=== PATIENT | female | born 1950 | race Caucasian/White ===

== ENCOUNTER 2021-08-04 17:07 | Inpatient (IN) ==
[2021-08-04] MEDS ORDERED: SODIUM CHLORIDE 0.9% 1000ML 500 ML IV ONE (17:13)
[2021-08-04] MEDS ORDERED: CEFEPIME 2,000 MG/20 ML VIAL IV STA (17:15)
--- NOTE | 2021-08-04 17:44 | XRay Report ---
XR chest 1V portable CLINICAL HISTORY: Sepsis. COMPARISON STUDY: No previous studies for comparison. FINDINGS: Dual lumen right internal jugular venous catheter is in place. No pneumothorax is identifie d although sensitivity is diminished on this supine exam. Cardiomegaly is accentuated on this study. Linear left basilar opacity favors atelectasis. Minimal linear right perihilar opacities are present. No evidence for pulmonary edema. No lobar consolidation. IMPRESSION: 1. Low lung volumes with linear bilateral opacities which favor atelectasis on this supine exam. 2. Mild enlargement of the cardiac silhouette. No evidence for pulmonary edema. 3. No pneumothorax identified. ACT 112: Negative or not required by law. Electronically signed by: Abram Pinon M.D. 08/04/2021 5:41 PM
--- NOTE | 2021-08-04 17:59 | CT Scan Report ---
CT OF THE HEAD WITHOUT CONTRAST CLINICAL HISTORY: Altered mental status. COMPARISON STUDY: No previous studies for comparison. TECHNIQUE: Helical axial images of the head were obtained without IV contrast. Automated exposure con trol was utilized for the study. A dose lowering technique was utilized adhering to the principles o f ALARA. FINDINGS: No acute intracranial hemorrhage, midline shift or mass effect is present. Prominence of th e extra-axial spaces is likely due to atrophy. The ventricular system is unremarkable. Basal cisterns are patent. There are no extra-axial collections. There is a small focus of encephalomalacia within the anterior right occipital lobe. This favors an old infarct. There are no findings to suggest acute dural sinus thrombosis or acute territorial infarct. White matter hypodensity suggests small vessel disease. Bilateral mastoid air cells are partially opacified. Sphenoid sinus because thickening is pr esent. No acute calvarial fracture. IMPRESSION: 1. No acute intracranial findings. 2. Moderate atrophy. 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 ACT 112: Negative or not required by law. Electronically signed by: Abram Pinon M.D. 08/04/2021 5:57 PM
--- NOTE | 2021-08-04 18:04 | Emergency Department Note ---
Impression & Plan Sepsis, AMS (altered mental status), Leukocytosis, Hypoxia ED Provider Note NAME: SHANEL HARDY AGE: 71 SEX: F : 1950 ARRIVES VIA: Ambulance INFORMANT: Patient ED PROVIDER(S): Nigel Begum DO CHIEF COMPLAINT: AMS HPI: Patient is a 71-year-old female who presents ER for the above AMS. Patient is a resident at [facility] on dialysis who presents to the ER for fever for the past 2 days associated with worsening confusion. History is limited secondary to mentation. Patient is rolling around on the bed moaning. Per senior living patient was doing well up until about 2 days ago and started having fevers. She was complaining of some back pain today otherwise has become significantly more confused ROS: History is limited secondary to mentation PAST MEDICAL HISTORY:See Below PAST SURGICAL HISTORY:See Below FAMILY HISTORY:See Below SOCIAL HISTORY:See Below HOME MEDICATIONS:See Below ALLERGIES:See Below VITALS:See Below PHYSICAL EXAMINATION: GENERAL: Lying in bed rolling around moaning EYE EXAM: normal conjunctiva. PERRL and EOM's grossly intact. OROPHARYNX: no exudate, no erythema, lips, buccal mucosa, and tongue normal and mucous membranes are moist NECK: supple, no nuchal rigidity, no adenopathy, non-tender CHEST: Central venous catheter located in right chest wall LUNGS: Bilaterally. Normal chest wall mechanics HEART: Tachy, S1 normal and S2 normal ABDOMEN: abdomen soft, non-tender, normo-active bowel sounds, no masses, no rebound or guarding. UPPER EXTREMITIES: upper extremities are grossly normal. LOWER EXTREMITIES: No pitting edema. NEURO EXAM: Moaning not following commands MEDICAL DECISION MAKING: Patient is a 71-year-old female who presents ER with above-stated complaint. IV was established blood was obtained. Labs show leukocytosis 25,000. No significant anemia. Blood work had to be redrawn for separate times. I-STAT showed potassium 7.4 although this was hemolyzed. Repeat blood work showed potassium 3.8 with a creatinine of 3.2 consistent with dialysis. Glucose was slightly up at 320. Lactate was normal. Troponin was elevated 0.23. Pro-Tez elevated at 8. Garcia was placed although unsure whether she makes urine or not regularly a fair amount of purulent material was removed. Covid was negative as well as influenza. Patient was given vancomycin and cefepime. Placed a central line in the right groin. Patient was placed on Levophed and this was titrated up due to the hypotension with systolic pressures in the 60s. Her baseline at senior living has been in the 90s. She was given a liter and half fluids prior to starting Levophed. Did also speak with his sister who notes that the patient is a DNR/DNI. Discussed starting vasopressors and she was unsure and noted that she would drive up but is over an hour away. As her her pressure deteriorated placed a central line for the pressors waiting for her sister. Stevie Lua PA-C was present at bedside and will discuss with sister additional goals of care. Triage Nursing notes reviewed. Limited review of prior medical records performed Vital Signs: reviewed and remarkable for no significant abnormalities Differential diagnosis: Differential diagnoses includes but is not limited to gastritis, peptic ulcer disease, GERD, gallbladder disease, pancreatitis, small bowel obstruction, acute coronary syndrome, pericarditis, ischemic bowel, irritable bowel disease, irritable bowel syndrome, appendicitis, diverticulitis, malignancy, hernia, urinary tract infection, torsion, /ectopic (if female), perforation, trauma, infectious. ER treatment provided: See below Diagnostics interpreted by me: ECG: Sinus tachycardia rate of 139 Left axis No PVCs QTC 447 Cardiac Monitoring: An order was placed for continuous cardiac monitoring. The monitor shows a rate of 120 with Sinus rhythm. Laboratory studies: As stated above and show below. Imaging studies: CT head was negative CT chest abdomen pelvis showed questionable inflammation around the gallbladder and questionable discitis Ultrasound of the gallbladder was limited but unremarkable X-rays of the right heel shows probable osteo- Consultation(s): Discussed with Lalit Roberson for further evaluation Procedures: PROCEDURE NOTE - Central Line Insertion - Ultrasound Guided PRIOR TO PROCEDURE: Consent: Discussion was not held with the patient concerning central line. The risks and benefits were not explained with possible risks to include bleeding, pain, pneumothorax, hemothorax, pulmonary contusion, pulmonary laceration, and infection. The patient was evaluated prior to the procedure. The patient was identified and the procedure verified as central line insertion. A Time Out was held and the following information confirmed. Verify Correct Patient: Yes Verify Correct Site: Yes Availability of Necessary Equipment: Yes PROCEDURE NOTE: Procedure: Central Line Inserting Clinician: Nigel Begum DO. Guide-wire was removed, examined and is intact Complication/Corrective Action: Entered vessel on the first attempt but wire kinked and this was withdrawn and was attempted one additional time Estimated Blood Loss: 5 mls US guided line placement: Yes CENTRAL LINE BUNDLE: Skin Prep: Chlorhexidine/alcohol Barriers Used: Mask: yes Sterile gown: yes Large sterile drape: yes Cap: yes Sterile gloves: yes Insertion Status: new site Indications - include all that apply: hypotension Placement Conditions: Emergent Site: Femoral Side: L Number of lumen(s): 3 Length of catheter inserted into patient: 20 centimeters Anesthesia: local Number of Needle Passes: 2 Radiological confirmation: Yes I performed the procedure. Critical Care: I have personally spent 80 minutes of critical care time in the direct management of this patient. This includes bedside care, interpretation of diagnostic studies, and testing, discussion with consultants, patient, and family members, and other required patient management activities. This 80 minutes is in excess of all separately billable procedures. Past Med/Surg History Medical History (Updated 08/04/21 @ 21:43 by Nigel Begum DO) Anemia in chronic renal disease Chronic kidney disease requiring chronic dialysis Chronic respiratory failure with hypoxia Coronary artery disease Depression Diabetic peripheral neuropathy History of CVA (cerebrovascular accident) History of gastrointestinal bleeding Hypertension Hypothyroidism Obesity Obstructive sleep apnea Social History Smoking Status: Unknown if ever smoked Feels Safe at Home: Yes Allergies Allergies Allergy/AdvReac Type Severity Reaction Status Date / Time cyclobenzaprine Allergy Unknown ON MED LIST Verified 08/04/21 17:39 [From Flexeril] Home Meds Home Medications Medication Instructions Recorded Confirmed acetaminophen 325 mg tablet 650 mg PO Q4H PRN 08/04/21 08/04/21 (Tylenol) atorvastatin 40 mg tablet 80 mg PO QDD 08/04/21 08/04/21 bisacodyl 10 mg rectal suppository 10 mg IL DAILY PRN 08/04/21 08/04/21 darbepoetin jono in polysorbat 60 60 mcg SUBCUT WK 08/04/21 08/04/21 mcg/0.3 mL (polysorb) subcutaneous pen injector docusate sodium 100 mg capsule 100 mg PO BID 08/04/21 08/04/21 duloxetine 30 mg capsule,delayed 30 mg PO DAILY 08/04/21 08/04/21 release furosemide 80 mg tablet (Lasix) 80 mg PO BID 08/04/21 08/04/21 gabapentin 100 mg capsule 200 mg PO HS 08/04/21 08/04/21 levothyroxine 88 mcg tablet 88 mcg PO DAILYBB 08/04/21 08/04/21 magnesium hydroxide 400 mg/5 mL 30 ml PO DAILY PRN 08/04/21 08/04/21 oral suspension (Milk of Magnesia) midodrine 10 mg tablet 20 mg PO 3XWK 08/04/21 08/04/21 nystatin 100,000 unit/gram topical 1 applic TOPICAL BID 08/04/21 08/04/21 powder pantoprazole 40 mg tablet,delayed 40 mg PO BID 08/04/21 08/04/21 release piperacillin-tazobactam 2.25 gram 2.25 g IV Q8H 08/04/21 08/04/21 intravenous solution polyethylene glycol 3350 17 17 g PO QDL PRN 08/04/21 08/04/21 gram/dose oral powder (Miralax) sennosides 8.6 mg-docusate sodium 1 tab-cap PO QDL PRN 08/04/21 08/04/21 50 mg tablet (Senokot-S) tamsulosin 0.4 mg capsule (Flomax) 0.4 mg PO HS 08/04/21 08/04/21 tramadol 50 mg tablet 50 mg PO Q12H PRN 08/04/21 08/04/21 vitamin B complex and vitamin C 1 cap PO DAILY 08/04/21 08/04/21 no.20-folic acid 1 mg capsule Results & Data (ED) Vital Signs Vital Signs - 24 hr 08/04/21 17:13 08/04/21 17:15 08/04/21 17:22 Temperature 38.6 C H Temperature Source Axillary Pulse Rate 137 H 128 H 136 H Pulse Rate [Right] Pulse Rate from SpO2 Sensor 136 H Pulse Rhythm Irregular Pulse Rhythm [Right] Respiratory Rate 23 20 20 Respiratory Effort / Characteristics Non-Labored Spontaneous Respiratory Depth Respiratory Pattern Regular Blood Pressure 103/64 Blood Pressure [Right Arm] Blood Pressure Mean 77 Blood Pressure Mean [Right Arm] Blood Pressure Position Lying Blood Pressure Position [Right Arm] Pulse Oximetry 94 94 Oxygen Delivery Method Nasal Cannula Nasal Cannula Oxygen Flow Rate 2 2 Sepsis Recent Fever Within 48 Hours Yes Sepsis New/Unexplained Change in Mental Status Yes Sepsis Action Taken by Nursing Previously Notified 08/04/21 17:30 08/04/21 17:34 08/04/21 17:38 Temperature Temperature Source Pulse Rate 121 H Pulse Rate [Right] Pulse Rate from SpO2 Sensor 136 H Pulse Rhythm Pulse Rhythm [Right] Respiratory Rate 17 Respiratory Effort / Characteristics Non-Labored Respiratory Depth Respiratory Pattern Blood Pressure Blood Pressure [Right Arm] Blood Pressure Mean Blood Pressure Mean [Right Arm] Blood Pressure Position Blood Pressure Position [Right Arm] Pulse Oximetry 93 94 84 L Oxygen Delivery Method Nasal Cannula Nasal Cannula Oxygen Flow Rate 2 2 Sepsis Recent Fever Within 48 Hours Sepsis New/Unexplained Change in Mental Status Sepsis Action Taken by Nursing 08/04/21 17:53 08/04/21 18:00 08/04/21 18:28 Temperature Temperature Source Pulse Rate 128 H 135 H Pulse Rate [Right] 126 H Pulse Rate from SpO2 Sensor 128 H Pulse Rhythm Pulse Rhythm [Right] Irregular Respiratory Rate 22 18 20 Respiratory Effort / Characteristics Respiratory Depth Respiratory Pattern Blood Pressure 75/45 L 90/49 L Blood Pressure [Right Arm] 95/40 L Blood Pressure Mean 55 62 Blood Pressure Mean [Right Arm] 58 Blood Pressure Position Blood Pressure Position [Right Arm] Pulse Oximetry 92 95 Oxygen Delivery Method Nasal Cannula Oxygen Flow Rate 2 Sepsis Recent Fever Within 48 Hours Sepsis New/Unexplained Change in Mental Status Sepsis Action Taken by Nursing 08/04/21 19:00 Temperature 39 C H Temperature Source Rectal Pulse Rate Pulse Rate [Right] 119 H Pulse Rate from SpO2 Sensor Pulse Rhythm Pulse Rhythm [Right] Regular Respiratory Rate 24 Respiratory Effort / Characteristics Moaning Respiratory Depth Normal Respiratory Pattern Blood Pressure Blood Pressure [Right Arm] Blood Pressure Mean Blood Pressure Mean [Right Arm] Blood Pressure Position Blood Pressure Position [Right Arm] Lying Pulse Oximetry 95 Oxygen Delivery Method Nasal Cannula Oxygen Flow Rate 2 Sepsis Recent Fever Within 48 Hours Sepsis New/Unexplained Change in Mental Status Sepsis Action Taken by Nursing Laboratory Data Result diagrams: 08/04/21 17:20 08/04/21 19:21 Lab Results 08/04/21 08/04/21 08/04/21 Range/Units 17:20 17:20 17:20 WBC 25.90 H D (4.8-10.8) K/uL RBC 4.26 (4.2-5.4) M/uL Hgb 12.0 (12.0-16.0) g/dL POC Hgb (12.0-16.0) g/dl Hct 38.5 (37-47) % POC Hct (37-47) % MCV 90.4 (80-100) fL MCH 28.2 (25-34) pg MCHC 31.2 L (32-36) g/dL RDW Std Deviation 58.9 H (36.4-46.3) fL RDW Coeff of Juno 17.8 H (11.5-14.5) % Plt Count 244 (130-400) K/uL MPV 11.2 H (7.4-10.4) fL Immature Gran % (Auto) 0.4 % Neut % (Auto) 84.8 % Lymph % (Auto) 7.7 % Falls % (Auto) 6.9 % Eos % (Auto) 0.0 % Baso % (Auto) 0.2 % Neut # (Auto) 21.97 H (1.4-6.5) K/uL Lymph # (Auto) 2.00 (1.2-3.4) K/uL Falls # (Auto) 1.78 H (0.11-0.59) K/uL Eos # (Auto) 0.00 (0-0.5) K/uL Baso # (Auto) 0.05 (0-0.2) K/uL Immature Gran # (Auto) 0.10 H (0.00-0.02) K/uL RBC Morphology Unremarkable PT Cancelled INR Cancelled APTT Cancelled PTT Ratio Cancelled POC Sodium (135-144) mmol/L Sodium Cancelled POC Potassium (3.3-5.0) mmol/L Potassium Cancelled POC Chloride (101-112) mmol/L Chloride Cancelled Carbon Dioxide Cancelled POC Total CO2 (24-31) mmol/L Anion Gap Cancelled POC Anion Gap (16-25) mmol/L POC BUN (7-18) mg/dl BUN Cancelled Creatinine Cancelled POC Creatinine (0.6-1.3) mg/dl Est Cr Clr Drug Dosing Cancelled Est GFR ( Amer) Cancelled Est GFR (Non-Af Amer) Cancelled BUN/Creatinine Ratio Cancelled Glucose Cancelled POC Glucose (other) (70-99) mg/dl Lactate (0.4-2.0) mmol/L Calcium Cancelled POC Ioniz Calcium Amy (1.12-1.32) mmol/l Magnesium Cancelled Total Bilirubin Cancelled AST Cancelled ALT Cancelled Alkaline Phosphatase Cancelled Troponin I Cancelled Total Protein Cancelled Albumin Cancelled Globulin Cancelled Albumin/Globulin Ratio Cancelled Procalcitonin Urine Color Urine Appearance (Clear) Urine pH (4.5-7.5) Ur Specific [place] (1.000-1.030) Urine Protein (Negative) Urine Glucose (UA) (Negative) Urine Ketones (Negative) Urine Blood (Negative) Urine Nitrite (Negative) Urine Bilirubin (Negative) Urine Urobilinogen (Negative) Ur Leukocyte Esterase (Negative) Urine WBC (Auto) (0-5) /hpf Urine RBC (Auto) (0-4) /hpf U Hyaline Cast (Auto) (0-5) /lpf U Epithel Cells (Auto) (0-5) /lpf Urine Bacteria (Auto) (Negative) Urine Yeast SARS-CoV-2 (PCR) (Negative) Influenza Type A (PCR) (Neg) Influenza Type B (PCR) (Neg) RSV (RT-PCR) (Neg) 08/04/21 08/04/21 08/04/21 Range/Units 17:20 17:20 17:30 WBC (4.8-10.8) K/uL RBC (4.2-5.4) M/uL Hgb (12.0-16.0) g/dL POC Hgb (12.0-16.0) g/dl Hct (37-47) % POC Hct (37-47) % MCV (80-100) fL MCH (25-34) pg MCHC (32-36) g/dL RDW Std Deviation (36.4-46.3) fL RDW Coeff of Juno (11.5-14.5) % Plt Count (130-400) K/uL MPV (7.4-10.4) fL Immature Gran % (Auto) % Neut % (Auto) % Lymph % (Auto) % Falls % (Auto) % Eos % (Auto) % Baso % (Auto) % Neut # (Auto) (1.4-6.5) K/uL Lymph # (Auto) (1.2-3.4) K/uL Falls # (Auto) (0.11-0.59) K/uL Eos # (Auto) (0-0.5) K/uL Baso # (Auto) (0-0.2) K/uL Immature Gran # (Auto) (0.00-0.02) K/uL RBC Morphology PT INR APTT PTT Ratio POC Sodium (135-144) mmol/L Sodium POC Potassium (3.3-5.0) mmol/L Potassium POC Chloride (101-112) mmol/L Chloride Carbon Dioxide POC Total CO2 (24-31) mmol/L Anion Gap POC Anion Gap (16-25) mmol/L POC BUN (7-18) mg/dl BUN Creatinine POC Creatinine (0.6-1.3) mg/dl Est Cr Clr Drug Dosing Est GFR ( Amer) Est GFR (Non-Af Amer) BUN/Creatinine Ratio Glucose POC Glucose (other) (70-99) mg/dl Lactate 1.9 (0.4-2.0) mmol/L Calcium POC Ioniz Calcium Amy (1.12-1.32) mmol/l Magnesium Total Bilirubin AST ALT Alkaline Phosphatase Troponin I Total Protein Albumin Globulin Albumin/Globulin Ratio Procalcitonin Cancelled Urine Color Urine Appearance (Clear) Urine pH (4.5-7.5) Ur Specific [place] (1.000-1.030) Urine Protein (Negative) Urine Glucose (UA) (Negative) Urine Ketones (Negative) Urine Blood (Negative) Urine Nitrite (Negative) Urine Bilirubin (Negative) Urine Urobilinogen (Negative) Ur Leukocyte Esterase (Negative) Urine WBC (Auto) (0-5) /hpf Urine RBC (Auto) (0-4) /hpf U Hyaline Cast (Auto) (0-5) /lpf U Epithel Cells (Auto) (0-5) /lpf Urine Bacteria (Auto) (Negative) Urine Yeast SARS-CoV-2 (PCR) NEGATIVE (Negative) Influenza Type A (PCR) Negative (Neg) Influenza Type B (PCR) Negative (Neg) RSV (RT-PCR) Negative (Neg) 08/04/21 08/04/21 08/04/21 Range/Units 18:31 18:31 18:31 WBC (4.8-10.8) K/uL RBC (4.2-5.4) M/uL Hgb (12.0-16.0) g/dL POC Hgb (12.0-16.0) g/dl Hct (37-47) % POC Hct (37-47) % MCV (80-100) fL MCH (25-34) pg MCHC (32-36) g/dL RDW Std Deviation (36.4-46.3) fL RDW Coeff of Juno (11.5-14.5) % Plt Count (130-400) K/uL MPV (7.4-10.4) fL Immature Gran % (Auto) % Neut % (Auto) % Lymph % (Auto) % Falls % (Auto) % Eos % (Auto) % Baso % (Auto) % Neut # (Auto) (1.4-6.5) K/uL Lymph # (Auto) (1.2-3.4) K/uL Falls # (Auto) (0.11-0.59) K/uL Eos # (Auto) (0-0.5) K/uL Baso # (Auto) (0-0.2) K/uL Immature Gran # (Auto) (0.00-0.02) K/uL RBC Morphology PT Cancelled INR Cancelled APTT Cancelled PTT Ratio Cancelled POC Sodium (135-144) mmol/L Sodium Cancelled POC Potassium (3.3-5.0) mmol/L Potassium Cancelled POC Chloride (101-112) mmol/L Chloride Cancelled Carbon Dioxide Cancelled POC Total CO2 (24-31) mmol/L Anion Gap Cancelled POC Anion Gap (16-25) mmol/L POC BUN (7-18) mg/dl BUN Cancelled Creatinine Cancelled POC Creatinine (0.6-1.3) mg/dl Est Cr Clr Drug Dosing Cancelled Est GFR ( Amer) Cancelled Est GFR (Non-Af Amer) Cancelled BUN/Creatinine Ratio Cancelled Glucose Cancelled POC Glucose (other) (70-99) mg/dl Lactate (0.4-2.0) mmol/L Calcium Cancelled POC Ioniz Calcium Amy (1.12-1.32) mmol/l Magnesium Cancelled Total Bilirubin Cancelled AST Cancelled ALT Cancelled Alkaline Phosphatase Cancelled Troponin I Cancelled Total Protein Cancelled Albumin Cancelled Globulin Cancelled Albumin/Globulin Ratio Cancelled Procalcitonin Cancelled Urine Color Urine Appearance (Clear) Urine pH (4.5-7.5) Ur Specific [place] (1.000-1.030) Urine Protein (Negative) Urine Glucose (UA) (Negative) Urine Ketones (Negative) Urine Blood (Negative) Urine Nitrite (Negative) Urine Bilirubin (Negative) Urine Urobilinogen (Negative) Ur Leukocyte Esterase (Negative) Urine WBC (Auto) (0-5) /hpf Urine RBC (Auto) (0-4) /hpf U Hyaline Cast (Auto) (0-5) /lpf U Epithel Cells (Auto) (0-5) /lpf Urine Bacteria (Auto) (Negative) Urine Yeast SARS-CoV-2 (PCR) (Negative) Influenza Type A (PCR) (Neg) Influenza Type B (PCR) (Neg) RSV (RT-PCR) (Neg) 08/04/21 08/04/21 08/04/21 Range/Units 18:40 19:10 19:21 WBC (4.8-10.8) K/uL RBC (4.2-5.4) M/uL Hgb (12.0-16.0) g/dL POC Hgb 11.6 L (12.0-16.0) g/dl Hct (37-47) % POC Hct 34 L (37-47) % MCV (80-100) fL MCH (25-34) pg MCHC (32-36) g/dL RDW Std Deviation (36.4-46.3) fL RDW Coeff of Juno (11.5-14.5) % Plt Count (130-400) K/uL MPV (7.4-10.4) fL Immature Gran % (Auto) % Neut % (Auto) % Lymph % (Auto) % Falls % (Auto) % Eos % (Auto) % Baso % (Auto) % Neut # (Auto) (1.4-6.5) K/uL Lymph # (Auto) (1.2-3.4) K/uL Falls # (Auto) (0.11-0.59) K/uL Eos # (Auto) (0-0.5) K/uL Baso # (Auto) (0-0.2) K/uL Immature Gran # (Auto) (0.00-0.02) K/uL RBC Morphology PT INR APTT PTT Ratio POC Sodium 131 L (135-144) mmol/L Sodium 135 L POC Potassium 7.4 H* (3.3-5.0) mmol/L Potassium 3.8 POC Chloride 103 (101-112) mmol/L Chloride 100 Carbon Dioxide 21 POC Total CO2 23 L (24-31) mmol/L Anion Gap 14 H POC Anion Gap 13.0 L (16-25) mmol/L POC BUN 29 H (7-18) mg/dl BUN 21 Creatinine 3.22 H D POC Creatinine 3.1 H (0.6-1.3) mg/dl Est Cr Clr Drug Dosing 17.9 Est GFR ( Amer) 16.1 Est GFR (Non-Af Amer) 13.9 BUN/Creatinine Ratio 6.5 L Glucose 320 H* POC Glucose (other) 332 H (70-99) mg/dl Lactate (0.4-2.0) mmol/L Calcium 7.7 L POC Ioniz Calcium Amy 0.95 L (1.12-1.32) mmol/l Magnesium 1.5 L Total Bilirubin 0.6 AST 61 H ALT 22 Alkaline Phosphatase 74 Troponin I 0.23 H* Total Protein 5.6 L Albumin 2.4 L Globulin 3.2 Albumin/Globulin Ratio 0.8 L Procalcitonin Urine Color Dark Yellow Urine Appearance Turbid A (Clear) Urine pH 5.0 (4.5-7.5) Ur Specific [place] 1.016 (1.000-1.030) Urine Protein 3+ H (Negative) Urine Glucose (UA) Trace H (Negative) Urine Ketones Trace H (Negative) Urine Blood 2+ H (Negative) Urine Nitrite Negative (Negative) Urine Bilirubin Negative (Negative) Urine Urobilinogen Negative (Negative) Ur Leukocyte Esterase 3+ H (Negative) Urine WBC (Auto) >30 H (0-5) /hpf Urine RBC (Auto) 5-10 H (0-4) /hpf U Hyaline Cast (Auto) 1-5 (0-5) /lpf U Epithel Cells (Auto) >30 H (0-5) /lpf Urine Bacteria (Auto) 4+ H (Negative) Urine Yeast Not Reportable SARS-CoV-2 (PCR) (Negative) Influenza Type A (PCR) (Neg) Influenza Type B (PCR) (Neg) RSV (RT-PCR) (Neg) 08/04/21 Range/Units 19:21 WBC (4.8-10.8) K/uL RBC (4.2-5.4) M/uL Hgb (12.0-16.0) g/dL POC Hgb (12.0-16.0) g/dl Hct (37-47) % POC Hct (37-47) % MCV (80-100) fL MCH (25-34) pg MCHC (32-36) g/dL RDW Std Deviation (36.4-46.3) fL RDW Coeff of Juno (11.5-14.5) % Plt Count (130-400) K/uL MPV (7.4-10.4) fL Immature Gran % (Auto) % Neut % (Auto) % Lymph % (Auto) % Falls % (Auto) % Eos % (Auto) % Baso % (Auto) % Neut # (Auto) (1.4-6.5) K/uL Lymph # (Auto) (1.2-3.4) K/uL Falls # (Auto) (0.11-0.59) K/uL Eos # (Auto) (0-0.5) K/uL Baso # (Auto) (0-0.2) K/uL Immature Gran # (Auto) (0.00-0.02) K/uL RBC Morphology PT 14.2 H INR 1.4 H APTT 31.0 PTT Ratio 1.1 POC Sodium (135-144) mmol/L Sodium POC Potassium (3.3-5.0) mmol/L Potassium POC Chloride (101-112) mmol/L Chloride Carbon Dioxide POC Total CO2 (24-31) mmol/L Anion Gap POC Anion Gap (16-25) mmol/L POC BUN (7-18) mg/dl BUN Creatinine POC Creatinine (0.6-1.3) mg/dl Est Cr Clr Drug Dosing Est GFR ( Amer) Est GFR (Non-Af Amer) BUN/Creatinine Ratio Glucose POC Glucose (other) (70-99) mg/dl Lactate (0.4-2.0) mmol/L Calcium POC Ioniz Calcium Amy (1.12-1.32) mmol/l Magnesium Total Bilirubin AST ALT Alkaline Phosphatase Troponin I Total Protein Albumin Globulin Albumin/Globulin Ratio Procalcitonin Urine Color Urine Appearance (Clear) Urine pH (4.5-7.5) Ur Specific [place] (1.000-1.030) Urine Protein (Negative) Urine Glucose (UA) (Negative) Urine Ketones (Negative) Urine Blood (Negative) Urine Nitrite (Negative) Urine Bilirubin (Negative) Urine Urobilinogen (Negative) Ur Leukocyte Esterase (Negative) Urine WBC (Auto) (0-5) /hpf Urine RBC (Auto) (0-4) /hpf U Hyaline Cast (Auto) (0-5) /lpf U Epithel Cells (Auto) (0-5) /lpf Urine Bacteria (Auto) (Negative) Urine Yeast SARS-CoV-2 (PCR) (Negative) Influenza Type A (PCR) (Neg) Influenza Type B (PCR) (Neg) RSV (RT-PCR) (Neg) Administered Medications Norepinephrine Bitartrate (Levophed/D5w) 8 mg in 508 mls @ 16.193 mls/hr IV .Q24H HUEY; Protocol Stop: 09/03/21 18:29 Last Titration: 08/04/21 21:00 Dose: 0.09 mcg/kg/min, 29.1 mls/hr Documented by: [id number] Titration: 08/04/21 20:40 Dose: 0.07 mcg/kg/min, 22.7 mls/hr Documented by: [id number] Admin: 08/04/21 19:12 Dose: 0.05 mcg/kg/min, 16.2 mls/hr Documented by: [id number] Cosigned by: [id number] Discontinued Medications Acetaminophen (Acetaminophen 500 Mg Tab) 1,000 mg PO NOW STA Stop: 08/04/21 18:13 Last Admin: 08/04/21 21:13 Dose: Not Given Documented by: [id number] Acetaminophen (Acetaminophen 1000 Mg/100 Ml Iv) 1,000 mg IV NOW STA Stop: 08/04/21 18:47 Last Admin: 08/04/21 18:54 Dose: 1,000 mg Documented by: [id number] Sodium Chloride (Nss 1000ml) 500 mls @ 999 mls/hr IV .Q31M ONE Stop: 08/04/21 17:43 Last Infusion: 08/04/21 18:02 Dose: 0 mls/hr Documented by: [id number] Admin: 08/04/21 17:28 Dose: 999 mls/hr Documented by: [id number] Cefepime HCl (Maxipime) 2,000 mg in 20 mls @ 5 mls/min IV NOW STA; Protocol Stop: 08/04/21 17:18 Last Admin: 08/04/21 17:28 Dose: 5 mls/min Documented by: [id number] Vancomycin HCl 1,750 mg/ (Sodium Chloride) 535 mls @ 200 mls/hr IV NOW ONE Stop: 08/04/21 21:02 Last Admin: 08/04/21 19:17 Dose: 200 mls/hr Documented by: [id number] Calcium Gluconate () 1,000 mg in 60 mls @ 240 mls/hr IV NOW STA Stop: 08/04/21 18:56 Last Admin: 08/04/21 21:10 Dose: Not Given Documented by: [id number] Miscellaneous (Stat Iv Infusion Titration Per Protocol) 1 ea N/A NOW STA Stop: 08/04/21 18:22 Last Admin: 08/04/21 21:12 Dose: 1 ea Documented by: [id number] Patiromer (Patiromer Calcium Sorbitex 8.4 Gm Pack) 8.4 gm PO ONE STA Stop: 08/04/21 19:05 Last Admin: 08/04/21 21:13 Dose: Not Given Documented by: [id number] Sodium Bicarbonate (Sodium Bicarb 8.4% Inj 50 Meq/50 Ml Syr) 100 meq IV NOW STA Stop: 08/04/21 18:43 Last Admin: 08/04/21 21:11 Dose: Not Given Documented by: [id number] Imaging Data Radiologist's Impression: Chest X-Ray 08/04/21 17:13 XR chest 1V portable CLINICAL HISTORY: Sepsis. COMPARISON STUDY: No previous studies for comparison. FINDINGS: Dual lumen right internal jugular venous catheter is in place. No pneumothorax is identified although sensitivity is diminished on this supine exam. Cardiomegaly is accentuated on this study. Linear left basilar opacity favors atelectasis. Minimal linear right perihilar opacities are present. No evidence for pulmonary edema. No lobar consolidation. IMPRESSION: 1. Low lung volumes with linear bilateral opacities which favor atelectasis on this supine exam. 2. Mild enlargement of the cardiac silhouette. No evidence for pulmonary edema. 3. No pneumothorax identified. ACT 112: Negative or not required by law. Electronically signed by: Abram Pinon M.D. 08/04/2021 5:41 PM Abdomen/Pelvis CT 08/04/21 17:15 CT OF THE ABDOMEN AND PELVIS WITHOUT CONTRAST CLINICAL HISTORY: Altered mental status. Possible sepsis. COMPARISON STUDY: No previous studies for comparison. TECHNIQUE: Axial images of the abdomen and pelvis were obtained without IV contrast. Images were reviewed in the axial, sagittal, and coronal planes. Automated exposure control was utilized for the study. A dose lowering technique was utilized adhering to the principles of ALARA. FINDINGS: Please note that the chest CT will be reported separately. No pneumatosis, free air or portal venous gas is present. Evaluation of the abdomen and pelvis is suboptimal as unenhanced exam. Unenhanced images of the liver, spleen, adrenal glands and pancreas are unremarkable. There is pancreatic g landular atrophy. There is no biliary or pancreatic ductal dilatation. There may be mild pericholecystic infiltration. This could be related to motion artifact. Gallbladder is mildly distended. There is no hydronephrosis. Marked left and moderate right renal atrophy is present. There is no evidence for a bowel obstruction. The appendix is normal. Moderate amount stool within the rectum is present. No ascites is present. There is no lymphadenopathy. No acute fracture or suspicious lesion is identified within the visualized skeletal structures. There are old bilateral inferior pubic rami fractures. Moderate atherosclerotic plaque is noted within the abdominal aorta and branch vessels. IMPRESSION: 1. Mild pericholecystic infiltration. Although this could be due to motion artifact, a right upper quadrant ultrasound is recommended to exclude the possibility of acute cholecystitis. 2. No bowel obstruction. No bowel wall thickening on unenhanced exam. Moderate amount of stool within the rectum. 3. Marked left and moderate right renal atrophy. No hydronephrosis. ACT 112: Negative or not required by law. Electronically signed by: Abram Pinon M.D. 08/04/2021 6:[address] 08/04/21 17:15 CT OF THE CHEST WITHOUT IV CONTRAST CLINICAL HISTORY: Altered mental status. Possible sepsis. COMPARISON STUDY: Chest radiograph performed earlier today. CT DOSE: 2533.88 mGy.cm TECHNIQUE: Axial images of the chest were obtained without IV contrast. Images were reviewed in the axial, sagittal, and coronal planes. IV contrast was not administered for this examination. Automated exposure control was utilized for the study. A dose lowering technique was utilized adhering to the principles of ALARA. FINDINGS: Right internal jugular dual lumen catheter is in place. Moderate cardiomegaly is noted. There is extensive coronary artery calcification. No pericardial effusion is noted. There is mild dilatation of the ascending aorta, measuring 4.1 cm. There is also dilatation of the central pulmonary arteries. Main pulmonary artery measures 3.7 cm in caliber. There is no pneumothorax or pleural effusion. Linear bilateral opacities reflect atelectasis. There are also mild ground glass opacities within the lungs. There is no consolidation to suggest pneumonia. Abdomen and pelvis will be reported separately. There is no thoracic lymphadenopathy. Note is made of disc space narrowing at T10-T11 with irregularity of the inferior endplate of T10 and superior endplate of T11. No paravertebral infiltration is identified IMPRESSION: 1. No consolidation to suggest pneumonia. Linear bilateral opacities consistent with atelectasis. Mild diffuse ground glass opacities are nonspecific although not highly suggestive of an infectious process. 2. Disc space narrowing at T10-T11 with adjacent endplate irregularity. This is likely degenerative. An infectious process such as discitis/osteomyelitis is considered less likely. However, if clinical suspicion for an infectious pr ocess, MRI of the thoracic spine with and without contrast is recommended . 3. Moderate cardiomegaly. Extensive coronary artery calcification. ACT 112: Negative or not required by law. Electronically signed by: Abram Pinon M.D. 08/04/2021 6:[address] 08/04/21 17:15 CT OF THE HEAD WITHOUT CONTRAST CLINICAL HISTORY: Altered mental status. COMPARISON STUDY: No previous studies for comparison. TECHNIQUE: Helical axial images of the head were obtained without IV contrast. Automated exposure control was utilized for the study. A dose lowering technique was utilized adhering to the principles of ALARA. FINDINGS: No acute intracranial hemorrhage, midline shift or mass effect is present. Prominence of the extra-axial spaces is likely due to atrophy. The ventricular system is unremarkable. Basal cisterns are patent. There are no extra-axial collections. There is a small focus of encephalomalacia within the anterior right occipital lobe. This favors an old infarct. There are no findings to suggest acute dural sinus thrombosis or acute territorial infarct. White matter hypodensity suggests small vessel disease. Bilateral mastoid air cells are partially opacified. Sphenoid sinus because thickening is present. No acute calvarial fracture. IMPRESSION: 1. No acute intracranial findings. 2. Moderate atrophy. 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 ACT 112: Negative or not required by law. Electronically signed by: Abram Pinon M.D. 08/04/2021 5:57 PM Calcaneus X-Ray 08/04/21 18:23 XR calcaneus RT min 2V CLINICAL HISTORY: ? osteo COMPARISON: None FINDINGS: Best shown on axial projection, there is probable bony erosion of the posterior aspect of the right calcaneus. There is an overlying suspected wound with soft tissue swelling. Osteopenia is noted. There is plantar calcaneal spurring. Extensive degenerative changes of the right tibiotalar and subtalar joints are present. There is extensive vascular calcification. IMPRESSION: 1. Probable erosion of the posterior aspect of the calcaneus with overlying wound. This is suggestive of osteomyelitis. 2. Extensive degenerative changes of the right ankle. Osteopenia. ACT 112: Negative or not required by law. Electronically signed by: Abram Pinon M.D. 08/04/2021 6:58 PM Gallbladder Ultrasound 08/04/21 18:23 US gallbladder CLINICAL HISTORY: Possible sepsis. COMPARISON STUDY: CT of the abdomen and pelvis performed earlier today. FINDINGS: No hepatic lesions are identified although sensitivity is diminished on this exam given suboptimal penetration. There is no biliary ductal dilatation. Common bile duct measures 4 mm in caliber. Pancreatic body is normal. Head and tail are partially obscured. Sonographic Cerda sign could not be assessed for in this patient. No gallstones were identified. No definite gallbladder wall thickening. Internal echoes within the gallbladder probably artifactual. There is no right hydronephrosis. IMPRESSION: 1. No gallstones or biliary ductal dilatation. 2. Technically difficult exam but no convincing evidence for acute cholecystiti s. ACT 112: Negative or not required by law. Electronically signed by: Abram Pinon M.D. 08/04/2021 7:17 PM Discharge Plan Visit Data Chief Complaint: Confusion Stated Complaint: AMS, FEVER, POSSIBLE SEPSIS ED Provider: Nigel Begum Discharge Problem: Sepsis, AMS (altered mental status), Leukocytosis, Hypoxia Patient Disposition: Admitted As Inpatient Discharge Instructions Interventions: ED Discharge Assessment Last Done: 08/04/21 20:19
--- NOTE | 2021-08-04 18:11 | CT Scan Report ---
CT OF THE CHEST WITHOUT IV CONTRAST CLINICAL HISTORY: Altered mental status. Possible sepsis. COMPARISON STUDY: Chest radiograph performed earlier today. CT DOSE: 2533.88 mGy.cm TECHNIQUE: Axial images of the chest were obtained without IV contrast. Images were reviewed in the axial, sagittal, and coronal planes. IV contrast was not administered for this examination. Automat ed exposure control was utilized for the study. A dose lowering technique was utilized adhering to t principles of ALARA. FINDINGS: Right internal jugular dual lumen catheter is in place. Moderate cardiomegaly is noted. Th ere is extensive coronary artery calcification. No pericardial effusion is noted. There is mild dilat ation of the ascending aorta, measuring 4.1 cm. There is also dilatation of the central pulmonary art eries. Main pulmonary artery measures 3.7 cm in caliber. There is no pneumothorax or pleural effusion . Linear bilateral opacities reflect atelectasis. There are also mild ground glass opacities within t he lungs. There is no consolidation to suggest pneumonia. Abdomen and pelvis will be reported separat rene. There is no thoracic lymphadenopathy. Note is made of disc space narrowing at T10-T11 with irreg ularity of the inferior endplate of T10 and superior endplate of T11. No paravertebral infiltration i s identified IMPRESSION: 1. No consolidation to suggest pneumonia. Linear bilateral opacities consistent with atelectasis. Mil d diffuse ground glass opacities are nonspecific although not highly suggestive of an infectious proc ess. 2. Disc space narrowing at T10-T11 with adjacent endplate irregularity. This is likely degenerative. An infectious process such as discitis/osteomyelitis is considered less likely. However, if clinical suspicion for an infectious process, MRI of the thoracic spine with and without contrast is recommend ed . 3. Moderate cardiomegaly. Extensive coronary artery calcification. ACT 112: Negative or not required by law. Electronically signed by: Abram Pinon M.D. 08/04/2021 6:08 PM
[2021-08-04] MEDS ORDERED: ACETAMINOPHEN 500 MG TAB PO STA (18:12)
[2021-08-04 18:15] LABS: Hematocrit (blood only) 38.5 % (37-47); Mean Corpuscular Hemoglobin 28.2 pg (25-34); Mean Corpuscular Hgb Conc 31.2 g/dL (32-36); Mean Corpuscular Volume 90.4 fL (80-100); Mean Platelet Volume 11.2 fL (7.4-10.4); Platelet Count 244 K/uL (130-400); RDW Coefficient of Variation 17.8 % (11.5-14.5); RDW Standard Deviation 58.9 fL (36.4-46.3); Red Blood Count 4.26 M/uL (4.2-5.4)
[2021-08-04] MEDS ORDERED: STAT IV Infusion **Titration per Protocol STA (18:21)
[2021-08-04] MEDS ORDERED: VANCOMYCIN HCL 1,750 MG in SODIUM CHLORIDE 0.9% 500 ML IV ONE (18:22)
[2021-08-04] MEDS ORDERED: VANCOMYCIN CONSULT ACTIVE PRN (18:22)
--- NOTE | 2021-08-04 18:22 | CT Scan Report ---
CT OF THE ABDOMEN AND PELVIS WITHOUT CONTRAST CLINICAL HISTORY: Altered mental status. Possible sepsis. COMPARISON STUDY: No previous studies for comparison. TECHNIQUE: Axial images of the abdomen and pelvis were obtained without IV contrast. Images were revi ewed in the axial, sagittal, and coronal planes. Automated exposure control was utilized for the suman dy. A dose lowering technique was utilized adhering to the principles of ALARA. FINDINGS: Please note that the chest CT will be reported separately. No pneumatosis, free air or port al venous gas is present. Evaluation of the abdomen and pelvis is suboptimal as unenhanced exam. Unen hanced images of the liver, spleen, adrenal glands and pancreas are unremarkable. There is pancreatic glandular atrophy. There is no biliary or pancreatic ductal dilatation. There may be mild pericholec ystic infiltration. This could be related to motion artifact. Gallbladder is mildly distended. There is no hydronephrosis. Marked left and moderate right renal atrophy is present. There is no evidence f or a bowel obstruction. The appendix is normal. Moderate amount stool within the rectum is present. N o ascites is present. There is no lymphadenopathy. No acute fracture or suspicious lesion is identifi ed within the visualized skeletal structures. There are old bilateral inferior pubic rami fractures. Moderate atherosclerotic plaque is noted within the abdominal aorta and branch vessels. IMPRESSION: 1. Mild pericholecystic infiltration. Although this could be due to motion artifact, a right upper qu adrant ultrasound is recommended to exclude the possibility of acute cholecystitis. 2. No bowel obstruction. No bowel wall thickening on unenhanced exam. Moderate amount of stool within the rectum. 3. Marked left and moderate right renal atrophy. No hydronephrosis. ACT 112: Negative or not required by law. Electronically signed by: Abram Pinon M.D. 08/04/2021 6:20 PM
[2021-08-04 18:38] LABS: Influenza A virus by PCR Negative (Neg); Influenza B virus by PCR Negative (Neg); RSV by PCR Negative (Neg); SARS CoV2 RNA(COVID-19) InHosp NEGATIVE (Negative)
[2021-08-04] MEDS ORDERED: SODIUM BICARB 8.4% INJ 50 MEQ/50 ML SYR IV STA (18:42)
[2021-08-04] MEDS ORDERED: CALCIUM GLUCONATE 1,000 MG/60 ML BAG IV STA (18:42)
[2021-08-04 18:44] LABS: Basophils # (auto) 0.05 K/uL (0-0.2); Basophils % (auto) 0.2 %; Immature Granulocytes % (auto) 0.4 %; Lymphocytes % (auto) 7.7 %; Monocytes # (auto) 1.78 K/uL (0.11-0.59); Monocytes % (auto) 6.9 %; Neutrophils # (auto) 21.97 K/uL (1.4-6.5); Neutrophils % (auto) 84.8 %; RBC Morphology Unremarkable
[2021-08-04] MEDS ORDERED: ACETAMINOPHEN 1000 MG/100 ML IV IV STA (18:46)
[2021-08-04] MEDS ORDERED: ACETAMINOPHEN 1000 MG/100 ML IV IV ONE (18:47)
[2021-08-04 18:54] LABS: iSTAT Creatinine 3.1 mg/dl (0.6-1.3); iSTAT Hemoglobin 11.6 g/dl (12.0-16.0); iSTAT Ionized Calcium 0.95 mmol/l (1.12-1.32); iSTAT Potassium 7.4 mmol/L (3.3-5.0)
--- NOTE | 2021-08-04 19:00 | XRay Report ---
XR calcaneus RT min 2V CLINICAL HISTORY: ? osteo COMPARISON: None FINDINGS: Best shown on axial projection, there is probable bony erosion of the posterior aspect of the right calcaneus. There is an overlying suspected wound with soft tissue swelling. Osteopenia is n oted. There is plantar calcaneal spurring. Extensive degenerative changes of the right tibiotalar and subtalar joints are present. There is extensive vascular calcification. IMPRESSION: 1. Probable erosion of the posterior aspect of the calcaneus with overlying wound. This is suggestive of osteomyelitis. 2. Extensive degenerative changes of the right ankle. Osteopenia. ACT 112: Negative or not required by law. Electronically signed by: Abram Pinon M.D. 08/04/2021 6:58 PM
--- NOTE | 2021-08-04 19:01 | History & Physical Report ---
Date of Service August 04, 2021 Assessment & Plan (1) Sepsis: Plan: Suspected source urine vs. osteomyelitis/discitis in back (pt complaining of spine pain, will need MRI thoracic spine w/wo contrast once more stable) vs. osteomyelitis in heel Continue vancomycin and cefepime 1L NSS bolus given in ER. Cautious fluid boluses due to ESRD on dialysis Started on Levophed in the ER - will defer ongoing management of this to ICU team Follow up blood and urine cultures (2) Septic shock: Plan: Lactate 1.9 (3) Depression: Plan: Duloxetine dose reduced by [facility] due to ESRD on dialysis, previously on 120mg, will hold during acute stage of illness. (4) Coronary artery disease: Plan: No clear history of this but mentioned in [facility] notes. She is not on any antiplatelets, BB. Will hold atorvastatin during acute stage of her sepsis. (5) Hypertension: Plan: Currently hypotensive. Will hold furosemide and midodrine in favor of Levophed as above. (6) Diabetic peripheral neuropathy: Plan: Hold gabapentin in acute stage of illness. Restart once improving from sepsis. (7) Chronic kidney disease requiring chronic dialysis: Plan: Consult nephrology. No urgent need to dialyze. Initial POC potassium is from hemolyzed sample. (8) Obesity: (9) Obstructive sleep apnea: Plan: Reportedly untreated as outpatient. Monitor for need for CPAP with hypoxia overnight. (10) Hypothyroidism: Plan: TSH with AM labs Holding oral meds during acute phase of illness. Consider restarting levothyroxine tomorrow if improving. (11) Anemia in chronic renal disease: Plan: Currently not anemic. EPO management by nephrology. Monitor CBC in AM - recent history of GI bleed, continue pantoprazole 40mg PO BID (12) Chronic respiratory failure with hypoxia: Plan: 2LPM O2 at baseline. At baseline on admission. Plan: VTE Prophylaxis - deferred to ICU, monitor Hgb closely if heparin used due to recent GI bleed Diet - NPO Disposition - admit to ICU Admission and Anticipated Discharge Date Admission Date: August 04, 2021 History of Present Illness Chief Complaint: Altered mental state Primary Care Provider: [facility] Saida Manriquez is a 71 year old female who presents to the ER from [facility] due to altered mental status, hypotension and tachycardia. Over the last few days she has been running a low grade fever around 99 degrees Fahrenheit with associated mild hypotension (notably she takes midodrine on dialysis days since July 13) with systolic BP 90s (usually 100-110) and increase in her HR 100- 110s. Yesterday she was complaining of pain throughout her whole spine. Labs were drawn this morning and one dose of Zosyn was given at 14:21 due to suspicion of infection. Unfortunately this afternoon she continued to deteriorate with HR 136 and worsening altered mental state (usual alert and orientated x3) therefore she was sent to the ER for further management. No nausea, vomiting, abdominal pain, diarrhea, upper respiratory illness (on 2LPM O2 at baseline). Last bowel movements on July 02. She produces a small amount of urine at baseline and this hasn't changed. She is not know to our system and patient only groans to questions therefore history is limited to [facility] notes and from DAVID Manriquez at [facility] who I spoke to over the phone. She was transferred to [facility] after prolonged hospitalization at [facility] from Jun 12 to July 10 due to shortness of breath and black stool. 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 She developed CHARLES on CKD stage IV and was started on dialysis on this hospitalization. Reportedly she produces a small amount of urine. She was discharged to [facility] for rehabilitation however reportedly has been a 2 person slide board transfer there and has not been walking. At baseline prior to this she could walk about 30 feet before becoming short of breath. In the ER initial POC labs suspected to be hemolyzed and not reliable however calcium gluconate 1g given for cardiac protection in addition to IV 100 meq sodium bicarbonate while awaiting labs to return. WBC 25.9, neut 21.97. Imaging suggested pericholecystic infiltration however no RUQ pain to suggest cholecystitis. CT chest concerning for disc space narrowing T10-11 possibly concerning for discitis/osteomyelitis, UA concerning for infection Allergies Allergy/AdvReac Type Severity Reaction Status Date / Time cyclobenzaprine Allergy Unknown ON MED LIST Verified 08/04/21 17:39 [From Flexeril] Home Medications Medication Instructions Recorded Confirmed Type acetaminophen 325 mg tablet 650 mg PO Q4H PRN 08/04/21 08/04/21 History (Tylenol) atorvastatin 40 mg tablet 80 mg PO QDD 08/04/21 08/04/21 History bisacodyl 10 mg rectal suppository 10 mg [place] DAILY PRN 08/04/21 08/04/21 History darbepoetin jono in polysorbat 60 60 mcg SUBCUT WK 08/04/21 08/04/21 History mcg/0.3 mL (polysorb) subcutaneous pen injector docusate sodium 100 mg capsule 100 mg PO BID 08/04/21 08/04/21 History duloxetine 30 mg capsule,delayed 30 mg PO DAILY 08/04/21 08/04/21 History release furosemide 80 mg tablet (Lasix) 80 mg PO BID 08/04/21 08/04/21 History gabapentin 100 mg capsule 200 mg PO HS 08/04/21 08/04/21 History levothyroxine 88 mcg tablet 88 mcg PO DAILYBB 08/04/21 08/04/21 History magnesium hydroxide 400 mg/5 mL 30 ml PO DAILY PRN 08/04/21 08/04/21 History oral suspension (Milk of Magnesia) midodrine 10 mg tablet 20 mg PO 3XWK 08/04/21 08/04/21 History nystatin 100,000 unit/gram topical 1 applic TOPICAL BID 08/04/21 08/04/21 History powder pantoprazole 40 mg tablet,delayed 40 mg PO BID 08/04/21 08/04/21 History release piperacillin-tazobactam 2.25 gram 2.25 g IV Q8H 08/04/21 08/04/21 History intravenous solution polyethylene glycol 3350 17 17 g PO QDL PRN 08/04/21 08/04/21 History gram/dose oral powder (Miralax) sennosides 8.6 mg-docusate sodium 1 tab-cap PO QDL PRN 08/04/21 08/04/21 History 50 mg tablet (Senokot-S) tamsulosin 0.4 mg capsule (Flomax) 0.4 mg PO HS 08/04/21 08/04/21 History tramadol 50 mg tablet 50 mg PO Q12H PRN 08/04/21 08/04/21 History vitamin B complex and vitamin C 1 cap PO DAILY 08/04/21 08/04/21 History no.20-folic acid 1 mg capsule Past Med/Surg History Medical History (Updated 08/04/21 @ 21:43 by Nigel M Begum, DO) Anemia in chronic renal disease Chronic kidney disease requiring chronic dialysis Chronic respiratory failure with hypoxia Coronary artery disease Depression Diabetic peripheral neuropathy History of CVA (cerebrovascular accident) History of gastrointestinal bleeding Hypertension Hypothyroidism Obesity Obstructive sleep apnea Social History Smoking Status: Never smoker Second Hand Exposure: No; Do You Dip or Chew Tobacco: No; Tobacco Cessation Education Requested by Patient: No Hx Alcohol Use: No Hx Substance Use: No Preferred Language: Mongolian Communication Ability: Impaired 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 Beliefs That Will Affect Care: None Current Living Situation: Family Current Living Situation Comment: pt was at a rehab facility previous lives with nephews that dont help her Other Information That Helps Us Care for You: No Feels Safe at Home: Yes Safety Concerns: Feels Safe At This Time Assistive Devices: None Review of Systems Review of Systems: Unobtainable due to cognitive status Physical Exam Constitutional: WD/WN, vitals as above Eyes: PERRL, conjunctivae normal, anicteric sclerae ENMT: Mouth: + dry oral mucous membranes Respiratory: normal respiratory effort, lungs clear to auscultation Cardiovascular: Rate/Rhythm: regular rhythm and + tachycardic Heart Sounds: no murmur Extremities: + pedal edema (trace equal bilateral); + abnormal capillary refill (4 seconds in peripheries) and no calf tenderness Gastrointestinal (Abdomen): Inspection/Auscultation: normal bowel sounds P ercussion/Palpation: abdomen soft; abdomen nontender, no guarding and abdomen not rigid Skin: + ulcer (unstageable on right heel without surrounding cellulitis) Neurologic: awake and + confused; + does not move all extremities (upper arms only) Psychiatric: Orientation: alert; + not oriented x 3 Genitourinary: no CVA tenderness Results & Data Results & Data ([facility]) Vital Signs (Past 12 Hours) Vital Signs Temp Pulse Pulse Resp BP BP Pulse Ox 08/04/21 18:28 126 H 20 95/40 L 95 08/04/21 18:00 135 H 18 90/49 L 92 08/04/21 17:53 128 H 22 75/45 L 08/04/21 17:38 84 L 08/04/21 17:34 94 08/04/21 17:30 121 H 17 93 08/04/21 17:22 38.6 C H 136 H 20 103/64 94 08/04/21 17:15 128 H 20 94 08/04/21 17:13 137 H 23 Laboratory Results Abnormal lab results 08/04/21 08/04/21 08/04/21 Range/Units 17:20 18:40 19:10 WBC 25.90 H D (4.8-10.8) K/uL POC Hgb 11.6 L (12.0-16.0) g/dl POC Hct 34 L (37-47) % MCHC 31.2 L (32-36) g/dL RDW Std Deviation 58.9 H (36.4-46.3) fL RDW Coeff of Juno 17.8 H (11.5-14.5) % MPV 11.2 H (7.4-10.4) fL Neut # (Auto) 21.97 H (1.4-6.5) K/uL [place] # (Auto) 1.78 H (0.11-0.59) K/uL Immature Gran # (Auto) 0.10 H (0.00-0.02) K/uL PT (9.0-12.0) Seconds INR (0.9-1.1) POC Sodium 131 L (135-144) mmol/L Sodium (136-145) mmol/L POC Potassium 7.4 H* (3.3-5.0) mmol/L POC Total CO2 23 L (24-31) mmol/L Anion Gap (3-11) POC Anion Gap 13.0 L (16-25) mmol/L POC BUN 29 H (7-18) mg/dl Creatinine (0.6-1.2) mg/dl POC Creatinine 3.1 H (0.6-1.3) mg/dl BUN/Creatinine Ratio (10-20) Glucose (70-99(Fasting)) mg/dl POC Glucose (other) 332 H (70-99) mg/dl Calcium (8.5-10.1) mg/dl POC Ioniz Calcium Amy 0.95 L (1.12-1.32) mmol/l Magnesium (1.7-2.4) mg/dl AST (13-39) U/L Troponin I (0-0.04) ng/ml Total Protein (6.0-8.3) gm/dl Albumin (3.4-5.0) gm/dl Albumin/Globulin Ratio (0.9-2) Procalcitonin (0-0.5) ng/ml Urine Appearance Turbid A (Clear) Urine Protein 3+ H (Negative) Urine Glucose (UA) Trace H (Negative) Urine Ketones Trace H (Negative) Urine Blood 2+ H (Negative) Ur Leukocyte Esterase 3+ H (Negative) Urine WBC (Auto) >30 H (0-5) /hpf Urine RBC (Auto) 5-10 H (0-4) /hpf U Epithel Cells (Auto) >30 H (0-5) /lpf Urine Bacteria (Auto) 4+ H (Negative) 08/04/21 08/04/21 08/04/21 Range/Units 19:21 19:21 19:28 WBC (4.8-10.8) K/uL POC Hgb (12.0-16.0) g/dl POC Hct (37-47) % MCHC (32-36) g/dL RDW Std Deviation (36.4-46.3) fL RDW Coeff of Juno (11.5-14.5) % MPV (7.4-10.4) fL Neut # (Auto) (1.4-6.5) K/uL [place] # (Auto) (0.11-0.59) K/uL Immature Gran # (Auto) (0.00-0.02) K/uL PT 14.2 H (9.0-12.0) Seconds INR 1.4 H (0.9-1.1) POC Sodium (135-144) mmol/L Sodium 135 L (136-145) mmol/L POC Potassium (3.3-5.0) mmol/L POC Total CO2 (24-31) mmol/L Anion Gap 14 H (3-11) POC Anion Gap (16-25) mmol/L POC BUN (7-18) mg/dl Creatinine 3.22 H D (0.6-1.2) mg/dl POC Creatinine (0.6-1.3) mg/dl BUN/Creatinine Ratio 6.5 L (10-20) Glucose 320 H* (70-99(Fasting)) mg/dl POC Glucose (other) (70-99) mg/dl Calcium 7.7 L (8.5-10.1) mg/dl POC Ioniz Calcium Amy (1.12-1.32) mmol/l Magnesium 1.5 L (1.7-2.4) mg/dl AST 61 H (13-39) U/L Troponin I 0.23 H* (0-0.04) ng/ml Total Protein 5.6 L (6.0-8.3) gm/dl Albumin 2.4 L (3.4-5.0) gm/dl Albumin/Globulin Ratio 0.8 L (0.9-2) Procalcitonin 8.63 H (0-0.5) ng/ml Urine Appearance (Clear) Urine Protein (Negative) Urine Glucose (UA) (Negative) Urine Ketones (Negative) Urine Blood (Negative) Ur Leukocyte Esterase (Negative) Urine WBC (Auto) (0-5) /hpf Urine RBC (Auto) (0-4) /hpf U Epithel Cells (Auto) (0-5) /lpf Urine Bacteria (Auto) (Negative) Diagnostic Findings XR chest 1V portable CLINICAL HISTORY: Sepsis. COMPARISON STUDY: No previous studies for comparison. FINDINGS: Dual lumen right internal jugular venous catheter is in place. No pneumothorax is identified although sensitivity is diminished on this supine exam. Cardiomegaly is accentuated on this study. Linear left basilar opacity favors atelectasis. Minimal linear right perihilar opacities are present. No evidence for pulmonary edema. No lobar consolidation. IMPRESSION: 1. Low lung volumes with linear bilateral opacities which favor atelectasis on this supine exam. 2. Mild enlargement of the cardiac silhouette. No evidence for pulmonary edema. 3. No pneumothorax identified. CT OF THE HEAD WITHOUT CONTRAST CLINICAL HISTORY: Altered mental status. COMPARISON STUDY: No previous studies for comparison. TECHNIQUE: Helical axial images of the head were obtained without IV contrast. Automated exposure control was utilized for the study. A dose lowering technique was utilized adhering to the principles of ALARA. FINDINGS: No acute intracranial hemorrhage, midline shift or mass effect is present. Prominence of the extra-axial spaces is likely due to atrophy. The ventricular system is unremarkable. Basal cisterns are patent. There are no extra-axial collections. There is a small focus of encephalomalacia within the anterior right occipital lobe. This favors an old infarct. There are no findings to suggest acute dural sinus thrombosis or acute territorial infarct. White matter hypodensity suggests small vessel disease. Bilateral mastoid air cells are partially opacified. Sphenoid sinus because thickening is present. No acute calvarial fracture. IMPRESSION: 1. No acute intracranial findings. 2. Moderate atrophy. 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 CT OF THE CHEST WITHOUT IV CONTRAST CLINICAL HISTORY: Altered mental status. Possible sepsis. COMPARISON STUDY: Chest radiograph performed earlier today. CT DOSE: 2533.88 mGy.cm TECHNIQUE: Axial images of the chest were obtained without IV contrast. Images were reviewed in the axial, sagittal, and coronal planes. IV contrast was not administered for this examination. Automated exposure control was utilized for the study. A dose lowering technique was utilized adhering to the principles of ALARA. FINDINGS: Right internal jugular dual lumen catheter is in place. Moderate cardiomegaly is noted. There is extensive coronary artery calcification. No pericardial effusion is noted. There is mild dilatation of the ascending aorta, measuring 4.1 cm. There is also dilatation of the central pulmonary arteries. Main pulmonary artery measures 3.7 cm in caliber. There is no pneumothorax or pleural effusion. Linear bilateral opacities reflect atelectasis. There are also mild ground glass opacities within the lungs. There is no consolidation to suggest pneumonia. Abdomen and pelvis will be reported separately. There is no thoracic lymphadenopathy. Note is made of disc space narrowing at T10-T11 with irregularity of the inferior endplate of T10 and superior endplate of T11. No paravertebral infiltration is identified IMPRESSION: 1. No consolidation to suggest pneumonia. Linear bilateral opacities consistent with atelectasis. Mild diffuse ground glass opacities are nonspecific although not highly suggestive of an infectious process. 2. Disc space narrowing at T10-T11 with adjacent endplate irregularity. This is likely degenerative. An infectious process such as discitis/osteomyelitis is considered less likely. However, if clinical suspicion for an infectious process, MRI of the thoracic spine with and without contrast is recommended . 3. Moderate cardiomegaly. Extensive coronary artery calcification. CT OF THE ABDOMEN AND PELVIS WITHOUT CONTRAST CLINICAL HISTORY: Altered mental status. Possible sepsis. COMPARISON STUDY: No previous studies for comparison. TECHNIQUE: Axial images of the abdomen and pelvis were obtained without IV contrast. Images were reviewed in the axial, sagittal, and coronal planes. Automated exposure control was utilized for the study. A dose lowering technique was utilized adhering to the principles of ALARA. FINDINGS: Please note that the chest CT will be reported separately. No pneumatosis, free air or portal venous gas is present. Evaluation of the abdomen and pelvis is suboptimal as unenhanced exam. Unenhanced images of the liver, spleen, adrenal glands and pancreas are unremarkable. There is pancreatic glandular atrophy. There is no biliary or pancreatic ductal dilatation. There may be mild pericholecystic infiltration. This could be related to motion artifact. Gallbladder is mildly distended. There is no hydronephrosis. Marked left and moderate right renal atrophy is present. There is no evidence for a bowel obstruction. The appendix is normal. Moderate amount stool within the rectum is present. No ascites is present. There is no lymphadenopathy. No acute fracture or suspicious lesion is identified within the visualized skeletal structures. There are old bilateral inferior pubic rami fractures. Moderate atherosclerotic plaque is noted within the abdominal aorta and branch vessels. IMPRESSION: 1. Mild pericholecystic infiltration. Although this could be due to motion artifact, a right upper quadrant ultrasound is recommended to exclude the possibility of acute cholecystitis. 2. No bowel obstruction. No bowel wall thickening on unenhanced exam. Moderate amount of stool within the rectum. 3. Marked left and moderate right renal atrophy. No hydronephrosis. Medications Administered ER Medications Given: NSS 500 bolus x2 Cefepime 2g IV Sodium bicarbonate 100 meq IV Calcium gluconate 1000mg IV Acetaminophen 1000mg IV ECG Indication: altered mental status Rate (beats per minute): 139 Rhythm: sinus tachycardia Findings: + PVC Comparison ECG Date: no prior available Code Status & VTE Plan Code Status DNR/DNI VTE Prophylaxis Plan VTE Prophylaxis will be ordered: No PG Care Time/CCT Total # of Minutes Spent Total Time Spent with Patient: Total time spent is greater than 50% in coordination of care (as documented) at patient's floor/unit and/or counseling patient: Coding Level of Care Code 38204 Initial Inpt Care Lvl 3 Diagnoses Sepsis A41.9 Depression F32.A Coronary artery disease I25.10 Hypertension I10 Septic shock A41.9; R65.21 Diabetic peripheral neuropathy E11.42 Chronic kidney disease requiring chronic dialysis N18.6; Z99.2 Obesity E66.9 Obstructive sleep apnea G47.33 Hypothyroidism E03.9 Anemia in chronic renal disease N18.9; D63.1 Chronic respiratory failure with hypoxia J96.11
[2021-08-04] MEDS ORDERED: PATIROMER CALCIUM SORBITEX 8.4 GM PACK PO STA (19:04)
[2021-08-04] MEDS: NOREPINEPHRINE/D5W 8 MG/508 ML BAG IV SCH (19:12)
[2021-08-04] MEDS ORDERED: INSULIN HUMAN REGULAR PER UNIT 10 UNITS in SYRINGE 9.9 ML IV ONE (19:15)
--- NOTE | 2021-08-04 19:18 | Ultrasound Report ---
US gallbladder CLINICAL HISTORY: Possible sepsis. COMPARISON STUDY: CT of the abdomen and pelvis performed earlier today. FINDINGS: No hepatic lesions are identified although sensitivity is diminished on this exam given sub optimal penetration. There is no biliary ductal dilatation. Common bile duct measures 4 mm in caliber . Pancreatic body is normal. Head and tail are partially obscured. Sonographic Cerda sign could not be assessed for in this patient. No gallstones were identified. No definite gallbladder wall thickeni ng. Internal echoes within the gallbladder probably artifactual. There is no right hydronephrosis. IMPRESSION: 1. No gallstones or biliary ductal dilatation. 2. Technically difficult exam but no convincing evidence for acute cholecystitis. ACT 112: Negative or not required by law. Electronically signed by: Abram Pinon M.D. 08/04/2021 7:17 PM
[2021-08-04 19:36] LABS: Appearance Urine Turbid (Clear); Bacteria Urine Automated 4+ (Negative); Bilirubin Urine Negative (Negative); Blood Urine 2+ (Negative); Color Urine Dark Yellow; Epithelial Cell Urine Auto >30 /lpf (0-5); Glucose Urine UA Trace (Negative); Ketones Urine Trace (Negative); Leukocyte Esterase Urine 3+ (Negative); Nitrite Urine Negative (Negative); Protein Urine 3+ (Negative); Specific Gravity Urine 1.016 (1.000-1.030); Urobilinogen Urine Negative (Negative); WBC Urine Automated >30 /hpf (0-5)
[2021-08-04 19:39] LABS: INR 1.4 (0.9-1.1); Partial Thromboplastin Ratio 1.1; Prothrombin Time 14.2 Seconds (9.0-12.0)
[2021-08-04 19:54] LABS: Albumin Globulin Ratio 0.8 (0.9-2); Albumin Level 2.4 gm/dl (3.4-5.0); BUN Creatinine Ratio 6.5 (10-20); Bilirubin,Total 0.6 mg/dl (0.2-1.0); Calcium 7.7 mg/dl (8.5-10.1); Creatinine Clr Calc Pharmacy 17.9 ml/min; Est GFR (African American) 16.1 ml/min; Est GFR (Non-African American) 13.9 ml/min; Globulin 3.2 gm/dl (2.5-4.0); Magnesium 1.5 mg/dl (1.7-2.4); Potassium 3.8 mmol/L (3.5-5.1); Total Protein 5.6 gm/dl (6.0-8.3); Troponin I 0.23 ng/ml (0-0.04)
--- NOTE | 2021-08-04 20:21 | Critical Care Consultation ---
Date of Consultation August 04, 2021 Assessment & Plan (1) Admitted to intensive care unit: Reason Critically Ill: 71-year-old female with severe sepsis and septic shock secondary to multiple possible underlying sources including osteomyelitis of the RIGHT calcaneus, urinary tract infection, and possible discitis/osteomyelitis of the thoracic spine. Patient hemodynamically unstable and requiring pressors status post crystalloid resuscitation in the complicated end-stage renal disease patient on hemodialysis. NEURO - * CAM ICU: Initially positive * Altered mental status: * Likely secondary to acuity of disease state in the setting of severe sepsis. * CT head demonstrated no acute findings. * Patient has improved cognitively with breaking of her fever and improvement blood pressure. CARDIAC/VASCULAR - * Hypotension: * Secondary to sepsis syndrome. * Received 1 L crystalloid in the emergency department. Agree with judicious crystalloid administration in the hemodialysis dependent patient. * Requiring Levophed at this time. * Will attempt to wean down pressors as tolerated. * Will add IV fluids for now. * EKG: Sinus tachycardia at [address] or T wave changes noted. QTc 447 ms. * Monitor on telemetry. RESPIRATORY - * Chronic hypoxic respiratory failure, COPD, AUDI: * Saturating well on 2 L nasal cannula at this time. * Address other respiratory pathologies as they arise. Doing well from a pulmonary perspective at this point. GI/NUTRITION - * Would cautiously advance diet and the patient currently requiring vasopressors. * Prophylaxis: Famotidine RENAL/LYTES - * End-stage renal disease on hemodialysis (Thursday//Thursday): * Order placed for nephrology. * Appreciate their ongoing guidance. * Patient not required emergent hemodialysis at this time. * Electrolytes appropriate. * IVF: Normosol at 80 mL's per hour - * UTI: * Patient apparently makes minimal amounts of urine. * Observe urine was significantly purulent with confirming urinalysis. * Please see ID. * Garcia in place - Strict I&Os. ENDO - * IDDM: * BSGs per unit protocol. ISS --> gtt per unit policy. * Hypothyroidism: * Continue current outpatient PO Rx HEME - * Anemia of chronic disease (ESRD) * Monitor closely for s/s bleeding as she has recently been admitted w/ bleeding AVM of the bowels?? ID - * Severe sepsis w/ septic shock: * Multifactorial, however concerning purulent urine output. May likely be acute sepsis source. * Concerning findings of osteomyelitis of the RIGHT calcaneus. Likely more chronic, however. * ??Discitis/Osteomyelitis of the thoracic spine. Patient c/o back pain on presentation. Febrile. Unable to complete great exam given her cognitive status. Will hold on MRI at this time until we see how patient responds to current therapies. I am uncertain if the patient would make the best surgical spine candidate either way. * Bacteremia: * Gram POSITIVE cocci in clusters x2 on blood cultures obtained in the outpatient setting today. * While this may suggest osteomyelitis as the primary source of current septicemia, we should certainly keep CLABSI on the differential as well as the patient is with RIGHT IJ permacath. * Serology pending for MRSA differentiation. * Currently covered appropriately w/ Zosyn and Vancomycin. * Antibiotics dosing by pharmacy appreciated. LINES/IV ACCESS - * PIVs x2 * RIGHT IJ Permacath * LEFT Femoral CVL * Garcia DVT PROPHYLAXIS - * Hold on chemoprophylaxis with recent GIB * SCDs CODE STATUS - * Patient w/ POLST form stating DNR/DNI status. * Had lengthy discussion with patient's sister, Romina Boswell ([phone]) regarding code status/patient wishes. She does confirm the patient to be DNR/DNI. She is uncertain of patient's wishes for pressor use, but is comfortable continuing with them at this time. She is understanding and recognizes her sister's ongoing medical difficulties and possible lethality of current infectious state. She is agreeable to continuing with current care with frequent reassessment for progression/regression with ongoing goals of care to reflect patient's responsiveness to current treatment. I have personally spent 65 minutes of critical care time in the direct management of this patient. This is a life/limb threatening event. This includes time spent evaluating patient, direct bedside care, chart review, placing orders, interpretation of diagnostic studies, discussion with consultants, patient, and family members, as well as other required patient management activities. This time is exclusive of all separately billable procedures, and teaching time and separate from and in addition to any other critical care service time. Thank you for allowing us to participate in the care of this patient. Please refer to my attending physician's documentation for any further recommendations. (2) Severe sepsis: (3) AMS (altered mental status): (4) Hypoxia: (5) Chronic kidney disease requiring chronic dialysis: (6) Septic shock: (7) Acute osteomyelitis of right calcaneus: (8) Discitis of thoracic region: (9) UTI (urinary tract infection): History of Present Illness History of Present Illness Patient is a 71-year-old female with a significant past medical history of diabetes, end-stage renal disease requiring hemodialysis on Tuesdays, , and Saturdays, coronary artery disease, hypertension, peripheral neuropathy, obstructive sleep apnea, hypothyroidism, anemia of chronic disease, COPD, and c hronic respiratory failure with hypoxia. Patient was noted to have a fever for approximately 2 days. Patient is currently recovering at [facility] after an extended hospitalization stay at [facility] with multiple complications from COVID-19 pneumonia including end-stage renal disease with need for hemodialysis. Patient was also noted to have AVM bleeding as well. Per records, it appears as though the patient is typically awake and oriented at baseline. Unfortunately, the patient has had altered mental status for the last several hours. She had outpatient labs drawn today which suggested increasing leukocytosis. Given the patient's worsening altered mental status and development of hypotension, the patient was directed to the ER for ongoing management. In the emergency department, the patient was noted to be febrile and tachycardic. She had associated hypotension and received a liter of crystalloid. Unfortunately, the patient required initiation of vasopressors in the form of Levophed. Patient with poor peripheral access. She had a central line placed in the LEFT groin. Imaging studies in the emergency department suggest osteomyelitis of the RIGHT calcaneus. Additionally, patient noted to have incidental finding of possible discitis/osteomyelitis of the thoracic spine. Garcia catheter output is purulent. Patient received cefepime and vancomycin in the emergency department. Patient additionally received Zosyn as well. Upon my evaluation in the emergency department, the patient is intermittently awake, but confused. She is unable to participate in history of present illness. Upon arrival in the ICU, however, the patient is now awake and alert. She is confused at times, but pleasantly conversant and offers some degree of history, particularly her complaints. She does complain of some pain in her buttocks as well as LEFT groin area. Otherwise, she offers no complaints at this time. Sisters at bedside and provides some additional history as above. Allergies Allergy/AdvReac Type Severity Reaction Status Date / Time cyclobenzaprine Allergy Unknown ON MED LIST Verified 08/04/21 17:39 [From Flexeril] Home Medications Medication Instructions Recorded Confirmed Type acetaminophen 325 mg tablet 650 mg PO Q4H PRN 08/04/21 08/04/21 History (Tylenol) atorvastatin 40 mg tablet 80 mg PO QDD 08/04/21 08/04/21 History bisacodyl 10 mg rectal suppository 10 mg IA DAILY PRN 08/04/21 08/04/21 History darbepoetin jono in polysorbat 60 60 mcg SUBCUT WK 08/04/21 08/04/21 History mcg/0.3 mL (polysorb) subcutaneous pen injector docusate sodium 100 mg capsule 100 mg PO BID 08/04/21 08/04/21 History duloxetine 30 mg capsule,delayed 30 mg PO DAILY 08/04/21 08/04/21 History release furosemide 80 mg tablet (Lasix) 80 mg PO BID 08/04/21 08/04/21 History gabapentin 100 mg capsule 200 mg PO HS 08/04/21 08/04/21 History levothyroxine 88 mcg tablet 88 mcg PO DAILYBB 08/04/21 08/04/21 History magnesium hydroxide 400 mg/5 mL 30 ml PO DAILY PRN 08/04/21 08/04/21 History oral suspension (Milk of Magnesia) midodrine 10 mg tablet 20 mg PO 3XWK 08/04/21 08/04/21 History nystatin 100,000 unit/gram topical 1 applic TOPICAL BID 08/04/21 08/04/21 History powder pantoprazole 40 mg tablet,delayed 40 mg PO BID 08/04/21 08/04/21 History release piperacillin-tazobactam 2.25 gram 2.25 g IV Q8H 08/04/21 08/04/21 History intravenous solution polyethylene glycol 3350 17 17 g PO QDL PRN 08/04/21 08/04/21 History gram/dose oral powder (Miralax) sennosides 8.6 mg-docusate sodium 1 tab-cap PO QDL PRN 08/04/21 08/04/21 History 50 mg tablet (Senokot-S) tamsulosin 0.4 mg capsule (Flomax) 0.4 mg PO HS 08/04/21 08/04/21 History tramadol 50 mg tablet 50 mg PO Q12H PRN 08/04/21 08/04/21 History vitamin B complex and vitamin C 1 cap PO DAILY 08/04/21 08/04/21 History no.20-folic acid 1 mg capsule Patient History Medical History Anemia in chronic renal disease Chronic kidney disease requiring chronic dialysis Chronic respiratory failure with hypoxia Coronary artery disease Depression Diabetic peripheral neuropathy History of CVA (cerebrovascular accident) History of gastrointestinal bleeding Hypertension Hypothyroidism Obesity Obstructive sleep apnea Social History Smoking Status: Never smoker Second Hand Exposure: No; Do You Dip or Chew Tobacco: No; Tobacco Cessation Education Requested by Patient: No Hx Alcohol Use: No Hx Substance Use: No Preferred Language: Ecuadorean Communication Ability: Impaired Slimer Required: No Beliefs That Will Affect Care: None Current Living Situation: Family Current Living Situation Comment: pt was at a rehab facility previous lives with nephews that dont help her Other Information That Helps Us Care for You: No Feels Safe at Home: Yes Safety Concerns: Feels Safe At This Time Assistive Devices: None Review of Systems Review of Systems: Unobtainable due to cognitive status Physical Exam Physical Exam: VITAL SIGNS - Vital signs and nursing notes were reviewed. GENERAL - 71-year-old female appearing her stated age who is in moderate distress. Confused. SKIN - Wounds noted to the RIGHT foot. HEAD - NC/AT. EYES - PERRL with EOMI bilaterally. Sclera anicteric. EARS - No deformities of external structures noted on gross examination bilaterally. NOSE - Midline and without cyanosis. No epistaxis or purulent drainage noted. MOUTH/OROPHARYNX - Without perioral cyanosis. Buccal mucosa pink and dry. NECK - Neck with FROM. Supple to palpation. No lymphadenopathy noted. No nuchal rigidity. LUNGS - Chest wall symmetric without accessory muscle use, intercostals retractions, or central cyanosis. Normal vesicular breath sounds CTA B/L. No wheezes, rales, or rhonchi appreciated. CARDIAC - RRR with S1/S2. No murmur, rubs, or gallops appreciated. ABDOMEN - Abdominal contour obese without pulsations or visible masses. BS normoactive all four quadrants. No tenderness, palpable masses, hepatosplenomegaly, or ascites noted. EXTREMITIES - No clubbing or peripheral cyanosis. No pretibial edema present. Poor peripheral pulses. NEUROLOGIC - No focal neurological deficits noted on exam. Limited secondary to AMS. Results & Data Results & Data ([facility]) Vital Signs (Past 12 Hours) Vital Signs Temp Pulse Pulse Resp BP BP Pulse Ox 08/04/21 20:18 117 H 22 106/57 L 95 08/04/21 20:00 116 H 31 H 88/50 L 97 08/04/21 19:56 118 H 21 94/57 L 96 08/04/21 19:43 119 H 24 87/48 L 96 08/04/21 19:30 119 H 26 H 85/57 L 97 08/04/21 19:29 120 H 24 79/51 L 97 08/04/21 19:00 39 C H 119 H 24 95 08/04/21 18:28 126 H 20 95/40 L 95 08/04/21 18:00 135 H 18 90/49 L 92 08/04/21 17:53 128 H 22 75/45 L 08/04/21 17:38 84 L 08/04/21 17:34 94 08/04/21 17:30 121 H 17 93 08/04/21 17:22 38.6 C H 136 H 20 103/64 94 08/04/21 17:15 128 H 20 94 08/04/21 17:13 137 H 23 Coding Level of Care Code Critical Care 1st 30-74 mins Diagnoses Admitted to intensive care unit Z78.9 Severe sepsis A41.9; R65.20 AMS (altered mental status) R41.82 Altered mental status type: unspecified Hypoxia R09.02 Chronic kidney disease requiring chronic dialysis N18.6; Z99.2 Septic shock A41.9; R65.21 Acute osteomyelitis of right calcaneus M86.171 Discitis of thoracic region M46.44 UTI (urinary tract infection) N39.0 Time Spent (min) 65 (1) AMS (altered mental status) Altered mental status type: unspecified Qualified Code(s): R41.82 - Altered mental status, unspecified
[2021-08-04] MEDS ORDERED: ICU PROTOCOL FOR HYPERGLYCEMIA PRN (21:09)
[2021-08-04] MEDS ORDERED: POLYETHYLENE (MIRALAX) 17 GM PACK PO PRN (21:15)
[2021-08-04] MEDS ORDERED: bisacodyL 10 MG SUPP PR PRN (21:15)
[2021-08-04] MEDS ORDERED: MAGNESIUM HYDROXIDE SUSP 30 ML UDC PO PRN (21:15)
[2021-08-04] MEDS ORDERED: DOCUSATE SODIUM/SENNA 50/8.6MG TAB PO PRN (21:15)
[2021-08-04] MEDS ORDERED: PHARMACY GLYCEMIC MGMT CONSULT PRN (21:26)
[2021-08-04] MEDS: NORMOSOL-R 1,000 ML IV SCH (21:47)
[2021-08-04] MEDS: FAMOTIDINE 20 MG in SYRINGE 3 ML IV SCH (21:59)
[2021-08-04] MEDS ORDERED: INSULIN HUMAN REGULAR PER UNIT 8 UNITS in SYRINGE 7.92 ML IV ONE (22:00)
[2021-08-05] MEDS: INSULIN ASPART PER UNIT SC SCH ×6 (00:16→20:00)
[2021-08-05] MEDS ORDERED: PIPERACILL/TAZOBAC CONSULT ACTIVE PRN (01:13)
[2021-08-05] MEDS ORDERED: PIPERACILLIN/TAZOBACTAM 2.25 GM in DEXTROSE 5% 100 ML IV SCH (01:15)
[2021-08-05] MEDS: PIPERACILLIN/TAZOBACTAM 3.375 GM in DEXTROSE 5% 100 ML IV SCH ×2 (02:13→13:34)
[2021-08-05] MEDS: LEVOTHYROXINE SODIUM 88 MCG TABLET PO SCH (04:37)
[2021-08-05 05:22] LABS: Basophils # (auto) 0.03 K/uL (0-0.2); Basophils % (auto) 0.1 %; Hematocrit (blood only) 34.1 % (37-47); Hemoglobin 10.8 g/dL (12.0-16.0); Immature Granulocytes # (auto) 0.05 K/uL (0.00-0.02); Immature Granulocytes % (auto) 0.2 %; Lymphocytes # (auto) 2.05 K/uL (1.2-3.4); Lymphocytes % (auto) 10.1 %; Mean Corpuscular Hemoglobin 28.5 pg (25-34); Mean Corpuscular Hgb Conc 31.7 g/dL (32-36); Mean Platelet Volume 10.3 fL (7.4-10.4); Monocytes % (auto) 5.9 %; Neutrophils # (auto) 16.89 K/uL (1.4-6.5); Neutrophils % (auto) 83.7 %; Platelet Count 221 K/uL (130-400); RDW Coefficient of Variation 18.1 % (11.5-14.5); RDW Standard Deviation 59.6 fL (36.4-46.3); Red Blood Count 3.79 M/uL (4.2-5.4); White Blood Count 20.22 K/uL (4.8-10.8)
[2021-08-05 05:44] LABS: Albumin Globulin Ratio 0.7 (0.9-2); Albumin Level 2.3 gm/dl (3.4-5.0); BUN Creatinine Ratio 7.9 (10-20); Bilirubin,Total 0.6 mg/dl (0.2-1.0); Calcium 7.8 mg/dl (8.5-10.1); Creatinine Clr Calc Pharmacy 18.1 ml/min; Est GFR (African American) 16.3 ml/min; Est GFR (Non-African American) 14.1 ml/min; Globulin 3.3 gm/dl (2.5-4.0); Magnesium 1.6 mg/dl (1.7-2.4); Phosphorus 3.7 mg/dl (2.5-4.9); Potassium 3.4 mmol/L (3.5-5.1); Total Protein 5.6 gm/dl (6.0-8.3)
[2021-08-05 05:45] LABS: Troponin I 0.31 ng/ml (0-0.04)
[2021-08-05 06:44] LABS: Estimated Average Glucose 114 mg/dl; Hemoglobin A1C 5.6 % (4.5-5.6)
[2021-08-05] MEDS: DULoxetine HCL 30 MG CAP PO SCH (08:41)
[2021-08-05] MEDS: DOCUSATE SODIUM 100 MG CAP PO SCH ×2 (08:41→19:58)
[2021-08-05] MEDS: FAMOTIDINE 20 MG in SYRINGE 3 ML IV SCH (08:42)
[2021-08-05] MEDS: PANTOprazole 40 MG TAB PO SCH (08:42)
[2021-08-05] MEDS ORDERED: FUROSEMIDE 80 MG TAB PO SCH (09:00)
--- NOTE | 2021-08-05 09:20 | Critical Care Progress Note ---
Date of Service August 05, 2021 Assessment & Plan (1) Admitted to intensive care unit: Plan: Reason Critically Ill: 71-year-old female with severe sepsis and septic shock secondary to multiple possible underlying sources including osteomyelitis of the RIGHT calcaneus, urinary tract infection, and possible discitis/osteomyelitis of the thoracic spine. Patient hemodynamically unstable and requiring pressors status post crystalloid resuscitation in the complicated end-stage renal disease patient on hemodialysis. NEURO - * CAM ICU: Initially positive * Altered mental status: Improved * CT head demonstrated no acute findings. * Patient has improved cognitively with breaking of her fever and improvement blood pressure. CARDIAC/VASCULAR - * Hypotension: * Secondary to sepsis syndrome. * Received 1 L crystalloid in the emergency department. Agree with judicious crystalloid administration in the hemodialysis dependent patient. * Requiring Levophed at this time. * Will attempt to wean down pressors as tolerated. * Will add IV fluids for now. * EKG: Sinus tachycardia at [address] or T wave changes noted. QTc 447 ms. * Monitor on telemetry. RESPIRATORY - * Chronic hypoxic respiratory failure, COPD, AUDI: Improved GI/NUTRITION - * Would cautiously advance diet and the patient currently requiring vasopressors. * Prophylaxis: Famotidine RENAL/LYTES - * End-stage renal disease on hemodialysis (Thursday//Thursday): * Order placed for nephrology. * Appreciate their ongoing guidance. * Patient not required emergent hemodialysis at this time. * Electrolytes appropriate. * IVF: Normosol at 80 mL's per hour, will D/C when taking PO * Give 2 grams magnesium - * UTI: * Patient apparently makes minimal amounts of urine. * Observe urine was significantly purulent with confirming urinalysis. * Please see ID. * Garcia in place - Strict I&Os. ENDO - * IDDM: * BSGs per unit protocol. ISS --> gtt per unit policy. * Hypothyroidism: * Continue current outpatient PO Rx HEME - * Anemia of chronic disease (ESRD) * Monitor closely for s/s bleeding as she has recently been admitted w/ bleeding AVM of the bowels?? ID - * Severe sepsis w/ septic shock: * Multifactorial, however concerning purulent urine output. May likely be acute sepsis source. * Concerning findings of osteomyelitis of the RIGHT calcaneus. Likely more chronic, however. * ??Discitis/Osteomyelitis of the thoracic spine. Patient c/o back pain on presentation. Febrile. Unable to complete great exam given her cognitive status. Will hold on MRI at this time until we see how patient responds to current therapies. I am uncertain if the patient would make the best surgical spine candidate either way. * Bacteremia: * Gram POSITIVE cocci in clusters x2 on blood cultures obtained in the outpatient setting today. * While this may suggest osteomyelitis as the primary source of current sept icemia, we should certainly keep CLABSI on the differential as well as the patient is with RIGHT IJ permacath. * Serology pending for MRSA differentiation. * Currently covered appropriately w/ Zosyn and Vancomycin until urine speciates * Antibiotics dosing by pharmacy appreciated. * Will reculture from perm cath LINES/IV ACCESS - * PIVs x2 * RIGHT IJ Permacath * LEFT Femoral CVL * Garcia DVT PROPHYLAXIS - * Hold on chemoprophylaxis with recent GIB * SCDs CODE STATUS - * Patient w/ POLST form stating DNR/DNI status. * Patient's sister, Romina Boswell ([phone]) * DNR/DNI: agreeable to continuing with current care with frequent reassessment for progression/regression with ongoing goals of care to reflect patient's responsiveness to current treatment. Discussed on multidisciplinary rounds I have personally spent 45 minutes of critical care time in the direct management of this patient. This is a life/limb threatening event. This includes time spent evaluating patient, direct bedside care, chart review, placing orders, interpretation of diagnostic studies, discussion with consultants, patient, and family members, as well as other required patient management activities. This time is exclusive of all separately billable procedures, and teaching time and separate from and in addition to any other critical care service time. (2) Severe sepsis: (3) AMS (altered mental status): (4) Hypoxia: (5) Chronic kidney disease requiring chronic dialysis: (6) Septic shock: (7) Acute osteomyelitis of right calcaneus: (8) Discitis of thoracic region: (9) UTI (urinary tract infection): Admission and Anticipated Discharge Date Admission Date: August 04, 2021 Subjective Feels improved. Requesting ice water. No chest pain. Review of Systems Review of Systems: as Per HPI Physical Exam Physical Exam: General: Alert. nontoxic. Skin: Warm, dry, Head: Atraumatic Ears, nose, mouth and throat: airway patent Cardiovascular: Normal peripheral perfusion Respiratory: no respiratory distress Gastrointestinal: Non distended Musculoskeletal: No deformity Results & Data Results & Data ([facility]) Vital Signs (Past 12 Hours) Vital Signs Temp Pulse Pulse Resp BP BP Pulse Ox 08/05/21 07:30 36.2 C L 83 20 110/63 99 08/05/21 06:15 90 20 76/48 L 99 08/05/21 06:00 36.7 C 88 19 83/50 L 100 08/05/21 05:45 90 18 84/51 L 100 08/05/21 05:30 90 17 90/54 L 100 08/05/21 05:15 36.7 C 91 H 19 96/55 L 100 08/05/21 05:01 36.7 C 90 20 81/62 L 100 08/05/21 05:00 89 15 100 08/05/21 04:46 95 H 16 90/53 L 100 08/05/21 04:45 95 H 18 100 08/05/21 04:30 102 H 17 119/68 100 08/05/21 04:26 101 H 21 122/73 100 08/05/21 04:15 88 19 95/60 L 97 08/05/21 04:00 87 21 92/53 L 96 08/05/21 03:45 36.7 C 88 21 97/56 L 96 08/05/21 03:30 92 H 20 94/57 L 95 08/05/21 03:15 92 H 21 91/54 L 96 08/05/21 03:00 36.6 C 91 H 22 103/59 L 96 08/05/21 02:45 93 H 21 103/56 L 96 08/05/21 02:30 92 H 21 94/58 L 96 08/05/21 02:15 100 H 19 103/68 97 08/05/21 02:00 36.7 C 97 H 25 H 108/61 96 08/05/21 01:45 97 H 23 109/62 96 08/05/21 01:30 95 H 26 H 105/62 95 08/05/21 01:15 36.7 C 97 H 22 99/65 L 96 08/05/21 01:00 36.7 C 98 H 22 94/54 L 96 08/05/21 00:45 36.7 C 98 H 23 106/62 97 04/04/22 00:30 36.3 C L 98 H 21 102/60 97 08/05/21 00:15 97 H 21 105/65 98 08/05/21 00:00 36.3 C L 98 H 22 116/69 99 08/04/21 23:50 98 H 08/04/21 23:45 94 H 23 115/66 98 08/04/21 23:30 35.7 C L 93 H 22 110/64 99 08/04/21 23:15 35.7 C L 96 H 21 121/71 99 08/04/21 23:00 35.6 C L 98 H 18 110/68 98 08/04/21 22:45 35.7 C L 115 H 22 123/68 98 08/04/21 22:30 35.7 C L 101 H 14 122/70 98 08/04/21 22:15 35.9 C L 102 H 23 112/64 98 08/04/21 22:00 36.0 C L 100 H 16 93/57 L 99 08/04/21 21:45 36.1 C L 102 H 21 98/60 L 97 08/04/21 21:36 115 H 20 106/57 L 96 08/04/21 21:30 36.3 C L 108 H 17 88/50 L 97 Critical Care Results & Data Vital Signs (Past 12 Hours) Vital Signs Temp Pulse Pulse Resp BP BP Pulse Ox 08/05/21 07:30 36.2 C L 83 20 110/63 99 08/05/21 06:15 90 20 76/48 L 99 08/05/21 06:00 36.7 C 88 19 83/50 L 100 08/05/21 05:45 90 18 84/51 L 100 08/05/21 05:30 90 17 90/54 L 100 08/05/21 05:15 36.7 C 91 H 19 96/55 L 100 08/05/21 05:01 36.7 C 90 20 81/62 L 100 08/05/21 05:00 89 15 100 08/05/21 04:46 95 H 16 90/53 L 100 08/05/21 04:45 95 H 18 100 08/05/21 04:30 102 H 17 119/68 100 08/05/21 04:26 101 H 21 122/73 100 08/05/21 04:15 88 19 95/60 L 97 08/05/21 04:00 87 21 92/53 L 96 08/05/21 03:45 36.7 C 88 21 97/56 L 96 08/05/21 03:30 92 H 20 94/57 L 95 08/05/21 03:15 92 H 21 91/54 L 96 08/05/21 03:00 36.6 C 91 H 22 103/59 L 96 08/05/21 02:45 93 H 21 103/56 L 96 08/05/21 02:30 92 H 21 94/58 L 96 08/05/21 02:15 100 H 19 103/68 97 08/05/21 02:00 36.7 C 97 H 25 H 108/61 96 08/05/21 01:45 97 H 23 109/62 96 08/05/21 01:30 95 H 26 H 105/62 95 08/05/21 01:15 36.7 C 97 H 22 99/65 L 96 08/05/21 01:00 36.7 C 98 H 22 94/54 L 96 08/05/21 00:45 36.7 C 98 H 23 106/62 97 08/05/21 00:30 36.3 C L 98 H 21 102/60 97 08/05/21 00:15 97 H 21 105/65 98 08/05/21 00:00 36.3 C L 98 H 22 116/69 99 08/04/21 23:50 98 H 08/04/21 23:45 94 H 23 115/66 98 08/04/21 23:30 35.7 C L 93 H 22 110/64 99 08/04/21 23:15 35.7 C L 96 H 21 121/71 99 08/04/21 23:00 35.6 C L 98 H 18 110/68 98 08/04/21 22:45 35.7 C L 115 H 22 123/68 98 08/04/21 22:30 35.7 C L 101 H 14 122/70 98 08/04/21 22:15 35.9 C L 102 H 23 112/64 98 08/04/21 22:00 36.0 C L 100 H 16 93/57 L 99 08/04/21 21:45 36.1 C L 102 H 21 98/60 L 97 08/04/21 21:36 115 H 20 106/57 L 96 08/04/21 21:30 36.3 C L 108 H 17 88/50 L 97 Lab & Micro Results (Past 24 Hours) RBC 3.79 M/uL (4.2-5.4) L 08/05/21 WBC 20.22 K/uL (4.8-10.8) H 08/05/21 Hgb 10.8 g/dL (12.0-16.0) L 08/05/21 Hct 34.1 % (37-47) L 08/05/21 MCV 90.0 fL (80-100) 08/05/21 MCH 28.5 pg (25-34) 08/05/21 MCHC 31.7 g/dL (32-36) L 08/05/21 RDW Standard Deviation 59.6 fL (36.4-46.3) H 08/05/21 RDW Coefficient of Variation 18.1 % (11.5-14.5) H 08/05/21 Plt Count 221 K/uL (130-400) 08/05/21 MPV 10.3 fL (7.4-10.4) 08/05/21 Neutrophils (%) (Auto) 83.7 % 08/05/21 Lymphocytes (%) (Auto) 10.1 % 08/05/21 Monocytes # (Auto) 1.20 K/uL (0.11-0.59) H 08/05/21 Eosinophils # (Auto) 0.00 K/uL (0-0.5) 08/05/21 Immature Granulocyte % (Auto) 0.2 % 08/05/21 Neutrophils # (Auto) 16.89 K/uL (1.4-6.5) H 08/05/21 Lymphocytes # (Auto) 2.05 K/uL (1.2-3.4) 08/05/21 Monocytes # (Auto) 1.20 K/uL (0.11-0.59) H 08/05/21 Eosinophils # (Auto) 0.00 K/uL (0-0.5) 08/05/21 Basophils # (Auto) 0.03 K/uL (0-0.2) 08/05/21 Immature Granulocyte # (Auto) 0.05 K/uL (0.00-0.02) H 08/05/21 Red Blood Cell Morphology Unremarkable 08/04/21 Na 138 mmol/L (136-145) 08/05/21 K 3.4 mmol/L (3.5-5.1) L 08/05/21 Cl 102 mmol/L (98-107) 08/05/21 CO2 24 mmol/L (21-32) 08/05/21 Anion Gap 12 (3-11) H 08/05/21 BUN 25 mg/dl (6-23) H 08/05/21 Creatinine 3.18 mg/dl (0.6-1.2) H 08/05/21 Estimated GFR ( Amer) 16.3 ml/min 08/05/21 Estimated GFR (Non-Af Amer) 14.1 ml/min 08/05/21 BUN/Creatinine Ratio 7.9 (10-20) L 08/05/21 Glu 225 mg/dl (70-99(Fasting)) H 08/05/21 Ca 7.8 mg/dl (8.5-10.1) L 08/05/21 Phosphorus Level 3.7 mg/dl (2.5-4.9) 08/05/21 Total Bilirubin 0.6 mg/dl (0.2-1.0) 08/05/21 AST 50 U/L (13-39) H 08/05/21 ALT 19 U/L (7-52) 08/05/21 Alkaline Phosphatase 68 U/L (34-104) 08/05/21 TP 5.6 gm/dl (6.0-8.3) L 08/05/21 Albumin 2.3 gm/dl (3.4-5.0) L 08/05/21 Globulin 3.3 gm/dl (2.5-4.0) 08/05/21 Albumin/Globulin Ratio 0.7 (0.9-2) L 08/05/21 Mg 1.6 mg/dl (1.7-2.4) L 08/05/21 04:58 08/05/21 Calcium Level 7.8 mg/dl (8.5-10.1) L 08/05/21 04:58 08/05/21 Prothromb Time International Ratio 1.4 (0.9-1.1) H 08/04/21 19:21 08/04/21 Microbiology 08/04/21 17:18 Aerobic Blood Culture - Preliminary Blood Gram positive cocci clusters 08/04/21 17:20 Aerobic Blood Culture - Preliminary Blood Gram positive cocci clusters Diagnostic Findings (Past 24 Hours) Chest X-Ray 08/04/21 17:13 XR chest 1V portable CLINICAL HISTORY: Sepsis. COMPARISON STUDY: No previous studies for comparison. FINDINGS: Dual lumen right internal jugular venous catheter is in place. No pneumothorax is identified although sensitivity is diminished on this supine exam. Cardiomegaly is accentuated on this study. Linear left basilar opacity favors atelectasis. Minimal linear right perihilar opacities are present. No evidence for pulmonary edema. No lobar consolidation. IMPRESSION: 1. Low lung volumes with linear bilateral opacities which favor atelectasis on this supine exam. 2. Mild enlargement of the cardiac silhouette. No evidence for pulmonary edema. 3. No pneumothorax identified. ACT 112: Negative or not required by law. Electronically signed by: Abram Pinon M.D. 08/04/2021 5:41 PM Abdomen/Pelvis CT 08/04/21 17:15 CT OF THE ABDOMEN AND PELVIS WITHOUT CONTRAST CLINICAL HISTORY: Altered mental status. Possible sepsis. COMPARISON STUDY: No previous studies for comparison. TECHNIQUE: Axial images of the abdomen and pelvis were obtained without IV contrast. Images were reviewed in the axial, sagittal, and coronal planes. Automated exposure control was utilized for the study. A dose lowering technique was utilized adhering to the principles of ALARA. FINDINGS: Please note that the chest CT will be reported separately. No pneumatosis, free air or portal venous gas is present. Evaluation of the abdomen and pelvis is suboptimal as unenhanced exam. Unenhanced images of the liver, spleen, adrenal glands and pancreas are unremarkable. There is pancreatic glandular atrophy. There is no biliary or pancreatic ductal dilatation. There may be mild pericholecystic infiltration. This could be related to motion artifact. Gallbladder is mildly distended. There is no hydronephrosis. Marked left and moderate right renal atrophy is present. There is no evidence for a bowel obstruction. The appendix is normal. Moderate amount stool within the rectum is present. No ascites is present. There is no lymphadenopathy. No acute fracture or suspicious lesion is identified within the visualized skeletal structures. There are old bilateral inferior pubic rami fractures. Moderate atherosclerotic plaque is noted within the abdominal aorta and branch vessels. IMPRESSION: 1. Mild pericholecystic infiltration. Although this could be due to motion artifact, a right upper quadrant ultrasound is recommended to exclude the possibility of acute cholecystitis. 2. No bowel obstruction. No bowel wall thickening on unenhanced exam. Moderate amount of stool within the rectum. 3. Marked left and moderate right renal atrophy. No hydronephrosis. ACT 112: Negative or not required by law. Electronically signed by: Abram Pinon M.D. 08/04/2021 6:[address] 08/04/21 17:15 CT OF THE CHEST WITHOUT IV CONTRAST CLINICAL HISTORY: Altered mental status. Possible sepsis. COMPARISON STUDY: Chest radiograph performed earlier today. CT DOSE: 2533.88 mGy.cm TECHNIQUE: Axial images of the chest were obtained without IV contrast. Images were reviewed in the axial, sagittal, and coronal planes. IV contrast was not administered for this examination. Automated exposure control was utilized for the study. A dose lowering technique was utilized adhering to the principles of ALARA. FINDINGS: Right internal jugular dual lumen catheter is in place. Moderate cardiomegaly is noted. There is extensive coronary artery calcification. No pericardial effusion is noted. There is mild dilatation of the ascending aorta, measuring 4.1 cm. There is also dilatation of the central pulmonary arteries. M ain pulmonary artery measures 3.7 cm in caliber. There is no pneumothorax or pleural effusion. Linear bilateral opacities reflect atelectasis. There are also mild ground glass opacities within the lungs. There is no consolidation to suggest pneumonia. Abdomen and pelvis will be reported separately. There is no thoracic lymphadenopathy. Note is made of disc space narrowing at T10-T11 with irregularity of the inferior endplate of T10 and superior endplate of T11. No paravertebral infiltration is identified IMPRESSION: 1. No consolidation to suggest pneumonia. Linear bilateral opacities consistent with atelectasis. Mild diffuse ground glass opacities are nonspecific although not highly suggestive of an infectious process. 2. Disc space narrowing at T10-T11 with adjacent endplate irregularity. This is likely degenerative. An infectious process such as discitis/osteomyelitis is considered less likely. However, if clinical suspicion for an infectious process, MRI of the thoracic spine with and without contrast is recommended . 3. Moderate cardiomegaly. Extensive coronary artery calcification. ACT 112: Negative or not required by law. Electronically signed by: Abram Pinon M.D. 08/04/2021 6:[address] 08/04/21 17:15 CT OF THE HEAD WITHOUT CONTRAST CLINICAL HISTORY: Altered mental status. COMPARISON STUDY: No previous studies for comparison. TECHNIQUE: Helical axial images of the head were obtained without IV contrast. Automated exposure control was utilized for the study. A dose lowering technique was utilized adhering to the principles of ALARA. FINDINGS: No acute intracranial hemorrhage, midline shift or mass effect is present. Prominence of the extra-axial spaces is likely due to atrophy. The ventricular system is unremarkable. Basal cisterns are patent. There are no extra-axial collections. There is a small focus of encephalomalacia within the anterior right occipital lobe. This favors an old infarct. There are no findings to suggest acute dural sinus thrombosis or acute territorial infarct. White matter hypodensity suggests small vessel disease. Bilateral mastoid air cells are partially opacified. Sphenoid sinus because thickening is present. No acute calvarial fracture. IMPRESSION: 1. No acute intracranial findings. 2. Moderate atrophy. 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 ACT 112: Negative or not required by law. Electronically signed by: Abram Pinon M.D. 08/04/2021 5:57 PM Calcaneus X-Ray 08/04/21 18:23 XR calcaneus RT min 2V CLINICAL HISTORY: ? osteo COMPARISON: None FINDINGS: Best shown on axial projection, there is probable bony erosion of the posterior aspect of the right calcaneus. There is an overlying suspected wound with soft tissue swelling. Osteopenia is noted. There is plantar calcaneal spurring. Extensive degenerative changes of the right tibiotalar and subtalar joints are present. There is extensive vascular calcification. IMPRESSION: 1. Probable erosion of the posterior aspect of the calcaneus with overlying wound. This is suggestive of osteomyelitis. 2. Extensive degenerative changes of the right ankle. Osteopenia. ACT 112: Negative or not required by law. Electronically signed by: Abram Pinon M.D. 08/04/2021 6:58 PM Gallbladder Ultrasound 08/04/21 18:23 US gallbladder CLINICAL HISTORY: Possible sepsis. COMPARISON STUDY: CT of the abdomen and pelvis performed earlier today. FINDINGS: No hepatic lesions are identified although sensitivity is diminished on this exam given suboptimal penetration. There is no biliary ductal dilatation. Common bile duct measures 4 mm in caliber. Pancreatic body is normal. Head and tail are partially obscured. Sonographic Cerda sign could not be assessed for in this patient. No gallstones were identified. No definite g allbladder wall thickening. Internal echoes within the gallbladder probably artifactual. There is no right hydronephrosis. IMPRESSION: 1. No gallstones or biliary ductal dilatation. 2. Technically difficult exam but no convincing evidence for acute cholecystitis. ACT 112: Negative or not required by law. Electronically signed by: Abram Pinon M.D. 08/04/2021 7:17 PM I & O Totals 24 Hours 08/04/21 08/05/21 08/06/21 06:59 06:59 06:59 Intake Total 1585.093 / 1585.093 Output Total 300 / 300 Balance 1285.093 / 1285.093 Cumulative 08/04/21 16:59 thru 08/05/21 06:52 Intake Total 1585.093 Output Total 300 Balance 1285.093 RT Ventilator Mngmt (Last Documented) Ventilator Ordered Settings Respiratory Rate 20 08/05/21 07:30 Ventilator - PT Measurements Respiratory Rate 20 Coding Level of Care Code Critical Care 1st 30-74 mins Diagnoses Admitted to intensive care unit Z78.9 Severe sepsis A41.9; R65.20 AMS (altered mental status) R41.82 Altered mental status type: unspecified Hypoxia R09.02 Chronic kidney disease requiring chronic dialysis N18.6; Z99.2 Septic shock A41.9; R65.21 Acute osteomyelitis of right calcaneus M86.171 Discitis of thoracic region M46.44 UTI (urinary tract infection) N39.0 (1) AMS (altered mental status) Altered mental status type: unspecified Qualified Code(s): R41.82 - Altered mental status, unspecified
[2021-08-05] MEDS: NORMOSOL-R 1,000 ML IV SCH ×2 (10:08→17:52)
[2021-08-05] MEDS: MAGNESIUM SULFATE / D5W 1 GM/100 ML BAG IV SCH ×2 (10:52→12:28)
[2021-08-05] MEDS ORDERED: POTASSIUM CHLORIDE / WTR 20 MEQ/100 ML PLCT IV ONE (11:00)
[2021-08-05 12:20] LABS: iSTAT Creatinine 3.1 mg/dl (0.6-1.3); iSTAT Hemoglobin 11.6 g/dl (12.0-16.0); iSTAT Ionized Calcium 0.95 mmol/l (1.12-1.32); iSTAT Potassium 7.4 mmol/L (3.3-5.0)
--- NOTE | 2021-08-05 12:43 | Consultation Report ---
NEPHROLOGY CONSULTATION NOTE DATE OF SERVICE: 08/05/2021 REASON FOR CONSULTATION: Dialysis patient admitted with sepsis related with bacteremia. HISTORY OF PRESENT ILLNESS: The patient is a 71-year-old female who was sent over to the hospital [facility] due to altered mental status, hypotension and tachycardia. Over the last few days, she has been running some fever as well as low blood pressure. She is a relative ly new start of dialysis with acute renal failure in the setting of multiple acute illnesses on backg round CKD. Her last dialysis was on Thursday at the rehab hospital through a dialysis catheter. She had a prolonged hospitalization prior to rehab stay at [facility] for about a month due to multiple issues including congestive heart failure, renal failure, GI bleeding. At th is point, the patient does not make a lot of urine. Since being admitted, she is being covered with b road-spectrum antibiotics. Cultures have been done and blood culture is already growing gram-positiv e cocci in clusters. She also had a gallbladder ultrasound as well as abdomen and pelvis CT chest sc an. She is requiring low-dose Levophed at this time and also getting IV fluid at 80 mL per hour as s he is still n.p.o. However, her vital signs seems to be improving somewhat and she is no longer hypo tensive or tachycardic. She is requiring about 2 liters of oxygen. She has a Garcia catheter. ALLERGIES: FLEXERIL. MEDICATIONS: Home medication list was reviewed in detail and as per the reconciliation list. Of spe cial interest, she does take Lasix 80 twice daily as well as midodrine for blood pressure support. PAST MEDICAL AND SURGICAL HISTORY: Includes chronic kidney disease secondary to diabetes as well as underlying vascular diseases. 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 SOCIAL HISTORY: Never smoked. She is currently living with her family, but at this very moment, she is at the rehab hospital. REVIEW OF SYSTEMS: It is hard to obtain as she is still quite sleepy and groggy, but she denies gloriai ng any acute major complaints at this time. Denies having any major shortness of breath or pain. Sh romie was complaining of some degree of hard stool causing pain during bowel movement. Otherwise, 12 sys tems reviewed and negative. PHYSICAL EXAMINATION: GENERAL: Elderly white female who is quite sick at this time and is on pressors and she is in ICU. VITAL SIGNS: Blood pressure is 110/63, temperature 36.2, oxygen saturation 99% on 2 liters nasal can nula. HEENT: Mucous membrane is moist. NECK: Supple. No jugular venous distention. CHEST: Bilaterally clear to auscultation. Limited quality of the exam secondary to lack of inspirato ry effort. CARDIOVASCULAR: S1 and S2 tachycardic, regular. No murmur heard. ABDOMEN: Soft, nontender. EXTREMITIES: Show no edema. ACCESS: She does have a dialysis catheter on the right side of the chest. LABORATORY TEST: Blood culture is positive for gram-positive cocci in clusters. WBC count 20,000, h emoglobin 10.8, platelet count 221. Potassium 3.4, BUN 25, creatinine 3.18. Procalcitonin 18.23. A ll the imagings were reviewed in detail. CT chest and chest x-ray did not show any overt pulmonary e vane or congestive heart failure. There is some possibility of diskitis, some diffuse ground-glass o pacity bilaterally in the lung. Abdomen and pelvis CT scan showed mild pericholecystic infiltration. Gallbladder ultrasound already done and there was not any major abnormal finding. Calcaneus x-ray is suggestive of osteomyelitis. ASSESSMENT AND PLAN: A 71-year-old female who presented to the hospital from the rehabilitation [facility] where she was getting rehabilitation following a prolonged hospitalization. I have been consult ed for dialysis management. She is a new start of dialysis within the last month with acute renal fa ilure in the setting of extensive medical problems and progression of her underlying CKD IV. End-stage renal disease: She does not have any evidence of overt fluid overload or congestive heart failure. Her electrolytes are reasonable and she does not need emergent dialysis today. However, I am quite concerned that her blood culture is growing gram-positive cocci in clusters as well as findi ngs suggestive of osteomyelitis in her calcaneus as well as possible diskitis. This goes very strong ly in favor of some kind of Staphylococcus infection. If she does indeed have Staphylococcus aureus, we do need to remove the dialysis catheter and give her line holiday for a couple of days. The dusty ent is still requiring pressors and she does not have any really abnormal electrolytes, so given the situation, I would like to do her dialysis tomorrow. If her blood culture does indeed grow Staphyloco ccus aureus, we will have to remove the dialysis catheter after the dialysis tomorrow and then give h er a prolonged line holiday. We will also need to repeat blood cultures on a daily basis for the nex t few days. Consider infectious disease consult given complicated infection situation here to help obinna kahn the choice and the duration of the antibiotics. Job ID: [id number]
--- NOTE | 2021-08-05 12:50 | Pharmacy Report ---
Pharmacy Glycemic Short Note 2 - Date of Service August 05, 2021 - Glycemic Short BSG Results (Last 24 hours): 08/04/21 08/04/21 08/04/21 17:20 18:31 18:40 Glucose Cancelled Cancelled POC Glucose POC Glucose (other) 332 H 08/04/21 08/04/21 08/04/21 18:40 19:21 21:40 Glucose 320 H* POC Glucose POC Glucose (other) 332 H 346 H 08/04/21 08/05/21 08/05/21 23:09 00:12 04:30 Glucose POC Glucose 222 H POC Glucose (other) 297 H 288 H 08/05/21 08/05/21 08/05/21 04:58 08:29 11:57 Glucose 225 H POC Glucose POC Glucose (other) 178 H 128 H OUTPATIENT ANTIDIABETIC REGIMEN: * N/A * A1c = 5.6% 08/05/21 (however interpret with caution due to shorter RBC lifespan in ESRD) ASSESSMENT: * Patient admitted with septic shock, MSSA bacteremia, possible CLABSI vs UTI vs discitis, calcaneal osteomyelitis * No prior dx of DM. Pt likely experiencing stress induced hyperglycemia. Broad-spectrum abx ordered and patient is requiring escalating doses of norepi. * HD is planned for tomorrow * Plan to utilize SQ rapid acting insulin alone at this time. No basal insulin will be provided due to increased risks of hypoglycemia in the setting of stress induced hyperglycemia. Novolog doses will be provided Q 4 hrs and will provide some element of "basal" insulin. PLAN FOR INPATIENT GLYCEMIC CONTROL: * Check BSGs using iSTAT while on pressors * Basal insulin * None at this time * Bolus insulin * NovoLog per scale Q 4 hrs:
--- NOTE | 2021-08-05 13:55 | Pharmacy Report ---
Pharmacy Vanc AUC Short Note - Date of Service August 05, 2021 - Assessment & Plan Assessment * 71 year old F receiving VANCOMYCIN + ZOSYN for treatment of septic shock possibly due to calcaneal osteomyelitis +/- CLABSI +/- UTI +/- discitis. * Pertinent microbiologic data includes: MSSA in BLCXs per [facility] testing on outpt BLCXs; BLCX's x 4 positive from 08/04, 2 of which are growing "staph species", urine cx pending, repeat BLCXs ordered today and one cx ordered thru permacath. Calcaneus x-ray read as possible osteo. Imaging of thoracic spine not yet obtained. No echo has yet be obtained. * Day # 2 of antimicrobial therapy * HD is planned tomorrow. Possible plans to remove permacath following tomorrow's HD session Plan Vancomycin * AUC/TSERING is the preferred PK/PD target for vancomycin however pt is not a candidate for this method of dosing due to ESRD / HD * Rather will dose vancomycin based upon random levels drawn in the AM prior to HD treatments * Random level 18.5 this AM following 1750mg loading dose last evening. Will give small supplemental dose of 250mg x 1 today and recheck random level with AM labs tomorrow. Of note, pt does produce some urine. * Consider deescalation to nafcillin or cefazolin in near future based upon further culture data Zosyn * Given multiple potential sources of infxn, reasonable to continue for now. Urine cx is still pending, no cultures collected from heel ulcer * BMI < 35, eCrCl < 20 in setting of HD, continue 3.375gm EI Q 12 hrs Pharmacy will continue to follow and will adjust dose/frequency as necessary. Thank you.
[2021-08-05] MEDS ORDERED: VANCOMYCIN HCL 250 MG in DEXTROSE 5% 100 ML IV ONE (14:15)
[2021-08-05] MEDS ORDERED: HYDROmorphone INJ 0.5 MG/0.5 ML SYR IV STA (16:03)
[2021-08-05] MEDS: ATORVASTATIN 40 MG TAB PO SCH (16:32)
[2021-08-05] MEDS ORDERED: OPTIRAY 320 100ml IV ONE (16:34)
--- NOTE | 2021-08-05 16:36 | Hospitalist Progress Note ---
Date of Service August 05, 2021 Assessment & Plan (1) Septic shock: Plan: 2nd to GPC clusters. Source - HD catheter vs SBE vs diskitis/osteomyelitis of foot and/or thoracic spine vs UTI vs combination of factors. Await identification of GPC. Repeat blood cx's pending. Continue zosyn. Continue vancomycin. Will need echo to r/o valvular lesions. Continue levophed to maintain MAP >65. Defer to ICU attending. Would check a random cortisol level. (2) Bacteremia: Plan: 2nd GPC in clusters. Await identification. see #1 above. (3) Discitis of thoracic region: Plan: Suspected based on CT chest findings. May need MRI t-spine. Too ill to pursue at this time. Treat any pain as needed. (4) Acute osteomyelitis of right calcaneus: Plan: Suspected based on plain films. Wound care saw in consult, recs appreciated. Ultimately will need debridement. Continue IV zosyn/vanco. (5) Acute metabolic encephalopathy: Plan: 2nd to sepsis/septic shock. Supportive care. (6) UTI (urinary tract infection): Plan: ua suspicious for such. urine cx pending. Continue IV antibiotic therapy. (7) Depression: Plan: Recently on 120mg of cymbalta. Dose reduced while patient was at [facility]. Continue 30mg daily. (8) Coronary artery disease: Plan: History uncertain. Mild troponin elevation c/w myocardial demand ischemia rather than ACS. (9) Hypertension: Plan: All anti-hypertensives on hold due to #1. (10) Diabetic peripheral neuropathy: Plan: Hold gabapentin in light of acute metabolic encephalopathy. Cont cymbalta. (11) Chronic kidney disease requiring chronic dialysis: Plan: Date of HD initiation uncertain. Sometime in the last few months by report while hospitalized in [place]. [facility] consulted for HD needs. See discussion in #1 above re: HD catheter. (12) Obesity: Plan: BMI 30 (13) Obstructive sleep apnea: Plan: History of. Not on CPAP by report. (14) Hypothyroidism: Plan: TSH wnl. Continue levothyroxine 88mcg daily. (15) Anemia in chronic renal disease: Plan: Hb 10.8 this am and stable. CBC am. (16) Chronic respiratory failure with hypoxia: Plan: 2L NC 02 at baseline. (17) Hypomagnesemia: Plan: Replace IV. repeat level am tomorrow. (18) Abdominal pain: Plan: CT a/p with ?pericholecystic fluid. RUQ u/s without findings to suggest acute cholecystitis. Lower abd pain may be due to constipation (moderate stool in rectum on CT). Dulcolax suppox x 1. (19) Coagulopathy: Plan: INR 1.4. No evidence of DIC. Liver disease? vitamin K deficiency? other? repeat INR am. consider vit K supplementation. (20) DVT prophylaxis: Plan: holding chemical means due to #21. (21) History of GI bleed: Plan: details uncertain. remains on H2 noel. (22) Candidiasis of mouth and esophagus: Plan: nystatin 5cc qid swish/spit. (23) Hyperglycemia: Plan: Hba1c 5.6%, but may be spurious due to anemia. Significant hyperglycemia. Cont ICU glycemic protocol. Plan: called both contacts listed in chart - no answer at each number. left message for Romina Boswell, primary contact. secondary contact - no identifying information thus did not leave message for that person. Admission and Anticipated Discharge Date Admission Date: August 04, 2021 Subjective events of overnight noted remains on levophed for hypotension she was sleepy but did awake enough to answer questions pt was moaning at times throughout the visit she c/o lower abdominal pain she did confirm she is from the [place] area and that she has 1 son denied cp, back pain, dyspnea Review of Systems Review of Systems: gen - weakness cv - no orthopnea, no cp pulm - no dyspnea GI - no emesis Physical Exam Physical Exam: gen - chronically ill-appearing, sickly, sleepy, mild confusion mouth - candidal plaques buccal mucosa neck - no JVD heart - RRR, s1 s2 lungs - decreased BS bases, otherwise CTA b/l abd - obese, soft, tender suprapubic region and LLQ to palpation, no peritoneal signs skin - pallor, no generalized rash ext - pulses 1+ b/l at best; I did not examine her wounds on her feet; no edema vascular - right IJ tunneled HD catheter clean; left femoral CVC Results & Data Results & Data ([facility]) Vital Signs (Past 12 Hours) Vital Signs Temp Pulse Pulse Resp BP BP Pulse Ox 08/05/21 12:39 77/44 L 08/05/21 12:00 37.0 C 92 H 17 75/46 L 95 08/05/21 10:10 94/54 L 08/05/21 10:00 37.0 C 93 H 22 91/49 L 95 08/05/21 09:34 81/44 L 08/05/21 09:00 36.8 C 100 H 21 88/53 L 94 08/05/21 08:00 36.4 C L 92 H 18 111/66 99 08/05/21 07:30 36.2 C L 83 20 110/63 99 08/05/21 07:00 36.2 C L 81 17 110/63 100 08/05/21 06:15 90 20 76/48 L 99 08/05/21 06:00 36.7 C 88 19 83/50 L 100 08/05/21 05:45 90 18 84/51 L 100 08/05/21 05:30 90 17 90/54 L 100 08/05/21 05:15 36.7 C 91 H 19 96/55 L 100 08/05/21 05:01 36.7 C 90 20 81/62 L 100 08/05/21 05:00 89 15 100 08/05/21 04:46 95 H 16 90/53 L 100 08/05/21 04:45 95 H 18 100 Laboratory Results Laboratory Results - last 24 hr 08/04/21 08/04/21 08/04/21 17:20 17:20 17:20 WBC 25.90 H D RBC 4.26 Hgb 12.0 POC Hgb Hct 38.5 POC Hct MCV 90.4 MCH 28.2 MCHC 31.2 L RDW Std Deviation 58.9 H RDW Coeff of Juno 17.8 H Plt Count 244 MPV 11.2 H Immature Gran % (Auto) 0.4 Neut % (Auto) 84.8 Lymph % (Auto) 7.7 Cuming % (Auto) 6.9 Eos % (Auto) 0.0 Baso % (Auto) 0.2 Neut # (Auto) 21.97 H Lymph # (Auto) 2.00 Cuming # (Auto) 1.78 H Eos # (Auto) 0.00 Baso # (Auto) 0.05 Immature Gran # (Auto) 0.10 H RBC Morphology Unremarkable PT Cancelled INR Cancelled APTT Cancelled PTT Ratio Cancelled POC Sodium Sodium Cancelled POC Potassium Potassium Cancelled POC Chloride Chloride Cancelled Carbon Dioxide Cancelled POC Total CO2 Anion Gap Cancelled POC Anion Gap POC BUN BUN Cancelled Creatinine Cancelled POC Creatinine Est Cr Clr Drug Dosing Cancelled Est GFR ( Amer) Cancelled Est GFR (Non-Af Amer) Cancelled BUN/Creatinine Ratio Cancelled Glucose Cancelled POC Glucose POC Glucose (other) Estimat Average Glucose Hemoglobin A1c Lactate Calcium Cancelled POC Ioniz Calcium Amy Phosphorus Magnesium Cancelled Total Bilirubin Cancelled AST Cancelled ALT Cancelled Alkaline Phosphatase Cancelled Troponin I Cancelled Total Protein Cancelled Albumin Cancelled Globulin Cancelled Albumin/Globulin Ratio Cancelled Procalcitonin TSH Urine Color Urine Appearance Urine pH Ur Specific [place] Urine Protein Urine Glucose (UA) Urine Ketones Urine Blood Urine Nitrite Urine Bilirubin Urine Urobilinogen Ur Leukocyte Esterase Urine WBC (Auto) Urine RBC (Auto) U Hyaline Cast (Auto) U Epithel Cells (Auto) Urine Bacteria (Auto) Urine Yeast Nasal Screen MRSA (PCR) Random Vancomycin SARS-CoV-2 (PCR) Influenza Type A (PCR) Influenza Type B (PCR) RSV (RT-PCR) 08/04/21 08/04/21 08/04/21 17:20 17:20 17:30 WBC RBC Hgb POC Hgb Hct POC Hct MCV MCH MCHC RDW Std Deviation RDW Coeff of Juno Plt Count MPV Immature Gran % (Auto) Neut % (Auto) Lymph % (Auto) Cuming % (Auto) Eos % (Auto) Baso % (Auto) Neut # (Auto) Lymph # (Auto) Cuming # (Auto) Eos # (Auto) Baso # (Auto) Immature Gran # (Auto) RBC Morphology PT INR APTT PTT Ratio POC Sodium Sodium POC Potassium Potassium POC Chloride Chloride Carbon Dioxide POC Total CO2 Anion Gap POC Anion Gap POC BUN BUN Creatinine POC Creatinine Est Cr Clr Drug Dosing Est GFR ( Amer) Est GFR (Non-Af Amer) BUN/Creatinine Ratio Glucose POC Glucose POC Glucose (other) Estimat Average Glucose Hemoglobin A1c Lactate 1.9 Calcium POC Ioniz Calcium Amy Phosphorus Magnesium Total Bilirubin AST ALT Alkaline Phosphatase Troponin I Total Protein Albumin Globulin Albumin/Globulin Ratio Procalcitonin Cancelled TSH Urine Color Urine Appearance Urine pH Ur Specific [place] Urine Protein Urine Glucose (UA) Urine Ketones Urine Blood Urine Nitrite Urine Bilirubin Urine Urobilinogen Ur Leukocyte Esterase Urine WBC (Auto) Urine RBC (Auto) U Hyaline Cast (Auto) U Epithel Cells (Auto) Urine Bacteria (Auto) Urine Yeast Nasal Screen MRSA (PCR) Random Vancomycin SARS-CoV-2 (PCR) NEGATIVE Influenza Type A (PCR) Negative Influenza Type B (PCR) Negative RSV (RT-PCR) Negative 08/04/21 08/04/21 08/04/21 18:31 18:31 18:31 WBC RBC Hgb POC Hgb Hct POC Hct MCV MCH MCHC RDW Std Deviation RDW Coeff of Juno Plt Count MPV Immature Gran % (Auto) Neut % (Auto) Lymph % (Auto) Cuming % (Auto) Eos % (Auto) Baso % (Auto) Neut # (Auto) Lymph # (Auto) Cuming # (Auto) Eos # (Auto) Baso # (Auto) Immature Gran # (Auto) RBC Morphology PT Cancelled INR Cancelled APTT Cancelled PTT Ratio Cancelled POC Sodium Sodium Cancelled POC Potassium Potassium Cancelled POC Chloride Chloride Cancelled Carbon Dioxide Cancelled POC Total CO2 Anion Gap Cancelled POC Anion Gap POC BUN BUN Cancelled Creatinine Cancelled POC Creatinine Est Cr Clr Drug Dosing Cancelled Est GFR ( Amer) Cancelled Est GFR (Non-Af Amer) Cancelled BUN/Creatinine Ratio Cancelled Glucose Cancelled POC Glucose POC Glucose (other) Estimat Average Glucose Hemoglobin A1c Lactate Calcium Cancelled POC Ioniz Calcium Amy Phosphorus Magnesium Cancelled Total Bilirubin Cancelled AST Cancelled ALT Cancelled Alkaline Phosphatase Cancelled Troponin I Cancelled Total Protein Cancelled Albumin Cancelled Globulin Cancelled Albumin/Globulin Ratio Cancelled Procalcitonin Cancelled TSH Urine Color Urine Appearance Urine pH Ur Specific [place] Urine Protein Urine Glucose (UA) Urine Ketones Urine Blood Urine Nitrite Urine Bilirubin Urine Urobilinogen Ur Leukocyte Esterase Urine WBC (Auto) Urine RBC (Auto) U Hyaline Cast (Auto) U Epithel Cells (Auto) Urine Bacteria (Auto) Urine Yeast Nasal Screen MRSA (PCR) Random Vancomycin SARS-CoV-2 (PCR) Influenza Type A (PCR) Influenza Type B (PCR) RSV (RT-PCR) 08/04/21 08/04/21 08/04/21 18:40 18:40 19:10 WBC RBC Hgb POC Hgb 11.6 L 11.6 L Hct POC Hct 34 L 34 L MCV MCH MCHC RDW Std Deviation RDW Coeff of Juno Plt Count MPV Immature Gran % (Auto) Neut % (Auto) Lymph % (Auto) Cuming % (Auto) Eos % (Auto) Baso % (Auto) Neut # (Auto) Lymph # (Auto) Cuming # (Auto) Eos # (Auto) Baso # (Auto) Immature Gran # (Auto) RBC Morphology PT INR APTT PTT Ratio POC Sodium 131 L 131 L Sodium POC Potassium 7.4 H* 7.4 H* Potassium POC Chloride 103 103 Chloride Carbon Dioxide POC Total CO2 23 L 23 L Anion Gap POC Anion Gap 13.0 L 13.0 L POC BUN 29 H 29 H BUN Creatinine POC Creatinine 3.1 H 3.1 H Est Cr Clr Drug Dosing Est GFR ( Amer) Est GFR (Non-Af Amer) BUN/Creatinine Ratio Glucose POC Glucose POC Glucose (other) 332 H 332 H Estimat Average Glucose Hemoglobin A1c Lactate Calcium POC Ioniz Calcium Amy 0.95 L 0.95 L Phosphorus Magnesium Total Bilirubin AST ALT Alkaline Phosphatase Troponin I Total Protein Albumin Globulin Albumin/Globulin Ratio Procalcitonin TSH Urine Color Dark Yellow Urine Appearance Turbid A Urine pH 5.0 Ur Specific [place] 1.016 Urine Protein 3+ H Urine Glucose (UA) Trace H Urine Ketones Trace H Urine Blood 2+ H Urine Nitrite Negative Urine Bilirubin Negative Urine Urobilinogen Negative Ur Leukocyte Esterase 3+ H Urine WBC (Auto) >30 H Urine RBC (Auto) 5-10 H U Hyaline Cast (Auto) 1-5 U Epithel Cells (Auto) >30 H Urine Bacteria (Auto) 4+ H Urine Yeast Not Reportable Nasal Screen MRSA (PCR) Random Vancomycin SARS-CoV-2 (PCR) Influenza Type A (PCR) Influenza Type B (PCR) RSV (RT-PCR) 08/04/21 08/04/21 08/04/21 19:21 19:21 19:28 WBC RBC Hgb POC Hgb Hct POC Hct MCV MCH MCHC RDW Std Deviation RDW Coeff of Juno Plt Count MPV Immature Gran % (Auto) Neut % (Auto) Lymph % (Auto) Cuming % (Auto) Eos % (Auto) Baso % (Auto) Neut # (Auto) Lymph # (Auto) Cuming # (Auto) Eos # (Auto) Baso # (Auto) Immature Gran # (Auto) RBC Morphology PT 14.2 H INR 1.4 H APTT 31.0 PTT Ratio 1.1 POC Sodium Sodium 135 L POC Potassium Potassium 3.8 POC Chloride Chloride 100 Carbon Dioxide 21 POC Total CO2 Anion Gap 14 H POC Anion Gap POC BUN BUN 21 Creatinine 3.22 H D POC Creatinine Est Cr Clr Drug Dosing 17.9 Est GFR ( Amer) 16.1 Est GFR (Non-Af Amer) 13.9 BUN/Creatinine Ratio 6.5 L Glucose 320 H* POC Glucose POC Glucose (other) Estimat Average Glucose Hemoglobin A1c Lactate Calcium 7.7 L POC Ioniz Calcium Amy Phosphorus Magnesium 1.5 L Total Bilirubin 0.6 AST 61 H ALT 22 Alkaline Phosphatase 74 Troponin I 0.23 H* Total Protein 5.6 L Albumin 2.4 L Globulin 3.2 Albumin/Globulin Ratio 0.8 L Procalcitonin 8.63 H TSH Urine Color Urine Appearance Urine pH Ur Specific [place] Urine Protein Urine Glucose (UA) Urine Ketones Urine Blood Urine Nitrite Urine Bilirubin Urine Urobilinogen Ur Leukocyte Esterase Urine WBC (Auto) Urine RBC (Auto) U Hyaline Cast (Auto) U Epithel Cells (Auto) Urine Bacteria (Auto) Urine Yeast Nasal Screen MRSA (PCR) Random Vancomycin SARS-CoV-2 (PCR) Influenza Type A (PCR) Influenza Type B (PCR) RSV (RT-PCR) 08/04/21 08/04/21 08/04/21 21:00 21:40 23:09 WBC RBC Hgb POC Hgb Hct POC Hct MCV MCH MCHC RDW Std Deviation RDW Coeff of Juno Plt Count MPV Immature Gran % (Auto) Neut % (Auto) Lymph % (Auto) Cuming % (Auto) Eos % (Auto) Baso % (Auto) Neut # (Auto) Lymph # (Auto) Cuming # (Auto) Eos # (Auto) Baso # (Auto) Immature Gran # (Auto) RBC Morphology PT INR APTT PTT Ratio POC Sodium Sodium POC Potassium Potassium POC Chloride Chloride Carbon Dioxide POC Total CO2 Anion Gap POC Anion Gap POC BUN BUN Creatinine POC Creatinine Est Cr Clr Drug Dosing Est GFR ( Amer) Est GFR (Non-Af Amer) BUN/Creatinine Ratio Glucose POC Glucose POC Glucose (other) 346 H 297 H Estimat Average Glucose Hemoglobin A1c Lactate Calcium POC Ioniz Calcium Amy Phosphorus Magnesium Total Bilirubin AST ALT Alkaline Phosphatase Troponin I Total Protein Albumin Globulin Albumin/Globulin Ratio Procalcitonin TSH Urine Color Urine Appearance Urine pH Ur Specific [place] Urine Protein Urine Glucose (UA) Urine Ketones Urine Blood Urine Nitrite Urine Bilirubin Urine Urobilinogen Ur Leukocyte Esterase Urine WBC (Auto) Urine RBC (Auto) U Hyaline Cast (Auto) U Epithel Cells (Auto) Urine Bacteria (Auto) Urine Yeast Nasal Screen MRSA (PCR) Negative Random Vancomycin SARS-CoV-2 (PCR) Influenza Type A (PCR) Influenza Type B (PCR) RSV (RT-PCR) 08/05/21 08/05/21 08/05/21 00:12 04:30 04:58 WBC 20.22 H RBC 3.79 L Hgb 10.8 L POC Hgb Hct 34.1 L POC Hct MCV 90.0 MCH 28.5 MCHC 31.7 L RDW Std Deviation 59.6 H RDW Coeff of Juno 18.1 H Plt Count 221 MPV 10.3 Immature Gran % (Auto) 0.2 Neut % (Auto) 83.7 Lymph % (Auto) 10.1 Cuming % (Auto) 5.9 Eos % (Auto) 0.0 Baso % (Auto) 0.1 Neut # (Auto) 16.89 H Lymph # (Auto) 2.05 Cuming # (Auto) 1.20 H Eos # (Auto) 0.00 Baso # (Auto) 0.03 Immature Gran # (Auto) 0.05 H RBC Morphology PT INR APTT PTT Ratio POC Sodium Sodium POC Potassium Potassium POC Chloride Chloride Carbon Dioxide POC Total CO2 Anion Gap POC Anion Gap POC BUN BUN Creatinine POC Creatinine Est Cr Clr Drug Dosing Est GFR ( Amer) Est GFR (Non-Af Amer) BUN/Creatinine Ratio Glucose POC Glucose 222 H POC Glucose (other) 288 H Estimat Average Glucose Hemoglobin A1c Lactate Calcium POC Ioniz Calcium Amy Phosphorus Magnesium Total Bilirubin AST ALT Alkaline Phosphatase Troponin I Total Protein Albumin Globulin Albumin/Globulin Ratio Procalcitonin TSH Urine Color Urine Appearance Urine pH Ur Specific [place] Urine Protein Urine Glucose (UA) Urine Ketones Urine Blood Urine Nitrite Urine Bilirubin Urine Urobilinogen Ur Leukocyte Esterase Urine WBC (Auto) Urine RBC (Auto) U Hyaline Cast (Auto) U Epithel Cells (Auto) Urine Bacteria (Auto) Urine Yeast Nasal Screen MRSA (PCR) Random Vancomycin SARS-CoV-2 (PCR) Influenza Type A (PCR) Influenza Type B (PCR) RSV (RT-PCR) 08/05/21 08/05/21 08/05/21 04:58 04:58 04:58 WBC RBC Hgb POC Hgb Hct POC Hct MCV MCH MCHC RDW Std Deviation RDW Coeff of Juno Plt Count MPV Immature Gran % (Auto) Neut % (Auto) Lymph % (Auto) Cuming % (Auto) Eos % (Auto) Baso % (Auto) Neut # (Auto) Lymph # (Auto) Cuming # (Auto) Eos # (Auto) Baso # (Auto) Immature Gran # (Auto) RBC Morphology PT INR APTT PTT Ratio POC Sodium Sodium 138 POC Potassium Potassium 3.4 L POC Chloride Chloride 102 Carbon Dioxide 24 POC Total CO2 Anion Gap 12 H POC Anion Gap POC BUN BUN 25 H Creatinine 3.18 H POC Creatinine Est Cr Clr Drug Dosing 18.1 Est GFR ( Amer) 16.3 Est GFR (Non-Af Amer) 14.1 BUN/Creatinine Ratio 7.9 L Glucose 225 H POC Glucose POC Glucose (other) Estimat Average Glucose 114 Hemoglobin A1c 5.6 Lactate Calcium 7.8 L POC Ioniz Calcium Amy Phosphorus 3.7 Magnesium 1.6 L Total Bilirubin 0.6 AST 50 H ALT 19 Alkaline Phosphatase 68 Troponin I 0.31 H* Total Protein 5.6 L Albumin 2.3 L Globulin 3.3 Albumin/Globulin Ratio 0.7 L Procalcitonin TSH 0.996 Urine Color Urine Appearance Urine pH Ur Specific [place] Urine Protein Urine Glucose (UA) Urine Ketones Urine Blood Urine Nitrite Urine Bilirubin Urine Urobilinogen Ur Leukocyte Esterase Urine WBC (Auto) Urine RBC (Auto) U Hyaline Cast (Auto) U Epithel Cells (Auto) Urine Bacteria (Auto) Urine Yeast Nasal Screen MRSA (PCR) Random Vancomycin SARS-CoV-2 (PCR) Influenza Type A (PCR) Influenza Type B (PCR) RSV (RT-PCR) 08/05/21 08/05/21 08/05/21 04:58 04:58 08:29 WBC RBC Hgb POC Hgb Hct POC Hct MCV MCH MCHC RDW Std Deviation RDW Coeff of Juno Plt Count MPV Immature Gran % (Auto) Neut % (Auto) Lymph % (Auto) Cuming % (Auto) Eos % (Auto) Baso % (Auto) Neut # (Auto) Lymph # (Auto) Cuming # (Auto) Eos # (Auto) Baso # (Auto) Immature Gran # (Auto) RBC Morphology PT INR APTT PTT Ratio POC Sodium Sodium POC Potassium Potassium POC Chloride Chloride Carbon Dioxide POC Total CO2 Anion Gap POC Anion Gap POC BUN BUN Creatinine POC Creatinine Est Cr Clr Drug Dosing Est GFR ( Amer) Est GFR (Non-Af Amer) BUN/Creatinine Ratio Glucose POC Glucose POC Glucose (other) 178 H Estimat Average Glucose Hemoglobin A1c Lactate Calcium POC Ioniz Calcium Amy Phosphorus Magnesium Total Bilirubin AST ALT Alkaline Phosphatase Troponin I Total Protein Albumin Globulin Albumin/Globulin Ratio Procalcitonin 18.23 H TSH Urine Color Urine Appearance Urine pH Ur Specific [place] Urine Protein Urine Glucose (UA) Urine Ketones Urine Blood Urine Nitrite Urine Bilirubin Urine Urobilinogen Ur Leukocyte Esterase Urine WBC (Auto) Urine RBC (Auto) U Hyaline Cast (Auto) U Epithel Cells (Auto) Urine Bacteria (Auto) Urine Yeast Nasal Screen MRSA (PCR) Random Vancomycin 18.5 SARS-CoV-2 (PCR) Influenza Type A (PCR) Influenza Type B (PCR) RSV (RT-PCR) 08/05/21 08/05/21 08/05/21 10:21 11:57 16:06 WBC RBC Hgb POC Hgb Hct POC Hct MCV MCH MCHC RDW Std Deviation RDW Coeff of Juno Plt Count MPV Immature Gran % (Auto) Neut % (Auto) Lymph % (Auto) Cuming % (Auto) Eos % (Auto) Baso % (Auto) Neut # (Auto) Lymph # (Auto) Cuming # (Auto) Eos # (Auto) Baso # (Auto) Immature Gran # (Auto) RBC Morphology PT INR APTT PTT Ratio POC Sodium Sodium POC Potassium Potassium POC Chloride Chloride Carbon Dioxide POC Total CO2 Anion Gap POC Anion Gap POC BUN BUN Creatinine POC Creatinine Est Cr Clr Drug Dosing Est GFR ( Amer) Est GFR (Non-Af Amer) BUN/Creatinine Ratio Glucose POC Glucose POC Glucose (other) 128 H 181 H Estimat Average Glucose Hemoglobin A1c Lactate 2.1 H* Calcium POC Ioniz Calcium Amy Phosphorus Magnesium Total Bilirubin AST ALT Alkaline Phosphatase Troponin I Total Protein Albumin Globulin Albumin/Globulin Ratio Procalcitonin TSH Urine Color Urine Appearance Urine pH Ur Specific [place] Urine Protein Urine Glucose (UA) Urine Ketones Urine Blood Urine Nitrite Urine Bilirubin Urine Urobilinogen Ur Leukocyte Esterase Urine WBC (Auto) Urine RBC (Auto) U Hyaline Cast (Auto) U Epithel Cells (Auto) Urine Bacteria (Auto) Urine Yeast Nasal Screen MRSA (PCR) Random Vancomycin SARS-CoV-2 (PCR) Influenza Type A (PCR) Influenza Type B (PCR) RSV (RT-PCR) 08/05/21 16:46 WBC RBC Hgb POC Hgb Hct POC Hct MCV MCH MCHC RDW Std Deviation RDW Coeff of Juno Plt Count MPV Immature Gran % (Auto) Neut % (Auto) Lymph % (Auto) Cuming % (Auto) Eos % (Auto) Baso % (Auto) Neut # (Auto) Lymph # (Auto) Cuming # (Auto) Eos # (Auto) Baso # (Auto) Immature Gran # (Auto) RBC Morphology PT INR APTT PTT Ratio POC Sodium Sodium POC Potassium Potassium POC Chloride Chloride Carbon Dioxide POC Total CO2 Anion Gap POC Anion Gap POC BUN BUN Creatinine POC Creatinine Est Cr Clr Drug Dosing Est GFR ( Amer) Est GFR (Non-Af Amer) BUN/Creatinine Ratio Glucose POC Glucose POC Glucose (other) Estimat Average Glucose Hemoglobin A1c Lactate Pending Calcium POC Ioniz Calcium Amy Phosphorus Magnesium Total Bilirubin AST ALT Alkaline Phosphatase Troponin I Total Protein Albumin Globulin Albumin/Globulin Ratio Procalcitonin TSH Urine Color Urine Appearance Urine pH Ur Specific [place] Urine Protein Urine Glucose (UA) Urine Ketones Urine Blood Urine Nitrite Urine Bilirubin Urine Urobilinogen Ur Leukocyte Esterase Urine WBC (Auto) Urine RBC (Auto) U Hyaline Cast (Auto) U Epithel Cells (Auto) Urine Bacteria (Auto) Urine Yeast Nasal Screen MRSA (PCR) Random Vancomycin SARS-CoV-2 (PCR) Influenza Type A (PCR) Influenza Type B (PCR) RSV (RT-PCR) Diagnostic Findings Microbiology 08/04/21 19:10 Urine,Straight Cath Urine Culture - Preliminary Pin-point growth present, reincubating. 08/04/21 17:18 Blood Aerobic Blood Culture - Preliminary Gram positive cocci clusters 08/04/21 17:20 Blood Aerobic Blood Culture - Preliminary Gram positive cocci clusters PG Care Time/CCT Total # of Minutes Spent Total Time Spent with Patient: Total time spent is greater than 50% in coordination of care (as documented) at patient's floor/unit and/or counseling patient: Coding Level of Care Code 42361 Subseq Hosp Care Lvl 2 Diagnoses Septic shock A41.9; R65.21 Depression F32.A Coronary artery disease I25.10 Hypertension I10 Diabetic peripheral neuropathy E11.42 Chronic kidney disease requiring chronic dialysis N18.6; Z99.2 Obesity E66.9 Obstructive sleep apnea G47.33 Hypothyroidism E03.9 Anemia in chronic renal disease N18.9; D63.1 Chronic respiratory failure with hypoxia J96.11 Bacteremia R78.81 UTI (urinary tract infection) N39.0 Discitis of thoracic region M46.44 Acute osteomyelitis of right calcaneus M86.171 Acute metabolic encephalopathy G93.41 Hypomagnesemia E83.42 Abdominal pain R10.9 Coagulopathy D68.9 DVT prophylaxis Z29.9 History of GI bleed Z87.19 Candidiasis of mouth and esophagus B37.81; B37.0 Hyperglycemia R73.9
--- NOTE | 2021-08-05 16:52 | CT Scan Report ---
CT SCAN OF THE ABDOMEN AND PELVIS WITH IV CONTRAST CLINICAL HISTORY: Generalized abdominal pain. COMPARISON STUDY: Abdominal CT dated 08/04/2021. TECHNIQUE: Following the IV administration of 94 cc of Optiray 320, CT scan of the abdomen and pelvi s is performed from the lung bases to the proximal femora. Images are reviewed in the axial, sagittal , and coronal planes. IV contrast was administered without complication. A dose lowering technique wa s utilized adhering to the principles of ALARA. The examination is degraded by streak artifact from t he arms which could not be elevated above the abdomen. CT DOSE: 1554.41 mGy.cm FINDINGS: Lung bases: The tip of a central venous infusion port terminates at the cavoatrial junction. The hear t is enlarged and without pericardial effusion. The coronary arteries are densely calcified. The lung bases are clear noting dependent atelectasis. Liver: The contrast-enhanced liver is cirrhotic in morphology and heterogeneous in attenuation. There is nodularity of the hepatic surface contour. Hepatic attenuation is decreased suggesting steatosis. There is no intrahepatic biliary ductal dilatation. The hepatic veins and portal veins are patent. Gallbladder: The gallbladder is distended but otherwise normal in appearance. Spleen: Normal in size and attenuation. Pancreas: Atrophic and grossly unremarkable. Adrenal glands: Unremarkable. Kidneys: The contrast enhanced kidneys are atrophic and without hydronephrosis. The kidneys enhance s ymmetrically. There are extensive bilateral renovascular calcifications. Abdominal vasculature: The abdominal aorta is normal in course and caliber noting moderate to advance d atherosclerotic calcification. A stent is noted in the right superficial femoral artery. This may b e occluded. There is also likely occlusion of the left superficial femoral artery. A left femoral gerry tral venous catheter is in place. Bowel: There is rectosigmoid fecal retention and mild constipation. No bowel obstruction is identifie d. There are scattered colonic diverticula without CT evidence of acute diverticulitis. The appendix is well-visualized and normal. A rectal temperature probe is in place. Peritoneum: There is no intraperitoneal free air or abdominal ascites. There is marked generalized at rophy of the regional musculature. Lymphadenopathy: None. Pelvic viscera: The bladder is decompressed around a Garcia catheter and not well evaluated. The uteru s and adnexa are normal as visualized. Skeletal structures: The skeletal structures are osteopenic. There is moderate to advanced lumbosacra l spondylosis. No lytic or blastic lesions are seen. There are chronic/healed bilateral pubic ring fr actures. There is induration of the presacral soft tissues seen on axial image #396. IMPRESSION: 1. No acute infectious or inflammatory findings are identified in the abdomen or pelvis. 2. The liver is cirrhotic in morphology with evidence of steatosis. 3. The gallbladder is distended but otherwise normal in appearance. 4. There is induration of the presacral soft tissues. Correlate clinically for evidence of developing decubitus ulcer. 5. No bowel obstruction. 6. Additional findings as above. ACT 112: Negative or not required by law. Electronically signed by: Anand Pruett M.D. 08/05/2021 4:49 PM
[2021-08-05] MEDS: NYSTATIN SUSP 500,000 U/5 ML UDC PO SCH ×2 (17:47→19:58)
[2021-08-05] MEDS: NOREPINEPHRINE/D5W 8 MG/508 ML BAG IV SCH (17:47)
[2021-08-05] MEDS: ACETAMINOPHEN 325 MG TAB PO PRN (19:56)
[2021-08-06] MEDS: INSULIN ASPART PER UNIT SC SCH ×6 (00:25→21:07)
[2021-08-06] MEDS: NOREPINEPHRINE/D5W 8 MG/508 ML BAG IV SCH ×2 (02:08→13:06)
[2021-08-06] MEDS: PIPERACILLIN/TAZOBACTAM 3.375 GM in DEXTROSE 5% 100 ML IV SCH ×2 (02:08→13:10)
[2021-08-06] MEDS: NORMOSOL-R 1,000 ML IV SCH (05:59)
[2021-08-06] MEDS: LEVOTHYROXINE SODIUM 88 MCG TABLET PO SCH (06:00)
[2021-08-06 06:06] LABS: Basophils # (auto) 0.08 K/uL (0-0.2); Basophils % (auto) 0.5 %; Eosinophils # (auto) 0.26 K/uL (0-0.5); Eosinophils % (auto) 1.7 %; Hematocrit (blood only) 34.2 % (37-47); Hemoglobin 10.6 g/dL (12.0-16.0); Immature Granulocytes # (auto) 0.04 K/uL (0.00-0.02); Immature Granulocytes % (auto) 0.3 %; Lymphocytes # (auto) 3.14 K/uL (1.2-3.4); Lymphocytes % (auto) 20.1 %; Mean Corpuscular Hemoglobin 27.5 pg (25-34); Mean Corpuscular Volume 88.6 fL (80-100); Mean Platelet Volume 10.5 fL (7.4-10.4); Monocytes # (auto) 1.76 K/uL (0.11-0.59); Monocytes % (auto) 11.3 %; Neutrophils # (auto) 10.35 K/uL (1.4-6.5); Neutrophils % (auto) 66.1 %; Platelet Count 257 K/uL (130-400); RDW Coefficient of Variation 18.3 % (11.5-14.5); RDW Standard Deviation 59.3 fL (36.4-46.3); Red Blood Count 3.86 M/uL (4.2-5.4); White Blood Count 15.63 K/uL (4.8-10.8)
[2021-08-06 06:17] LABS: INR 1.3 (0.9-1.1); Prothrombin Time 13.2 Seconds (9.0-12.0)
[2021-08-06 06:34] LABS: BUN Creatinine Ratio 8.5 (10-20); Calcium 7.9 mg/dl (8.5-10.1); Creatinine Clr Calc Pharmacy 16.9 ml/min; Est GFR (African American) 15.1 ml/min; Magnesium 2.1 mg/dl (1.7-2.4); Phosphorus 3.5 mg/dl (2.5-4.9); Potassium 3.5 mmol/L (3.5-5.1)
--- NOTE | 2021-08-06 06:41 | Electrocardiogram Report ---
Test Reason : Blood Pressure : / mmHG Vent. Rate : 139 BPM Atrial Rate : 139 BPM P-R Int : 168 ms QRS Dur : 086 ms QT Int : 294 ms P-R-T Axes : 000 -44 075 degrees QTc Int : 447 ms Poor data quality, interpretation may be adversely affected Sinus tachycardia Left axis deviation Anterolateral infarct , age undetermined Abnormal ECG No previous ECGs available Confirmed by Joaquin Shaw ([id number]) on 08/06/2021 6:40:50 AM Referred By: [facility] Confirmed By:Joaquin Shaw
[2021-08-06] MEDS ORDERED: SODIUM CHLORIDE 0.9% 1000ML 1,000 ML IV PRN (08:23)
[2021-08-06] MEDS ORDERED: HEPARIN SOD (PORCINE) 1000 UNIT/ML IV ONE (08:23)
[2021-08-06] MEDS: NYSTATIN SUSP 500,000 U/5 ML UDC PO SCH ×4 (08:32→22:56)
[2021-08-06] MEDS: DULoxetine HCL 30 MG CAP PO SCH (08:32)
[2021-08-06] MEDS: DOCUSATE SODIUM 100 MG CAP PO SCH ×2 (08:32→22:56)
[2021-08-06] MEDS ORDERED: MIDODRINE HCL 10 MG TAB PO SCH (09:00)
[2021-08-06] MEDS ORDERED: FAMOTIDINE 20 MG in SYRINGE 3 ML IV SCH (09:00)
--- NOTE | 2021-08-06 09:32 | Critical Care Progress Note ---
Date of Service August 06, 2021 Assessment & Plan (1) Admitted to intensive care unit: Plan: Reason Critically Ill: 71-year-old female with severe sepsis and septic shock secondary to multiple possible underlying sources including osteomyelitis of the RIGHT calcaneus, urinary tract infection, and possible discitis/osteomyelitis of the thoracic spine. Patient hemodynamically unstable and requiring pressors status post crystalloid resuscitation in the complicated end-stage renal disease patient on hemodialysis. NEURO - * Altered mental status: Improved * CT head demonstrated no acute findings. CARDIAC/VASCULAR - * Hypotension: improving * Secondary to sepsis syndrome. * Received 1 L crystalloid in the emergency department. Agree with judicious crystalloid administration in the hemodialysis dependent patient. * decreasing Levophed at this time * 25 grams albumin * 100 mg hydrocortisone x 1, cortisol 18 * Monitor on telemetry. RESPIRATORY - * Chronic hypoxic respiratory failure, COPD, AUDI: Improved GI/NUTRITION - * Would cautiously advance diet and the patient currently requiring vasopressors. * Prophylaxis: Famotidine RENAL/LYTES - * End-stage renal disease on hemodialysis (Thursday//Thursday): * Order placed for nephrology. * Appreciate their ongoing guidance. * Patient not required emergent hemodialysis at this time. * Electrolytes appropriate. - * UTI: * Patient apparently makes minimal amounts of urine. * Urine re-incubating * Garcia in place - Strict I&Os. ENDO - * IDDM: * BSGs per unit protocol. ISS --> gtt per unit policy. * Hypothyroidism: * Continue current outpatient PO Rx HEME - * Anemia of chronic disease (ESRD) * Monitor closely for s/s bleeding as she has recently been admitted w/ bleeding AVM of the bowels ID - * Severe sepsis w/ septic shock: * Multifactorial, however concerning purulent urine output. May likely be acute sepsis source. * Concerning findings of osteomyelitis of the RIGHT calcaneus. Likely more chronic, however. * ??Discitis/Osteomyelitis of the thoracic spine. Patient c/o back pain on presentation. Febrile. Unable to complete great exam given her cognitive status. Will hold on MRI at this time until we see how patient responds to current therapies. I am uncertain if the patient would make the best surgical spine candidate either way. * Bacteremia: * Gram POSITIVE cocci in clusters x2 on blood cultures obtained in the outpatient setting today. * While this may suggest osteomyelitis as the primary source of current septicemia, we should certainly keep CLABSI on the differential as well as the patient is with RIGHT IJ permacath. * Serology pending for MRSA differentiation. * Currently covered appropriately w/ Zosyn and Vancomycin until urine speciates- additional 24 hours * Antibiotics dosing by pharmacy appreciated. Will have orthopedics consult and evaluate for possible management vs amputation. LINES/IV ACCESS - * PIVs x2 * RIGHT IJ Permacath * LEFT Femoral CVL - hopefully able to discontinue in next 24 hours * Garcia DVT PROPHYLAXIS - * Hold on chemoprophylaxis with recent GIB * SCDs CODE STATUS - * Patient w/ POLST form stating DNR/DNI status. * Patient's sister, Romina Boswell ([phone]) * DNR/DNI: agreeable to continuing with current care with frequent reassessment for progression/regression with ongoing goals of care to reflect patient's responsiveness to current treatment. Discussed on multidisciplinary rounds I have personally spent 84 minutes of critical care time in the direct management of this patient. This is a life/limb threatening event. This includes time spent evaluating patient, direct bedside care, chart review, placing orders, interpretation of diagnostic studies, discussion with consultants, patient, and family members, as well as other required patient management activities. This time is exclusive of all separately billable procedures, and teaching time and separate from and in addition to any other critical care service time. Update: 46 patient complains of chest pain during ECHO. Not reproducible with palpation, but difficult to describe by patient, unable to give a number value but "Not too bad" EKG reviewed, trop previously elevated 0.23-0.31 in the setting of sepsis, hypotension requiring vasoactives and ESRD on dialysis with known MRSA bacteremia. Will consult cardiology for further advice and contact sister regarding goals of care. Advised orthopedics and nephrology recommending line holiday. Medically complex and patient previously opting for limited interventions. No obvious STEMI. I was able to contact patient's sister, , we discussed goals of care and she felt very torn about how aggressive to proceed. We discussed need for possible line holiday, need for invasive cardiac evaluation, need for additional venous/dialysis access. She will attempt to come to bedside, while concurrently continuing with aggressive care including plan to remove line. (2) Severe sepsis: (3) AMS (altered mental status): (4) Hypoxia: (5) Chronic kidney disease requiring chronic dialysis: (6) Septic shock: (7) Acute osteomyelitis of right calcaneus: (8) Discitis of thoracic region: (9) UTI (urinary tract infection): Admission and Anticipated Discharge Date Admission Date: August 04, 2021 Subjective sleeping during my evaluation Physical Exam Physical Exam: General: sleeping. Skin: Warm, dry, Head: Atraumatic Ears, nose, mouth and throat: airway patent Cardiovascular: Normal peripheral perfusion Respiratory: no respiratory distress Gastrointestinal: Non distended Musculoskeletal: No deformity Results & Data Results & Data ([facility]) Vital Signs (Past 12 Hours) Vital Signs Temp Pulse Resp BP Pulse Ox 08/06/21 08:00 84 08/06/21 05:30 36.6 C 101 H 20 131/78 92 08/06/21 05:10 36.6 C 93 H 20 85/61 L 94 08/06/21 05:00 36.6 C 89 18 95/59 L 94 08/06/21 04:39 36.7 C 91 H 18 113/68 93 08/06/21 04:30 120/73 08/06/21 04:00 36.8 C 93 H 20 128/70 92 08/06/21 03:45 36.9 C 99 H 17 115/68 94 08/06/21 03:30 36.9 C 94 H 19 111/84 94 08/06/21 03:00 37.0 C 95 H 24 117/74 94 08/06/21 02:30 37.0 C 103 H 17 128/62 93 08/06/21 02:00 37.1 C 95 H 15 112/76 93 08/06/21 01:30 37.2 C 98 H 21 112/68 91 08/06/21 01:00 37.3 C 96 H 21 96/57 L 92 08/06/21 00:30 37.4 C 98 H 20 103/63 91 08/06/21 00:15 37.4 C 105 H 15 106/66 91 08/06/21 00:00 37.4 C 101 H 21 104/63 91 08/05/21 23:30 37.4 C 99 H 16 102/63 91 08/05/21 23:07 37.4 C 102 H 18 97/58 L 90 08/05/21 23:06 37.4 C 102 H 17 79/48 L 90 08/05/21 23:04 93/57 L 08/05/21 23:00 37.4 C 100 H 13 94/57 L 90 08/05/21 22:50 37.4 C 101 H 12 90 08/05/21 22:40 37.4 C 99 H 18 90 08/05/21 22:39 37.4 C 99 H 12 100/62 90 08/05/21 22:30 37.4 C 98 H 19 100/57 L 91 08/05/21 22:20 37.4 C 98 H 17 90 08/05/21 22:10 37.4 C 98 H 17 91 08/05/21 22:08 37.3 C 98 H 13 104/56 L 90 08/05/21 22:01 37.3 C 96 H 17 92/59 L 93 08/05/21 22:00 37.3 C 94 H 18 93 08/05/21 21:50 37.3 C 92 H 18 92 08/05/21 21:40 37.3 C 93 H 13 92 08/05/21 21:30 37.3 C 92 H 19 99/55 L 90 Critical Care Results & Data Vital Signs (Past 12 Hours) Vital Signs Temp Pulse Resp BP Pulse Ox 08/06/21 08:00 84 08/06/21 05:30 36.6 C 101 H 20 131/78 92 08/06/21 05:10 36.6 C 93 H 20 85/61 L 94 08/06/21 05:00 36.6 C 89 18 95/59 L 94 08/06/21 04:39 36.7 C 91 H 18 113/68 93 08/06/21 04:30 120/73 08/06/21 04:00 36.8 C 93 H 20 128/70 92 08/06/21 03:45 36.9 C 99 H 17 115/68 94 08/06/21 03:30 36.9 C 94 H 19 111/84 94 08/06/21 03:00 37.0 C 95 H 24 117/74 94 08/06/21 02:30 37.0 C 103 H 17 128/62 93 08/06/21 02:00 37.1 C 95 H 15 112/76 93 08/06/21 01:30 37.2 C 98 H 21 112/68 91 08/06/21 01:00 37.3 C 96 H 21 96/57 L 92 08/06/21 00:30 37.4 C 98 H 20 103/63 91 08/06/21 00:15 37.4 C 105 H 15 106/66 91 08/06/21 00:00 37.4 C 101 H 21 104/63 91 08/05/21 23:30 37.4 C 99 H 16 102/63 91 08/05/21 23:07 37.4 C 102 H 18 97/58 L 90 08/05/21 23:06 37.4 C 102 H 17 79/48 L 90 08/05/21 23:04 93/57 L 08/05/21 23:00 37.4 C 100 H 13 94/57 L 90 08/05/21 22:50 37.4 C 101 H 12 90 08/05/21 22:40 37.4 C 99 H 18 90 08/05/21 22:39 37.4 C 99 H 12 100/62 90 08/05/21 22:30 37.4 C 98 H 19 100/57 L 91 08/05/21 22:20 37.4 C 98 H 17 90 08/05/21 22:10 37.4 C 98 H 17 91 08/05/21 22:08 37.3 C 98 H 13 104/56 L 90 08/05/21 22:01 37.3 C 96 H 17 92/59 L 93 08/05/21 22:00 37.3 C 94 H 18 93 08/05/21 21:50 37.3 C 92 H 18 92 08/05/21 21:40 37.3 C 93 H 13 92 08/05/21 21:30 37.3 C 92 H 19 99/55 L 90 Lab & Micro Results (Past 24 Hours) RBC 3.86 M/uL (4.2-5.4) L 08/06/21 WBC 15.63 K/uL (4.8-10.8) H 08/06/21 Hgb 10.6 g/dL (12.0-16.0) L 08/06/21 Hct 34.2 % (37-47) L 08/06/21 MCV 88.6 fL (80-100) 08/06/21 MCH 27.5 pg (25-34) 08/06/21 MCHC 31.0 g/dL (32-36) L 08/06/21 RDW Standard Deviation 59.3 fL (36.4-46.3) H 08/06/21 RDW Coefficient of Variation 18.3 % (11.5-14.5) H 08/06/21 Plt Count 257 K/uL (130-400) 08/06/21 MPV 10.5 fL (7.4-10.4) H 08/06/21 Neutrophils (%) (Auto) 66.1 % 08/06/21 Lymphocytes (%) (Auto) 20.1 % 08/06/21 Monocytes # (Auto) 1.76 K/uL (0.11-0.59) H 08/06/21 Eosinophils # (Auto) 0.26 K/uL (0-0.5) 08/06/21 Immature Granulocyte % (Auto) 0.3 % 08/06/21 Neutrophils # (Auto) 10.35 K/uL (1.4-6.5) H 08/06/21 Lymphocytes # (Auto) 3.14 K/uL (1.2-3.4) 08/06/21 Monocytes # (Auto) 1.76 K/uL (0.11-0.59) H 08/06/21 Eosinophils # (Auto) 0.26 K/uL (0-0.5) 08/06/21 Basophils # (Auto) 0.08 K/uL (0-0.2) 08/06/21 Immature Granulocyte # (Auto) 0.04 K/uL (0.00-0.02) H 08/06/21 Na 133 mmol/L (136-145) L 08/06/21 K 3.5 mmol/L (3.5-5.1) 08/06/21 Cl 98 mmol/L (98-107) 08/06/21 CO2 21 mmol/L (21-32) 08/06/21 Anion Gap 14 (3-11) H 08/06/21 BUN 29 mg/dl (6-23) H 08/06/21 Creatinine 3.40 mg/dl (0.6-1.2) H 08/06/21 Estimated GFR ( Amer) 15.1 ml/min 08/06/21 Estimated GFR (Non-Af Amer) 13.0 ml/min 08/06/21 BUN/Creatinine Ratio 8.5 (10-20) L 08/06/21 Glu 136 mg/dl (70-99(Fasting)) H 08/06/21 Ca 7.9 mg/dl (8.5-10.1) L 08/06/21 Phosphorus Level 3.5 mg/dl (2.5-4.9) 08/06/21 Mg 2.1 mg/dl (1.7-2.4) 08/06/21 05:07 08/06/21 Calcium Level 7.9 mg/dl (8.5-10.1) L 08/06/21 05:07 08/06/21 Prothromb Time International Ratio 1.3 (0.9-1.1) H 08/06/21 05:07 08/06/21 Microbiology 08/04/21 17:20 Aerobic Blood Culture - Preliminary Blood Staphylococcus aureus Anaerobic Blood Culture - Preliminary No growth in Anaerobic bottle after 24 hours. 08/04/21 17:18 Aerobic Blood Culture - Preliminary Blood Staphylococcus aureus Anaerobic Blood Culture - Preliminary No growth in Anaerobic bottle after 24 hours. 08/04/21 19:10 Urine Culture - Preliminary Urine,Straight Cath Pin-point growth present, reincubating. Diagnostic Findings (Past 24 Hours) Abdomen/Pelvis CT 08/05/21 16:03 CT SCAN OF THE ABDOMEN AND PELVIS WITH IV CONTRAST CLINICAL HISTORY: Generalized abdominal pain. COMPARISON STUDY: Abdominal CT dated 08/04/2021. TECHNIQUE: Following the IV administration of 94 cc of Optiray 320, CT scan of the abdomen and pelvis is performed from the lung bases to the proximal femora. Images are reviewed in the axial, sagittal, and coronal planes. IV contrast was administered without complication. A dose lowering technique was utilized adhering to the principles of ALARA. The examination is degraded by streak artifact from the arms which could not be elevated above the abdomen. CT DOSE: 1554.41 mGy.cm FINDINGS: Lung bases: The tip of a central venous infusion port terminates at the cavoatrial junction. The heart is enlarged and without pericardial effusion. The coronary arteries are densely calcified. The lung bases are clear noting dependent atelectasis. Liver: The contrast-enhanced liver is cirrhotic in morphology and heterogeneous in attenuation. There is nodularity of the hepatic surface contour. Hepatic attenuation is decreased suggesting steatosis. There is no intrahepatic biliary ductal dilatation. The hepatic veins and portal veins are patent. Gallbladder: The gallbladder is distended but otherwise normal in appearance. Spleen: Normal in size and attenuation. Pancreas: Atrophic and grossly unremarkable. Adrenal glands: Unremarkable. Kidneys: The contrast enhanced kidneys are atrophic and without hydronephrosis. The kidneys enhance symmetrically. There are extensive bilateral renovascular calcifications. Abdominal vasculature: The abdominal aorta is normal in course and caliber noting moderate to advanced atherosclerotic calcification. A stent is noted in the right superficial femoral artery. This may be occluded. There is also likely occlusion of the left superficial femoral artery. A left femoral central venous catheter is in place. Bowel: There is rectosigmoid fecal retention and mild constipation. No bowel obstruction is identified. There are scattered colonic diverticula without CT evidence of acute diverticulitis. The appendix is well-visualized and normal. A rectal temperature probe is in place. Peritoneum: There is no intraperitoneal free air or abdominal ascites. There is marked generalized atrophy of the regional musculature. Lymphadenopathy: None. Pelvic viscera: The bladder is decompressed around a Garcia catheter and not well evaluated. The uterus and adnexa are normal as visualized. Skeletal structures: The skeletal structures are osteopenic. There is moderate to advanced lumbosacral spondylosis. No lytic or blastic lesions are seen. There are chronic/healed bilateral pubic ring fractures. There is induration of the presacral soft tissues seen on axial image #396. IMPRESSION: 1. No acute infectious or inflammatory findings are identified in the abdomen or pelvis. 2. The liver is cirrhotic in morphology with evidence of steatosis. 3. The gallbladder is distended but otherwise normal in appearance. 4. There is induration of the presacral soft tissues. Correlate clinically for evidence of developing decubitus ulcer. 5. No bowel obstruction. 6. Additional findings as above. ACT 112: Negative or not required by law. Electronically signed by: Anand Pruett M.D. 08/05/2021 4:49 PM I & O Totals 24 Hours 08/05/21 08/06/21 08/07/21 06:59 06:59 06:59 Intake Total 1585.093 / 5187.737 9241.309 / 3615.309 Output Total 300 / 300 578 / 578 Balance 1285.093 / 3978.419 5657.309 / 3037.309 Cumulative 08/04/21 16:59 thru 08/06/21 06:54 Intake Total 5200.402 Output Total 878 Balance 4322.402 RT Ventilator Mngmt (Last Documented) Ventilator Ordered Settings Respiratory Rate 20 08/06/21 05:30 Ventilator - PT Measurements Respiratory Rate 20 Coding Level of Care Code Critical Care ea addt'l 30 min Diagnoses Admitted to intensive care unit Z78.9 Severe sepsis A41.9; R65.20 AMS (altered mental status) R41.82 Altered mental status type: unspecified Hypoxia R09.02 Chronic kidney disease requiring chronic dialysis N18.6; Z99.2 Septic shock A41.9; R65.21 Acute osteomyelitis of right calcaneus M86.171 Discitis of thoracic region M46.44 UTI (urinary tract infection) N39.0 (1) AMS (altered mental status) Altered mental status type: unspecified Qualified Code(s): R41.82 - Altered mental status, unspecified
--- NOTE | 2021-08-06 09:53 | Hospitalist Progress Note ---
Date of Service August 06, 2021 Assessment & Plan (1) Septic shock: Plan: With MSSA Septicemia BCxs with MSSA from 08/04, repeat BCxs 08/05 NGTD Ur cx with Gamma hemolytic Strep species Source - HD catheter vs SBE vs diskitis spine/osteomyelitis of foot vs UTI Remains on levophed and uses midodrine on HD days. Random cortisol level 18 ECHO no valvular vegetation Follow repeat blood cxs Continue zosyn and vancomycin Continue levophed to maintain MAP >65. Giving one dose IV hydrocortisone 100mg today as per ICU -consult Ortho re OM of heel to see about debridement -consult Vascular to remove tunneled HD perm cath (2) Bacteremia: Plan: as above (3) Discitis of thoracic region: Plan: Suspected based on CT chest findings. May need MRI t-spine. Too ill to pursue at this time. Treat any pain as needed. continue with IV abx as above (4) Acute osteomyelitis of right calcaneus: Plan: Suspected based on plain films. WIth open draining foul smelling wound on right heel Wound care saw in consult, recs appreciated. Ultimately will need debridement. Continue IV zosyn/vanco. COnsult Ortho offload pressure WOund cx growing STaph (5) Acute metabolic encephalopathy: Plan: 2nd to sepsis/septic shock. Supportive care. ongoing (6) UTI (urinary tract infection): Plan: ua suspicious for such. urine cx with gamma strep as above Continue IV antibiotic therapy. (7) Depression: Plan: Recently on 120mg of cymbalta. Dose reduced while patient was at [facility]. Continue 30mg daily. (8) Coronary artery disease: Plan: History uncertain. With WMAs on ECHO here today Mild troponin elevation c/w myocardial demand ischemia rather than ACS. Cardiology consult appreciated continue statin, not on ASA, beta noel-had recent GI bleed and should not be on antiplatelets right now (9) Hypertension: Plan: lasix on hold BPs low as above with shock (10) Diabetic peripheral neuropathy: Plan: Hold gabapentin in light of acute metabolic encephalopathy. Cont cymbalta. (11) Chronic kidney disease requiring chronic dialysis: Plan: Date of HD initiation uncertain. Sometime in the last few months by report while hospitalized in [place]. [facility] consulted for HD needs. See discussion in #1 above re: HD catheter. s/p HD on 4/5 (12) Obesity: Plan: BMI 30 (13) Obstructive sleep apnea: Plan: History of. Not on CPAP by report. (14) Hypothyroidism: Plan: TSH wnl. Continue levothyroxine 88mcg daily. (15) Anemia in chronic renal disease: Plan: Hb 10.6 this am and stable. CBC am. (16) Chronic respiratory failure with hypoxia: Plan: 2L NC 02 at baseline. (17) Hypomagnesemia: Plan: replaced and normalized (18) Abdominal pain: Plan: CT a/p with ?pericholecystic fluid. RUQ u/s without findings to suggest acute cholecystitis. Lower abd pain may be due to constipation (moderate stool in rectum on CT). Dulcolax suppox x 1 was given. (19) Coagulopathy: Plan: INR 1.4. No evidence of DIC. Liver disease? vitamin K deficiency? other? repeat INR now 1.3 consider vit K supplementation. (20) History of GI bleed: Plan: recent AVM bleeding/UGI bleed as per reports from hospitalization in [place] continue PPI bid (21) Candidiasis of mouth and esophagus: Plan: nystatin 5cc qid swish/spit. (22) Hyperglycemia: Plan: Hba1c 5.6%, but may be spurious due to anemia. Significant hyperglycemia. Cont ICU glycemic protocol. (23) Ischemic cardiomyopathy: Plan: noted to have EF 30-35% on ECHO with WMAs, mod-severe , elevated RVSP not volume overloaded holding home lasix BPs cannot tolerate beta noel or hydralazine/isosorbide and renal function can't handle ACEi/ARB (24) Aortic stenosis: Plan: mod-severe on ECHO here (25) DVT prophylaxis: Plan: holding chemical means due to h/o recent GIB Plan: Dispo-continued stay in ICU. Discussed care w/ Six Pack Loader Operator-he discussed care with sister today Admission and Anticipated Discharge Date Admission Date: August 04, 2021 Subjective Pt drowsy but does wake up and answer some questions today. Currently receiving dialysis and remains on Levophed. She reports not feeling well but business relationship manager't describe why. DOes say she has pain in her butt. Tele with sinus tachycardia Review of Systems Review of Systems: All systems reviewed & are unremarkable except as noted in HPI & below Physical Exam Constitutional: WD/WN, vitals as above Eyes: + anicteric sclerae ENMT: external ear and nose normal, oropharynx normal Neck: trachea midline, no thyromegaly Respiratory: normal respiratory effort, lungs clear to auscultation Cardiovascular: Rate/Rhythm: regular rhythm and + tachycardic Heart Sounds: + murmur (3/6 STAN at RUSB) Chest (Breasts): Chest: + vascular access device or port (right tunneled IJ catheter in place) Gastrointestinal (Abdomen): normal bowel sounds, soft, nontender, no hepatosplenomegaly Musculoskeletal: Extremities: extremities normal to inspection; no cyanosis and no clubbing Skin: + wound (rt heel open wound,purulent foul smelling drainage) Neurologic: moves all extremities and awake; no focal motor deficits Psychiatric: Orientation: alert, oriented to person and cooperative Lymphatic: no lymphedema Results & Data Results & Data ([facility]) Vital Signs (Past 12 Hours) Vital Signs Temp Pulse Resp BP Pulse Ox 08/06/21 08:00 84 08/06/21 05:30 36.6 C 101 H 20 131/78 92 08/06/21 05:10 36.6 C 93 H 20 85/61 L 94 08/06/21 05:00 36.6 C 89 18 95/59 L 94 08/06/21 04:39 36.7 C 91 H 18 113/68 93 08/06/21 04:30 120/73 08/06/21 04:00 36.8 C 93 H 20 128/70 92 08/06/21 03:45 36.9 C 99 H 17 115/68 94 08/06/21 03:30 36.9 C 94 H 19 111/84 94 08/06/21 03:00 37.0 C 95 H 24 117/74 94 08/06/21 02:30 37.0 C 103 H 17 128/62 93 08/06/21 02:00 37.1 C 95 H 15 112/76 93 08/06/21 01:30 37.2 C 98 H 21 112/68 91 08/06/21 01:00 37.3 C 96 H 21 96/57 L 92 08/06/21 00:30 37.4 C 98 H 20 103/63 91 08/06/21 00:15 37.4 C 105 H 15 106/66 91 08/06/21 00:00 37.4 C 101 H 21 104/63 91 08/05/21 23:30 37.4 C 99 H 16 102/63 91 08/05/21 23:07 37.4 C 102 H 18 97/58 L 90 08/05/21 23:06 37.4 C 102 H 17 79/48 L 90 08/05/21 23:04 93/57 L 08/05/21 23:00 37.4 C 100 H 13 94/57 L 90 08/05/21 22:50 37.4 C 101 H 12 90 08/05/21 22:40 37.4 C 99 H 18 90 08/05/21 22:39 37.4 C 99 H 12 100/62 90 08/05/21 22:30 37.4 C 98 H 19 100/57 L 91 08/05/21 22:20 37.4 C 98 H 17 90 08/05/21 22:10 37.4 C 98 H 17 91 08/05/21 22:08 37.3 C 98 H 13 104/56 L 90 08/05/21 22:01 37.3 C 96 H 17 92/59 L 93 08/05/21 22:00 37.3 C 94 H 18 93 Laboratory Results 08/06/21 08/06/21 08/06/21 Range/Units 16:23 11:53 08:07 WBC (4.8-10.8) K/uL RBC (4.2-5.4) M/uL Hgb (12.0-16.0) g/dL Hct (37-47) % MCV (80-100) fL MCH (25-34) pg MCHC (32-36) g/dL RDW Std Deviation (36.4-46.3) fL RDW Coeff of Juno (11.5-14.5) % Plt Count (130-400) K/uL MPV (7.4-10.4) fL Immature Gran % (Auto) % Neut % (Auto) % Lymph % (Auto) % Archer % (Auto) % Eos % (Auto) % Baso % (Auto) % Neut # (Auto) (1.4-6.5) K/uL Lymph # (Auto) (1.2-3.4) K/uL Archer # (Auto) (0.11-0.59) K/uL Eos # (Auto) (0-0.5) K/uL Baso # (Auto) (0-0.2) K/uL Immature Gran # (Auto) (0.00-0.02) K/uL PT (9.0-12.0) Seconds INR (0.9-1.1) Sodium (136-145) mmol/L Potassium (3.5-5.1) mmol/L Chloride (98-107) mmol/L Carbon Dioxide (21-32) mmol/L Anion Gap (3-11) BUN (6-23) mg/dl Creatinine (0.6-1.2) mg/dl Est Cr Clr Drug Dosing ml/min Est GFR ( Amer) ml/min Est GFR (Non-Af Amer) ml/min BUN/Creatinine Ratio (10-20) Glucose (70-99(Fasting)) mg/dl POC Glucose (other) 220 H 100 H 120 H (70-99) mg/dl Calcium (8.5-10.1) mg/dl Phosphorus (2.5-4.9) mg/dl Magnesium (1.7-2.4) mg/dl Procalcitonin (0-0.5) ng/ml Random Cortisol mcg/dl Random Vancomycin (10-20) mcg/ml 08/06/21 08/06/21 08/06/21 Range/Units 05:07 05:07 05:07 WBC (4.8-10.8) K/uL RBC (4.2-5.4) M/uL Hgb (12.0-16.0) g/dL Hct (37-47) % MCV (80-100) fL MCH (25-34) pg MCHC (32-36) g/dL RDW Std Deviation (36.4-46.3) fL RDW Coeff of Juno (11.5-14.5) % Plt Count (130-400) K/uL MPV (7.4-10.4) fL Immature Gran % (Auto) % Neut % (Auto) % Lymph % (Auto) % Archer % (Auto) % Eos % (Auto) % Baso % (Auto) % Neut # (Auto) (1.4-6.5) K/uL Lymph # (Auto) (1.2-3.4) K/uL Archer # (Auto) (0.11-0.59) K/uL Eos # (Auto) (0-0.5) K/uL Baso # (Auto) (0-0.2) K/uL Immature Gran # (Auto) (0.00-0.02) K/uL PT 13.2 H (9.0-12.0) Seconds INR 1.3 H (0.9-1.1) Sodium 133 L (136-145) mmol/L Potassium 3.5 (3.5-5.1) mmol/L Chloride 98 (98-107) mmol/L Carbon Dioxide 21 (21-32) mmol/L Anion Gap 14 H (3-11) BUN 29 H (6-23) mg/dl Creatinine 3.40 H (0.6-1.2) mg/dl Est Cr Clr Drug Dosing 16.9 ml/min Est GFR ( Amer) 15.1 ml/min Est GFR (Non-Af Amer) 13.0 ml/min BUN/Creatinine Ratio 8.5 L (10-20) Glucose 136 H (70-99(Fasting)) mg/dl POC Glucose (other) (70-99) mg/dl Calcium 7.9 L (8.5-10.1) mg/dl Phosphorus 3.5 (2.5-4.9) mg/dl Magnesium 2.1 (1.7-2.4) mg/dl Procalcitonin 20.90 H (0-0.5) ng/ml Random Cortisol mcg/dl Random Vancomycin (10-20) mcg/ml 08/06/21 08/06/21 08/06/21 Range/Units 05:07 05:07 03:58 WBC 15.63 H (4.8-10.8) K/uL RBC 3.86 L (4.2-5.4) M/uL Hgb 10.6 L (12.0-16.0) g/dL Hct 34.2 L (37-47) % MCV 88.6 (80-100) fL MCH 27.5 (25-34) pg MCHC 31.0 L (32-36) g/dL RDW Std Deviation 59.3 H (36.4-46.3) fL RDW Coeff of Juno 18.3 H (11.5-14.5) % Plt Count 257 (130-400) K/uL MPV 10.5 H (7.4-10.4) fL Immature Gran % (Auto) 0.3 % Neut % (Auto) 66.1 % Lymph % (Auto) 20.1 % Archer % (Auto) 11.3 % Eos % (Auto) 1.7 % Baso % (Auto) 0.5 % Neut # (Auto) 10.35 H (1.4-6.5) K/uL Lymph # (Auto) 3.14 (1.2-3.4) K/uL Archer # (Auto) 1.76 H (0.11-0.59) K/uL Eos # (Auto) 0.26 (0-0.5) K/uL Baso # (Auto) 0.08 (0-0.2) K/uL Immature Gran # (Auto) 0.04 H (0.00-0.02) K/uL PT (9.0-12.0) Seconds INR (0.9-1.1) Sodium (136-145) mmol/L Potassium (3.5-5.1) mmol/L Chloride (98-107) mmol/L Carbon Dioxide (21-32) mmol/L Anion Gap (3-11) BUN (6-23) mg/dl Creatinine (0.6-1.2) mg/dl Est Cr Clr Drug Dosing ml/min Est GFR ( Amer) ml/min Est GFR (Non-Af Amer) ml/min BUN/Creatinine Ratio (10-20) Glucose (70-99(Fasting)) mg/dl POC Glucose (other) 176 H (70-99) mg/dl Calcium (8.5-10.1) mg/dl Phosphorus (2.5-4.9) mg/dl Magnesium (1.7-2.4) mg/dl Procalcitonin (0-0.5) ng/ml Random Cortisol mcg/dl Random Vancomycin 17.6 (10-20) mcg/ml 08/06/21 08/05/21 08/05/21 Range/Units 00:20 19:49 10:21 WBC (4.8-10.8) K/uL RBC (4.2-5.4) M/uL Hgb (12.0-16.0) g/dL Hct (37-47) % MCV (80-100) fL MCH (25-34) pg MCHC (32-36) g/dL RDW Std Deviation (36.4-46.3) fL RDW Coeff of Juno (11.5-14.5) % Plt Count (130-400) K/uL MPV (7.4-10.4) fL Immature Gran % (Auto) % Neut % (Auto) % Lymph % (Auto) % Archer % (Auto) % Eos % (Auto) % Baso % (Auto) % Neut # (Auto) (1.4-6.5) K/uL Lymph # (Auto) (1.2-3.4) K/uL Archer # (Auto) (0.11-0.59) K/uL Eos # (Auto) (0-0.5) K/uL Baso # (Auto) (0-0.2) K/uL Immature Gran # (Auto) (0.00-0.02) K/uL PT (9.0-12.0) Seconds INR (0.9-1.1) Sodium (136-145) mmol/L Potassium (3.5-5.1) mmol/L Chloride (98-107) mmol/L Carbon Dioxide (21-32) mmol/L Anion Gap (3-11) BUN (6-23) mg/dl Creatinine (0.6-1.2) mg/dl Est Cr Clr Drug Dosing ml/min Est GFR ( Amer) ml/min Est GFR (Non-Af Amer) ml/min BUN/Creatinine Ratio (10-20) Glucose (70-99(Fasting)) mg/dl POC Glucose (other) 151 H 154 H (70-99) mg/dl Calcium (8.5-10.1) mg/dl Phosphorus (2.5-4.9) mg/dl Magnesium (1.7-2.4) mg/dl Procalcitonin (0-0.5) ng/ml Random Cortisol 18.84 mcg/dl Random Vancomycin (10-20) mcg/ml PG Care Time/CCT Total # of Minutes Spent Total Time Spent with Patient: Total time spent is greater than 50% in coordination of care (as documented) at patient's floor/unit and/or counseling patient: Coding Level of Care Code 63545 Subseq Hosp Care Lvl 3 Diagnoses Septic shock A41.9; R65.21 Bacteremia R78.81 Discitis of thoracic region M46.44 Acute osteomyelitis of right calcaneus M86.171 Acute metabolic encephalopathy G93.41 UTI (urinary tract infection) N39.0 Depression F32.A Coronary artery disease I25.10 Hypertension I10 Diabetic peripheral neuropathy E11.42 Chronic kidney disease requiring chronic dialysis N18.6; Z99.2 Obesity E66.9 Obstructive sleep apnea G47.33 Hypothyroidism E03.9 Anemia in chronic renal disease N18.9; D63.1 Chronic respiratory failure with hypoxia J96.11 Hypomagnesemia E83.42 Abdominal pain R10.9 Coagulopathy D68.9 DVT prophylaxis Z29.9 History of GI bleed Z87.19 Candidiasis of mouth and esophagus B37.81; B37.0 Hyperglycemia R73.9 Ischemic cardiomyopathy I25.5 Aortic stenosis I35.0
--- NOTE | 2021-08-06 09:59 | Dialysis Progress Note ---
Date of Service August 06, 2021 Assessment & Plan Admission and Anticipated Discharge Date Admission Date: August 04, 2021 Subjective S--feels weak and c/o some pain. hard to understand. PHYSICAL EXAMINATION: GENERAL: Elderly white female who is quite sick at this time and is on pressors and she is in ICU. HEENT: Mucous membrane is moist. NECK: Supple. No jugular venous distention. CHEST: Bilaterally clear to auscultation. Limited quality of the exam secondary to lack of inspiratory effort. CARDIOVASCULAR: S1 and S2 tachycardic, regular. No murmur heard. ABDOMEN: Soft, nontender. EXTREMITIES: Show no edema. ACCESS: She does have a dialysis catheter on the right side of the chest. LABORATORY TEST: Blood culture is positive for S Aureus. CT chest and chest x- ray did not show any overt pulmonary edema or congestive heart failure. There is some possibility of diskitis, some diffuse ground-glass opacity bilaterally in the lung. Abdomen and pelvis CT scan showed mild pericholecystic infiltr ation. Gallbladder ultrasound already done and there was not any major abnormal finding. Calcaneus x-ray is suggestive of osteomyelitis. ASSESSMENT AND PLAN: A 71-year-old female who presented to the hospital from the rehabilitation [facility] where she was getting rehabilitation following a prolonged hospitalization. I have been consulted for dialysis management. She is a new start of dialysis within the last month with acute renal failure in the setting of extensive medical problems and progression of her underlying CKD IV. End-stage renal disease: She does not have any evidence of overt fluid overload or congestive heart failure. Continue Dialysis for 3.5 hrs and take 1.5 kilo off3 k bath . Bacteremia--S Aureus. Will need to remove HD cath and do line holiday for next few days. Also findings suggestive of osteomyelitis in her calcaneus as well as possible diskitis. We will also need to repeat blood cultures on a daily basis for the next few days. Consider infectious disease consult given complicated infection situation here to help guide the choice and the duration of the antibiotics. Results & Data ([facility]) Vital Signs (Past 12 Hours) Vital Signs Temp Pulse Resp BP Pulse Ox 08/06/21 09:00 105 H 15 97/61 L 93 08/06/21 08:00 36.7 C 97 H 18 112/67 91 08/06/21 07:00 36.7 C 85 17 117/70 93 08/06/21 05:30 36.6 C 101 H 20 131/78 92 08/06/21 05:10 36.6 C 93 H 20 85/61 L 94 08/06/21 05:00 36.6 C 89 18 95/59 L 94 08/06/21 04:39 36.7 C 91 H 18 113/68 93 08/06/21 04:30 120/73 08/06/21 04:00 36.8 C 93 H 20 128/70 92 08/06/21 03:45 36.9 C 99 H 17 115/68 94 08/06/21 03:30 36.9 C 94 H 19 111/84 94 08/06/21 03:00 37.0 C 95 H 24 117/74 94 08/06/21 02:30 37.0 C 103 H 17 128/62 93 08/06/21 02:00 37.1 C 95 H 15 112/76 93 08/06/21 01:30 37.2 C 98 H 21 112/68 91 08/06/21 01:00 37.3 C 96 H 21 96/57 L 92 08/06/21 00:30 37.4 C 98 H 20 103/63 91 08/06/21 00:15 37.4 C 105 H 15 106/66 91 08/06/21 00:00 37.4 C 101 H 21 104/63 91 08/05/21 23:30 37.4 C 99 H 16 102/63 91 08/05/21 23:07 37.4 C 102 H 18 97/58 L 90 08/05/21 23:06 37.4 C 102 H 17 79/48 L 90 08/05/21 23:04 93/57 L 08/05/21 23:00 37.4 C 100 H 13 94/57 L 90 08/05/21 22:50 37.4 C 101 H 12 90 08/05/21 22:40 37.4 C 99 H 18 90 08/05/21 22:39 37.4 C 99 H 12 100/62 90 08/05/21 22:30 37.4 C 98 H 19 100/57 L 91 08/05/21 22:20 37.4 C 98 H 17 90 08/05/21 22:10 37.4 C 98 H 17 91 08/05/21 22:08 37.3 C 98 H 13 104/56 L 90 08/05/21 22:01 37.3 C 96 H 17 92/59 L 93 08/05/21 22:00 37.3 C 94 H 18 93
[2021-08-06] MEDS ORDERED: HYDROCORTISONE SOD 100 MG in SYRINGE 0 ML IV ONE (10:00)
[2021-08-06] MEDS ORDERED: ALBUMIN 25% 100 mL 25 GM/100 ML VIAL IV ONE (10:00)
--- NOTE | 2021-08-06 11:17 | Pharmacy Report ---
Pharmacy Glycemic Short Note 2 - Date of Service August 06, 2021 - Glycemic Short BSG Results (Last 24 hours): 08/04/21 08/05/21 08/05/21 18:40 11:57 16:06 Glucose POC Glucose (other) 332 H 128 H 181 H 08/05/21 08/06/21 08/06/21 19:49 00:20 03:58 Glucose POC Glucose (other) 154 H 151 H 176 H 08/06/21 08/06/21 05:07 08:07 Glucose 136 H POC Glucose (other) 120 H OUTPATIENT ANTIDIABETIC REGIMEN: * N/A * A1c = 5.6% 08/05/21 (however interpret with caution due to shorter RBC lifespan in ESRD) ASSESSMENT: 08/06 * BSGs well controlled over last 24 hours with current Novolog orders * New events: norepi requirements have increased over last 24 hrs, upto 0.2mcg/kg/min overnight but now down to 0.14mcg/kg/min, HD planned this AM, hydrocortisone IV x 1 given this AM. * Patient remains NPO * Reasonable to continue with current Novolog orders given this have controlled BSGs adequately thus far. Although hydrocortisone may increase insulin resistance, HD will likely do the opposite and the steroid dose was x 1 only. 08/05 * Patient admitted with septic shock, MSSA bacteremia, possible CLABSI vs UTI vs discitis, calcaneal osteomyelitis * No prior dx of DM. Pt likely experiencing stress induced hyperglycemia. Broad-spectrum abx ordered and patient is requiring escalating doses of norepi. * HD is planned for tomorrow * Plan to utilize SQ rapid acting insulin alone at this time. No basal insulin will be provided due to increased risks of hypoglycemia in the setting of stre ss induced hyperglycemia. Novolog doses will be provided Q 4 hrs and will provide some element of "basal" insulin. PLAN FOR INPATIENT GLYCEMIC CONTROL: * Check BSGs using iSTAT while on pressors * Basal insulin * None at this time * Bolus insulin * NovoLog per scale Q 4 hrs:
[2021-08-06] MEDS: HEPARIN SOD (PORCINE) 1000 UNIT/ML IV SCH ×2 (11:23→12:36)
--- NOTE | 2021-08-06 14:00 | XCELERA ---
[id number]
--- NOTE | 2021-08-06 14:08 | Electrocardiogram Report ---
Test Reason : Blood Pressure : / mmHG Vent. Rate : 103 BPM Atrial Rate : 103 BPM P-R Int : 178 ms QRS Dur : 088 ms QT Int : 370 ms P-R-T Axes : 088 -46 106 degrees QTc Int : 484 ms Sinus tachycardia Left axis deviation Old Anteroseptal infarct (cited on or before 04-AUG-2021) Old Inferior infarct Abnormal ECG When compared with ECG of 04-AUG-2021 17:22, T wave inversion now evident in Anterior leads Confirmed by Alfredo So ([id number] on 08/06/2021 2:08:31 PM Referred By: [facility] Confirmed By:Alfredo So
--- NOTE | 2021-08-06 14:56 | Pharmacy Report ---
Pharmacy Vanc AUC Short Note - Date of Service August 06, 2021 - Assessment & Plan Assessment * 71 year old F receiving VANCOMYCIN + ZOSYN for treatment of septic shock possibly due to calcaneal osteomyelitis +/- CLABSI +/- UTI +/- discitis. * Pertinent microbiologic data includes: MSSA in BLCXs per [facility] testing on outpt BLCXs; BLCX's x 4 positive from 08/04 all of which are growing MSSA, urine cx showing gamma hemolytic strep, repeat BLCXs ordered 08/05 and one cx ordered thru permacath. Calcaneus x-ray read as possible osteo. Imaging of thoracic spine not yet obtained. TTE report pending. * Day # 3 of antimicrobial therapy * 3.5 hour HD completed this AM. Possible plans to remove permacath following today's HD session per Nephrology consult. Plan Vancomycin * AUC/TSERING is the preferred PK/PD target for vancomycin however pt is not a candidate for this method of dosing due to ESRD / HD * Rather will dose vancomycin based upon random levels drawn in the AM prior to HD treatments * Random level 17.6 this AM. Will give supplemental dose of 500mg x 1 today and recheck random level with AM labs tomorrow. Of note, pt does produce some urine. * Consider deescalation to nafcillin or cefazolin in near future based upon culture data and beta-lactam superiority in the treatment of MSSA bacteremia Zosyn * Given multiple potential sources of infxn, reasonable to continue for now. Urine cx is still preliminary, no cultures collected from heel ulcer * BMI < 35, eCrCl < 20 in setting of HD, continue 3.375gm EI Q 12 hrs Pharmacy will continue to follow and will adjust dose/frequency as necessary. Thank you.
[2021-08-06] MEDS ORDERED: VANCOMYCIN HCL 500 MG in DEXTROSE 5% 100 ML IV ONE (15:00)
[2021-08-06] MEDS: ATORVASTATIN 40 MG TAB PO SCH (16:34)
--- NOTE | 2021-08-06 16:53 | Cardiology Consultation ---
Date of Consultation August 06, 2021 Assessment & Plan (1) Hypotension: (2) Ischemic cardiomyopathy: (3) Septic shock: (4) History of GI bleed: 71-year-old woman with multiple comorbidities recently hospitalized for a month, now admitted with apparent septic shock. Cardiac history not readily available but patient appears to have old inferior and anteroseptal infarcts with some degree of demand ischemia this admission. She was not having any chest pain at the time of my evaluation, despite marked tachycardia and borderline blood pressure. She did not have any overt ischemic ECG changes. Given her history of recent GI bleed and lack of evidence for major ongoing myocardial ischemia, conservative management with optimization of hemodynamics seems most appropriate. She would be unlikely to benefit from any revascularization and the risks of any such procedure and subsequent antip latelet therapy seem prohibitive. Certainly, in addition of an ischemic cardiomyopathy with moderately reduced systolic function to her renal failure, sepsis, debilitation due to prolonged hospitalization, and other medical problems confers a poor prognosis. She seems to have adequate perfusion on vasopressor therapy, would attempt to target low normal or mildly hypotensive blood pressure as goal to minimize tachycardia and reduce afterload. Defer to row boss hoeing in this regard, as he will be more capable of ongoing bedside management of inotropic/vasopressor therapy. No specific cardiac recommendations at this time. Will sign off, please contact if change in her clinical status with cardiac implications. History of Present Illness Reason for Consultation: Chest pain, abnormal echo Requesting Physician: Chico Santoro DO Attending Physician: Jaylene Shi MD History of Present Illness 71-year-old woman admitted from [facility] 08/04/2021 with apparent septic shock, remains on vasopressor therapy, noted to have reduced systolic function and wall motion abnormalities on echo and questionable chest pain. She was hospitalized for a month and in [facility], only very limited records are available. During that hospitalization she developed renal failure and was initiated on dialysis. 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 While at [facility], she developed hypotension and tachycardia, ER evaluation showed WBC 25.9 with imaging showing possible cholecystitis and/or discitis/osteomyelitis and urinalysis showing potential infection as well. She she is currently normotensive on norepinephrine infusion but is tachycardic (128 bpm). She is somnolent but awakens easily and noted no pain. She stated that she had belly pain earlier but denied chest pain. She is a poor historian, but seemed to comprehend my questions well and certainly was denying any current chest pain. She has a Garcia catheter and is apparently producing some urine. Mentation seems intact. Limbs are mildly cool with mildly delayed capillary refill but are not cold. As noted, at the time of my evaluation earlier today, she had no somatic complaints. Allergies Allergy/AdvReac Type Severity Reaction Status Date / Time cyclobenzaprine Allergy Unknown ON MED LIST Verified 08/04/21 17:39 [From Flexeril] Home Medications Medication Instructions Recorded Confirmed Type acetaminophen 325 mg tablet 650 mg PO Q4H PRN 08/04/21 08/04/21 History (Tylenol) atorvastatin 40 mg tablet 80 mg PO QDD 08/04/21 08/04/21 History bisacodyl 10 mg rectal suppository 10 mg AK DAILY PRN 08/04/21 08/04/21 History darbepoetin jono in polysorbat 60 60 mcg SUBCUT WK 08/04/21 08/04/21 History mcg/0.3 mL (polysorb) subcutaneous pen injector docusate sodium 100 mg capsule 100 mg PO BID 08/04/21 08/04/21 History duloxetine 30 mg capsule,delayed 30 mg PO DAILY 08/04/21 08/04/21 History release furosemide 80 mg tablet (Lasix) 80 mg PO BID 08/04/21 08/04/21 History gabapentin 100 mg capsule 200 mg PO HS 08/04/21 08/04/21 History levothyroxine 88 mcg tablet 88 mcg PO DAILYBB 08/04/21 08/04/21 History magnesium hydroxide 400 mg/5 mL 30 ml PO DAILY PRN 08/04/21 08/04/21 History oral suspension (Milk of Magnesia) midodrine 10 mg tablet 20 mg PO 3XWK 08/04/21 08/04/21 History nystatin 100,000 unit/gram topical 1 applic TOPICAL BID 08/04/21 08/04/21 History powder pantoprazole 40 mg tablet,delayed 40 mg PO BID 08/04/21 08/04/21 History release piperacillin-tazobactam 2.25 gram 2.25 g IV Q8H 08/04/21 08/04/21 History intravenous solution polyethylene glycol 3350 17 17 g PO QDL PRN 08/04/21 08/04/21 History gram/dose oral powder (Miralax) sennosides 8.6 mg-docusate sodium 1 tab-cap PO QDL PRN 08/04/21 08/04/21 History 50 mg tablet (Senokot-S) tamsulosin 0.4 mg capsule (Flomax) 0.4 mg PO HS 08/04/21 08/04/21 History tramadol 50 mg tablet 50 mg PO Q12H PRN 08/04/21 08/04/21 History vitamin B complex and vitamin C 1 cap PO DAILY 08/04/21 08/04/21 History no.20-folic acid 1 mg capsule Patient History Medical History Anemia in chronic renal disease Chronic kidney disease requiring chronic dialysis Chronic respiratory failure with hypoxia Coronary artery disease Depression Diabetic peripheral neuropathy History of CVA (cerebrovascular accident) History of gastrointestinal bleeding Hypertension Hypothyroidism Obesity Obstructive sleep apnea Social History Smoking Status: Never smoker Second Hand Exposure: No; Hx Alcohol Use: No Hx Substance Use: No Preferred Language: Bruneian Communication Ability: Effective Senior Military Analyst Required: No Beliefs That Will Affect Care: None Current Living Situation: Family Current Living Situation Comment: pt was at a rehab facility previous lives with nephews that dont help her Feels Safe at Home: Yes Assistive Devices: Walker Physical Exam Physical Exam: Elderly white female who appears somewhat chronically ill but not acutely distressed. BP normotensive currently. Pulse tachycardic at 128 bpm. Skin: No generalized lesions, scattered ecchymoses at IV sites. HEENT: unremarkable. Neck: Jugular venous pulse is mildly elevated at 30 degrees, no carotid bruits. Lungs: Breath sounds generally clear. Cardiac: regular but tachycardic rhythm, no obvious murmur on difficult exam. Diminished aortic and increased pulmonic closure sounds. Abdomen: Nondistended. Extremities: no edema, limbs mildly cool, capillary refill 3 to 4 seconds. Neurologic: Somnolent but readily arousable, answer simple questions, grossly nonfocal. Results & Data ([facility]) Laboratory Results Troponin 0.23 increasing to 0.31. INR 1.3. Hemoglobin 10.6 with white count of 15.63. Sodium 133, otherwise normal electrolytes, BUN 29, creatinine 3.4. Diagnostic Findings Echocardiogram today showed EF 30 to 35% with moderate global hypokinesis and septal akinesis/inferobasal akinesis, only the lateral base moves normally. Moderate to severe aortic stenosis with mild tricuspid regurgitation and moderate pulmonary hypertension. Serial ECG shows sinus tachycardia with old anteroseptal and inferior infarcts, no acute ST deviation, minor anterior T wave inversion new overnight. Chest x-ray on admission showed no pulmonary edema. PG Care Time/CCT Total # of Minutes Spent Total Time Spent with Patient: Total time spent is greater than 50% in coordination of care (as documented) at patient's floor/unit and/or counseling patient: Coding Level of Care Code 11960 Inpt Consult Level 4 Diagnoses Hypotension I95.9 Ischemic cardiomyopathy I25.5 Septic shock A41.9; R65.21 History of GI bleed Z87.19
[2021-08-06] MEDS: oxyCODONE HCL IR 5 MG TAB (IMMEDIATE RELEASE) PO PRN (17:57)
[2021-08-06] MEDS: HEPARIN SOD 5,000 UNIT/0.5 ML VIAL SQ SCH (21:09)
[2021-08-06] MEDS: PANTOprazole 40 MG TAB PO SCH (22:56)
[2021-08-07] MEDS: INSULIN ASPART PER UNIT SC SCH ×6 (01:18→21:13)
[2021-08-07] MEDS: PIPERACILLIN/TAZOBACTAM 3.375 GM in DEXTROSE 5% 100 ML IV SCH ×2 (01:21→13:17)
[2021-08-07 05:08] LABS: Basophils # (auto) 0.01 K/uL (0-0.2); Basophils % (auto) 0.1 %; Eosinophils # (auto) 0.02 K/uL (0-0.5); Eosinophils % (auto) 0.2 %; Hematocrit (blood only) 29.6 % (37-47); Hemoglobin 9.6 g/dL (12.0-16.0); Immature Granulocytes # (auto) 0.02 K/uL (0.00-0.02); Immature Granulocytes % (auto) 0.2 %; Lymphocytes % (auto) 20.7 %; Mean Corpuscular Hemoglobin 27.9 pg (25-34); Mean Corpuscular Hgb Conc 32.4 g/dL (32-36); Mean Platelet Volume 10.4 fL (7.4-10.4); Monocytes # (auto) 1.01 K/uL (0.11-0.59); Monocytes % (auto) 10.5 %; Neutrophils # (auto) 6.58 K/uL (1.4-6.5); Neutrophils % (auto) 68.3 %; Platelet Count 236 K/uL (130-400); RDW Standard Deviation 57.3 fL (36.4-46.3); Red Blood Count 3.44 M/uL (4.2-5.4); White Blood Count 9.64 K/uL (4.8-10.8)
[2021-08-07 05:38] LABS: Anion Gap 9 (3-11); BUN Creatinine Ratio 7.2 (10-20); Blood Urea Nitrogen 15 mg/dl (6-23); Calcium 7.9 mg/dl (8.5-10.1); Carbon Dioxide 28 mmol/L (21-32); Chloride 99 mmol/L (98-107); Creatinine Clr Calc Pharmacy 27.6 ml/min; Est GFR (African American) 27.3 ml/min; Est GFR (Non-African American) 23.5 ml/min; Glucose 127 mg/dl (70-99(Fasting)); Potassium 3.5 mmol/L (3.5-5.1); Sodium 136 mmol/L (136-145)
[2021-08-07 05:48] LABS: Alanine Aminotransferase 14 U/L (7-52); Albumin Globulin Ratio 0.8 (0.9-2); Albumin Level 2.3 gm/dl (3.4-5.0); Alkaline Phosphatase 69 U/L (34-104); Aspartate Aminotransferase 37 U/L (13-39); Bilirubin,Total 0.6 mg/dl (0.2-1.0); Globulin 2.9 gm/dl (2.5-4.0); Iron 43 mcg/dl (35-150); Magnesium 1.9 mg/dl (1.7-2.4); Total Protein 5.2 gm/dl (6.0-8.3); Unsaturated Iron Binding Cap < 55 mcg/dl (155-355)
[2021-08-07 06:00] LABS: Folate (Folic Acid) 21.12 ng/ml (>5.38)
[2021-08-07] MEDS: LEVOTHYROXINE SODIUM 88 MCG TABLET PO SCH (06:27)
--- NOTE | 2021-08-07 08:07 | Consultation ---
Date of Consultation August 07, 2021 Assessment & Plan (1) Bacteremia: Pt with multiple positive blood cultures and multiple possible sources of infection. Permcath removal was recommended, with plans to replace at later date. Pt is agreeable, however, is not able to understand or sign consent. Will attempt to discuss with her sister, Romnia. Patient was seen, examined, and chart reviewed. Agree with exam and treatment plan of the Vascular PA. History of Present Illness Reason for Consultation: bacteremia Attending Physician: Jaylene Shi MD History of Present Illness 71 yo f with multiple medical problems, including ischemic cardiomyopathy, hypothyroidism, AUDI, ESRD on HD, anemia, CAD, depression, DMII, admitted with sepsis, seen in consultation today for removal of permcath for HD. Pt currently confused and unable to give accurate hx. States she is currently havingL knee pain and a mild BRUMFIELD. Denies BRUMFIELD, fever, chest pain, SOb, abd pain, N/V, other complaints. Pt has had multiple positive blood cx and has had R IJ permcath for about a month. Allergies Allergy/AdvReac Type Severity Reaction Status Date / Time cyclobenzaprine Allergy Unknown ON MED LIST Verified 08/04/21 17:39 [From Flexeril] Home Medications Medication Instructions Recorded Confirmed Type acetaminophen 325 mg tablet 650 mg PO Q4H PRN 08/04/21 08/04/21 History (Tylenol) atorvastatin 40 mg tablet 80 mg PO QDD 08/04/21 08/04/21 History bisacodyl 10 mg rectal suppository 10 mg [place] DAILY PRN 08/04/21 08/04/21 History darbepoetin jono in polysorbat 60 60 mcg SUBCUT WK 08/04/21 08/04/21 History mcg/0.3 mL (polysorb) subcutaneous pen injector docusate sodium 100 mg capsule 100 mg PO BID 08/04/21 08/04/21 History duloxetine 30 mg capsule,delayed 30 mg PO DAILY 08/04/21 08/04/21 History release furosemide 80 mg tablet (Lasix) 80 mg PO BID 08/04/21 08/04/21 History gabapentin 100 mg capsule 200 mg PO HS 08/04/21 08/04/21 History levothyroxine 88 mcg tablet 88 mcg PO DAILYBB 08/04/21 08/04/21 History magnesium hydroxide 400 mg/5 mL 30 ml PO DAILY PRN 08/04/21 08/04/21 History oral suspension (Milk of Magnesia) midodrine 10 mg tablet 20 mg PO 3XWK 08/04/21 08/04/21 History nystatin 100,000 unit/gram topical 1 applic TOPICAL BID 08/04/21 08/04/21 History powder pantoprazole 40 mg tablet,delayed 40 mg PO BID 08/04/21 08/04/21 History release piperacillin-tazobactam 2.25 gram 2.25 g IV Q8H 08/04/21 08/04/21 History intravenous solution polyethylene glycol 3350 17 17 g PO QDL PRN 08/04/21 08/04/21 History gram/dose oral powder (Miralax) sennosides 8.6 mg-docusate sodium 1 tab-cap PO QDL PRN 08/04/21 08/04/21 History 50 mg tablet (Senokot-S) tamsulosin 0.4 mg capsule (Flomax) 0.4 mg PO HS 08/04/21 08/04/21 History tramadol 50 mg tablet 50 mg PO Q12H PRN 08/04/21 08/04/21 History vitamin B complex and vitamin C 1 cap PO DAILY 08/04/21 08/04/21 History no.20-folic acid 1 mg capsule Patient History Medical History Anemia in chronic renal disease Aortic stenosis Chronic kidney disease requiring chronic dialysis Chronic respiratory failure with hypoxia Coronary artery disease Depression Diabetic peripheral neuropathy History of CVA (cerebrovascular accident) History of gastrointestinal bleeding Hypertension Hypothyroidism Ischemic cardiomyopathy Obesity Obstructive sleep apnea Social History Smoking Status: Never smoker Second Hand Exposure: No; Hx Alcohol Use: No Hx Substance Use: No Preferred Language: Uzbek Communication Ability: Effective Recovery Operator Required: No Beliefs That Will Affect Care: None Current Living Situation: Family Current Living Situation Comment: pt was at a rehab facility previous lives with nephews that dont help her Feels Safe at Home: Yes Assistive Devices: Walker Review of Systems Review of Systems: All systems reviewed & are unremarkable except as noted in HPI & below Physical Exam Constitutional: WD/WN, vitals as above + thin, + disheveled, cooperative and comfortable; not in distress Neck: trachea midline Respiratory: normal respiratory effort, lungs clear to auscultation Auscultation: + diminished lung sounds Cardiovascular: Rate/Rhythm: regular rate and regular rhythm Vessels: posterior tibial pulses present, dorsalis pedis pulses present and radial pulses present; + abnormal peripheral pulses Extremities: normal capillary refill and + vascular access device (R IJ permcath, nontender); no edema Gastrointestinal (Abdomen): Inspection/Auscultation: abdomen normal to inspection and normal bowel sounds Percussion/Palpation: abdomen soft; abdomen nontender Musculoskeletal: no cyanosis or clubbing, extremities motor strength 5/5 Skin: no rashes, warm and dry (L knee abrasion) + ulcer Neurologic: moves all extremities, awake and + confused; no focal motor de ficits Psychiatric: Orientation: alert and oriented to person; + not oriented to place and + not oriented to time Eye Contact: + poor eye contact Results & Data ([facility]) Vital Signs (Past 12 Hours) Vital Signs Temp Pulse Resp BP Pulse Ox 08/07/21 07:39 105 H 08/07/21 07:28 36.7 C 101 H 17 97 08/07/21 07:22 98 H 23 109/65 96 08/07/21 07:00 98 H 12 106/71 99 08/07/21 06:30 97 H 15 103/63 100 08/07/21 06:04 98 H 19 114/74 96 08/07/21 06:00 102 H 19 93 08/07/21 05:30 99 H 21 109/72 96 08/07/21 05:06 104 H 23 109/54 L 93 08/07/21 05:00 100 H 18 97 08/07/21 04:34 99 H 19 89/60 L 97 08/07/21 04:32 99 H 15 70/45 L 95 08/07/21 04:30 100 H 17 72/53 L 94 08/07/21 04:03 99 H 14 92/56 L 94 08/07/21 04:01 100 H 14 85/51 L 92 08/07/21 04:00 98 H 13 94 08/07/21 03:33 36.8 C 105 H 15 104/63 94 08/07/21 03:00 99 H 16 93/52 L 91 08/07/21 02:30 99 H 13 89/53 L 92 08/07/21 02:00 99 H 17 82/59 L 92 08/07/21 01:30 98 H 14 101/59 L 92 08/07/21 01:13 99 H 13 101/59 L 93 08/07/21 01:12 95 H 15 97/57 L 08/07/21 01:00 101 H 17 110/67 92 08/07/21 00:30 99 H 13 111/65 93 08/07/21 00:00 101 H 15 105/64 91 08/06/21 23:30 102 H 14 91/58 L 92 08/06/21 23:00 106 H 16 86/56 L 92 08/06/21 22:30 107 H 16 106/62 08/06/21 22:00 105 H 15 101/64 94 08/06/21 21:30 105 H 17 105/60 95 08/06/21 21:00 105 H 16 97/68 L 94 08/06/21 20:43 113 H 20 107/72 08/06/21 20:30 110 H 15 84/59 L 08/06/21 20:00 109 H 17 120/71
[2021-08-07] MEDS: ACETAMINOPHEN 325 MG TAB PO PRN (08:10)
[2021-08-07] MEDS ORDERED: LIDOCAINE 1% LOCAL 20 ML VIAL ONE (09:38)
--- NOTE | 2021-08-07 09:40 | Critical Care Progress Note ---
Date of Service August 07, 2021 Assessment & Plan (1) Admitted to intensive care unit: Plan: NEURO - * Altered mental status: Improved: continues to wax and wane * CT head demonstrated no acute findings. CARDIAC/VASCULAR - * Hypotension: resolved * improved after 100 mg hydrocortisone x 1 08/07, cortisol 18 * Monitor on telemetry. Cardiomyopathy - RESPIRATORY - * Chronic hypoxic respiratory failure, COPD, AUDI: Resolved GI/NUTRITION - * Advance diet as tolerated * home protonix RENAL/LYTES - * End-stage renal disease on hemodialysis (Thursday//Thursday): * nephrology following. * Appreciate their ongoing guidance. * Electrolytes appropriate. - * UTI: * Gamma hemolytic strep. * Garcia discontinued ENDO - * IDDM: * BSGs per unit protocol. ISS --> gtt per unit policy. * Hypothyroidism: * Continue current outpatient PO Rx HEME - * Anemia of chronic disease (ESRD) ID - * Severe sepsis w/ septic shock: resolved * Multifactorial: heal wound likely polymicrobial, * Perma-cath removal by vascular surgery today * Orthopedic evaluation anticipated * zosyn should treat UTI: * Bacteremia: * MSSA * Antibiotics dosing by pharmacy appreciated. * Continue zosyn and vancomycin until wounds further classified LINES/IV ACCESS - * PIVs x2 * RIGHT IJ Permacath d/c today * LEFT Femoral CVL - discontinue today DVT PROPHYLAXIS - * heparin 5000 BID, on hold this am for procedure then continue * SCDs CODE STATUS - * Patient w/ POLST form stating DNR/DNI status. * Patient's sister, Romina Boswell ([phone]) * DNR/DNI: would re-address goals of care frequently Discussed on multidisciplinary rounds (2) Severe sepsis: (3) AMS (altered mental status): (4) Hypoxia: (5) Chronic kidney disease requiring chronic dialysis: (6) Septic shock: (7) Acute osteomyelitis of right calcaneus: (8) Discitis of thoracic region: (9) UTI (urinary tract infection): Admission and Anticipated Discharge Date Admission Date: August 04, 2021 Subjective Complaining of pain, unable to adequately describe or localize. Off pressors as of 0300 Physical Exam Physical Exam: General: uncomfortable. Skin: Warm, dry, Head: Atraumatic Ears, nose, mouth and throat: airway patent Cardiovascular: Normal peripheral perfusion Respiratory: no respiratory distress Gastrointestinal: Non distended Musculoskeletal: No deformity Results & Data Results & Data ([facility]) Vital Signs (Past 12 Hours) Vital Signs Temp Pulse Resp BP Pulse Ox 08/07/21 07:39 105 H 08/07/21 07:28 36.7 C 101 H 17 97 08/07/21 07:22 98 H 23 109/65 96 08/07/21 07:00 98 H 12 106/71 99 08/07/21 06:30 97 H 15 103/63 100 08/07/21 06:04 98 H 19 114/74 96 08/07/21 06:00 102 H 19 93 08/07/21 05:30 99 H 21 109/72 96 08/07/21 05:06 104 H 23 109/54 L 93 08/07/21 05:00 100 H 18 97 08/07/21 04:34 99 H 19 89/60 L 97 08/07/21 04:32 99 H 15 70/45 L 95 08/07/21 04:30 100 H 17 72/53 L 94 08/07/21 04:03 99 H 14 92/56 L 94 08/07/21 04:01 100 H 14 85/51 L 92 08/07/21 04:00 98 H 13 94 08/07/21 03:33 36.8 C 105 H 15 104/63 94 08/07/21 03:00 99 H 16 93/52 L 91 08/07/21 02:30 99 H 13 89/53 L 92 08/07/21 02:00 99 H 17 82/59 L 92 08/07/21 01:30 98 H 14 101/59 L 92 08/07/21 01:13 99 H 13 101/59 L 93 08/07/21 01:12 95 H 15 97/57 L 08/07/21 01:00 101 H 17 110/67 92 08/07/21 00:30 99 H 13 111/65 93 08/07/21 00:00 101 H 15 105/64 91 08/06/21 23:30 102 H 14 91/58 L 92 08/06/21 23:00 106 H 16 86/56 L 92 08/06/21 22:30 107 H 16 106/62 08/06/21 22:00 105 H 15 101/64 94 08/06/21 21:30 105 H 17 105/60 95 Critical Care Results & Data Vital Signs (Past 12 Hours) Vital Signs Temp Pulse Resp BP Pulse Ox 08/07/21 07:39 105 H 08/07/21 07:28 36.7 C 101 H 17 97 08/07/21 07:22 98 H 23 109/65 96 08/07/21 07:00 98 H 12 106/71 99 08/07/21 06:30 97 H 15 103/63 100 08/07/21 06:04 98 H 19 114/74 96 08/07/21 06:00 102 H 19 93 08/07/21 05:30 99 H 21 109/72 96 08/07/21 05:06 104 H 23 109/54 L 93 08/07/21 05:00 100 H 18 97 08/07/21 04:34 99 H 19 89/60 L 97 08/07/21 04:32 99 H 15 70/45 L 95 08/07/21 04:30 100 H 17 72/53 L 94 08/07/21 04:03 99 H 14 92/56 L 94 08/07/21 04:01 100 H 14 85/51 L 92 08/07/21 04:00 98 H 13 94 08/07/21 03:33 36.8 C 105 H 15 104/63 94 08/07/21 03:00 99 H 16 93/52 L 91 08/07/21 02:30 99 H 13 89/53 L 92 08/07/21 02:00 99 H 17 82/59 L 92 08/07/21 01:30 98 H 14 101/59 L 92 08/07/21 01:13 99 H 13 101/59 L 93 08/07/21 01:12 95 H 15 97/57 L 08/07/21 01:00 101 H 17 110/67 92 08/07/21 00:30 99 H 13 111/65 93 08/07/21 00:00 101 H 15 105/64 91 08/06/21 23:30 102 H 14 91/58 L 92 08/06/21 23:00 106 H 16 86/56 L 92 08/06/21 22:30 107 H 16 106/62 08/06/21 22:00 105 H 15 101/64 94 08/06/21 21:30 105 H 17 105/60 95 Lab & Micro Results (Past 24 Hours) RBC 3.44 M/uL (4.2-5.4) L 08/07/21 WBC 9.64 K/uL (4.8-10.8) 08/07/21 Hgb 9.6 g/dL (12.0-16.0) L 08/07/21 Hct 29.6 % (37-47) L 08/07/21 MCV 86.0 fL (80-100) 08/07/21 MCH 27.9 pg (25-34) 08/07/21 MCHC 32.4 g/dL (32-36) 08/07/21 RDW Standard Deviation 57.3 fL (36.4-46.3) H 08/07/21 RDW Coefficient of Variation 18.0 % (11.5-14.5) H 08/07/21 Plt Count 236 K/uL (130-400) 08/07/21 MPV 10.4 fL (7.4-10.4) 08/07/21 Neutrophils (%) (Auto) 68.3 % 08/07/21 Lymphocytes (%) (Auto) 20.7 % 08/07/21 Monocytes # (Auto) 1.01 K/uL (0.11-0.59) H 08/07/21 Eosinophils # (Auto) 0.02 K/uL (0-0.5) 08/07/21 Immature Granulocyte % (Auto) 0.2 % 08/07/21 Neutrophils # (Auto) 6.58 K/uL (1.4-6.5) H 08/07/21 Lymphocytes # (Auto) 2.00 K/uL (1.2-3.4) 08/07/21 Monocytes # (Auto) 1.01 K/uL (0.11-0.59) H 08/07/21 Eosinophils # (Auto) 0.02 K/uL (0-0.5) 08/07/21 Basophils # (Auto) 0.01 K/uL (0-0.2) 08/07/21 Immature Granulocyte # (Auto) 0.02 K/uL (0.00-0.02) 08/07/21 Na 136 mmol/L (136-145) 08/07/21 K 3.5 mmol/L (3.5-5.1) 08/07/21 Cl 99 mmol/L (98-107) 08/07/21 CO2 28 mmol/L (21-32) 08/07/21 Anion Gap 9 (3-11) 08/07/21 BUN 15 mg/dl (6-23) 08/07/21 Creatinine 2.08 mg/dl (0.6-1.2) H 08/07/21 Estimated GFR ( Amer) 27.3 ml/min 08/07/21 Estimated GFR (Non-Af Amer) 23.5 ml/min 08/07/21 BUN/Creatinine Ratio 7.2 (10-20) L 08/07/21 Glu 127 mg/dl (70-99(Fasting)) H 08/07/21 Ca 7.9 mg/dl (8.5-10.1) L 08/07/21 Total Bilirubin 0.6 mg/dl (0.2-1.0) 08/07/21 AST 37 U/L (13-39) 08/07/21 ALT 14 U/L (7-52) 08/07/21 Alkaline Phosphatase 69 U/L (34-104) 08/07/21 TP 5.2 gm/dl (6.0-8.3) L 08/07/21 Albumin 2.3 gm/dl (3.4-5.0) L 08/07/21 Globulin 2.9 gm/dl (2.5-4.0) 08/07/21 Albumin/Globulin Ratio 0.8 (0.9-2) L 08/07/21 Mg 1.9 mg/dl (1.7-2.4) 08/07/21 04:34 08/07/21 Calcium Level 7.9 mg/dl (8.5-10.1) L 08/07/21 04:34 08/07/21 Microbiology 08/04/21 17:18 Aerobic Blood Culture - Preliminary Blood Staphylococcus aureus Anaerobic Blood Culture - Preliminary No growth in Anaerobic bottle after 48 hours. 08/04/21 17:20 Aerobic Blood Culture - Preliminary Blood Staphylococcus aureus Anaerobic Blood Culture - Preliminary No growth in Anaerobic bottle after 48 hours. 08/05/21 13:18 Aerobic Blood Culture - Preliminary Blood No growth in Aerobic bottle after 24 hours. Anaerobic Blood Culture - Preliminary No growth in Anaerobic bottle after 24 hours. 08/04/21 19:10 Urine Culture - Preliminary Urine,Straight Cath Gamma hemolytic strep.species 08/05/21 10:26 Aerobic Blood Culture - Preliminary Blood No growth in Aerobic bottle after 24 hours. Anaerobic Blood Culture - Preliminary No growth in Anaerobic bottle after 24 hours. 08/05/21 10:21 Aerobic Blood Culture - Preliminary Blood No growth in Aerobic bottle after 24 hours. Anaerobic Blood Culture - Preliminary No growth in Anaerobic bottle after 24 hours. I & O Totals 24 Hours 08/06/21 08/07/21 08/08/21 06:59 06:59 06:59 Intake Total 3615.309 / 3615.309 1343.414 / 1343.414 Output Total 578 / 578 1100 / 1100 Balance 3037.309 / 3037.309 243.414 / 243.414 Cumulative 08/04/21 16:59 thru 08/07/21 06:30 Intake Total 6543.816 Output Total 1977 Balance 4565.816 RT Ventilator Mngmt (Last Documented) Ventilator Ordered Settings Respiratory Rate 17 08/07/21 07:28 Ventilator - PT Measurements Respiratory Rate 17 Coding Level of Care Code 62114 Subseq Hosp Care Lvl 3 Diagnoses Admitted to intensive care unit Z78.9 Severe sepsis A41.9; R65.20 AMS (altered mental status) R41.82 Altered mental status type: unspecified Hypoxia R09.02 Chronic kidney disease requiring chronic dialysis N18.6; Z99.2 Septic shock A41.9; R65.21 Acute osteomyelitis of right calcaneus M86.171 Discitis of thoracic region M46.44 UTI (urinary tract infection) N39.0 (1) AMS (altered mental status) Altered mental status type: unspecified Qualified Code(s): R41.82 - Altered mental status, unspecified
--- NOTE | 2021-08-07 09:45 | History & Physical Bridge Note ---
Date of Service August 07, 2021 History & Physical Bridge Note Patient for removal of permcath. I have discussed the risks options and benefits of the procedure with the patient's sister. The patient's sister understands the risks options and benefits and agrees to the procedure. I have examined the patient, reviewed the History & Physical and in the interval since the performance of the History & Physical I have noted the following changes of clinical significance: no changes noted
--- NOTE | 2021-08-07 10:13 | Operative Report ---
Post Operative Report Pre & Post Diagnosis Operation Date: 08/07/21 09:10 Pre-Op Diagnosis: sepsis Post-Op Diagnosis: sepsis I identified the patient and participated in the time-out.: Yes Procedure Operation Date: 08/07/21 09:10 Actual Procedures p Perm Catheter Removal(Right) - Inocencio Pablo MD Surgeon Inocencio Pablo MD [employer] none Estimated Blood Loss 0 Findings Consistent with Post-Op Diagnosis Specimens tip for culture Anesthesia Type Local Complications none Disposition Accompanied Patient To Recovery: No Disposition: Recovery Room Indications This is a 71-year-old female with sepsis. She has multiple blood cultures which were positive and she has multiple areas of possible infection. What happens to be her PermCath. Is recommended to remove the PermCath. Risks options and benefits were discussed with the patient's sister who agreed to go ahead with the procedure. Description of Procedure The patient was taken to the angio suite and placed in the supine position. The patient was identified and a timeout performed. The right side of the neck, chest wall and catheter were prepped and draped in a sterile manner. Local anesthesia was then accomplished. Using sharp and blunt dissection, the cuff of the permcath was freed up from the surrounding fibrous tissue. The permcath and cuff were completely removed. Pressure was then applied and adequate hemostasis was obtained. A sterile dressing was then applied. The patient left the operation room in satisfactory condition and tolerated the procedure well. All needle and sponge counts were correct at the end of the procedure. I attest to the content of the Intraoperative Record and any orders documented therein. Any exceptions are noted below.
[2021-08-07] MEDS: HEPARIN SOD 5,000 UNIT/0.5 ML VIAL SQ SCH ×2 (10:23→20:21)
--- NOTE | 2021-08-07 10:27 | Nephrology Progress Note ---
Date of Service August 07, 2021 Assessment & Plan Admission and Anticipated Discharge Date Admission Date: August 04, 2021 Subjective Subjective S--feels weak and c/o some pain. hard to understand. CVC is out. PHYSICAL EXAMINATION: GENERAL: Elderly white female who is quite sick at this time and is on pressors and she is in ICU. HEENT: Mucous membrane is moist. NECK: Supple. No jugular venous distention. CHEST: Bilaterally clear to auscultation. Limited quality of the exam secondary to lack of inspiratory effort. CARDIOVASCULAR: S1 and S2 tachycardic, regular. No murmur heard. ABDOMEN: Soft, nontender. EXTREMITIES: Show no edema. LABORATORY TEST: Blood culture is positive for S Aureus. CT chest and chest x- ray did not show any overt pulmonary edema or congestive heart failure. There is some possibility of diskitis, some diffuse ground-glass opacity bilaterally in the lung. Abdomen and pelvis CT scan showed mild pericholecystic infiltration. Gallbladder ultrasound already done and there was not any major abnormal finding. Calcaneus x-ray is suggestive of osteomyelitis. ASSESSMENT AND PLAN: A 71-year-old female who presented to the hospital from the rehabilitation hospital where she was getting rehabilitation following a prolonged hospitalization. I have been consulted for dialysis management. She is a new start of dialysis within the last month with acute renal failure in the setting of extensive medical problems and progression of her underlying CKD IV. End-stage renal disease: She does not have any evidence of overt fluid overload or congestive heart failure. next HD ousmane be after new CVC placed or if emergent will do by temp Line Bacteremia--S Aureus. HD cath out today. Will do line holiday for next few days. Also findings suggestive of osteomyelitis in her calcaneus as well as possible diskitis. We will also need to repeat blood cultures on a daily basis for the next few days. Consider infectious disease consult given complicated infection situation here to help guide the choice and the duration of the antibiotics. BC from 08/05 is neggative. Consider ruling out endocarditis also. Results & Data ([facility]) Vital Signs (Past 12 Hours) Vital Signs Temp Pulse Pulse Resp BP BP Pulse Ox 08/07/21 10:10 97 H 18 110/69 100 08/07/21 10:05 98 H 18 118/74 100 08/07/21 10:00 97 H 18 112/66 100 08/07/21 09:40 36.7 C 102 H 20 106/66 97 08/07/21 09:30 106/66 08/07/21 09:04 101/63 08/07/21 08:30 108/67 08/07/21 08:00 102/73 08/07/21 07:43 109/64 08/07/21 07:42 105 H 26 H 91/59 L 96 08/07/21 07:39 105 H 08/07/21 07:28 36.7 C 101 H 17 97 08/07/21 07:22 98 H 23 109/65 96 08/07/21 07:00 98 H 12 106/71 99 08/07/21 06:30 97 H 15 103/63 100 08/07/21 06:04 98 H 19 114/74 96 08/07/21 06:00 102 H 19 93 08/07/21 05:30 99 H 21 109/72 96 08/07/21 05:06 104 H 23 109/54 L 93 08/07/21 05:00 100 H 18 97 08/07/21 04:34 99 H 19 89/60 L 97 08/07/21 04:32 99 H 15 70/45 L 95 08/07/21 04:30 100 H 17 72/53 L 94 08/07/21 04:03 99 H 14 92/56 L 94 08/07/21 04:01 100 H 14 85/51 L 92 08/07/21 04:00 98 H 13 94 08/07/21 03:33 36.8 C 105 H 15 104/63 94 08/07/21 03:00 99 H 16 93/52 L 91 08/07/21 02:30 99 H 13 89/53 L 92 08/07/21 02:00 99 H 17 82/59 L 92 08/07/21 01:30 98 H 14 101/59 L 92 08/07/21 01:13 99 H 13 101/59 L 93 08/07/21 01:12 95 H 15 97/57 L 08/07/21 01:00 101 H 17 110/67 92 08/07/21 00:30 99 H 13 111/65 93 08/07/21 00:00 101 H 15 105/64 91 08/06/21 23:30 102 H 14 91/58 L 92 08/06/21 23:00 106 H 16 86/56 L 92 08/06/21 22:30 107 H 16 106/62
[2021-08-07] MEDS: oxyCODONE HCL IR 5 MG TAB (IMMEDIATE RELEASE) PO PRN ×2 (10:30→19:41)
[2021-08-07] MEDS: DOCUSATE SODIUM 100 MG CAP PO SCH ×2 (10:41→20:20)
[2021-08-07] MEDS: DULoxetine HCL 30 MG CAP PO SCH (10:41)
[2021-08-07] MEDS: PANTOprazole 40 MG TAB PO SCH ×2 (10:41→20:21)
[2021-08-07] MEDS: NYSTATIN SUSP 500,000 U/5 ML UDC PO SCH ×4 (10:42→20:21)
[2021-08-07] MEDS ORDERED: fentaNYL citrate 100 MCG/2 ML VIAL IV STA (11:42)
[2021-08-07] MEDS ORDERED: VANCOMYCIN HCL 250 MG in DEXTROSE 5% 100 ML IV ONE (12:00)
[2021-08-07] MEDS: MIDODRINE HCL 10 MG TAB PO SCH ×2 (14:38→20:21)
--- NOTE | 2021-08-07 14:42 | Orthopedic Consultation ---
Date of Consultation August 07, 2021 Assessment & Plan (1) Acute osteomyelitis of right calcaneus: Skin necrosis from pressure wound right heel. Possible osteomyelitis per recent calcaneus film. Patient seen by Dr. Nur today. Plan for MRI of the right foot. Consider waffle boots to relieve pressure off of the heels. We will also plan on ordering a bilateral duplex scan as well. History of Present Illness Reason for Consultation: Necrosis right heel. Question osteomyelitis calcaneus. Attending Physician: Jaylene Shi MD History of Present Illness 71 yo f with multiple medical problems, including ischemic cardiomyopathy, hypothyroidism, AUDI, ESRD on HD, anemia, CAD, depression, DM 2 , admitted with sepsis several days ago. Patient was noted as having skin breakdown greater on the right heel than the left. X-ray of the right foot was performed and noted questionable osteomyelitis of the calcaneus. Patient was stabilized over the last several days and we have been asked to see her for her possible osteomyelitis of her right heel. Patient is currently awake and in bed. She is pleasant but mildly confused at times. She does answer some questions appropriately. She states that she is been dealing with her right heel necrosis for approximately a year. She offers no other history at this time. She states that the heel does not cause her much in the way of pain. Allergies Allergy/AdvReac Type Severity Reaction Status Date / Time cyclobenzaprine Allergy Unknown ON MED LIST Verified 08/04/21 17:39 [From Flexeril] Home Medications Medication Instructions Recorded Confirmed Type acetaminophen 325 mg tablet 650 mg PO Q4H PRN 08/04/21 08/04/21 History (Tylenol) atorvastatin 40 mg tablet 80 mg PO QDD 08/04/21 08/04/21 History bisacodyl 10 mg rectal suppository 10 mg ME DAILY PRN 08/04/21 08/04/21 History darbepoetin jono in polysorbat 60 60 mcg SUBCUT WK 08/04/21 08/04/21 History mcg/0.3 mL (polysorb) subcutaneous pen injector docusate sodium 100 mg capsule 100 mg PO BID 08/04/21 08/04/21 History duloxetine 30 mg capsule,delayed 30 mg PO DAILY 08/04/21 08/04/21 History release furosemide 80 mg tablet (Lasix) 80 mg PO BID 08/04/21 08/04/21 History gabapentin 100 mg capsule 200 mg PO HS 08/04/21 08/04/21 History levothyroxine 88 mcg tablet 88 mcg PO DAILYBB 08/04/21 08/04/21 History magnesium hydroxide 400 mg/5 mL 30 ml PO DAILY PRN 08/04/21 08/04/21 History oral suspension (Milk of Magnesia) midodrine 10 mg tablet 20 mg PO 3XWK 08/04/21 08/04/21 History nystatin 100,000 unit/gram topical 1 applic TOPICAL BID 08/04/21 08/04/21 History powder pantoprazole 40 mg tablet,delayed 40 mg PO BID 08/04/21 08/04/21 History release piperacillin-tazobactam 2.25 gram 2.25 g IV Q8H 08/04/21 08/04/21 History intravenous solution polyethylene glycol 3350 17 17 g PO QDL PRN 08/04/21 08/04/21 History gram/dose oral powder (Miralax) sennosides 8.6 mg-docusate sodium 1 tab-cap PO QDL PRN 08/04/21 08/04/21 History 50 mg tablet (Senokot-S) tamsulosin 0.4 mg capsule (Flomax) 0.4 mg PO HS 08/04/21 08/04/21 History tramadol 50 mg tablet 50 mg PO Q12H PRN 08/04/21 08/04/21 History vitamin B complex and vitamin C 1 cap PO DAILY 08/04/21 08/04/21 History no.20-folic acid 1 mg capsule Patient History Medical History Anemia in chronic renal disease Aortic stenosis Chronic kidney disease requiring chronic dialysis Chronic respiratory failure with hypoxia Coronary artery disease Depression Diabetic peripheral neuropathy History of CVA (cerebrovascular accident) History of gastrointestinal bleeding Hypertension Hypothyroidism Ischemic cardiomyopathy Obesity Obstructive sleep apnea Social History Smoking Status: Never smoker Second Hand Exposure: No; Hx Alcohol Use: No Hx Substance Use: No Preferred Language: Armenian Communication Ability: Effective Noise Tester Required: No Beliefs That Will Affect Care: None Current Living Situation: Family Current Living Situation Comment: pt was at a rehab facility previous lives with nephews that dont help her Feels Safe at Home: Yes Assistive Devices: Walker Physical Exam Physical Exam: Patient is a 71-year-old white female. Pleasant but mildly confused at times. No acute distress. Patient has some noted Optifoam dressings on both heels. Removing the Optifoam on the left heel shows some early stages of breakdown of the skin showing a small darkened area over the posterior lateral portion of the heel. There are no open wounds. Removing the multiple Optifoam's on the right heel reveals moderate skin breakdown with an area of necrosis that is approximately 2 cm in width by 1 cm in length. This is at the most posterior portion of the heel. More on the plantar surface that she has some open skin breakdown noted with a yellow eschar around the edges with some mild odor. Mild erythema noted. Optifoam dressings placed back on with the noted Aquacel Ag. I cannot appreciate a palpable dorsalis pedis pulse. She denies numbness into her feet and states her sensation is intact. Results & Data ([facility]) Vital Signs (Past 12 Hours) Vital Signs Temp Pulse Pulse Resp BP BP Pulse Ox 08/07/21 12:30 92/54 L 08/07/21 12:15 92/58 L 08/07/21 12:00 86/56 L 08/07/21 11:30 89/63 L 08/07/21 11:14 93/62 L 08/07/21 11:00 94/49 L 08/07/21 10:32 105/52 L 08/07/21 10:16 99/64 L 08/07/21 10:10 97 H 18 110/69 100 08/07/21 10:05 98 H 18 118/74 100 08/07/21 10:00 101 H 18 112/66 100 08/07/21 09:40 36.7 C 102 H 20 106/66 97 08/07/21 09:30 106/66 08/07/21 09:04 101/63 08/07/21 08:30 108/67 08/07/21 08:00 102/73 08/07/21 07:43 109/64 08/07/21 07:42 105 H 26 H 91/59 L 96 08/07/21 07:39 105 H 08/07/21 07:28 36.7 C 101 H 17 97 08/07/21 07:22 98 H 23 109/65 96 08/07/21 07:00 98 H 12 106/71 99 08/07/21 06:30 97 H 15 103/63 100 08/07/21 06:04 98 H 19 114/74 96 08/07/21 06:00 102 H 19 93 08/07/21 05:30 99 H 21 109/72 96 08/07/21 05:06 104 H 23 109/54 L 93 08/07/21 05:00 100 H 18 97 08/07/21 04:34 99 H 19 89/60 L 97 08/07/21 04:32 99 H 15 70/45 L 95 08/07/21 04:30 100 H 17 72/53 L 94 08/07/21 04:03 99 H 14 92/56 L 94 08/07/21 04:01 100 H 14 85/51 L 92 08/07/21 04:00 98 H 13 94 08/07/21 03:33 36.8 C 105 H 15 104/63 94 08/07/21 03:00 99 H 16 93/52 L 91 Diagnostic Findings Patient:SHANEL HARDY Admit Date:08/04/21 MR#:[id number] Address1:[address] [place] [address] Acct ID:[id number] Address2: Date:1950 [facility] Zip:[place] [address] Age:71 Location:ED Sex:F Room/Bed: Att Phy: Diagnosis:AMS, FEVER, POSSIBLE SEPSIS Jillian Phy:[facility] Date:08/04/21 Fam Phy: Interpreting Phy:Abram Pinon MDAdmit Phy: Ordering Phy:Nigel Begum DO cc: ~ XR calcaneus RT min 2V CLINICAL HISTORY: ? osteo COMPARISON: None FINDINGS: Best shown on axial projection, there is probable bony erosion of the posterior aspect of the right calcaneus. There is an overlying suspected wound with soft tissue swelling. Osteopenia is noted. There is plantar calcaneal spurring. Extensive degenerative changes of the right tibiotalar and subtalar joints are present. There is extensive vascular calcification. IMPRESSION: 1. Probable erosion of the posterior aspect of the calcaneus with overlying wound. This is suggestive of osteomyelitis. 2. Extensive degenerative changes of the right ankle. Osteopenia.
[2021-08-07] MEDS: ATORVASTATIN 40 MG TAB PO SCH (17:00)
--- NOTE | 2021-08-07 17:39 | Hospitalist Progress Note ---
Date of Service August 07, 2021 Assessment & Plan (1) Septic shock: Plan: With MSSA Septicemia BCxs with MSSA from 08/04, repeat BCxs 08/05 now also with 1/2 growing gram-positive cocci in clusters Ur cx with Enterococcus faecalis sensitive to ampicillin, daptomycin, penici llin, vancomycin Wound culture from right foot growing MSSA Source - HD catheter vs SBE vs diskitis spine/osteomyelitis of foot vs UTI Now off levophed but blood pressures are soft Continue midodrine 10 mg p.o. 3 times daily daily rather than just on dialysis days Random cortisol level 18 but did receive 1 dose of IV hydrocortisone on 08/06 ECHO no valvular vegetation Hemodialysis catheter removed on 08/07 and catheter tip sent for culture -Plan to repeat blood cultures again on the morning of 08/08 -Continue zosyn and vancomycin for broad-spectrum coverage due to diabetic foot wound as well as MSSA bacteremia -consult Ortho re OM of heel to see about debridement-plan for MRI of the foot and possible debridement on Thursday (2) Bacteremia: Plan: as above (3) Discitis of thoracic region: Plan: Suspected based on CT chest findings. May need MRI t-spine but does not really complain of pain at the site-does not seem unlikely source continue with IV abx as above (4) Acute osteomyelitis of right calcaneus: Plan: Suspected based on plain films. WIth open draining foul smelling wound on right heel Wound care saw in consult, recs appreciated. Ultimately will need debridement as above with orthopedics Continue IV zosyn/vanco. MRI foot pending offload pressure WOund cx growing MSSA (5) Acute metabolic encephalopathy: Plan: 2nd to sepsis/septic shock. Supportive care. ongoing (6) UTI (urinary tract infection): Plan: ua suspicious for such. urine cx with Enterococcus faecalis as above Continue IV antibiotic therapy. (7) Depression: Plan: Recently on 120mg of cymbalta. Dose reduced while patient was at [facility]. Continue 30mg daily. (8) Coronary artery disease: Plan: History uncertain. With WMAs on ECHO here Mild troponin elevation c/w myocardial demand ischemia rather than ACS. Cardiology consult appreciated continue statin, not on ASA, beta noel-had recent GI bleed and should not be on antiplatelets right now (9) Hypertension: Plan: lasix on hold BPs low as above with shock (10) Diabetic peripheral neuropathy: Plan: Hold gabapentin in light of acute metabolic encephalopathy. Cont cymbalta. (11) Chronic kidney disease requiring chronic dialysis: Plan: Date of HD initiation uncertain but she reports it was approximately 3 weeks ago while hospitalized in [place]. [facility] consulted for HD needs. Hemodialysis catheter removed on 08/07 due to bacteremia s/p HD on 08/06 On a line holiday for couple of days as per nephrology, will need a new temporary line versus new PermCath prior to next dialysis session Follow BMP (12) Obesity: Plan: BMI 30 (13) Obstructive sleep apnea: Plan: History of. Not on CPAP by report. (14) Hypothyroidism: Plan: TSH wnl. Continue levothyroxine 88mcg daily. (15) Anemia in chronic renal disease: Plan: Hb 9.6 this am and stable. CBC am. Iron studies show normal serum iron, transferrin sat not performed B12 and folate normal (16) Chronic respiratory failure with hypoxia: Plan: 2L NC 02 at baseline. (17) Hypomagnesemia: Plan: replaced and normalized (18) Abdominal pain: Plan: CT a/p with ?pericholecystic fluid. RUQ u/s without findings to suggest acute cholecystitis. Lower abd pain may be due to constipation (moderate stool in rectum on CT). Dulcolax suppox x 1 was given. No further abdominal pain (19) Coagulopathy: Plan: INR 1.4. No evidence of DIC. Liver disease? vitamin K deficiency? other? repeat INR now 1.3 consider vit K supplementation. (20) History of GI bleed: Plan: recent AVM bleeding/UGI bleed as per reports from hospitalization in [place] continue PPI bid (21) Candidiasis of mouth and esophagus: Plan: nystatin 5cc qid swish/spit. (22) Hyperglycemia: Plan: Hba1c 5.6%, but may be spurious due to anemia. Significant hyperglycemia now improved Cont ICU glycemic protocol. (23) Ischemic cardiomyopathy: Plan: noted to have EF 30-35% on ECHO with WMAs, mod-severe , elevated RVSP not volume overloaded holding home lasix BPs cannot tolerate beta noel or hydralazine/isosorbide and renal function can't handle ACEi/ARB (24) Aortic stenosis: Plan: mod-severe on ECHO here (25) DVT prophylaxis: Plan: Heparin SQ Plan: Dispo-continued stay in ICU Admission and Anticipated Discharge Date Admission Date: August 04, 2021 Subjective Patient feeling better today is much more alert and awake and talkative. She was weaned off Levophed early this morning but blood pressures remain soft with maps just around or under 65. She is eating when I saw her. Denies nausea, denies chest pain or shortness of breath. She had her hemodialysis catheter removed in the operating room this morning. She also had her left femoral central venous catheter removed. I discussed her case with orthopedics PA and big data software engineer. Review of Systems Review of Systems: All systems reviewed & are unremarkable except as noted in HPI & below Physical Exam Constitutional: WD/WN, vitals as above Eyes: + anicteric sclerae Neck: trachea midline, no thyromegaly Respiratory: normal respiratory effort, lungs clear to auscultation Cardiovascular: Rate/Rhythm: regular rate and regular rhythm Heart Sounds: + murmur (3/6 STAN at RUSB) Chest (Breasts): Chest: + abnormal inspection of chest (Incisional wound right anterior chest clean dry intact) Gastrointestinal (Abdomen): normal bowel sounds, soft, nontender, no hepatosplenomegaly Musculoskeletal: Extremities: extremities normal to inspection; no cyanosis and no clubbing Skin: + wound (rt heel open wound,purulent foul smelling drainage) Neurologic: moves all extremities and awake; no focal motor deficits Psychiatric: Orientation: alert, oriented to person and cooperative Lymphatic: no lymphedema Results & Data Results & Data ([facility]) Vital Signs (Past 12 Hours) Vital Signs Temp Pulse Pulse Resp BP BP Pulse Ox 08/07/21 16:00 107 H 08/07/21 15:41 97/64 L 08/07/21 15:15 83/55 L 08/07/21 14:28 81/53 L 08/07/21 13:30 72/47 L 08/07/21 13:00 73/63 L 08/07/21 12:47 86/59 L 08/07/21 12:45 77/57 L 08/07/21 12:30 92/54 L 08/07/21 12:15 92/58 L 08/07/21 12:00 86/56 L 08/07/21 11:30 89/63 L 08/07/21 11:14 93/62 L 08/07/21 11:00 94/49 L 08/07/21 10:32 105/52 L 08/07/21 10:16 99/64 L 08/07/21 10:10 97 H 18 110/69 100 08/07/21 10:05 98 H 18 118/74 100 08/07/21 10:00 101 H 18 112/66 100 08/07/21 09:40 36.7 C 102 H 20 106/66 97 08/07/21 09:30 106/66 08/07/21 09:04 101/63 08/07/21 08:30 108/67 08/07/21 08:00 102/73 08/07/21 07:43 109/64 08/07/21 07:42 105 H 26 H 91/59 L 96 08/07/21 07:39 105 H 08/07/21 07:28 36.7 C 101 H 17 97 08/07/21 07:22 98 H 23 109/65 96 08/07/21 07:00 98 H 12 106/71 99 08/07/21 06:30 97 H 15 103/63 100 08/07/21 06:04 98 H 19 114/74 96 08/07/21 06:00 102 H 19 93 Laboratory Results 08/07/21 08/07/21 08/07/21 Range/Units 16:40 11:53 08:06 WBC (4.8-10.8) K/uL RBC (4.2-5.4) M/uL Hgb (12.0-16.0) g/dL Hct (37-47) % MCV (80-100) fL MCH (25-34) pg MCHC (32-36) g/dL RDW Std Deviation (36.4-46.3) fL RDW Coeff of Juno (11.5-14.5) % Plt Count (130-400) K/uL MPV (7.4-10.4) fL Immature Gran % (Auto) % Neut % (Auto) % Lymph % (Auto) % [place] % (Auto) % Eos % (Auto) % Baso % (Auto) % Neut # (Auto) (1.4-6.5) K/uL Lymph # (Auto) (1.2-3.4) K/uL [place] # (Auto) (0.11-0.59) K/uL Eos # (Auto) (0-0.5) K/uL Baso # (Auto) (0-0.2) K/uL Immature Gran # (Auto) (0.00-0.02) K/uL Sodium (136-145) mmol/L Potassium (3.5-5.1) mmol/L Chloride (98-107) mmol/L Carbon Dioxide (21-32) mmol/L Anion Gap (3-11) BUN (6-23) mg/dl Creatinine (0.6-1.2) mg/dl Est Cr Clr Drug Dosing ml/min Est GFR ( Amer) ml/min Est GFR (Non-Af Amer) ml/min BUN/Creatinine Ratio (10-20) Glucose (70-99(Fasting)) mg/dl POC Glucose 165 H 105 H 117 H (70-99) mg/dl POC Glucose (other) (70-99) mg/dl Calcium (8.5-10.1) mg/dl Magnesium (1.7-2.4) mg/dl Iron (35-150) mcg/dl TIBC Unsaturated IBC (155-355) mcg/dl Transferrin % Sat Ferritin (8-388) ng/ml Total Bilirubin (0.2-1.0) mg/dl AST (13-39) U/L ALT (7-52) U/L Alkaline Phosphatase (34-104) U/L Total Protein (6.0-8.3) gm/dl Albumin (3.4-5.0) gm/dl Globulin (2.5-4.0) gm/dl Albumin/Globulin Ratio (0.9-2) Vitamin B12 (180-914) pg/ml Folate (>5.38) ng/ml Random Vancomycin (10-20) mcg/ml 08/07/21 08/07/21 08/07/21 Range/Units 04:34 04:34 04:34 WBC 9.64 (4.8-10.8) K/uL RBC 3.44 L (4.2-5.4) M/uL Hgb 9.6 L (12.0-16.0) g/dL Hct 29.6 L (37-47) % MCV 86.0 (80-100) fL MCH 27.9 (25-34) pg MCHC 32.4 (32-36) g/dL RDW Std Deviation 57.3 H (36.4-46.3) fL RDW Coeff of Juno 18.0 H (11.5-14.5) % Plt Count 236 (130-400) K/uL MPV 10.4 (7.4-10.4) fL Immature Gran % (Auto) 0.2 % Neut % (Auto) 68.3 % Lymph % (Auto) 20.7 % [place] % (Auto) 10.5 % Eos % (Auto) 0.2 % Baso % (Auto) 0.1 % Neut # (Auto) 6.58 H (1.4-6.5) K/uL Lymph # (Auto) 2.00 (1.2-3.4) K/uL [place] # (Auto) 1.01 H (0.11-0.59) K/uL Eos # (Auto) 0.02 (0-0.5) K/uL Baso # (Auto) 0.01 (0-0.2) K/uL Immature Gran # (Auto) 0.02 (0.00-0.02) K/uL Sodium 136 (136-145) mmol/L Potassium 3.5 (3.5-5.1) mmol/L Chloride 99 (98-107) mmol/L Carbon Dioxide 28 (21-32) mmol/L Anion Gap 9 (3-11) BUN 15 (6-23) mg/dl Creatinine 2.08 H D (0.6-1.2) mg/dl Est Cr Clr Drug Dosing 27.6 ml/min Est GFR ( Amer) 27.3 ml/min Est GFR (Non-Af Amer) 23.5 ml/min BUN/Creatinine Ratio 7.2 L (10-20) Glucose 127 H (70-99(Fasting)) mg/dl POC Glucose (70-99) mg/dl POC Glucose (other) (70-99) mg/dl Calcium 7.9 L (8.5-10.1) mg/dl Magnesium 1.9 (1.7-2.4) mg/dl Iron 43 (35-150) mcg/dl TIBC TNP Unsaturated IBC < 55 L (155-355) mcg/dl Transferrin % Sat TNP Ferritin 1696.0 H (8-388) ng/ml Total Bilirubin 0.6 (0.2-1.0) mg/dl AST 37 (13-39) U/L ALT 14 (7-52) U/L Alkaline Phosphatase 69 (34-104) U/L Total Protein 5.2 L (6.0-8.3) gm/dl Albumin 2.3 L (3.4-5.0) gm/dl Globulin 2.9 (2.5-4.0) gm/dl Albumin/Globulin Ratio 0.8 L (0.9-2) Vitamin B12 463 (180-914) pg/ml Folate 21.12 (>5.38) ng/ml Random Vancomycin (10-20) mcg/ml 08/07/21 08/07/21 08/07/21 Range/Units 04:34 03:51 01:09 WBC (4.8-10.8) K/uL RBC (4.2-5.4) M/uL Hgb (12.0-16.0) g/dL Hct (37-47) % MCV (80-100) fL MCH (25-34) pg MCHC (32-36) g/dL RDW Std Deviation (36.4-46.3) fL RDW Coeff of Juno (11.5-14.5) % Plt Count (130-400) K/uL MPV (7.4-10.4) fL Immature Gran % (Auto) % Neut % (Auto) % Lymph % (Auto) % [place] % (Auto) % Eos % (Auto) % Baso % (Auto) % Neut # (Auto) (1.4-6.5) K/uL Lymph # (Auto) (1.2-3.4) K/uL [place] # (Auto) (0.11-0.59) K/uL Eos # (Auto) (0-0.5) K/uL Baso # (Auto) (0-0.2) K/uL Immature Gran # (Auto) (0.00-0.02) K/uL Sodium (136-145) mmol/L Potassium (3.5-5.1) mmol/L Chloride (98-107) mmol/L Carbon Dioxide (21-32) mmol/L Anion Gap (3-11) BUN (6-23) mg/dl Creatinine (0.6-1.2) mg/dl Est Cr Clr Drug Dosing ml/min Est GFR ( Amer) ml/min Est GFR (Non-Af Amer) ml/min BUN/Creatinine Ratio (10-20) Glucose (70-99(Fasting)) mg/dl POC Glucose 107 H (70-99) mg/dl POC Glucose (other) 129 H (70-99) mg/dl Calcium (8.5-10.1) mg/dl Magnesium (1.7-2.4) mg/dl Iron (35-150) mcg/dl TIBC Unsaturated IBC (155-355) mcg/dl Transferrin % Sat Ferritin (8-388) ng/ml Total Bilirubin (0.2-1.0) mg/dl AST (13-39) U/L ALT (7-52) U/L Alkaline Phosphatase (34-104) U/L Total Protein (6.0-8.3) gm/dl Albumin (3.4-5.0) gm/dl Globulin (2.5-4.0) gm/dl Albumin/Globulin Ratio (0.9-2) Vitamin B12 (180-914) pg/ml Folate (>5.38) ng/ml Random Vancomycin 17.6 (10-20) mcg/ml 08/06/21 Range/Units 20:28 WBC (4.8-10.8) K/uL RBC (4.2-5.4) M/uL Hgb (12.0-16.0) g/dL Hct (37-47) % MCV (80-100) fL MCH (25-34) pg MCHC (32-36) g/dL RDW Std Deviation (36.4-46.3) fL RDW Coeff of Juno (11.5-14.5) % Plt Count (130-400) K/uL MPV (7.4-10.4) fL Immature Gran % (Auto) % Neut % (Auto) % Lymph % (Auto) % [place] % (Auto) % Eos % (Auto) % Baso % (Auto) % Neut # (Auto) (1.4-6.5) K/uL Lymph # (Auto) (1.2-3.4) K/uL [place] # (Auto) (0.11-0.59) K/uL Eos # (Auto) (0-0.5) K/uL Baso # (Auto) (0-0.2) K/uL Immature Gran # (Auto) (0.00-0.02) K/uL Sodium (136-145) mmol/L Potassium (3.5-5.1) mmol/L Chloride (98-107) mmol/L Carbon Dioxide (21-32) mmol/L Anion Gap (3-11) BUN (6-23) mg/dl Creatinine (0.6-1.2) mg/dl Est Cr Clr Drug Dosing ml/min Est GFR ( Amer) ml/min Est GFR (Non-Af Amer) ml/min BUN/Creatinine Ratio (10-20) Glucose (70-99(Fasting)) mg/dl POC Glucose (70-99) mg/dl POC Glucose (other) 181 H (70-99) mg/dl Calcium (8.5-10.1) mg/dl Magnesium (1.7-2.4) mg/dl Iron (35-150) mcg/dl TIBC Unsaturated IBC (155-355) mcg/dl Transferrin % Sat Ferritin (8-388) ng/ml Total Bilirubin (0.2-1.0) mg/dl AST (13-39) U/L ALT (7-52) U/L Alkaline Phosphatase (34-104) U/L Total Protein (6.0-8.3) gm/dl Albumin (3.4-5.0) gm/dl Globulin (2.5-4.0) gm/dl Albumin/Globulin Ratio (0.9-2) Vitamin B12 (180-914) pg/ml Folate (>5.38) ng/ml Random Vancomycin (10-20) mcg/ml PG Care Time/CCT Total # of Minutes Spent Total Time Spent with Patient: Total time spent is greater than 50% in coordination of care (as documented) at patient's floor/unit and/or counseling patient: Coding Level of Care Code 08177 Subseq Hosp Care Lvl 3 Diagnoses Septic shock A41.9; R65.21 Bacteremia R78.81 Discitis of thoracic region M46.44 Acute osteomyelitis of right calcaneus M86.171 Acute metabolic encephalopathy G93.41 UTI (urinary tract infection) N39.0 Depression F32.A Coronary artery disease I25.10 Hypertension I10 Diabetic peripheral neuropathy E11.42 Chronic kidney disease requiring chronic dialysis N18.6; Z99.2 Obesity E66.9 Obstructive sleep apnea G47.33 Hypothyroidism E03.9 Anemia in chronic renal disease N18.9; D63.1 Chronic respiratory failure with hypoxia J96.11 Hypomagnesemia E83.42 Abdominal pain R10.9 Coagulopathy D68.9 History of GI bleed Z87.19 Candidiasis of mouth and esophagus B37.81; B37.0 Hyperglycemia R73.9 Ischemic cardiomyopathy I25.5 Aortic stenosis I35.0 DVT prophylaxis Z29.9
[2021-08-07] MEDS ORDERED: POTASSIUM CHLORIDE CRTAB 20 MEQ TABCR PO STA (19:16)
--- NOTE | 2021-08-07 19:49 | Ultrasound Report ---
ULTRASOUND BILATERAL LOWER EXTREMITY ARTERIAL CLINICAL HISTORY: Lower extremity wounds. COMPARISON STUDY: No priors. TECHNIQUE: Portable real-time grayscale and color Doppler sonography of the arteries of the right and left lower extremities performed from the inguinal crease to the foot. Ankle-brachial indices could not be assessed on this portable examination. FINDINGS: Right lower extremity: Advanced atherosclerotic plaque and irregularity is seen throughout the arteri es of the right lower extremity. There are triphasic waveforms in the common femoral artery with [place] measuring up to 82 cm/s. The profunda femoris artery is patent with velocities measuring up to 32 cm/s. A stent is present throughout the right superficial femoral artery and appears occluded. Th ere is reversal of flow within the popliteal artery. There are blunted arterial waveforms in the popl iteal artery with velocities measuring up to 34 cm/s. There is single vessel runoff to the foot. The anterior tibial artery is patent with blunted arterial waveforms and velocities measuring up to 38 cm /s. The dorsalis pedis artery is patent with velocities measuring up to 27 cm/s. The peroneal artery is occluded. There is monophasic flow in the proximal posterior tibial artery. The mid to distal port ions of the vessel appears occluded. Left lower extremity: Advanced atherosclerotic plaque and irregularity seen throughout the arteries o f the left lower extremity. The common femoral artery is occluded, as is the proximal to mid portions of the superficial femoral artery. The profundus femoris artery is patent with velocities measuring up to 48 cm/s. There is reconstitution of flow in the mid to distal superficial femoral artery. There are blunted arterial waveforms in the distal superficial femoral artery with velocities measuring up to 17 cm/s. The popliteal artery is patent with velocities measuring up to 27 cm/s. There is two-ves yue runoff to the left foot. There are blunted arterial waveforms in the anterior tibial artery with velocities measuring up to 29 cm/s. The dorsalis pedis is patent with velocities measuring up to 13 c m/s. The peroneal artery is patent with monophasic flow and velocities measuring up to 17 cm/s. The p osterior tibial artery appears occluded. IMPRESSION: Advanced peripheral vascular disease with multifocal bilateral vascular occlusions as det shabbir above. Dictated: 08/07/2021 4:08 PM Transcribed: 08/07/2021 4:19 PM Sonia [id number] JANINE_Yariel Electronically signed by: Anand Pruett M.D. 08/07/2021 7:47 PM
[2021-08-07 20:09] LABS: BUN Creatinine Ratio 8.3 (10-20); Calcium 8.3 mg/dl (8.5-10.1); Creatinine Clr Calc Pharmacy 20.7 ml/min; Est GFR (African American) 19.2 ml/min; Est GFR (Non-African American) 16.6 ml/min
[2021-08-07] MEDS: MAGNESIUM SULFATE / D5W 1 GM/100 ML BAG IV SCH ×2 (20:19→21:09)
[2021-08-07] MEDS: GABAPENTIN 100 MG CAP PO SCH (20:20)
[2021-08-08] MEDS: INSULIN ASPART PER UNIT SC SCH ×2 (01:41→05:03)
[2021-08-08] MEDS ORDERED: PIPERACILLIN/TAZOBACTAM 4.5 GM in DEXTROSE 5% 100 ML IV SCH (02:00)
[2021-08-08] MEDS: oxyCODONE HCL IR 5 MG TAB (IMMEDIATE RELEASE) PO PRN ×2 (02:20→11:47)
[2021-08-08 05:33] LABS: Basophils # (auto) 0.02 K/uL (0-0.2); Basophils % (auto) 0.2 %; Eosinophils # (auto) 0.22 K/uL (0-0.5); Eosinophils % (auto) 2.7 %; Hematocrit (blood only) 32.4 % (37-47); Hemoglobin 10.4 g/dL (12.0-16.0); Immature Granulocytes # (auto) 0.03 K/uL (0.00-0.02); Immature Granulocytes % (auto) 0.4 %; Lymphocytes % (auto) 29.6 %; Mean Corpuscular Hemoglobin 27.7 pg (25-34); Mean Corpuscular Hgb Conc 32.1 g/dL (32-36); Mean Corpuscular Volume 86.4 fL (80-100); Mean Platelet Volume 10.1 fL (7.4-10.4); Monocytes # (auto) 0.87 K/uL (0.11-0.59); Monocytes % (auto) 10.7 %; Neutrophils # (auto) 4.57 K/uL (1.4-6.5); Neutrophils % (auto) 56.4 %; Platelet Count 236 K/uL (130-400); RDW Standard Deviation 57.1 fL (36.4-46.3); Red Blood Count 3.75 M/uL (4.2-5.4); White Blood Count 8.11 K/uL (4.8-10.8)
[2021-08-08 06:00] LABS: BUN Creatinine Ratio 8.1 (10-20); Calcium 8.1 mg/dl (8.5-10.1); Creatinine Clr Calc Pharmacy 19.5 ml/min; Est GFR (African American) 17.9 ml/min; Est GFR (Non-African American) 15.4 ml/min; Phosphorus 3.5 mg/dl (2.5-4.9)
[2021-08-08] MEDS: LEVOTHYROXINE SODIUM 88 MCG TABLET PO SCH (06:13)
[2021-08-08] MEDS: NYSTATIN SUSP 500,000 U/5 ML UDC PO SCH ×4 (08:29→20:29)
[2021-08-08] MEDS: INSULIN ASPART 100 UNITS/ML 3 ML PEN SC SCH ×4 (08:29→20:37)
[2021-08-08] MEDS: DULoxetine HCL 30 MG CAP PO SCH (08:41)
[2021-08-08] MEDS: DOCUSATE SODIUM 100 MG CAP PO SCH ×2 (08:41→20:28)
[2021-08-08] MEDS: MIDODRINE HCL 10 MG TAB PO SCH ×3 (08:41→16:28)
[2021-08-08] MEDS: HEPARIN SOD 5,000 UNIT/0.5 ML VIAL SQ SCH ×2 (08:41→20:29)
[2021-08-08] MEDS: PANTOprazole 40 MG TAB PO SCH ×2 (08:41→20:30)
[2021-08-08] MEDS ORDERED: POTASSIUM CHLORIDE CRTAB 20 MEQ TABCR PO ONE (09:45)
--- NOTE | 2021-08-08 09:46 | Critical Care Progress Note ---
Date of Service August 08, 2021 Assessment & Plan (1) Admitted to intensive care unit: Plan: NEURO - * Altered mental status: Improved: continues to wax and wane * CT head demonstrated no acute findings. CARDIAC/VASCULAR - * Hypotension: resolved * improved after 100 mg hydrocortisone x 1 08/07 * Monitor on telemetry. Cardiomyopathy - - Reviewed Cardiology consult and recs RESPIRATORY - * Chronic hypoxic respiratory failure, COPD, AUDI: Resolved GI/NUTRITION - * Advance diet as tolerated * home protonix RENAL/LYTES - * End-stage renal disease on hemodialysis (Thursday//Thursday): * nephrology following. line holiday, hope to avoid dialysis as long as possible * Hypokalemia * Kdur 20 meq x 1 * incontinence, making small amounts of urine - * UTI: * Gamma hemolytic strep. * Garcia discontinued ENDO - * IDDM: * BSGs per unit protocol. ISS --> gtt per unit policy. * Hypothyroidism: * Continue current outpatient PO Rx HEME - * Anemia of chronic disease (ESRD) ID - * Severe sepsis w/ septic shock: resolved * Multifactorial: heal wound likely polymicrobial, * Perma-cath removal by vascular surgery today * Orthopedic evaluation anticipated * zosyn should treat UTI: * Bacteremia: * MSSA * Antibiotics dosing by pharmacy appreciated. * de-escalate to cefazolin and ampicillin * Ankle MRI completed LINES/IV ACCESS - * PIVs x2 * RIGHT IJ Permacath d/c'ed 08/07 * LEFT Femoral CVL - d/c'ed 08/07 DVT PROPHYLAXIS - * heparin 5000 BID, on hold this am for procedure then continue * SCDs CODE STATUS - * Patient w/ POLST form stating DNR/DNI status. * Patient's sister, Romina Boswell ([phone]) * DNR/DNI: would re-address goals of care frequently Discussed on multidisciplinary rounds Stable to downgrade from ICU. (2) Severe sepsis: (3) AMS (altered mental status): (4) Hypoxia: (5) Chronic kidney disease requiring chronic dialysis: (6) Septic shock: (7) Acute osteomyelitis of right calcaneus: (8) Discitis of thoracic region: (9) UTI (urinary tract infection): Admission and Anticipated Discharge Date Admission Date: August 04, 2021 Subjective Refusing meds and breakfast tray this morning. Reports would eat breakfast after she wakes up. Physical Exam Physical Exam: General: oriented to self Skin: Warm, dry, Head: Atraumatic Ears, nose, mouth and throat: airway patent Cardiovascular: Normal peripheral perfusion Respiratory: no respiratory distress Gastrointestinal: Non distended Musculoskeletal: No deformity Results & Data Results & Data ([facility]) Vital Signs (Past 12 Hours) Vital Signs Temp Pulse Resp BP Pulse Ox 08/08/21 08:00 87 10 L 114/74 98 08/08/21 07:00 36.8 C 90 13 129/76 97 08/07/21 23:36 94 H 08/07/21 23:00 93 H 11 L 126/70 08/07/21 22:01 99 H 18 110/58 L 93 Critical Care Results & Data Vital Signs (Past 12 Hours) Vital Signs Temp Pulse Resp BP Pulse Ox 08/08/21 08:00 87 10 L 114/74 98 08/08/21 07:00 36.8 C 90 13 129/76 97 08/07/21 23:36 94 H 08/07/21 23:00 93 H 11 L 126/70 Lab & Micro Results (Past 24 Hours) RBC 3.75 M/uL (4.2-5.4) L 08/08/21 WBC 8.11 K/uL (4.8-10.8) 08/08/21 Hgb 10.4 g/dL (12.0-16.0) L 08/08/21 Hct 32.4 % (37-47) L 08/08/21 MCV 86.4 fL (80-100) 08/08/21 MCH 27.7 pg (25-34) 08/08/21 MCHC 32.1 g/dL (32-36) 08/08/21 RDW Standard Deviation 57.1 fL (36.4-46.3) H 08/08/21 RDW Coefficient of Variation 18.0 % (11.5-14.5) H 08/08/21 Plt Count 236 K/uL (130-400) 08/08/21 MPV 10.1 fL (7.4-10.4) 08/08/21 Neutrophils (%) (Auto) 56.4 % 08/08/21 Lymphocytes (%) (Auto) 29.6 % 08/08/21 Monocytes # (Auto) 0.87 K/uL (0.11-0.59) H 08/08/21 Eosinophils # (Auto) 0.22 K/uL (0-0.5) 08/08/21 Immature Granulocyte % (Auto) 0.4 % 08/08/21 Neutrophils # (Auto) 4.57 K/uL (1.4-6.5) 08/08/21 Lymphocytes # (Auto) 2.40 K/uL (1.2-3.4) 08/08/21 Monocytes # (Auto) 0.87 K/uL (0.11-0.59) H 08/08/21 Eosinophils # (Auto) 0.22 K/uL (0-0.5) 08/08/21 Basophils # (Auto) 0.02 K/uL (0-0.2) 08/08/21 Immature Granulocyte # (Auto) 0.03 K/uL (0.00-0.02) H 08/08/21 Na 138 mmol/L (136-145) 08/08/21 K 3.0 mmol/L (3.5-5.1) L 08/08/21 Cl 101 mmol/L (98-107) 08/08/21 CO2 25 mmol/L (21-32) 08/08/21 Anion Gap 12 (3-11) H 08/08/21 BUN 24 mg/dl (6-23) H 08/08/21 Creatinine 2.95 mg/dl (0.6-1.2) H 08/08/21 Estimated GFR ( Amer) 17.9 ml/min 08/08/21 Estimated GFR (Non-Af Amer) 15.4 ml/min 08/08/21 BUN/Creatinine Ratio 8.1 (10-20) L 08/08/21 Glu 85 mg/dl (70-99(Fasting)) 08/08/21 Ca 8.1 mg/dl (8.5-10.1) L 08/08/21 Phosphorus Level 3.5 mg/dl (2.5-4.9) 08/08/21 Mg 2.0 mg/dl (1.7-2.4) 08/08/21 05:13 08/08/21 Calcium Level 8.1 mg/dl (8.5-10.1) L 08/08/21 05:13 08/08/21 Microbiology 08/05/21 10:21 Aerobic Blood Culture - Preliminary Blood Staphylococcus species Anaerobic Blood Culture - Preliminary No growth in Anaerobic bottle after 48 hours. 08/05/21 13:18 Aerobic Blood Culture - Preliminary Blood Gram positive cocci clusters Anaerobic Blood Culture - Preliminary No growth in Anaerobic bottle after 48 hours. 08/05/21 10:26 Aerobic Blood Culture - Preliminary Blood Gram positive cocci clusters Anaerobic Blood Culture - Preliminary No growth in Anaerobic bottle after 48 hours. 08/04/21 19:10 Urine Culture - Final Urine,Straight Cath Enterococcus faecalis Diagnostic Findings (Past 24 Hours) Duplex Scan Lower Extremity Artery 08/07/21 15:01 ULTRASOUND BILATERAL LOWER EXTREMITY ARTERIAL CLINICAL HISTORY: Lower extremity wounds. COMPARISON STUDY: No priors. TECHNIQUE: Portable real-time grayscale and color Doppler sonography of the arteries of the right and left lower extremities performed from the inguinal crease to the foot. Ankle-brachial indices could not be assessed on this portable examination. FINDINGS: Right lower extremity: Advanced atherosclerotic plaque and irregularity is seen throughout the arteries of the right lower extremity. There are triphasic waveforms in the common femoral artery with velocities measuring up to 82 cm/s. The profunda femoris artery is patent with velocities measuring up to 32 cm/s. A stent is present throughout the right superficial femoral artery and appears occluded. There is reversal of flow within the popliteal artery. There are blunted arterial waveforms in the popliteal artery with velocities measuring up to 34 cm/s. There is single vessel runoff to the foot. The anterior tibial artery is patent with blunted arterial waveforms and velocities measuring up to 38 cm/s. The dorsalis pedis artery is patent with velocities measuring up to 27 cm/s. The peroneal artery is occluded. There is monophasic flow in the proximal posterior tibial artery. The mid to distal portions of the vessel appears occluded. Left lower extremity: Advanced atherosclerotic plaque and irregularity seen throughout the arteries of the left lower extremity. The common femoral artery is occluded, as is the proximal to mid portions of the superficial femoral artery. The profundus femoris artery is patent with velocities measuring up to 48 cm/s. There is reconstitution of flow in the mid to distal superficial femoral artery. There are blunted arterial waveforms in the distal superficial femoral artery with velocities measuring up to 17 cm/s. The popliteal artery is patent with velocities measuring up to 27 cm/s. There is two-vessel runoff to the left foot. There are blunted arterial waveforms in the anterior tibial artery with velocities measuring up to 29 cm/s. The dorsalis pedis is patent with velocities measuring up to 13 cm/s. The peroneal artery is patent with monophasic flow and velocities measuring up to 17 cm/s. The posterior tibial artery appears occluded. IMPRESSION: Advanced peripheral vascular disease with multifocal bilateral vascular occlusions as detailed above. Dictated: 08/07/2021 4:08 PM Transcribed: 08/07/2021 4:19 PM Sonia [id number] JANINE_Yariel Electronically signed by: Anand Pruett M.D. 08/07/2021 7:47 PM I & O Totals 24 Hours 08/07/21 08/08/21 08/09/21 06:59 06:59 06:59 Intake Total 1343.414 / 1343.414 590 / 590 0 / 0 Output Total 1100 / 1100 2 / 2 Balance 243.414 / 243.414 588 / 588 0 / 0 Cumulative 08/04/21 16:59 thru 08/08/21 09:48 Intake Total 7133.816 Output Total 1980 Balance 5153.816 RT Ventilator Mngmt (Last Documented) Ventilator Ordered Settings Respiratory Rate 10 08/08/21 08:00 Ventilator - PT Measurements Respiratory Rate 10 Coding Level of Care Code 24920 Subseq Hosp Care Lvl 3 Diagnoses Admitted to intensive care unit Z78.9 Severe sepsis A41.9; R65.20 AMS (altered mental status) R41.82 Altered mental status type: unspecified Hypoxia R09.02 Chronic kidney disease requiring chronic dialysis N18.6; Z99.2 Septic shock A41.9; R65.21 Acute osteomyelitis of right calcaneus M86.171 Discitis of thoracic region M46.44 UTI (urinary tract infection) N39.0 (1) AMS (altered mental status) Altered mental status type: unspecified Qualified Code(s): R41.82 - Altered mental status, unspecified
[2021-08-08] MEDS: NOREPINEPHRINE/D5W 8 MG/508 ML BAG IV SCH ×3 (09:49→09:51)
--- NOTE | 2021-08-08 09:59 | Hospitalist Progress Note ---
Date of Service August 08, 2021 Assessment & Plan (1) Septic shock: Plan: With MSSA Septicemia BCxs with MSSA from 08/04, repeat BCxs 08/05 now also with Staphylococcus species- sensitivities pending Blood cultures from 08/08-pending Ur cx with Enterococcus faecalis sensitive to ampicillin, daptomycin, penicillin, vancomycin Wound culture from right foot growing MSSA Catheter tip from hemodialysis catheter culture-no growth to date Source - HD catheter vs SBE vs diskitis spine/osteomyelitis of foot vs UTI Now off levophed but blood pressures are soft at times Continue midodrine 10 mg p.o. 3 times daily daily rather than just on dialysis days Random cortisol level 18 but did receive 1 dose of IV hydrocortisone on 08/06 ECHO no valvular vegetation Hemodialysis catheter removed on 08/07 and catheter tip sent for culture MRI right ankle with osteomyelitis of the calcaneus, Charcot foot, and high- grade tears of the posterior medial tendons -Continue to follow blood cultures -Continue zosyn and vancomycin for broad-spectrum coverage due to diabetic foot wound as well as MSSA bacteremia -consult Ortho re OM of heel to see about debridement-plan for tentative debridement tomorrow-make n.p.o. after midnight -Vascular surgery consulted as below for severe PAD-plans on intervention after bacteremia clears (2) Bacteremia: Plan: as above (3) Acute osteomyelitis of right calcaneus: Plan: Suspected based on plain films. Confirmed with MRI WIth open draining foul smelling wound on right heel Treatment plan as above (4) PAD (peripheral artery disease): Plan: With severe PAD based on clinical exam and bilateral lower extremity arterial Dopplers showing advanced peripheral vascular disease with multifocal bilateral vascular occlusions Vascular surgery consulted-plan for intervention after bacteremia clears (5) Discitis of thoracic region: Plan: Suspected based on CT chest findings. May need MRI t-spine but does not complain of pain at the site-does not seem likely source continue with IV abx as above (6) Acute metabolic encephalopathy: Plan: 2nd to sepsis/septic shock, renal failure Ongoing Supportive care, redirection, and treatment of infection (7) UTI (urinary tract infection): Plan: ua suspicious for such. urine cx with Enterococcus faecalis as above Continue IV antibiotic therapy. (8) Chronic kidney disease requiring chronic dialysis: Plan: Date of HD initiation uncertain but she reports it was approximately 3 weeks ago while hospitalized in [place]. [facility] Nephrology consulted for HD needs. Hemodialysis catheter removed on 08/07 due to bacteremia s/p HD on 08/06 On a line holiday for couple of days as per nephrology, will need a new temporary line versus new PermCath prior to next dialysis session Follow BMP (9) Depression: Plan: Recently on 120mg of cymbalta. Dose reduced while patient was at [facility]. Continue 30mg daily. (10) Coronary artery disease: Plan: History uncertain. With WMAs on ECHO here Mild troponin elevation c/w myocardial demand ischemia rather than ACS. Cardiology consult appreciated continue statin, not on ASA, beta noel-had recent GI bleed and should not be on antiplatelets right now (11) Hypertension: Plan: lasix on hold BPs low as above with shock (12) Diabetic peripheral neuropathy: Plan: Hold gabapentin in light of acute metabolic encephalopathy. Cont cymbalta. (13) Ischemic cardiomyopathy: Plan: noted to have EF 30-35% on ECHO with WMAs, mod-severe , elevated RVSP not volume overloaded holding home lasix BPs cannot tolerate beta noel or hydralazine/isosorbide and renal function can't handle ACEi/ARB (14) Hypothyroidism: Plan: TSH wnl. Continue levothyroxine 88mcg daily. (15) Anemia in chronic renal disease: Plan: Hb 10.4 this am and stable. CBC am. Iron studies show normal serum iron, transferrin sat not performed B12 and folate normal (16) Chronic respiratory failure with hypoxia: Plan: 2L NC 02 at baseline. (17) Hypomagnesemia: Plan: replaced and normalized (18) Aortic stenosis: Plan: mod-severe on ECHO here (19) Abdominal pain: Plan: CT a/p with ?pericholecystic fluid. RUQ u/s without findings to suggest acute cholecystitis. Lower abd pain may be due to constipation (moderate stool in rectum on CT). Dulcolax suppox x 1 was given. No further abdominal pain (20) Hyperglycemia: Plan: Hba1c 5.6%, but may be spurious due to anemia. Significant hyperglycemia now improved Pharmacy is managing insulin (21) History of GI bleed: Plan: recent AVM bleeding/UGI bleed as per reports from hospitalization in [place] continue PPI bid (22) Candidiasis of mouth and esophagus: Plan: nystatin 5cc qid swish/spit. (23) Coagulopathy: Plan: INR 1.4. No evidence of DIC. Liver disease? vitamin K deficiency? other? repeat INR now 1.3 consider vit K supplementation. (24) Obstructive sleep apnea: Plan: History of. Not on CPAP by report. (25) Obesity: Plan: BMI 30 (26) DVT prophylaxis: Plan: Heparin SQ Plan: Dispo-continued stay but downgrade to PCU I had a long discussion with her sister, Romina, on the phone. We discussed goals of care. She understands how sick her sister is and wants us to try to help her, but is not sure that her sister would want an amputation if it came to that. She also does not want to see her sister suffer and we also discussed the possibility of hospice in the future if she continues to decline. Admission and Anticipated Discharge Date Admission Date: August 04, 2021 Subjective Patient was confused overnight and was pulling out IVs. Had soft mitts placed. When I saw her this morning, she was sleeping but did wake up. She was somewhat confused and did not know which hospital she was in. She denied pain in the feet, no chest pain or shortness of breath, no abdominal pains. We discussed her condition with the bacteremia, the severe PAD in her legs, and the wound on her heel. She did understand and said she would be okay with doing a surgical procedure. She was able to somewhat repeat the situation back to me. Later in the day, nursing reported that she was having pain all over and was yelling out with pain. She was given pain medicine Telemetry with sinus rhythm with 13 beat run of V. tach. Review of Systems Review of Systems: All systems reviewed & are unremarkable except as noted in HPI & below Physical Exam Constitutional: WD/WN, vitals as above + ill appearing Eyes: + anicteric sclerae ENMT: external ear and nose normal, oropharynx normal Neck: trachea midline, no thyromegaly Respiratory: normal respiratory effort, lungs clear to auscultation Cardiovascular: Rate/Rhythm: regular rate and regular rhythm Heart Sounds: + murmur (3/6 STAN at RUSB) Chest (Breasts): Chest: + abnormal inspection of chest (Incisional wound right anterior chest clean dry intact) Gastrointestinal (Abdomen): normal bowel sounds, soft, nontender, no hepatosplenomegaly Musculoskeletal: Extremities: extremities normal to inspection; no cyanosis and no clubbing Skin: + wound (rt heel open wound,purulent foul smelling drainage) Neurologic: moves all extremities and awake; no focal motor deficits Psychiatric: Orientation: alert, oriented to person and cooperative Lymphatic: no lymphedema Results & Data Results & Data ([facility]) Vital Signs (Past 12 Hours) Vital Signs Temp Pulse Resp BP Pulse Ox 08/08/21 08:00 87 10 L 114/74 98 08/08/21 07:00 36.8 C 90 13 129/76 97 08/07/21 23:36 94 H 08/07/21 23:00 93 H 11 L 126/70 08/07/21 22:01 99 H 18 110/58 L 93 Laboratory Results 08/08/21 08/08/21 08/08/21 Range/Units 16:36 11:46 08:15 WBC (4.8-10.8) K/uL RBC (4.2-5.4) M/uL Hgb (12.0-16.0) g/dL Hct (37-47) % MCV (80-100) fL MCH (25-34) pg MCHC (32-36) g/dL RDW Std Deviation (36.4-46.3) fL RDW Coeff of Juno (11.5-14.5) % Plt Count (130-400) K/uL MPV (7.4-10.4) fL Immature Gran % (Auto) % Neut % (Auto) % Lymph % (Auto) % Alfalfa % (Auto) % Eos % (Auto) % Baso % (Auto) % Neut # (Auto) (1.4-6.5) K/uL Lymph # (Auto) (1.2-3.4) K/uL Alfalfa # (Auto) (0.11-0.59) K/uL Eos # (Auto) (0-0.5) K/uL Baso # (Auto) (0-0.2) K/uL Immature Gran # (Auto) (0.00-0.02) K/uL Sodium (136-145) mmol/L Potassium (3.5-5.1) mmol/L Chloride (98-107) mmol/L Carbon Dioxide (21-32) mmol/L Anion Gap (3-11) BUN (6-23) mg/dl Creatinine (0.6-1.2) mg/dl Est Cr Clr Drug Dosing ml/min Est GFR ( Amer) ml/min Est GFR (Non-Af Amer) ml/min BUN/Creatinine Ratio (10-20) Glucose (70-99(Fasting)) mg/dl POC Glucose 134 H 106 H 82 (70-99) mg/dl Calcium (8.5-10.1) mg/dl Phosphorus (2.5-4.9) mg/dl Magnesium (1.7-2.4) mg/dl Procalcitonin (0-0.5) ng/ml Random Vancomycin (10-20) mcg/ml 08/08/21 08/08/21 08/08/21 Range/Units 05:13 05:13 05:13 WBC 8.11 (4.8-10.8) K/uL RBC 3.75 L (4.2-5.4) M/uL Hgb 10.4 L (12.0-16.0) g/dL Hct 32.4 L (37-47) % MCV 86.4 (80-100) fL MCH 27.7 (25-34) pg MCHC 32.1 (32-36) g/dL RDW Std Deviation 57.1 H (36.4-46.3) fL RDW Coeff of Juno 18.0 H (11.5-14.5) % Plt Count 236 (130-400) K/uL MPV 10.1 (7.4-10.4) fL Immature Gran % (Auto) 0.4 % Neut % (Auto) 56.4 % Lymph % (Auto) 29.6 % Alfalfa % (Auto) 10.7 % Eos % (Auto) 2.7 % Baso % (Auto) 0.2 % Neut # (Auto) 4.57 (1.4-6.5) K/uL Lymph # (Auto) 2.40 (1.2-3.4) K/uL Alfalfa # (Auto) 0.87 H (0.11-0.59) K/uL Eos # (Auto) 0.22 (0-0.5) K/uL Baso # (Auto) 0.02 (0-0.2) K/uL Immature Gran # (Auto) 0.03 H (0.00-0.02) K/uL Sodium 138 (136-145) mmol/L Potassium 3.0 L (3.5-5.1) mmol/L Chloride 101 (98-107) mmol/L Carbon Dioxide 25 (21-32) mmol/L Anion Gap 12 H (3-11) BUN 24 H (6-23) mg/dl Creatinine 2.95 H (0.6-1.2) mg/dl Est Cr Clr Drug Dosing 19.5 ml/min Est GFR ( Amer) 17.9 ml/min Est GFR (Non-Af Amer) 15.4 ml/min BUN/Creatinine Ratio 8.1 L (10-20) Glucose 85 (70-99(Fasting)) mg/dl POC Glucose (70-99) mg/dl Calcium 8.1 L (8.5-10.1) mg/dl Phosphorus 3.5 (2.5-4.9) mg/dl Magnesium 2.0 (1.7-2.4) mg/dl Procalcitonin 11.33 H (0-0.5) ng/ml Random Vancomycin (10-20) mcg/ml 08/08/21 08/08/21 08/08/21 Range/Units 05:13 05:01 01:29 WBC (4.8-10.8) K/uL RBC (4.2-5.4) M/uL Hgb (12.0-16.0) g/dL Hct (37-47) % MCV (80-100) fL MCH (25-34) pg MCHC (32-36) g/dL RDW Std Deviation (36.4-46.3) fL RDW Coeff of Juno (11.5-14.5) % Plt Count (130-400) K/uL MPV (7.4-10.4) fL Immature Gran % (Auto) % Neut % (Auto) % Lymph % (Auto) % Alfalfa % (Auto) % Eos % (Auto) % Baso % (Auto) % Neut # (Auto) (1.4-6.5) K/uL Lymph # (Auto) (1.2-3.4) K/uL Alfalfa # (Auto) (0.11-0.59) K/uL Eos # (Auto) (0-0.5) K/uL Baso # (Auto) (0-0.2) K/uL Immature Gran # (Auto) (0.00-0.02) K/uL Sodium (136-145) mmol/L Potassium (3.5-5.1) mmol/L Chloride (98-107) mmol/L Carbon Dioxide (21-32) mmol/L Anion Gap (3-11) BUN (6-23) mg/dl Creatinine (0.6-1.2) mg/dl Est Cr Clr Drug Dosing ml/min Est GFR ( Amer) ml/min Est GFR (Non-Af Amer) ml/min BUN/Creatinine Ratio (10-20) Glucose (70-99(Fasting)) mg/dl POC Glucose 91 104 H (70-99) mg/dl Calcium (8.5-10.1) mg/dl Phosphorus (2.5-4.9) mg/dl Magnesium (1.7-2.4) mg/dl Procalcitonin (0-0.5) ng/ml Random Vancomycin 18.3 (10-20) mcg/ml 08/07/21 08/07/21 Range/Units 21:05 19:33 WBC (4.8-10.8) K/uL RBC (4.2-5.4) M/uL Hgb (12.0-16.0) g/dL Hct (37-47) % MCV (80-100) fL MCH (25-34) pg MCHC (32-36) g/dL RDW Std Deviation (36.4-46.3) fL RDW Coeff of Juno (11.5-14.5) % Plt Count (130-400) K/uL MPV (7.4-10.4) fL Immature Gran % (Auto) % Neut % (Auto) % Lymph % (Auto) % Alfalfa % (Auto) % Eos % (Auto) % Baso % (Auto) % Neut # (Auto) (1.4-6.5) K/uL Lymph # (Auto) (1.2-3.4) K/uL Alfalfa # (Auto) (0.11-0.59) K/uL Eos # (Auto) (0-0.5) K/uL Baso # (Auto) (0-0.2) K/uL Immature Gran # (Auto) (0.00-0.02) K/uL Sodium 138 (136-145) mmol/L Potassium 3.0 L (3.5-5.1) mmol/L Chloride 99 (98-107) mmol/L Carbon Dioxide 26 (21-32) mmol/L Anion Gap 13 H (3-11) BUN 23 (6-23) mg/dl Creatinine 2.78 H D (0.6-1.2) mg/dl Est Cr Clr Drug Dosing 20.7 ml/min Est GFR ( Amer) 19.2 ml/min Est GFR (Non-Af Amer) 16.6 ml/min BUN/Creatinine Ratio 8.3 L (10-20) Glucose 137 H (70-99(Fasting)) mg/dl POC Glucose 130 H (70-99) mg/dl Calcium 8.3 L (8.5-10.1) mg/dl Phosphorus (2.5-4.9) mg/dl Magnesium 2.0 (1.7-2.4) mg/dl Procalcitonin (0-0.5) ng/ml Random Vancomycin (10-20) mcg/ml Diagnostic Findings Duplex Scan Lower Extremity Artery 08/07/21 15:01 ULTRASOUND BILATERAL LOWER EXTREMITY ARTERIAL CLINICAL HISTORY: Lower extremity wounds. COMPARISON STUDY: No priors. TECHNIQUE: Portable real-time grayscale and color Doppler sonography of the arteries of the right and left lower extremities performed from the inguinal crease to the foot. Ankle-brachial indices could not be assessed on this portable examination. FINDINGS: Right lower extremity: Advanced atherosclerotic plaque and irregularity is seen throughout the arteries of the right lower extremity. There are triphasic waveforms in the common femoral artery with velocities measuring up to 82 cm/s. The profunda femoris artery is patent with velocities measuring up to 32 cm/s. A stent is present throughout the right superficial femoral artery and appears occluded. There is reversal of flow within the popliteal artery. There are blunted arterial waveforms in the popliteal artery with velocities measuring up to 34 cm/s. There is single vessel runoff to the foot. The anterior tibial artery is patent with blunted arterial waveforms and velocities measuring up to 38 cm/s. The dorsalis pedis artery is patent with velocities measuring up to 27 cm/s. The peroneal artery is occluded. There is monophasic flow in the proximal posterior tibial artery. The mid to distal portions of the vessel appears occluded. Left lower extremity: Advanced atherosclerotic plaque and irregularity seen throughout the arteries of the left lower extremity. The common femoral artery is occluded, as is the proximal to mid portions of the superficial femoral artery. The profundus femoris artery is patent with velocities measuring up to 48 cm/s. There is reconstitution of flow in the mid to distal superficial femoral artery. There are blunted arterial waveforms in the distal superficial femoral artery with velocities measuring up to 17 cm/s. The popliteal artery is patent with velocities measuring up to 27 cm/s. There is two-vessel runoff to the left foot. There are blunted arterial waveforms in the anterior tibial artery with velocities measuring up to 29 cm/s. The dorsalis pedis is patent with velocities measuring up to 13 cm/s. The peroneal artery is patent with monophasic flow and velocities measuring up to 17 cm/s. The posterior tibial artery appears occluded. IMPRESSION: Advanced peripheral vascular disease with multifocal bilateral vascular occlusions as detailed above. Dictated: 08/07/2021 4:08 PM Transcribed: 08/07/2021 4:19 PM Sonia [id number] JANINE_Yariel Electronically signed by: Anand Pruett M.D. 08/07/2021 7:47 PM Ankle MRI 08/08/21 02:25 MR ankle RT wo con CLINICAL HISTORY: osteo, questionable right heel infection. TECHNIQUE: Multisequence, multiplanar MR images of the right ankle were obtained without contrast.. COMPARISON: None available at the time of this dictation. FINDINGS: Exam is limited by patient motion. Soft tissue ulcer is seen in the heel and there is adjacent edema in the posterior calcaneus. Extensive degenerative changes are seen in the joints and there is gross deformity of the ankle joint. There is a high-grade partial tear of the tibialis posterior and there is likely tear of the remaining posterior medial tendons as well. IMPRESSION: 1. Calcaneal osteomyelitis. 2. Charcot joint. 3. High-grade tears of the posterior medial tendons. ACT 112: Negative or not required by law. Electronically signed by: Jose Larsen M.D. 08/08/2021 1:02 PM PG Care Time/CCT Total # of Minutes Spent Total Time Spent with Patient: Total time spent is greater than 50% in coordination of care (as documented) at patient's floor/unit and/or counseling patient: Coding Level of Care Code 65122 Subseq Hosp Care Lvl 3 Diagnoses Septic shock A41.9; R65.21 Bacteremia R78.81 Discitis of thoracic region M46.44 Acute osteomyelitis of right calcaneus M86.171 Acute metabolic encephalopathy G93.41 UTI (urinary tract infection) N39.0 Depression F32.A Coronary artery disease I25.10 Hypertension I10 Diabetic peripheral neuropathy E11.42 Chronic kidney disease requiring chronic dialysis N18.6; Z99.2 Obesity E66.9 Obstructive sleep apnea G47.33 Hypothyroidism E03.9 Anemia in chronic renal disease N18.9; D63.1 Chronic respiratory failure with hypoxia J96.11 Hypomagnesemia E83.42 Abdominal pain R10.9 Coagulopathy D68.9 History of GI bleed Z87.19 Candidiasis of mouth and esophagus B37.81; B37.0 Hyperglycemia R73.9 Ischemic cardiomyopathy I25.5 Aortic stenosis I35.0 DVT prophylaxis Z29.9 PAD (peripheral artery disease) I73.9
--- NOTE | 2021-08-08 10:33 | Pharmacy Report ---
Pharmacy Glycemic Sign Off Nt - Date of Service August 08, 2021 - Assessment & Plan ASSESSMENT: * BSG's have ranged 91-165 mg/dL over the last 24 hours * Novolog 5 units total has been administered * Steroids have not continued * OK to sign off per Dr. Santoro PLAN FOR INPATIENT GLYCEMIC CONTROL: No changes needed to current regimen. * Continue NovoLog per scale ACHS/Q6hrs while NPO * Goal range = 120 160 mg/dl * CF = 30 mg/dl/unit * CR = 1 unit for ever 10 g CHO consumed * Pharmacy is signing off of glycemic consult and will no longer be making adjustments to inpatient regimen. Please feel free to re-consult if needed. Thank you.
--- NOTE | 2021-08-08 13:04 | Magnetic Resonance Report ---
MR ankle RT wo con CLINICAL HISTORY: osteo, questionable right heel infection. TECHNIQUE: Multisequence, multiplanar MR images of the right ankle were obtained without contrast.. COMPARISON: None available at the time of this dictation. FINDINGS: Exam is limited by patient motion. Soft tissue ulcer is seen in the heel and there is adjacent edema in the posterior calcaneus. Extensi ve degenerative changes are seen in the joints and there is gross deformity of the ankle joint. There is a high-grade partial tear of the tibialis posterior and there is likely tear of the remaining pos terior medial tendons as well. IMPRESSION: 1. Calcaneal osteomyelitis. 2. Charcot joint. 3. High-grade tears of the posterior medial tendons. ACT 112: Negative or not required by law. Electronically signed by: Jose Larsen M.D. 08/08/2021 1:02 PM
[2021-08-08] MEDS ORDERED: fentaNYL citrate 100 MCG/2 ML VIAL IV ONE (13:58)
--- NOTE | 2021-08-08 14:11 | Nephrology Progress Note ---
Date of Service August 08, 2021 Assessment & Plan Admission and Anticipated Discharge Date Admission Date: August 04, 2021 Subjective Subjective S--feels weak and c/o some pain. hard to understand. CVC is out. K is low. Not eating much PHYSICAL EXAMINATION: GENERAL: Elderly white female who is quite sick at this time and is on pressors and she is in ICU. HEENT: Mucous membrane is moist. NECK: Supple. No jugular venous distention. CHEST: Bilaterally clear to auscultation. Limited quality of the exam secondary to lack of inspiratory effort. CARDIOVASCULAR: S1 and S2 tachycardic, regular. No murmur heard. ABDOMEN: Soft, nontender. EXTREMITIES: Show no edema. LABORATORY TEST: Blood culture is positive for S Aureus. CT chest and chest x- ray did not show any overt pulmonary edema or congestive heart failure. There is some possibility of diskitis, some diffuse ground-glass opacity bilaterally in the lung. Abdomen and pelvis CT scan showed mild pericholecystic infiltration. Gallbladder ultrasound already done and there was not any major abnormal finding. Calcaneus x-ray is suggestive of osteomyelitis. ASSESSMENT AND PLAN: A 71-year-old female who presented to the hospital from the rehabilitation [facility] where she was getting rehabilitation following a prolonged hospitalization. I have been consulted for dialysis management. She is a new start of dialysis within the last month with acute renal failure in the setting of extensive medical problems and progression of her underlying CKD IV. End-stage renal disease: She does not have any evidence of overt fluid overload or congestive heart failure.Also K is only 3 creat is about 3 so no need of Dialysis today. She may be able to go many many days without dialysis as she is a new HD start and still has decent residual renal function. next HD will be after new CVC placed or if emergent will do by temp Line. Give kcl 20 meq. Bacteremia- MSSA. HD cath out. Will do line holiday for next few days. Also findings suggestive of osteomyelitis in her calcaneus as well as possible diskitis. We will also need to repeat blood cultures on a daily basis for the next few days. Consider infectious disease consult given complicated infection situation here to help guide the choice and the duration of the antibiotics. BC from 08/05 is negative. Consider ruling out endocarditis also. Results & Data ([facility]) Vital Signs (Past 12 Hours) Vital Signs Temp Pulse Resp BP Pulse Ox 04/07/22 08:00 87 10 L 114/74 98 08/08/21 07:00 36.8 C 90 13 129/76 97
[2021-08-08] MEDS: AMPICILLIN 2,000 MG in SODIUM CHLOR 0.9% AD-VAN 100 ML IV SCH (16:28)
[2021-08-08] MEDS: ATORVASTATIN 40 MG TAB PO SCH (16:28)
[2021-08-08] MEDS: ceFAZolin 1000MG 1,000 MG/7.5 ML SYR IV SCH (16:28)
[2021-08-08] MEDS: GABAPENTIN 100 MG CAP PO SCH (20:30)
[2021-08-09] MEDS: LEVOTHYROXINE SODIUM 88 MCG TABLET PO SCH (05:31)
[2021-08-09 07:22] LABS: Basophils # (auto) 0.05 K/uL (0-0.2); Basophils % (auto) 0.5 %; Eosinophils # (auto) 0.27 K/uL (0-0.5); Hematocrit (blood only) 31.6 % (37-47); Hemoglobin 10.1 g/dL (12.0-16.0); Immature Granulocytes # (auto) 0.05 K/uL (0.00-0.02); Immature Granulocytes % (auto) 0.5 %; Lymphocytes # (auto) 2.97 K/uL (1.2-3.4); Lymphocytes % (auto) 32.6 %; Mean Corpuscular Hemoglobin 27.8 pg (25-34); Mean Corpuscular Volume 87.1 fL (80-100); Mean Platelet Volume 9.9 fL (7.4-10.4); Monocytes # (auto) 1.07 K/uL (0.11-0.59); Monocytes % (auto) 11.8 %; Neutrophils # (auto) 4.69 K/uL (1.4-6.5); Neutrophils % (auto) 51.6 %; Platelet Count 240 K/uL (130-400); RDW Coefficient of Variation 18.1 % (11.5-14.5); RDW Standard Deviation 57.6 fL (36.4-46.3); Red Blood Count 3.63 M/uL (4.2-5.4)
[2021-08-09 07:40] LABS: Albumin Globulin Ratio 0.8 (0.9-2); Albumin Level 2.3 gm/dl (3.4-5.0); BUN Creatinine Ratio 8.6 (10-20); Bilirubin,Total 0.5 mg/dl (0.2-1.0); Calcium 7.7 mg/dl (8.5-10.1); Creatinine Clr Calc Pharmacy 15.9 ml/min; Est GFR (African American) 14.1 ml/min; Est GFR (Non-African American) 12.2 ml/min; Globulin 2.8 gm/dl (2.5-4.0); Potassium 3.4 mmol/L (3.5-5.1); Total Protein 5.1 gm/dl (6.0-8.3)
--- NOTE | 2021-08-09 10:54 | History & Physical Bridge Note ---
Date of Service August 09, 2021 History & Physical Bridge Note I have examined the patient, reviewed the History & Physical and in the interval since the performance of the History & Physical I have noted the following changes of clinical significance: We will required extensive debridement of the diabetic neuropathic ulcer and partial right calcanectomy.
[2021-08-09] MEDS ORDERED: BUPIVACAINE 0.5 % 5 MG/1 ML MPF 30ML VIAL ONE (11:08)
[2021-08-09] MEDS ORDERED: ceFAZolin 330 MG/ML 1 GM VIAL ONE (11:09)
--- NOTE | 2021-08-09 11:24 | Anesthesiology Consultation ---
Date of Service August 09, 2021 Assessment & Plan (1) Encounter for pre-operative examination: History Surgery Operation Date: 08/07/21 09:10 Proposed Procedures p Perm Catheter Removal - Inocencio Pablo MD Operation Date: 08/09/21 09:20 Proposed Procedures p Right Incision and Drainage Calcaneous Osteomyelitis and Diabetic Ulcer - Nolberto Naqvi DO Height/Weight Height: 5 ft 6 in Weight: 83.3 kg Allergies Allergy/AdvReac Type Severity Reaction Status Date / Time cyclobenzaprine Allergy Unknown ON MED LIST Verified 08/04/21 17:39 [From Flexeril] Medications Home Medications Medication Instructions Recorded Confirmed Last Taken acetaminophen 325 mg tablet 650 mg PO Q4H PRN 08/04/21 08/04/21 Unknown (Tylenol) atorvastatin 40 mg tablet 80 mg PO QDD 08/04/21 08/04/21 Unknown bisacodyl 10 mg rectal suppository 10 mg AK DAILY PRN 08/04/21 08/04/21 Unknown darbepoetin jono in polysorbat 60 60 mcg SUBCUT WK 08/04/21 08/04/21 Unknown mcg/0.3 mL (polysorb) subcutaneous pen injector docusate sodium 100 mg capsule 100 mg PO BID 08/04/21 08/04/21 Unknown duloxetine 30 mg capsule,delayed 30 mg PO DAILY 08/04/21 08/04/21 Unknown release furosemide 80 mg tablet (Lasix) 80 mg PO BID 08/04/21 08/04/21 Unknown gabapentin 100 mg capsule 200 mg PO HS 08/04/21 08/04/21 Unknown levothyroxine 88 mcg tablet 88 mcg PO DAILYBB 08/04/21 08/04/21 Unknown magnesium hydroxide 400 mg/5 mL 30 ml PO DAILY PRN 08/04/21 08/04/21 Unknown oral suspension (Milk of Magnesia) midodrine 10 mg tablet 20 mg PO 3XWK 08/04/21 08/04/21 Unknown nystatin 100,000 unit/gram topical 1 applic TOPICAL BID 08/04/21 08/04/21 Unknown powder pantoprazole 40 mg tablet,delayed 40 mg PO BID 08/04/21 08/04/21 Unknown release piperacillin-tazobactam 2.25 gram 2.25 g IV Q8H 08/04/21 08/04/21 Unknown intravenous solution polyethylene glycol 3350 17 17 g PO QDL PRN 08/04/21 08/04/21 Unknown gram/dose oral powder (Miralax) sennosides 8.6 mg-docusate sodium 1 tab-cap PO QDL PRN 08/04/21 08/04/21 Unknown 50 mg tablet (Senokot-S) tamsulosin 0.4 mg capsule (Flomax) 0.4 mg PO HS 08/04/21 08/04/21 Unknown tramadol 50 mg tablet 50 mg PO Q12H PRN 08/04/21 08/04/21 Unknown vitamin B complex and vitamin C 1 cap PO DAILY 08/04/21 08/04/21 Unknown no.20-folic acid 1 mg capsule Active Medications Generic Name Dose Route Start Last Admin Trade Name Freq PRN Reason Stop Dose Admin Acetaminophen 650 mg 08/04/21 21:15 08/07/21 08:10 Acetaminophen 325 Mg Tab PO 09/03/21 21:14 650 mg Q4H PRN Administration mild pain (1,2,3) Atorvastatin Calcium 80 mg 08/05/21 16:30 08/08/21 16:28 Atorvastatin 40 Mg Tab PO 09/04/21 16:29 Not Given QDD HUEY Docusate Sodium 100 mg 08/05/21 09:00 08/08/21 20:28 Docusate Sodium 100 Mg Cap PO 09/04/21 08:59 100 mg BID HUEY Administration Duloxetine HCl 30 mg 08/05/21 09:00 08/08/21 08:41 Duloxetine Hcl 30 Mg Cap PO 09/04/21 08:59 Not Given DAILY HUEY Furosemide 80 mg 08/05/21 09:00 08/05/21 08:42 Furosemide 80 Mg Tab PO 09/04/21 08:59 80 mg BID17 HUEY Administration Gabapentin 200 mg 08/07/21 21:00 08/08/21 20:30 Gabapentin 100 Mg Cap PO 09/06/21 20:59 200 mg HS HUEY Administration Heparin Sodium (Porcine) 5,000 units 08/06/21 21:00 08/08/21 20:29 Heparin Sod 5,000 Unit/0.5 Ml Vial SQ 09/05/21 20:59 5,000 units Q12 HUEY Administration Cefazolin Sodium 1,000 mg in 7.5 mls @ 2.5 mls/min 08/08/21 16:00 08/08/21 16:28 Ancef 1000mg IV 09/19/21 15:59 2.5 mls/min DAILY@1600 [facility] Administration Protocol Ampicillin Sodium 2,000 mg/ 100 mls @ 200 mls/hr 08/08/21 16:00 08/08/21 17:31 Sodium Chloride IV 08/15/21 15:59 Infused DAILY@1600 [facility] Infusion Protocol Insulin Aspart 0 units 08/08/21 08:00 08/09/21 11:37 Insulin Aspart 100 Units/Ml 3 Ml Pen SC 09/07/21 07:59 Not Given ACHS HUEY Levothyroxine Sodium 88 mcg 08/05/21 06:30 08/09/21 05:31 Levothyroxine Sodium 88 Mcg Tablet PO 09/04/21 06:29 88 mcg DAILYBB HUEY Administration Midodrine 10 mg 08/07/21 14:00 08/08/21 16:28 Midodrine Hcl 10 Mg Tab PO 09/06/21 13:59 Not Given TIDM HUEY Nystatin 5 ml 08/05/21 17:00 08/08/21 20:29 Nystatin Susp 500,000 U/5 Ml Udc PO 08/15/21 16:59 5 ml QID HUEY Administration Oxycodone HCl 5 mg 08/06/21 17:46 08/08/21 11:47 Oxycodone Hcl Ir 5 Mg Tab (Immediate Release) PO 08/20/21 17:45 5 mg Q6H PRN Administration Moderate Pain (4,5,6) on NRS Oxycodone HCl 10 mg 08/06/21 17:46 08/08/21 02:20 Oxycodone Hcl Ir 5 Mg Tab (Immediate Release) PO 08/20/21 17:45 10 mg Q6H PRN Administration Severe Pain (7,8,9,10) on NRS Pantoprazole Sodium 40 mg 08/05/21 09:00 08/08/21 20:30 Pantoprazole 40 Mg Tab PO 09/04/21 08:59 40 mg BID HUYE Administration NPO Date Last Intake of Fluids: 08/06/21 Time Last Intake of Fluids: 18:00 Date Last Intake of Solids: 08/06/21 Time Last Intake of Solids: 18:00 Past Medical History Medical History Anemia in chronic renal disease Aortic stenosis Chronic kidney disease requiring chronic dialysis Chronic respiratory failure with hypoxia Coronary artery disease Depression Diabetic peripheral neuropathy History of CVA (cerebrovascular accident) History of gastrointestinal bleeding Hypertension Hypothyroidism Ischemic cardiomyopathy Obesity Obstructive sleep apnea PAD (peripheral artery disease) Social History Smoking Status: Never smoker Do You Dip or Chew Tobacco: No Hx Alcohol Use: No Hx Substance Use: No substance use type: does not use Physical Exam Vital Signs Last Vital Signs Temp 36.8 C 08/09/21 11:00 Pulse 96 H 08/09/21 11:00 Resp 16 08/09/21 11:00 BP 120/66 08/09/21 11:00 Pulse Ox 96 08/09/21 11:00 Testing Laboratory Results 08/09/21 06:45 08/09/21 06:45 PT 13.2 Seconds (9.0-12.0) H 08/06/21 05:07 INR 1.3 (0.9-1.1) H 08/06/21 05:07 APTT 31.0 Seconds (21.0-31.0) 08/04/21 19:21 Hemoglobin A1c 5.6 % (4.5-5.6) 08/05/21 04:58 Urine Color Dark Yellow 08/04/21 19:10 Urine Appearance Turbid (Clear) A 08/04/21 19:10 Urine pH 5.0 (4.5-7.5) 08/04/21 19:10 Ur Specific [place] 1.016 (1.000-1.030) 08/04/21 19:10 Urine Protein 3+ (Negative) H 08/04/21 19:10 Urine Glucose (UA) Trace (Negative) H 08/04/21 19:10 Urine Ketones Trace (Negative) H 08/04/21 19:10 Urine Nitrite Negative (Negative) 08/04/21 19:10 Ur Leukocyte Esterase 3+ (Negative) H 08/04/21 19:10 Urine WBC (Auto) >30 /hpf (0-5) H 08/04/21 19:10 Urine RBC (Auto) 5-10 /hpf (0-4) H 08/04/21 19:10 U Hyaline Cast (Auto) 1-5 /lpf (0-5) 08/04/21 19:10 U Epithel Cells (Auto) >30 /lpf (0-5) H 08/04/21 19:10 Urine Bacteria (Auto) 4+ (Negative) H 08/04/21 19:10 08/07/21 Unknown Catheter Tip Culture - Final Catheter Tip, Perm Cathether No growth 08/05/21 10:26 Aerobic Blood Culture - Preliminary Blood Staphylococcus aureus Anaerobic Blood Culture - Preliminary No growth in Anaerobic bottle after 48 hours. 08/08/21 05:13 Aerobic Blood Culture - Preliminary Blood No growth in Aerobic bottle after 24 hours. Anaerobic Blood Culture - Preliminary No growth in Anaerobic bottle after 24 hours. 08/08/21 05:00 Aerobic Blood Culture - Preliminary Blood No growth in Aerobic bottle after 24 hours. Anaerobic Blood Culture - Preliminary No growth in Anaerobic bottle after 24 hours. 08/05/21 13:18 Aerobic Blood Culture - Preliminary Blood Staphylococcus aureus Anaerobic Blood Culture - Preliminary No growth in Anaerobic bottle after 48 hours. 08/04/21 17:20 Aerobic Blood Culture - Preliminary Blood Staphylococcus aureus Anaerobic Blood Culture - Preliminary Gram positive cocci clusters 08/05/21 10:21 Aerobic Blood Culture - Preliminary Blood Staphylococcus species Anaerobic Blood Culture - Preliminary No growth in Anaerobic bottle after 48 hours. 08/04/21 19:10 Urine Culture - Final Urine,Straight Cath Enterococcus faecalis 08/04/21 17:18 Aerobic Blood Culture - Preliminary Blood Staphylococcus aureus Anaerobic Blood Culture - Preliminary No growth in Anaerobic bottle after 48 hours. 08/09/21 08/09/21 11:06 07:33 POC Glucose 109 H 113 H Electrocardiogram Date: 08/06/21 Sinus tachycardia Left axis deviation Old Anteroseptal infarct (cited on or before 04-AUG-2021) Old Inferior infarct Abnormal ECG When compared with ECG of 04-AUG-2021 17:22, T wave inversion now evident in Anterior leads Confirmed by Alfredo So ([id number]) on 08/06/2021 2:08:31 PM Chest X-Ray Date: 08/04/21 IMPRESSION: 1. Low lung volumes with linear bilateral opacities which favor atelectasis on this supine exam. 2. Mild enlargement of the cardiac silhouette. No evidence for pulmonary edema. 3. No pneumothorax identified. Echocardiogram Date: 08/06/21 EF: 30-35% LV Function: dysfunctional RWMA: + hypokinetic Valvular Disease: + (moderate to severe)
[2021-08-09] MEDS: INSULIN ASPART 100 UNITS/ML 3 ML PEN SC SCH ×3 (11:37→17:17)
[2021-08-09] MEDS ORDERED: ATROPINE SULFATE 0.1 MG/ML 10ML SYR IV PRN (11:44)
[2021-08-09] MEDS ORDERED: ePHEDrine sulfate 50 MG/ML AMP IV PRN (11:44)
[2021-08-09] MEDS ORDERED: ONDANSETRON INJ 2 MG/ML 2 ML VIAL IV PRN ×2 (11:44→15:56)
[2021-08-09] MEDS ORDERED: PROPOFOL IV EMULSION 10 MG/ML 20 ML VIAL IV ONE ×4 (11:51→11:53)
[2021-08-09] MEDS ORDERED: LIDOCAINE 2% 2 ML VIAL/AMP(20MG/ML) INFIL ONE (11:51)
[2021-08-09] MEDS ORDERED: ROPIVACAINE 0.5% 5 MG/ML 30 ML VIAL ONE (13:05)
[2021-08-09] MEDS ORDERED: Nursing to Pharmacy Communication SCH (13:15)
--- NOTE | 2021-08-09 13:19 | Nephrology Progress Note ---
Date of Service August 09, 2021 Assessment & Plan Admission and Anticipated Discharge Date Admission Date: August 04, 2021 Subjective Subjective S--feels weak and c/o some pain. does not talk much. making urine ?/ amount. CVC is out. K is low. Not eating much PHYSICAL EXAMINATION: GENERAL: Elderly white female who is quite sick at this time HEENT: Mucous membrane is moist. NECK: Supple. No jugular venous distention. CHEST: Bilaterally clear to auscultation. Limited quality of the exam secondary to lack of inspiratory effort. CARDIOVASCULAR: S1 and S2 tachycardic, regular. No murmur heard. ABDOMEN: Soft, nontender. EXTREMITIES: Show no edema. LABORATORY TEST: Blood culture is positive for S Aureus. CT chest and chest x- ray did not show any overt pulmonary edema or congestive heart failure. There is some possibility of diskitis, some diffuse ground-glass opacity bilaterally in the lung. Abdomen and pelvis CT scan showed mild pericholecystic infiltration. Gallbladder ultrasound already done and there was not any major abnormal finding. Calcaneus x-ray is suggestive of osteomyelitis. ASSESSMENT AND PLAN: A 71-year-old female who presented to the hospital from the [facility] she was getting rehabilitation following a prolonged hospitalization. I have been consulted for dialysis management. She is a new start of dialysis within the last month with acute renal failure in the setting of extensive medical problems and progression of her underlying CKD IV. End-stage renal disease: She does not have any evidence of overt fluid overload or congestive heart failure.Also K is only 3.4 creat is still 3.5 so no need of Dialysis today. She may be able to go few more days without dialysis as she is a new HD start and still has decent residual renal function.Next HD will be after new CVC placed or if emergent will do by temp Line. Decision about dialysis on daily basis. Still with ongoing issues--Wound debridement and so on so not the best time for tunnelled CVC. Bacteremia- MSSA. HD cath out. Will do line holiday for next few days. Also findings suggestive of osteomyelitis in her calcaneus as well as possible d iskitis. We will also need to repeat blood cultures on a daily basis for the next few days. Consider infectious disease consult given complicated infection situation here to help guide the choice and the duration of the antibiotics. BC from 4/4 is negative. Consider ruling out endocarditis also. In OR today for surgical debridement Results & Data ([facility]) Vital Signs (Past 12 Hours) Vital Signs Temp Pulse Pulse Resp BP Pulse Ox 08/09/21 11:00 36.8 C 96 H 16 120/66 96 08/09/21 08:00 36.5 C 91 H 90 16 111/71 95 08/09/21 04:29 36.6 C 70 16 132/79 98
[2021-08-09] MEDS: PANTOprazole 40 MG TAB PO SCH ×2 (13:27→20:13)
[2021-08-09] MEDS: MIDODRINE HCL 10 MG TAB PO SCH ×3 (13:27→17:13)
[2021-08-09] MEDS: NYSTATIN SUSP 500,000 U/5 ML UDC PO SCH ×4 (13:28→20:12)
[2021-08-09] MEDS: DOCUSATE SODIUM 100 MG CAP PO SCH ×2 (13:28→20:12)
[2021-08-09] MEDS ORDERED: VASOPRESSIN 20 UNIT/ML VIAL ONE (13:32)
--- NOTE | 2021-08-09 14:53 | Anesthesiology Progress Note ---
Date of Service August 09, 2021 Anesthesia Post Procedure Vital Signs Vital Signs: Temp Pulse Pulse Pulse Resp BP BP 08/09/21 11:00 36.8 C 96 H 16 120/66 08/09/21 08:00 36.5 C 91 H 90 16 111/71 08/09/21 04:29 36.6 C 70 16 132/79 08/09/21 00:00 101 H 08/08/21 23:49 101/64 08/08/21 23:36 36.3 C L 104 H 16 08/08/21 19:11 36.4 C L 98 H 18 08/08/21 16:45 36.8 C 68 18 124/71 08/08/21 16:00 93 H 13 08/08/21 15:00 92 H 13 109/67 BP Pulse Ox 08/09/21 11:00 96 08/09/21 08:00 95 08/09/21 04:29 98 08/09/21 00:00 08/08/21 23:49 08/08/21 23:36 85/54 L 90 08/08/21 19:11 113/73 97 08/08/21 16:45 96 08/08/21 16:00 08/08/21 15:00 Pain Intensity Left Knee: Pain Intensity: 4 Transfer of Care Handoff Completed per policy Notes Mental Status: alert / awake / arousable and participated in evaluation Patient Amnestic to Procedure: Yes Nausea / Vomiting: adequately controlled Pain: adequately controlled Airway Patency, RR, SpO2: stable & adequate BP & HR: stable & adequate Hydration State: stable & adequate Anesthetic Complications: no major complications apparent and Pt Satisfied with anesthetic care
--- NOTE | 2021-08-09 15:10 | XRay Report ---
RIGHT ANKLE 3 VIEWS CLINICAL HISTORY: Postoperative examination. FINDINGS: 3 views of the right ankle are correlated with calcaneal radiographs dated 08/04/2021. The sk eletal structures are osteopenic. No acute fracture is identified. There is postoperative change from resection of the posterior calcaneus. Soft tissue edema and subcutaneous gas overlying the calcaneus are expected postoperative changes. There is chronic posttraumatic deformity of the distal tibia and fibula. Postoperative change is noted in the distal tibial shaft. Benign appearing periostitis is se en in the distal tibial and fibular shafts. Advanced degenerative changes noted in the ankle and hind foot. There is advanced atherosclerotic calcification of the regional arteries. Numerous soft tissue phleboliths are observed. IMPRESSION: 1. There is postoperative change from resection of the dorsal calcaneus. 2. No acute fracture is seen. 3. Osteopenia with advanced chronic/degenerative changes as above. Electronically signed by: Anand Pruett M.D. 08/09/2021 3:08 PM
[2021-08-09] MEDS: NEPHROCAPS PO SCH (15:22)
[2021-08-09] MEDS ORDERED: bisacodyL 10 MG SUPP PR PRN (15:56)
[2021-08-09] MEDS ORDERED: MAGNESIUM HYDROXIDE SUSP 30 ML UDC PO PRN (15:56)
[2021-08-09] MEDS ORDERED: NALOXONE HCL 0.4 MG/1 ML VIAL/CARP IV PRN (15:56)
[2021-08-09] MEDS ORDERED: METOCLOPRAMIDE HCL INJ 5 MG/ML 2 ML VIAL IV PRN (15:56)
[2021-08-09] MEDS ORDERED: diphenhydrAMINE Capsule 25 MG CAP PO PRN (15:56)
[2021-08-09] MEDS: DULoxetine HCL 30 MG CAP PO SCH (15:58)
--- NOTE | 2021-08-09 16:39 | Hospitalist Progress Note ---
Date of Service August 09, 2021 Assessment & Plan (1) Septic shock: Plan: With MSSA Septicemia BCxs with MSSA from 08/04, repeat BCxs 08/05 now also with MSSA Blood cultures from 08/08-no growth to date Ur cx with Enterococcus faecalis sensitive to ampicillin, daptomycin, pen icillin, vancomycin Surface wound culture from right foot growing MSSA Catheter tip from hemodialysis catheter culture-no growth-final Wound culture intraoperatively from 08/09-pending Source -combination of osteomyelitis with diabetic foot wound, UTI, bacteremia Initially on levophed but weaned off and transitioned to midodrine 10 mg p.o. 3 times daily and transitioned out of ICU Continue midodrine 10 mg p.o. 3 times daily on all days rather than just on dialysis days as prior to admission Random cortisol level 18 but did receive 1 dose of IV hydrocortisone on 08/06 Transthoracic ECHO no valvular vegetation Hemodialysis catheter removed on 08/07 and catheter tip sent for culture-no growth MRI right ankle with osteomyelitis of the calcaneus, Charcot foot, and high- grade tears of the posterior medial tendons Now status post right foot ulcer debridement and calcanectomy with Dr. Naqvi on 08/09 -Continue to follow repeat blood cultures -Initially on zosyn and vancomycin for broad-spectrum coverage due to diabetic foot wound as well as MSSA bacteremia-now transitioned to IV Ancef for MSSA, and IV ampicillin for Enterococcus UTI -Appreciate orthopedic management -Vascular surgery consulted as below for severe PAD-plans on intervention after bacteremia clears-likely next week -Consider infectious disease consultation on Thursday to guide length of treatment but suspect she will need IV Ancef for about 4 weeks. The IV ampicillin can be discontinued after 7 days including the time she received Zosyn and Vanco -Follow CBC, CMP, CRP (2) Bacteremia: Plan: as above (3) Acute osteomyelitis of right calcaneus: Plan: Suspected based on plain films. Confirmed with MRI WIth open draining foul smelling wound on right heel Treatment plan as above (4) PAD (peripheral artery disease): Plan: With severe PAD based on clinical exam and bilateral lower extremity arterial Dopplers showing advanced peripheral vascular disease with multifocal bilateral vascular occlusions Vascular surgery consulted-plan for intervention after bacteremia clears likely next week (5) Discitis of thoracic region: Plan: Suspected based on CT chest findings. May need MRI t-spine but does not complain of pain at the site-does not seem likely source continue with IV abx as above (6) Acute metabolic encephalopathy: Plan: 2nd to sepsis/septic shock, renal failure Ongoing but seems improved today Supportive care, redirection, and treatment of infection (7) UTI (urinary tract infection): Plan: UA abnormal urine cx with Enterococcus faecalis as above Continue IV antibiotic therapy. (8) Chronic kidney disease requiring chronic dialysis: Plan: Date of HD initiation uncertain but she reports it was approximately 3 weeks prior to admission while hospitalized in [place]. [facility] Nephrology consulted for HD needs. Hemodialysis catheter removed on 08/07 due to bacteremia s/p HD on 08/06 On a line holiday for couple of days as per nephrology, will need a new temporary line versus new PermCath prior to next dialysis session Electrolytes are okay in fact potassium is slightly low, she is not volume overloaded, not acidotic. She does not need urgent dialysis at this time and can likely wait until cultures are clear to place new dialysis catheter next week Follow BMP (9) Depression: Plan: Recently on 120mg of cymbalta. Dose reduced while patient was at [facility]. Continue 30mg daily. (10) Coronary artery disease: Plan: History uncertain. With WMAs on ECHO here Mild troponin elevation c/w myocardial demand ischemia rather than ACS. Cardiology consult appreciated continue statin, not on ASA, beta noel-had recent GI bleed and should not be on antiplatelets right now (11) Hypertension: Plan: lasix on hold from home BPs low as above with shock (12) Diabetic peripheral neuropathy: Plan: Hold gabapentin in light of acute metabolic encephalopathy. Cont cymbalta. (13) Ischemic cardiomyopathy: Plan: noted to have EF 30-35% on ECHO with WMAs, mod-severe , elevated RVSP not volume overloaded holding home lasix BPs cannot tolerate beta noel or hydralazine/isosorbide and renal function can't handle ACEi/ARB (14) Hypothyroidism: Plan: TSH wnl. Continue levothyroxine 88mcg daily. (15) Anemia in chronic renal disease: Plan: Hb 10.1 this am and stable. CBC am. Iron studies show normal serum iron, transferrin sat not performed B12 and folate normal (16) Chronic respiratory failure with hypoxia: Plan: 2L NC 02 at baseline. (17) Hypomagnesemia: Plan: replaced and normalized (18) Aortic stenosis: Plan: mod-severe on ECHO here Will need to be followed as an outpatient (19) Abdominal pain: Plan: CT a/p with ?pericholecystic fluid. RUQ u/s without findings to suggest acute cholecystitis. Lower abd pain may be due to constipation (moderate stool in rectum on CT). Dulcolax suppox x 1 was given. No further abdominal pain (20) Hyperglycemia: Plan: Hba1c 5.6%, but may be spurious due to anemia. Significant hyperglycemia now improved Pharmacy is managing insulin (21) History of GI bleed: Plan: recent AVM bleeding/UGI bleed as per reports from hospitalization in [place] continue PPI bid Avoiding antiplatelets for now (22) Candidiasis of mouth and esophagus: Plan: nystatin 5cc qid swish/spit. (23) Coagulopathy: Plan: INR 1.4. No evidence of DIC. Liver disease? vitamin K deficiency? other? repeat INR now 1.3 consider vit K supplementation. (24) Obstructive sleep apnea: Plan: History of. Not on CPAP by report. (25) Obesity: Plan: BMI 30 (26) DVT prophylaxis: Plan: Heparin SQ Plan: Dispo-continued stay in PCU I had a long discussion with her sister, Romina, on the phone on 08/08. We discussed goals of care. She understands how sick her sister is and wants us to try to help her, but is not sure that her sister would want an amputation if it came to that. She also does not want to see her sister suffer and we also discussed the possibility of hospice in the future if she continues to decline. Admission and Anticipated Discharge Date Admission Date: August 04, 2021 Subjective Patient seen right after return from PACU from debridement of right foot ulcer and calcanectomy. She reports having some pain in the foot. Denies pain elsewhere. No nausea, no shortness of breath. Telemetry with normal sinus rhythm with rates in the 90s to 100s. Review of Systems Review of Systems: All systems reviewed & are unremarkable except as noted in HPI & below Physical Exam Constitutional: WD/WN, vitals as above Eyes: + anicteric sclerae Neck: trachea midline, no thyromegaly Respiratory: normal respiratory effort, lungs clear to auscultation Cardiovascular: Rate/Rhythm: regular rate and regular rhythm Heart Sounds: + murmur (3/6 STAN at RUSB) Chest (Breasts): Chest: + abnormal inspection of chest (Incisional wound right anterior chest clean dry intact) Gastrointestinal (Abdomen): normal bowel sounds, soft, nontender, no hepatosplenomegaly Musculoskeletal: Extremities: + extremities abnormal to inspection (Right leg and foot in splint with Luis wrap), no cyanosis and no clubbing Neurologic: moves all extremities and awake; no focal motor deficits Psychiatric: Orientation: alert, oriented to person and cooperative Lymphatic: no lymphedema Results & Data Results & Data ([facility]) Vital Signs (Past 12 Hours) Vital Signs Temp Pulse Pulse Resp BP Pulse Ox 08/09/21 16:16 36.6 C 79 18 96/62 L 92 08/09/21 16:00 36.4 C L 92 H 95 H 18 98/66 L 91 08/09/21 15:56 36.4 C L 95 H 18 98/66 L 91 08/09/21 15:10 36.6 C 93 H 13 98/59 L 93 08/09/21 15:00 95 H 20 97/63 L 90 08/09/21 14:50 97 H 14 116/67 96 08/09/21 14:40 90 17 114/71 96 08/09/21 14:30 36.5 C 88 16 119/74 98 08/09/21 11:00 36.8 C 96 H 16 120/66 96 08/09/21 08:00 36.5 C 91 H 90 16 111/71 95 Laboratory Results 08/09/21 08/09/21 08/09/21 Range/Units 16:38 15:45 14:30 WBC (4.8-10.8) K/uL RBC (4.2-5.4) M/uL Hgb (12.0-16.0) g/dL Hct (37-47) % MCV (80-100) fL MCH (25-34) pg MCHC (32-36) g/dL RDW Std Deviation (36.4-46.3) fL RDW Coeff of Juno (11.5-14.5) % Plt Count (130-400) K/uL MPV (7.4-10.4) fL Immature Gran % (Auto) % Neut % (Auto) % Lymph % (Auto) % Pike % (Auto) % Eos % (Auto) % Baso % (Auto) % Neut # (Auto) (1.4-6.5) K/uL Lymph # (Auto) (1.2-3.4) K/uL Pike # (Auto) (0.11-0.59) K/uL Eos # (Auto) (0-0.5) K/uL Baso # (Auto) (0-0.2) K/uL Immature Gran # (Auto) (0.00-0.02) K/uL Sodium (136-145) mmol/L Potassium (3.5-5.1) mmol/L Chloride (98-107) mmol/L Carbon Dioxide (21-32) mmol/L Anion Gap (3-11) BUN (6-23) mg/dl Creatinine (0.6-1.2) mg/dl Est Cr Clr Drug Dosing ml/min Est GFR ( Amer) ml/min Est GFR (Non-Af Amer) ml/min BUN/Creatinine Ratio (10-20) Glucose (70-99(Fasting)) mg/dl POC Glucose 128 H 128 H (70-99) mg/dl Calcium (8.5-10.1) mg/dl Magnesium (1.7-2.4) mg/dl Total Bilirubin (0.2-1.0) mg/dl AST (13-39) U/L ALT (7-52) U/L Alkaline Phosphatase (34-104) U/L Total Protein (6.0-8.3) gm/dl Albumin (3.4-5.0) gm/dl Globulin (2.5-4.0) gm/dl Albumin/Globulin Ratio (0.9-2) Hepatitis Be Antibody Pending Hepatitis Be Antigen Pending 08/09/21 08/09/21 08/09/21 Range/Units 11:06 07:33 06:45 WBC (4.8-10.8) K/uL RBC (4.2-5.4) M/uL Hgb (12.0-16.0) g/dL Hct (37-47) % MCV (80-100) fL MCH (25-34) pg MCHC (32-36) g/dL RDW Std Deviation (36.4-46.3) fL RDW Coeff of Juno (11.5-14.5) % Plt Count (130-400) K/uL MPV (7.4-10.4) fL Immature Gran % (Auto) % Neut % (Auto) % Lymph % (Auto) % Pike % (Auto) % Eos % (Auto) % Baso % (Auto) % Neut # (Auto) (1.4-6.5) K/uL Lymph # (Auto) (1.2-3.4) K/uL Pike # (Auto) (0.11-0.59) K/uL Eos # (Auto) (0-0.5) K/uL Baso # (Auto) (0-0.2) K/uL Immature Gran # (Auto) (0.00-0.02) K/uL Sodium 138 (136-145) mmol/L Potassium 3.4 L (3.5-5.1) mmol/L Chloride 103 (98-107) mmol/L Carbon Dioxide 25 (21-32) mmol/L Anion Gap 10 (3-11) BUN 31 H (6-23) mg/dl Creatinine 3.59 H D (0.6-1.2) mg/dl Est Cr Clr Drug Dosing 15.9 ml/min Est GFR ( Amer) 14.1 ml/min Est GFR (Non-Af Amer) 12.2 ml/min BUN/Creatinine Ratio 8.6 L (10-20) Glucose 107 H (70-99(Fasting)) mg/dl POC Glucose 109 H 113 H (70-99) mg/dl Calcium 7.7 L (8.5-10.1) mg/dl Magnesium 2.0 (1.7-2.4) mg/dl Total Bilirubin 0.5 (0.2-1.0) mg/dl AST 30 (13-39) U/L ALT 11 (7-52) U/L Alkaline Phosphatase 67 (34-104) U/L Total Protein 5.1 L (6.0-8.3) gm/dl Albumin 2.3 L (3.4-5.0) gm/dl Globulin 2.8 (2.5-4.0) gm/dl Albumin/Globulin Ratio 0.8 L (0.9-2) Hepatitis Be Antibody Hepatitis Be Antigen 08/09/21 08/08/21 Range/Units 06:45 20:36 WBC 9.10 (4.8-10.8) K/uL RBC 3.63 L (4.2-5.4) M/uL Hgb 10.1 L (12.0-16.0) g/dL Hct 31.6 L (37-47) % MCV 87.1 (80-100) fL MCH 27.8 (25-34) pg MCHC 32.0 (32-36) g/dL RDW Std Deviation 57.6 H (36.4-46.3) fL RDW Coeff of Juno 18.1 H (11.5-14.5) % Plt Count 240 (130-400) K/uL MPV 9.9 (7.4-10.4) fL Immature Gran % (Auto) 0.5 % Neut % (Auto) 51.6 % Lymph % (Auto) 32.6 % Pike % (Auto) 11.8 % Eos % (Auto) 3.0 % Baso % (Auto) 0.5 % Neut # (Auto) 4.69 (1.4-6.5) K/uL Lymph # (Auto) 2.97 (1.2-3.4) K/uL Pike # (Auto) 1.07 H (0.11-0.59) K/uL Eos # (Auto) 0.27 (0-0.5) K/uL Baso # (Auto) 0.05 (0-0.2) K/uL Immature Gran # (Auto) 0.05 H (0.00-0.02) K/uL Sodium (136-145) mmol/L Potassium (3.5-5.1) mmol/L Chloride (98-107) mmol/L Carbon Dioxide (21-32) mmol/L Anion Gap (3-11) BUN (6-23) mg/dl Creatinine (0.6-1.2) mg/dl Est Cr Clr Drug Dosing ml/min Est GFR ( Amer) ml/min Est GFR (Non-Af Amer) ml/min BUN/Creatinine Ratio (10-20) Glucose (70-99(Fasting)) mg/dl POC Glucose 132 H (70-99) mg/dl Calcium (8.5-10.1) mg/dl Magnesium (1.7-2.4) mg/dl Total Bilirubin (0.2-1.0) mg/dl AST (13-39) U/L ALT (7-52) U/L Alkaline Phosphatase (34-104) U/L Total Protein (6.0-8.3) gm/dl Albumin (3.4-5.0) gm/dl Globulin (2.5-4.0) gm/dl Albumin/Globulin Ratio (0.9-2) Hepatitis Be Antibody Hepatitis Be Antigen PG Care Time/CCT Total # of Minutes Spent Total Time Spent with Patient: Total time spent is greater than 50% in coordination of care (as documented) at patient's floor/unit and/or counseling patient: Coding Level of Care Code 65671 Subseq Hosp Care Lvl 3 Diagnoses Septic shock A41.9; R65.21 Bacteremia R78.81 Acute osteomyelitis of right calcaneus M86.171 PAD (peripheral artery disease) I73.9 Discitis of thoracic region M46.44 Acute metabolic encephalopathy G93.41 UTI (urinary tract infection) N39.0 Chronic kidney disease requiring chronic dialysis N18.6; Z99.2 Depression F32.A Coronary artery disease I25.10 Hypertension I10 Diabetic peripheral neuropathy E11.42 Ischemic cardiomyopathy I25.5 Hypothyroidism E03.9 Anemia in chronic renal disease N18.9; D63.1 Chronic respiratory failure with hypoxia J96.11 Hypomagnesemia E83.42 Aortic stenosis I35.0 Abdominal pain R10.9 Hyperglycemia R73.9 History of GI bleed Z87.19 Candidiasis of mouth and esophagus B37.81; B37.0 Coagulopathy D68.9 Obstructive sleep apnea G47.33 Obesity E66.9 DVT prophylaxis Z29.9
[2021-08-09] MEDS: ATORVASTATIN 40 MG TAB PO SCH (17:03)
[2021-08-09] MEDS: AMPICILLIN 2,000 MG in SODIUM CHLOR 0.9% AD-VAN 100 ML IV SCH (17:04)
[2021-08-09] MEDS: ceFAZolin 1000MG 1,000 MG/7.5 ML SYR IV SCH (17:08)
[2021-08-09] MEDS: INSULIN ASPART PER UNIT SC SCH ×2 (18:15→20:32)
[2021-08-09] MEDS: GABAPENTIN 100 MG CAP PO SCH (20:12)
[2021-08-09] MEDS: SENNA 8.6 MG TAB PO SCH (20:13)
[2021-08-09] MEDS: oxyCODONE HCL IR 5 MG TAB (IMMEDIATE RELEASE) PO PRN (20:55)
[2021-08-09] MEDS ORDERED: DOCUSATE SODIUM 100 MG CAP PO SCH (21:00)
[2021-08-10 06:06] LABS: Basophils # (auto) 0.06 K/uL (0-0.2); Basophils % (auto) 0.6 %; Eosinophils # (auto) 0.45 K/uL (0-0.5); Eosinophils % (auto) 4.3 %; Hematocrit (blood only) 31.1 % (37-47); Hemoglobin 9.9 g/dL (12.0-16.0); Immature Granulocytes # (auto) 0.07 K/uL (0.00-0.02); Immature Granulocytes % (auto) 0.7 %; Lymphocytes # (auto) 3.12 K/uL (1.2-3.4); Lymphocytes % (auto) 30.1 %; Mean Corpuscular Hemoglobin 27.9 pg (25-34); Mean Corpuscular Hgb Conc 31.8 g/dL (32-36); Mean Corpuscular Volume 87.6 fL (80-100); Mean Platelet Volume 10.2 fL (7.4-10.4); Monocytes # (auto) 1.38 K/uL (0.11-0.59); Monocytes % (auto) 13.3 %; Neutrophils # (auto) 5.28 K/uL (1.4-6.5); Platelet Count 281 K/uL (130-400); RDW Coefficient of Variation 17.8 % (11.5-14.5); RDW Standard Deviation 56.4 fL (36.4-46.3); Red Blood Count 3.55 M/uL (4.2-5.4); White Blood Count 10.36 K/uL (4.8-10.8)
[2021-08-10] MEDS: LEVOTHYROXINE SODIUM 88 MCG TABLET PO SCH (06:17)
[2021-08-10 06:33] LABS: Albumin Globulin Ratio 0.8 (0.9-2); Albumin Level 2.3 gm/dl (3.4-5.0); BUN Creatinine Ratio 8.5 (10-20); Bilirubin,Total 0.5 mg/dl (0.2-1.0); C Reactive Protein 5.52 mg/dl (0-0.5); Calcium 7.5 mg/dl (8.5-10.1); Creatinine Clr Calc Pharmacy 14.7 ml/min; Est GFR (African American) 12.8 ml/min; Est GFR (Non-African American) 11.1 ml/min; Globulin 2.9 gm/dl (2.5-4.0); Total Protein 5.2 gm/dl (6.0-8.3)
[2021-08-10] MEDS: DOCUSATE SODIUM 100 MG CAP PO SCH ×2 (08:08→20:53)
[2021-08-10] MEDS: MIDODRINE HCL 10 MG TAB PO SCH ×3 (08:09→16:28)
[2021-08-10] MEDS: NEPHROCAPS PO SCH (08:09)
[2021-08-10] MEDS: NYSTATIN SUSP 500,000 U/5 ML UDC PO SCH ×5 (08:10→21:09)
[2021-08-10] MEDS: PANTOprazole 40 MG TAB PO SCH ×2 (08:10→20:54)
[2021-08-10] MEDS: INSULIN ASPART PER UNIT SC SCH ×4 (08:17→20:52)
[2021-08-10] MEDS ORDERED: POTASSIUM CHLORIDE CRTAB 20 MEQ TABCR PO STA ×2 (08:32→12:41)
[2021-08-10] MEDS ORDERED: MULTIVITAMIN TAB PO SCH (09:00)
[2021-08-10] MEDS: DULoxetine HCL 30 MG CAP PO SCH (09:11)
--- NOTE | 2021-08-10 12:09 | Orthopedic Progress Note ---
Date of Service August 10, 2021 Assessment & Plan (1) Acute osteomyelitis of right calcaneus: Plan: POD 1 s/p Partial Calcanectomy with Irrigation and Debridement of Heel Ulcer, Skin, Fascia, Subcutaenous Tissue and Tendon PT/OT. NWB on RLE. Pain management as written. DVT prophylaxis as per Medicine Service. Ok to restart Heparin. Dressing change tomorrow. Admission and Anticipated Discharge Date Admission Date: August 04, 2021 Subjective POD 1 Pt sitting up in bed eating lunch. No complaints. Pain controlled. Physical Exam Physical Exam: Dressings intact. Toes pink/warm. Toes mobile. Results & Data ([facility]) Vital Signs (Past 12 Hours) Vital Signs Temp Pulse Pulse Resp BP Pulse Ox 08/10/21 11:49 36.4 C L 93 H 17 94/61 L 95 08/10/21 08:00 97 H 08/10/21 07:30 36.4 C L 92 H 19 100/63 94 08/10/21 03:00 36.6 C 101 H 18 85/50 L 96
--- NOTE | 2021-08-10 12:37 | Nephrology Progress Note ---
Date of Service August 10, 2021 Assessment & Plan Admission and Anticipated Discharge Date Admission Date: August 04, 2021 Subjective Subjective S--feels weak and c/o some pain. does not talk much. making urine ?/ amount. CVC is out. K is low. Not eating much. BP somewhat soft PHYSICAL EXAMINATION: GENERAL: Elderly white female who is quite sick at this time HEENT: Mucous membrane is moist. NECK: Supple. No jugular venous distention. CHEST: Bilaterally clear to auscultation. Limited quality of the exam secondary to lack of inspiratory effort. CARDIOVASCULAR: S1 and S2 tachycardic, regular. No murmur heard. ABDOMEN: Soft, nontender. EXTREMITIES: Show no edema. LABORATORY TEST: Blood culture is positive for S Aureus. CT chest and chest x- ray did not show any overt pulmonary edema or congestive heart failure. There is some possibility of diskitis, some diffuse ground-glass opacity bilaterally in the lung. Abdomen and pelvis CT scan showed mild pericholecystic infiltration. Gallbladder ultrasound already done and there was not any major abnormal finding. Calcaneus x-ray is suggestive of osteomyelitis. ASSESSMENT AND PLAN: A 71-year-old female who presented to the hospital from the rehabilitation [facility] where she was getting rehabilitation following a prolonged hospitalization. I have been consulted for dialysis management. She is a new start of dialysis within the last month with acute renal failure in the setting of extensive medical problems and progression of her underlying CKD IV. End-stage renal disease:She does not have any evidence of overt fluid overload or congestive heart failure.Also K is only 3.4 creat is still 3.5 so no need of Dialysis today. She may be able to go few more days without dialysis as she is a new HD start and still has decent residual renal function.Next HD will be after new CVC placed or if emergent will do by temp Line. Decision about dialysis on daily basis. NO dialysis today. Still with ongoing issues--Wound debridement and so on so not the best time for tunnelled CVC. NS 1000 ml today given her PO intake is low and BP is low. K is low so give 40 meq today. Bacteremia- MSSA. HD cath out. Will do line holiday for next few days. Also findings suggestive of osteomyelitis in her calcaneus as well as possible diskitis. We will also need to repeat blood cultures on a daily basis for the next few days. Consider infectious disease consult given complicated infection situation here to help guide the choice and the duration of the antibiotics. BC from 08/05 is negative. Consider ruling out endocarditis also. In OR today for surgical debridement Results & Data ([facility]) Vital Signs (Past 12 Hours) Vital Signs Temp Pulse Pulse Resp BP Pulse Ox 08/10/21 11:49 36.4 C L 93 H 17 94/61 L 95 08/10/21 08:00 97 H 08/10/21 07:30 36.4 C L 92 H 19 100/63 94 08/10/21 03:00 36.6 C 101 H 18 85/50 L 96
[2021-08-10] MEDS: SODIUM CHLORIDE 0.9% 1000ML 1,000 ML IV SCH (13:20)
[2021-08-10] MEDS: ceFAZolin 1000MG 1,000 MG/7.5 ML SYR IV SCH (15:16)
[2021-08-10] MEDS: AMPICILLIN 2,000 MG in SODIUM CHLOR 0.9% AD-VAN 100 ML IV SCH (15:16)
[2021-08-10] MEDS: ATORVASTATIN 40 MG TAB PO SCH (16:26)
--- NOTE | 2021-08-10 18:00 | Hospitalist Progress Note ---
Date of Service August 10, 2021 Assessment & Plan (1) Septic shock: Plan: With MSSA Septicemia BCxs with MSSA from 08/04, repeat BCxs 08/05 now also with MSSA Blood cultures from 08/08-remain no growth to date Ur cx with Enterococcus faecalis sensitive to ampicillin, daptomycin, penicillin, vancomycin Surface wound culture from right foot growing MSSA Catheter tip from hemodialysis catheter culture-no growth-final Wound culture intraoperatively from 08/09-pinpoint growth-pending Sepsis source -combination of osteomyelitis with diabetic foot wound, UTI, bacteremia Initially on levophed but weaned off and transitioned to midodrine 10 mg p.o. 3 times daily and transitioned out of ICU Continue midodrine 10 mg p.o. 3 times daily on all days rather than just on dialysis days as prior to admission Random cortisol level 18 but did receive 1 dose of IV hydrocortisone on 08/06 Transthoracic ECHO no valvular vegetation Hemodialysis catheter removed on 08/07 and catheter tip sent for culture-no growth MRI right ankle with osteomyelitis of the calcaneus, Charcot foot, and high- grade tears of the posterior medial tendons Now status post right foot ulcer debridement and calcanectomy with Dr. Naqvi on 08/09 -Continue to follow repeat blood cultures -Initially on zosyn and vancomycin for broad-spectrum coverage due to diabetic foot wound as well as MSSA bacteremia-now transitioned to IV Ancef for MSSA, and IV ampicillin for Enterococcus UTI -Appreciate orthopedic management -Vascular surgery consulted as below for severe PAD-plans on intervention after bacteremia clears-likely next week -Consider infectious disease consultation on Thursday to guide length of treatment but suspect she will need IV Ancef for about 4 weeks. The IV ampicillin can be discontinued after 7 days including the time she received Zosyn and Vanco -Follow CBC, CMP, CRP (2) Bacteremia: Plan: as above (3) Acute osteomyelitis of right calcaneus: Plan: Suspected based on plain films. Confirmed with MRI WIth open draining foul smelling wound on right heel Status post calcanectomy on 08/09 Postoperative care as per orthopedic surgery Plan for ID consult on Thursday (4) PAD (peripheral artery disease): Plan: With severe PAD based on clinical exam and bilateral lower extremity arterial Dopplers showing advanced peripheral vascular disease with multifocal bilateral vascular occlusions Vascular surgery consulted-plan for intervention after bacteremia clears likely next week (5) Discitis of thoracic region: Plan: Suspected based on CT chest findings. May need MRI t-spine but does not complain of pain at the site-does not seem likely source continue with IV abx as above (6) Acute metabolic encephalopathy: Plan: 2nd to sepsis/septic shock, renal failure Ongoing but seems improved today Supportive care, redirection, and treatment of infection (7) UTI (urinary tract infection): Plan: UA abnormal urine cx with Enterococcus faecalis as above Continue IV ampicillin-last day of 7-day course of treatment will be 08/12 (8) Chronic kidney disease requiring chronic dialysis: Plan: Date of HD initiation uncertain but she reports it was approximately 3 weeks prior to admission while hospitalized in [place]. [facility] Nephrology consulted for HD needs. Hemodialysis catheter removed on 08/07 due to bacteremia s/p HD on 08/06 On a line [place] for couple of days as per nephrology, will need a new temporary line versus new PermCath prior to next dialysis session Electrolytes are okay in fact potassium is low, she is not volume overloaded, not acidotic. She does not need urgent dialysis at this time and can likely wait until cultures are clear to place new dialysis catheter next week Follow [facility] Nephrology thinks she should have 1 L of normal saline and 08/10-ordered Replace potassium today orally as per nephrology (9) Depression: Plan: Recently on 120mg of cymbalta. Dose reduced while patient was at [facility]. Continue 30mg daily. (10) Coronary artery disease: Plan: History uncertain. With WMAs on ECHO here Mild troponin elevation c/w myocardial demand ischemia rather than ACS. Cardiology consult appreciated continue statin, not on ASA, beta noel-had recent GI bleed and should not be on antiplatelets right now (11) Diabetic peripheral neuropathy: Plan: Continue gabapentin Cont cymbalta. (12) Ischemic cardiomyopathy: Plan: noted to have EF 30-35% on ECHO with WMAs, mod-severe , elevated RVSP not volume overloaded holding home lasix BPs cannot tolerate beta noel or hydralazine/isosorbide and renal function can't handle ACEi/ARB (13) Hypothyroidism: Plan: TSH wnl. Continue levothyroxine 88mcg daily. (14) Anemia in chronic renal disease: Plan: Hb 9.9 this am and stable. Follow CBC am. Iron studies show normal serum iron, transferrin sat not performed B12 and folate normal (15) Chronic respiratory failure with hypoxia: Plan: 2L NC 02 at baseline. (16) Hypomagnesemia: Plan: replaced and normalized (17) Aortic stenosis: Plan: mod-severe on ECHO here Will need to be followed as an outpatient (18) Abdominal pain: Plan: CT a/p with ?pericholecystic fluid. RUQ u/s without findings to suggest acute cholecystitis. Lower abd pain may be due to constipation (moderate stool in rectum on CT). Dulcolax suppox x 1 was given. No further abdominal pain (19) Hyperglycemia: Plan: Hba1c 5.6%, but may be spurious due to anemia. Significant hyperglycemia now improved Pharmacy is managing insulin (20) History of GI bleed: Plan: recent AVM bleeding/UGI bleed as per reports from hospitalization in [place] continue PPI bid Avoiding antiplatelets for now (21) Candidiasis of mouth and esophagus: Plan: nystatin 5cc qid swish/spit. (22) Coagulopathy: Plan: INR 1.4. No evidence of DIC. Liver disease? vitamin K deficiency? other? repeat INR now 1.3 Will give p.o. vitamin K today (23) Obstructive sleep apnea: Plan: History of. Not on CPAP by report. (24) Obesity: Plan: BMI 30 (25) DVT prophylaxis: Plan: Heparin SQ-okay to restart now 24 hours after surgery Plan: Dispo-continued stay in PCU I had a long discussion with her sister, Romina, on the phone on 08/08. We discussed goals of care. She understands how sick her sister is and wants us to try to help her, but is not sure that her sister would want an amputation if it came to that. She also does not want to see her sister suffer and we also discussed the possibility of hospice in the future if she continues to decline. We will contact sister again on 08/10 for update Admission and Anticipated Discharge Date Admission Date: August 04, 2021 Subjective Patient reports some pain in the feet, but seems much more alert and awake today. Is eating and drinking, denies shortness of breath or chest pain. No abdominal pain. Telemetry with normal sinus rhythm with rates in the 90s to 100s, bursts of atrial tachycardia Review of Systems Review of Systems: All systems reviewed & are unremarkable except as noted in HPI & below Physical Exam Constitutional: WD/WN, vitals as above Eyes: + anicteric sclerae Neck: trachea midline, no thyromegaly Respiratory: normal respiratory effort, lungs clear to auscultation Cardiovascular: Rate/Rhythm: regular rate and regular rhythm Heart Sounds: + murmur (3/6 STAN at RUSB) Chest (Breasts): Chest: + abnormal inspection of chest (Incisional wound right anterior chest clean dry intact) Gastrointestinal (Abdomen): normal bowel sounds, soft, nontender, no hepatosplenomegaly Musculoskeletal: Extremities: + extremities abnormal to inspection (Right leg and foot in splint with Luis wrap), no cyanosis and no clubbing Neurologic: moves all extremities and awake; no focal motor deficits Psychiatric: Orientation: alert, oriented to person and cooperative Lymphatic: no lymphedema Results & Data Results & Data ([facility]) Vital Signs (Past 12 Hours) Vital Signs Temp Pulse Pulse Resp BP Pulse Ox 08/10/21 15:13 36.8 C 93 H 18 99/65 L 95 08/10/21 14:56 101 H 08/10/21 11:49 36.4 C L 93 H 17 94/61 L 95 08/10/21 08:00 97 H 08/10/21 07:30 36.4 C L 92 H 19 100/63 94 Laboratory Results 08/10/21 08/10/21 08/10/21 Range/Units 16:37 11:23 07:30 WBC (4.8-10.8) K/uL RBC (4.2-5.4) M/uL Hgb (12.0-16.0) g/dL Hct (37-47) % MCV (80-100) fL MCH (25-34) pg MCHC (32-36) g/dL RDW Std Deviation (36.4-46.3) fL RDW Coeff of Juno (11.5-14.5) % Plt Count (130-400) K/uL MPV (7.4-10.4) fL Immature Gran % (Auto) % Neut % (Auto) % Lymph % (Auto) % [place] % (Auto) % Eos % (Auto) % Baso % (Auto) % Neut # (Auto) (1.4-6.5) K/uL Lymph # (Auto) (1.2-3.4) K/uL [place] # (Auto) (0.11-0.59) K/uL Eos # (Auto) (0-0.5) K/uL Baso # (Auto) (0-0.2) K/uL Immature Gran # (Auto) (0.00-0.02) K/uL Sodium (136-145) mmol/L Potassium (3.5-5.1) mmol/L Chloride (98-107) mmol/L Carbon Dioxide (21-32) mmol/L Anion Gap (3-11) BUN (6-23) mg/dl Creatinine (0.6-1.2) mg/dl Est Cr Clr Drug Dosing ml/min Est GFR ( Amer) ml/min Est GFR (Non-Af Amer) ml/min BUN/Creatinine Ratio (10-20) Glucose (70-99(Fasting)) mg/dl POC Glucose 138 H 136 H 103 H (70-99) mg/dl Calcium (8.5-10.1) mg/dl Magnesium (1.7-2.4) mg/dl Total Bilirubin (0.2-1.0) mg/dl AST (13-39) U/L ALT (7-52) U/L Alkaline Phosphatase (34-104) U/L C-Reactive Protein (0-0.5) mg/dl Total Protein (6.0-8.3) gm/dl Albumin (3.4-5.0) gm/dl Globulin (2.5-4.0) gm/dl Albumin/Globulin Ratio (0.9-2) 08/10/21 08/10/21 08/09/21 Range/Units 05:35 05:35 20:13 WBC 10.36 (4.8-10.8) K/uL RBC 3.55 L (4.2-5.4) M/uL Hgb 9.9 L (12.0-16.0) g/dL Hct 31.1 L (37-47) % MCV 87.6 (80-100) fL MCH 27.9 (25-34) pg MCHC 31.8 L (32-36) g/dL RDW Std Deviation 56.4 H (36.4-46.3) fL RDW Coeff of Juno 17.8 H (11.5-14.5) % Plt Count 281 (130-400) K/uL MPV 10.2 (7.4-10.4) fL Immature Gran % (Auto) 0.7 % Neut % (Auto) 51.0 % Lymph % (Auto) 30.1 % [place] % (Auto) 13.3 % Eos % (Auto) 4.3 % Baso % (Auto) 0.6 % Neut # (Auto) 5.28 (1.4-6.5) K/uL Lymph # (Auto) 3.12 (1.2-3.4) K/uL [place] # (Auto) 1.38 H (0.11-0.59) K/uL Eos # (Auto) 0.45 (0-0.5) K/uL Baso # (Auto) 0.06 (0-0.2) K/uL Immature Gran # (Auto) 0.07 H (0.00-0.02) K/uL Sodium 139 (136-145) mmol/L Potassium 3.0 L (3.5-5.1) mmol/L Chloride 103 (98-107) mmol/L Carbon Dioxide 23 (21-32) mmol/L Anion Gap 13 H (3-11) BUN 33 H (6-23) mg/dl Creatinine 3.88 H (0.6-1.2) mg/dl Est Cr Clr Drug Dosing 14.7 ml/min Est GFR ( Amer) 12.8 ml/min Est GFR (Non-Af Amer) 11.1 ml/min BUN/Creatinine Ratio 8.5 L (10-20) Glucose 84 (70-99(Fasting)) mg/dl POC Glucose 204 H (70-99) mg/dl Calcium 7.5 L (8.5-10.1) mg/dl Magnesium 2.0 (1.7-2.4) mg/dl Total Bilirubin 0.5 (0.2-1.0) mg/dl AST 28 (13-39) U/L ALT 8 (7-52) U/L Alkaline Phosphatase 76 (34-104) U/L C-Reactive Protein 5.52 H (0-0.5) mg/dl Total Protein 5.2 L (6.0-8.3) gm/dl Albumin 2.3 L (3.4-5.0) gm/dl Globulin 2.9 (2.5-4.0) gm/dl Albumin/Globulin Ratio 0.8 L (0.9-2) PG Care Time/CCT Total # of Minutes Spent Total Time Spent with Patient: Total time spent is greater than 50% in coordination of care (as documented) at patient's floor/unit and/or counseling patient: Coding Level of Care Code 39731 Subseq Hosp Care Lvl 3 Diagnoses Septic shock A41.9; R65.21 Bacteremia R78.81 Acute osteomyelitis of right calcaneus M86.171 PAD (peripheral artery disease) I73.9 Discitis of thoracic region M46.44 Acute metabolic encephalopathy G93.41 UTI (urinary tract infection) N39.0 Chronic kidney disease requiring chronic dialysis N18.6; Z99.2 Depression F32.A Coronary artery disease I25.10 Diabetic peripheral neuropathy E11.42 Ischemic cardiomyopathy I25.5 Hypothyroidism E03.9 Anemia in chronic renal disease N18.9; D63.1 Chronic respiratory failure with hypoxia J96.11 Hypomagnesemia E83.42 Aortic stenosis I35.0 Abdominal pain R10.9 Hyperglycemia R73.9 History of GI bleed Z87.19 Candidiasis of mouth and esophagus B37.81; B37.0 Coagulopathy D68.9 Obstructive sleep apnea G47.33 Obesity E66.9 DVT prophylaxis Z29.9
[2021-08-10] MEDS ORDERED: PHYTONADIONE 5 MG TAB PO STA (18:01)
[2021-08-10] MEDS: HEPARIN SOD 5,000 UNIT/0.5 ML VIAL SQ SCH (20:52)
[2021-08-10] MEDS: GABAPENTIN 100 MG CAP PO SCH (20:52)
[2021-08-10] MEDS: SENNA 8.6 MG TAB PO SCH (20:54)
[2021-08-11] MEDS: SODIUM CHLORIDE 0.9% 1000ML 1,000 ML IV SCH ×3 (01:26→22:30)
[2021-08-11] MEDS: LEVOTHYROXINE SODIUM 88 MCG TABLET PO SCH (05:33)
[2021-08-11 06:36] LABS: Basophils # (auto) 0.08 K/uL (0-0.2); Basophils % (auto) 0.7 %; Eosinophils # (auto) 0.59 K/uL (0-0.5); Hematocrit (blood only) 30.5 % (37-47); Hemoglobin 9.5 g/dL (12.0-16.0); Immature Granulocytes # (auto) 0.12 K/uL (0.00-0.02); Lymphocytes # (auto) 3.57 K/uL (1.2-3.4); Lymphocytes % (auto) 30.3 %; Mean Corpuscular Hemoglobin 27.4 pg (25-34); Mean Corpuscular Hgb Conc 31.1 g/dL (32-36); Mean Corpuscular Volume 87.9 fL (80-100); Mean Platelet Volume 10.2 fL (7.4-10.4); Monocytes # (auto) 1.33 K/uL (0.11-0.59); Monocytes % (auto) 11.3 %; Neutrophils % (auto) 51.7 %; Platelet Count 341 K/uL (130-400); RDW Coefficient of Variation 18.2 % (11.5-14.5); RDW Standard Deviation 57.8 fL (36.4-46.3); Red Blood Count 3.47 M/uL (4.2-5.4); White Blood Count 11.79 K/uL (4.8-10.8)
[2021-08-11 06:47] LABS: INR 1.3 (0.9-1.1); Prothrombin Time 13.7 Seconds (9.0-12.0)
[2021-08-11 07:00] LABS: BUN Creatinine Ratio 8.1 (10-20); C Reactive Protein 10.2 mg/dl (0-0.5); Calcium 7.4 mg/dl (8.5-10.1); Creatinine Clr Calc Pharmacy 12.9 ml/min; Est GFR (African American) 10.9 ml/min; Est GFR (Non-African American) 9.4 ml/min; Magnesium 1.9 mg/dl (1.7-2.4); Potassium 3.7 mmol/L (3.5-5.1)
[2021-08-11] MEDS: INSULIN ASPART PER UNIT SC SCH ×4 (08:41→20:45)
[2021-08-11] MEDS: MIDODRINE HCL 10 MG TAB PO SCH ×3 (09:49→17:50)
[2021-08-11] MEDS: DULoxetine HCL 30 MG CAP PO SCH (09:49)
[2021-08-11] MEDS: HEPARIN SOD 5,000 UNIT/0.5 ML VIAL SQ SCH ×2 (09:49→20:46)
[2021-08-11] MEDS: PANTOprazole 40 MG TAB PO SCH ×2 (09:49→20:50)
[2021-08-11] MEDS: NYSTATIN SUSP 500,000 U/5 ML UDC PO SCH ×4 (09:50→20:50)
[2021-08-11] MEDS: NEPHROCAPS PO SCH (09:50)
[2021-08-11] MEDS: DOCUSATE SODIUM 100 MG CAP PO SCH ×2 (09:51→20:51)
--- NOTE | 2021-08-11 10:34 | Orthopedic Progress Note ---
Date of Service August 11, 2021 Assessment & Plan (1) Acute osteomyelitis of right calcaneus: Plan: POD 2 s/p Partial Calcanectomy with Irrigation and Debridement of Heel Ulcer, Skin, Fascia, Subcutaenous Tissue and Tendon PT/OT. NWB on RLE. Pain management as written. DVT prophylaxis as per Medicine Service. Ok to restart Heparin. Daily dressing changes. Admission and Anticipated Discharge Date Admission Date: August 04, 2021 Subjective POD 2 Pt in bed awake, alert. No complaints. States she has less pain in the heel than before. Physical Exam Physical Exam: Dressings removed. Wound well approximated. Mild bloody drainage. No purulence. Minimal erythema. Redressed. Results & Data ([facility]) Vital Signs (Past 12 Hours) Vital Signs Temp Pulse Pulse Resp BP Pulse Ox 08/11/21 08:57 36.6 C 100 H 18 101/67 95 08/11/21 03:50 37 C 84 14 108/67 95 08/10/21 23:10 36.9 C 96 H 18 91/59 L 94 08/10/21 22:41 84 Laboratory Results 08/11/21 08/11/21 08/11/21 Range/Units 07:37 05:25 05:25 WBC (4.8-10.8) K/uL RBC (4.2-5.4) M/uL Hgb (12.0-16.0) g/dL Hct (37-47) % MCV (80-100) fL MCH (25-34) pg MCHC (32-36) g/dL RDW Std Deviation (36.4-46.3) fL RDW Coeff of Juno (11.5-14.5) % Plt Count (130-400) K/uL MPV (7.4-10.4) fL Immature Gran % (Auto) % Neut % (Auto) % Lymph % (Auto) % [place] % (Auto) % Eos % (Auto) % Baso % (Auto) % Neut # (Auto) (1.4-6.5) K/uL Lymph # (Auto) (1.2-3.4) K/uL [place] # (Auto) (0.11-0.59) K/uL Eos # (Auto) (0-0.5) K/uL Baso # (Auto) (0-0.2) K/uL Immature Gran # (Auto) (0.00-0.02) K/uL PT 13.7 H (9.0-12.0) Seconds INR 1.3 H (0.9-1.1) Sodium 141 (136-145) mmol/L Potassium 3.7 D (3.5-5.1) mmol/L Chloride 107 (98-107) mmol/L Carbon Dioxide 21 (21-32) mmol/L Anion Gap 13 H (3-11) BUN 36 H (6-23) mg/dl Creatinine 4.45 H D (0.6-1.2) mg/dl Est Cr Clr Drug Dosing 12.9 ml/min Est GFR ( Amer) 10.9 ml/min Est GFR (Non-Af Amer) 9.4 ml/min BUN/Creatinine Ratio 8.1 L (10-20) Glucose 123 H (70-99(Fasting)) mg/dl POC Glucose 130 H (70-99) mg/dl Calcium 7.4 L (8.5-10.1) mg/dl Magnesium 1.9 (1.7-2.4) mg/dl C-Reactive Protein 10.20 H (0-0.5) mg/dl 08/11/21 08/10/21 08/10/21 Range/Units 05:25 20:02 16:37 WBC 11.79 H (4.8-10.8) K/uL RBC 3.47 L (4.2-5.4) M/uL Hgb 9.5 L (12.0-16.0) g/dL Hct 30.5 L (37-47) % MCV 87.9 (80-100) fL MCH 27.4 (25-34) pg MCHC 31.1 L (32-36) g/dL RDW Std Deviation 57.8 H (36.4-46.3) fL RDW Coeff of Juno 18.2 H (11.5-14.5) % Plt Count 341 (130-400) K/uL MPV 10.2 (7.4-10.4) fL Immature Gran % (Auto) 1.0 % Neut % (Auto) 51.7 % Lymph % (Auto) 30.3 % [place] % (Auto) 11.3 % Eos % (Auto) 5.0 % Baso % (Auto) 0.7 % Neut # (Auto) 6.10 (1.4-6.5) K/uL Lymph # (Auto) 3.57 H (1.2-3.4) K/uL [place] # (Auto) 1.33 H (0.11-0.59) K/uL Eos # (Auto) 0.59 H (0-0.5) K/uL Baso # (Auto) 0.08 (0-0.2) K/uL Immature Gran # (Auto) 0.12 H (0.00-0.02) K/uL PT (9.0-12.0) Seconds INR (0.9-1.1) Sodium (136-145) mmol/L Potassium (3.5-5.1) mmol/L Chloride (98-107) mmol/L Carbon Dioxide (21-32) mmol/L Anion Gap (3-11) BUN (6-23) mg/dl Creatinine (0.6-1.2) mg/dl Est Cr Clr Drug Dosing ml/min Est GFR ( Amer) ml/min Est GFR (Non-Af Amer) ml/min BUN/Creatinine Ratio (10-20) Glucose (70-99(Fasting)) mg/dl POC Glucose 167 H 138 H (70-99) mg/dl Calcium (8.5-10.1) mg/dl Magnesium (1.7-2.4) mg/dl C-Reactive Protein (0-0.5) mg/dl 08/10/21 Range/Units 11:23 WBC (4.8-10.8) K/uL RBC (4.2-5.4) M/uL Hgb (12.0-16.0) g/dL Hct (37-47) % MCV (80-100) fL MCH (25-34) pg MCHC (32-36) g/dL RDW Std Deviation (36.4-46.3) fL RDW Coeff of Juno (11.5-14.5) % Plt Count (130-400) K/uL MPV (7.4-10.4) fL Immature Gran % (Auto) % Neut % (Auto) % Lymph % (Auto) % [place] % (Auto) % Eos % (Auto) % Baso % (Auto) % Neut # (Auto) (1.4-6.5) K/uL Lymph # (Auto) (1.2-3.4) K/uL [place] # (Auto) (0.11-0.59) K/uL Eos # (Auto) (0-0.5) K/uL Baso # (Auto) (0-0.2) K/uL Immature Gran # (Auto) (0.00-0.02) K/uL PT (9.0-12.0) Seconds INR (0.9-1.1) Sodium (136-145) mmol/L Potassium (3.5-5.1) mmol/L Chloride (98-107) mmol/L Carbon Dioxide (21-32) mmol/L Anion Gap (3-11) BUN (6-23) mg/dl Creatinine (0.6-1.2) mg/dl Est Cr Clr Drug Dosing ml/min Est GFR ( Amer) ml/min Est GFR (Non-Af Amer) ml/min BUN/Creatinine Ratio (10-20) Glucose (70-99(Fasting)) mg/dl POC Glucose 136 H (70-99) mg/dl Calcium (8.5-10.1) mg/dl Magnesium (1.7-2.4) mg/dl C-Reactive Protein (0-0.5) mg/dl
--- NOTE | 2021-08-11 10:44 | Nephrology Progress Note ---
Date of Service August 11, 2021 Assessment & Plan Admission and Anticipated Discharge Date Admission Date: August 04, 2021 Subjective Subjective S--feels weak and c/o some pain. Making urine ?/ amount. CVC is out. K is low. Not eating much. BP somewhat soft PHYSICAL EXAMINATION: GENERAL: Elderly white female who is quite sick at this time HEENT: Mucous membrane is moist. NECK: Supple. No jugular venous distention. CHEST: Bilaterally clear to auscultation. Limited quality of the exam secondary to lack of inspiratory effort. CARDIOVASCULAR: S1 and S2 tachycardic, regular. No murmur heard. ABDOMEN: Soft, nontender. EXTREMITIES: Show no edema. LABORATORY TEST: Blood culture is positive for S Aureus. CT chest and chest x- ray did not show any overt pulmonary edema or congestive heart failure. There is some possibility of diskitis, some diffuse ground-glass opacity bilaterally in the lung. Abdomen and pelvis CT scan showed mild pericholecystic infiltration. Gallbladder ultrasound already done and there was not any major abnormal finding. Calcaneus x-ray is suggestive of osteomyelitis. ASSESSMENT AND PLAN: A 71-year-old female who presented to the hospital from the [facility] where she was getting rehabilitation following a prolonged hospitalization. I have been consulted for dialysis management. She is a new start of dialysis within the last month with acute renal failure in the setting of extensive medical problems and progression of her underlying CKD IV. End-stage renal disease:She does not have any evidence of overt fluid overload or congestive heart failure.Also K is only 3.4 creat is still 3.5 so no need of Dialysis today. She may be able to go few more days without dialysis as she is a new HD start and still has decent residual renal function.Next HD will be after new CVC placed or if emergent will do by temp Line. Decision about dialysis on daily basis. NO dialysis today. Still with ongoing issues--Wound debridement and so on so not the best time for tunnelled CVC. Lower iv fluid rate to 50 /hr given poor po intake and low K. Lasix on hold. K is normal today Bacteremia/Osteo- MSSA. HD cath out. Will place vasc Surg consult for new tunnelled CVC -to be placed Thursday or thursday. NPO after midnight Results & Data ([facility]) Vital Signs (Past 12 Hours) Vital Signs Temp Pulse Resp BP Pulse Ox 08/11/21 08:57 36.6 C 100 H 18 101/67 95 08/11/21 03:50 37 C 84 14 108/67 95 08/10/21 23:10 36.9 C 96 H 18 91/59 L 94
--- NOTE | 2021-08-11 15:06 | Hospitalist Progress Note ---
Date of Service August 11, 2021 Assessment & Plan (1) Septic shock: Plan: Now resolved was initially managed in ICU with pressors. Now BP is holding up (2) Bacteremia: Plan: With MSSA Septicemia BCxs with MSSA from 08/04, repeat BCxs 08/05 now also with MSSA Blood cultures from 08/08-remain no growth to date Ur cx with Enterococcus faecalis sensitive to ampicillin, daptomycin, penicillin, vancomycin Surface wound culture from right foot growing MSSA Catheter tip from hemodialysis catheter culture-no growth-final Wound culture intraoperatively from 08/09-pinpoint growth-pending Sepsis source -combination of osteomyelitis with diabetic foot wound, UTI, bacteremia Transthoracic ECHO no valvular vegetation Hemodialysis catheter removed on 08/07 and catheter tip sent for culture-no growth -Continue to follow repeat blood cultures -Initially on zosyn and vancomycin for broad-spectrum coverage due to diabetic foot wound as well as MSSA bacteremia-now transitioned to IV Ancef for MSSA, and IV ampicillin for Enterococcus UTI -Appreciate orthopedic management -Vascular surgery consulted as below for severe PAD-plans on intervention after bacteremia clears-likely next week -Consider infectious disease consultation on Thursday to guide length of treatment but suspect she will need IV Ancef for about 4 weeks. The IV ampicillin can be discontinued after 7 days including the time she received Zosyn and Vanco -Follow CBC, CMP, CRP (3) Acute osteomyelitis of right calcaneus: Plan: MRI right ankle with osteomyelitis of the calcaneus, Charcot foot, and high- grade tears of the posterior medial tendons Now status post right foot ulcer debridement and calcanectomy with Dr. Naqvi on 08/09 Postoperative care as per orthopedic surgery Plan for ID consult on Thursday (4) PAD (peripheral artery disease): Plan: With severe PAD based on clinical exam and bilateral lower extremity arterial Dopplers showing advanced peripheral vascular disease with multifocal bilateral vascular occlusions Vascular surgery consulted-plan for intervention after bacteremia clears likely thursday/thursday (5) Discitis of thoracic region: Plan: Suspected based on CT chest findings. May need MRI t-spine but does not complain of pain at the site-does not seem likely source continue with IV abx as above (6) Acute metabolic encephalopathy: Plan: now resolved (7) UTI (urinary tract infection): Plan: UA abnormal urine cx with Enterococcus faecalis as above Continue IV ampicillin-last day of 7-day course of treatment will be 08/12 (8) Chronic kidney disease requiring chronic dialysis: Plan: Date of HD initiation uncertain but she reports it was approximately 3 weeks prior to admission while hospitalized in [place]. [facility] consulted for HD needs. Hemodialysis catheter removed on 08/07 due to bacteremia s/p HD on 08/06 On a line holiday for couple of days as per nephrology, will need a new temporary line versus new PermCath prior to next dialysis session (9) Depression: Plan: Recently on 120mg of cymbalta. Dose reduced while patient was at [facility]. Continue 30mg daily. (10) Coronary artery disease: Plan: History uncertain. With WMAs on ECHO here Mild troponin elevation c/w myocardial demand ischemia rather than ACS. Cardiology consult appreciated continue statin, not on ASA, beta noel-had recent GI bleed and should not be on antiplatelets right now (11) Diabetic peripheral neuropathy: Plan: Continue gabapentin Cont cymbalta. (12) Ischemic cardiomyopathy: Plan: noted to have EF 30-35% on ECHO with WMAs, mod-severe , elevated RVSP not volume overloaded holding home lasix BPs cannot tolerate beta noel or hydralazine/isosorbide and renal function can't handle ACEi/ARB (13) Hypothyroidism: Plan: TSH wnl. Continue levothyroxine 88mcg daily. (14) Anemia in chronic renal disease: Plan: monitor Iron studies show normal serum iron, transferrin sat not performed B12 and folate normal (15) Chronic respiratory failure with hypoxia: Plan: 2L NC 02 at baseline. (16) Hypomagnesemia: Plan: replaced and normalized (17) Aortic stenosis: Plan: mod-severe on ECHO here Will need to be followed as an outpatient (18) Abdominal pain: Plan: CT a/p with ?pericholecystic fluid. RUQ u/s without findings to suggest acute cholecystitis. Lower abd pain may be due to constipation (moderate stool in rectum on CT). Dulcolax suppox x 1 was given. No further abdominal pain (19) Hyperglycemia: Plan: Hba1c 5.6%, but may be spurious due to anemia. Significant hyperglycemia now improved Pharmacy is managing insulin (20) History of GI bleed: Plan: recent AVM bleeding/UGI bleed as per reports from hospitalization in [place] continue PPI bid Avoiding antiplatelets for now (21) Candidiasis of mouth and esophagus: Plan: nystatin 5cc qid swish/spit. (22) Coagulopathy: Plan: No evidence of DIC. Liver disease? vitamin K deficiency? other? (23) Obstructive sleep apnea: Plan: History of. Not on CPAP by report. (24) Obesity: Plan: BMI 30 (25) DVT prophylaxis: Plan: Heparin SQ-okay to restart now 24 hours after surgery Plan: discharge to rehab after ID recommendation regarding antibiotics Admission and Anticipated Discharge Date Admission Date: August 04, 2021 Subjective Patient seen and examined today, still feels very weak and tired but otherwise much improved compared to admission Review of Systems Review of Systems: All systems reviewed are negative, apart from the ones contained in the history. Physical Exam Physical Exam: The patient is awake, alert and oriented 3, well developed and well nourished, normocephalic and atraumatic, lying in bed and in no acute distress. HEENT--PERRL, EOMI, mucous membranes and oropharynx mildly dry Neck--supple. No JVD. No bruits. Thyroid normal, trachea midline, no adenopathy. Heart--normal S1 and S2. No murmurs, rubs or gallops. Lungs--clear bilaterally, no respiratory distress, no accessory muscle use. Abdomen--normal bowel sounds and soft. Extremities--right foot in bandage Dermatologic--normal skin turgor, normal color, no abnormal lymph nodes, no rash. Neurologic--cranial nerves II through XII grossly intact. Rheumatologic--normal range of motion. Psychiatric--normal affect. Results & Data Results & Data ([facility]) Vital Signs (Past 12 Hours) Vital Signs Temp Pulse Pulse Resp BP Pulse Ox 08/11/21 11:22 97.5 F L 84 18 118/75 95 08/11/21 08:57 97.9 F 100 H 18 101/67 95 08/11/21 08:00 86 08/11/21 03:50 98.6 F 84 14 108/67 95 PG Care Time/CCT Total # of Minutes Spent Total Time Spent with Patient: Total time spent is greater than 50% in coordination of care (as documented) at patient's floor/unit and/or counseling patient: Coding Level of Care Code 12078 Subseq Hosp Care Lvl 2 Diagnoses Septic shock A41.9; R65.21 Bacteremia R78.81 Acute osteomyelitis of right calcaneus M86.171 PAD (peripheral artery disease) I73.9 Discitis of thoracic region M46.44 Acute metabolic encephalopathy G93.41 UTI (urinary tract infection) N39.0 Chronic kidney disease requiring chronic dialysis N18.6; Z99.2 Depression F32.A Coronary artery disease I25.10 Diabetic peripheral neuropathy E11.42 Ischemic cardiomyopathy I25.5 Hypothyroidism E03.9 Anemia in chronic renal disease N18.9; D63.1 Chronic respiratory failure with hypoxia J96.11 Hypomagnesemia E83.42 Aortic stenosis I35.0 Abdominal pain R10.9 Hyperglycemia R73.9 History of GI bleed Z87.19 Candidiasis of mouth and esophagus B37.81; B37.0 Coagulopathy D68.9 Obstructive sleep apnea G47.33 Obesity E66.9 DVT prophylaxis Z29.9 Time Spent (min) 35
[2021-08-11] MEDS: ceFAZolin 1000MG 1,000 MG/7.5 ML SYR IV SCH (17:48)
[2021-08-11] MEDS: AMPICILLIN 2,000 MG in SODIUM CHLOR 0.9% AD-VAN 100 ML IV SCH (17:49)
[2021-08-11] MEDS: ATORVASTATIN 40 MG TAB PO SCH (17:49)
--- NOTE | 2021-08-11 18:08 | Operative Report (OR) ---
DATE OF PROCEDURE: 08/09/2021 PREOPERATIVE DIAGNOSES: 1. Right calcaneal osteomyelitis. 2. Diabetic neuropathic ulcer measuring 4 x 4 x 0.3 cm and septic Achilles tendon. POSTOPERATIVE DIAGNOSES: 1. Right calcaneal osteomyelitis. 2. Diabetic neuropathic ulcer measuring 4 x 4 x 0.3 cm and septic Achilles tendon. PROCEDURE: 1. Right partial calcanectomy. 2. Irrigation and debridement of diabetic neuropathic ulcer including skin, subcutaneous tissue, fas teri, periosteum measuring 4 x 4 x 0.3 cm and partial Achilles tendon resection. SURGEON: Nolberto Naqvi DO. CEMENT FITTINGS MAKER: Arben Tony PA-C who was present for patient positioning, sterile prep and drape, m anagement of retractors and instruments. He was present through the critical portions of the case inc luding wound closure, application of sterile dressing and transport of the patient to recovery. ANESTHESIA: MAC regional. SPECIMENS: Calcaneal bone for pathologic specimen and aerobic, anaerobic, Gram stain specimen for cu lture analysis. DRAINS: Loose closure. COMPLICATIONS: None. BLOOD LOSS: 15 mL. PERTINENT HISTORY: This is a 71-year-old female who had developed severe ulceration of the right renuka caneus with MRI confirmed osteomyelitis of the calcaneus. She attempted and failed conservative brook gement, so was scheduled for surgical intervention as indicated. All potential risks, benefits, complications, alternatives, rehab potential for incomplete relief of symptoms, need for further surgery, DVT, PE, , persistent pain, swelling, scarring, weakness, ne urovascular injury, wound complications, need for possible further debridement and amputation was dis cussed with the patient and family. They decided to proceed with the procedure as indicated. DESCRIPTION OF PROCEDURE: The patient was taken to the operative suite and placed supine on the oper ating table. After review of consent and identification of proper operative site, the patient was se dated and then rolled in a left lateral decubitus position with the affected side up over a vacuum pa ck and all bony prominences were properly padded and protected. Right lower extremity was then steri bryson prepped and draped in usual fashion, elevated and exsanguinated with an Esmarch bandage, partial ly avoiding the area of concern and an Esmarch, tourniquet applied over sterile surgical towel below the ankle. Next, after surgical timeout was performed, a debridement of 4 x 4 x 0.3 cm heel ulceration was perfo rmed with a 15-blade scalpel and scissor dissection including skin, subcutaneous tissue, fascia and p eriosteum. Next, the infected necrotic areas of the Achilles tendon was then sharply excised with a 15 blade scalpel. This revealed the area of osteomyelitis within the calcaneus, was noted to be nota katherine soft as tested by probe insertion to a depth of at least 1 cm. Next, after sharp dissection to expose the posterior tuberosity of the calcaneus, Hohmann retractors were placed around the Achilles and the calcaneus exposed and then a sagittal saw was then used to pe rform a partial calcanectomy excising approximately 70% of the calcaneal tuberosity. Rongeur was the n used to smooth and contour the remainder of the calcaneal bone with margin approximately 1 cm beyon d the area of known osteomyelitis. A rasp was then used to smooth the calcaneal tuberosity remainder . This area was then copiously irrigated with approximately 3 L saline with Ancef additive with puls atile lavage. Once this was completed, top gloves and top sheet were changed and a full-thickness closure was perfo rmed using #1 Vicryl deep, 2-0 Vicryl in the dermis and nylon sutures to form a loose, well coapted, low tension closure of the posterior heel tissue. Next, a sterile compressive dressing and posterior splint was applied overwrapped with an Luis wrap. The tourniquet was released. The patient was awak ened and taken to recovery in stable condition. Job ID: [id number]
[2021-08-11] MEDS: GABAPENTIN 100 MG CAP PO SCH (20:50)
[2021-08-11] MEDS: SENNA 8.6 MG TAB PO SCH (20:51)
[2021-08-12] MEDS: LEVOTHYROXINE SODIUM 88 MCG TABLET PO SCH (06:51)
[2021-08-12 08:56] LABS: Basophils # (auto) 0.08 K/uL (0-0.2); Basophils % (auto) 0.7 %; Eosinophils # (auto) 0.47 K/uL (0-0.5); Eosinophils % (auto) 4.1 %; Hematocrit (blood only) 35.4 % (37-47); Hemoglobin 10.7 g/dL (12.0-16.0); Immature Granulocytes # (auto) 0.17 K/uL (0.00-0.02); Immature Granulocytes % (auto) 1.5 %; Lymphocytes # (auto) 3.09 K/uL (1.2-3.4); Lymphocytes % (auto) 26.7 %; Mean Corpuscular Hemoglobin 27.1 pg (25-34); Mean Corpuscular Hgb Conc 30.2 g/dL (32-36); Mean Corpuscular Volume 89.6 fL (80-100); Mean Platelet Volume 10.2 fL (7.4-10.4); Monocytes # (auto) 1.44 K/uL (0.11-0.59); Monocytes % (auto) 12.5 %; Neutrophils # (auto) 6.31 K/uL (1.4-6.5); Neutrophils % (auto) 54.5 %; Platelet Count 380 K/uL (130-400); RDW Coefficient of Variation 18.3 % (11.5-14.5); RDW Standard Deviation 60.2 fL (36.4-46.3); Red Blood Count 3.95 M/uL (4.2-5.4); White Blood Count 11.56 K/uL (4.8-10.8)
[2021-08-12] MEDS: HEPARIN SOD 5,000 UNIT/0.5 ML VIAL SQ SCH ×2 (09:05→20:35)
[2021-08-12 09:18] LABS: INR 1.3 (0.9-1.1); Prothrombin Time 13.4 Seconds (9.0-12.0)
[2021-08-12 09:29] LABS: BUN Creatinine Ratio 7.9 (10-20); Calcium 7.8 mg/dl (8.5-10.1); Creatinine Clr Calc Pharmacy 12.8 ml/min; Est GFR (African American) 10.6 ml/min; Est GFR (Non-African American) 9.2 ml/min; Magnesium 1.8 mg/dl (1.7-2.4); Phosphorus 6.2 mg/dl (2.5-4.9); Potassium 3.8 mmol/L (3.5-5.1)
[2021-08-12] MEDS ORDERED: HEPARIN SOD (PORCINE) 5,000 UNITS/ML VIAL ONE (09:49)
[2021-08-12] MEDS ORDERED: MIDAZOLAM HCL 1 MG/ML 2ML VIAL ONE (09:49)
[2021-08-12] MEDS ORDERED: fentaNYL citrate 100 MCG/2 ML VIAL ONE (09:49)
[2021-08-12] MEDS ORDERED: LIDOCAINE 1% LOCAL 20 ML VIAL ONE (09:49)
--- NOTE | 2021-08-12 10:01 | Pre Anesthesia Assessment ---
Date of Service August 12, 2021 Pre Sedation Assessment Vital Signs Temp Pulse Pulse Resp BP BP Pulse Ox 08/12/21 07:19 36.7 C 90 18 108/69 94 08/12/21 04:24 36.8 C 87 16 122/76 94 08/11/21 23:52 36.7 C 87 18 129/73 94 08/11/21 22:17 76 08/11/21 19:27 36.9 C 91 H 18 114/70 95 08/11/21 16:00 87 08/11/21 15:03 83 08/11/21 11:22 36.4 C L 84 18 118/75 95 Cardiovascular RRR, no murmur, no edema Respiratory normal respiratory effort, lungs clear to auscultation Pre-Sedation Airway Assessment Smoking Status: Never smoker Hx Sleep Apnea: No Short, Thick Neck: Yes Thyromental Distance: > or= 3.5 Finger Breadths Oral Cavity: + WNL Mallampati Class: III ASA: ASA3 NPO Status Date of Last Intake of Fluids: 08/11/21 Time of Last Intake of Fluids: 20:00 Last Oral Intake of Fluids Comment: atleast since midnight Date of Last Intake of Solid Food: 08/11/21 Time of Last Intake of Solid Foods: 20:00 Last Intake of Solids Comment: atleast since midnight Procedure Planning Contraindications for Sedation: none Current Medications Reviewed: Yes Notes The planned sedation has been discussed with the patient. Informed Consent was obtained. I have identified the patient, determined the appropriateness of sedation and have assessed the patient immediately prior to the procedure. All medicine(s) and interventions are by my order.
--- NOTE | 2021-08-12 10:01 | History & Physical Bridge Note ---
Date of Service August 12, 2021 History & Physical Bridge Note Patient for insertion of permcath today. I have discussed the risks options and benefits of the procedure with the patient. The patient understands the risks options and benefits and agrees to the procedure. I have examined the patient, reviewed the History & Physical and in the interval since the performance of the History & Physical I have noted the following changes of clinical significance: no changes noted
[2021-08-12] MEDS: INSULIN ASPART PER UNIT SC SCH ×4 (10:07→20:35)
--- NOTE | 2021-08-12 10:44 | Post Anesthesia Assessment ---
Date of Service August 12, 2021 Post Sedation Assessment Vital Signs Temp Pulse Pulse Pulse Resp BP BP 08/12/21 10:40 99 H 16 109/59 L 08/12/21 10:35 101 H 16 113/59 L 08/12/21 10:30 100 H 16 118/62 08/12/21 10:25 98 H 16 132/73 08/12/21 10:00 36.5 C 100 H 20 117/73 08/12/21 07:19 36.7 C 90 18 108/69 08/12/21 04:24 36.8 C 87 16 122/76 08/11/21 23:52 36.7 C 87 18 129/73 08/11/21 22:17 76 08/11/21 19:27 36.9 C 91 H 18 114/70 08/11/21 16:00 87 08/11/21 15:03 83 08/11/21 11:22 36.4 C L 84 18 118/75 Pulse Ox 08/12/21 10:40 98 08/12/21 10:35 98 08/12/21 10:30 100 08/12/21 10:25 100 08/12/21 10:00 94 08/12/21 07:19 94 08/12/21 04:24 94 08/11/21 23:52 94 08/11/21 22:17 08/11/21 19:27 95 08/11/21 16:00 08/11/21 15:03 08/11/21 11:22 95 Recovery Score Activity: Moves 4 extremities Respiration: Deep Breath/Cough Circulation: +/-20% PreAnes Value Consciousness: Fully Awake Oxygen Saturation: > 92% On Room Air Post Anesthesia Score: 10 Discharge Sedation Level of Care: Fast Track Phase II Post Sedation Plan On clinical assessment, the patient appears to have tolerated the sedation without complications. Patient is recovering as anticipated. Patient will continue to be monitored by nursing and may be discharged when sedation discharge criteria are met per below protocol. Upon Completions of procedure up to 15 minutes continue every 5 minute vital signs and the P.A.R. score; then discharge to a Phase I or Fast Track to Phase II per the following guidelines: * Discharge Patient to appropriate Phase II area if PAR is 8 or greater or return to pre- procedure baseline. The post - procedure orders will be as directed. * If PAR score is less than 8 or not return to pre-procedure baseline then patient will follow Phase I monitoring till PAR is reached for Phase II. The Phase I may be done in procedure room or may call to secure a Phase I area. * If naloxone or flumazenil are used for reversal, hold in Phase I for continued monitoring from when last reversal dose was given for a minimum of 60 minutes or longer pending the nurse and/or physician discretion of patient condition before discharge to Phase II. Please call the Sedation Physician to re-evaluate and complete post-note for discharge to Phase II area. Do NOT discharge from procedure sedation or Phase 1 until post- sedation evaluation note is complete by procedure /sedation MD Sedation Discharge Instructions to be given to the patient at discharge to home.
--- NOTE | 2021-08-12 10:44 | Operative Report ---
Post Operative Report Pre & Post Diagnosis Operation Date: 08/07/21 09:10 Pre-Op Diagnosis: sepsis Post-Op Diagnosis: sepsis Operation Date: 08/09/21 09:20 Pre-Op Diagnosis: Osteomyelitis Right Calcaneous Post-Op Diagnosis: Osteomyelitis Right Calcaneous Operation Date: 08/12/21 11:10 Pre-Op Diagnosis: End State Renal Disease Post-Op Diagnosis: End State Renal Disease Operation Date: 08/13/21 13:20 <No data on this case meets the specified criteria> I identified the patient and participated in the time-out.: Yes Procedure Operation Date: 08/07/21 09:10 Actual Procedures p Perm Catheter Removal(Right) - Inocencio Pablo MD Operation Date: 08/09/21 09:20 Actual Procedures p Right Foot: Partial Calcanectomy with Irrigation and Debridement of Heel Ulcer, Skin, Fascia, Subcutaenous Tissue and Tendon(Right) - Nolberto Naqvi DO Operation Date: 08/12/21 11:10 Actual Procedures p Perm Catheter Insertion, Moderate Sedation [id number](Right) - Inocencio Pablo MD Operation Date: 08/13/21 13:20 <No data on this case meets the specified criteria> Surgeon Inocencio Pablo MD Hand Launderer none Estimated Blood Loss 5 Findings Consistent with Post-Op Diagnosis Specimens none Anesthesia Type RN Sedation Complications none Disposition Accompanied Patient To Recovery: No Disposition: Recovery Room Indications Is a 71-year-old female who had a permacath in place. It was removed due to septicemia. Her blood cultures negative. We are here to replace her PermCath. I have discussed the risks options and benefits of the procedure with the patient's sister The patient's sister understands the risks options and benefits and agrees to the procedure. Description of Procedure Patient was taken to the angio suite and placed in the supine position. The rightside of the neck and chest wall were prepped and draped in a sterile manner. The patient was identified and a timeout performed. Local anesthesia was then administered to the appropriate areas of the neck and chest wall. Ultrasound was then used to locate the right internal jugular vein. The vein compressed easily, had no filing defects, and was patent. The vein was then punctured under direct ultrasound imaging. A guidewire was then passed centrally under fluoroscopic imaging. A stab wound was then made in the anterior chest wall and a 19 cm permcath was passed from the stab wound on the chest wall to the puncture site on the neck. The puncture site was then dilated till the 14Fr peel away sheath was inserted. The permcath was then inserted through the sheath to a central position in the distal superior vena cava. The peel away sheath was then removed. The catheter was then sutured in place using nylon sutures. The puncture was then closed using a 4-0 Vicryl subcuticular suture. Dermabond was used for a dressing on the puncture site. Both ports aspirated and flushed easily and were then packed with heparin. A sterile dressing was applied to the catheter. The patient left the operation room in satisfactory condition and tolerated the procedure well. All needle and sponge counts were correct at the end of the procedure. I attest to the content of the Intraoperative Record and any orders documented therein. Any exceptions are noted below.
[2021-08-12] MEDS: DULoxetine HCL 30 MG CAP PO SCH (11:25)
[2021-08-12] MEDS: MIDODRINE HCL 10 MG TAB PO SCH ×3 (11:25→19:47)
[2021-08-12] MEDS ORDERED: SODIUM CHLORIDE 0.9% 1000ML 1,000 ML IV PRN (11:25)
[2021-08-12] MEDS: NEPHROCAPS PO SCH (11:26)
[2021-08-12] MEDS: DOCUSATE SODIUM 100 MG CAP PO SCH ×2 (11:26→20:38)
[2021-08-12] MEDS: PANTOprazole 40 MG TAB PO SCH ×2 (11:26→20:37)
[2021-08-12] MEDS: NYSTATIN SUSP 500,000 U/5 ML UDC PO SCH ×4 (11:26→20:37)
--- NOTE | 2021-08-12 12:39 | Orthopedic Progress Note ---
Date of Service August 12, 2021 Assessment & Plan (1) Acute osteomyelitis of right calcaneus: Plan: POD 3 s/p 1. Right partial calcanectomy. 2. Irrigation and debridement of diabetic neuropathic ulcer including skin, subcutaneous tissue, fascia, periosteum measuring 4 x 4 x 0.3 cm and partial Achilles tendon resection. PT/OT. NWB on RLE. Pain management as written. DVT prophylaxis as per Medicine Service. Ok to restart Heparin. Daily dressing changes. Dressing change today with mild bloody drainage on the gauze. No purulence noted. Continue IV antibioticsawaiting final culture sensitivities. A significant portion of the calcaneus was removed, however, there is a possibility that there may still be a trace of compromised remaining necrotic infected tissue. She will require 6 weeks of IV antibiotics. Orthopedics will sign off at this time. She will follow up with Dr. Naqvi's clinic approximately 7 to 10 days after discharge. If she has a prolonged admission while awaiting her vascular surgery and postop recovery, we can reassess the wound in approximately 10 days. Admission and Anticipated Discharge Date Admission Date: August 04, 2021 Subjective No complaints of the right foot today. States she has been nonweightbearing on the right lower extremity and the nurses have helped her remain n onweightbearing. States she is planning on vascular surgery for the right lower extremity within the next week. Physical Exam Constitutional: WD/WN, vitals as above no acute distress Musculoskeletal: Ankle: + deformity (Right hindfoot: Post partial calcanectomy) and + surgical incision (Posterior right heel with well approximated skin edges); no skin erythema and no ecchymosis Psychiatric: A+Ox3, euthymic affect Speech: normal rate/rhythm/volume of speech Results & Data ([facility]) Vital Signs (Past 12 Hours) Vital Signs Temp Pulse Pulse Pulse Resp BP BP 08/12/21 12:00 36.8 C 88 18 102/70 08/12/21 10:48 99 H 16 109/59 L 08/12/21 10:40 99 H 16 109/59 L 08/12/21 10:35 101 H 16 113/59 L 08/12/21 10:30 100 H 16 118/62 08/12/21 10:25 98 H 16 132/73 08/12/21 10:00 36.5 C 100 H 20 117/73 08/12/21 07:19 36.7 C 90 18 108/69 08/12/21 04:24 36.8 C 87 16 122/76 Pulse Ox 08/12/21 12:00 97 08/12/21 10:48 98 08/12/21 10:40 98 08/12/21 10:35 98 08/12/21 10:30 100 08/12/21 10:25 100 08/12/21 10:00 94 08/12/21 07:19 94 08/12/21 04:24 94 Laboratory Results Gram Stain Final 08/09/21-1426 Gram Stain Result Few WBCs Seen No Organisms Seen Aero/Gina Cult Preliminary 08/12/21-1212 Organism 1 Corynebacterium species Quantity Rare Sens No Sensitivities to Follow No Anaerobes Isolated No Anaerobes Isolated Organism 2 Staphylococcus species Quantity Rare Sens Sensitivities to Follow
--- NOTE | 2021-08-12 13:21 | Nephrology Progress Note ---
Date of Service August 12, 2021 Assessment & Plan (1) ESRD (end stage renal disease) on dialysis: Plan: -replace line today-vascular help appreciated -3.5hr HD today goal up to 1 L UF as hemodynamics tolerate; 3K bath -no heparin on tx d/t TDC today -defer to pharmacy to dose abtx accordingly w/ timing of dialysis -will d/c IVF as she is taking po now -20K of epo w/ HD today Admission and Anticipated Discharge Date Admission Date: August 04, 2021 Subjective no c/o of worsening sob or edema; pain acceptable. Review of Systems Review of Systems: All systems reviewed & are unremarkable except as noted in Subjective Physical Exam Constitutional: well developed and well nourished Eyes: EOM intact bilaterally ENMT: Ears: no external ear abnormality Nose: no external nose abnormality Mouth: + dry oral mucous membranes Neck: no nuchal rigidity Respiratory: normal respiratory effort Auscultation: + diminished lung sounds Cardiovascular: Rate/Rhythm: regular rate and regular rhythm Extremities: no edema Gastrointestinal (Abdomen): Inspection/Auscultation: normal bowel sounds Percussion/Palpation: abdomen soft; abdomen nontender Musculoskeletal: Extremities: strength 5/5 throughout Skin: no rashes, warm and dry Neurologic: davis, fluent speech, no tremor Psychiatric: Orientation: oriented to person and oriented to place Results & Data ([facility]) Vital Signs (Past 12 Hours) Vital Signs Temp Pulse Pulse Pulse Resp BP BP 08/12/21 12:00 36.8 C 88 18 102/70 08/12/21 10:48 99 H 16 109/59 L 08/12/21 10:40 99 H 16 109/59 L 08/12/21 10:35 101 H 16 113/59 L 08/12/21 10:30 100 H 16 118/62 08/12/21 10:25 98 H 16 132/73 08/12/21 10:00 36.5 C 100 H 20 117/73 08/12/21 07:19 36.7 C 90 18 108/69 08/12/21 04:24 36.8 C 87 16 122/76 Pulse Ox 08/12/21 12:00 97 08/12/21 10:48 98 08/12/21 10:40 98 08/12/21 10:35 98 08/12/21 10:30 100 08/12/21 10:25 100 04/11/22 10:00 94 08/12/21 07:19 94 08/12/21 04:24 94 Laboratory Results 08/12/21 08:45 08/12/21 08:45
--- NOTE | 2021-08-12 14:07 | Hospitalist Progress Note ---
Date of Service August 12, 2021 Assessment & Plan (1) Septic shock: Plan: Now resolved was initially managed in ICU with pressors. Now BP is holding up (2) Bacteremia: Plan: With MSSA Septicemia BCxs with MSSA from 08/04, repeat BCxs 08/05 now also with MSSA Blood cultures from 08/08-remain no growth to date Ur cx with Enterococcus faecalis sensitive to ampicillin, daptomycin, penicillin, vancomycin Surface wound culture from right foot growing MSSA Catheter tip from hemodialysis catheter culture-no growth-final Wound culture intraoperatively from 08/09-pinpoint growth-pending Sepsis source -combination of osteomyelitis with diabetic foot wound, UTI, bacteremia Transthoracic ECHO no valvular vegetation Hemodialysis catheter removed on 08/07 and catheter tip sent for culture-no growth -Continue to follow repeat blood cultures -Initially on zosyn and vancomycin for broad-spectrum coverage due to diabetic foot wound as well as MSSA bacteremia-now transitioned to IV Ancef for MSSA, and IV ampicillin for Enterococcus UTI -ID on consult, await recommendations regarding type and duration of disccharge antibiotics (3) Acute osteomyelitis of right calcaneus: Plan: MRI right ankle with osteomyelitis of the calcaneus, Charcot foot, and high- grade tears of the posterior medial tendons Now status post right foot ulcer debridement and calcanectomy with Dr. Naqvi on 08/09 Postoperative care as per orthopedic surgery ID on consult (4) PAD (peripheral artery disease): Plan: With severe PAD based on clinical exam and bilateral lower extremity arterial Dopplers showing advanced peripheral vascular disease with multifocal bilateral vascular occlusions Vascular surgery consulted-plan for intervention after bacteremia clears likely thursday/thursday (5) Discitis of thoracic region: Plan: Suspected based on CT chest findings. May need MRI t-spine but does not complain of pain at the site-does not seem likely source continue with IV abx as above (6) Acute metabolic encephalopathy: Plan: now resolved (7) UTI (urinary tract infection): Plan: completed a course of antibiotics (8) Chronic kidney disease requiring chronic dialysis: Plan: permacath has been inserted Now on HD appreciate Nephrology recs (9) Depression: Plan: Recently on 120mg of cymbalta. Dose reduced while patient was at [facility]. Continue 30mg daily. (10) Coronary artery disease: Plan: History uncertain. With WMAs on ECHO here Mild troponin elevation c/w myocardial demand ischemia rather than ACS. Cardiology consult appreciated continue statin, not on ASA, beta noel-had recent GI bleed and should not be on antiplatelets right now (11) Diabetic peripheral neuropathy: Plan: Continue gabapentin Cont cymbalta. (12) Ischemic cardiomyopathy: Plan: noted to have EF 30-35% on ECHO with WMAs, mod-severe , elevated RVSP not volume overloaded holding home lasix BPs cannot tolerate beta noel or hydralazine/isosorbide and renal function can't handle ACEi/ARB (13) Hypothyroidism: Plan: TSH wnl. Continue levothyroxine 88mcg daily. (14) Anemia in chronic renal disease: Plan: monitor Iron studies show normal serum iron, transferrin sat not performed B12 and folate normal (15) Chronic respiratory failure with hypoxia: Plan: 2L NC 02 at baseline. (16) Hypomagnesemia: Plan: replaced and normalized (17) Aortic stenosis: Plan: mod-severe on ECHO here Will need to be followed as an outpatient (18) Abdominal pain: Plan: now resolved (19) Hyperglycemia: Plan: Hba1c 5.6%, but may be spurious due to anemia. Significant hyperglycemia now improved Pharmacy is managing insulin (20) History of GI bleed: Plan: recent AVM bleeding/UGI bleed as per reports from hospitalization in [place] continue PPI bid Avoiding antiplatelets for now (21) Candidiasis of mouth and esophagus: Plan: nystatin 5cc qid swish/spit. (22) Coagulopathy: Plan: No evidence of DIC. Liver disease? vitamin K deficiency? other? (23) Obstructive sleep apnea: Plan: History of. Not on CPAP by report. (24) Obesity: Plan: BMI 30 (25) DVT prophylaxis: Plan: Heparin SQ-okay to restart now 24 hours after surgery Plan: discharge to rehab after ID recommendation regarding antibiotics Admission and Anticipated Discharge Date Admission Date: August 04, 2021 Subjective patient seen and examined today, denies any new complaints Review of Systems Review of Systems: All systems reviewed are negative, apart from the ones contained in the history. Physical Exam Physical Exam: The patient is awake, alert and oriented 3, well developed and well nourished, normocephalic and atraumatic, lying in bed and in no acute distress. HEENT--PERRL, EOMI, mucous membranes and oropharynx mildly dry Neck--supple. No JVD. No bruits. Thyroid normal, trachea midline, no adenopathy. Heart--normal S1 and S2. No murmurs, rubs or gallops. Lungs--clear bilaterally, no respiratory distress, no accessory muscle use. Abdomen--normal bowel sounds and soft. Extremities--right foot in bandage Dermatologic--normal skin turgor, normal color, no abnormal lymph nodes, no rash. Neurologic--cranial nerves II through XII grossly intact. Rheumatologic--normal range of motion. Psychiatric--normal affect. Results & Data Results & Data ([facility]) Vital Signs (Past 12 Hours) Vital Signs Temp Pulse Pulse Pulse Resp BP BP 08/12/21 12:00 98.2 F 88 18 102/70 08/12/21 10:48 99 H 16 109/59 L 08/12/21 10:40 99 H 16 109/59 L 08/12/21 10:35 101 H 16 113/59 L 08/12/21 10:30 100 H 16 118/62 08/12/21 10:25 98 H 16 132/73 08/12/21 10:00 97.7 F 100 H 20 117/73 08/12/21 07:19 98.1 F 90 18 108/69 08/12/21 04:24 98.2 F 87 16 122/76 Pulse Ox 08/12/21 12:00 97 08/12/21 10:48 98 08/12/21 10:40 98 08/12/21 10:35 98 08/12/21 10:30 100 08/12/21 10:25 100 08/12/21 10:00 94 08/12/21 07:19 94 08/12/21 04:24 94 Laboratory Results Laboratory Results - last 24 hr 08/11/21 08/11/21 08/12/21 16:32 20:19 07:22 WBC RBC Hgb Hct MCV MCH MCHC RDW Std Deviation RDW Coeff of Juno Plt Count MPV Immature Gran % (Auto) Neut % (Auto) Lymph % (Auto) [place] % (Auto) Eos % (Auto) Baso % (Auto) Neut # (Auto) Lymph # (Auto) [place] # (Auto) Eos # (Auto) Baso # (Auto) Immature Gran # (Auto) PT INR Sodium Potassium Chloride Carbon Dioxide Anion Gap BUN Creatinine Est Cr Clr Drug Dosing Est GFR ( Amer) Est GFR (Non-Af Amer) BUN/Creatinine Ratio Glucose POC Glucose 84 240 H 168 H Calcium Phosphorus Magnesium 08/12/21 08/12/21 08/12/21 08:45 08:45 08:45 WBC 11.56 H RBC 3.95 L Hgb 10.7 L Hct 35.4 L MCV 89.6 MCH 27.1 MCHC 30.2 L RDW Std Deviation 60.2 H RDW Coeff of Juno 18.3 H Plt Count 380 MPV 10.2 Immature Gran % (Auto) 1.5 Neut % (Auto) 54.5 Lymph % (Auto) 26.7 [place] % (Auto) 12.5 Eos % (Auto) 4.1 Baso % (Auto) 0.7 Neut # (Auto) 6.31 Lymph # (Auto) 3.09 [place] # (Auto) 1.44 H Eos # (Auto) 0.47 Baso # (Auto) 0.08 Immature Gran # (Auto) 0.17 H PT 13.4 H INR 1.3 H Sodium 141 Potassium 3.8 Chloride 109 H Carbon Dioxide 21 Anion Gap 11 BUN 36 H Creatinine 4.53 H* Est Cr Clr Drug Dosing 12.8 Est GFR ( Amer) 10.6 Est GFR (Non-Af Amer) 9.2 BUN/Creatinine Ratio 7.9 L Glucose 186 H POC Glucose Calcium 7.8 L Phosphorus 6.2 H Magnesium 1.8 08/12/21 08/12/21 09:57 11:24 WBC RBC Hgb Hct MCV MCH MCHC RDW Std Deviation RDW Coeff of [place]o Plt Count MPV Immature Gran % (Auto) Neut % (Auto) Lymph % (Auto) [place] % (Auto) Eos % (Auto) Baso % (Auto) Neut # (Auto) Lymph # (Auto) [place] # (Auto) Eos # (Auto) Baso # (Auto) Immature Gran # (Auto) PT INR Sodium Potassium Chloride Carbon Dioxide Anion Gap BUN Creatinine Est Cr Clr Drug Dosing Est GFR ( Amer) Est GFR (Non-Af Amer) BUN/Creatinine Ratio Glucose POC Glucose 170 H 179 H Calcium Phosphorus Magnesium PG Care Time/CCT Total # of Minutes Spent Total Time Spent with Patient: Total time spent is greater than 50% in coordination of care (as documented) at patient's floor/unit and/or counseling patient: Coding Level of Care Code 39669 Subseq Hosp Care Lvl 2 Diagnoses Septic shock A41.9; R65.21 Bacteremia R78.81 Acute osteomyelitis of right calcaneus M86.171 PAD (peripheral artery disease) I73.9 Discitis of thoracic region M46.44 Acute metabolic encephalopathy G93.41 UTI (urinary tract infection) N39.0 Chronic kidney disease requiring chronic dialysis N18.6; Z99.2 Depression F32.A Coronary artery disease I25.10 Diabetic peripheral neuropathy E11.42 Ischemic cardiomyopathy I25.5 Hypothyroidism E03.9 Anemia in chronic renal disease N18.9; D63.1 Chronic respiratory failure with hypoxia J96.11 Hypomagnesemia E83.42 Aortic stenosis I35.0 Abdominal pain R10.9 Hyperglycemia R73.9 History of GI bleed Z87.19 Candidiasis of mouth and esophagus B37.81; B37.0 Coagulopathy D68.9 Obstructive sleep apnea G47.33 Obesity E66.9 DVT prophylaxis Z29.9 Time Spent (min) 35
[2021-08-12] MEDS: AMPICILLIN 2,000 MG in SODIUM CHLOR 0.9% AD-VAN 100 ML IV SCH (19:48)
[2021-08-12] MEDS: ceFAZolin 1000MG 1,000 MG/7.5 ML SYR IV SCH (19:49)
[2021-08-12] MEDS: ATORVASTATIN 40 MG TAB PO SCH (19:50)
[2021-08-12] MEDS: GABAPENTIN 100 MG CAP PO SCH (20:37)
[2021-08-12] MEDS: SENNA 8.6 MG TAB PO SCH (20:38)
[2021-08-13] MEDS: LEVOTHYROXINE SODIUM 88 MCG TABLET PO SCH (06:34)
[2021-08-13] MEDS: DOCUSATE SODIUM 100 MG CAP PO SCH ×2 (07:50→20:46)
[2021-08-13] MEDS: NYSTATIN SUSP 500,000 U/5 ML UDC PO SCH ×4 (07:51→20:47)
[2021-08-13] MEDS: MIDODRINE HCL 10 MG TAB PO SCH ×3 (07:51→17:06)
[2021-08-13] MEDS: HEPARIN SOD 5,000 UNIT/0.5 ML VIAL SQ SCH ×2 (07:52→20:47)
[2021-08-13] MEDS: DULoxetine HCL 30 MG CAP PO SCH (07:52)
[2021-08-13] MEDS: PANTOprazole 40 MG TAB PO SCH ×2 (07:52→20:47)
[2021-08-13] MEDS: NEPHROCAPS PO SCH (07:53)
[2021-08-13] MEDS: INSULIN ASPART PER UNIT SC SCH ×4 (07:59→20:47)
--- NOTE | 2021-08-13 11:51 | Hospitalist Progress Note ---
Date of Service August 13, 2021 Assessment & Plan (1) Septic shock: Plan: Now resolved was initially managed in ICU with pressors. Now BP is holding up (2) Bacteremia: Plan: With MSSA Septicemia BCxs with MSSA from 08/04, repeat BCxs 08/05 now also with MSSA Blood cultures from 08/08-remain no growth to date Ur cx with Enterococcus faecalis sensitive to ampicillin, daptomycin, penicillin, vancomycin Surface wound culture from right foot growing MSSA Catheter tip from hemodialysis catheter culture-no growth-final Wound culture intraoperatively from 08/09-pinpoint growth-pending Sepsis source -combination of osteomyelitis with diabetic foot wound, UTI, bacteremia Transthoracic ECHO no valvular vegetation Hemodialysis catheter removed on 08/07 and catheter tip sent for culture-no growth -Continue to follow repeat blood cultures -Initially on zosyn and vancomycin for broad-spectrum coverage due to diabetic foot wound as well as MSSA bacteremia-now transitioned to IV Ancef for MSSA, and IV ampicillin for Enterococcus UTI -ID on consult, recommend IV cefazolin 2g 3 times weekly with HD (3) Acute osteomyelitis of right calcaneus: Plan: MRI right ankle with osteomyelitis of the calcaneus, Charcot foot, and high- grade tears of the posterior medial tendons Now status post right foot ulcer debridement and calcanectomy with Dr. Naqvi on 08/09 Postoperative care as per orthopedic surgery ID on consult (4) PAD (peripheral artery disease): Plan: With severe PAD based on clinical exam and bilateral lower extremity arterial Dopplers showing advanced peripheral vascular disease with multifocal bilateral vascular occlusions Vascular surgery consulted-plan for intervention after bacteremia clears likely thursday/thursday (5) Discitis of thoracic region: Plan: Suspected based on CT chest findings. May need MRI t-spine but does not complain of pain at the site-does not seem likely source continue with IV abx as above (6) Acute metabolic encephalopathy: Plan: now resolved (7) UTI (urinary tract infection): Plan: completed a course of antibiotics (8) Chronic kidney disease requiring chronic dialysis: Plan: permacath has been inserted Now on HD appreciate Nephrology recs (9) Depression: Plan: Recently on 120mg of cymbalta. Dose reduced while patient was at [facility]. Continue 30mg daily. (10) Coronary artery disease: Plan: History uncertain. With WMAs on ECHO here Mild troponin elevation c/w myocardial demand ischemia rather than ACS. Cardiology consult appreciated continue statin, not on ASA, beta noel-had recent GI bleed and should not be on antiplatelets right now (11) Diabetic peripheral neuropathy: Plan: Continue gabapentin Cont cymbalta. (12) Ischemic cardiomyopathy: Plan: noted to have EF 30-35% on ECHO with WMAs, mod-severe , elevated RVSP not volume overloaded holding home lasix BPs cannot tolerate beta noel or hydralazine/isosorbide and renal function can't handle ACEi/ARB (13) Hypothyroidism: Plan: TSH wnl. Continue levothyroxine 88mcg daily. (14) Anemia in chronic renal disease: Plan: monitor Iron studies show normal serum iron, transferrin sat not performed B12 and folate normal (15) Chronic respiratory failure with hypoxia: Plan: 2L NC 02 at baseline. (16) Hypomagnesemia: Plan: replaced and normalized (17) Aortic stenosis: Plan: mod-severe on ECHO here Will need to be followed as an outpatient (18) Abdominal pain: Plan: now resolved (19) Hyperglycemia: Plan: Hba1c 5.6%, but may be spurious due to anemia. Significant hyperglycemia now improved Pharmacy is managing insulin (20) History of GI bleed: Plan: recent AVM bleeding/UGI bleed as per reports from hospitalization in [place] continue PPI bid Avoiding antiplatelets for now (21) Candidiasis of mouth and esophagus: Plan: nystatin 5cc qid swish/spit. (22) Coagulopathy: Plan: No evidence of DIC. Liver disease? vitamin K deficiency? other? (23) Obstructive sleep apnea: Plan: History of. Not on CPAP by report. (24) Obesity: Plan: BMI 30 (25) DVT prophylaxis: Plan: Heparin SQ-okay to restart now 24 hours after surgery Plan: [facility] Admission and Anticipated Discharge Date Admission Date: August 04, 2021 Subjective patient seen and examined today, denies any new complaints Review of Systems Review of Systems: All systems reviewed are negative, apart from the ones contained in the history. Physical Exam Physical Exam: The patient is awake, alert and oriented 3, well developed and well nourished, normocephalic and atraumatic, lying in bed and in no acute distress. HEENT--PERRL, EOMI, mucous membranes and oropharynx mildly dry Neck--supple. No JVD. No bruits. Thyroid normal, trachea midline, no adenopathy. Heart--normal S1 and S2. No murmurs, rubs or gallops. Lungs--clear bilaterally, no respiratory distress, no accessory muscle use. Abdomen--normal bowel sounds and soft. Extremities--right foot in bandage Dermatologic--normal skin turgor, normal color, no abnormal lymph nodes, no rash. Neurologic--cranial nerves II through XII grossly intact. Rheumatologic--normal range of motion. Psychiatric--normal affect. Results & Data Results & Data ([facility]) Vital Signs (Past 12 Hours) Vital Signs Temp Pulse Pulse Resp BP BP Pulse Ox 08/13/21 08:00 98.2 F 96 H 22 115/61 08/13/21 07:00 97 H 08/13/21 03:56 98.4 F 90 18 100/62 92 08/12/21 23:50 98.4 F 94 H 16 113/71 91 PG Care Time/CCT Total # of Minutes Spent Total Time Spent with Patient: Total time spent is greater than 50% in coordination of care (as documented) at patient's floor/unit and/or counseling patient: Coding Level of Care Code 25542 Subseq Hosp Care Lvl 2 Diagnoses Septic shock A41.9; R65.21 Bacteremia R78.81 Acute osteomyelitis of right calcaneus M86.171 PAD (peripheral artery disease) I73.9 Discitis of thoracic region M46.44 Acute metabolic encephalopathy G93.41 UTI (urinary tract infection) N39.0 Chronic kidney disease requiring chronic dialysis N18.6; Z99.2 Depression F32.A Coronary artery disease I25.10 Diabetic peripheral neuropathy E11.42 Ischemic cardiomyopathy I25.5 Hypothyroidism E03.9 Anemia in chronic renal disease N18.9; D63.1 Chronic respiratory failure with hypoxia J96.11 Hypomagnesemia E83.42 Aortic stenosis I35.0 Abdominal pain R10.9 Hyperglycemia R73.9 History of GI bleed Z87.19 Candidiasis of mouth and esophagus B37.81; B37.0 Coagulopathy D68.9 Obstructive sleep apnea G47.33 Obesity E66.9 DVT prophylaxis Z29.9 Time Spent (min) 35
--- NOTE | 2021-08-13 13:40 | Nephrology Progress Note ---
Date of Service August 13, 2021 Assessment & Plan (1) ESRD (end stage renal disease) on dialysis: Plan: -got new TDC 08/12; tolerated 1L uf same day -cont MWF HD; can tolerate change in scheduled day if needed -after d/c she will need 2 gm cefazolin post HD > this abtx will NOT be supplied by HD; needs to be supplied by outside facility/pharmacy since cxs c/w wound b acteremia source -f/u labs on abtx would need to be managed in [facility] diseases or specialty pharmacy -first negative cx is 08/08; needs per ID 6 wks abtx after heel I&D (08/09) and neg blood cx -max dose AVA w/ HD Admission and Anticipated Discharge Date Admission Date: August 04, 2021 Subjective no interval events; for possible d/c to [facility] soon; ID saw pt Review of Systems Review of Systems: All systems reviewed & are unremarkable except as noted in Subjective Physical Exam Constitutional: well developed and well nourished Eyes: EOM intact bilaterally ENMT: Ears: no external ear abnormality Nose: no external nose abnormality Mouth: + dry oral mucous membranes Neck: no nuchal rigidity Respiratory: normal respiratory effort Auscultation: + diminished lung sounds Cardiovascular: Rate/Rhythm: regular rate and regular rhythm Extremities: no edema Gastrointestinal (Abdomen): Inspection/Auscultation: normal bowel sounds Percussion/Palpation: abdomen soft; abdomen nontender Musculoskeletal: Extremities: strength 5/5 throughout Skin: no rashes, warm and dry Neurologic: davis, fluent speech, no tremor Psychiatric: Orientation: oriented to person and oriented to place Results & Data ([facility]) Vital Signs (Past 12 Hours) Vital Signs Temp Pulse Pulse Resp BP BP Pulse Ox 08/13/21 12:44 37.0 C 89 20 128/78 98 08/13/21 08:00 36.8 C 96 H 22 115/61 08/13/21 07:00 97 H 08/13/21 03:56 36.9 C 90 18 100/62 92 Laboratory Results 08/12/21 08:45 08/12/21 08:45
[2021-08-13] MEDS: AMPICILLIN 2,000 MG in SODIUM CHLOR 0.9% AD-VAN 100 ML IV SCH (17:05)
[2021-08-13] MEDS: ATORVASTATIN 40 MG TAB PO SCH (17:06)
[2021-08-13] MEDS: ceFAZolin 1000MG 1,000 MG/7.5 ML SYR IV SCH (17:06)
[2021-08-13] MEDS: SENNA 8.6 MG TAB PO SCH (20:46)
[2021-08-13] MEDS: GABAPENTIN 100 MG CAP PO SCH (20:47)
[2021-08-14] MEDS: LEVOTHYROXINE SODIUM 88 MCG TABLET PO SCH (05:29)
[2021-08-14 05:52] LABS: Hematocrit (blood only) 30.8 % (37-47); Hemoglobin 9.6 g/dL (12.0-16.0); Mean Corpuscular Hemoglobin 27.8 pg (25-34); Mean Corpuscular Hgb Conc 31.2 g/dL (32-36); Mean Corpuscular Volume 89.3 fL (80-100); Mean Platelet Volume 9.6 fL (7.4-10.4); Platelet Count 331 K/uL (130-400); RDW Coefficient of Variation 18.9 % (11.5-14.5); RDW Standard Deviation 60.9 fL (36.4-46.3); Red Blood Count 3.45 M/uL (4.2-5.4); White Blood Count 8.91 K/uL (4.8-10.8)
[2021-08-14 06:15] LABS: BUN Creatinine Ratio 5.9 (10-20); Calcium 7.4 mg/dl (8.5-10.1); Est GFR (African American) 15.1 ml/min; Potassium 3.4 mmol/L (3.5-5.1)
[2021-08-14] MEDS ORDERED: SODIUM CHLORIDE 0.9% 1000ML 1,000 ML IV PRN (08:21)
[2021-08-14] MEDS ORDERED: HEPARIN SOD (PORCINE) 1000 UNIT/ML IV ONE (08:21)
[2021-08-14] MEDS: INSULIN ASPART PER UNIT SC SCH ×2 (08:22→13:19)
[2021-08-14] MEDS: HEPARIN SOD 5,000 UNIT/0.5 ML VIAL SQ SCH (08:23)
[2021-08-14] MEDS: DOCUSATE SODIUM 100 MG CAP PO SCH (08:23)
[2021-08-14] MEDS: NEPHROCAPS PO SCH (08:23)
[2021-08-14] MEDS: DULoxetine HCL 30 MG CAP PO SCH (08:23)
[2021-08-14] MEDS: NYSTATIN SUSP 500,000 U/5 ML UDC PO SCH ×2 (08:23→13:19)
[2021-08-14] MEDS: PANTOprazole 40 MG TAB PO SCH (08:23)
[2021-08-14] MEDS: MIDODRINE HCL 10 MG TAB PO SCH ×2 (08:23→13:20)
[2021-08-14] MEDS ORDERED: HEPARIN SOD (PORCINE) 1000 UNIT/ML IV SCH (08:30)
[2021-08-14] MEDS ORDERED: EPOETIN ALFA 4,000 UNIT/ML VIAL IV ONE (09:30)
[2021-08-14 09:48] LABS: Iron 62 mcg/dl (35-150); Unsaturated Iron Binding Cap < 55 mcg/dl (155-355)
--- NOTE | 2021-08-14 11:20 | Discharge Summary ---
Date of Service August 14, 2021 Admission HPI Per Admitting Provider Saida Manriquez is a 71 year old female who presents to the ER from due to altered mental status, hypotension and tachycardia. Over the last few days she has been running a low grade fever around 99 degrees Fahrenheit with associated mild hypotension (notably she takes midodrine on dialysis days since July 13) with systolic BP 90s (usually 100-110) and increase in her HR 100- 110s. Yesterday she was complaining of pain throughout her whole spine. Labs were drawn this morning and one dose of Zosyn was given at 14:21 due to suspicion of infection. Unfortunately this afternoon she continued to deteri orate with HR 136 and worsening altered mental state (usual alert and orientated x3) therefore she was sent to the ER for further management. No nausea, vomiting, abdominal pain, diarrhea, upper respiratory illness (on 2LPM O2 at baseline). Last bowel movements on July 02. She produces a small amount of urine at baseline and this hasn't changed. She is not know to our system and patient only groans to questions therefore history is limited to [facility] notes and from RN America Manriquez at [facility] who I spoke to over the phone. She was transferred to [facility] after prolonged hospitalization at [facility] from Jun 12 to July 10 due to shortness of breath and black stool. 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 She developed CHARLES on CKD stage IV and was started on dialysis on this hospitalization. Reportedly she produces a small amount of urine. She was discharged to [facility] for rehabilitation however reportedly has been a 2 person slide board transfer there and has not been walking. At baseline prior to this she could walk about 30 feet before becoming short of breath. In the ER initial POC labs suspected to be hemolyzed and not reliable however calcium gluconate 1g given for cardiac protection in addition to IV 100 meq sodium bicarbonate while awaiting labs to return. WBC 25.9, neut 21.97. Imaging suggested pericholecystic infiltration however no RUQ pain to suggest cholecystitis. CT chest concerning for disc space narrowing T10-11 possibly concerning for discitis/osteomyelitis, UA concerning for infection Principal Diagnosis septic shock-resolved Discharge Exam The patient is awake, alert and oriented 3, well developed and well nourished, normocephalic and atraumatic, lying in bed and in no acute distress. HEENT--PERRL, EOMI, mucous membranes and oropharynx mildly dry Neck--supple. No JVD. No bruits. Thyroid normal, trachea midline, no adenopathy. Heart--normal S1 and S2. No murmurs, rubs or gallops. Lungs--clear bilaterally, no respiratory distress, no accessory muscle use. Abdomen--normal bowel sounds and soft. Extremities--right foot in bandage Dermatologic--normal skin turgor, normal color, no abnormal lymph nodes, no rash. Neurologic--cranial nerves II through XII grossly intact. Rheumatologic--normal range of motion. Psychiatric--normal affect. Discharge Data Allergies Allergy/AdvReac Type Severity Reaction Status Date / Time cyclobenzaprine Allergy Unknown ON MED LIST Verified 08/12/21 09:39 [From Flexeril] Consultations 08/04/21 18:47 ED Decision to Admit Stat 08/04/21 21:[address] Officer Routine 08/05/21 09:15 Consult Nephrology Routine 08/06/21 11:50 Consult Cardiology Stat 08/06/21 12:46 Consult Vascular Surgery Routine 08/06/21 18:00 Consult Orthopedic Surgery Routine 08/10/21 17:55 Consult Infectious Diseases Routine 08/12/21 07:17 Consult Infectious Diseases Routine Procedures Performed Operation Date: 08/07/21 09:10 Actual Procedures p Perm Catheter Removal(Right) - Inocencio Pablo MD Operation Date: 08/09/21 09:20 Actual Procedures p Right Foot: Partial Calcanectomy with Irrigation and Debridement of Heel Ulcer, Skin, Fascia, Subcutaenous Tissue and Tendon(Right) - Nolberto Naqvi DO Operation Date: 08/12/21 11:10 Actual Procedures p Perm Catheter Insertion, Moderate Sedation [id number](Right) - Inocencio Pablo MD Operation Date: 08/13/21 13:20 <No data on this case meets the specified criteria> Ordered Studies 08/04/21 17:15 CT abd pelvis wo con Stat CT chest diagnostic wo con Stat CT head/brain wo con Stat 08/04/21 18:23 US gallbladder Stat 08/05/21 16:03 CT abd pelvis IV con only Stat 08/07/21 15:01 US arterial duplex LE BI Routine 08/08/21 02:25 MR ankle RT wo con Routine 08/09/21 12:54 US - OR guided needle placemen Routine 08/12/21 09:48 EV cvc insrt tunnel wo prt/campus interviews intern Routine Hospital Course (1) Septic shock: Now resolved was initially managed in ICU with pressors. Now BP is holding up (2) Bacteremia: With MSSA Septicemia BCxs with MSSA from 08/04, repeat BCxs 08/05 now also with MSSA Blood cultures from 08/08-remain no growth to date Ur cx with Enterococcus faecalis sensitive to ampicillin, daptomycin, penicillin, vancomycin Surface wound culture from right foot growing MSSA Catheter tip from hemodialysis catheter culture-no growth-final Wound culture intraoperatively from 08/09-pinpoint growth-pending Sepsis source -combination of osteomyelitis with diabetic foot wound, UTI, bacteremia Transthoracic ECHO no valvular vegetation Hemodialysis catheter removed on 08/07 and catheter tip sent for culture-no growth -Continue to follow repeat blood cultures -Initially on zosyn and vancomycin for broad-spectrum coverage due to diabetic foot wound as well as MSSA bacteremia-now transitioned to IV Ancef for MSSA, and IV ampicillin for Enterococcus UTI -ID on consult, recommend IV cefazolin 2g 3 times weekly with HD (3) Acute osteomyelitis of right calcaneus: MRI right ankle with osteomyelitis of the calcaneus, Charcot foot, and high-grade tears of the posterior medial tendons Now status post right foot ulcer debridement and calcanectomy with Dr. Naqvi on 08/09 Postoperative care as per orthopedic surgery ID on consult (4) PAD (peripheral artery disease): With severe PAD based on clinical exam and bilateral lower extremity arterial Dopplers showing advanced peripheral vascular disease with multifocal bilateral vascular occlusions Vascular surgery consulted-plan for intervention after bacteremia clears likely thursday/thursday (5) Discitis of thoracic region: Suspected based on CT chest findings. May need MRI t-spine but does not complain of pain at the site-does not seem likely source continue with IV abx as above (6) Acute metabolic encephalopathy: now resolved (7) UTI (urinary tract infection): completed a course of antibiotics (8) Chronic kidney disease requiring chronic dialysis: permacath has been inserted Now on HD appreciate Nephrology recs (9) Depression: Recently on 120mg of cymbalta. Dose reduced while patient was at [facility]. Continue 30mg daily. (10) Coronary artery disease: History uncertain. With WMAs on ECHO here Mild troponin elevation c/w myocardial demand ischemia rather than ACS. Cardiology consult appreciated continue statin, not on ASA, beta noel-had recent GI bleed and should not be on antiplatelets right now (11) Diabetic peripheral neuropathy: Continue gabapentin Cont cymbalta. (12) Ischemic cardiomyopathy: noted to have EF 30-35% on ECHO with WMAs, mod-severe , elevated RVSP not volume overloaded holding home lasix BPs cannot tolerate beta noel or hydralazine/isosorbide and renal function can't handle ACEi/ARB (13) Hypothyroidism: TSH wnl. Continue levothyroxine 88mcg daily. (14) Anemia in chronic renal disease: monitor Iron studies show normal serum iron, transferrin sat not performed B12 and folate normal (15) Chronic respiratory failure with hypoxia: 2L NC 02 at baseline. (16) Hypomagnesemia: replaced and normalized (17) Aortic stenosis: mod-severe on ECHO here Will need to be followed as an outpatient (18) Abdominal pain: now resolved (19) Hyperglycemia: Hba1c 5.6%, but may be spurious due to anemia. Significant hyperglycemia now improved Pharmacy is managing insulin (20) History of GI bleed: recent AVM bleeding/UGI bleed as per reports from hospitalization in [place] continue PPI bid Avoiding antiplatelets for now (21) Candidiasis of mouth and esophagus: nystatin 5cc qid swish/spit. (22) Coagulopathy: No evidence of DIC. Liver disease? vitamin K deficiency? other? (23) Obstructive sleep apnea: History of. Not on CPAP by report. (24) Obesity: BMI 30 (25) DVT prophylaxis: Heparin SQ-okay to restart now 24 hours after surgery discharge to center care today after dialysis Total Time Total Time Spent Total Time Spent (In Minutes): 35 Discharge Plan Discharge Items Patient Disposition: Transfer Intermediate Fac Reason For Visit: SEPTIC SHOCK Discharge Diagnosis: septic shock- resolved Condition on Discharge: Good Activity: Resume your previous activity Non-emergency contact: Primary Care Provider and [employer] Call non-emergency contact if: you have any medication questions Follow-up/Referrals: [facility] [Primary Care Provider] - Diet: Regular Addtl Attending Provider Instructions: please make 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 Pending Studies at Discharge: No Stand-Alone Forms: My [facility] Skilled Items Patient informed of condition?: Yes DNR: Yes Discharge Level of Care: Skilled Communicable Disease: No Discharge Prognosis: Stable Lines: None Urinary Catheter: No Medications and DC Order Prescriptions: Continued atorvastatin 40 mg Tablet 80 mg PO QDD RF: 0 acetaminophen [Tylenol] 325 mg Tablet 650 mg PO Q4H PRN (Reason: Pain) RF: 0 sennosides-docusate sodium [Senokot-S] 8.6-50 mg Tablet 1 tab-cap PO QDL PRN (Reason: Constipation) RF: 0 levothyroxine 88 mcg Tablet 88 mcg PO DAILYBB RF: 0 magnesium hydroxide [Milk of Magnesia] 400 mg/5 mL Suspension 30 ml PO DAILY PRN (Reason: Constipation) RF: 0 tamsulosin [Flomax] 0.4 mg Capsule 0.4 mg PO HS RF: 0 furosemide [Lasix] 80 mg Tablet 80 mg PO BID RF: 0 bisacodyl 10 mg Suppository 10 mg VT DAILY PRN (Reason: Constipation) RF: 0 pantoprazole 40 mg Tablet,Delayed Release (Dr/Ec) 40 mg PO BID RF: 0 docusate sodium 100 mg Capsule 100 mg PO BID RF: 0 gabapentin 100 mg Capsule 200 mg PO HS RF: 0 nystatin 100,000 unit/gram Powder 1 applic TOPICAL BID RF: 0 B complex with C 20-folic acid 1 mg Capsule 1 cap PO DAILY RF: 0 polyethylene glycol 3350 [Miralax] 17 gram/dose Powder 17 g PO QDL PRN (Reason: Constipation) RF: 0 midodrine 10 mg Tablet 20 mg PO 3XWK RF: 0 duloxetine 30 mg Capsule,Delayed Release(Dr/Ec) 30 mg PO DAILY RF: 0 darbepoetin jono in polysorbat 60 mcg/0.3 mL Pen Injector 60 mcg SUBCUT WK RF: 0 Discontinued tramadol 50 mg Tablet 50 mg PO Q12H PRN (Reason: Pain) RF: 0 piperacillin-tazobactam [Zosyn] 2.25 gram Recon Soln 2.25 g IV Q8H RF: 0 Discharge Orders: Discharge Order (Routine); Ordered 08/14/21 Ordered By: Rambo Mead Admission Data Admit Date/Time: 08/04/21 19:26 Attending Provider: Rambo Mead Admit Provider: Lalit Roberson [facility] Other Providers: [place] ; Tod Washington ; Julia Smart ; Wilfrid Alvarado I. ; Ronen Wilkinson II ; Fariba Orozco ; Wes Arce ; Phong Feng ; Lalit Roberson ; Jono Paul ; Gerson Paulson ; Alfredo So ; Inocencio Pablo ; Nolberto Naqvi Other Interventions: Discharge Summary Assessment (RN) Last Done: 08/14/21 11:04 Coding Level of Care Code D/C DAY MANAGEMENT >30 MINS Diagnoses Septic shock A41.9; R65.21 Bacteremia R78.81 Acute osteomyelitis of right calcaneus M86.171 PAD (peripheral artery disease) I73.9 Discitis of thoracic region M46.44 Acute metabolic encephalopathy G93.41 UTI (urinary tract infection) N39.0 Chronic kidney disease requiring chronic dialysis N18.6; Z99.2 Depression F32.A Coronary artery disease I25.10 Diabetic peripheral neuropathy E11.42 Ischemic cardiomyopathy I25.5 Hypothyroidism E03.9 Anemia in chronic renal disease N18.9; D63.1 Chronic respiratory failure with hypoxia J96.11 Hypomagnesemia E83.42 Aortic stenosis I35.0 Abdominal pain R10.9 Hyperglycemia R73.9 History of GI bleed Z87.19 Candidiasis of mouth and esophagus B37.81; B37.0 Coagulopathy D68.9 Obstructive sleep apnea G47.33 Obesity E66.9 DVT prophylaxis Z29.9 Time Spent (min) 35
[2021-08-15 03:42] LABS: HBSAG NON-REACTIVE (NON-REACTIVE)
[2021-08-15 08:31] LABS: Hepatitis BE Antibody Nonreactive; Hepatitis BE Antigen Nonreactive
== END 2021-08-14 13:46 | DRG 853 ==
LOC: ED 17:07 → 1E 19:26 → SUATTDRO 19:26 → 1E 20:19 → 2S 08-08 15:55
DX: K55.21 Angiodysplasia of colon with hemorrhage; I24.8 Other forms of acute ischemic heart disease; J96.11 Chronic respiratory failure with hypoxia; B37.81 Candidal esophagitis; E11.69 Type 2 diabetes mellitus with other specified complication; B95.2 Enterococcus as the cause of diseases classified elsewhere; Z99.2 Dependence on renal dialysis; D63.1 Anemia in chronic kidney disease; Z79.890 Hormone replacement therapy; I47.1 Supraventricular tachycardia; E03.9 Hypothyroidism, unspecified; B37.0 Candidal stomatitis; Z68.30 Body mass index [BMI] 30.0-30.9, adult; E11.42 Type 2 diabetes mellitus with diabetic polyneuropathy; A41.01 Sepsis due to Methicillin susceptible Staphylococcus aureus; E66.9 Obesity, unspecified; L97.505 Non-pressure chronic ulcer of other part of unspecified foot with muscle involvement without evidence of necrosis; G93.41 Metabolic encephalopathy; E11.65 Type 2 diabetes mellitus with hyperglycemia; I35.0 Nonrheumatic aortic (valve) stenosis; I25.10 Atherosclerotic heart disease of native coronary artery without angina pectoris; I25.5 Ischemic cardiomyopathy; R65.21 Severe sepsis with septic shock; M46.44 Discitis, unspecified, thoracic region; E11.52 Type 2 diabetes mellitus with diabetic peripheral angiopathy with gangrene; M65.171 Other infective (teno)synovitis, right ankle and foot; A52.16 Charcot's arthropathy (tabetic); M86.171 Other acute osteomyelitis, right ankle and foot; I12.0 Hypertensive chronic kidney disease with stage 5 chronic kidney disease or end stage renal disease; M46.24 Osteomyelitis of vertebra, thoracic region; F32.A Depression, unspecified; G47.33 Obstructive sleep apnea (adult) (pediatric); Z88.8 Allergy status to other drugs, medicaments and biological substances; N18.6 End stage renal disease; E11.22 Type 2 diabetes mellitus with diabetic chronic kidney disease; N39.0 Urinary tract infection, site not specified; E11.621 Type 2 diabetes mellitus with foot ulcer

== ENCOUNTER 2021-11-06 12:10 | Inpatient (IN) ==
[2021-11-06] MEDS ORDERED: SODIUM CHLORIDE 0.9% 500 ML IV ONE (12:36)
--- NOTE | 2021-11-06 12:39 | Emergency Department Note ---
Impression & Plan Cellulitis, Hypomagnesemia, Diabetic foot ulcer ED Provider Note NAME: SHANEL HARDY AGE: 71 SEX: F : 1950 ARRIVES VIA: Walk-In INFORMANT: Patient ED PROVIDER(S): Nigel Begum DO CHIEF COMPLAINT: HPI: Patient is a 71-year-old female with a past medical history of peripheral artery disease, aortic stenosis, end-stage renal disease on dialysis received full course today, ischemic cardiomyopathy, bacteremia, diabetic neuropathy and CAD that presents the ER for worsening leg wounds. She was recently admitted with MSSA sepsis secondary to the right calcaneus back in August. Right foot has been worsening over the past week and has been evaluated nearly daily by Dr. Osborn at [facility]. Patient had fevers up until about 2 days ago and they have been slightly improving. She is going out MRSA and Proteus currently with the current wounds. He denies any headache or change in vision. No chest pain or shortness of breath. No nausea vomiting or diarrhea. [facility] notes that she was tachycardic and slightly hypertensive and consequently was referred over today. She has been on Doxy and Levaquin. ROS: See above HPI for pertinent positives & negatives. A total of 10 systems reviewed and were otherwise negative. PAST MEDICAL HISTORY:See Below PAST SURGICAL HISTORY:See Below FAMILY HISTORY:See Below SOCIAL HISTORY:See Below HOME MEDICATIONS:See Below ALLERGIES:See Below VITALS:See Below PHYSICAL EXAMINATION: GENERAL: Sitting up in bed, alert, likely ill-appearing, disheveled EYE EXAM: normal conjunctiva. OROPHARYNX: no exudate, no erythema, lips, buccal mucosa, and tongue normal and mucous membranes are moist NECK: supple, no nuchal rigidity, no adenopathy, non-tender LUNGS: Clear to auscultation. Normal chest wall mechanics HEART: no murmurs, S1 normal and S2 normal ABDOMEN: abdomen soft, non-tender, normo-active bowel sounds, no masses, no rebound or guarding. UPPER EXTREMITIES: upper extremities are grossly normal. LOWER EXTREMITIES: Ulcer over the left heel appears to be slightly necrotic. Blood with slight necrosis over the right lateral and right medial foot with surrounding erythema tracking up to the mid sánchez NEURO EXAM: Normal sensorium, cranial nerves II-XII grossly intact, normal speech, no gross weakness of arms, no gross weakness of legs. MEDICAL DECISION MAKING: Patient is a 71-year-old female who presents the ER for the boasting complaint referred in by Dr. Osborn for admission for failure of outpatient treatment. IV was established blood work was obtained. Labs show no significant leukocytosis. Mild anemia. BMP with mild hyponatremia 134. Creatinine pretty consistent with previous at 2.1. LFTs lactate were normal. COVID was negative. Do favor that there is likely a component of osteo but will defer to the hospitalist for MRI of the feet. Patient was given IV vancomycin and Rocephin due to previous cultures which had Proteus and MRSA. Patient was updated bedside. Discussed with Dr. Garza for further evaluation. Triage Nursing notes reviewed. Limited review of prior medical records performed Vital Signs: reviewed and remarkable for tachy and htn Differential diagnosis: Differential diagnosis includes etiologies such as sepsis, UTI, pneumonia, metabolic, electrolyte abnormalities, cardiac sources, intracerebral event, toxicologic, neurological, as well as others were entertained. ER treatment provided: See below Diagnostics interpreted by me: ECG: Sinus tachycardia rate of 102 Left axis Non-ST segment elevation in V2 Septal Q waves in V4 through V6 ST wave changes or change from lateral leads Cardiac Monitoring: An order was placed for continuous cardiac monitoring. The monitor shows a rate of 104 with sinus rhythm. Laboratory studies: As stated above and show below. Imaging studies: See below Consultation(s): Discussed with hospitalist for further evaluation Dr. Quiroz Procedures: none Critical Care: None Past Med/Surg History Medical History (Updated 11/06/21 @ 18:39 by Nigel Begum DO) Anemia in chronic renal disease Aortic stenosis Chronic respiratory failure with hypoxia Coronary artery disease Depression Diabetic peripheral neuropathy ESRD (end stage renal disease) on dialysis History of CVA (cerebrovascular accident) History of gastrointestinal bleeding Hypertension Hypothyroidism Ischemic cardiomyopathy Obesity Obstructive sleep apnea PAD (peripheral artery disease) Social History Smoking Status: Never smoker Second Hand Exposure: No; Hx Alcohol Use: No Hx Substance Use: No Preferred Language: Uzbek Communication Ability: Effective Nib Assembler Required: No Beliefs That Will Affect Care: None Current Living Situation: Family Current Living Situation Comment: pt was at a rehab facility previous lives with nephews that dont help her Feels Safe at Home: Yes Allergies Allergies Allergy/AdvReac Type Severity Reaction Status Date / Time cyclobenzaprine Allergy Unknown ON MED LIST Verified 11/06/21 17:08 [facility] Home Meds Home Medications Medication Instructions Recorded Confirmed Aquacel Ac Dressing 1 applic TOPICAL DAILY 11/06/21 11/06/21 Saccharomyces boulardii 250 mg 0 mg PO BID 11/06/21 11/06/21 capsule (Florastor) acetaminophen 325 mg tablet 650 mg PO Q6 PRN 11/06/21 11/06/21 (Tylenol) atorvastatin 80 mg tablet 80 mg PO QPM 11/06/21 11/06/21 bisacodyl 10 mg rectal suppository 10 mg [place] DIRECTED PRN 11/06/21 11/06/21 (Dulcolax (bisacodyl)) docusate sodium 100 mg capsule 100 mg PO BID 11/06/21 11/06/21 doxycycline hyclate 100 mg tablet 100 mg PO BID 11/06/21 11/06/21 duloxetine 30 mg capsule,delayed 30 mg PO DAILY 11/06/21 11/06/21 release gabapentin 100 mg capsule 200 mg PO QPM 11/06/21 11/06/21 insulin glargine 100 unit/mL 30 unit SUBCUT HS 11/06/21 11/06/21 subcutaneous solution (Lantus U-100 Insulin) insulin lispro 100 unit/mL See Rx Instructions .ROUTE .COMPLEX 11/06/21 11/06/21 subcutaneous solution (Humalog U-100 Insulin) levofloxacin 500 mg tablet 500 mg PO .Q2DAYS @HS 11/06/21 11/06/21 levothyroxine 88 mcg tablet 88 mcg PO DAILY 11/06/21 11/06/21 menthol 0.44 %-zinc oxide 20.6 % 1 applic TOPICAL QS 11/06/21 11/06/21 topical ointment (Calmoseptine) midodrine 10 mg tablet 10 mg PO MOWEFR 11/06/21 11/06/21 pantoprazole 40 mg tablet,delayed 40 mg PO BID 11/06/21 11/06/21 release protein supplement 1 ea PO DAILY 11/06/21 11/06/21 sevelamer carbonate 800 mg tablet 800 mg PO .Q24HRS PRN 11/06/21 11/06/21 sevelamer carbonate 800 mg tablet 800 mg PO TIDM 11/06/21 11/06/21 vitamin B complex and vitamin C 1 cap PO DAILY 11/06/21 11/06/21 no.20-folic acid 1 mg capsule Results & Data (ED) Vital Signs Vital Signs - 24 hr 11/06/21 12:24 11/06/21 12:36 11/06/21 13:00 Temperature 36.8 C Temperature Source Temporal Artery Scan Pulse Rate 112 H 108 H Pulse Rate from SpO2 Sensor 109 H Respiratory Rate 22 19 Respiratory Effort / Characteristics Non-Labored Respiratory Depth Normal Respiratory Pattern Regular Blood Pressure 141/85 H Blood Pressure Mean 103 Blood Pressure Position Sitting Pulse Oximetry 92 96 97 Oxygen Delivery Method Room Air Room Air Sepsis Recent Fever Within 48 Hours No Sepsis New/Unexplained Change in Mental Status N/A Sepsis Action Taken by Nursing No Action Required 11/06/21 13:30 11/06/21 14:00 11/06/21 14:30 Temperature Temperature Source Pulse Rate 105 H 104 H 103 H Pulse Rate from SpO2 Sensor 105 H 104 H 103 H Respiratory Rate 27 H 24 22 Respiratory Effort / Characteristics Respiratory Depth Respiratory Pattern Blood Pressure 105/60 124/71 Blood Pressure Mean 75 88 Blood Pressure Position Pulse Oximetry 96 96 96 Oxygen Delivery Method Sepsis Recent Fever Within 48 Hours Sepsis New/Unexplained Change in Mental Status Sepsis Action Taken by Nursing 11/06/21 15:00 11/06/21 15:30 11/06/21 16:00 Temperature Temperature Source Pulse Rate 102 H 103 H 103 H Pulse Rate from SpO2 Sensor 102 H 100 H Respiratory Rate 20 22 24 Respiratory Effort / Characteristics Respiratory Depth Respiratory Pattern Blood Pressure 83/70 L 118/83 Blood Pressure Mean 121 74 94 Blood Pressure Position Pulse Oximetry 98 88 L Oxygen Delivery Method Sepsis Recent Fever Within 48 Hours Sepsis New/Unexplained Change in Mental Status Sepsis Action Taken by Nursing 11/06/21 16:30 11/06/21 17:00 11/06/21 17:30 Temperature Temperature Source Pulse Rate 104 H 104 H 104 H Pulse Rate from SpO2 Sensor 104 H 104 H 104 H Respiratory Rate 15 26 H 19 Respiratory Effort / Characteristics Respiratory Depth Respiratory Pattern Blood Pressure 126/68 99/61 L Blood Pressure Mean 87 73 Blood Pressure Position Pulse Oximetry 95 94 95 Oxygen Delivery Method Sepsis Recent Fever Within 48 Hours Sepsis New/Unexplained Change in Mental Status Sepsis Action Taken by Nursing 11/06/21 18:00 Temperature Temperature Source Pulse Rate Pulse Rate from SpO2 Sensor 104 H Respiratory Rate 27 H Respiratory Effort / Characteristics Respiratory Depth Respiratory Pattern Blood Pressure 114/62 Blood Pressure Mean 79 Blood Pressure Position Pulse Oximetry 93 Oxygen Delivery Method Sepsis Recent Fever Within 48 Hours Sepsis New/Unexplained Change in Mental Status Sepsis Action Taken by Nursing Laboratory Data Result diagrams: 11/06/21 12:42 11/06/21 12:42 Lab Results 11/06/21 11/06/21 11/06/21 Range/Units 12:42 12:42 12:42 WBC 10.80 (4.8-10.8) K/ul RBC 3.91 L (3.93-5.22) M/uL Hgb 11.5 L (12.0-16.0) g/dl Hct 35.9 (34.1-44.9) % MCV 91.8 (80.0-100.0) fL MCH 29.4 (25.0-34.0) pg MCHC 32.0 (32.0-36.0) g/dL RDW Std Deviation 53.2 H (36.4-46.3) fL RDW Coeff of Juno 15.9 H (11.5-14.5) % Plt Count 284 (130-400) K/uL MPV 9.3 L (9.4-12.3) fL Immature Gran % (Auto) 0.6 % Neut % (Auto) 64.9 % Lymph % (Auto) 22.5 % Terry % (Auto) 9.6 % Eos % (Auto) 1.9 % Baso % (Auto) 0.5 % Neut # (Auto) 7.02 H (1.4-6.5) K/uL Lymph # (Auto) 2.43 (1.2-3.4) K/uL Terry # (Auto) 1.04 H (0.24-0.82) K/uL Eos # (Auto) 0.20 (0-0.50) K/uL Baso # (Auto) 0.05 (0-0.2) K/uL Immature Gran # (Auto) 0.06 H (0.00-0.02) K/uL ESR (0-30) mm/hr PT 12.7 H (9.0-12.0) Seconds INR 1.2 H (0.9-1.1) APTT 30.2 (21.0-31.0) Seconds PTT Ratio 1.1 Sodium 134 L (136-145) mmol/L Potassium 3.8 (3.5-5.1) mmol/L Chloride 94 L (98-107) mmol/L Carbon Dioxide 32 (21-32) mmol/L Anion Gap 8 (3-11) BUN 15 (6-23) mg/dl Creatinine 2.19 H (0.6-1.2) mg/dl Est Cr Clr Drug Dosing 24.3 ml/min Est GFR ( Amer) 25.6 ml/min Est GFR (Non-Af Amer) 22.1 ml/min BUN/Creatinine Ratio 6.8 L (10-20) Glucose 145 H (70-99(Fasting)) mg/dl Lactate (0.4-2.0) mmol/L Calcium 8.8 (8.5-10.1) mg/dl Magnesium 1.5 L (1.7-2.4) mg/dl Total Bilirubin 0.6 (0.2-1.0) mg/dl AST 29 (13-39) U/L ALT 12 (7-52) U/L Alkaline Phosphatase 113 H (34-104) U/L Total Protein 7.9 (6.0-8.3) gm/dl Albumin 3.1 L (3.4-5.0) gm/dl Globulin 4.8 H (2.5-4.0) gm/dl Albumin/Globulin Ratio 0.6 L (0.9-2) SARS-CoV-2, RNA, NAAT (NEGATIVE) 11/06/21 11/06/21 11/06/21 Range/Units 12:42 12:42 12:58 WBC (4.8-10.8) K/ul RBC (3.93-5.22) M/uL Hgb (12.0-16.0) g/dl Hct (34.1-44.9) % MCV (80.0-100.0) fL MCH (25.0-34.0) pg MCHC (32.0-36.0) g/dL RDW Std Deviation (36.4-46.3) fL RDW Coeff of Juno (11.5-14.5) % Plt Count (130-400) K/uL MPV (9.4-12.3) fL Immature Gran % (Auto) % Neut % (Auto) % Lymph % (Auto) % Terry % (Auto) % Eos % (Auto) % Baso % (Auto) % Neut # (Auto) (1.4-6.5) K/uL Lymph # (Auto) (1.2-3.4) K/uL Terry # (Auto) (0.24-0.82) K/uL Eos # (Auto) (0-0.50) K/uL Baso # (Auto) (0-0.2) K/uL Immature Gran # (Auto) (0.00-0.02) K/uL ESR 106 H (0-30) mm/hr PT (9.0-12.0) Seconds INR (0.9-1.1) APTT (21.0-31.0) Seconds PTT Ratio Sodium (136-145) mmol/L Potassium (3.5-5.1) mmol/L Chloride (98-107) mmol/L Carbon Dioxide (21-32) mmol/L Anion Gap (3-11) BUN (6-23) mg/dl Creatinine (0.6-1.2) mg/dl Est Cr Clr Drug Dosing ml/min Est GFR ( Amer) ml/min Est GFR (Non-Af Amer) ml/min BUN/Creatinine Ratio (10-20) Glucose (70-99(Fasting)) mg/dl Lactate 1.7 (0.4-2.0) mmol/L Calcium (8.5-10.1) mg/dl Magnesium (1.7-2.4) mg/dl Total Bilirubin (0.2-1.0) mg/dl AST (13-39) U/L ALT (7-52) U/L Alkaline Phosphatase (34-104) U/L Total Protein (6.0-8.3) gm/dl Albumin (3.4-5.0) gm/dl Globulin (2.5-4.0) gm/dl Albumin/Globulin Ratio (0.9-2) SARS-CoV-2, RNA, NAAT NEGATIVE (NEGATIVE) Administered Medications Discontinued Medications Sodium Chloride (Nss) 500 mls @ 999 mls/hr IV .Q31M ONE Stop: 11/06/21 13:06 Last Infusion: 11/06/21 14:44 Dose: 0 mls/hr Documented by: [id number] Admin: 11/06/21 13:46 Dose: 999 mls/hr Documented by: [id number] Vancomycin HCl 1,500 mg/ (Sodium Chloride) 530 mls @ 200 mls/hr IV NOW STA Stop: 11/06/21 15:28 Last Admin: 11/06/21 13:54 Dose: 200 mls/hr Documented by: [id number] Ceftriaxone Sodium (Rocephin) 2,000 mg in 70 mls @ 140 mls/hr IV NOW STA Stop: 11/06/21 13:37 Last Infusion: 11/06/21 14:43 Dose: 0 mls/hr Documented by: [id number] Admin: 11/06/21 13:52 Dose: 140 mls/hr Documented by: [id number] Imaging Data Radiologist's Impression: Chest X-Ray 11/06/21 12:36 XR chest 1V portable HISTORY: 71 years-old Female SEPSIS acute sepsis COMPARISON: Chest CT 08/04/2021 TECHNIQUE: AP view of the chest FINDINGS: The cardiac silhouette is enlarged. Right IJ dual-lumen hemodialysis catheter distal tip projects over the inferior SVC/superior cavoatrial junction. No pneumothorax or large pleural effusion. Interstitial coarsening with linear mid lung predominant opacities are redemonstrated. Degenerative changes of the shoulders and spine. IMPRESSION: 1. Cardiomegaly without acute process. 2. Interstitial coarsening with linear mid lung predominant opacities redemonstrated suggestive of atelectasis versus scarring. ACT 112: Negative or not required by law. The above report was generated using voice recognition software. It may contain grammatical, syntax or spelling errors. Electronically signed by: Dinesh Stacy M.D. 11/06/2021 12:56 PM Ankle X-Ray 11/06/21 17:31 XR ankle RT 2V CLINICAL HISTORY: sepsis, ? osteomyelitis COMPARISON: MRI of the right ankle August 08, 2021. Right ankle radiographs August 09, 2021. FINDINGS: Osteopenia is again noted as well as extensive vascular calcification. Old post traumatic findings within the distal right tibia and fibula are noted. Tibiotalar joint space narrowing with irregularity of the talar dome is chronic and represents osteoarthritis. Postoperative findings within the calcaneus are again noted with bone loss. There may be mild interval bone loss since prior exam of August 09, 2021. IMPRESSION: 1. Postoperative findings consistent with resection of the posterior calcaneus. Possible mild interval bone loss since prior exam although evaluation difficult given severe osteopenia. This may reflect osteomyelitis. 2. Otherwise, no significant change in appearance of the right ankle, as described above. ACT 112: Negative or not required by law. Electronically signed by: Abram Pinon M.D. 11/06/2021 6:22 PM Discharge Plan Visit Data Chief Complaint: Abnormal Labs/Diagnostic Testing Stated Complaint: ABNORMAL LABS, MERSA IN FOOT ED Provider: Nigel Begum Discharge Problem: Cellulitis, Hypomagnesemia, Diabetic foot ulcer Patient Disposition: Admitted As Inpatient Forms Stand Alone Forms: [facility] Prescriptions Prescriptions: No Action Aquacel Ac Dressing 1 applic topical DAILY RF: 0 atorvastatin 80 mg tablet 80 mg PO QPM RF: 0 acetaminophen [Tylenol] 325 mg Tablet 650 mg PO Q6 PRN (Reason: Fever Or Pain) RF: 0 insulin glargine [Lantus U-100 Insulin] 100 unit/mL solution 30 unit SUBCUT HS RF: 0 levothyroxine 88 mcg tablet 88 mcg PO DAILY RF: 0 bisacodyl [Dulcolax (bisacodyl)] 10 mg Suppository 10 mg [place] DIRECTED PRN (Reason: Constipation) RF: 0 pantoprazole 40 mg tablet,delayed release (DR/EC) 40 mg PO BID RF: 0 docusate sodium 100 mg Capsule 100 mg PO BID RF: 0 gabapentin 100 mg capsule 200 mg PO QPM RF: 0 insulin lispro [Humalog U-100 Insulin] 100 unit/mL solution See Rx Instructions .ROUTE .COMPLEX RF: 0 Nephrocaps 1 mg Capsule 1 cap PO DAILY RF: 0 levofloxacin 500 mg tablet 500 mg PO .Q2DAYS @HS RF: 0 doxycycline hyclate 100 mg tablet 100 mg PO BID RF: 0 midodrine 10 mg tablet 10 mg PO MOWEFR RF: 0 Saccharomyces boulardii [Florastor] 250 mg Capsule 0 mg PO BID RF: 0 duloxetine 30 mg capsule,delayed release(DR/EC) 30 mg PO DAILY RF: 0 Liquacel Liquid 1 ea PO DAILY RF: 0 sevelamer carbonate 800 mg tablet 800 mg PO .Q24HRS PRN (Reason: SNACK) RF: 0 sevelamer carbonate 800 mg tablet 800 mg PO TIDM RF: 0 menthol-zinc oxide [Calmoseptine] 0.44-20.6 % Ointment 1 applic TOPICAL QS RF: 0 Referrals Referrals: [facility] [Primary Care Provider] - Discharge Problem: Cellulitis Qualifiers: Site of cellulitis: unspecified site Qualified Code(s): L03.90 - Cellulitis, unspecified Diabetic foot ulcer Qualifiers: Diabetic foot ulcer location: unspecified part of foot Diabetes mellitus type: other specified (including TU) Laterality: unspecified laterality Non-pressure ulcer stage: unspecified non-pressure ulcer stage Qualified Code(s): E13.621 - Other specified diabetes mellitus with foot ulcer
[2021-11-06] MEDS ORDERED: VANCOMYCIN HCL 1,500 MG in SODIUM CHLORIDE 0.9% 500 ML IV STA (12:50)
--- NOTE | 2021-11-06 12:57 | XRay Report ---
XR chest 1V portable HISTORY: 71 years-old Female SEPSIS acute sepsis COMPARISON: Chest CT 08/04/2021 TECHNIQUE: AP view of the chest FINDINGS: The cardiac silhouette is enlarged. Right IJ dual-lumen hemodialysis catheter distal tip projects ove r the inferior SVC/superior cavoatrial junction. No pneumothorax or large pleural effusion. Interstit ial coarsening with linear mid lung predominant opacities are redemonstrated. Degenerative changes of the shoulders and spine. IMPRESSION: 1. Cardiomegaly without acute process. 2. Interstitial coarsening with linear mid lung predominant opacities redemonstrated suggestive of at electasis versus scarring. ACT 112: Negative or not required by law. The above report was generated using voice recognition software. It may contain grammatical, syntax o r spelling errors. Electronically signed by: Dinesh Stacy M.D. 11/06/2021 12:56 PM
[2021-11-06 13:05] LABS: Basophils # (auto) 0.05 K/uL (0-0.2); Basophils % (auto) 0.5 %; Eosinophils % (auto) 1.9 %; Hematocrit (blood only) 35.9 % (34.1-44.9); Hemoglobin 11.5 g/dl (12.0-16.0); Immature Granulocytes # (auto) 0.06 K/uL (0.00-0.02); Immature Granulocytes % (auto) 0.6 %; Lymphocytes # (auto) 2.43 K/uL (1.2-3.4); Lymphocytes % (auto) 22.5 %; Mean Corpuscular Hemoglobin 29.4 pg (25.0-34.0); Mean Corpuscular Volume 91.8 fL (80.0-100.0); Mean Platelet Volume 9.3 fL (9.4-12.3); Monocytes # (auto) 1.04 K/uL (0.24-0.82); Monocytes % (auto) 9.6 %; Neutrophils # (auto) 7.02 K/uL (1.4-6.5); Neutrophils % (auto) 64.9 %; Platelet Count 284 K/uL (130-400); RDW Coefficient of Variation 15.9 % (11.5-14.5); RDW Standard Deviation 53.2 fL (36.4-46.3); Red Blood Count 3.91 M/uL (3.93-5.22)
[2021-11-06] MEDS ORDERED: cefTRIAXone SODIUM 2,000 MG/70 ML BAG IV STA (13:08)
[2021-11-06 13:18] LABS: INR 1.2 (0.9-1.1); Partial Thromboplastin Ratio 1.1; Partial Thromboplastin Time 30.2 Seconds (21.0-31.0); Prothrombin Time 12.7 Seconds (9.0-12.0)
[2021-11-06 13:24] LABS: Albumin Globulin Ratio 0.6 (0.9-2); Albumin Level 3.1 gm/dl (3.4-5.0); BUN Creatinine Ratio 6.8 (10-20); Bilirubin,Total 0.6 mg/dl (0.2-1.0); Calcium 8.8 mg/dl (8.5-10.1); Creatinine Clr Calc Pharmacy 24.3 ml/min; Est GFR (African American) 25.6 ml/min; Est GFR (Non-African American) 22.1 ml/min; Globulin 4.8 gm/dl (2.5-4.0); Magnesium 1.5 mg/dl (1.7-2.4); Potassium 3.8 mmol/L (3.5-5.1); Total Protein 7.9 gm/dl (6.0-8.3)
--- NOTE | 2021-11-06 16:12 | History & Physical Report ---
Date of Service November 06, 2021 Assessment & Plan (1) Sepsis: Plan: - Source most likely diabetic foot wound/osteomyelitis in one or both feet/ankle. HD catheter access today for dialysis, does not appear infected. Wound cultures obtained on 10/31 at [facility], currently growing MRSA and Proteus. Had been started on Bactrim on 11/01, doxycycline on 11/02, and Levaquin 11/04. UA from 11/05 with >30 WBCs, 3+ leuk esterase, 1+ bacteria, however culture with no growth to date. Previously grew out Enterococcus faecalis in urine in August. - WBC 10.8, lactate 1.7. PCT, CRP, ESR pending. Patient is confused. - Start on vancomycin and Rocephin in ED, will switch Rocephin for Zosyn and continue vancomycin for broad-spectrum coverage. - Blood culture sent, urine culture from yesterday at [facility] pending. UA collected here, with reflex for culture. - Received 500 cc NS bolus in ED, will be cautious with further IVF as patient is ESRD patient on dialysis. - Did initially require Levophed upon last admission in August, so far maintaining MAP >65. - Will consult vascular surgery and orthopedics to evaluate and discuss need for further intervention. - In the meantime, x-rays orders of bilateral feet/ankles to look for osteomyelitis with consideration for MRI if x-rays do not provide definitive diagnosis. (2) Metabolic encephalopathy: Plan: - 2/2 to sepsis. Having difficultly recalling today's events, mixing up details. A+O x3 at baseline. - Supportive care i.e. treat sepsis/underlying infections and monitor for resolution. (3) PAD (peripheral artery disease): Plan: - Severe PAD based on clinical exam and bilateral lower extremity arterial Dopplers showing advanced peripheral vascular disease with multifocal bilateral vascular occlusions. - Dr. Pablo consulted as above. - Per previous notes, patient strongly opposed to amputation if it can be avoided. (4) Aortic stenosis: Plan: - Moderate to severe on echo in August. - Maintain adequate volume status. - Should follow up with cardiology outpt for this. (5) Ischemic cardiomyopathy: Plan: - Echo in August with EF 30-35%, septal akinesis, inferobasal akinesis, moderate global hypokinesis of left ventricle. - Elevated RVSP 40-50 mmHg. (6) ESRD (end stage renal disease) on dialysis: Plan: - Dialysis at [facility] , completed full treatment today without complications. - Consult [facility] nephrology. (7) Diabetic peripheral neuropathy: Plan: - Continue Lantus 30 u HS with SSI. - Diabetic diet. - Continue gabapentin for neuropathy. - A1c 9.4% in October. (8) Anemia in chronic renal disease: Plan: - Hgb 11.5, stable, without evidence of acute bleed. - Follow on AM CBC. - Iron studies in August showed normal serum iron, B12, and folate. (9) Coronary artery disease: Plan: - Chronic, stable. No acute needs. - Unclear history, did have wall motion abnormalities on echo in August 2021. - Continue statin, no longer on beta-noel due to hypotension, cannot tolerate SONDRA/ARB due to kidney function. (10) Depression: Plan: - Continue Cymbalta 30 mg daily. (11) Hypothyroidism: Plan: - Continue levothyroxine 88 mcg daily. - Check TSH with AM labs. (12) Chronic respiratory failure with hypoxia: Plan: - Reportedly uses 2L NC at baseline, however has been on RA in ED with SpO2 > 95% (13) UTI (urinary tract infection): Plan: - Asymptomatic, however previously grew out enterococcus faecalis. - UA fro 11/05 indicative of possible infection, culture without growth. Will repeat UA with reflex culture here. - Regardless, patient will be on broad spectrum abx in the meantime for sepsis/? osteo which will cover for UTI. (14) Hypomagnesemia: Plan: - 1.5, s/p dialysis this afternoon. - Recheck with AM labs. Plan: - Admit to PCU. - Heparin for VTE ppx. - DNR/DNI. History of Present Illness Chief Complaint: Worsening chronic bilateral foot wounds Primary Care Provider: [facility] Saida Manriquez is a 71-year-old female presenting from [facility] with past medical history significant for ESRD on dialysis with anemia of CKD, CAD, ischemic cardiomyopathy, aortic stenosis, severe PAD, hypertension, diabetes with neuropathy, AUDI, hypothyroidism who presents with worsening bilateral feet wounds and failing outpatient antibiotic therapy for this. Patient had a 10-day hospitalization in August of this year due to MSSA septic shock 2/2 right calcaneus osteomyelitis and UTI. She was initially treated in the ICU, requiring pressors and multiple antibiotics to treat her sepsis, ended up requiring removal of her permacath and underwent right calcanectomy. Blood cultures at that time grew MSSA, urine cultures with Enterococcus faecalis. She was discharged to [facility] on 08/14 with IV cefazolin 2g 3 times weekly with dialysis (unclear when IV cefazolin was discontinued) and has been under the care of Dr. Osborn. He has been monitoring her wounds. She tells me they had initially been improving with antibiotic therapy, and review of vascular note from 10/08 confirms that they seem to have been improving. However, patient and Dr. Osborn noticed over the past week that they began to look worse, specifically they dried up and had some purulent drainage on the right medial aspect as well as the left heel. She had a fever at one point and says she was a little confused for a day at [facility], but otherwise has been feeling well enough. When it became clear they had begun to appear worse, Dr. Osborn had collected cultures from the which are currently growing out MRSA and Proteus. She has been on Bactrim, doxycycline and Levaquin for the past few days. Despite this, they continue to worsen and patient has been tachycardic and hypertensive, as well as occasionally febrile. In ED, she has been tachycardic with highest reported HR 112, tachypneic at times, however SPO2 >95% on room air, normotensive and afebrile. Labs here today with WBC at upper end of normal limits 10.80, similar to labs done on 11/01. Creatinine 2.19, appears normal for patient dialysis. Na 34, Mg 1.5. UA from 11/05 with leukocyte esterase, WBCs, RBCs, and bacteria growth, however with 1020 epithelial cells. CXR showed cardiomegaly without acute process. Allergies Allergy/AdvReac Type Severity Reaction Status Date / Time cyclobenzaprine Allergy Unknown ON MED LIST Verified 11/06/21 17:08 [From [facility]] Home Medications Medication Instructions Recorded Confirmed Type Aquacel Ac Dressing 1 applic TOPICAL DAILY 11/06/21 11/06/21 History Saccharomyces boulardii 250 mg 0 mg PO BID 11/06/21 11/06/21 History capsule (Florastor) acetaminophen 325 mg tablet 650 mg PO Q6 PRN 11/06/21 11/06/21 History (Tylenol) atorvastatin 80 mg tablet 80 mg PO QPM 11/06/21 11/06/21 History bisacodyl 10 mg rectal suppository 10 mg VT DIRECTED PRN 11/06/21 11/06/21 History (Dulcolax (bisacodyl)) docusate sodium 100 mg capsule 100 mg PO BID 11/06/21 11/06/21 History doxycycline hyclate 100 mg tablet 100 mg PO BID 11/06/21 11/06/21 History duloxetine 30 mg capsule,delayed 30 mg PO DAILY 11/06/21 11/06/21 History release gabapentin 100 mg capsule 200 mg PO QPM 11/06/21 11/06/21 History insulin glargine 100 unit/mL 30 unit SUBCUT HS 11/06/21 11/06/21 History subcutaneous solution (Lantus U-100 Insulin) insulin lispro 100 unit/mL See Rx Instructions .ROUTE .COMPLEX 11/06/21 11/06/21 History subcutaneous solution (Humalog U-100 Insulin) levofloxacin 500 mg tablet 500 mg PO .Q2DAYS @HS 11/06/21 11/06/21 History levothyroxine 88 mcg tablet 88 mcg PO DAILY 11/06/21 11/06/21 History menthol 0.44 %-zinc oxide 20.6 % 1 applic TOPICAL QS 11/06/21 11/06/21 History topical ointment (Calmoseptine) midodrine 10 mg tablet 10 mg PO MOWEFR 11/06/21 11/06/21 History pantoprazole 40 mg tablet,delayed 40 mg PO BID 11/06/21 11/06/21 History release protein supplement 1 ea PO DAILY 11/06/21 11/06/21 History sevelamer carbonate 800 mg tablet 800 mg PO .Q24HRS PRN 11/06/21 11/06/21 History sevelamer carbonate 800 mg tablet 800 mg PO TIDM 11/06/21 11/06/21 History vitamin B complex and vitamin C 1 cap PO DAILY 11/06/21 11/06/21 History no.20-folic acid 1 mg capsule Past Med/Surg History Medical History (Updated 11/07/21 @ 08:11 by Lalit Quiroz) Anemia in chronic renal disease Aortic stenosis Chronic respiratory failure with hypoxia Coronary artery disease Depression Diabetic peripheral neuropathy Encounter for removal of vascular catheter 08/2021 - Dr Inocencio Pablo (HD catheter) ESRD (end stage renal disease) on dialysis History of CVA (cerebrovascular accident) History of gastrointestinal bleeding Hypertension Hypothyroidism Ischemic cardiomyopathy Obesity Obstructive sleep apnea PAD (peripheral artery disease) Surgical History (Updated 11/07/21 @ 08:11 by Lalit Quiroz) H/O foot surgery 08/2021 - right calcaneal resection 2nd to osteomyelitis - Dr Dick Naqvi Family History (Updated 11/07/21 @ 08:11 by Lalit Quiroz) Other No pertinent family history Social History Smoking Status: Never smoker Second Hand Exposure: No; Hx Alcohol Use: No Hx Substance Use: No Preferred Language: Romansh Communication Ability: Effective [employer] Executive [employer] Required: No Beliefs That Will Affect Care: None Current Living Situation: Long-Term Current Living Situation Comment: [facility] Feels Safe at Home: Yes Safety Concerns: Feels Safe At This Time Assistive Devices: Wheelchair Review of Systems Review of Systems: Constitutional: Isolated fever several days ago; otherwise noweakness, fatigue, myalgias, anorexia, night sweats Eyes: No diplopia, no worsening or blurred vision ENT: normal hearing, no trouble swallowing Respiratory: No cough, sputum, dyspnea at rest or on exertion Cardiovascular: No chest pain, tightness or palpitations Abdomen: No pain, nausea, vomiting, diarrhea or constipation : Denies dysuria, hematuria, increased urgency/frequency, urinary retention Musculoskeletal: No joint pain, calf pain, swelling Neurologic: No weakness, numbness/tingling, or balance problems Psychiatric: No anxiety or depression Skin: Skin discoloration and drainage from wounds on right and left wounds; no pruritus Physical Exam Physical Exam: General: awake, alert, no apparent distress Head: Normocephalic, atraumatic ENT: PERRL, EOMI, no pharyngeal exudate, mucous membranes moist Chest: Clear to auscultation, on room air, no adventitious breath sounds Cardiac: Regular rate and rhythm, no murmur, no JVD, normal peripheral pulses, good capillary refill Abdominal: NABS x 4 quadrants, soft, nontender to palpation, no rebound, guarding or tenderness Extremities: Normal inspection, no peripheral edema or erythema, calfs nontender to palpation Psych: Normal mood and affect Neuro: AAO x 3, strength intact bilaterally and rated 5/5, no motor deficits, speech is clear, no peripheral sensory deficits Skin: Ulcer over the left heel appears to be slightly necrotic. Blood with sl ight necrosis over the right lateral and right medial foot with surrounding erythema tracking up to the mid sánchez Results & Data Results & Data ([facility]) Vital Signs (Past 12 Hours) Vital Signs Temp Pulse Resp BP Pulse Ox 11/06/21 14:30 103 H 22 124/71 96 11/06/21 14:00 104 H 24 105/60 96 11/06/21 13:30 105 H 27 H 96 11/06/21 13:00 108 H 19 97 11/06/21 12:36 96 11/06/21 12:24 36.8 C 112 H 22 141/85 H 92 Laboratory Results Abnormal lab results 11/06/21 11/06/21 11/06/21 Range/Units 12:42 12:42 12:42 RBC 3.91 L (3.93-5.22) M/uL Hgb 11.5 L (12.0-16.0) g/dl RDW Std Deviation 53.2 H (36.4-46.3) fL RDW Coeff of Juno 15.9 H (11.5-14.5) % MPV 9.3 L (9.4-12.3) fL Neut # (Auto) 7.02 H (1.4-6.5) K/uL [place] # (Auto) 1.04 H (0.24-0.82) K/uL Immature Gran # (Auto) 0.06 H (0.00-0.02) K/uL ESR (0-30) mm/hr PT 12.7 H (9.0-12.0) Seconds INR 1.2 H (0.9-1.1) Sodium 134 L (136-145) mmol/L Chloride 94 L (98-107) mmol/L Creatinine 2.19 H (0.6-1.2) mg/dl BUN/Creatinine Ratio 6.8 L (10-20) Glucose 145 H (70-99(Fasting)) mg/dl Magnesium 1.5 L (1.7-2.4) mg/dl Alkaline Phosphatase 113 H (34-104) U/L C-Reactive Protein (0-0.5) mg/dl Albumin 3.1 L (3.4-5.0) gm/dl Globulin 4.8 H (2.5-4.0) gm/dl Albumin/Globulin Ratio 0.6 L (0.9-2) 11/06/21 11/06/21 Range/Units 12:58 12:58 RBC (3.93-5.22) M/uL Hgb (12.0-16.0) g/dl RDW Std Deviation (36.4-46.3) fL RDW Coeff of Juno (11.5-14.5) % MPV (9.4-12.3) fL Neut # (Auto) (1.4-6.5) K/uL [place] # (Auto) (0.24-0.82) K/uL Immature Gran # (Auto) (0.00-0.02) K/uL ESR 106 H (0-30) mm/hr PT (9.0-12.0) Seconds INR (0.9-1.1) Sodium (136-145) mmol/L Chloride (98-107) mmol/L Creatinine (0.6-1.2) mg/dl BUN/Creatinine Ratio (10-20) Glucose (70-99(Fasting)) mg/dl Magnesium (1.7-2.4) mg/dl Alkaline Phosphatase (34-104) U/L C-Reactive Protein 5.70 H (0-0.5) mg/dl Albumin (3.4-5.0) gm/dl Globulin (2.5-4.0) gm/dl Albumin/Globulin Ratio (0.9-2) Diagnostic Findings Chest X-Ray 11/06/21 12:36 XR chest 1V portable HISTORY: 71 years-old Female SEPSIS acute sepsis COMPARISON: Chest CT 08/04/2021 TECHNIQUE: AP view of the chest FINDINGS: The cardiac silhouette is enlarged. Right IJ dual-lumen hemodialysis catheter distal tip projects over the inferior SVC/superior cavoatrial junction. No pneumothorax or large pleural effusion. Interstitial coarsening with linear mid lung predominant opacities are redemonstrated. Degenerative changes of the shoulders and spine. IMPRESSION: 1. Cardiomegaly without acute process. 2. Interstitial coarsening with linear mid lung predominant opacities redemonstrated suggestive of atelectasis versus scarring. ACT 112: Negative or not required by law. The above report was generated using voice recognition software. It may contain grammatical, syntax or spelling errors. Electronically signed by: Dinesh Stacy M.D. 11/06/2021 12:56 PM Ankle X-Ray 11/06/21 17:31 XR ankle LT 2V CLINICAL HISTORY: sepsis, ? osteomyelitis COMPARISON: None FINDINGS: Alignment of the left ankle is anatomic. There is no acute fracture. Osteopenia is noted. This extensive vascular calcification. Plantar calcaneal spurring is noted. There is possible subtle erosion of the posterior aspect of the left calcaneus. Suspected overlying wound is present. IMPRESSION: 1. Possible subtle erosion of the posterior aspect of the left calcaneus. Although not definitive, this raises the possibility of osteomyelitis. 2. No acute fracture within the left ankle. 3. Extensive vascular calcification. Osteopenia. ACT 112: Negative or not required by law. Electronically signed by: Abram Pinon M.D. 11/06/2021 6:51 PM Ankle X-Ray 11/06/21 17:31 XR ankle RT 2V CLINICAL HISTORY: sepsis, ? osteomyelitis COMPARISON: MRI of the right ankle August 08, 2021. Right ankle radiographs August 09, 2021. FINDINGS: Osteopenia is again noted as well as extensive vascular calcification. Old post traumatic findings within the distal right tibia and fibula are noted. Tibiotalar joint space narrowing with irregularity of the talar dome is chronic and represents osteoarthritis. Postoperative findings within the calcaneus are again noted with bone loss. There may be mild interval bone loss since prior exam of August 09, 2021. IMPRESSION: 1. Postoperative findings consistent with resection of the posterior calcaneus. Possible mild interval bone loss since prior exam although evaluation difficult given severe osteopenia. This may reflect osteomyelitis. 2. Otherwise, no significant change in appearance of the right ankle, as described above. ACT 112: Negative or not required by law. Electronically signed by: Abram Pinon M.D. 11/06/2021 6:22 PM Foot X-Ray 11/06/21 17:31 XR foot RT min 3V routine CLINICAL HISTORY: sepsis,open wounds, ? osteomyelitis COMPARISON: MRI of the right ankle August 08, 2021. Right ankle radiograph August 09, 2021. FINDINGS: Postoperative findings involving the resection of the posterior calcaneus are noted. This is difficult to assess by radiography, however there is possible interval bone loss with cortical irregularity. Evaluation is difficult given severe osteopenia within the right foot. Possible wound of the lateral right midfoot is noted. No adjacent osteomyelitis is noted. There is extensive vascular calcification. Posttraumatic deformity of the distal right tibia and fibula is noted with severe tibiotalar joint osteoarthritis. No acute fractures identified on this exam. IMPRESSION: 1. Postoperative findings consistent with resection of the posterior calcaneus. Although evaluation difficult by radiography, particularly given severe osteopenia, possible interval bone loss with cortical regularity may reflect osteomyelitis of the right calcaneus. 2. Severe osteopenia. Extensive vascular calcification. No acute fracture. ACT 112: Negative or not required by law. Electronically signed by: Abram Pinon M.D. 11/06/2021 6:38 PM Foot X-Ray 11/06/21 17:31 XR foot LT min 3V routine CLINICAL HISTORY: sepsis, open wounds, ? osteomyelitis COMPARISON: None FINDINGS: Extensive vascular calcification is noted. There is no acute fracture within the left foot. There is an old, healed fracture of the left fifth proximal phalanx. Suspected wound overlying the posterior calcaneus is noted. There is subtle cortical irregularity of the posterior left calcaneus. There is equivocal erosion of the distal tuft of the distal phalanx of the left first toe. IMPRESSION: 1. Possible erosion of the posterior aspect of the left calcaneus and distal tuft of the distal phalanx of the left first toe. Osteomyelitis cannot be excluded. 2. No acute fracture 3. Extensive vascular calcification. Osteopenia. ACT 112: Negative or not required by law. Electronically signed by: Abram Pinon M.D. 11/06/2021 6:54 PM Code Status & VTE Plan Code Status DNR/DNI. Supervising Physician Co-Signing Physician Notes Attending Attestation and Admission Note: Pt seen/examined, chart reviewed, care plan d/w LIZET Conti. I agree w/ the rausch components of her documentation. 71yo female - medically complex with ESRD on HD M/W/F (did have full HD treatment at [facility] this am), DM with neuropathy, chronic systolic CHF, , severe b/l LE PAD, CAD - with hospital stay in 08/2021 for right calcaneal osteomyelitis with septicemia and shock. s/p right calcaneal resection by Dr Naqvi at that time. Dx with severe PAD of b/l LEs during that stay but nonoperative management pursued and has been followed in vascular clinic since August. Pt states wounds on both feet had been improving, but in the last week - particularly the right foot - she has developed worsening redness, drainage, etc. During my assessment she was mildly confused and couldn't remember if she had had dialysis today. PMH/PSH/allergies/meds/sochx/famhx - reviewed VSS, afebrile, sats wnl in RA gen - looks chronically ill, confused, NAD neck - no JVD heart - 2/6 systolic murmur LSB, RRR, s1 s2 lungs - minimal rales bases b/l, no increased work of breathing abd - soft NT ND vascular - popliteal pulses 1+ b/l; DP and post tib pulses b/l feet very faint b/l; cap refill 2-3 sec b/l skin - extensive ulceration overlying the heel of right foot; necrotic skin/black eschar with drainage and adjacent cellulitis of right heel; right 5th metatarsal ulcer with black eschar; toes with abrasions and signs of poor blood flow with tiny ulcerations/skin compromise; left foot - large black eschar/ulceration on heel; additional areas of devitalized skin on left foot musculo - b/l foot deformities (Charcot foot) much worse on right labs reviewed outpatient wound culture results reviewed A/P: 1. known h/o prior right calcaneus osteomyelitis requiring calcaneal resection - 08/2021 2. SEVERE PAD of b/l LEs 3. worsening multiple ulcerations with necrosis of b/l feet, RIGHT > LEFT, with worst ulceration over RIGHT heel 4. wound infection with recent culture showing MRSA & proteus 5. ESRD on HD M/W/F I am concerned that there is likely deeper infection (ie osteomyelitis) of both heels given the severity of the outward appearance of these wounds. I am also concerned that the right foot may not be salvageable in light of extensiveness of her wounds, the severe PAD, etc. Plan - * x-rays of b/l feet and b/l ankles * likely to need advanced imaging in the form of MRIs * ortho consult with Dr Naqvi * zosyn/vanco IV for wound infection * spoke with Dr Pablo from vascular - he is not personally available this week for consultation, but his PA Pippa Gipson may be able to see Ms Manriquez this week; at this point she may need intervention of her severe b/l LE PAD * wound care consultation * [facility] nephrology consultation for HD needs Lalit Quiroz MD PG Care Time/CCT Total # of Minutes Spent Total Time Spent with Patient: Total time spent is greater than 50% in coordination of care (as documented) at patient's floor/unit and/or counseling patient: Coding Level of Care Code 31370 Initial Inpt Care Lvl 3 Diagnoses ESRD (end stage renal disease) on dialysis N18.6; Z99.2 PAD (peripheral artery disease) I73.9 Aortic stenosis I35.0 Ischemic cardiomyopathy I25.5 Diabetic peripheral neuropathy E11.42 Coronary artery disease I25.10 Depression F32.A Sepsis A41.9 Sepsis acute organ dysfunction status: unspecified Sepsis type: sepsis due to unspecified organism Hypothyroidism E03.9 Anemia in chronic renal disease N18.9; D63.1 Chronic respiratory failure with hypoxia J96.11 UTI (urinary tract infection) N39.0 Hypomagnesemia E83.42 Metabolic encephalopathy G93.41 (1) Sepsis Sepsis acute organ dysfunction status: unspecified Sepsis type: sepsis due to unspecified organism Qualified Code(s): A41.9 - Sepsis, unspecified organism
[2021-11-06] MEDS ORDERED: PIPERACILLIN/TAZOBACTAM 4.5 GM/120 ML BAG IV ONE ×2 (17:45→20:15)
--- NOTE | 2021-11-06 18:24 | XRay Report ---
XR ankle RT 2V CLINICAL HISTORY: sepsis, ? osteomyelitis COMPARISON: MRI of the right ankle August 08, 2021. Right ankle radiographs August 09, 2021. FINDINGS: Osteopenia is again noted as well as extensive vascular calcification. Old post traumatic findings within the distal right tibia and fibula are noted. Tibiotalar joint space narrowing with ir regularity of the talar dome is chronic and represents osteoarthritis. Postoperative findings within the calcaneus are again noted with bone loss. There may be mild interval bone loss since prior exam o f August 09, 2021. IMPRESSION: 1. Postoperative findings consistent with resection of the posterior calcaneus. Possible mild interva l bone loss since prior exam although evaluation difficult given severe osteopenia. This may reflect osteomyelitis. 2. Otherwise, no significant change in appearance of the right ankle, as described above. ACT 112: Negative or not required by law. Electronically signed by: Abram Pinon M.D. 11/06/2021 6:22 PM
--- NOTE | 2021-11-06 18:40 | XRay Report ---
XR foot RT min 3V routine CLINICAL HISTORY: sepsis,open wounds, ? osteomyelitis COMPARISON: MRI of the right ankle August 08, 2021. Right ankle radiograph August 09, 2021. FINDINGS: Postoperative findings involving the resection of the posterior calcaneus are noted. This is difficult to assess by radiography, however there is possible interval bone loss with cortical irr egularity. Evaluation is difficult given severe osteopenia within the right foot. Possible wound of t he lateral right midfoot is noted. No adjacent osteomyelitis is noted. There is extensive vascular ca lcification. Posttraumatic deformity of the distal right tibia and fibula is noted with severe tibiot alar joint osteoarthritis. No acute fractures identified on this exam. IMPRESSION: 1. Postoperative findings consistent with resection of the posterior calcaneus. Although evaluation d ifficult by radiography, particularly given severe osteopenia, possible interval bone loss with corti renuka regularity may reflect osteomyelitis of the right calcaneus. 2. Severe osteopenia. Extensive vascular calcification. No acute fracture. ACT 112: Negative or not required by law. Electronically signed by: Abram Pinon M.D. 11/06/2021 6:38 PM
--- NOTE | 2021-11-06 18:53 | XRay Report ---
XR ankle LT 2V CLINICAL HISTORY: sepsis, ? osteomyelitis COMPARISON: None FINDINGS: Alignment of the left ankle is anatomic. There is no acute fracture. Osteopenia is noted. This extensive vascular calcification. Plantar calcaneal spurring is noted. There is possible subtle erosion of the posterior aspect of the left calcaneus. Suspected overlying wound is present. IMPRESSION: 1. Possible subtle erosion of the posterior aspect of the left calcaneus. Although not definitive, th is raises the possibility of osteomyelitis. 2. No acute fracture within the left ankle. 3. Extensive vascular calcification. Osteopenia. ACT 112: Negative or not required by law. Electronically signed by: Abram Pinon M.D. 11/06/2021 6:51 PM
--- NOTE | 2021-11-06 18:55 | XRay Report ---
XR foot LT min 3V routine CLINICAL HISTORY: sepsis, open wounds, ? osteomyelitis COMPARISON: None FINDINGS: Extensive vascular calcification is noted. There is no acute fracture within the left foot . There is an old, healed fracture of the left fifth proximal phalanx. Suspected wound overlying the posterior calcaneus is noted. There is subtle cortical irregularity of the posterior left calcaneus. There is equivocal erosion of the distal tuft of the distal phalanx of the left first toe. IMPRESSION: 1. Possible erosion of the posterior aspect of the left calcaneus and distal tuft of the distal phala nx of the left first toe. Osteomyelitis cannot be excluded. 2. No acute fracture 3. Extensive vascular calcification. Osteopenia. ACT 112: Negative or not required by law. Electronically signed by: Abram Pinon M.D. 11/06/2021 6:54 PM
[2021-11-06] MEDS ORDERED: ONDANSETRON INJ 2 MG/ML 2 ML VIAL IV PRN (19:36)
[2021-11-06] MEDS ORDERED: DEXTROSE 50% 50 ML SYRINGE IV PRN (19:36)
[2021-11-06] MEDS ORDERED: GLUCAGON FOR INJ 1 MG VIAL SQ PRN (19:36)
[2021-11-06] MEDS ORDERED: ACETAMINOPHEN 325 MG TAB PO PRN (19:36)
[2021-11-06] MEDS ORDERED: bisacodyL 10 MG SUPP PR PRN (19:36)
[2021-11-06] MEDS ORDERED: GLUCOSE 10 TAB/TUBE PO PRN (19:36)
[2021-11-06] MEDS ORDERED: GLUCOSE 40% GEL 15 GM TUBE PO PRN (19:36)
[2021-11-06] MEDS ORDERED: VANCOMYCIN CONSULT ACTIVE PRN (19:36)
[2021-11-06] MEDS ORDERED: POLYETHYLENE (MIRALAX) 17 GM PACK PO PRN (19:36)
[2021-11-06] MEDS ORDERED: SEVELAMER HCL 800 MG TABLET PO PRN (19:36)
[2021-11-06] MEDS ORDERED: VANCOMYCIN HCL 1,250 MG in SODIUM CHLORIDE 0.9% 500 ML IV SCH (19:36)
--- NOTE | 2021-11-06 20:23 | Pharmacy Report ---
Pharmacy PK ABX Note - Date of Service November 06, 2021 - Assessment and Plan Assessment 71 year old F with infected B/L foot wounds, possible osteomyelitis/sepsis. On chronic HD q M/W/F at [facility]. Recent antibiotic use includes: Bactrim, doxy, levoflox. Received full treatment of HD earlier today. Plan Vancomycin * Modified Loading dose: 1500mg ~20mg/kg) IV x 1 in ED * Random Vanc level with AM labs 11/07 to guide subsequent dosing Also adjusted per renal dose protocol: Zosyn 4.5g IV x1, then 4.5g IV q12 hrs for HD.
[2021-11-06] MEDS ORDERED: LANTUS PER UNIT CHARGE SQ SCH (21:00)
[2021-11-06] MEDS: ATORVASTATIN 40 MG TAB PO SCH (21:06)
[2021-11-06] MEDS: GABAPENTIN 100 MG CAP PO SCH (21:06)
[2021-11-06] MEDS: DOCUSATE SODIUM 100 MG CAP PO SCH (21:07)
[2021-11-06] MEDS: INSULIN ASPART PER UNIT SC SCH (21:07)
[2021-11-06] MEDS: SACCHAROMYCES BOULARDII 250 MG CAP PO SCH (21:08)
[2021-11-06] MEDS: PANTOprazole 40 MG TAB PO SCH (21:08)
[2021-11-07] MEDS: MENTHOL-ZINC OXIDE 360 APPLN/120 GM TUBE EXT SCH ×4 (00:48→23:56)
[2021-11-07] MEDS: PIPERACILLIN/TAZOBACTAM 4.5 GM in DEXTROSE 5% 100 ML IV SCH ×2 (03:55→15:30)
[2021-11-07] MEDS ORDERED: HYDROmorphone INJ 0.5 MG/0.5 ML SYR IV PRN ×2 (04:09→04:22)
[2021-11-07] MEDS: traMADol HCL 50 MG TABLET PO PRN (04:34)
[2021-11-07] MEDS: LEVOTHYROXINE SODIUM 88 MCG TABLET PO SCH (06:37)
[2021-11-07] MEDS: CARBOHYDRATES FOR HYPOGLYCEMIA PO PRN ×2 (07:05→07:26)
[2021-11-07 07:06] LABS: Basophils # (auto) 0.06 K/uL (0-0.2); Basophils % (auto) 0.6 %; Eosinophils # (auto) 0.26 K/uL (0-0.50); Eosinophils % (auto) 2.7 %; Hematocrit (blood only) 30.3 % (34.1-44.9); Hemoglobin 9.9 g/dl (12.0-16.0); Immature Granulocytes # (auto) 0.05 K/uL (0.00-0.02); Immature Granulocytes % (auto) 0.5 %; Lymphocytes # (auto) 2.76 K/uL (1.2-3.4); Lymphocytes % (auto) 29.2 %; Mean Corpuscular Hemoglobin 29.6 pg (25.0-34.0); Mean Corpuscular Hgb Conc 32.7 g/dL (32.0-36.0); Mean Corpuscular Volume 90.4 fL (80.0-100.0); Mean Platelet Volume 9.6 fL (9.4-12.3); Monocytes # (auto) 1.01 K/uL (0.24-0.82); Monocytes % (auto) 10.7 %; Neutrophils # (auto) 5.32 K/uL (1.4-6.5); Neutrophils % (auto) 56.3 %; Platelet Count 258 K/uL (130-400); RDW Coefficient of Variation 15.9 % (11.5-14.5); RDW Standard Deviation 52.3 fL (36.4-46.3); Red Blood Count 3.35 M/uL (3.93-5.22); White Blood Count 9.46 K/ul (4.8-10.8)
[2021-11-07 07:14] LABS: INR 1.2 (0.9-1.1); Prothrombin Time 12.6 Seconds (9.0-12.0)
[2021-11-07 07:18] LABS: BUN Creatinine Ratio 7.6 (10-20); Calcium 8.5 mg/dl (8.5-10.1); Creatinine Clr Calc Pharmacy 18.9 ml/min; Est GFR (African American) 18.3 ml/min; Est GFR (Non-African American) 15.8 ml/min; Magnesium 1.6 mg/dl (1.7-2.4); Potassium 3.6 mmol/L (3.5-5.1)
[2021-11-07 07:29] LABS: Thyroid Stimulating Hormone 4.592 uIu/ml (0.300-4.500)
[2021-11-07] MEDS ORDERED: SODIUM CHLORIDE 0.9% 1000ML 1,000 ML IV PRN (07:39)
[2021-11-07 08:05] LABS: T4 Free Thyroxine 1.26 ng/dl (0.61-1.60)
--- NOTE | 2021-11-07 08:24 | Magnetic Resonance Report ---
MR foot RT w/o con HISTORY: Open wounds on right foot. sepsis, ? Osteomyelitis TECHNIQUE: Multiplanar multisequence MRI of the right forefoot was performed without contrast accordi ng to standard departmental protocol. COMPARISON STUDY: Right foot radiograph 11/06/2021. FINDINGS: Mild motion artifact results in suboptimal evaluation of the right forefoot. Mild skin thic kening and subcutaneous trace edema within the forefoot. Patchy edema like marrow signal within the l ateral base of the fifth metatarsal. There is associated decreased T1 signal. Difficult evaluation of the overlying cortex due to the motion artifact. However, no definite evidence for bony destruction at this time. No loculated fluid collections to suggest an abscess. Partially visualized signal abnor mality at the calcaneus which is not well evaluated on this study. Possible skin ulceration within th e lateral aspect of the midfoot superficial to the base of the fifth metatarsal. IMPRESSION: 1. Abnormal signal intensity within the lateral base of the fifth metatarsal with overlying skin ulce ration. This is concerning for an early osteomyelitis. 2. No loculated fluid collections to suggest an abscess. 3. Abnormal signal intensity within the calcaneus which is only partially visualized on this study. T his could be related to the recent postoperative change. ACT 112: Negative or not required by law. Electronically signed by: Dallin Baxter M.D. 11/07/2021 8:23 AM
--- NOTE | 2021-11-07 08:49 | Magnetic Resonance Report ---
MR foot LT w/o con HISTORY: 71 years-old Female sepsis, ? osteomyelitis patient presents with soft tissue wound of the left foot with clinical concern for osteomyelitis. COMPARISON: Left foot radiographs of same day TECHNIQUE: Multiplanar multisequence MRI of the left foot was obtained without the use of IV contrast . FINDINGS: Study is very motion degraded which limits the diagnostic value of the study. There is diffuse atroph y of the intrinsic musculature of the foot. There is mild to moderate multifocal osteoarthritis. Midf oot alignment is anatomic. No acute fracture, dislocation, osseous erosion or significant marrow lobo a. Mild nonspecific edema throughout the musculature is likely secondary to chronic denervation. No d rainable fluid collection or significant subcutaneous edema. The tendons and ligaments are suboptimally evaluated. No gross tendon or ligamentous injury identifie d. IMPRESSION: 1. Motion degraded exam. 2. No acute fracture, marrow edema or MRI evidence of acute osteomyelitis. ACT 112: Negative or not required by law. The above report was generated using voice recognition software. It may contain grammatical, syntax o r spelling errors. Electronically signed by: Dinesh Stacy M.D. 11/07/2021 8:46 AM
[2021-11-07] MEDS: INSULIN ASPART PER UNIT SC SCH ×4 (09:00→20:45)
[2021-11-07] MEDS ORDERED: [UNRECOGNIZED DRUG - OTHER] TOP SCH (09:00)
[2021-11-07] MEDS: SEVELAMER HCL 800 MG TABLET PO SCH ×3 (09:11→17:28)
[2021-11-07] MEDS: PANTOprazole 40 MG TAB PO SCH ×2 (09:11→20:42)
[2021-11-07] MEDS: DOCUSATE SODIUM 100 MG CAP PO SCH ×2 (09:11→20:43)
[2021-11-07] MEDS: NEPHROCAPS PO SCH (09:12)
[2021-11-07] MEDS: DULoxetine HCL 30 MG CAP PO SCH (09:12)
[2021-11-07] MEDS: PROSOURCE NO CARB 30 ML/PKT PO SCH (09:12)
[2021-11-07] MEDS: SACCHAROMYCES BOULARDII 250 MG CAP PO SCH ×2 (09:13→20:42)
--- NOTE | 2021-11-07 11:49 | Nephrology Consultation ---
Date of Consultation November 07, 2021 Assessment & Plan (1) ESRD (end stage renal disease) on dialysis: ESRD on dialysis Thursday and Thursday -Last dialyzed on Thursday for treatment -Electrolytes safe, no signs of fluid overload. -We will dialyze again tomorrow for 3 hours due to 2.5 L UF -Please continue her on outpatient medications. (2) Diabetic foot ulcer: - Chronic foot ulcers, -Renally dose antibiotics, timing it with the dialysis treatment. History of Present Illness Reason for Consultation: ESRD on HD Thursday, admitted with worsening leg ulcers Attending Physician: Christian Gaona MD History of Present Illness 71yo female - medically complex with ESRD on HD M/W/F (last dialyzed on Thursday full 3-hour treatment with no complication, [facility]), DM with neuropathy, chronic systolic CHF, , severe b/l LE PAD, CAD - Pt admitted with worsening bilateral foot ,redness, drainage , more from the right side Alert cooperative on exam, no shortness of breath, ulcers on the right foot, with erythema and discharge. Does not appear to be in pain. Allergies Allergy/AdvReac Type Severity Reaction Status Date / Time cyclobenzaprine Allergy Unknown ON MED LIST Verified 11/06/21 17:08 [From Flexeri] Home Medications Medication Instructions Recorded Confirmed Type Aquacel Ac Dressing 1 applic TOPICAL DAILY 11/06/21 11/06/21 History Saccharomyces boulardii 250 mg 0 mg PO BID 11/06/21 11/06/21 History capsule (Florastor) acetaminophen 325 mg tablet 650 mg PO Q6 PRN 11/06/21 11/06/21 History (Tylenol) atorvastatin 80 mg tablet 80 mg PO QPM 11/06/21 11/06/21 History bisacodyl 10 mg rectal suppository 10 mg TN DIRECTED PRN 11/06/21 11/06/21 History (Dulcolax (bisacodyl)) docusate sodium 100 mg capsule 100 mg PO BID 11/06/21 11/06/21 History doxycycline hyclate 100 mg tablet 100 mg PO BID 11/06/21 11/06/21 History duloxetine 30 mg capsule,delayed 30 mg PO DAILY 11/06/21 11/06/21 History release gabapentin 100 mg capsule 200 mg PO QPM 11/06/21 11/06/21 History insulin glargine 100 unit/mL 30 unit SUBCUT HS 11/06/21 11/06/21 History subcutaneous solution (Lantus U-100 Insulin) insulin lispro 100 unit/mL See Rx Instructions .ROUTE .COMPLEX 11/06/21 11/06/21 History subcutaneous solution (Humalog U-100 Insulin) levofloxacin 500 mg tablet 500 mg PO .Q2DAYS @HS 11/06/21 11/06/21 History levothyroxine 88 mcg tablet 88 mcg PO DAILY 11/06/21 11/06/21 History menthol 0.44 %-zinc oxide 20.6 % 1 applic TOPICAL QS 11/06/21 11/06/21 History topical ointment (Calmoseptine) midodrine 10 mg tablet 10 mg PO MOWEFR 11/06/21 11/06/21 History pantoprazole 40 mg tablet,delayed 40 mg PO BID 11/06/21 11/06/21 History release protein supplement 1 ea PO DAILY 11/06/21 11/06/21 History sevelamer carbonate 800 mg tablet 800 mg PO .Q24HRS PRN 11/06/21 11/06/21 History sevelamer carbonate 800 mg tablet 800 mg PO TIDM 11/06/21 11/06/21 History vitamin B complex and vitamin C 1 cap PO DAILY 11/06/21 11/06/21 History no.20-folic acid 1 mg capsule Patient History Medical History (Updated 11/07/21 @ 08:11 by Lalit Quiroz) Anemia in chronic renal disease Aortic stenosis Chronic respiratory failure with hypoxia Coronary artery disease Depression Diabetic peripheral neuropathy Encounter for removal of vascular catheter 08/2021 - Dr Inocencio Pablo (HD catheter) ESRD (end stage renal disease) on dialysis History of CVA (cerebrovascular accident) History of gastrointestinal bleeding Hypertension Hypothyroidism Ischemic cardiomyopathy Obesity Obstructive sleep apnea PAD (peripheral artery disease) Surgical History (Updated 11/07/21 @ 08:11 by Lalit Quiroz) H/O foot surgery 08/2021 - right calcaneal resection 2nd to osteomyelitis - Dr Dick Naqvi Family History (Updated 11/07/21 @ 08:11 by Lalit Quiroz) Other No pertinent family history Social History Smoking Status: Never smoker Second Hand Exposure: No; Hx Alcohol Use: No Hx Substance Use: No Preferred Language: Palestinian Communication Ability: Effective 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: No Beliefs That Will Affect Care: None Current Living Situation: [facility] Current Living Situation Comment: [facility] Feels Safe at Home: Yes Safety Concerns: Feels Safe At This Time Assistive Devices: Wheelchair Review of Systems Review of Systems: Constitutional-alert cooperative, no complaints of pain No shortness of breath Trace pedal edema Physical Exam Physical Exam: General: awake, alert, no apparent distress Head: Normocephalic, atraumatic ENT: PERRL, EOMI, mucous membranes moist Chest: Clear to auscultation, on room air, no adventitious breath sounds Cardiac: Regular rate and rhythm, no murmur, no JVD Abdominal: soft, nontender to palpation, no rebound, guarding or tenderness Extremities: Ulcer over the left heel appears to be necrotic with necrosis over the right lateral and right medial foot with surrounding erythema and discharge Neuro: AAO x 3 Results & Data ([facility]) Vital Signs (Past 12 Hours) Vital Signs Temp Pulse Resp BP Pulse Ox 11/07/21 06:47 36.9 C 104 H 18 123/76 92 11/07/21 03:01 36.8 C 96 H 18 114/71 92 11/07/21 00:54 36.7 C 97 H 18 115/74 94 Laboratory Results 11/07/21 06:33 11/07/21 06:33 (1) Diabetic foot ulcer Diabetes mellitus type: other specified (including TU) Diabetic foot ulcer location: unspecified part of foot Laterality: unspecified laterality Non- pressure ulcer stage: unspecified non-pressure ulcer stage Qualified Code(s): E13.621 - Other specified diabetes mellitus with foot ulcer; L97.509 - Non- pressure chronic ulcer of other part of unspecified foot with unspecified severity
[2021-11-07] MEDS ORDERED: VANCOMYCIN HCL 500 MG in DEXTROSE 5% 100 ML IV ONE (12:00)
[2021-11-07] MEDS ORDERED: VANCOMYCIN HCL 500 MG in 0.9 % SODIUM CHLORIDE 100 ML IV ONE (12:00)
--- NOTE | 2021-11-07 12:44 | Hospitalist Progress Note ---
Date of Service November 07, 2021 Assessment & Plan (1) Sepsis: Plan: - Source most likely diabetic foot wound/osteomyelitis in one or both feet/ankle. HD catheter does not appear infected. Wound cultures obtained on 10/[address] [facility], currently growing MRSA and Proteus. Had been started on Bactrim on 11/01, doxycycline on 11/02, and Levaquin on 11/04. - MRI right foot on 11/06 with concern for early osteomyelitis in the lateral base of the 5th metatarsal. - MRI left foot on 11/06 without signs for osteomyelitis - Started on vancomycin and Rocephin in ED - Switched to vanc/Zosyn - Blood culture sent, urine culture from yesterday at [facility] pending. UA collected here, with reflex for culture. - Consulted vascular surgery and orthopedics to evaluate and discuss need for further intervention. - Patient is adamantly opposed to amputation. Will see what surgical options may be available. (2) PAD (peripheral artery disease): Plan: Severe PAD based on clinical exam and bilateral lower extremity arterial Dopplers showing advanced peripheral vascular disease with multifocal bilateral vascular occlusions. - Dr. Pablo consulted as above. - Per previous notes, patient strongly opposed to amputation. (3) Ischemic cardiomyopathy: Plan: Echo in August with EF 30-35%, septal akinesis, inferobasal akinesis, moderate global hypokinesis of left ventricle. Elevated RVSP 40-50 mmHg. - Presently appears euvolemic; likely management with HD. - Continue home statin; not on beta-noel or ACEi possibly due to low BP given her midodrine on HD days (4) ESRD (end stage renal disease) on dialysis: Plan: Dialysis at [facility] , completed full treatment today without complications. - Consulted [facility] nephrology (5) Metabolic encephalopathy: Plan: 2/2 to sepsis. Had difficultly recalling events, mixing up details. A+O x3 at baseline. - Appears to be at baseline by 11/07 (6) Aortic stenosis: Plan: Moderate to severe on echo in August. - Maintain adequate volume status. - Should follow up with cardiology outpt for this. (7) Diabetic peripheral neuropathy: Plan: A1c was 9.4% in October. - Continue Lantus 20 u HS with SSI. (Lowered from 30 units HS for hypoglycemia the morning of 11/07) - Diabetic diet. - Continue gabapentin for neuropathy. (8) Anemia in chronic renal disease: Plan: Iron studies in August showed normal serum iron, B12, and folate. Hgb 11.5, stable, without evidence of acute bleed. - Follow on AM CBC. (9) Coronary artery disease: Plan: Chronic, stable. Unclear history, did have wall motion abnormalities on echo in August 2021. - No acute needs. - Continue statin, no longer on beta-noel or ACEi/ARB due to hypotension. (10) Depression: Plan: - Continue Cymbalta 30 mg daily. (11) Hypothyroidism: Plan: TSH was 4.6 this admission. - Continue levothyroxine 88 mcg daily. (12) Chronic respiratory failure with hypoxia: Plan: Reportedly uses 2L NC at baseline, however has been on RA in ED with SpO2 > 95%. - Monitor (13) DVT prophylaxis: Plan: SCDs - Hold heparin until seen by ortho Admission and Anticipated Discharge Date Admission Date: November 06, 2021 Subjective Feels her legs are doing ok today. Drying out somewhat. Reports no fevers/chills, chest pain, shortness of breath, abdominal pain, nausea, or vomiting. Physical Exam Constitutional: WD/WN, vitals as above Eyes: EOM intact bilaterally; no conjunctival abnormality ENMT: external ear and nose normal, oropharynx normal Neck: trachea midline, no thyromegaly normal visual inspection Respiratory: normal respiratory effort, lungs clear to auscultation no respiratory distress Cardiovascular: RRR, no murmur, no edema Gastrointestinal (Abdomen): Inspection/Auscultation: abdomen normal to inspection; abdomen not distended Musculoskeletal: no cyanosis or clubbing, extremities motor strength 5/5 Skin: + ulcer (On both legs. No purulence noted.) Neurologic: moves all extremities and awake Psychiatric: Orientation: alert, oriented to person and cooperative Results & Data Results & Data ([facility]) Vital Signs (Past 12 Hours) Vital Signs Temp Pulse Resp BP Pulse Ox 11/07/21 06:47 36.9 C 104 H 18 123/76 92 11/07/21 03:01 36.8 C 96 H 18 114/71 92 11/07/21 00:54 36.7 C 97 H 18 115/74 94 PG Care Time/CCT Total # of Minutes Spent Total Time Spent with Patient: Total time spent is greater than 50% in coordination of care (as documented) at patient's floor/unit and/or counseling patient: Coding Level of Care Code 63766 Subseq Hosp Care Lvl 3 Diagnoses Sepsis A41.9 Sepsis acute organ dysfunction status: unspecified Sepsis type: sepsis due to unspecified organism Metabolic encephalopathy G93.41 PAD (peripheral artery disease) I73.9 Aortic stenosis I35.0 Ischemic cardiomyopathy I25.5 ESRD (end stage renal disease) on dialysis N18.6; Z99.2 Diabetic peripheral neuropathy E11.42 Anemia in chronic renal disease N18.9; D63.1 Coronary artery disease I25.10 Depression F32.A Hypothyroidism E03.9 Chronic respiratory failure with hypoxia J96.11 DVT prophylaxis Z29.9 (1) Sepsis Sepsis acute organ dysfunction status: unspecified Sepsis type: sepsis due to unspecified organism Qualified Code(s): A41.9 - Sepsis, unspecified organism
--- NOTE | 2021-11-07 13:42 | Pharmacy Report ---
Pharmacy PK ABX Note - Date of Service November 07, 2021 - Assessment and Plan Assessment 71 year old F receiving IV Vancomycin and Zosyn for possible osteomyelitis of bilateral foot wounds. * PMHx significant for ESRD on HD MWF, T2DM. From [facility]. Recent hospitalization in August 2021 for similar issue. Recent abx include: doxycycline, bactrim, and levofloxacin. * R foot MRI report states: "concerning for an early osteomyelitis". L foot MRI reports states: "No MRI evidence for acute osteomyelitis". * 10/31/21 foot culture (unsure which foot???) from [facility] grew MRSA (Vanc TSERING = 2) and Proteus mirabilis. Blood cultures pending. * Patient is afebrile and without leukocytosis. ESR/CRP are elevated. * No HD per nephrology for patient today. Next planned session will be tomorrow (11/08/21). Spoke with patient today who does report still producing a decent amount of urine per day. Plan Vancomycin * Received 1500 mg IV x 1 in the ED yesterday (~17 mg/kg). * Random level obtained 11/07/21 resulted as 18.6 mcg/mL. This is predicted to achieve target AUC/TSERING of 400-600 mg/L.hr. * Given patient does produce urine and has MRSA DFI/OM, will give a one-time IV dose of 500 mg Vancomycin today at noon. * Repeat random level ordered for: 11/08/21 prior to the next HD session. Zosyn * Continue Zosyn 4.5 g IV every 12 hours for HD
--- NOTE | 2021-11-07 13:53 | Orthopedic Consultation ---
Date of Consultation November 07, 2021 Assessment & Plan (1) Diabetic foot ulcer: With multiple ulcers over the right and left foot. Foot x-ray showing postoperative findings in the right calcaneus with possible interval bone loss with cortical irregularity could be secondary to surgery. Left foot x-ray showing possible erosion of the posterior aspect of the left calcaneus and distal tuft of the distal phalanx of the left first toe with osteomyelitis not being excluded. Left foot MRI showing no acute fracture, marrow edema, or MRI evidence of acute osteomyelitis. Right foot MRI showing abnormal signal within the lateral base of the fifth metatarsal with overlying skin ulceration concer em for early osteomyelitis. No abscess is noted on the right or left foot. Abnormal signal noted in the calcaneus of the right foot which could be related to postoperative change. Most recent duplex scan of the lower extremities on 08/07/2021 showing advanced peripheral vascular disease with multifocal bilateral vascular occlusions. I will discussed the case with Dr. Naqvi and have him review the x-rays and MRIs. It may require superficial debridement. Patient has been adamant about having any type of BKA surgery, if needed. We will consult wound care nursing team for now. Possible need for debridement this weekend per Dr. Naqvi. History of Present Illness Reason for Consultation: Bilateral foot wounds Attending Physician: Christian Gaona MD History of Present Illness Patient is a 71-year-old female presenting from [facility] with past medical history significant for ESRD on dialysis with anemia of CKD, CAD, ischemic cardiomyopathy, aortic stenosis, severe PAD, hypertension, diabetes with neuropathy, AUDI, hypothyroidism who presents with worsening bilateral feet wounds and failing outpatient antibiotic therapy for this. Patient's previous admission was in August and patient underwent a right partial calcanectomy with irrigation and debridement of diabetic neuropathic ulcer Dr. Naqvi. She was discharged to [facility] snf facility. Plans were for follow-up with Dr. Naqvi a week to 10 days post discharge. Patient was started on IV antibiotic therapy and was continued on this at [facility]. She was also undergoing wound care as well. At one point the wounds were getting better however with end of the last week prior to admission it was noted that her wounds on her feet were getting worse. Cultures were collected at [facility] and were growing out MRSA and Proteus. She had been on Bactrim, doxycycline, and Levaquin prior to admission. She had developed some confusion and as well as fever. They continued to try and care for her feet however she became tachycardic and hypertensive as well as occasionally febrile and she was brought to the emergency room. She was admitted under the sepsis protocol and we have been asked to see her for her foot wounds. Currently she is sitting up in bed awake and alert. She states she is feeling much better today than she did when she came in. Is not having any pain in her feet but she has a history of neuropathy. She feels that her wounds look a little bit better today. Allergies Allergy/AdvReac Type Severity Reaction Status Date / Time cyclobenzaprine Allergy Unknown ON MED LIST Verified 11/06/21 17:08 [From [facility]] Home Medications Medication Instructions Recorded Confirmed Type Aquacel Ac Dressing 1 applic TOPICAL DAILY 11/06/21 11/06/21 History Saccharomyces boulardii 250 mg 0 mg PO BID 11/06/21 11/06/21 History capsule (Florastor) acetaminophen 325 mg tablet 650 mg PO Q6 PRN 11/06/21 11/06/21 History (Tylenol) atorvastatin 80 mg tablet 80 mg PO QPM 11/06/21 11/06/21 History bisacodyl 10 mg rectal suppository 10 mg AR DIRECTED PRN 11/06/21 11/06/21 History (Dulcolax (bisacodyl)) docusate sodium 100 mg capsule 100 mg PO BID 11/06/21 11/06/21 History doxycycline hyclate 100 mg tablet 100 mg PO BID 11/06/21 11/06/21 History duloxetine 30 mg capsule,delayed 30 mg PO DAILY 11/06/21 11/06/21 History release gabapentin 100 mg capsule 200 mg PO QPM 11/06/21 11/06/21 History insulin glargine 100 unit/mL 30 unit SUBCUT HS 11/06/21 11/06/21 History subcutaneous solution (Lantus U-100 Insulin) insulin lispro 100 unit/mL See Rx Instructions .ROUTE .COMPLEX 11/06/21 11/06/21 History subcutaneous solution (Humalog U-100 Insulin) levofloxacin 500 mg tablet 500 mg PO .Q2DAYS @HS 11/06/21 11/06/21 History levothyroxine 88 mcg tablet 88 mcg PO DAILY 11/06/21 11/06/21 History menthol 0.44 %-zinc oxide 20.6 % 1 applic TOPICAL QS 11/06/21 11/06/21 History topical ointment (Calmoseptine) midodrine 10 mg tablet 10 mg PO MOWEFR 11/06/21 11/06/21 History pantoprazole 40 mg tablet,delayed 40 mg PO BID 11/06/21 11/06/21 History release protein supplement 1 ea PO DAILY 11/06/21 11/06/21 History sevelamer carbonate 800 mg tablet 800 mg PO .Q24HRS PRN 11/06/21 11/06/21 History sevelamer carbonate 800 mg tablet 800 mg PO TIDM 11/06/21 11/06/21 History vitamin B complex and vitamin C 1 cap PO DAILY 11/06/21 11/06/21 History no.20-folic acid 1 mg capsule Patient History Medical History Anemia in chronic renal disease Aortic stenosis Chronic respiratory failure with hypoxia Coronary artery disease Depression Diabetic peripheral neuropathy Encounter for removal of vascular catheter 08/2021 - Dr Inocencio Pablo (HD catheter) ESRD (end stage renal disease) on dialysis History of CVA (cerebrovascular accident) History of gastrointestinal bleeding Hypertension Hypothyroidism Ischemic cardiomyopathy Obesity Obstructive sleep apnea PAD (peripheral artery disease) Surgical History H/O foot surgery 08/2021 - right calcaneal resection 2nd to osteomyelitis - Dr Dick Naqvi Family History Other No pertinent family history Social History Smoking Status: Never smoker Second Hand Exposure: No; Hx Alcohol Use: No Hx Substance Use: No Preferred Language: Divehi Communication Ability: Effective Placement Coordinator Required: No Beliefs That Will Affect Care: None Current Living Situation: Care Home Current Living Situation Comment: Center Care Feels Safe at Home: Yes Safety Concerns: Feels Safe At This Time Assistive Devices: Wheelchair Physical Exam Physical Exam: On examination, the patient is a 71-year-old white female who appears her stated age. She is pleasant and cooperative. No acute distress. Oriented to person and place. On examination of her bilateral lower extremities, the right foot has moderate dependent rubor along with erythema over the dorsum of the foot there is mode rate swelling over the dorsum of the foot. He has a noted ulceration on the dorsal aspect of her great toe at the DIP area. Going proximally she has a larger ulcerative area over the dorsum of her foot at the first metacarpal region that has a small skin bridge and then goes into a larger ulceration close to the ankle. There is blackened eschar over the central portion with a few edges that have a darkened erythema this wound is in an hourglass type shape. She also has a small area over the lateral aspect of her great toe at the MTP joint. Laterally on the right foot she has a large ulcerative area with a blackened eschar in the central portion with some erythematous edges and 1 small area of tannish tissue. Most of the eschars on this foot are very soft. The lateral eschar wound appears to be peeling off from the superior aspect. There is no foul odor at this time. There is no gross purulence that appears to be draining at this time. Left foot has a large ulcerative area with eschar on the left heel with erythema surrounding. No gross purulence or drainage noted. Eschar is soft on palpation. No foul odor. The right foot has a plethora of dried skin over the dorsal surface. I cannot appreciate any dorsalis pedis pulse at this time. Results & Data ([facility]) Vital Signs (Past 12 Hours) Vital Signs Temp Pulse Pulse Pulse Resp BP Pulse Ox 11/07/21 12:00 36.8 C 102 H 18 144/85 H 96 11/07/21 06:47 36.9 C 104 H 18 123/76 92 11/07/21 06:19 103 H 11/07/21 03:01 36.8 C 96 H 18 114/71 92 Laboratory Results Laboratory Results WBC 9.46 K/ul (4.8-10.8) 11/07/21 06:33 RBC 3.35 M/uL (3.93-5.22) L 11/07/21 06:33 Hgb 9.9 g/dl (12.0-16.0) L 11/07/21 06:33 Hct 30.3 % (34.1-44.9) L 11/07/21 06:33 MCV 90.4 fL (80.0-100.0) 11/07/21 06:33 MCH 29.6 pg (25.0-34.0) 11/07/21 06:33 MCHC 32.7 g/dL (32.0-36.0) 11/07/21 06:33 RDW Std Deviation 52.3 fL (36.4-46.3) H 11/07/21 06:33 RDW Coeff of Juno 15.9 % (11.5-14.5) H 11/07/21 06:33 Plt Count 258 K/uL (130-400) 11/07/21 06:33 MPV 9.6 fL (9.4-12.3) 11/07/21 06:33 Immature Gran % (Auto) 0.5 % 11/07/21 06:33 Neut % (Auto) 56.3 % 11/07/21 06:33 Lymph % (Auto) 29.2 % 11/07/21 06:33 [place] % (Auto) 10.7 % 11/07/21 06:33 Eos % (Auto) 2.7 % 11/07/21 06:33 Baso % (Auto) 0.6 % 11/07/21 06:33 Neut # (Auto) 5.32 K/uL (1.4-6.5) 11/07/21 06:33 Lymph # (Auto) 2.76 K/uL (1.2-3.4) 11/07/21 06:33 [place] # (Auto) 1.01 K/uL (0.24-0.82) H 11/07/21 06:33 Eos # (Auto) 0.26 K/uL (0-0.50) 11/07/21 06:33 Baso # (Auto) 0.06 K/uL (0-0.2) 11/07/21 06:33 Immature Gran # (Auto) 0.05 K/uL (0.00-0.02) H 11/07/21 06:33 ESR 106 mm/hr (0-30) H 11/06/21 12:58 PT 12.6 Seconds (9.0-12.0) H 11/07/21 06:33 INR 1.2 (0.9-1.1) H 11/07/21 06:33 APTT 30.2 Seconds (21.0-31.0) 11/06/21 12:42 PTT Ratio 1.1 11/06/21 12:42 Sodium 135 mmol/L (136-145) L 11/07/21 06:33 Potassium 3.6 mmol/L (3.5-5.1) 11/07/21 06:33 Chloride 98 mmol/L (98-107) 11/07/21 06:33 Carbon Dioxide 30 mmol/L (21-32) 11/07/21 06:33 Anion Gap 7 (3-11) 11/07/21 06:33 BUN 22 mg/dl (6-23) 11/07/21 06:33 Creatinine 2.89 mg/dl (0.6-1.2) H D 11/07/21 06:33 Est Cr Clr Drug Dosing 18.9 ml/min 11/07/21 06:33 Est GFR ( Amer) 18.3 ml/min 11/07/21 06:33 Est GFR (Non-Af Amer) 15.8 ml/min 11/07/21 06:33 BUN/Creatinine Ratio 7.6 (10-20) L 11/07/21 06:33 Glucose 71 mg/dl (70-99(Fasting)) 11/07/21 06:33 POC Glucose 174 mg/dl (70-99) H 11/07/21 11:35 Lactate 1.7 mmol/L (0.4-2.0) 11/06/21 12:42 Calcium 8.5 mg/dl (8.5-10.1) 11/07/21 06:33 Magnesium 1.6 mg/dl (1.7-2.4) L 11/07/21 06:33 Total Bilirubin 0.6 mg/dl (0.2-1.0) 11/06/21 12:42 AST 29 U/L (13-39) 11/06/21 12:42 ALT 12 U/L (7-52) 11/06/21 12:42 Alkaline Phosphatase 113 U/L (34-104) H 11/06/21 12:42 C-Reactive Protein 5.70 mg/dl (0-0.5) H 11/06/21 12:58 Total Protein 7.9 gm/dl (6.0-8.3) 11/06/21 12:42 Albumin 3.1 gm/dl (3.4-5.0) L 11/06/21 12:42 Globulin 4.8 gm/dl (2.5-4.0) H 11/06/21 12:42 Albumin/Globulin Ratio 0.6 (0.9-2) L 11/06/21 12:42 Procalcitonin 0.25 ng/ml (0-0.5) 11/06/21 12:42 TSH 4.592 uIu/ml (0.300-4.500) H 11/07/21 06:33 Free T4 1.26 ng/dl (0.61-1.60) 11/07/21 06:33 Random Vancomycin 18.6 mcg/ml (10-20) 11/07/21 06:33 SARS-CoV-2, RNA, NAAT NEGATIVE (NEGATIVE) 11/06/21 12:42 Impressions Chest X-Ray 11/06/21 12:36 XR chest 1V portable HISTORY: 71 years-old Female SEPSIS acute sepsis COMPARISON: Chest CT 08/04/2021 TECHNIQUE: AP view of the chest FINDINGS: The cardiac silhouette is enlarged. Right IJ dual-lumen hemodialysis catheter distal tip projects over the inferior SVC/superior cavoatrial junction. No pneumothorax or large pleural effusion. Interstitial coarsening with linear mid lung predominant opacities are redemonstrated. Degenerative changes of the shoulders and spine. IMPRESSION: 1. Cardiomegaly without acute process. 2. Interstitial coarsening with linear mid lung predominant opacities redemonstr ated suggestive of atelectasis versus scarring. ACT 112: Negative or not required by law. The above report was generated using voice recognition software. It may contain grammatical, syntax or spelling errors. Electronically signed by: Dinesh Stacy M.D. 11/06/2021 12:56 PM Ankle X-Ray 11/06/21 17:31 XR ankle LT 2V CLINICAL HISTORY: sepsis, ? osteomyelitis COMPARISON: None FINDINGS: Alignment of the left ankle is anatomic. There is no acute fracture. Osteopenia is noted. This extensive vascular calcification. Plantar calcaneal spurring is noted. There is possible subtle erosion of the posterior aspect of the left calcaneus. Suspected overlying wound is present. IMPRESSION: 1. Possible subtle erosion of the posterior aspect of the left calcaneus. Although not definitive, this raises the possibility of osteomyelitis. 2. No acute fracture within the left ankle. 3. Extensive vascular calcification. Osteopenia. ACT 112: Negative or not required by law. Electronically signed by: Abram Pinon M.D. 11/06/2021 6:51 PM Foot X-Ray 11/06/21 17:31 XR foot LT min 3V routine CLINICAL HISTORY: sepsis, open wounds, ? osteomyelitis COMPARISON: None FINDINGS: Extensive vascular calcification is noted. There is no acute fracture within the left foot. There is an old, healed fracture of the left fifth proximal phalanx. Suspected wound overlying the posterior calcaneus is noted. There is subtle cortical irregularity of the posterior left calcaneus. There is equivocal erosion of the distal tuft of the distal phalanx of the left first toe. IMPRESSION: 1. Possible erosion of the posterior aspect of the left calcaneus and distal tuft of the distal phalanx of the left first toe. Osteomyelitis cannot be excluded. 2. No acute fracture 3. Extensive vascular calcification. Osteopenia. ACT 112: Negative or not required by law. Electronically signed by: Abram Pinon M.D. 11/06/2021 6:54 PM Foot MRI 11/06/21 19:05 MR foot LT w/o con HISTORY: 71 years-old Female sepsis, ? osteomyelitis patient presents with soft tissue wound of the left foot with clinical concern for osteomyelitis. COMPARISON: Left foot radiographs of same day TECHNIQUE: Multiplanar multisequence MRI of the left foot was obtained without the use of IV contrast. FINDINGS: Study is very motion degraded which limits the diagnostic value of the study. There is diffuse atrophy of the intrinsic musculature of the foot. There is mild to moderate multifocal osteoarthritis. Midfoot alignment is anatomic. No acute fracture, dislocation, osseous erosion or significant marrow edema. Mild nonspecific edema throughout the musculature is likely secondary to chronic denervation. No drainable fluid collection or significant subcutaneous edema. The tendons and ligaments are suboptimally evaluated. No gross tendon or ligamentous injury identified. IMPRESSION: 1. Motion degraded exam. 2. No acute fracture, marrow edema or MRI evidence of acute osteomyelitis. ACT 112: Negative or not required by law. The above report was generated using voice recognition software. It may contain grammatical, syntax or spelling errors. MR foot RT w/o con HISTORY: Open wounds on right foot. sepsis, ? Osteomyelitis TECHNIQUE: Multiplanar multisequence MRI of the right forefoot was performed without contrast according to standard departmental protocol. COMPARISON STUDY: Right foot radiograph 11/06/2021. FINDINGS: Mild motion artifact results in suboptimal evaluation of the right forefoot. Mild skin thickening and subcutaneous trace edema within the forefoot. Patchy edema like marrow signal within the lateral base of the fifth metatarsal. There is associated decreased T1 signal. Difficult evaluation of the overlying cortex due to the motion artifact. However, no definite evidence for bony destruction at this time. No loculated fluid collections to suggest an abscess. Partially visualized signal abnormality at the calcaneus which is not well evaluated on this study. Possible skin ulceration within the lateral aspect of the midfoot superficial to the base of the fifth metatarsal. IMPRESSION: 1. Abnormal signal intensity within the lateral base of the fifth metatarsal with overlying skin ulceration. This is concerning for an early osteomyelitis. 2. No loculated fluid collections to suggest an abscess. 3. Abnormal signal intensity within the calcaneus which is only partially visualized on this study. This could be related to the recent postoperative change. ACT 112: Negative or not required by law. (1) Diabetic foot ulcer Diabetes mellitus type: other specified (including TU) Diabetic foot ulcer location: unspecified part of foot Laterality: unspecified laterality Non- pressure ulcer stage: unspecified non-pressure ulcer stage Qualified Code(s): E13.621 - Other specified diabetes mellitus with foot ulcer; L97.509 - Non- pressure chronic ulcer of other part of unspecified foot with unspecified severity
--- NOTE | 2021-11-07 15:19 | Consultation ---
Date of Consultation November 07, 2021 Assessment & Plan (1) PAD (peripheral artery disease): Pt with PAD on US from 08/23, but minimal options for revascularization. Will discuss with Dr Pablo next week to determine best approach. Continue conservative measures in meaintime. She has necrotic ulcerations/wounds to BLE, some wet. Wound cultures growing proteus and MRSA. Will defer surgical intervention to orthopedics. History of Present Illness Reason for Consultation: PAD Attending Physician: Christian Gaona MD History of Present Illness 71 yo f with multiple medical problems, admitted with sepsis, seen in consultation today for PAD. Pt known to Dr Pablo for permcath insertion for HD about 3 months ago, as well as PAD noted on US during that admission. Pt underwent partial calcanectomy by Dr Naqvi during that admission d/t severe infection. Pt had been seen in Dr Pablo's office to reeval whether re vascularization was necessary after discharge. Her wounds were improving, and no vascular intervention recommended. Pt with minimal options for revasc. She does not ambulate. She usually uses a agapito lift for transfer. Pt admits increased swelling, erythema, black tissue to BL feet wounds. Does not wish to consider amputation at this time. Denies [place], chest pain, SOB, abd pain, N/V, other complaints. Allergies Allergy/AdvReac Type Severity Reaction Status Date / Time cyclobenzaprine Allergy Unknown ON MED LIST Verified 11/06/21 17:08 [From [facility]] Home Medications Medication Instructions Recorded Confirmed Type Aquacel Ac Dressing 1 applic TOPICAL DAILY 11/06/21 11/06/21 History Saccharomyces boulardii 250 mg 0 mg PO BID 11/06/21 11/06/21 History capsule (Florastor) acetaminophen 325 mg tablet 650 mg PO Q6 PRN 11/06/21 11/06/21 History (Tylenol) atorvastatin 80 mg tablet 80 mg PO QPM 11/06/21 11/06/21 History bisacodyl 10 mg rectal suppository [address] DIRECTED PRN 11/06/21 11/06/21 History (Dulcolax (bisacodyl)) docusate sodium 100 mg capsule 100 mg PO BID 11/06/21 11/06/21 History doxycycline hyclate 100 mg tablet 100 mg PO BID 11/06/21 11/06/21 History duloxetine 30 mg capsule,delayed 30 mg PO DAILY 11/06/21 11/06/21 History release gabapentin 100 mg capsule 200 mg PO QPM 11/06/21 11/06/21 History insulin glargine 100 unit/mL 30 unit SUBCUT HS 11/06/21 11/06/21 History subcutaneous solution (Lantus U-100 Insulin) insulin lispro 100 unit/mL See Rx Instructions .ROUTE .COMPLEX 11/06/21 11/06/21 History subcutaneous solution (Humalog U-100 Insulin) levofloxacin 500 mg tablet 500 mg PO .Q2DAYS @HS 11/06/21 11/06/21 History levothyroxine 88 mcg tablet 88 mcg PO DAILY 11/06/21 11/06/21 History menthol 0.44 %-zinc oxide 20.6 % 1 applic TOPICAL QS 11/06/21 11/06/21 History topical ointment (Calmoseptine) midodrine 10 mg tablet 10 mg PO MOWEFR 11/06/21 11/06/21 History pantoprazole 40 mg tablet,delayed 40 mg PO BID 11/06/21 11/06/21 History release protein supplement 1 ea PO DAILY 11/06/21 11/06/21 History sevelamer carbonate 800 mg tablet 800 mg PO .Q24HRS PRN 11/06/21 11/06/21 History sevelamer carbonate 800 mg tablet 800 mg PO TIDM 11/06/21 11/06/21 History vitamin B complex and vitamin C 1 cap PO DAILY 11/06/21 11/06/21 History no.20-folic acid 1 mg capsule Patient History Medical History Anemia in chronic renal disease Aortic stenosis Chronic respiratory failure with hypoxia Coronary artery disease Depression Diabetic peripheral neuropathy Encounter for removal of vascular catheter 08/2021 - Dr Inocencio Pablo (HD catheter) ESRD (end stage renal disease) on dialysis History of CVA (cerebrovascular accident) History of gastrointestinal bleeding Hypertension Hypothyroidism Ischemic cardiomyopathy Obesity Obstructive sleep apnea PAD (peripheral artery disease) Surgical History H/O foot surgery 08/2021 - right calcaneal resection 2nd to osteomyelitis - Dr Dick Naqvi Family History Other No pertinent family history Social History Smoking Status: Never smoker Second Hand Exposure: No; Hx Alcohol Use: No Hx Substance Use: No Preferred Language: Welsh Communication Ability: Effective Optical Glass Etcher Required: No Beliefs That Will Affect Care: None Current Living Situation: Assisted Current Living Situation Comment: Center Care Feels Safe at Home: Yes Safety Concerns: Feels Safe At This Time Assistive Devices: Wheelchair Review of Systems Review of Systems: All systems reviewed & are unremarkable except as noted in HPI & below Physical Exam Constitutional: WD/WN, vitals as above comfortable ENMT: Ears: no hearing impairment Neck: trachea midline Respiratory: normal respiratory effort, lungs clear to auscultation Auscultation: + diminished lung sounds Cardiovascular: Rate/Rhythm: + tachycardic Vessels: femoral pulses present; + abnormal peripheral pulses, + posterior tibial pulses abnormal (nonpalpable) and + dorsalis pedis pulses abnormal (nonpalpable) Extremities: normal capillary refill, + edema and + vascular access device (R IJ permcath nontender, no erythema or drainage.) Gastrointestinal (Abdomen): Inspection/Auscultation: abdomen normal to inspection and normal bowel sounds Percussion/Palpation: abdomen soft; abdomen nontender Skin: + eschar (wet R lat foot, lat foot. Dry L heel) Neurologic: moves all extremities and awake; no focal motor deficits and not confused Results & [facility] ([facility]) Vital Signs (Past 12 Hours) Vital Signs Temp Pulse Pulse Pulse Resp BP Pulse Ox 11/07/21 12:00 36.8 C 102 H 18 144/85 H 96 11/07/21 06:47 36.9 C 104 H 18 123/76 92 11/07/21 06:19 103 H
[2021-11-07] MEDS: ATORVASTATIN 40 MG TAB PO SCH (20:41)
[2021-11-07] MEDS: GABAPENTIN 100 MG CAP PO SCH (20:42)
[2021-11-07] MEDS: LANTUS PER UNIT CHARGE SQ SCH (20:51)
--- NOTE | 2021-11-07 22:33 | Electrocardiogram Report ---
Test Reason : Blood Pressure : / mmHG Vent. Rate : 102 BPM Atrial Rate : 102 BPM P-R Int : 174 ms QRS Dur : 088 ms QT Int : 390 ms P-R-T Axes : 024 -38 055 degrees QTc Int : 508 ms Sinus tachycardia Left axis deviation Minimal voltage criteria for LVH, may be normal variant Inferior infarct (cited on or before 06-AUG-2021) Anterior infarct (cited on or before 04-AUG-2021) Prolonged QT Abnormal ECG When compared with ECG of 06-AUG-2021 11:42, Questionable change in initial forces of Anteroseptal leads Anterior infarct is now Present Confirmed by Zi Carter ([id number]) on 11/07/2021 10:32:40 PM Referred By: [facility] Confirmed By:Zi Carter
[2021-11-08] MEDS: PIPERACILLIN/TAZOBACTAM 4.5 GM in DEXTROSE 5% 100 ML IV SCH ×2 (04:29→16:23)
[2021-11-08] MEDS: LEVOTHYROXINE SODIUM 88 MCG TABLET PO SCH (05:57)
[2021-11-08 07:27] LABS: Hematocrit (blood only) 30.7 % (34.1-44.9); Mean Corpuscular Hemoglobin 29.9 pg (25.0-34.0); Mean Corpuscular Hgb Conc 32.6 g/dL (32.0-36.0); Mean Corpuscular Volume 91.6 fL (80.0-100.0); Mean Platelet Volume 9.2 fL (9.4-12.3); Platelet Count 241 K/uL (130-400); RDW Coefficient of Variation 15.5 % (11.5-14.5); RDW Standard Deviation 51.4 fL (36.4-46.3); Red Blood Count 3.35 M/uL (3.93-5.22); White Blood Count 9.28 K/ul (4.8-10.8)
[2021-11-08] MEDS: MIDODRINE HCL 10 MG TAB PO SCH (07:40)
[2021-11-08] MEDS: PROSOURCE NO CARB 30 ML/PKT PO SCH (07:41)
[2021-11-08] MEDS: DOCUSATE SODIUM 100 MG CAP PO SCH ×2 (07:41→20:40)
[2021-11-08] MEDS: DULoxetine HCL 30 MG CAP PO SCH (07:41)
[2021-11-08] MEDS: SEVELAMER HCL 800 MG TABLET PO SCH ×3 (07:42→18:00)
[2021-11-08] MEDS: NEPHROCAPS PO SCH (07:42)
[2021-11-08] MEDS: SACCHAROMYCES BOULARDII 250 MG CAP PO SCH ×2 (07:43→20:40)
[2021-11-08] MEDS: PANTOprazole 40 MG TAB PO SCH ×2 (07:43→20:40)
[2021-11-08] MEDS: MENTHOL-ZINC OXIDE 360 APPLN/120 GM TUBE EXT SCH ×2 (07:44→15:43)
[2021-11-08 07:56] LABS: Calcium 8.5 mg/dl (8.5-10.1); Creatinine Clr Calc Pharmacy 13.7 ml/min; Est GFR (African American) 12.4 ml/min; Est GFR (Non-African American) 10.7 ml/min; Magnesium 1.5 mg/dl (1.7-2.4); Potassium 3.8 mmol/L (3.5-5.1)
--- NOTE | 2021-11-08 08:29 | Pharmacy Report ---
Pharmacy PK ABX Note - Date of Service November 08, 2021 - Assessment and Plan Assessment 71 year old F receiving IV Vancomycin and Zosyn for possible osteomyelitis of bilateral foot wounds. * PMHx significant for ESRD on HD MWF, T2DM. From [facility]. Recent hospitalization in August 2021 for similar issue. Recent abx include: doxycycline, bactrim, and levofloxacin. * R foot MRI report states: "concerning for an early osteomyelitis". L foot MRI reports states: "No MRI evidence for acute osteomyelitis". * 10/31/21 foot culture (unsure which foot???) from [facility] grew MRSA (Vanc TSERING = 2) and Proteus mirabilis. Blood cultures no growth x 24hrs. * Patient is afebrile and without leukocytosis. ESR/CRP are elevated (11/06/21). * No HD yesterday, planned session today (11/08/21). * Patient still producing a decent amount of urine per day. Plan Vancomycin * Received 500 mg IV x 1 yesterday at 1300 (despite no HD yesterday, since treating MRSA DFI/OM and producing urine). * Random level obtained 11/08/21 resulted as 20.3 mcg/mL. This is predicted to achieve target AUC/TSERING of 400-600 mg/L.hr. * Additional one-time IV dose of 500 mg Vancomycin today after HD. * Repeat random level ordered for: 11/09/21 AM Zosyn * Continue Zosyn 4.5 g IV every 12 hours for HD
[2021-11-08] MEDS: INSULIN ASPART PER UNIT SC SCH ×4 (08:46→20:41)
[2021-11-08] MEDS: MAGNESIUM SULFATE / D5W 1 GM/100 ML BAG IV SCH ×2 (09:38→11:03)
[2021-11-08 14:01] LABS: HBSAG NON-REACTIVE (NON-REACTIVE); Hepatitis B Surface Ab, Quant <5 mIU/mL (> OR = 10)
--- NOTE | 2021-11-08 14:26 | Hospitalist Progress Note ---
Date of Service November 08, 2021 Assessment & Plan (1) Sepsis: Plan: - Source most likely diabetic foot wound/osteomyelitis in one or both feet/ankle. HD catheter does not appear infected. Wound cultures obtained on 10/31 at [facility], currently growing MRSA and Proteus. Had been started on Bactrim on 11/01, doxycycline on 11/02, and Levaquin on 11/04. - MRI right foot on 11/06 with concern for early osteomyelitis in the lateral base of the 5th metatarsal. - MRI left foot on 11/06 without signs for osteomyelitis - Started on vancomycin and Rocephin in ED - Switched to vanc/Zosyn - Blood culture sent, urine culture from yesterday at [facility] pending. UA collected here, with reflex for culture. - Consulted vascular surgery and orthopedics to evaluate and discuss need for further intervention. - Vascular surgery says no immediate procedures warranted. - Patient is adamantly opposed to amputation. Will see what surgical options may be available. Discussed with orthopedics today; Dr. Naqvi will hopefully see her tomorrow as he is construction project coordinator. (2) PAD (peripheral artery disease): Plan: Severe PAD based on clinical exam and bilateral lower extremity arterial Dopplers showing advanced peripheral vascular disease with multifocal bilateral vascular occlusions. - Dr. Pablo consulted as above. - Pending - Per previous notes, patient strongly opposed to amputation. (3) Ischemic cardiomyopathy: Plan: Echo in August with EF 30-35%, septal akinesis, inferobasal akinesis, moderate global hypokinesis of left ventricle. Elevated RVSP 40-50 mmHg. - Presently appears euvolemic; likely management with HD. - Continue home statin; not on beta-noel or ACEi possibly due to low BP given her midodrine on HD days (4) ESRD (end stage renal disease) on dialysis: Plan: Dialysis at [facility] , completed full treatment today without complications. - Consulted [facility] nephrology - Plan for HD today. (5) Metabolic encephalopathy: Plan: 2/2 to sepsis. Had difficultly recalling events, mixing up details. A+O x3 at baseline. - At baseline by 11/07 (6) Aortic stenosis: Plan: Moderate to severe on echo in August. - Maintain adequate volume status. - Should follow up with cardiology outpt for this. (7) Diabetic peripheral neuropathy: Plan: A1c was 9.4% in October. - Continue Lantus 20 u HS with SSI. (Lowered from 30 units HS for hypoglycemia the morning of 11/07) - BSs in last 24 hours: 80 - 175. - Diabetic diet. - Continue gabapentin for neuropathy. (8) Anemia in chronic renal disease: Plan: Iron studies in August showed normal serum iron, B12, and folate. Hgb 11.5, stable, without evidence of acute bleed. - Follow on AM CBC. (9) Coronary artery disease: Plan: Chronic, stable. Unclear history, did have wall motion abnormalities on echo in August 2021. - No acute needs. - Continue statin, no longer on beta-noel or ACEi/ARB due to hypotension. (10) Depression: Plan: - Continue Cymbalta 30 mg daily. (11) Hypothyroidism: Plan: TSH was 4.6 this admission. - Continue levothyroxine 88 mcg daily. (12) Chronic respiratory failure with hypoxia: Plan: Reportedly uses 2L NC at baseline, however has been on RA in ED with SpO2 > 93%. - Monitor (13) DVT prophylaxis: Plan: SCDs - Hold heparin until seen by ortho Admission and Anticipated Discharge Date Admission Date: November 06, 2021 Subjective Feels her legs are doing ok today. Reports no fevers/chills, chest pain, shortness of breath, abdominal pain, nausea, or vomiting. Physical Exam Constitutional: WD/WN, vitals as above Eyes: EOM intact bilaterally; no conjunctival abnormality ENMT: external ear and nose normal, oropharynx normal Neck: trachea midline, no thyromegaly normal visual inspection Respiratory: normal respiratory effort, lungs clear to auscultation no respiratory distress Cardiovascular: RRR, no murmur, no edema Gastrointestinal (Abdomen): Inspection/Auscultation: abdomen normal to inspection; abdomen not distended Musculoskeletal: no cyanosis or clubbing, extremities motor strength 5/5 Skin: + ulcer (On both legs. No purulence noted.) Neurologic: moves all extremities and awake Psychiatric: Orientation: alert, oriented to person and cooperative Results & Data Results & Data ([facility]) Vital Signs (Past 12 Hours) Vital Signs Temp Pulse Pulse Pulse Pulse Resp BP 11/08/21 13:45 38 L 64/31 L 11/08/21 13:30 67 98/65 L 11/08/21 13:15 67 91/51 L 11/08/21 13:00 68 92/61 L 11/08/21 12:45 86 104/66 11/08/21 12:30 79 114/62 11/08/21 12:15 88 98/63 L 11/08/21 12:00 91 H 116/63 11/08/21 11:45 90 133/74 11/08/21 11:30 91 H 128/72 11/08/21 11:22 93 H 142/69 H 11/08/21 11:10 36.5 C 94 H 11/08/21 07:16 36.7 C 96 H 18 11/08/21 04:00 36.4 C L 93 H 16 BP Pulse Ox 11/08/21 13:45 11/08/21 13:30 11/08/21 13:15 11/08/21 13:00 11/08/21 12:45 11/08/21 12:30 11/08/21 12:15 11/08/21 12:00 11/08/21 11:45 11/08/21 11:30 11/08/21 11:22 11/08/21 11:10 11/08/21 07:16 119/78 93 11/08/21 04:00 96/59 L 96 PG Care Time/CCT Total # of Minutes Spent Total Time Spent with Patient: Total time spent is greater than 50% in coordination of care (as documented) at patient's floor/unit and/or counseling patient: Coding Level of Care Code 41272 Subseq Hosp Care Lvl 2 Diagnoses Sepsis A41.9 Sepsis acute organ dysfunction status: unspecified Sepsis type: sepsis due to unspecified organism PAD (peripheral artery disease) I73.9 Ischemic cardiomyopathy I25.5 ESRD (end stage renal disease) on dialysis N18.6; Z99.2 Metabolic encephalopathy G93.41 Aortic stenosis I35.0 Diabetic peripheral neuropathy E11.42 Anemia in chronic renal disease N18.9; D63.1 Coronary artery disease I25.10 Depression F32.A Hypothyroidism E03.9 Chronic respiratory failure with hypoxia J96.11 DVT prophylaxis Z29.9 (1) Sepsis Sepsis acute organ dysfunction status: unspecified Sepsis type: sepsis due to unspecified organism Qualified Code(s): A41.9 - Sepsis, unspecified organism
--- NOTE | 2021-11-08 14:31 | Nephrology Progress Note ---
Date of Service November 08, 2021 Assessment & Plan (1) ESRD (end stage renal disease) on dialysis: Plan: ESRD on dialysis Thursday and Thursday -Last dialyzed on Thursday. -Electrolytes safe. -Dialyze TODAY for 3 hours due to 2.0 L UF, keep SBP > 100 -Please continue her on outpatient medications. (2) Diabetic foot ulcer: Plan: - Chronic foot ulcers- Renally dose antibiotics, timing it with the dialysis treatment. - Refused surgery. Admission and Anticipated Discharge Date Admission Date: November 06, 2021 Subjective Feels her legs are doing fine. Reports no fevers/chills, chest pain, shortness of breath, abdominal pain, nausea, or vomiting. Review of Systems Review of Systems: Constitutional-Alert cooperative,Comfortable,Depressed No shortness of breath Physical Exam Physical Exam: General: awake, alert, no apparent distress Head: Normocephalic, atraumatic ENT: PERRL, EOMI, mucous membranes moist Chest: Clear to auscultation, on room air, no adventitious breath sounds Cardiac: Regular rate and rhythm, no murmur, no JVD Abdominal: soft, nontender to palpation, no rebound, guarding or tenderness Extremities: Ulcer over the left heel appears to be necrotic with necrosis over the right lateral and right medial foot with surrounding erythema and discharge( inbandage) Neuro: AAO x 3 Results & Data ([facility]) Vital Signs (Past 12 Hours) Vital Signs Temp Pulse Pulse Pulse Pulse Resp BP 11/08/21 13:45 38 L 64/31 L 11/08/21 13:30 67 98/65 L 11/08/21 13:15 67 91/51 L 11/08/21 13:00 68 92/61 L 11/08/21 12:45 86 104/66 11/08/21 12:30 79 114/62 11/08/21 12:15 88 98/63 L 11/08/21 12:00 91 H 116/63 11/08/21 11:45 90 133/74 11/08/21 11:30 91 H 128/72 11/08/21 11:22 93 H 142/69 H 11/08/21 11:10 36.5 C 94 H 11/08/21 07:16 36.7 C 96 H 18 11/08/21 04:00 36.4 C L 93 H 16 BP Pulse Ox 11/08/21 13:45 11/08/21 13:30 11/08/21 13:15 11/08/21 13:00 11/08/21 12:45 11/08/21 12:30 11/08/21 12:15 11/08/21 12:00 11/08/21 11:45 11/08/21 11:30 11/08/21 11:22 11/08/21 11:10 11/08/21 07:16 119/78 93 11/08/21 04:00 96/59 L 96 Laboratory Results 11/08/21 06:42 11/08/21 06:42 (1) Diabetic foot ulcer Diabetes mellitus type: other specified (including TU) Diabetic foot ulcer location: unspecified part of foot Laterality: unspecified laterality Non- pressure ulcer stage: unspecified non-pressure ulcer stage Qualified Code(s): E13.621 - Other specified diabetes mellitus with foot ulcer; L97.509 - Non- pressure chronic ulcer of other part of unspecified foot with unspecified severity
--- NOTE | 2021-11-08 15:55 | Communication Note ---
Date of Service: November 08, 2021 Checking patient later this afternoon. He had been struggling with pain control issues again and IV Toradol was used. We discussed continuing his stay here until we could get his pain controlled. Patient does go through good periods during the day with adequate pain control. Hemoglobin had dropped down to 8.3 this morning from 9.7. Repeat hemoglobin this afternoon was 7.9. Pulse has been in the high 90s and nursing stated that he was at 105 at 1 point but not documented. Blood pressures have been on the lower side today and seem to be fluctuating. Seeing the patient a few minutes ago, he was put on oxygen because he was starting to feel somewhat short winded. Patient has a history of COPD. We will plan on getting a chest x-ray. 1 unit of PRBCs has been ordered and we will place a consult for [facility]. We will continue to try to follow pain management recommendations for his pain control. Plan for repeat lab work in the morning.
[2021-11-08] MEDS ORDERED: VANCOMYCIN HCL 500 MG in 0.9 % SODIUM CHLORIDE 100 ML IV ONE (16:00)
[2021-11-08] MEDS: ATORVASTATIN 40 MG TAB PO SCH (20:40)
[2021-11-08] MEDS: GABAPENTIN 100 MG CAP PO SCH (20:40)
[2021-11-08] MEDS: LANTUS PER UNIT CHARGE SQ SCH (21:08)
[2021-11-09] MEDS: MENTHOL-ZINC OXIDE 360 APPLN/120 GM TUBE EXT SCH ×3 (00:09→17:31)
[2021-11-09] MEDS: LEVOTHYROXINE SODIUM 88 MCG TABLET PO SCH (05:56)
[2021-11-09 06:47] LABS: Hematocrit (blood only) 32.6 % (34.1-44.9); Hemoglobin 10.7 g/dl (12.0-16.0); Mean Corpuscular Hgb Conc 32.8 g/dL (32.0-36.0); Mean Corpuscular Volume 91.3 fL (80.0-100.0); Mean Platelet Volume 9.5 fL (9.4-12.3); Platelet Count 241 K/uL (130-400); RDW Coefficient of Variation 15.7 % (11.5-14.5); RDW Standard Deviation 52.2 fL (36.4-46.3); Red Blood Count 3.57 M/uL (3.93-5.22); White Blood Count 7.73 K/ul (4.8-10.8)
[2021-11-09 07:14] LABS: BUN Creatinine Ratio 8.5 (10-20); Calcium 8.5 mg/dl (8.5-10.1); Creatinine Clr Calc Pharmacy 17.6 ml/min; Est GFR (African American) 17.1 ml/min; Est GFR (Non-African American) 14.8 ml/min; Potassium 3.6 mmol/L (3.5-5.1)
[2021-11-09] MEDS: PANTOprazole 40 MG TAB PO SCH ×2 (07:29→20:07)
[2021-11-09] MEDS: SEVELAMER HCL 800 MG TABLET PO SCH ×3 (07:29→17:30)
[2021-11-09] MEDS: SACCHAROMYCES BOULARDII 250 MG CAP PO SCH ×2 (07:30→20:07)
[2021-11-09] MEDS: NEPHROCAPS PO SCH (07:30)
[2021-11-09] MEDS: DOCUSATE SODIUM 100 MG CAP PO SCH ×2 (07:30→20:08)
[2021-11-09] MEDS: PROSOURCE NO CARB 30 ML/PKT PO SCH (07:31)
[2021-11-09] MEDS: DULoxetine HCL 30 MG CAP PO SCH (07:31)
[2021-11-09] MEDS: INSULIN ASPART PER UNIT SC SCH ×4 (07:40→20:38)
--- NOTE | 2021-11-09 10:12 | Pharmacy Report ---
Pharmacy PK ABX Note - Date of Service November 09, 2021 - Assessment and Plan Assessment 71 year old F receiving IV Vancomycin and ceftriaxone for possible osteomyelitis of bilateral foot wounds. * PMHx significant for ESRD on HD MWF, T2DM. From [facility]. Recent hospitalization in August 2021 for similar issue. Recent abx include: doxycycline, bactrim, and levofloxacin. * R foot MRI report states: "concerning for an early osteomyelitis". L foot MRI reports states: "No MRI evidence for acute osteomyelitis". * 10/31/21 foot culture (unsure which foot???) from [facility] grew MRSA (Vanc TSERING = 2) and Proteus mirabilis. Blood cultures no growth x 24hrs. * Last HD was yesterday for 3 hours * Patient is still producing a good amount of urine for an HD patient Vancomycin * Random AM level in goal range * No HD anticipated * May still clear some vancomycin w/o HD as still produces urine, however as level is in the upper end of goal range, OK to refrain from additional vanco at this time, unless the patient is dialyzed today Plan * No additional vancomycin today, unless receives HD for >= 1 hour. If so - then vanco 500 mg IV x1 * Random level with AM labs
[2021-11-09] MEDS: cefTRIAXone SODIUM 2,000 MG in DEXTROSE 5% 50 ML IV SCH (11:08)
--- NOTE | 2021-11-09 11:11 | Orthopedic Progress Note ---
Date of Service November 09, 2021 Assessment & Plan (1) Diabetic foot ulcer: Plan: With multiple ulcers over the right and left foot. Foot x-ray showing postoperative findings in the right calcaneus with possible interval bone loss with cortical irregularity could be secondary to surgery. Left foot x-ray showing possible erosion of the posterior aspect of the left calcaneus and distal tuft of the distal phalanx of the left first toe with osteomyelitis not being excluded. Left foot MRI showing no acute fracture, marrow edema, or MRI evidence of acute osteomyelitis. Right foot MRI showing abnormal signal within the lateral base of the fifth metatarsal with overlying skin ulceration concerning for early osteomyelitis. No abscess is noted on the right or left foot. Abnormal signal noted in the calcaneus of the right foot which could be related to postoperative change. Most recent duplex scan of the lower extremities on 08/07/2021 showing advanced peripheral vascular disease with multifocal bilateral vascular occlusions. spoke with patient again today and adamant that she does not want a bka. She would like to continue with local debridements only. Will discuss with Dr. Naqvi, most likely plan for debridement tomorrow Admission and Anticipated Discharge Date Admission Date: November 06, 2021 Subjective Resting comfortably in bed. Long discussion of her feet and upcoming surgeries that will be needed as well as IV abx. No complaints today Physical Exam Physical Exam: extensive ulcerations to the feet. some erythema. Results & Data ([facility]) Vital Signs (Past 12 Hours) Vital Signs Temp Pulse Pulse Pulse Resp BP BP 11/09/21 07:50 36.7 C 93 H 16 134/72 11/09/21 07:17 91 H 11/09/21 02:36 36.5 C 82 20 101/65 Pulse Ox 11/09/21 07:50 95 11/09/21 07:17 11/09/21 02:36 95 (1) Diabetic foot ulcer Diabetes mellitus type: other specified (including TU) Diabetic foot ulcer location: unspecified part of foot Laterality: unspecified laterality Non- pressure ulcer stage: unspecified non-pressure ulcer stage Qualified Code(s): E13.621 - Other specified diabetes mellitus with foot ulcer; L97.509 - Non- pressure chronic ulcer of other part of unspecified foot with unspecified severity
--- NOTE | 2021-11-09 13:55 | Hospitalist Progress Note ---
Date of Service November 09, 2021 Assessment & Plan (1) Sepsis: Plan: - Source most likely diabetic foot wound/osteomyelitis in one or both feet/ankle. HD catheter does not appear infected. Wound cultures obtained on 10/31 at [facility], currently growing MRSA and Proteus. Had been started on Bactrim on 11/01, doxycycline on 11/02, and Levaquin on 11/04. - MRI right foot on 11/06 with concern for early osteomyelitis in the lateral base of the 5th metatarsal. - MRI left foot on 11/06 without signs for osteomyelitis - Started on vancomycin and Rocephin in ED - Switched to vanc/Zosyn - Switched to vanc/ceftriaxone to follow prior cultures on 11/09. - Blood culture sent, urine culture from yesterday at [facility] pending. UA collected here, with reflex for culture. - Consulted vascular surgery and orthopedics to evaluate and discuss need for further intervention. - Vascular surgery says no immediate procedures warranted. - Patient is adamantly opposed to amputation. Discussed with orthopedics today; Dr. Naqvi will likely do debridement on her foot tomorrow. - ID consulted and saw the patient - Note upload pending. (2) PAD (peripheral artery disease): Plan: Severe PAD based on clinical exam and bilateral lower extremity arterial Dopplers showing advanced peripheral vascular disease with multifocal bilateral vascular occlusions. - Dr. Pablo consulted as above. - Pending - Per previous notes, patient strongly opposed to amputation. (3) Ischemic cardiomyopathy: Plan: Echo in August with EF 30-35%, septal akinesis, inferobasal akinesis, moderate global hypokinesis of left ventricle. Elevated RVSP 40-50 mmHg. - Presently appears euvolemic; likely management with HD. - Continue home statin; not on beta-noel or ACEi possibly due to low BP given her midodrine on HD days (4) ESRD (end stage renal disease) on dialysis: Plan: Dialysis at [facility] , completed full treatment today without complications. - Consulted [facility] nephrology - HD on 11/08. (5) Metabolic encephalopathy: Plan: 2/2 to sepsis. Had difficultly recalling events, mixing up details. A+O x3 at baseline. - At baseline by 11/07 (6) Aortic stenosis: Plan: Moderate to severe on echo in August. - Maintain adequate volume status. - Should follow up with cardiology outpt for this. (7) Diabetic peripheral neuropathy: Plan: A1c was 9.4% in October. - Continue Lantus 20 u HS with SSI. (Lowered from 30 units HS for hypoglycemia the morning of 11/07) - BSs in last 24 hours: 80 - 175. - Diabetic diet. - Continue gabapentin for neuropathy. (8) Anemia in chronic renal disease: Plan: Iron studies in August showed normal serum iron, B12, and folate. Hgb 11.5, stable, without evidence of acute bleed. - Follow on AM CBC. (9) Coronary artery disease: Plan: Chronic, stable. Unclear history, did have wall motion abnormalities on echo in August 2021. - No acute needs. - Continue statin, no longer on beta-noel or ACEi/ARB due to hypotension. (10) Depression: Plan: - Continue Cymbalta 30 mg daily. (11) Hypothyroidism: Plan: TSH was 4.6 this admission. - Continue levothyroxine 88 mcg daily. (12) Chronic respiratory failure with hypoxia: Plan: Reportedly uses 2L NC at baseline, however has been on RA in ED with SpO2 > 93%. - Monitor (13) DVT prophylaxis: Plan: SCDs - Hold heparin for possible procedure tomorrow. Admission and Anticipated Discharge Date Admission Date: November 06, 2021 Subjective Doing well today. No major issues. Reports no fevers/chills, chest pain, shortness of breath, abdominal pain, nausea, or vomiting. Physical Exam Constitutional: WD/WN, vitals as above Eyes: EOM intact bilaterally; no conjunctival abnormality ENMT: external ear and nose normal, oropharynx normal Neck: trachea midline, no thyromegaly normal visual inspection Respiratory: normal respiratory effort, lungs clear to auscultation no respiratory distress Cardiovascular: RRR, no murmur, no edema Gastrointestinal (Abdomen): Inspection/Auscultation: abdomen normal to inspection; abdomen not distended Musculoskeletal: no cyanosis or clubbing, extremities motor strength 5/5 Skin: + ulcer (On both legs. No purulence noted.) Neurologic: moves all extremities and awake Psychiatric: Orientation: alert, oriented to person and cooperative Results & Data Results & Data ([facility]) Vital Signs (Past 12 Hours) Vital Signs Temp Pulse Pulse Pulse Resp BP BP 11/09/21 11:58 36.7 C 101 H 16 106/71 11/09/21 07:50 36.7 C 93 H 16 134/72 11/09/21 07:17 91 H 11/09/21 02:36 36.5 C 82 20 101/65 Pulse Ox 11/09/21 11:58 96 11/09/21 07:50 95 11/09/21 07:17 11/09/21 02:36 95 PG Care Time/CCT Total # of Minutes Spent Total Time Spent with Patient: Total time spent is greater than 50% in coordination of care (as documented) at patient's floor/unit and/or counseling patient: Coding Level of Care Code 71150 Subseq Hosp Care Lvl 2 Diagnoses Sepsis A41.9 Sepsis acute organ dysfunction status: unspecified Sepsis type: sepsis due to unspecified organism PAD (peripheral artery disease) I73.9 Ischemic cardiomyopathy I25.5 ESRD (end stage renal disease) on dialysis N18.6; Z99.2 Metabolic encephalopathy G93.41 Aortic stenosis I35.0 Diabetic peripheral neuropathy E11.42 Anemia in chronic renal disease N18.9; D63.1 Coronary artery disease I25.10 Depression F32.A Hypothyroidism E03.9 Chronic respiratory failure with hypoxia J96.11 DVT prophylaxis Z29.9 (1) Sepsis Sepsis acute organ dysfunction status: unspecified Sepsis type: sepsis due to unspecified organism Qualified Code(s): A41.9 - Sepsis, unspecified organism
[2021-11-09] MEDS ORDERED: VANCOMYCIN HCL 500 MG in DEXTROSE 5% 100 ML IV PRN (16:00)
[2021-11-09] MEDS: ATORVASTATIN 40 MG TAB PO SCH (20:07)
[2021-11-09] MEDS: GABAPENTIN 100 MG CAP PO SCH (20:07)
[2021-11-09] MEDS: LANTUS PER UNIT CHARGE SQ SCH (21:06)
[2021-11-09 21:39] LABS: Adenovirus F 40/41 PCR Not Detected (NotDetected); Astrovirus PCR Not Detected (NotDetected); Campylobacter PCR Not Detected (NotDetected); Clostridium diff Toxin A/B PCR Not Detected (NotDetected); Cryptosporidium PCR Not Detected (NotDetected); Cyclospora cayetanensis PCR Not Detected (NotDetected); Entamoeba histolytica PCR Not Detected (NotDetected); Enteroaggregative E.coli(EAEC) Not Detected (NotDetected); Enteropathogenic E.coli (EPEC) Not Detected (NotDetected); Enterotoxigenic E.coli (ETEC) Not Detected (NotDetected); Giardia lamblia PCR Not Detected (NotDetected); Norovirus GI/GII PCR Not Detected (NotDetected); Plesiomonas shigelloides PCR Not Detected (NotDetected); Rotavirus A PCR Not Detected (NotDetected); Salmonella PCR Not Detected (NotDetected); Sapovirus PCR Not Detected (NotDetected); Shiga-like Toxin E.coli (STEC) Not Detected (NotDetected); Shigella/Enteroinvasive E.coli Not Detected (NotDetected); Vibrio cholerae PCR Not Detected (NotDetected); Vibrio species PCR Not Detected (NotDetected); Yersinia enterocolitica PCR Not Detected (NotDetected)
[2021-11-10] MEDS: MENTHOL-ZINC OXIDE 360 APPLN/120 GM TUBE EXT SCH ×3 (01:36→16:29)
[2021-11-10] MEDS: LEVOTHYROXINE SODIUM 88 MCG TABLET PO SCH (05:37)
[2021-11-10 06:33] LABS: Hematocrit (blood only) 30.3 % (34.1-44.9); Hemoglobin 10.1 g/dl (12.0-16.0); Mean Corpuscular Hemoglobin 29.9 pg (25.0-34.0); Mean Corpuscular Hgb Conc 33.3 g/dL (32.0-36.0); Mean Corpuscular Volume 89.6 fL (80.0-100.0); Mean Platelet Volume 9.2 fL (9.4-12.3); Platelet Count 236 K/uL (130-400); RDW Coefficient of Variation 15.3 % (11.5-14.5); RDW Standard Deviation 49.8 fL (36.4-46.3); Red Blood Count 3.38 M/uL (3.93-5.22); White Blood Count 8.92 K/ul (4.8-10.8)
[2021-11-10 06:57] LABS: BUN Creatinine Ratio 11.2 (10-20); Calcium 8.6 mg/dl (8.5-10.1); Creatinine Clr Calc Pharmacy 14.3 ml/min; Est GFR (African American) 13.4 ml/min; Est GFR (Non-African American) 11.6 ml/min; Potassium 3.3 mmol/L (3.5-5.1)
--- NOTE | 2021-11-10 07:34 | Anesthesiology Consultation ---
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 History Surgery Operation Date: 11/10/21 12:00 Proposed Procedures p Incision and Drainage Extremity(Bilateral) - Nolberto Naqvi DO Height/Weight Height: 5 ft 3 in Weight: 83.5 kg Allergies Allergy/AdvReac Type Severity Reaction Status Date / Time cyclobenzaprine Allergy Unknown ON MED LIST Verified 11/06/21 17:08 [facility] Medications Home Medications Medication Instructions Recorded Confirmed Last Taken Aquacel Ac Dressing 1 applic TOPICAL DAILY 11/06/21 11/06/21 Unknown Saccharomyces boulardii 250 mg 0 mg PO BID 11/06/21 11/06/21 Unknown capsule (Florastor) acetaminophen 325 mg tablet 650 mg PO Q6 PRN 11/06/21 11/06/21 Unknown (Tylenol) atorvastatin 80 mg tablet 80 mg PO QPM 11/06/21 11/06/21 Unknown bisacodyl 10 mg rectal suppository 10 mg TN DIRECTED PRN 11/06/21 11/06/21 Unknown (Dulcolax (bisacodyl)) docusate sodium 100 mg capsule 100 mg PO BID 11/06/21 11/06/21 Unknown doxycycline hyclate 100 mg tablet 100 mg PO BID 11/06/21 11/06/21 Unknown duloxetine 30 mg capsule,delayed 30 mg PO DAILY 11/06/21 11/06/21 Unknown release gabapentin 100 mg capsule 200 mg PO QPM 11/06/21 11/06/21 Unknown insulin glargine 100 unit/mL 30 unit SUBCUT HS 11/06/21 11/06/21 Unknown subcutaneous solution (Lantus U-100 Insulin) insulin lispro 100 unit/mL See Rx Instructions .ROUTE .COMPLEX 11/06/21 11/06/21 Unknown subcutaneous solution (Humalog U-100 Insulin) levofloxacin 500 mg tablet 500 mg PO .Q2DAYS @HS 11/06/21 11/06/21 Unknown levothyroxine 88 mcg tablet 88 mcg PO DAILY 11/06/21 11/06/21 Unknown menthol 0.44 %-zinc oxide 20.6 % 1 applic TOPICAL QS 11/06/21 11/06/21 Unknown topical ointment (Calmoseptine) midodrine 10 mg tablet 10 mg PO MOWEFR 11/06/21 11/06/21 Unknown pantoprazole 40 mg tablet,delayed 40 mg PO BID 11/06/21 11/06/21 Unknown release protein supplement 1 ea PO DAILY 11/06/21 11/06/21 Unknown sevelamer carbonate 800 mg tablet 800 mg PO .Q24HRS PRN 11/06/21 11/06/21 Unknown sevelamer carbonate 800 mg tablet 800 mg PO TIDM 11/06/21 11/06/21 Unknown vitamin B complex and vitamin C 1 cap PO DAILY 11/06/21 11/06/21 Unknown no.20-folic acid 1 mg capsule Active Medications Generic Name Dose Route Start Last Admin Trade Name Freq PRN Reason Stop Dose Admin Atorvastatin Calcium 80 mg 11/06/21 21:00 11/09/21 20:07 Atorvastatin 40 Mg Tab PO 12/06/21 20:59 80 mg QPM HUEY Administration Calamine/Phenol 1 appln 11/07/21 00:00 11/10/21 01:36 Menthol-Zinc Oxide 360 Appln/120 Gm Tube EXT 12/07/21 00:00 1 appln QS HUEY Administration Docusate Sodium 100 mg 11/06/21 21:00 11/09/21 20:08 Docusate Sodium 100 Mg Cap PO 12/06/21 20:59 Not Given BID HUEY Duloxetine HCl 30 mg 11/07/21 09:00 11/09/21 07:31 Duloxetine Hcl 30 Mg Cap PO 12/07/21 08:59 30 mg DAILY HUEY Administration Gabapentin 200 mg 11/06/21 21:00 11/09/21 20:07 Gabapentin 100 Mg Cap PO 12/06/21 20:59 200 mg QPM HUEY Administration Ceftriaxone Sodium 2,000 mg/ 70 mls @ 140 mls/hr 11/09/21 10:00 11/09/21 1 1:49 Dextrose IV 12/19/21 09:59 Infused QAM HUEY Infusion Protocol Insulin Aspart 0 units 11/06/21 21:00 11/09/21 20:38 Insulin Aspart Per Unit SC 12/06/21 20:59 Not Given ACHS HUEY Insulin Glargine 20 units 11/07/21 21:00 11/09/21 21:06 Lantus Per Unit Charge SQ 12/07/21 20:59 20 units HS HUEY Administration Levothyroxine Sodium 88 mcg 11/07/21 06:30 11/10/21 05:37 Levothyroxine Sodium 88 Mcg Tablet PO 12/07/21 06:29 88 mcg DAILYBB HUEY Administration Midodrine 10 mg 11/08/21 08:00 11/08/21 07:40 Midodrine Hcl 10 Mg Tab PO 12/08/21 07:59 10 mg MoWeFr@0800 HUEY Administration Miscellaneous 15 - 30 gm 11/06/21 19:36 11/07/21 07:26 Carbohydrates For Hypoglycemia PO 12/06/21 19:35 15 gm UD PRN Administration Hypoglycemia Protocol Nutritional Formula 30 ml 11/07/21 09:00 11/09/21 07:31 Prosource No Carb 30 Ml/Pkt PO 12/07/21 08:59 30 ml DAILY HUEY Administration Pantoprazole Sodium 40 mg 11/06/21 21:00 11/09/21 20:07 Pantoprazole 40 Mg Tab PO 12/06/21 20:59 40 mg BID HUEY Administration Saccharomyces Boulardii 250 mg 11/06/21 21:00 11/09/21 20:07 Saccharomyces Boulardii 250 Mg Cap PO 12/06/21 20:59 250 mg BID HUEY Administration Sevelamer HCl 800 mg 11/07/21 08:00 11/09/21 17:30 Sevelamer Hcl 800 Mg Tablet PO 12/07/21 07:59 800 mg TIDM HUEY Administration Tramadol HCl 25 mg 11/07/21 04:19 11/07/21 04:34 Tramadol Hcl 50 Mg Tablet PO 12/07/21 04:18 25 mg BID PRN Administration moderate pain >4/10 Vitamin B Complex/Folic Acid 1 cap 11/07/21 09:00 11/09/21 07:30 Nephrocaps PO 12/07/21 08:59 1 cap DAILY HUEY Administration Past Medical History Medical History Anemia in chronic renal disease Aortic stenosis Chronic respiratory failure with hypoxia Coronary artery disease Depression Diabetic peripheral neuropathy Encounter for removal of vascular catheter 08/2021 - Dr Inocencio Pablo (HD catheter) ESRD (end stage renal disease) on dialysis History of CVA (cerebrovascular accident) History of gastrointestinal bleeding Hypertension Hypothyroidism Ischemic cardiomyopathy Obesity Obstructive sleep apnea PAD (peripheral artery disease) Past Family History Family History Other No pertinent family history Past Surgical History Surgical History H/O foot surgery 08/2021 - right calcaneal resection 2nd to osteomyelitis - Dr Dick Naqvi Social History Smoking Status: Never smoker Hx Alcohol Use: No Hx Substance Use: No substance use type: does not use Physical Exam Vital Signs Last Vital Signs Temp 97.7 F 11/10/21 03:05 Pulse 96 H 11/10/21 03:05 Resp 16 11/10/21 03:05 BP 136/73 11/10/21 03:05 Pulse Ox 97 11/10/21 03:05 Testing Laboratory Results 11/10/21 06:16 11/10/21 06:16 PT 12.6 Seconds (9.0-12.0) H 11/07/21 06:33 INR 1.2 (0.9-1.1) H 11/07/21 06:33 APTT 30.2 Seconds (21.0-31.0) 11/06/21 12:42 11/06/21 13:14 Aerobic Blood Culture - Preliminary Blood No growth in Aerobic bottle after 48 hours. Anaerobic Blood Culture - Final 11/06/21 12:42 Aerobic Blood Culture - Preliminary Blood No growth in Aerobic bottle after 48 hours. Anaerobic Blood Culture - Preliminary No growth in Anaerobic bottle after 48 hours. 11/10/21 11/09/21 11/09/21 06:00 23:38 20:29 POC Glucose 104 H 161 H 134 H Electrocardiogram Date: 11/06/21 Sinus tachycardia Left axis deviation Minimal voltage criteria for LVH, may be normal variant Inferior infarct (cited on or before 06-AUG-2021) Anterior infarct (cited on or before 04-AUG-2021) Prolonged QT Abnormal ECG When compared with ECG of 06-AUG-2021 11:42, Questionable change in initial forces of Anteroseptal leads Anterior infarct is now Present Confirmed by Zi Carter ([id number]) on 11/07/2021 10:32:40 PM Chest X-Ray Date: 11/06/21 IMPRESSION: 1. Cardiomegaly without acute process. 2. Interstitial coarsening with linear mid lung predominant opacities redemonstrated suggestive of atelectasis versus scarring. Echocardiogram Date: 08/06/21 LV systolic function is moderately reduced EF 30-35% There is moderate global hypokinesis of the LV There are regional wall motion abnormalities as specified There is septal akinesis Inferobasal akinesis. Only the lateral base moves normally. Mod to severe valvular There is mild TR RVSP is elevated at 40-50mmHg
[2021-11-10] MEDS: INSULIN ASPART PER UNIT SC SCH ×4 (08:03→20:08)
[2021-11-10] MEDS: SEVELAMER HCL 800 MG TABLET PO SCH ×3 (08:03→16:29)
[2021-11-10] MEDS: DOCUSATE SODIUM 100 MG CAP PO SCH ×2 (08:03→20:01)
[2021-11-10] MEDS: PROSOURCE NO CARB 30 ML/PKT PO SCH (08:04)
[2021-11-10] MEDS: SACCHAROMYCES BOULARDII 250 MG CAP PO SCH ×2 (08:07→20:01)
[2021-11-10] MEDS: PANTOprazole 40 MG TAB PO SCH ×2 (08:07→20:01)
[2021-11-10] MEDS: cefTRIAXone SODIUM 2,000 MG in DEXTROSE 5% 50 ML IV SCH (08:08)
[2021-11-10] MEDS: NEPHROCAPS PO SCH (08:08)
[2021-11-10] MEDS: DULoxetine HCL 30 MG CAP PO SCH (08:08)
--- NOTE | 2021-11-10 09:27 | Pharmacy Report ---
Pharmacy PK ABX Note - Date of Service November 10, 2021 - Assessment and Plan Assessment 71 year old F receiving IV Vancomycin and ceftriaxone for possible osteomyelitis of bilateral foot wounds. * PMHx significant for ESRD on HD MWF, T2DM. From [facility]. Recent hospitalization in August 2021 for similar issue. Recent abx include: doxycycline, bactrim, and levofloxacin. * R foot MRI report states: "concerning for an early osteomyelitis". L foot MRI reports states: "No MRI evidence for acute osteomyelitis". * 10/31/21 foot culture (unsure which foot???) from [facility] grew MRSA (Vanc TSERING = 2) and Proteus mirabilis. Blood cultures no growth x 24hrs. * Last HD was Thursday for 3 hours - MWF schedule anticipated * Patient is still producing a good amount of urine for an HD patient Vancomycin * Random AM level in goal range * No HD anticipated * Based on trend down from 19.5 to 16.9 mcg/mL over the last 24 hours without HD, anticipate that level tomorrow AM may be subtherapeutic even without HD today as patient does clear on their own. Will provide small dose today Plan * Vanco 500 mg IV x1 * Random level with AM labs
[2021-11-10] MEDS ORDERED: fentaNYL citrate 100 MCG/2 ML VIAL IV PRN (09:50)
[2021-11-10] MEDS ORDERED: ePHEDrine sulfate 50 MG/ML AMP IV PRN (09:50)
[2021-11-10] MEDS ORDERED: ONDANSETRON INJ 2 MG/ML 2 ML VIAL IV PRN (09:50)
[2021-11-10] MEDS ORDERED: ATROPINE SULFATE 0.1 MG/ML 10ML SYR IV PRN (09:50)
--- NOTE | 2021-11-10 10:35 | History & Physical Bridge Note ---
Date of Service November 10, 2021 History & Physical Bridge Note I have examined the patient, reviewed the History & Physical and in the interval since the performance of the History & Physical I have noted the following changes of clinical significance: no changes noted
[2021-11-10] MEDS ORDERED: ceFAZolin 330 MG/ML 1 GM VIAL ONE ×2 (11:00→11:42)
[2021-11-10] MEDS ORDERED: LIDOCAINE 2% 2 ML VIAL/AMP(20MG/ML) INFIL ONE (11:05)
[2021-11-10] MEDS ORDERED: PROPOFOL IV EMULSION 10 MG/ML 20 ML VIAL IV ONE ×2 (11:43→11:56)
[2021-11-10] MEDS ORDERED: fentaNYL citrate 100 MCG/2 ML VIAL ONE (11:55)
[2021-11-10] MEDS ORDERED: BUPIVACAINE 0.5 % 5 MG/1 ML MPF 30ML VIAL ONE (12:08)
[2021-11-10] MEDS ORDERED: ceFAZolin 330 MG/ML 1 GM VIAL IR STA (12:33)
--- NOTE | 2021-11-10 12:54 | Hospitalist Progress Note ---
Date of Service November 10, 2021 Assessment & Plan (1) Sepsis: Plan: - Source most likely diabetic foot wound/osteomyelitis in one or both feet/ankle. HD catheter does not appear infected. Wound cultures obtained on 10/31 at [facility], currently growing MRSA and Proteus. Had been started on Bactrim on 11/01, doxycycline on 11/02, and Levaquin on 11/04. - MRI right foot on 11/06 with concern for early osteomyelitis in the lateral base of the 5th metatarsal. - MRI left foot on 11/06 without signs for osteomyelitis - Started on vancomycin and Rocephin in ED - Switched to vanc/Zosyn - Switched to vanc/ceftriaxone to follow prior cultures on 11/09. - Blood culture sent, urine culture from yesterday at [facility] pending. UA collected here, with reflex for culture. - Consulted vascular surgery and orthopedics to evaluate and discuss need for further intervention. - Vascular surgery says no immediate procedures warranted. - Patient is adamantly opposed to amputation. Discussed with orthopedics today; Dr. Naqvi will debride today. - ID consulted and saw the patient - Note upload pending. (2) PAD (peripheral artery disease): Plan: Severe PAD based on clinical exam and bilateral lower extremity arterial Dopplers showing advanced peripheral vascular disease with multifocal bilateral vascular occlusions. - Dr. Pablo consulted as above. - Pending attending consultation. - Per previous notes, patient strongly opposed to amputation. (3) Ischemic cardiomyopathy: Plan: Echo in August with EF 30-35%, septal akinesis, inferobasal akinesis, moderate global hypokinesis of left ventricle. Elevated RVSP 40-50 mmHg. - Presently appears euvolemic; likely management with HD. - Continue home statin; not on beta-noel or ACEi possibly due to low BP given her midodrine on HD days (4) ESRD (end stage renal disease) on dialysis: Plan: Dialysis at [facility] , completed full treatment today without complications. - Consulted [facility] - HD on 11/08. (5) Metabolic encephalopathy: Plan: 2/2 to sepsis. Had difficultly recalling events, mixing up details. A+O x3 at baseline. - At baseline by 11/07 (6) Aortic stenosis: Plan: Moderate to severe on echo in August. - Maintain adequate volume status. - Should follow up with cardiology outpt for this. (7) Diabetic peripheral neuropathy: Plan: A1c was 9.4% in October. - Continue Lantus 20 u HS with SSI. (Lowered from 30 units HS for hypoglycemia t he morning of 11/07) - BSs in last 24 hours: 100 - 150. - Diabetic diet. - Continue gabapentin for neuropathy. (8) Anemia in chronic renal disease: Plan: Iron studies in August showed normal serum iron, B12, and folate. Hgb 11.5, stable, without evidence of acute bleed. - Follow on AM CBC. (9) Coronary artery disease: Plan: Chronic, stable. Unclear history, did have wall motion abnormalities on echo in August 2021. - No acute needs. - Continue statin, no longer on beta-noel or ACEi/ARB due to hypotension. (10) Depression: Plan: - Continue Cymbalta 30 mg daily. (11) Hypothyroidism: Plan: TSH was 4.6 this admission. - Continue levothyroxine 88 mcg daily. (12) Chronic respiratory failure with hypoxia: Plan: Reportedly uses 2L NC at baseline, however has been on RA in ED with SpO2 > 93%. - Monitor (13) DVT prophylaxis: Plan: SCDs - Hold heparin for procedure today. Will start tomorrow if approved by ortho. Admission and Anticipated Discharge Date Admission Date: November 06, 2021 Subjective No major issues today. She is pretty calm about surgery. No major pain in the legs. Reports no fevers/chills, chest pain, shortness of breath, abdominal pain, nausea, or vomiting. Physical Exam Constitutional: WD/WN, vitals as above Eyes: EOM intact bilaterally; no conjunctival abnormality ENMT: external ear and nose normal, oropharynx normal Neck: trachea midline, no thyromegaly normal visual inspection Respiratory: normal respiratory effort, lungs clear to auscultation no respiratory distress Cardiovascular: RRR, no murmur, no edema Gastrointestinal (Abdomen): Inspection/Auscultation: abdomen normal to inspection; abdomen not distended Musculoskeletal: no cyanosis or clubbing, extremities motor strength 5/5 Skin: + ulcer (On both legs. No purulence noted.) Neurologic: moves all extremities and awake Psychiatric: Orientation: alert, oriented to person and cooperative Results & Data Results & Data (MN) Vital Signs (Past 12 Hours) Vital Signs Temp Pulse Pulse Pulse Resp BP Pulse Ox 11/10/21 10:15 97 H 11/10/21 08:03 36.7 C 99 H 16 155/83 H 94 11/10/21 03:05 36.5 C 96 H 16 136/73 97 PG Care Time/CCT Total # of Minutes Spent Total Time Spent with Patient: Total time spent is greater than 50% in coordination of care (as documented) at patient's floor/unit and/or counseling patient: Coding Level of Care Code 90560 Subseq Hosp Care Lvl 2 Diagnoses Sepsis A41.9 Sepsis acute organ dysfunction status: unspecified Sepsis type: sepsis due to unspecified organism PAD (peripheral artery disease) I73.9 Ischemic cardiomyopathy I25.5 ESRD (end stage renal disease) on dialysis N18.6; Z99.2 Metabolic encephalopathy G93.41 Aortic stenosis I35.0 Diabetic peripheral neuropathy E11.42 Anemia in chronic renal disease N18.9; D63.1 Coronary artery disease I25.10 Depression F32.A Hypothyroidism E03.9 Chronic respiratory failure with hypoxia J96.11 DVT prophylaxis Z29.9 (1) Sepsis Sepsis acute organ dysfunction status: unspecified Sepsis type: sepsis due to unspecified organism Qualified Code(s): A41.9 - Sepsis, unspecified organism
--- NOTE | 2021-11-10 13:06 | Post Operative Brief Note ---
Immediate Post Op Note v1 Date of Surgery November 10, 2021 Pre & Post Diagnosis Operation Date: 11/10/21 12:00 Pre-Op Diagnosis: 1. Right foot osteomyelitis calcaneus 2. Osteomyelitis right fifth metatarsal base 3. Right posterior heel ulcer 1.0 x 1.0 x 1.2 cm 4. Right lateral heel ulcer 2.0 x 1.0 x 1.2 cm 5. Right fifth metatarsal base ulcer 6.0 x 4.0 x 0.9 cm 6. Left foot osteomyelitis calcaneus 7. Left foot osteomyelitis great toe 8. Left heel ulcer 8.0 x 4.0 x 0.3 cm Post-Op Diagnosis: 1. Right foot osteomyelitis calcaneus 2. Osteomyelitis right fifth metatarsal base 3. Right posterior heel ulcer 1.0 x 1.0 x 1.2 cm 4. Right lateral heel ulcer 2.0 x 1.0 x 1.2 cm 5. Right fifth metatarsal base ulcer 6.0 x 4.0 x 0.9 cm 6. Left foot osteomyelitis calcaneus 7. Left foot osteomyelitis great toe 8. Left heel ulcer 8.0 x 4.0 x 0.3 cm 9. Septic tenosynovitis left peroneus brevis tendon I identified the patient and participated in the time-out.: Yes Procedure Operation Date: 11/10/21 12:00 Actual Procedures p 1. Right foot exostectomy calcaneus, 2. Right foot exostectomy fifth metatarsal base, 3. Irrigation and debridement ulcer posterior right heel 1.0 x 1.0 x 1.2 cm, 4. Irrigation debridement right lateral heel ulcer 2.0 x 1.0 x 1.2 cm, 5. Irrigation debridement right fifth metatarsal base ulcer 6.0 x 4.0 x 0.9 cm, 6. Left foot partial calcanectomy, 7. Left foot amputation distal phalanx great toe, 8. Irrigation debridement left heel ulcer 8.0 x 4.0 x 0.3 cm , 9. Tenosynovectomy and partial resection right peroneus brevis,*All irrigation and debridement noted above are including skin/dermis/subcutaneous fat/fascia unless otherwise noted Ricky Naqvi DO Surgeon Nolberto Naqvi DO Health Assessment And Treatment Teacher Sofía Parks PA-C Estimated Blood Loss 10 Findings Consistent with Post-Op Diagnosis Specimens Right calcaneus aerobic, anaerobic, gram stain Right calcaneus bone for pathology specimen Right base fifth metatarsal bone for pathology specimen Left partial calcanectomy need for pathology specimen Left great toe distal phalanx amputation for pathology specimen Anesthesia Type MAC Regional Complications none Disposition Accompanied Patient To Recovery: Yes
--- NOTE | 2021-11-10 13:11 | Anesthesiology Progress Note ---
Date of Service November 10, 2021 Anesthesia Post Procedure Vital Signs Vital Signs: Temp Pulse Pulse Pulse Pulse Resp BP 11/10/21 10:15 97 H 11/10/21 08:03 98.1 F 99 H 16 11/10/21 03:05 97.7 F 96 H 16 11/09/21 23:02 98.2 F 93 H 16 11/09/21 22:10 101 H 11/09/21 19:05 98.1 F 100 H 16 11/09/21 16:22 99 H 11/09/21 15:54 98.1 F 101 H 16 129/76 BP Pulse Ox 11/10/21 10:15 11/10/21 08:03 155/83 H 94 11/10/21 03:05 136/73 97 11/09/21 23:02 141/77 H 95 11/09/21 22:10 11/09/21 19:05 108/69 97 11/09/21 16:22 11/09/21 15:54 94 Transfer of Care Handoff Completed per policy Notes Mental Status: alert / awake / arousable and participated in evaluation Patient Amnestic to Procedure: Yes Nausea / Vomiting: adequately controlled Pain: adequately controlled Airway Patency, RR, SpO2: stable & adequate BP & HR: stable & adequate Hydration State: stable & adequate Anesthetic Complications: no major complications apparent and Pt Satisfied with anesthetic care
[2021-11-10] MEDS ORDERED: METOCLOPRAMIDE HCL INJ 5 MG/ML 2 ML VIAL IV PRN (13:12)
[2021-11-10] MEDS ORDERED: bisacodyL 10 MG SUPP PR PRN (13:12)
[2021-11-10] MEDS ORDERED: NALOXONE HCL 0.4 MG/1 ML VIAL/CARP IV PRN (13:12)
[2021-11-10] MEDS: SODIUM CHLORIDE 0.9% 1000ML 1,000 ML IV SCH ×2 (14:40→20:57)
[2021-11-10] MEDS ORDERED: VANCOMYCIN HCL 500 MG in 0.9 % SODIUM CHLORIDE 100 ML IV ONE (16:00)
[2021-11-10] MEDS: traMADol HCL 50 MG TABLET PO PRN (16:27)
[2021-11-10] MEDS: ATORVASTATIN 40 MG TAB PO SCH (20:00)
[2021-11-10] MEDS: GABAPENTIN 100 MG CAP PO SCH (20:01)
[2021-11-10] MEDS: LANTUS PER UNIT CHARGE SQ SCH (20:14)
--- NOTE | 2021-11-10 21:30 | Operative Report (OR) ---
DATE OF PROCEDURE: 11/10/2021. PREOPERATIVE DIAGNOSES: 1. Right foot osteomyelitis of the calcaneus. 2. Osteomyelitis of the right fifth metatarsal base. 3. Right posterior heel ulcer, 1.0 x 1.0 x 1.2 cm. 4. Right lateral heel ulcer, 2.0 x 1.0 x 1.2 cm. 5. Right fifth metatarsal base ulcer, 6.0 x 4.0 x 0.9 cm. 6. Left foot osteomyelitis of the calcaneus. 7. Left foot osteomyelitis of the great toe. 8. Left heel ulcer, 8.0 x 4.0 x 0.3 cm. POSTOPERATIVE DIAGNOSES: 1. Right foot osteomyelitis of the calcaneus. 2. Osteomyelitis of the right fifth metatarsal base. 3. Right posterior heel ulcer, 1.0 x 1.0 x 1.2 cm. 4. Right lateral heel ulcer, 2.0 x 1.0 x 1.2 cm. 5. Right fifth metatarsal base ulcer, 6.0 x 4.0 x 0.9 cm. 6. Left foot osteomyelitis of the calcaneus. 7. Left foot osteomyelitis of the great toe. 8. Left heel ulcer, 8.0 x 4.0 x 0.3 cm. 9. Septic tenosynovitis of the left peroneus brevis tendon. PROCEDURE: 1. Right foot exostectomy of the calcaneus. 2. Right foot exostectomy, fifth metatarsal base. 3. Irrigation and debridement, ulcer, right posterior heel 1.0 x 1.0 x 1.2 cm. 4. Irrigation and debridement, right lateral heel ulcer, 2.0 x 1.0 x 1.2 cm. 5. Irrigation and debridement of right fifth metatarsal base ulcer 6.0 x 4.0 x 0.9 cm. 6. Left foot partial calcanectomy. 7. Left foot amputation, distal phalanx great toe. 8. Irrigation and debridement, left heel ulcer 8.0 x 4.0 x 0.3 cm. 9. Tenosynovectomy and partial resection, right peroneus brevis tendon. All irrigation and debridement noted above ulcers are including skin/dermis/subcutaneous tissue/fasci a unless otherwise noted. SURGEON: Nolberto Naqvi DO. INSTRUMENT TESTER: Sofía Parks PA-C who was present for patient positioning, sterile prep and drape, management of retractors and instruments. He was present through the critical portions of the case in cluding wound closure, application of sterile dressing and transport of the patient to recovery. ANESTHESIA: General, regional. SPECIMENS: 1. Right calcaneus aerobic, anaerobic, Gram stain. 2. Right calcaneus bone for pathology specimen. 3. Right base of the fifth metatarsal bone for pathology specimen. 4. Left partial calcanectomy for pathology specimen. 5. Left great toe distal phalanx amputation for pathology specimen. DRAINS: None. COMPLICATIONS: None. BLOOD LOSS: 10 mL. PERTINENT HISTORY: This is a 71-year-old female well known to the Orthopedic Service, who has had ch ronic progressive and worsening peripheral vascular disease with diabetic neuropathy, subsequent form ation of diabetic neuropathic ulcerations, bilateral feet with the sizes noted above. She had prior partial calcanectomy of the right calcaneus with previous debridement. She has had improving course; however, developed other ulcerations on the right foot, which progressively worsened along with ulce rations and osteomyelitis of the left foot, which progressively worsened, confirmed with MRI. The MR I for the left calcaneus provided evidence for periosteal reaction and early osteomyelitis of the aissatou l and upon clinical exam, noted to have features consistent with bridging calcaneal osteomyelitis mat ched to the patient's clinical course. The patient was then scheduled for surgery for bilateral feet with the above-noted procedures as indicated. All potential risks, benefits, complications, alternatives, rehab potential for incomplete relief of symptoms, need for further surgery, DVT, PE, , persistent pain, swelling, scarring, weakness, ne urovascular injury, wound complications, need for further amputation was discussed with the patient. The patient decided to proceed with the procedure as indicated. The patient had expressed complete refusal any consideration of below-knee amputation with multiple discussions over the last 2-3 months with multiple providers including Dr. Naqvi, the index surgeon in this procedure. The patient unde rstands that the best case scenario may be 6 months to healing of her lower extremity ulcerations; ho wever, the likelihood is that she will have further complications due to her severe PVD, diabetic yahir ropathy and generally poor health. DESCRIPTION OF PROCEDURE: The patient was taken to the operative suite and placed supine on the oper ating table. After review of consent and identification of proper site, the patient was sedated. Aurae grubbs was placed in the left lateral decubitus position. All bony prominences were properly padded and p rotected. She was placed over a beanbag. The beanbag was then suctioned to stabilize her position. All bony prominences were then re-addressed. Axillary roll was placed and then bilateral lower extr emities were then sterilely prepped and draped in usual fashion. Next, after surgical timeout was performed, an Esmarch bandage was used to partially exsanguinate the right lower extremity to the level of the ankle and the Esmarch bandage was applied over sterile douglas gical towel at the level of the ankle. Next, right posterior heel ulcer was addressed first measured to be 1.0 x 1.0 x 1.2 cm and a right lateral heel ulcer measuring 2.0 x 1.0 x 1.2 cm noted. Sharp de bridement commenced of both ulcers with 15-blade scalpel and curette and the posterior heel ulcer was curetted deep to bone and calcaneal specimen was obtained, aerobic, anaerobic, Gram stain. Next, a curette was then used to curettage the right calcaneus bone along with use of a pituitary filipe geur to resect softened bone within the right calcaneus. Next, the ulceration was then debrided incl uding skin, dermis, subcutaneous fat and fascia. Next, the right lateral heel ulcer debrided with a 15-blade scalpel and curette down to bleeding tissue. Measurements noted above. This included debri laura of skin/dermis, subcutaneous fat and fascia. Next, the right fifth metatarsal base ulceration was measured and noted to be 6.0 x 4.0 x 0.9 cm and was then sharply debrided using 15-blade scalpel and curettes of bleeding tissue. Debridement included skin/dermis/subcutaneous fat/fascia. The base of fifth metatarsal was also noted to be suppurative tenosynovitis of the peroneus brevis tendon. T enosynovectomy of the peroneus brevis was then performed with a rongeur and then partial fibers of th e peroneus brevis were then resected using a 15-blade scalpel as she had appearance of necrosis and d issolution. Next, periosteal flap and fascia was then elevated from the base of the fifth metatarsal with a 15-blade scalpel. Tissue was carefully retracted with Lan rakes and then a sagittal saw was then used to resect the markedly softened osteomyelitis and bone of the fifth metatarsal base with a sagittal saw. The bone was then removed and then sent for pathological specimen. Next, pulsatile lavage 3 L with Ancef additive was then used to lavage the calcaneus, the ulcerations of the heel and the ulceration of the lateral foot until clear. Next, the heel ulcerations were the n loosely closed using 2-0 nylon and the deep tissue flap over the fifth metatarsal resection was the n closed using buried interrupted 2-0 Vicryl and the tissue was closed using 2-0 nylon sutures loosel y to approximate tissues. Next, local anesthetic was injected around the ulceration sites to provide reduction and postoperative pain. Next, a sterile compressive dressing was applied consisting of Xe roform gauze, sterile 4 x 4's, sterile cast padding, and an Luis wrap. Next, attention was directed toward the left foot. The left foot was then partially exsanguinated fr om the ankle proximal using Esmarch bandage, and an Esmarch tourniquet applied over sterile surgical towel at the level of the left ankle. Next, the ulceration of the left heel was measured 8.0 x 4.0 x 0.3 cm, which was then sharply debride d with a 15-blade scalpel, removing eschar, slough and necrotic tissue. A curette was then used to c urettage local tissue. This included debridement of the skin/dermis/subcutaneous fat and fascia. Next, a 15 blade was then used to sharply split the posterior calcaneal fat pad down to the level of bone. A 15-blade was used to easily pass into the calcaneal bone consistent with suspicion that oste omyelitis is beginning at the posterior calcaneus. Grossly softened consistent with bone infection b ased on poor consistency and local necrosis of the subdermal fat and fascia adjacent to the periosteu m, which was grossly necrotic as well. Next, a 15-blade scalpel was used to elevate full thickness f laps down to the level of the Achilles tendon. Achilles tendon was then split and then partially res ected the terminal fibers. Full-thickness skin flaps were developed to reveal the calcaneal posterio r tuberosity Celaya retractors were applied to retract soft tissue flap and then a sagittal saw was then used to perform a partial calcanectomy of the left foot. This calcaneal bone fragment was then sent for specimen for pathological assessment. The site was then copiously irrigated with pulse lava ge 2 L with Ancef additive until clear. Next, the top gloves were changed and the contour of the calcaneal tuberosity was then reshaped with a rongeur and bone rasp. This was then followed by closure of the deep soft tissue with 2-0 Vicryl a nd the skin was closed gently with 2-0 nylon sutures to reapproximate in a low tension fashion. Next, a 15 blade scalpel was then used to create a fish-mouth incision over the distal phalanx of the left great toe. The 15 blade scalpel incision was then carried through the dorsal extensor into the joint capsule. Circumferential dissection was performed around the interphalangeal joint of the gre at toe and then the distal phalanx was then amputated leaving a full-sized plantar flap. Next, a fis hmouth flap was then revised with a 15-blade scalpel. The distal aspect of the proximal phalanx was then smoothed and contoured with a sagittal saw and a rongeur. Next, the site was irrigated with 1 L of saline with Ancef using a pulse lavage. The deep tissue flap was closed using 2-0 Vicryl. The s kin was closed using 2-0 nylon. Local anesthetic was injected around the left heel and at the base o f the great toe of left foot for postoperative pain control. Next, a sterile compressive dressing wa s applied to the left foot including Xeroform gauze, sterile 4 x 4's, sterile cast padding, ABD pad, and Luis wrap. Both left and right tourniquets were released. The patient was awakened, rolled supin e, taken to recovery in stable condition. Job ID: [id number]
[2021-11-10] MEDS ORDERED: SODIUM CHLORIDE 0.9% 1000ML 500 ML IV ONE (22:04)
[2021-11-10] MEDS: ACETAMINOPHEN 1000 MG/100 ML IV IV PRN (22:44)
[2021-11-11] MEDS ORDERED: SODIUM CHLORIDE 0.9% 1000ML 500 ML IV ONE ×2 (00:17→01:19)
[2021-11-11] MEDS: MENTHOL-ZINC OXIDE 360 APPLN/120 GM TUBE EXT SCH ×3 (00:31→16:54)
[2021-11-11] MEDS ORDERED: ALBUMIN 25% 100 mL 25 GM/100 ML VIAL IV ONE (01:19)
[2021-11-11] MEDS: LEVOTHYROXINE SODIUM 88 MCG TABLET PO SCH (05:39)
[2021-11-11] MEDS ORDERED: SODIUM CHLORIDE 0.9% 1000ML 1,000 ML IV PRN ×2 (07:00)
[2021-11-11 07:14] LABS: Hematocrit (blood only) 29.4 % (34.1-44.9); Hemoglobin 9.4 g/dl (12.0-16.0); Mean Corpuscular Hemoglobin 29.8 pg (25.0-34.0); Mean Corpuscular Volume 93.3 fL (80.0-100.0); Mean Platelet Volume 9.6 fL (9.4-12.3); Platelet Count 251 K/uL (130-400); RDW Coefficient of Variation 15.7 % (11.5-14.5); RDW Standard Deviation 53.1 fL (36.4-46.3); Red Blood Count 3.15 M/uL (3.93-5.22); White Blood Count 10.11 K/ul (4.8-10.8)
[2021-11-11 07:33] LABS: BUN Creatinine Ratio 11.5 (10-20); Calcium 8.3 mg/dl (8.5-10.1); Creatinine Clr Calc Pharmacy 12.7 ml/min; Est GFR (African American) 11.5 ml/min; Est GFR (Non-African American) 9.9 ml/min; Magnesium 1.8 mg/dl (1.7-2.4); Potassium 3.3 mmol/L (3.5-5.1)
[2021-11-11] MEDS: traMADol HCL 50 MG TABLET PO PRN (07:40)
[2021-11-11] MEDS: DULoxetine HCL 30 MG CAP PO SCH (07:41)
[2021-11-11] MEDS: NEPHROCAPS PO SCH (07:41)
[2021-11-11] MEDS: cefTRIAXone SODIUM 2,000 MG in DEXTROSE 5% 50 ML IV SCH (07:41)
[2021-11-11] MEDS: PROSOURCE NO CARB 30 ML/PKT PO SCH (07:42)
[2021-11-11] MEDS: SEVELAMER HCL 800 MG TABLET PO SCH ×3 (07:42→16:58)
[2021-11-11] MEDS: PANTOprazole 40 MG TAB PO SCH ×2 (07:42→21:49)
[2021-11-11] MEDS: DOCUSATE SODIUM 100 MG CAP PO SCH ×2 (07:43→21:48)
[2021-11-11] MEDS: MIDODRINE HCL 10 MG TAB PO SCH (07:43)
[2021-11-11] MEDS: SACCHAROMYCES BOULARDII 250 MG CAP PO SCH ×2 (07:44→21:49)
[2021-11-11] MEDS: INSULIN ASPART PER UNIT SC SCH ×4 (07:55→22:12)
--- NOTE | 2021-11-11 09:12 | Pharmacy Report ---
Pharmacy PK ABX Note - Date of Service November 11, 2021 - Assessment and Plan Assessment 71 year old F receiving IV Vancomycin and ceftriaxone for possible osteomyelitis of bilateral foot wounds. * PMHx significant for ESRD on HD MWF, T2DM. From [facility]. Recent hospitalization in August 2021 for similar issue. Recent abx include: doxycycline, bactrim, and levofloxacin. * R foot MRI report states: "concerning for an early osteomyelitis". L foot MRI reports states: "No MRI evidence for acute osteomyelitis". * 10/31/21 foot culture (unsure which foot???) from [facility] grew MRSA (Vanc TSERING = 2) and Proteus mirabilis. Blood cultures no growth x 24hrs. * s/p I&D of both feet, R foot exostectomy fifth metatarsal base, L foot amputation distal phalanx great toe, L foot partial calcanectomy on 11/10/21 Vancomycin * Random AM level in goal range * Patient is scheduled for HD today * Will re-dose vanco after HD Plan * Vanco 750 mg IV x1 * Random level ordered for 11/13, prior to next HD session
--- NOTE | 2021-11-11 10:38 | Communication Note ---
Date of Service: November 11, 2021 Pt discussed at length with Dr Pablo this AM, and BLE arterial US images reviewed from 08/23. Pt is not ambulatory. She is not a candidate for revascularization. Please call if needed.
--- NOTE | 2021-11-11 10:46 | Dialysis Progress Note ---
Date of Service November 11, 2021 Assessment & Plan Admission and Anticipated Discharge Date Admission Date: November 06, 2021 Subjective Assessment & Plan (1) ESRD (end stage renal disease) on dialysis: Plan: ESRD on dialysis Thursday and Thursday --Electrolytes ok infact low K -Dialyze TODAY as Rxed, keep SBP > 100 -Please continue her on outpatient medications. (2) Diabetic foot ulcer: Plan: - Chronic foot ulcers- Renally dose antibiotics, timing it with the dialysis treatment. - Refused surgery. Subjective Feels her legs are doing fine. So far doing fine with Dialysis. CVC worked fine. Reports no fevers/chills, chest pain, shortness of breath, abdominal pain, nausea, or vomiting. Review of Systems Review of Systems: Constitutional-Alert cooperative,Comfortable,Depressed No shortness of breath Physical Exam Physical Exam: General: awake, alert, no apparent distress Head: Normocephalic, atraumatic ENT: PERRL, EOMI, mucous membranes moist Chest: Clear to auscultation, on room air, no adventitious breath sounds Cardiac: Regular rate and rhythm, no murmur, no JVD Abdominal: soft, nontender to palpation, no rebound, guarding or tenderness Extremities: Both Foot heavily bandaged Neuro: AAO x 3 Results & Data ([facility]) Vital Signs (Past 12 Hours) Vital Signs Temp Pulse Pulse Pulse Resp BP BP 11/11/21 10:15 92 H 144/82 H 11/11/21 10:06 97 H 144/78 H 11/11/21 09:55 37.1 C 101 H 11/11/21 08:00 36.9 C 108 H 16 146/80 H 11/11/21 03:40 98 H 16 105/61 11/11/21 03:08 36.7 C 100 H 20 92/57 L 11/11/21 01:03 104 H 16 81/46 L 11/11/21 01:00 104 H 16 81/46 L 11/10/21 22:47 37.4 C 119 H 93/56 L Pulse Ox 11/11/21 10:15 11/11/21 10:06 11/11/21 09:55 11/11/21 08:00 11/11/21 03:40 97 11/11/21 03:08 99 11/11/21 01:03 97 11/11/21 01:00 97 11/10/21 22:47 96
--- NOTE | 2021-11-11 14:17 | Hospitalist Progress Note ---
Date of Service November 11, 2021 Assessment & Plan (1) Sepsis: Plan: - Source diabetic foot wound/osteomyelitis in one or both feet/ankle. HD catheter does not appear infected. W[facility], currently growing MRSA and Proteus. Had been started on Bactrim on 11/01, doxycycline on 11/02, and Levaquin on 11/04. - MRI right foot on 11/06 with concern for early osteomyelitis in the lateral base of the 5th metatarsal. - MRI left foot on 11/06 without signs for osteomyelitis - Started on vancomycin and Rocephin in ED - Switched to vanc/Zosyn - Switched back to vanc/ceftriaxone to follow prior cultures on 11/09. - Blood cultures - NGTD on 11/11. - Consulted vascular surgery and orthopedics - Appreciate recs. - Vascular surgery said not a candidate for revascularization. - Patient is adamantly opposed to amputation. Dr. Naqvi debrided on 11/10. Cultures pending. - ID consulted and saw the patient - Note reviewed. Recommend continuing IV antibiotics for now and await cultures. Can reach out after that. ID note clearly indicate feet are not salvagable and ongoing infection will be an issue. Despite this, patient still not willing to undergo amputation. (2) PAD (peripheral artery disease): Plan: Severe PAD based on clinical exam and bilateral lower extremity arterial Dopplers showing advanced peripheral vascular disease with multifocal bilateral vascular occlusions. - Dr. Pablo consulted as above. - No intervention. - Per previous notes, patient strongly opposed to amputation. (3) Ischemic cardiomyopathy: Plan: Echo in August with EF 30-35%, septal akinesis, inferobasal akinesis, moderate global hypokinesis of left ventricle. Elevated RVSP 40-50 mmHg. - Presently appears euvolemic; management with HD. - Continue home statin; not on beta-noel or ACEi possibly due to low BP given her midodrine on HD days (4) ESRD (end stage renal disease) on dialysis: Plan: Dialysis at [facility] , completed full treatment today without complications. - Consulted [facility] [address] nephrology - HD on 11/08. (5) Metabolic encephalopathy: Plan: 2/2 to sepsis. Had difficultly recalling events, mixing up details. A+O x3 at baseline. - At baseline by 11/07 (6) Aortic stenosis: Plan: Moderate to severe on echo in August. - Maintain adequate volume status. - Should follow up with cardiology outpt for this. (7) Diabetic peripheral neuropathy: Plan: A1c was 9.4% in October. - Continue Lantus 20 u HS with SSI. (Lowered from 30 units HS for hypoglycemia the morning of 11/07) - BSs in last 24 hours: 100 - 150. - Diabetic diet. - Continue gabapentin for neuropathy. (8) Anemia in chronic renal disease: Plan: Iron studies in August showed normal serum iron, B12, and folate. Hgb 11.5, stable, without evidence of acute bleed. - Follow on AM CBC. (9) Coronary artery disease: Plan: Chronic, stable. Unclear history, did have wall motion abnormalities on echo in August 2021. - No acute needs. - Continue statin, no longer on beta-noel or ACEi/ARB due to hypotension. (10) Depression: Plan: - Continue Cymbalta 30 mg daily. (11) Hypothyroidism: Plan: TSH was 4.6 this admission. - Continue levothyroxine 88 mcg daily. (12) Chronic respiratory failure with hypoxia: Plan: Reportedly uses 2L NC at baseline, however has been on RA in ED with SpO2 > 93%. - Monitor (13) DVT prophylaxis: Plan: Heparin 5,000 units SQ Q12h Admission and Anticipated Discharge Date Admission Date: November 06, 2021 Subjective Having some pain in the feet. Seen after dialysis, and she is quite tired, but otherwise has no complaints. Reports no fevers/chills, chest pain, shortness of breath, abdominal pain, nausea, or vomiting. Physical Exam Constitutional: WD/WN, vitals as above Eyes: EOM intact bilaterally; no conjunctival abnormality ENMT: external ear and nose normal, oropharynx normal Neck: trachea midline, no thyromegaly normal visual inspection Respiratory: normal respiratory effort, lungs clear to auscultation no respiratory distress Cardiovascular: RRR, no murmur, no edema Gastrointestinal (Abdomen): Inspection/Auscultation: abdomen normal to inspection; abdomen not distended Musculoskeletal: no cyanosis or clubbing, extremities motor strength 5/5 Skin: + ulcer (Bilateral feet now bandaged) Neurologic: moves all extremities and awake Psychiatric: Orientation: alert, oriented to person and cooperative Results & Data Results & Data ([facility]) Vital Signs (Past 12 Hours) Vital Signs Temp Pulse Pulse Resp BP BP Pulse Ox 11/11/21 13:34 36.9 C 104 H 18 98/60 L 96 11/11/21 13:18 36.4 C L 65 137/68 11/11/21 13:00 76 126/71 11/11/21 12:40 85 140/84 11/11/21 12:20 94 H 113/76 11/11/21 12:00 86 166/88 H 11/11/21 11:40 82 150/86 H 11/11/21 11:20 63 178/74 H 11/11/21 11:00 87 155/82 H 11/11/21 10:40 87 142/75 H 11/11/21 10:20 92 H 144/82 H 11/11/21 10:15 97 H 144/82 H 11/11/21 10:06 97 H 144/78 H 11/11/21 09:55 37.1 C 101 H 11/11/21 08:00 36.9 C 108 H 16 146/80 H 11/11/21 03:40 98 H 16 105/61 97 11/11/21 03:08 36.7 C 100 H 20 92/57 L 99 PG Care Time/CCT Total # of Minutes Spent Total Time Spent with Patient: Total time spent is greater than 50% in coordination of care (as documented) at patient's floor/unit and/or counseling patient: Coding Level of Care Code 61454 Subseq Hosp Care Lvl 3 Diagnoses Sepsis A41.9 Sepsis acute organ dysfunction status: unspecified Sepsis type: sepsis due to unspecified organism PAD (peripheral artery disease) I73.9 Ischemic cardiomyopathy I25.5 ESRD (end stage renal disease) on dialysis N18.6; Z99.2 Metabolic encephalopathy G93.41 Aortic stenosis I35.0 Diabetic peripheral neuropathy E11.42 Anemia in chronic renal disease N18.9; D63.1 Coronary artery disease I25.10 Depression F32.A Hypothyroidism E03.9 Chronic respiratory failure with hypoxia J96.11 DVT prophylaxis Z29.9 (1) Sepsis Sepsis acute organ dysfunction status: unspecified Sepsis type: sepsis due to unspecified organism Qualified Code(s): A41.9 - Sepsis, unspecified organism
[2021-11-11] MEDS ORDERED: VANCOMYCIN HCL 750 MG in SODIUM CHLORIDE 0.9% 250 ML IV SCH (16:00)
--- NOTE | 2021-11-11 17:42 | Orthopedic Progress Note ---
Date of Service November 11, 2021 Assessment & Plan (1) Diabetic foot ulcer: Plan: Postop day 1 status post I&D of right and left diabetic foot ulcers. Antibiotics as per med service. Follow cultures. Patient will need to be bed to chair at this point in time. DVT prophylaxis-Heparin SQ twice daily, SCDs. Pain management as written. Plan for dressing change tomorrow. Admission and Anticipated Discharge Date Admission Date: November 06, 2021 Subjective Postop day 1 Patient sitting up in her bed eating her dinner. States that she was having so me pain in her left foot compared to the right even though she has neuropathy. Pain medications are helping. She has no other complaints at this time. Physical Exam Physical Exam: Dressings are clean, dry, and intact bilaterally of the feet. Most of the toes are covered with gauze at this time. She is able to move the ankles with dorsiflexion and plantarflexion. Results & Data ([facility]) Vital Signs (Past 12 Hours) Vital Signs Temp Pulse Pulse Pulse Resp BP BP 11/11/21 15:47 36.9 C 103 H 18 105/57 L 11/11/21 15:10 103 H 11/11/21 13:34 36.9 C 104 H 18 98/60 L 11/11/21 13:18 36.4 C L 65 137/68 11/11/21 13:00 76 126/71 11/11/21 12:40 85 140/84 11/11/21 12:20 94 H 113/76 11/11/21 12:00 86 166/88 H 11/11/21 11:40 82 150/86 H 11/11/21 11:20 63 178/74 H 11/11/21 11:00 87 155/82 H 11/11/21 10:40 87 142/75 H 11/11/21 10:20 92 H 144/82 H 11/11/21 10:15 97 H 144/82 H 11/11/21 10:06 97 H 144/78 H 11/11/21 09:55 37.1 C 101 H 11/11/21 08:00 36.9 C 108 H 16 146/80 H Pulse Ox 11/11/21 15:47 93 11/11/21 15:10 11/11/21 13:34 96 11/11/21 13:18 11/11/21 13:00 11/11/21 12:40 11/11/21 12:20 11/11/21 12:00 11/11/21 11:40 11/11/21 11:20 11/11/21 11:00 11/11/21 10:40 11/11/21 10:20 11/11/21 10:15 11/11/21 10:06 11/11/21 09:55 11/11/21 08:00 (1) Diabetic foot ulcer Diabetes mellitus type: other specified (including TU) Diabetic foot ulcer location: unspecified part of foot Laterality: unspecified laterality Non- pressure ulcer stage: unspecified non-pressure ulcer stage Qualified Code(s): E13.621 - Other specified diabetes mellitus with foot ulcer; L97.509 - Non- pressure chronic ulcer of other part of unspecified foot with unspecified severity
[2021-11-11] MEDS: ATORVASTATIN 40 MG TAB PO SCH (21:47)
[2021-11-11] MEDS: GABAPENTIN 100 MG CAP PO SCH (21:48)
[2021-11-11] MEDS: HEPARIN SOD 5,000 UNIT/0.5 ML VIAL SQ SCH (21:54)
[2021-11-11] MEDS: LANTUS PER UNIT CHARGE SQ SCH (22:12)
[2021-11-11] MEDS: ACETAMINOPHEN 1000 MG/100 ML IV IV PRN (23:13)
[2021-11-12] MEDS: MENTHOL-ZINC OXIDE 360 APPLN/120 GM TUBE EXT SCH ×3 (04:36→17:01)
[2021-11-12] MEDS: LEVOTHYROXINE SODIUM 88 MCG TABLET PO SCH (05:41)
[2021-11-12 06:56] LABS: Hematocrit (blood only) 29.8 % (34.1-44.9); Hemoglobin 9.8 g/dl (12.0-16.0); Mean Corpuscular Hemoglobin 30.3 pg (25.0-34.0); Mean Corpuscular Hgb Conc 32.9 g/dL (32.0-36.0); Mean Corpuscular Volume 92.3 fL (80.0-100.0); Mean Platelet Volume 9.2 fL (9.4-12.3); Platelet Count 234 K/uL (130-400); RDW Coefficient of Variation 15.9 % (11.5-14.5); RDW Standard Deviation 52.5 fL (36.4-46.3); Red Blood Count 3.23 M/uL (3.93-5.22); White Blood Count 9.39 K/ul (4.8-10.8)
[2021-11-12 07:19] LABS: BUN Creatinine Ratio 10.5 (10-20); Calcium 8.5 mg/dl (8.5-10.1); Creatinine Clr Calc Pharmacy 18.3 ml/min; Est GFR (African American) 17.8 ml/min; Est GFR (Non-African American) 15.4 ml/min; Magnesium 1.7 mg/dl (1.7-2.4); Potassium 3.1 mmol/L (3.5-5.1)
[2021-11-12] MEDS: CARBOHYDRATES FOR HYPOGLYCEMIA PO PRN ×2 (07:49→08:14)
[2021-11-12] MEDS: PANTOprazole 40 MG TAB PO SCH ×2 (08:22→20:00)
[2021-11-12] MEDS: SEVELAMER HCL 800 MG TABLET PO SCH ×3 (08:22→17:07)
[2021-11-12] MEDS: SACCHAROMYCES BOULARDII 250 MG CAP PO SCH ×2 (08:22→20:00)
[2021-11-12] MEDS: NEPHROCAPS PO SCH (08:23)
[2021-11-12] MEDS: DOCUSATE SODIUM 100 MG CAP PO SCH ×2 (08:23→22:40)
[2021-11-12] MEDS: DULoxetine HCL 30 MG CAP PO SCH (08:23)
[2021-11-12] MEDS: HEPARIN SOD 5,000 UNIT/0.5 ML VIAL SQ SCH (08:23)
[2021-11-12] MEDS: INSULIN ASPART PER UNIT SC SCH ×4 (08:24→22:57)
[2021-11-12] MEDS: PROSOURCE NO CARB 30 ML/PKT PO SCH (08:24)
[2021-11-12] MEDS: cefTRIAXone SODIUM 2,000 MG in DEXTROSE 5% 50 ML IV SCH (12:04)
--- NOTE | 2021-11-12 13:38 | Orthopedic Progress Note ---
Date of Service November 12, 2021 Assessment & Plan (1) Diabetic foot ulcer: Plan: Postop day 2 status post 1. Right foot exostectomy of the calcaneus. 2. Right foot exostectomy, fifth metatarsal base. 3. Irrigation and debridement, ulcer, right posterior heel 1.0 x 1.0 x 1.2 cm. 4. Irrigation and debridement, right lateral heel ulcer, 2.0 x 1.0 x 1.2 cm. 5. Irrigation and debridement of right fifth metatarsal base ulcer 6.0 x 4.0 x 0.9 cm. 6. Left foot partial calcanectomy. 7. Left foot amputation, distal phalanx great toe. 8. Irrigation and debridement, left heel ulcer 8.0 x 4.0 x 0.3 cm. 9. Tenosynovectomy and partial resection, right peroneus brevis tendon. All irrigation and debridement noted above ulcers are including skin/dermis/subcutaneous tissue/fascia unless otherwise noted. Antibiotics as per med service. Follow cultures. Patient will need to be bed to chair at this point in time. DVT prophylaxis-Heparin SQ twice daily, SCDs. Pain management as written. Dressing changed today. Discharge planninguncertain at this time. Admission and Anticipated Discharge Date Admission Date: November 06, 2021 Subjective Postop day 2 Patient states she is doing well. There is no pain within the right foot. Her left foot has been given her some pain, particularly in the heel. Her oral pain medications decrease the pain to make it tolerable. Physical Exam Constitutional: WD/WN, vitals as above no acute distress Musculoskeletal: Right foot: The incision near the lateral aspect of the heel and the lateral aspect of the foot is well approximated. No drainage. There is no erythema. There is an eschar at the dorsal aspect of the foot that was stuck to the ABD pad and the eschar peeled off during dressing change. There is a mild amount of bloody drainage. No erythema. Stable, large callus at the dorsal aspect of the great toe. Left foot: Stable posterior heel ulcer with central sloughing. Mild erythema and maceration at the wound edges. No streaking. No obvious purulence. The incision at the great toe amputation site is well approximated and soft. No erythema. No drainage. Neurologic: + abnormal touch/pain/proprioception Psychiatric: A+Ox3, euthymic affect Speech: normal rate/rhythm/volume of speech Results & Data ([facility]) Vital Signs (Past 12 Hours) Vital Signs Temp Pulse Pulse Pulse Resp BP Pulse Ox 11/12/21 11:15 36.6 C 94 H 18 146/80 H 97 11/12/21 08:15 36.4 C L 92 H 18 139/68 93 11/12/21 07:30 89 11/12/21 02:35 36.4 C L 83 18 126/73 94 (1) Diabetic foot ulcer Diabetes mellitus type: other specified (including TU) Diabetic foot ulcer location: unspecified part of foot Laterality: unspecified laterality Non- pressure ulcer stage: unspecified non-pressure ulcer stage Qualified Code(s): E13.621 - Other specified diabetes mellitus with foot ulcer; L97.509 - Non- pressure chronic ulcer of other part of unspecified foot with unspecified s everity
--- NOTE | 2021-11-12 15:12 | Hospitalist Progress Note ---
Date of Service November 12, 2021 Assessment & Plan (1) Sepsis: Plan: - Source diabetic foot wound/osteomyelitis in one or both feet/ankle. HD catheter does not appear infected. Wound cultures obtained on 10/31 at [facility] growing MRSA and Proteus. Had been started on Bactrim on 11/01, doxycycline on 11/02, and Levaquin on 11/04. - MRI right foot on 11/06 with concern for early osteomyelitis in the lateral base of the 5th metatarsal. - MRI left foot on 11/06 without signs for osteomyelitis - Started on vancomycin and Rocephin in ED - Switched to vanc/Zosyn - Switched back to vanc/ceftriaxone to follow prior cultures on 11/09. - Blood cultures - NGTD on 11/11. - Consulted vascular surgery and orthopedics - Appreciate recs. No intervention warranted as pt bedbound - Vascular surgery said not a candidate for revascularization. - Patient is adamantly opposed to amputation. Dr. Naqvi debrided on 11/10. Cultures with Staph, awaiting sensitivities - ID consulted and saw the patient - Note reviewed. Recommend continuing IV antibiotics for now and await cultures. Can reach out after that. ID note clearly indicate feet are not salvageable and ongoing infection will be an issue. Despite this, patient still not willing to undergo amputation. Likely will go out on po Cpro 500mg po once daily and clinda 300mg po qid x 2 weeks as per ID. -post-op management as per Ortho (2) PAD (peripheral artery disease): Plan: Severe PAD based on clinical exam and bilateral lower extremity arterial Dopplers showing advanced peripheral vascular disease with multifocal bilateral vascular occlusions. - Dr. Pablo consulted as above. - No intervention. - Per previous notes, patient strongly opposed to amputation. -continue statin -is not on antiplatelet-due to h/o GI bleeding (3) Ischemic cardiomyopathy: Plan: Echo in August with EF 30-35%, septal akinesis, inferobasal akinesis, moderate global hypokinesis of left ventricle. Elevated RVSP 40-50 mmHg. - Presently appears euvolemic; management with HD. - Continue home statin; not on beta-noel or ACEi possibly due to low BP given her midodrine on HD days (4) ESRD (end stage renal disease) on dialysis: Plan: Dialysis at [facility] MondayWednesdayFriday, continues on such schedule here - Consulted [facility] nephrology appreciated (5) Metabolic encephalopathy: Plan: 2/2 to sepsis. Had difficultly recalling events, mixing up details. A+O x3 at baseline. - At baseline by 11/07 (6) Aortic stenosis: Plan: Moderate to severe on echo in August. - Maintain adequate volume status. - Should follow up with cardiology outpt for this. (7) Diabetic peripheral neuropathy: Plan: A1c was 9.4% in October. With hypoglycemia this AM reduce Lantus to 15 units hs continue Movolog SSI - Diabetic diet. - Continue gabapentin for neuropathy. (8) Anemia in chronic renal disease: Plan: Iron studies in August showed normal serum iron, B12, and folate. Hgb down to 9.8 likely some blood loss from surgery HD stable - Follow on AM CBC. (9) Coronary artery disease: Plan: Chronic, stable. Unclear history, did have wall motion abnormalities on echo in August 2021. - No acute needs. - Continue statin, no longer on beta-noel or ACEi/ARB due to hypotension. No longer on antiplatelet due to GI bleed as per custodial report (10) Depression: Plan: - Continue Cymbalta 30 mg daily. (11) Hypothyroidism: Plan: TSH was 4.6 this admission. - Continue levothyroxine 88 mcg daily. (12) Chronic respiratory failure with hypoxia: Plan: Reportedly uses 2L NC at baseline, however has been on RA in ED with SpO2 > 93%. - Monitor (13) DVT prophylaxis: Plan: Heparin 5,000 units SQ Q12h but pt refusing this Dispo-continued stya but downgrade to med/surg. Hopeful for dc to [facility] tomorrow Admission and Anticipated Discharge Date Admission Date: November 06, 2021 Anticipated date of discharge: 11/13/21 Subjective Pt has some pain in feet but is relieved with pain meds. Had one soft stool today. No CP, SOB, abd pain. No fevers. Dressings on feet changed today by Ortho Tele with NSR,1st degree AVB,rates 90s Review of Systems Review of Systems: All systems reviewed & are unremarkable except as noted in HPI & below Physical Exam Constitutional: WD/WN, vitals as above Eyes: + anicteric sclerae ENMT: external ear and nose normal, oropharynx normal Neck: trachea midline, no thyromegaly Respiratory: normal respiratory effort, lungs clear to auscultation Cardiovascular: Rate/Rhythm: regular rate and regular rhythm Heart Sounds: + murmur (2/6 STAN at RUSB) Extremities: no edema Chest (Breasts): Chest: normal inspection of chest Gastrointestinal (Abdomen): normal bowel sounds, soft, nontender, no hepatosplenomegaly Musculoskeletal: Extremities: + extremities abnormal to inspection (feet bilat dressings,not removed), no cyanosis and no clubbing Skin: no rashes, warm and dry Neurologic: moves all extremities and awake; no focal motor deficits Psychiatric: A+Ox3, euthymic affect Lymphatic: no lymphedema Results & Data Results & Data ([facility]) Vital Signs (Past 12 Hours) Vital Signs Temp Pulse Pulse Resp BP Pulse Ox 11/12/21 11:15 36.6 C 94 H 18 146/80 H 97 11/12/21 08:15 36.4 C L 92 H 18 139/68 93 11/12/21 07:30 89 Laboratory Results 11/12/21 11/12/21 11/12/21 Range/Units 11:29 08:29 08:14 WBC (4.8-10.8) K/ul RBC (3.93-5.22) M/uL Hgb (12.0-16.0) g/dl Hct (34.1-44.9) % MCV (80.0-100.0) fL MCH (25.0-34.0) pg MCHC (32.0-36.0) g/dL RDW Std Deviation (36.4-46.3) fL RDW Coeff of Juno (11.5-14.5) % Plt Count (130-400) K/uL MPV (9.4-12.3) fL Sodium (136-145) mmol/L Potassium (3.5-5.1) mmol/L Chloride (98-107) mmol/L Carbon Dioxide (21-32) mmol/L Anion Gap (3-11) BUN (6-23) mg/dl Creatinine (0.6-1.2) mg/dl Est Cr Clr Drug Dosing ml/min Est GFR ( Amer) ml/min Est GFR (Non-Af Amer) ml/min BUN/Creatinine Ratio (10-20) Glucose (70-99(Fasting)) mg/dl POC Glucose 177 H 78 69 L* (70-99) mg/dl Calcium (8.5-10.1) mg/dl Magnesium (1.7-2.4) mg/dl 11/12/21 11/12/21 11/12/21 Range/Units 08:13 07:49 07:48 WBC (4.8-10.8) K/ul RBC (3.93-5.22) M/uL Hgb (12.0-16.0) g/dl Hct (34.1-44.9) % MCV (80.0-100.0) fL MCH (25.0-34.0) pg MCHC (32.0-36.0) g/dL RDW Std Deviation (36.4-46.3) fL RDW Coeff of Juno (11.5-14.5) % Plt Count (130-400) K/uL MPV (9.4-12.3) fL Sodium (136-145) mmol/L Potassium (3.5-5.1) mmol/L Chloride (98-107) mmol/L Carbon Dioxide (21-32) mmol/L Anion Gap (3-11) BUN (6-23) mg/dl Creatinine (0.6-1.2) mg/dl Est Cr Clr Drug Dosing ml/min Est GFR ( Amer) ml/min Est GFR (Non-Af Amer) ml/min BUN/Creatinine Ratio (10-20) Glucose (70-99(Fasting)) mg/dl POC Glucose 62 L* 68 L* 66 L* (70-99) mg/dl Calcium (8.5-10.1) mg/dl Magnesium (1.7-2.4) mg/dl 11/12/21 11/12/21 11/11/21 Range/Units 06:39 06:39 20:37 WBC 9.39 (4.8-10.8) K/ul RBC 3.23 L (3.93-5.22) M/uL Hgb 9.8 L (12.0-16.0) g/dl Hct 29.8 L (34.1-44.9) % MCV 92.3 (80.0-100.0) fL MCH 30.3 (25.0-34.0) pg MCHC 32.9 (32.0-36.0) g/dL RDW Std Deviation 52.5 H (36.4-46.3) fL RDW Coeff of Juno 15.9 H (11.5-14.5) % Plt Count 234 (130-400) K/uL MPV 9.2 L (9.4-12.3) fL Sodium 134 L (136-145) mmol/L Potassium 3.1 L (3.5-5.1) mmol/L Chloride 99 (98-107) mmol/L Carbon Dioxide 26 (21-32) mmol/L Anion Gap 9 (3-11) BUN 31 H (6-23) mg/dl Creatinine 2.96 H D (0.6-1.2) mg/dl Est Cr Clr Drug Dosing 18.3 ml/min Est GFR ( Amer) 17.8 ml/min Est GFR (Non-Af Amer) 15.4 ml/min BUN/Creatinine Ratio 10.5 (10-20) Glucose 87 (70-99(Fasting)) mg/dl POC Glucose 157 H (70-99) mg/dl Calcium 8.5 (8.5-10.1) mg/dl Magnesium 1.7 (1.7-2.4) mg/dl 11/11/21 Range/Units 16:38 WBC (4.8-10.8) K/ul RBC (3.93-5.22) M/uL Hgb (12.0-16.0) g/dl Hct (34.1-44.9) % MCV (80.0-100.0) fL MCH (25.0-34.0) pg MCHC (32.0-36.0) g/dL RDW Std Deviation (36.4-46.3) fL RDW Coeff of Juno (11.5-14.5) % Plt Count (130-400) K/uL MPV (9.4-12.3) fL Sodium (136-145) mmol/L Potassium (3.5-5.1) mmol/L Chloride (98-107) mmol/L Carbon Dioxide (21-32) mmol/L Anion Gap (3-11) BUN (6-23) mg/dl Creatinine (0.6-1.2) mg/dl Est Cr Clr Drug Dosing ml/min Est GFR ( Amer) ml/min Est GFR (Non-Af Amer) ml/min BUN/Creatinine Ratio (10-20) Glucose (70-99(Fasting)) mg/dl POC Glucose 91 (70-99) mg/dl Calcium (8.5-10.1) mg/dl Magnesium (1.7-2.4) mg/dl PG Care Time/CCT Total # of Minutes Spent Total Time Spent with Patient: Total time spent is greater than 50% in coordination of care (as documented) at patient's floor/unit and/or counseling patient: Coding Level of Care Code 01321 Subseq Hosp Care Lvl 2 Diagnoses Sepsis A41.9 Sepsis acute organ dysfunction status: unspecified Sepsis type: sepsis due to unspecified organism PAD (peripheral artery disease) I73.9 Ischemic cardiomyopathy I25.5 ESRD (end stage renal disease) on dialysis N18.6; Z99.2 Metabolic encephalopathy G93.41 Aortic stenosis I35.0 Diabetic peripheral neuropathy E11.42 Anemia in chronic renal disease N18.9; D63.1 Coronary artery disease I25.10 Depression F32.A Hypothyroidism E03.9 Chronic respiratory failure with hypoxia J96.11 DVT prophylaxis Z29.9 (1) Sepsis Sepsis acute organ dysfunction status: unspecified Sepsis type: sepsis due to unspecified organism Qualified Code(s): A41.9 - Sepsis, unspecified organism
[2021-11-12] MEDS: traMADol HCL 50 MG TABLET PO PRN (17:07)
[2021-11-12] MEDS: GABAPENTIN 100 MG CAP PO SCH (20:00)
[2021-11-12] MEDS: ATORVASTATIN 40 MG TAB PO SCH (20:00)
[2021-11-12] MEDS ORDERED: LANTUS PER UNIT CHARGE SQ SCH (21:00)
[2021-11-13] MEDS: MENTHOL-ZINC OXIDE 360 APPLN/120 GM TUBE EXT SCH ×2 (00:30→08:28)
[2021-11-13] MEDS: LEVOTHYROXINE SODIUM 88 MCG TABLET PO SCH (05:43)
[2021-11-13 07:45] LABS: Basophils # (auto) 0.05 K/uL (0-0.2); Basophils % (auto) 0.6 %; Eosinophils # (auto) 0.39 K/uL (0-0.50); Eosinophils % (auto) 4.5 %; Hematocrit (blood only) 28.9 % (34.1-44.9); Hemoglobin 9.5 g/dl (12.0-16.0); Immature Granulocytes # (auto) 0.03 K/uL (0.00-0.02); Immature Granulocytes % (auto) 0.3 %; Lymphocytes # (auto) 2.41 K/uL (1.2-3.4); Lymphocytes % (auto) 27.7 %; Mean Corpuscular Hemoglobin 29.7 pg (25.0-34.0); Mean Corpuscular Hgb Conc 32.9 g/dL (32.0-36.0); Mean Corpuscular Volume 90.3 fL (80.0-100.0); Mean Platelet Volume 9.6 fL (9.4-12.3); Monocytes # (auto) 0.86 K/uL (0.24-0.82); Monocytes % (auto) 9.9 %; Neutrophils # (auto) 4.96 K/uL (1.4-6.5); Platelet Count 271 K/uL (130-400); RDW Coefficient of Variation 15.9 % (11.5-14.5); RDW Standard Deviation 52.3 fL (36.4-46.3)
[2021-11-13 08:12] LABS: BUN Creatinine Ratio 12.2 (10-20); Calcium 8.7 mg/dl (8.5-10.1); Est GFR (Non-African American) 11.2 ml/min; Potassium 3.2 mmol/L (3.5-5.1)
[2021-11-13] MEDS: traMADol HCL 50 MG TABLET PO PRN (08:25)
[2021-11-13] MEDS: NEPHROCAPS PO SCH (08:26)
[2021-11-13] MEDS: PANTOprazole 40 MG TAB PO SCH (08:26)
[2021-11-13] MEDS: SACCHAROMYCES BOULARDII 250 MG CAP PO SCH (08:26)
[2021-11-13] MEDS: DULoxetine HCL 30 MG CAP PO SCH (08:27)
[2021-11-13] MEDS: SEVELAMER HCL 800 MG TABLET PO SCH ×2 (08:27→13:30)
[2021-11-13] MEDS: DOCUSATE SODIUM 100 MG CAP PO SCH (08:28)
[2021-11-13] MEDS: PROSOURCE NO CARB 30 ML/PKT PO SCH (08:28)
[2021-11-13] MEDS ORDERED: EPOETIN ALFA 10,000 UNITS/ML VIAL IV ONE (08:30)
[2021-11-13] MEDS ORDERED: HEPARIN SOD (PORCINE) 1000 UNIT/ML IV SCH (08:30)
[2021-11-13] MEDS ORDERED: SODIUM CHLORIDE 0.9% 1000ML 1,000 ML IV PRN (08:30)
[2021-11-13] MEDS: cefTRIAXone SODIUM 2,000 MG in DEXTROSE 5% 50 ML IV SCH (08:36)
[2021-11-13] MEDS: INSULIN ASPART PER UNIT SC SCH ×2 (08:39→13:08)
--- NOTE | 2021-11-13 09:16 | Nephrology Progress Note ---
Date of Service November 13, 2021 Assessment & Plan Admission and Anticipated Discharge Date Admission Date: November 06, 2021 Subjective Assessment & Plan (1) ESRD (end stage renal disease) on dialysis: Plan: ESRD on dialysis Thursday and Thursday --Electrolytes ok in fact low K -Dialyze TODAY as Rxed, keep SBP > 100 -Please continue her on outpatient medications. No e/o fluid overload. (2) Diabetic foot ulcer: Plan: - Chronic foot ulcers- Renally dose antibiotics, timing it with the dialysis treatment. - Refused surgery. Subjective Feels her legs are doing fine. So far doing fine with Dialysis. CVC worked fine. Reports no fevers/chills, chest pain, shortness of breath, abdominal pain, nausea, or vomiting. Review of Systems Review of Systems: Constitutional-Alert cooperative,Comfortable,Depressed No shortness of breath Physical Exam Physical Exam: General: awake, alert, no apparent distress Head: Normocephalic, atraumatic ENT: PERRL, EOMI, mucous membranes moist Chest: Clear to auscultation, on room air, no adventitious breath sounds Cardiac: Regular rate and rhythm, no murmur, no JVD Abdominal: soft, nontender to palpation, no rebound, guarding or tenderness Extremities: Both Foot heavily bandaged Neuro: AAO x 3 Results & Data ([facility]) Vital Signs (Past 12 Hours) Vital Signs Temp Pulse Resp BP Pulse Ox O2 Del Method 11/13/21 08:02 36.5 C 90 20 128/64 93 Room Air 11/13/21 07:30 Room Air 11/12/21 22:57 37.2 C 104 H 19 148/89 H 93 Room Air
[2021-11-13] MEDS: MIDODRINE HCL 10 MG TAB PO SCH (09:42)
--- NOTE | 2021-11-13 10:25 | Pharmacy Report ---
Pharmacy PK ABX Note - Date of Service November 13, 2021 - Assessment and Plan Assessment 71 year old F receiving IV Vancomycin and ceftriaxone for possible osteomyelitis of bilateral foot wounds. * PMHx significant for ESRD on HD MWF, T2DM. From [facility]. Recent hospitalization in August 2021 for similar issue. Recent abx include: doxycycline, bactrim, and levofloxacin. * R foot MRI report states: "concerning for an early osteomyelitis". L foot MRI reports states: "No MRI evidence for acute osteomyelitis". * 10/31/21 foot culture (unsure which foot???) from [facility] grew MRSA (Vanc TSERING = 2) and Proteus mirabilis. Blood cultures no growth x 24hrs. * s/p I&D of both feet, R foot exostectomy fifth metatarsal base, L foot amputation distal phalanx great toe, L foot partial calcanectomy on 11/10/21 * Foot cultures from 11/10/21 growing MRSA Vancomycin * Random AM level in goal range * Patient is scheduled for HD today * Will re-dose vanco after HD Plan * Vanco 750 mg IV x1 * Random level ordered for 11/15, prior to next HD session
--- NOTE | 2021-11-13 14:53 | Orthopedic Progress Note ---
Date of Service November 13, 2021 Assessment & Plan (1) Diabetic foot ulcer: Plan: Postop day 3 status post 1. Right foot exostectomy of the calcaneus. 2. Right foot exostectomy, fifth metatarsal base. 3. Irrigation and debridement, ulcer, right posterior heel 1.0 x 1.0 x 1.2 cm. 4. Irrigation and debridement, right lateral heel ulcer, 2.0 x 1.0 x 1.2 cm. 5. Irrigation and debridement of right fifth metatarsal base ulcer 6.0 x 4.0 x 0.9 cm. 6. Left foot partial calcanectomy. 7. Left foot amputation, distal phalanx great toe. 8. Irrigation and debridement, left heel ulcer 8.0 x 4.0 x 0.3 cm. 9. Tenosynovectomy and partial resection, right peroneus brevis tendon. All irrigation and debridement noted above ulcers are including skin/dermis/subcutaneous tissue/fascia unless otherwise noted. Antibiotics as per med service. Follow cultures. Patient will need to be bed to chair at this point in time. DVT prophylaxis-Heparin SQ twice daily, SCDs. Pain management as written. Dressing changed today. Discharge [facility]plan [facility] to [facility]. Discharge instructions placed in patient's chart. Continue daily dressing changes, wound care. Admission and Anticipated Discharge Date Admission Date: November 06, 2021 Subjective Patient resting in bed comfortably. She is just finished dialysis. She is feeling well overall, no current complaints. Mild pain in her feet but otherwise pain well controlled. Review of Systems Review of Systems: All systems reviewed & are unremarkable except as noted in Subjective Physical Exam Physical Exam: Left foot dressing removed. He will ulceration stable appearance with epithelization. No purulence, no erythema. Mild serous drainage. Great toe incision is well approximated, dry. Sutures intact. Right foot: Medial foot wound with mild serous drainage. No purulence. No erythema. Lateral foot ulcerations with mild drainage. Incision is clean, dry, intact without drainage. Results & Data ([facility]) Vital Signs (Past 12 Hours) Vital Signs Temp Pulse Pulse Resp BP BP Pulse Ox 11/13/21 13:27 36.6 C 96 H 18 119/78 96 11/13/21 12:45 91 H 128/81 11/13/21 12:30 97 H 142/84 H 11/13/21 12:15 93 H 141/85 H 11/13/21 12:00 94 H 144/80 H 11/13/21 11:45 98 H 127/80 11/13/21 11:30 96 H 136/74 11/13/21 11:15 101 H 120/78 11/13/21 13:12 36.6 C 93 H 149/81 H 11/13/21 11:00 100 H 126/78 11/13/21 10:45 99 H 118/70 11/13/21 10:30 97 H 135/74 11/13/21 10:20 98 H 146/84 H 11/13/21 10:10 36.8 C 98 H 11/13/21 08:02 36.5 C 90 20 128/64 93 11/13/21 07:30 O2 Del Method 11/13/21 13:27 Room Air 11/13/21 12:45 11/13/21 12:30 11/13/21 12:15 11/13/21 12:00 11/13/21 11:45 11/13/21 11:30 11/13/21 11:15 11/13/21 13:12 11/13/21 11:00 11/13/21 10:45 11/13/21 10:30 11/13/21 10:20 11/13/21 10:10 11/13/21 08:02 Room Air 11/13/21 07:30 Room Air (1) Diabetic foot ulcer Diabetes mellitus type: other specified (including TU) Diabetic foot ulcer location: unspecified part of foot Laterality: unspecified laterality Non- pressure ulcer stage: unspecified non-pressure ulcer stage Qualified Code(s): E13.621 - Other specified diabetes mellitus with foot ulcer; L97.509 - Non- pressure chronic ulcer of other part of unspecified foot with unspecified severity
--- NOTE | 2021-11-13 14:55 | Discharge Summary ---
Date of Service November 13, 2021 Admission HPI Per Admitting Provider Saida Manriquez is a 71-year-old female presenting from [facility] with past medical history significant for ESRD on dialysis with anemia of CKD, CAD, ischemic cardiomyopathy, aortic stenosis, severe PAD, hypertension, diabetes with neuropathy, AUDI, hypothyroidism who presents with worsening bilateral feet wounds and failing outpatient antibiotic therapy for this. Patient had a 10-day hospitalization in August of this year due to MSSA septic shock 2/2 right calcaneus osteomyelitis and UTI. She was initially treated in the ICU, requiring pressors and multiple antibiotics to treat her sepsis, ended up requiring removal of her permacath and underwent right calcanectomy. Blood cultures at that time grew MSSA, urine cultures with Enterococcus faecalis. She was discharged to [facility] on 08/14 with IV cefazolin 2g 3 times weekly with dialysis (unclear when IV cefazolin was discontinued) and has been under the care of Dr. Osborn. He has been monitoring her wounds. She tells me they had initially been improving with antibiotic therapy, and review of vascular note from 10/08 confirms that they seem to have been improving. However, patient and Dr. Osborn noticed over the past week that they began to look worse, specifically they dried up and had some purulent drainage on the right medial aspect as well as the left heel. She had a fever at one point and says she was a little confused for a day at [facility], but otherwise has been feeling well enough. When it became clear they had begun to appear worse, Dr. Osborn had collected cultures from the which are currently growing out MRSA and Proteus. She has been on Bactrim, doxycycline and Levaquin for the past few days. Despite this, they continue to worsen and patient has been tachycardic and hypertensive, as well as occasionally febrile. In ED, she has been tachycardic with highest reported HR 112, tachypneic at times, however SPO2 >95% on room air, normotensive and afebrile. Labs here today with WBC at upper end of normal limits 10.80, similar to labs done on 11/01. Creatinine 2.19, appears normal for patient dialysis. Na 34, Mg 1.5. UA from 11/05 with leukocyte esterase, WBCs, RBCs, and bacteria growth, however with 1020 epithelial cells. CXR showed cardiomegaly without acute process. Principal Diagnosis Diabetic foot ulcers, osteomyelitis of heel and foot Discharge Exam Constitutional WD/WN, vitals as above Eyes + anicteric sclerae Neck trachea midline, no thyromegaly Respiratory normal respiratory effort, lungs clear to auscultation Cardiovascular Rate/Rhythm: regular rate and regular rhythm Heart Sounds: + murmur (2/6 STAN at RUSB) Extremities: no edema Chest (Breasts) Chest: normal inspection of chest Gastrointestinal (Abdomen) normal bowel sounds, soft, nontender, no hepatosplenomegaly Musculoskeletal Extremities: + extremities abnormal to inspection (feet bilat dressings,not removed), no cyanosis and no clubbing Skin no rashes, warm and dry Neurologic moves all extremities and awake; no focal motor deficits Psychiatric A+Ox3, euthymic affect Lymphatic no lymphedema Discharge Data Allergies Allergy/AdvReac Type Severity Reaction Status Date / Time cyclobenzaprine Allergy Unknown ON MED LIST Verified 11/06/21 17:08 [From Flexeril] Consultations 11/06/21 14:29 ED Decision to Admit Stat 11/06/21 19:36 Consult Nephrology Routine Consult Orthopedic Surgery Routine Consult Vascular Surgery Routine 11/07/21 12:51 Consult Infectious Diseases Routine Procedures Performed Operation Date: 11/10/21 12:00 Actual Procedures p 3. Irrigation and debridement ulcer posterior right heel 1.0 x 1.0 x 1.2 cm, 4. Irrigation debridement right lateral heel ulcer 2.0 x 1.0 x 1.2 cm, 5. Irrigation debridement right fifth metatarsal base ulcer 6.0 x 4.0 x 0.9 cm, 8. Irrigation debridement left heel ulcer 8.0 x 4.0 x 0.3 cm, 9. Tenosynovectomy and partial resection right peroneus brevis,*All irrigation and debridement noted above are including skin/dermis/subcutaneous fat/fascia unless otherwise noted(Bilateral) - Nolberto Naqvi DO s 1. Right foot exostectomy calcaneus, 2. Right foot exostectomy fifth metatarsal base, - Nolberto Naqvi DO s 7. Left foot amputation distal phalanx great toe,(Left) - oNlberto Naqvi DO s 6. Left foot partial calcanectomy,(Left) - Nolberto Naqvi DO Ordered Studies 11/06/21 19:05 MR foot LT w/o con Urgent MR foot RT w/o con Urgent Hospital Course (1) Sepsis: - Source diabetic foot wound/osteomyelitis in one or both feet/ankle. HD catheter does not appear infected. Wound cultures [facility] on 10/[facility] at [facility] growing MRSA and Proteus. Had been started on Bactrim on 11/01, doxycycline on 11/02, and Levaquin on 11/04. - MRI right foot on 11/06 with concern for early osteomyelitis in the lateral base of the 5th metatarsal. - MRI left foot on 11/06 without signs for osteomyelitis - Started on vancomycin and Rocephin in ED - Switched to vanc/Zosyn - Switched back to vanc/ceftriaxone to follow prior cultures on 11/09. - Blood cultures - NGTD on 11/11. - Consulted vascular surgery and orthopedics - Appreciate recs. No intervention warranted as pt bedbound - Vascular surgery said not a candidate for revascularization. - Patient is adamantly opposed to amputation. Dr. Naqvi debrided on 11/10. Cultures with MRSA - ID consulted and saw the patient- Recommended continuing IV antibioticsuntil discharge. ID note clearly indicate feet are not salvageable and ongoing infection will be an issue. Despite this, patient still not willing to undergo amputation. Will dc to SNF on po Cipro 500mg po once daily and clinda 300mg po qid x 2 weeks as per ID. -post-op management as per Ortho -needs [facility] follow up, daily dressing change f/u Ortho as outpt in 1 week (2) PAD (peripheral artery disease): Severe PAD based on clinical exam and bilateral lower extremity arterial Dopplers showing advanced peripheral vascular disease with multifocal bilateral vascular occlusions. - Dr. Pablo consulted as above. - No intervention. - Per previous notes, patient strongly opposed to amputation. -continue statin -is not on antiplatelet-due to h/o GI bleeding (3) Ischemic cardiomyopathy: Echo in August with EF 30-35%, septal akinesis, inferobasal akinesis, moderate global hypokinesis of left ventricle. Elevated RVSP 40-50 mmHg. - Presently appears euvolemic; management with HD. - Continue home statin; not on beta-noel or ACEi possibly due to low BP given her midodrine on HD days (4) ESRD (end stage renal disease) on dialysis: Dialysis at [facility] , continues on such schedule here - Consulted [facility] nephrology appreciated (5) Metabolic encephalopathy: 2/2 to sepsis. Had difficultly recalling events, mixing up details. A+O x3 at baseline. - At baseline by 11/07 (6) Aortic stenosis: Moderate to severe on echo in August. - Maintain adequate volume status. - Should follow up with cardiology outpt for this. (7) Diabetic peripheral neuropathy: A1c was 9.4% in October. With hypoglycemia here in AM requiring lower dose of Kantus at evenings Needs increased Humalog dosing with meals-changed sliding scale on discharge - Continue gabapentin for neuropathy. (8) Anemia in chronic renal disease: Iron studies in August showed normal serum iron, B12, and folate. Hgb down to 9.5 likely some blood loss from surgery (9) Coronary artery disease: Chronic, stable. Unclear history, did have wall motion abnormalities on echo in August 2021. - No acute needs. - Continue statin, no longer on beta-noel or ACEi/ARB due to hypotension. No longer on antiplatelet due to GI bleed as per jail report (10) Depression: - Continue Cymbalta 30 mg daily. (11) Hypothyroidism: TSH was 4.6 this admission. - Continue levothyroxine 88 mcg daily. (12) Chronic respiratory failure with hypoxia: Reportedly uses 2L NC at baseline, however has been on RA in ED with SpO2 > 93%. - Monitor (13) DVT prophylaxis: Heparin 5,000 units SQ Q12h but pt refusing this Dispo-dc to SNF today Total Time Total Time Spent Total Time Spent (In Minutes): 40 min Discharge Plan Discharge Items Patient Disposition: Transfer [facility]dc Fac Reason For Visit: INFECTED BILATERAL FOOT WOUNDS Discharge Diagnosis: Infected foot wounds, osteomyelitis of the heel and foot Condition on Discharge: Fair Activity: As commented below Non-emergency contact: Primary Care Provider, Surgeon and Manager Clinical Research Call non-emergency contact if: you have any medication questions, your symptoms worsen, you have a fever, your wound has increased redness, your wound has increased drainage and your wound pain has increased Follow-up/Referrals: [facility] [Primary Care Provider] - Diet: Carb Consistent or DM2 and Dialysis Renal Addtl Attending Provider Instructions: Please continue on oral Cipro and clindamycin for the next 2 weeks as recommended by [facility]. Addtl Tower Watchman Provider Instructions: Daily dressing changes. Use adaptic, 4x4's, kerlix wrap and lightly wrapped sanjay wrap Once the wounds are dry, you may do dry dressings daily. Follow up with [facility] OR daily wound care checks by the [facility] wound team. Special consideration with the left heel. Follow up with Dr. Naqvi or Arben Tony PA-C in 1 week. Pending Studies at Discharge: No Stand-Alone Forms: My [facility] Skilled Items Patient informed of condition?: Yes DNR: Yes Discharge Level of Care: Skilled Communicable Disease: No Discharge Prognosis: Improving Lines: None Urinary Catheter: No Medications and DC Order Prescriptions: New tramadol 50 mg Tablet 25 mg PO BID PRN (Reason: moderate-severe pain) Qty: 10 0RF ciprofloxacin HCl [Cipro] 500 mg tablet 500 mg PO DAILY Qty: 14 0RF Rx Instructions: take after dialysis clindamycin HCl 300 mg capsule 300 mg PO Q6H 14 Days Qty: 56 0RF Continued Aquacel Ac Dressing 1 applic topical DAILY Rx Instructions: Aquacell AG to open areas;ABD;KERLIX atorvastatin 80 mg tablet 80 mg PO QPM acetaminophen [Tylenol] 325 mg Tablet 650 mg PO Q6 PRN (Reason: Fever Or Pain) Rx Instructions: GIVE FOR TEMP >100, PAIN 1-10 levothyroxine 88 mcg tablet 88 mcg PO DAILY bisacodyl [Dulcolax (bisacodyl)] 10 mg Suppository 10 mg MS DIRECTED PRN (Reason: Constipation) Rx Instructions: PER BOWEL PROTOCOL pantoprazole 40 mg tablet,delayed release (DR/EC) 40 mg PO BID docusate sodium 100 mg Capsule 100 mg PO BID gabapentin 100 mg capsule 200 mg PO QPM Nephrocaps 1 mg Capsule 1 cap PO DAILY midodrine 10 mg tablet 10 mg PO MOWEFR Rx Instructions: ADMINISTER 30 MIN PRIOR TO DIALYSIS. Saccharomyces boulardii [Florastor] 250 mg Capsule 0 mg PO BID duloxetine 30 mg capsule,delayed release(DR/EC) 30 mg PO DAILY Liquacel Liquid 1 ea PO DAILY Rx Instructions: 30 ML sevelamer carbonate 800 mg tablet 800 mg PO .Q24HRS PRN (Reason: SNACK) sevelamer carbonate 800 mg tablet 800 mg PO TIDM Rx Instructions: GIVE TO BIND PHOSPHATE menthol-zinc oxide [Calmoseptine] 0.44-20.6 % Ointment 1 applic TOPICAL QS Rx Instructions: APPLT TO COCCYX Changed insulin glargine [Lantus U-100 Insulin] 100 unit/mL solution 15 unit SUBCUT HS Qty: 10 0RF insulin lispro [Humalog U-100 Insulin] 100 unit/mL solution See Rx Instructions .ROUTE .COMPLEX Qty: 10 0RF Rx Instructions: INJECT PER SLIDING SCALE: 150-200=2 units, 200-250=4 units, 250- 300=8UNITS, 300-350=12UNITS, >350=16UNITS and RECHECK BSG IN 2 HR. Discontinued levofloxacin 500 mg tablet 500 mg PO .Q2DAYS @HS Rx Instructions: 7 ADMINISTRATIONS, END AFTER 17TH DOSE doxycycline hyclate 100 mg tablet 100 mg PO BID Rx Instructions: END 11/19/2021 Discharge Orders: Discharge Order (Routine); Ordered 11/13/21 Ordered By: Jaylene Shi Admission Data Admit Date/Time: 11/06/21 17:30 Attending Provider: Jaylene Shi Admit Provider: Lalit Quiroz Primary Care Provider: [facility] Other Providers: Christian Gaona ; Sofía Parks ; Lalit Quiroz ; Holly Alejandro ; Nolberto Naqvi ; Pippa Cordova ; Tod Washington ; Julia Smart ; Wilfrid Alvarado I. ; Ronen Wilkinson II ; Fariba Orozco ; Wes Arce ; Phong Feng Coding Level of Care Code D/C DAY MANAGEMENT >30 MINS Diagnoses Sepsis A41.9 Sepsis acute organ dysfunction status: unspecified Sepsis type: sepsis due to unspecified organism PAD (peripheral artery disease) I73.9 Ischemic cardiomyopathy I25.5 ESRD (end stage renal disease) on dialysis N18.6; Z99.2 Metabolic encephalopathy G93.41 Aortic stenosis I35.0 Diabetic peripheral neuropathy E11.42 Anemia in chronic renal disease N18.9; D63.1 Coronary artery disease I25.10 Depression F32.A Hypothyroidism E03.9 Chronic respiratory failure with hypoxia J96.11 DVT prophylaxis Z29.9
[2021-11-13] MEDS ORDERED: VANCOMYCIN HCL 750 MG in SODIUM CHLORIDE 0.9% 250 ML IV SCH (16:00)
== END 2021-11-13 15:27 | DRG 853 ==
LOC: ED 12:10 → SUATTDRO 17:30 → 2S 17:30 → 2W 11-11 11:57

== ENCOUNTER 2022-04-11 12:19 | Inpatient (IN) ==
[2022-04-11 14:03] LABS: Basophils # (auto) 0.04 K/uL (0-0.2); Basophils % (auto) 0.7 %; Eosinophils # (auto) 0.35 K/uL (0-0.50); Eosinophils % (auto) 6.3 %; Hematocrit (blood only) 32.6 % (34.1-44.9); Hemoglobin 10.9 g/dl (12.0-16.0); Immature Granulocytes # (auto) 0.02 K/uL (0.00-0.02); Immature Granulocytes % (auto) 0.4 %; Lymphocytes # (auto) 1.61 K/uL (1.2-3.4); Lymphocytes % (auto) 29.1 %; Mean Corpuscular Hemoglobin 33.4 pg (25.0-34.0); Mean Corpuscular Hgb Conc 33.4 g/dL (32.0-36.0); Mean Platelet Volume 9.6 fL (9.4-12.3); Monocytes # (auto) 0.62 K/uL (0.24-0.82); Monocytes % (auto) 11.2 %; Neutrophils % (auto) 52.3 %; Platelet Count 133 K/uL (130-400); RDW Coefficient of Variation 13.7 % (11.5-14.5); RDW Standard Deviation 50.4 fL (36.4-46.3); Red Blood Count 3.26 M/uL (3.93-5.22); White Blood Count 5.54 K/ul (4.8-10.8)
[2022-04-11 14:22] LABS: Albumin Globulin Ratio 0.8 (0.9-2); Albumin Level 3.3 gm/dl (3.4-5.0); BUN Creatinine Ratio 10.3 (10-20); Bilirubin,Total 0.4 mg/dl (0.2-1.0); Calcium 8.6 mg/dl (8.5-10.1); Creatinine Clr Calc Pharmacy 14.7 ml/min; Est GFR (African American) 13.2 ml/min; Est GFR (Non-African American) 11.4 ml/min; Globulin 3.9 gm/dl (2.5-4.0); Magnesium 1.7 mg/dl (1.7-2.4); Phosphorus 5.4 mg/dl (2.5-4.9); Potassium 3.7 mmol/L (3.5-5.1); Total Protein 7.2 gm/dl (6.0-8.3)
--- NOTE | 2022-04-11 14:28 | XRay Report ---
XR chest 1V portable HISTORY: 72 years-old Female RSV and SOB acute shortness of breath COMPARISON: Chest radiograph 11/06/2021 TECHNIQUE: AP view of the chest FINDINGS: The cardiac silhouette is enlarged. Possible pulmonary vascular congestion. Right IJ dual-lumen hemod ialysis catheter distal tip projects over the inferior SVC/superior cavoatrial junction. No pneumotho rax or large pleural effusion. Mild interstitial coarsening is similar to prior. No airspace consolid ation typical for pneumonia. Mild hypoinflation. Degenerative changes of the shoulders and spine. IMPRESSION: 1. Cardiomegaly with equivocal pulmonary vascular congestion. 2. Hypoinflation with chronic interstitial coarsening. ACT 112: Negative or not required by law. The above report was generated using voice recognition software. It may contain grammatical, syntax o r spelling errors. Electronically signed by: Dinesh Stacy M.D. 04/11/2022 2:27 PM
--- NOTE | 2022-04-11 15:11 | History & Physical Report ---
Date of Service April 11, 2022 Assessment & Plan (1) ESRD (end stage renal disease) on dialysis: Plan: - Receives M/W/F as outpatient, did not go today d/t feeling unwell with RSV. - Nephrology consulted to arrange dialysis, appreciate their recommendations and assistance. - Phosphorus 5.4, sodium 133, all other electrolytes within normal limits. - BUN 39, creatinine 3.77. - CXR with equivocal pulmonary vascular congestion, she is > 92% on room air. (2) RSV (acute bronchiolitis due to respiratory syncytial virus): Plan: - Diagnosed with RSV as an outpatient yesterday, but with 4 days of deep cough, chills, rhinorrhea. - We will provide supportive care. CXR without evidence of superimposed bacterial pneumonia or overwhelming pulmonary vascular congestion. (3) Coronary artery disease: Plan: - Chronic, stable. - Continue statin. No longer on antiplatelet due to previous GI bleed, not on beta-noel or SONDRA/ARB due to hypotension. (4) PAD (peripheral artery disease): Plan: - Continue statin, no antiplatelet therapy due to GI bleeding. Patient has been seen by vascular surgery in the past, patient is strongly opposed to amputation. - Evaluated by vascular surgery on last admission from November, determined not to be candidate for revascularization. - Patient is nonambulatory, uses a Heather lift for transfers. (5) Ischemic cardiomyopathy: Plan: - Echo August 2021: EF 30 to 35%, global hypokinesis of the ventricle, RSVP 40 to 50 mmHg. - Patient appears euvolemic on exam, equivocal pulmonary vascular congestion noted on CXR, she will go to dialysis tomorrow. (6) Aortic stenosis: Plan: - Moderate to severe, maintain adequate volume status, no acute needs. (7) Diabetes: Plan: - Continue on Lantus 15 units at night, sliding scale insulin added on. - Continue gabapentin for neuropathy. (8) Depression: Plan: - Continue Cymbalta. (9) Hypothyroidism: Plan: - Continue levothyroxine 88 mcg daily. Plan - Admit to med telemetry. - SCDs, heparin DVT PPx. - DNR/DNI. History of Present Illness Chief Complaint: Hypoxia, missed dialysis session today Primary Care Provider: [facility] Saida Manriquez is a 72-year-old female with a past medical history of ESRD on dialysis M/W/F, CAD, ischemic cardiomyopathy, aortic stenosis, severe peripheral arterial disease, hypertension, diabetes with neuropathy, AUDI, and hypothyroidism. She is presenting today from [facility] where she resides. Patient recently had 4 days of deep cough, runny nose, watery eyes, and chills subsequently tested positive for RSV yesterday. She was scheduled to have a dialysis session today, however was not feeling up to it due to her illness, so it was missed. Patient then was apparently hypoxic on room air at [facility] given this as well as not being able to arrange for outpatient dialysis until Thursday, patient was referred to the ED for evaluation. For my evaluation, patient voices no complaints other than the URI symptoms stated above, which she says have been getting a little bit better. On presentation she is mildly tachycardic with a max HR of 106, otherwise vital signs within normal limits. Her oxygen has been > 92% on room air throughout my visit. BUN 39, creatinine 3.77, phosphorus 5.4, sodium 133, Hgb 10.9. Other lab abnormalities. CXR shows cardiomegaly and pulmonary vascular congestion, with hypoinflation with chronic interstitial coarsening. Allergies Allergy/AdvReac Type Severity Reaction Status Date / Time cyclobenzaprine Allergy Unknown ON MED LIST Verified 04/11/22 15:16 [From Flexeril] Home Medications Medication Instructions Recorded Confirmed Type Saccharomyces boulardii 250 mg 250 mg PO BID 11/06/21 04/11/22 History capsule (Florastor) acetaminophen 325 mg tablet 650 mg PO Q6 PRN Fever Or Pain 11/06/21 04/11/22 History (Tylenol) atorvastatin 80 mg tablet 80 mg PO QPM 11/06/21 04/11/22 History docusate sodium 100 mg capsule 100 mg PO BID 11/06/21 04/11/22 History gabapentin 100 mg capsule 200 mg PO QPM 11/06/21 04/11/22 History levothyroxine 88 mcg tablet 88 mcg PO DAILY@1230 11/06/21 04/11/22 History pantoprazole 40 mg tablet,delayed 40 mg PO BID 11/06/21 04/11/22 History release protein supplement 1 ea PO DAILY 11/06/21 04/11/22 History vitamin B complex and vitamin C 1 cap PO DAILY 11/06/21 04/11/22 History no.20-folic acid 1 mg capsule insulin lispro 100 unit/mL See Rx Instructions .Route 11/13/21 04/11/22 Rx subcutaneous solution (Humalog .COMPLEX #10 mL U-100 Insulin) tramadol 50 mg tablet 25 mg PO BID PRN moderate-severe 11/13/21 04/11/22 Rx pain #10 tabs benzonatate 100 mg capsule 200 mg PO TID 04/11/22 04/11/22 History ceftriaxone 1 gram solution for 1 g IM DAILY 04/11/22 04/11/22 History injection dextromethorphan-guaifenesin 10 10 ml PO QID 04/11/22 04/11/22 History mg-100 mg/5 mL oral syrup duloxetine 20 mg capsule,delayed 20 mg PO HS 04/11/22 04/11/22 History release insulin glargine 100 unit/mL 15 unit subcut HS 04/11/22 04/11/22 History subcutaneous solution (Lantus U-100 Insulin) ipratropium 0.5 mg-albuterol 3 mg 3 ml inhalation QID 04/11/22 04/11/22 History (2.5 mg base)/3 mL nebulization soln sucroferric oxyhydroxide 500 mg 500 mg PO DAILY 04/11/22 04/11/22 History chewable tablet (Velphoro) Past Med/Surg History Medical History Anemia in chronic renal disease Aortic stenosis Chronic respiratory failure with hypoxia Coronary artery disease Depression Diabetic peripheral neuropathy Encounter for removal of vascular catheter 08/2021 - Dr Inocencio Pablo (HD catheter) ESRD (end stage renal disease) on dialysis History of CVA (cerebrovascular accident) History of gastrointestinal bleeding Hypertension Hypothyroidism Ischemic cardiomyopathy Obesity Obstructive sleep apnea PAD (peripheral artery disease) Surgical History H/O foot surgery 08/2021 - right calcaneal resection 2nd to osteomyelitis - Dr Dick Naqvi Family History Other No pertinent family history Social History Smoking Status: Never smoker Second Hand Exposure: No; Hx Alcohol Use: No Hx Substance Use: No Preferred Language: Lao Communication Ability: Effective Transactional Paralegal Required: No Beliefs That Will Affect Care: None Current Living Situation: Longterm Current Living Situation Comment: [facility] Other Information That Helps Us Care for You: No Feels Safe at Home: Yes Safety Concerns: Feels Safe At This Time Assistive Devices: Wheelchair Review of Systems Review of Systems: Constitutional: Chills x4 days; no fevers, weakness, fatigue, myalgias, anorexia, night sweats Eyes: Watery eyes x4 days; no diplopia, no worsening or blurred vision ENT: Runny nose x4 days; normal hearing, no trouble swallowing Respiratory: Deep cough, sometimes productive of sputum x4 days Cardiovascular: No chest pain, tightness or palpitations Abdomen: No pain, nausea, vomiting, diarrhea or constipation : Denies dysuria, hematuria, increased urgency/frequency, urinary retention Musculoskeletal: No joint pain, calf pain, swelling Neurologic: No weakness, numbness/tingling, or balance problems Psychiatric: No anxiety or depression Skin: No rash or itch Physical Exam Physical Exam: General: awake, alert, no apparent distress Head: Normocephalic, atraumatic ENT: PERRL, EOMI, no pharyngeal exudate, mucous membranes moist Chest: Scattered wheezing heard throughout, no other adventitious breath sounds, patient is on room air Cardiac: Regular rate and rhythm, no murmur, no JVD, normal peripheral pulses, good capillary refill Abdominal: NABS x 4 quadrants, soft, nontender to palpation, no rebound, guarding or tenderness Extremities: Normal inspection, no peripheral edema or erythema, calfs nontender to palpation Psych: Normal mood and affect Neuro: AAO x 3, strength intact bilaterally and rated 5/5, no motor deficits, speech is clear, no peripheral sensory deficits Skin: no rash or erythema Results & Data Results & Data ([facility]) Vital Signs (Past 12 Hours) Vital Signs Temp Pulse Pulse Resp BP BP Pulse Ox 04/11/22 14:19 100 H 18 140/70 98 04/11/22 12:37 36.8 C 106 H 22 136/71 96 O2 Del Method 04/11/22 14:19 Room Air 04/11/22 12:37 Room Air Laboratory Results Abnormal lab results 12/09/22 12/09/22 Range/Units 13:55 13:55 RBC 3.26 L (3.93-5.22) M/uL Hgb 10.9 L (12.0-16.0) g/dl Hct 32.6 L (34.1-44.9) % RDW Std Deviation 50.4 H (36.4-46.3) fL Sodium 133 L (136-145) mmol/L BUN 39 H (6-23) mg/dl Creatinine 3.77 H (0.6-1.2) mg/dl Glucose 154 H (70-99(Fasting)) mg/dl Phosphorus 5.4 H (2.5-4.9) mg/dl Albumin 3.3 L (3.4-5.0) gm/dl Albumin/Globulin Ratio 0.8 L (0.9-2) Diagnostic Findings Chest X-Ray 04/11/22 12:45 XR chest 1V portable HISTORY: 72 years-old Female RSV and SOB acute shortness of breath COMPARISON: Chest radiograph 11/06/2021 TECHNIQUE: AP view of the chest FINDINGS: The cardiac silhouette is enlarged. Possible pulmonary vascular congestion. Right IJ dual-lumen hemodialysis catheter distal tip projects over the inferior SVC/superior cavoatrial junction. No pneumothorax or large pleural effusion. Mild interstitial coarsening is similar to prior. No airspace consolidation typical for pneumonia. Mild hypoinflation. Degenerative changes of the shoulders and spine. IMPRESSION: 1. Cardiomegaly with equivocal pulmonary vascular congestion. 2. Hypoinflation with chronic interstitial coarsening. ACT 112: Negative or not required by law. The above report was generated using voice recognition software. It may contain grammatical, syntax or spelling errors. Electronically signed by: Dinesh Stacy M.D. 04/11/2022 2:27 PM ECG Additional Comments: Poor data quality, interpretation may be adversely affected Normal sinus rhythm Left axis deviation Minimal voltage criteria for LVH, may be normal variant Inferior infarct (cited on or before 06-AUG-2021) Anterolateral infarct (cited on or before 04-AUG-2021) Abnormal ECG When compared with ECG of 06-NOV-2021 13:44, Nonspecific T wave abnormality no longer evident in Lateral l adrian. Code Status & VTE Plan Code Status DNR/DNI. Supervising Physician Co-Signing Physician Notes Patient seen and examined, chart reviewed, case discussed with Irena Conti PA-C and I agree with the assessment and plan as above except as otherwise noted Labs and images reviewed Patient with several days of RSV, 4 days of cough/chills. She felt very tired and did not go for dialysis today; however facility will not be able to arrange for the dialysis until Thursday and patient was recommended for admission for weakness due to RSV and inpatient dialysis. She is with some pulmonary vascular congestion on imaging, is not hypoxic on room air. Pitting edema is present. She is not having any chest pain. No indication for emergent dialysis. Given that outpatient dialysis is not able to be arranged till Thursday will admit, consult nephrology for dialysis. Supportive care for RSV. No evidence of secondary bacterial pneumonia. Agree with management above. Bedside patient has diminished lung sounds and trace and expiratory wheezes. And pitting edema with regular heart rate. PG Care Time/CCT Total # of Minutes Spent Total Time Spent with Patient: Total time spent is greater than 50% in coordination of care (as documented) at patient's floor/unit and/or counseling patient: Coding Level of Care Code 82304 Initial Inpt Care Lvl 3 Diagnoses ESRD (end stage renal disease) on dialysis N18.6; Z99.2 RSV (acute bronchiolitis due to respiratory syncytial virus) J21.0 Coronary artery disease I25.10 PAD (peripheral artery disease) I73.9 Ischemic cardiomyopathy I25.5 Aortic stenosis I35.0 Diabetes E11.9 Depression F32.A Hypothyroidism E03.9
--- NOTE | 2022-04-11 15:22 | Emergency Department Note ---
Impression & Plan Hypoxia, ESRD (end stage renal disease) on dialysis, RSV (acute bronchiolitis due to respiratory syncytial virus) ED Provider Note NAME: SHANEL HARDY AGE: 72 SEX: F ARRIVES VIA: Ambulance INFORMANT: Patient ED PROVIDER(S): Bryan Benitez MD CHIEF COMPLAINT: RSV, missed HD, hypoxia PLAN: Disposition: Admit MEDICAL DECISION MAKING: The patient is a pleasant 72-year-old woman with a past medical history of stage renal disease on dialysis, anemia, CAD, ischemic cardiomyopathy, aortic stenosis, severe PAD, hypertension, diabetes with neuropathy, AUDI, hypothyroidism who presents to the emergency department from her fdc facility at [facility] for worsening shortness of breath and hypoxia with new oxygen requirement in setting of being diagnosed with RSV with symptoms of cough and congestion over the past several days. Per report the patient felt unwell this morning and declined her dialysis appointment. However her respiratory status worsened today and was referred to emergency department due to being unable to obtain dialysis until Thursday. The patient does feel as though she is retaining fluid. She denies nausea, vomiting, diarrhea or urinary symptoms. On arrival the patient is chronically ill-appearing but no distress, afebrile with stable vital signs. She appears hypervolemic with diminished breath sounds at the bases with underlying rales and rhonchi. EKG without overt acute ischemia. CXR with interstitial thickening and vascular congestion. WBC and platelets within normal limits. H/H approximate to prior injury values. Chemistry without metabolic acidosis. Creatinine 3.7 similar to prior range values in setting of end-stage renal disease on dialysis. Electrolytes without significant abnormality. Lipase within normal limits. COVID-19 RNA, DIRK test was negative. Given the patient's intermittent hypoxia now having missed dialysis today in the setting of RSV infection we will proceed with admission for further management including dialysis tomorrow which was confirmed to be available by investigation lieutenant with sales marketing coordinator. Case was discussed with [place] Garsia, [facility] [place], who will evaluate the patient for admission. Triage Nursing notes reviewed and agree them. Prior medical records reviewed Vital Signs: reviewed Differential diagnosis: Reactive airway disease, pneumonia, pneumothorax, COPD, CHF, infections, cardiac ischemia, pulmonary embolism, musculoskeletal, gastrointestinal, as well as other pathologies. ER treatment provided: See below. Diagnostics interpreted by me: ECG: Normal sinus rhythm, 100 bpm, no ectopy, LVH, no overt ST elevation or depression, QTC 45, QRS 88 Cardiac Monitoring: An order for continuous cardiac monitoring was placed and demonstrated Normal sinus rhythm, 100 bpm, no ectopy. Laboratory studies: See below Imaging studies: See below Consultation(s): Case was discussed with Dr. Garsia, [facility] [place], who will evaluate the patient for admission. HPI: The patient is a pleasant 72-year-old woman with a past medical history of stage renal disease on dialysis, anemia, CAD, ischemic cardiomyopathy, aortic stenosis, severe PAD, hypertension, diabetes with neuropathy, AUDI, hypothyroidism who presents to the emergency department from her fdc facility at [facility] for worsening shortness of breath and hypoxia with new oxygen requirement in setting of being diagnosed with RSV with symptoms of cough and congestion over the past several days. Per report the patient felt unwell this morning and declined her dialysis appointment. However her respiratory status worsened today and was referred to emergency department due to being unable to obtain dialysis until Thursday. The patient does feel as though she is retaining fluid. She denies nausea, vomiting, diarrhea or urinary symptoms. ROS: See above HPI for pertinent positives & negatives. A total of 10 systems reviewed and were otherwise negative. VITALS:See Below PHYSICAL EXAMINATION: GENERAL: Awake, alert, fatigued-appearing, in no distress, BMI 33.2 HENT: Normocephalic, atraumatic. Oropharynx unremarkable. EYES: Normal conjunctiva. Sclera non-icteric. NECK: Supple. No nuchal rigidity. FROM. No JVD. RESPIRATORY: Diminished breath sounds at the bases with underlying rales and rhonchi. CARDIAC: Tachycardic rate, normal rhythm. Extremities warm and well perfused. Pulses equal. ABDOMEN: Soft, non-distended. No tenderness to palpation. No rebound or guarding. No masses. RECTAL: Deferred. MUSCULOSKELETAL: Chest examination reveals no tenderness. The back is symmetrical on inspection without obvious abnormality. There is no CVA tenderness to palpation. No joint edema. LOWER EXTREMITIES: Calves are equal size bilaterally and non-tender. 1+ BLE edema. No discoloration. NEURO: Normal sensorium. No sensory or motor deficits noted. SKIN: No rash or jaundice noted. Bryan Benitez MD Past Med/Surg History Medical History Anemia in chronic renal disease Aortic stenosis Chronic respiratory failure with hypoxia Coronary artery disease Depression Diabetic peripheral neuropathy Encounter for removal of vascular catheter 08/2021 - Dr Inocencio Pablo (HD catheter) ESRD (end stage renal disease) on dialysis History of CVA (cerebrovascular accident) History of gastrointestinal bleeding Hypertension Hypothyroidism Ischemic cardiomyopathy Obesity Obstructive sleep apnea PAD (peripheral artery disease) Surgical History H/O foot surgery 08/2021 - right calcaneal resection 2nd to osteomyelitis - Dr Dick Naqvi Family History Other No pertinent family history Social History Smoking Status: Never smoker Second Hand Exposure: No; Hx Alcohol Use: No Hx Substance Use: No Preferred Language: Bolivian Communication Ability: Effective Planner/Scheduler Required: No Beliefs That Will Affect Care: None Current Living Situation: Intermediate Current Living Situation Comment: [facility] Other Information That Helps Us Care for You: No Feels Safe at Home: Yes Safety Concerns: Feels Safe At This Time Assistive Devices: Wheelchair Allergies Allergies Allergy/AdvReac Type Severity Reaction Status Date / Time cyclobenzaprine Allergy Unknown ON MED LIST Verified 04/11/22 15:16 [From Flexeril] Home Meds Home Medications Medication Instructions Recorded Confirmed Saccharomyces boulardii 250 mg 250 mg PO BID 11/06/21 04/11/22 capsule (Florastor) acetaminophen 325 mg tablet 650 mg PO Q6 PRN Fever Or Pain 11/06/21 04/11/22 (Tylenol) atorvastatin 80 mg tablet 80 mg PO QPM 11/06/21 04/11/22 docusate sodium 100 mg capsule 100 mg PO BID 11/06/21 04/11/22 gabapentin 100 mg capsule 200 mg PO QPM 11/06/21 04/11/22 levothyroxine 88 mcg tablet 88 mcg PO DAILY@1230 11/06/21 04/11/22 pantoprazole 40 mg tablet,delayed 40 mg PO BID 11/06/21 04/11/22 release protein supplement 1 ea PO DAILY 11/06/21 04/11/22 vitamin B complex and vitamin C 1 cap PO DAILY 11/06/21 04/11/22 no.20-folic acid 1 mg capsule benzonatate 100 mg capsule 200 mg PO TID 04/11/22 04/11/22 ceftriaxone 1 gram solution for 1 g IM DAILY 04/11/22 04/11/22 injection dextromethorphan-guaifenesin 10 10 ml PO QID 04/11/22 04/11/22 mg-100 mg/5 mL oral syrup duloxetine 20 mg capsule,delayed 20 mg PO HS 04/11/22 04/11/22 release insulin glargine 100 unit/mL 15 unit subcut HS 04/11/22 04/11/22 subcutaneous solution (Lantus U-100 Insulin) ipratropium 0.5 mg-albuterol 3 mg 3 ml inhalation QID 04/11/22 04/11/22 (2.5 mg base)/3 mL nebulization soln sucroferric oxyhydroxide 500 mg 500 mg PO DAILY 04/11/22 04/11/22 chewable tablet (Velphoro) Previous Rx's Medication Instructions Recorded insulin lispro 100 unit/mL See Rx Instructions .Route 11/13/21 subcutaneous solution (Humalog .COMPLEX #10 mL U-100 Insulin) tramadol 50 mg tablet 25 mg PO BID PRN moderate-severe 11/13/21 pain #10 tabs Results & Data (ED) Vital Signs Vital Signs - 24 hr 04/11/22 12:37 04/11/22 14:19 Temperature 36.8 C Temperature Source Oral Pulse Rate 106 H Pulse Rate [Left Finger] 100 H Pulse Rhythm Regular Pulse Strength Normal Respiratory Rate 22 18 Respiratory Effort / Characteristics Non-Labored Spontaneous Respiratory Depth Normal Respiratory Pattern Regular Blood Pressure 136/71 Blood Pressure [Left Arm] 140/70 Blood Pressure Mean 92 Blood Pressure Mean [Left Arm] 93 Blood Pressure Position Sitting Pulse Oximetry 96 98 Oxygen Delivery Method Room Air Room Air Sepsis Recent Fever Within 48 Hours No Sepsis New/Unexplained Change in Mental Status No Sepsis Action Taken by Nursing No Action Required Laboratory Data Attestation: I reviewed the patient's lab results. Result diagrams: 04/11/22 13:55 04/11/22 13:55 Lab Results 04/11/22 04/11/22 04/11/22 Range/Units 13:55 13:55 14:16 WBC 5.54 (4.8-10.8) K/ul RBC 3.26 L (3.93-5.22) M/uL Hgb 10.9 L (12.0-16.0) g/dl Hct 32.6 L (34.1-44.9) % MCV 100.0 (80.0-100.0) fL MCH 33.4 (25.0-34.0) pg MCHC 33.4 (32.0-36.0) g/dL RDW Std Deviation 50.4 H (36.4-46.3) fL RDW Coeff of Juno 13.7 (11.5-14.5) % Plt Count 133 (130-400) K/uL MPV 9.6 (9.4-12.3) fL Immature Gran % (Auto) 0.4 % Neut % (Auto) 52.3 % Lymph % (Auto) 29.1 % [place] % (Auto) 11.2 % Eos % (Auto) 6.3 % Baso % (Auto) 0.7 % Neut # (Auto) 2.90 (1.4-6.5) K/uL Lymph # (Auto) 1.61 (1.2-3.4) K/uL [place] # (Auto) 0.62 (0.24-0.82) K/uL Eos # (Auto) 0.35 (0-0.50) K/uL Baso # (Auto) 0.04 (0-0.2) K/uL Immature Gran # (Auto) 0.02 (0.00-0.02) K/uL Sodium 133 L (136-145) mmol/L Potassium 3.7 (3.5-5.1) mmol/L Chloride 98 (98-107) mmol/L Carbon Dioxide 27 (21-32) mmol/L Anion Gap 8 (3-11) BUN 39 H (6-23) mg/dl Creatinine 3.77 H (0.6-1.2) mg/dl Est Cr Clr Drug Dosing 14.7 ml/min Est GFR ( Amer) 13.2 ml/min Est GFR (Non-Af Amer) 11.4 ml/min BUN/Creatinine Ratio 10.3 (10-20) Glucose 154 H (70-99(Fasting)) mg/dl Calcium 8.6 (8.5-10.1) mg/dl Phosphorus 5.4 H (2.5-4.9) mg/dl Magnesium 1.7 (1.7-2.4) mg/dl Total Bilirubin 0.4 (0.2-1.0) mg/dl AST 29 (13-39) U/L ALT 19 (7-52) U/L Alkaline Phosphatase 99 (34-104) U/L Total Protein 7.2 (6.0-8.3) gm/dl Albumin 3.3 L (3.4-5.0) gm/dl Globulin 3.9 (2.5-4.0) gm/dl Albumin/Globulin Ratio 0.8 L (0.9-2) Lipase 11 (11-82) U/L SARS-CoV-2, RNA, NAAT NEGATIVE (NEGATIVE) Administered Medications Albuterol (Albut/Ipratrop 3mg/0.5mg Neb 3 Ml Vial) 3 ml INH QIDR [facility]; Protocol Stop: 05/11/22 18:59 Last Admin: 04/11/22 19:32 Dose: 3 ml Documented By: EML Atorvastatin Calcium (Atorvastatin 40 Mg Tab) 80 mg PO QPM HUEY Stop: 05/11/22 20:59 Last Admin: 04/11/22 20:50 Dose: 80 mg Documented By: LAT Benzonatate (Benzonatate 100 Mg Capsule) 200 mg PO TID HUEY Stop: 05/11/22 20:59 Last Admin: 04/11/22 20:49 Dose: 200 mg Documented By: LAT Calamine/Phenol (Menthol-Zinc Oxide 360 Appln/120 Gm Tube) 1 appln EXT QS HUEY Stop: 05/11/22 17:39 Last Admin: 04/11/22 18:40 Dose: 1 appln Documented By: SML Docusate Sodium (Docusate Sodium 100 Mg Cap) 100 mg PO BID [facility] Stop: 05/11/22 20:59 Last Admin: 04/11/22 20:50 Dose: 100 mg Documented By: LAT Duloxetine HCl (Duloxetine Hcl 20 Mg Cap) 20 mg PO HS [facility] Stop: 05/11/22 20:59 Last Admin: 04/11/22 20:49 Dose: 20 mg Documented By: LAT Gabapentin (Gabapentin 100 Mg Cap) 200 mg PO QPM HUEY Stop: 05/11/22 20:59 Last Admin: 04/11/22 20:52 Dose: 200 mg Documented By: LAT Guaifenesin/Dextromethorphan (Guaifenesin/Dextrom Syrup 100mg/10mg 5ml Udc) 10 ml PO QID HUEY Stop: 05/11/22 20:59 Last Admin: 04/11/22 20:48 Dose: 10 ml Documented By: LAT Heparin Sodium (Porcine) (Heparin Sod 5,000 Unit/0.5 Ml Vial) 5,000 units SQ Q12 HUEY Stop: 05/11/22 20:59 Last Admin: 04/11/22 20:51 Dose: 5,000 units Documented By: LAT Insulin Aspart (Insulin Aspart Per Unit) 0 units SC ACHS HUEY Stop: 05/11/22 20:59 Last Admin: 04/11/22 20:44 Dose: 1 units Documented By: PHILIP Co-signed By: JERSEY Insulin Glargine (Lantus Per Unit Charge) 15 units SQ HS HUEY Stop: 05/11/22 20:59 Last Admin: 04/11/22 20:43 Dose: 15 units Documented By: LAT Co-signed By: JERSEY Pantoprazole Sodium (Pantoprazole 40 Mg Tab) 40 mg PO BID HUEY Stop: 05/11/22 20:59 Last Admin: 04/11/22 20:51 Dose: 40 mg Documented By: LAT Saccharomyces Boulardii (Saccharomyces Boulardii 250 Mg Cap) 250 mg PO BID HUEY Stop: 05/11/22 20:59 Last Admin: 04/11/22 20:52 Dose: 250 mg Documented By: LAT Discontinued Medications Sevelamer HCl (Sevelamer Hcl 800 Mg Tablet) 800 mg PO TIDM HUEY Stop: 05/11/22 17:39 Last Admin: 04/11/22 17:57 Dose: Not Given Documented By: SML Imaging Data Radiologist's Impression: Chest X-Ray 04/11/22 12:45 XR chest 1V portable HISTORY: 72 years-old Female RSV and SOB acute shortness of breath COMPARISON: Chest radiograph 11/06/2021 TECHNIQUE: AP view of the chest FINDINGS: The cardiac silhouette is enlarged. Possible pulmonary vascular congestion. R ight IJ dual-lumen hemodialysis catheter distal tip projects over the inferior SVC/superior cavoatrial junction. No pneumothorax or large pleural effusion. Mild interstitial coarsening is similar to prior. No airspace consolidation typical for pneumonia. Mild hypoinflation. Degenerative changes of the shoulders and spine. IMPRESSION: 1. Cardiomegaly with equivocal pulmonary vascular congestion. 2. Hypoinflation with chronic interstitial coarsening. ACT 112: Negative or not required by law. The above report was generated using voice recognition software. It may contain grammatical, syntax or spelling errors. Electronically signed by: Dinesh Stacy M.D. 04/11/2022 2:27 PM Discharge Plan Visit Data Chief Complaint: Illness Stated Complaint: HYPOXIA ED Provider: Bryan Benitez Discharge Problem: Hypoxia, ESRD (end stage renal disease) on dialysis, RSV (acute bronchiolitis due to respiratory syncytial virus) Patient Disposition: Admitted As Inpatient Discharge Instructions Interventions: ED Discharge Assessment Last Done: 04/11/22 17:24
--- NOTE | 2022-04-11 16:56 | Electrocardiogram Report ---
Test Reason : Blood Pressure : / mmHG Vent. Rate : 100 BPM Atrial Rate : 100 BPM P-R Int : 180 ms QRS Dur : 088 ms QT Int : 376 ms P-R-T Axes : 032 -35 025 degrees QTc Int : 485 ms Poor data quality, interpretation may be adversely affected Normal sinus rhythm Left axis deviation Minimal voltage criteria for LVH, may be normal variant Inferior infarct (cited on or before 06-AUG-2021) Anterolateral infarct (cited on or before 04-AUG-2021) Abnormal ECG When compared with ECG of 06-NOV-2021 13:44, Nonspecific T wave abnormality no longer evident in Lateral leads Confirmed by Bo Carmichael ([id number]) on 04/11/2022 4:55:59 PM Referred By: REFERRED SELF Confirmed By:Bo Carmichael
[2022-04-11] MEDS ORDERED: SEVELAMER HCL 800 MG TABLET PO PRN (17:40)
[2022-04-11] MEDS ORDERED: POLYETHYLENE (MIRALAX) 17 GM PACK PO PRN (17:40)
[2022-04-11] MEDS ORDERED: bisacodyL 10 MG SUPP PR PRN (17:40)
[2022-04-11] MEDS ORDERED: ONDANSETRON INJ 2 MG/ML 2 ML VIAL IV PRN (17:40)
[2022-04-11] MEDS ORDERED: guaiFENesin/DEXTROM SYRUP 200MG/20MG 10ML UDC PO PRN (17:40)
[2022-04-11] MEDS ORDERED: ACETAMINOPHEN 325 MG TAB PO PRN (17:40)
[2022-04-11] MEDS ORDERED: traMADol HCL 50 MG TABLET PO PRN (17:40)
[2022-04-11] MEDS ORDERED: SEVELAMER HCL 800 MG TABLET PO SCH (17:40)
[2022-04-11] MEDS ORDERED: CARBOHYDRATES FOR HYPOGLYCEMIA PO PRN (17:52)
[2022-04-11] MEDS ORDERED: GLUCAGON FOR INJ 1 MG VIAL SQ PRN (17:52)
[2022-04-11] MEDS ORDERED: GLUCOSE 10 TAB/TUBE PO PRN (17:52)
[2022-04-11] MEDS ORDERED: DEXTROSE 50% 50 ML SYRINGE IV PRN (17:52)
[2022-04-11] MEDS ORDERED: GLUCOSE 40% GEL 15 GM TUBE PO PRN (17:52)
[2022-04-11] MEDS: MENTHOL-ZINC OXIDE 360 APPLN/120 GM TUBE EXT SCH ×2 (18:40→22:47)
[2022-04-11] MEDS ORDERED: ALBUT/IPRATROP 3MG/0.5MG NEB 3 ML VIAL NEB SCH (19:00)
[2022-04-11] MEDS: ALBUT/IPRATROP 3MG/0.5MG NEB 3 ML VIAL INH SCH (19:32)
[2022-04-11] MEDS: LANTUS PER UNIT CHARGE SQ SCH (20:43)
[2022-04-11] MEDS: INSULIN ASPART PER UNIT SC SCH (20:44)
[2022-04-11] MEDS: guaiFENesin/DEXTROM SYRUP 100MG/10MG 5ML UDC PO SCH (20:48)
[2022-04-11] MEDS: DULoxetine HCL 20 MG CAP PO SCH (20:49)
[2022-04-11] MEDS: BENZONATATE 100 MG CAPSULE PO SCH (20:49)
[2022-04-11] MEDS: ATORVASTATIN 40 MG TAB PO SCH (20:50)
[2022-04-11] MEDS: DOCUSATE SODIUM 100 MG CAP PO SCH (20:50)
[2022-04-11] MEDS: PANTOprazole 40 MG TAB PO SCH (20:51)
[2022-04-11] MEDS: HEPARIN SOD 5,000 UNIT/0.5 ML VIAL SQ SCH (20:51)
[2022-04-11] MEDS: GABAPENTIN 100 MG CAP PO SCH (20:52)
[2022-04-11] MEDS: SACCHAROMYCES BOULARDII 250 MG CAP PO SCH (20:52)
[2022-04-11] MEDS ORDERED: LANTUS PER UNIT CHARGE SQ SCH (21:00)
[2022-04-12] MEDS: LEVOTHYROXINE SODIUM 88 MCG TABLET PO SCH (05:15)
[2022-04-12 06:41] LABS: Basophils # (auto) 0.05 K/uL (0-0.2); Basophils % (auto) 0.8 %; Eosinophils # (auto) 0.42 K/uL (0-0.50); Eosinophils % (auto) 6.7 %; Hematocrit (blood only) 31.6 % (34.1-44.9); Hemoglobin 10.6 g/dl (12.0-16.0); Immature Granulocytes # (auto) 0.02 K/uL (0.00-0.02); Immature Granulocytes % (auto) 0.3 %; Lymphocytes % (auto) 36.9 %; Mean Corpuscular Hemoglobin 33.4 pg (25.0-34.0); Mean Corpuscular Hgb Conc 33.5 g/dL (32.0-36.0); Mean Corpuscular Volume 99.7 fL (80.0-100.0); Monocytes # (auto) 0.67 K/uL (0.24-0.82); Monocytes % (auto) 10.7 %; Neutrophils # (auto) 2.78 K/uL (1.4-6.5); Neutrophils % (auto) 44.6 %; Platelet Count 124 K/uL (130-400); RDW Coefficient of Variation 13.5 % (11.5-14.5); RDW Standard Deviation 50.2 fL (36.4-46.3); Red Blood Count 3.17 M/uL (3.93-5.22); White Blood Count 6.24 K/ul (4.8-10.8)
[2022-04-12 07:04] LABS: BUN Creatinine Ratio 10.5 (10-20); Calcium 8.4 mg/dl (8.5-10.1); Creatinine Clr Calc Pharmacy 13.2 ml/min; Est GFR (African American) 12.2 ml/min; Est GFR (Non-African American) 10.6 ml/min; Magnesium 1.7 mg/dl (1.7-2.4); Phosphorus 5.4 mg/dl (2.5-4.9); Potassium 3.5 mmol/L (3.5-5.1)
[2022-04-12] MEDS: ALBUT/IPRATROP 3MG/0.5MG NEB 3 ML VIAL INH SCH ×4 (07:40→19:21)
[2022-04-12] MEDS ORDERED: HEPARIN SOD (PORCINE) 1000 UNIT/ML IV ONE (08:35)
[2022-04-12] MEDS: INSULIN ASPART PER UNIT SC SCH ×4 (08:41→21:52)
[2022-04-12] MEDS: SACCHAROMYCES BOULARDII 250 MG CAP PO SCH ×2 (08:44→22:09)
[2022-04-12] MEDS: PANTOprazole 40 MG TAB PO SCH ×2 (08:44→22:09)
[2022-04-12] MEDS: guaiFENesin/DEXTROM SYRUP 100MG/10MG 5ML UDC PO SCH ×4 (08:44→22:07)
[2022-04-12] MEDS: BENZONATATE 100 MG CAPSULE PO SCH ×3 (08:44→22:06)
[2022-04-12] MEDS: NEPHROCAPS PO SCH (08:44)
[2022-04-12] MEDS: DOCUSATE SODIUM 100 MG CAP PO SCH ×2 (08:45→22:07)
[2022-04-12] MEDS: HEPARIN SOD 5,000 UNIT/0.5 ML VIAL SQ SCH ×2 (08:45→22:08)
[2022-04-12] MEDS: MENTHOL-ZINC OXIDE 360 APPLN/120 GM TUBE EXT SCH ×3 (08:49→22:15)
[2022-04-12] MEDS ORDERED: [UNRECOGNIZED DRUG - OTHER] TOP SCH (09:00)
[2022-04-12] MEDS ORDERED: DULoxetine HCL 30 MG CAP PO SCH (09:00)
--- NOTE | 2022-04-12 10:04 | Nephrology Consultation ---
Date of Consultation April 12, 2022 Assessment & Plan (1) ESRD (end stage renal disease) on dialysis: Patient with ESRD on dialysis Thursday at [facility]. She missed outpatient dialysis on Thursday due to ill health. Main complaint now is shortness of breath. Chest x-ray showed pulmonary edema. We will dialyze her today for 3 and half hours on a 3K bath with a net UF of 3 L. (2) RSV (acute bronchiolitis due to respiratory syncytial virus): Patient found to have RSV. Chest x-ray showing pulmonary edema but no evidence of pneumonia. Continue conservative management per primary team. We will attempt aggressive ultrafiltration to ease her respiratory distress. History of Present Illness Reason for Consultation: ESRD and RSV Requesting Physician: Rambo Mead MD Attending Physician: Rambo Mead MD History of Present Illness Is a 72-year-old female with history of type 2 diabetes, hypothyroidism, depression, coronary disease, peripheral arterial disease, ischemic cardiomyopathy EF of 30% and ESRD on dialysis Thursday at [facility] was admitted with upper respiratory tract symptoms found to have RSV. She has been coughing with runny nose for the past 5 days. She complains of shortness of breath. Her last outpatient dialysis was on Thursday. She has a right permacatheter. She missed dialysis yesterday due to not feeling well. Her potassium is 3.5. Chest x-ray showed pulmonary edema but no pneumonia. She reports mild improvement in symptoms since admission. Patient was initially seen in consultation. I later returned to see the patient while on dialysis. She was seen and examined while on dialysis Allergies Allergy/AdvReac Type Severity Reaction Status Date / Time cyclobenzaprine Allergy Unknown ON MED LIST Verified 04/11/22 15:16 [From Flexeril] Home Medications Medication Instructions Recorded Confirmed Type Saccharomyces boulardii 250 mg 250 mg PO BID 11/06/21 04/11/22 History capsule (Florastor) acetaminophen 325 mg tablet 650 mg PO Q6 PRN Fever Or Pain 11/06/21 04/11/22 History (Tylenol) atorvastatin 80 mg tablet 80 mg PO QPM 11/06/21 04/11/22 History docusate sodium 100 mg capsule 100 mg PO BID 11/06/21 04/11/22 History gabapentin 100 mg capsule 200 mg PO QPM 11/06/21 04/11/22 History levothyroxine 88 mcg tablet 88 mcg PO DAILY@1230 11/06/21 04/11/22 History pantoprazole 40 mg tablet,delayed 40 mg PO BID 11/06/21 04/11/22 History release protein supplement 1 ea PO DAILY 11/06/21 04/11/22 History vitamin B complex and vitamin C 1 cap PO DAILY 11/06/21 04/11/22 History no.20-folic acid 1 mg capsule insulin lispro 100 unit/mL See Rx Instructions .Route 11/13/21 04/11/22 Rx subcutaneous solution (Humalog .COMPLEX #10 mL U-100 Insulin) tramadol 50 mg tablet 25 mg PO BID PRN moderate-severe 11/13/21 04/11/22 Rx pain #10 tabs benzonatate 100 mg capsule 200 mg PO TID 04/11/22 04/11/22 History ceftriaxone 1 gram solution for 1 g IM DAILY 04/11/22 04/11/22 History injection dextromethorphan-guaifenesin 10 10 ml PO QID 04/11/22 04/11/22 History mg-100 mg/5 mL oral syrup duloxetine 20 mg capsule,delayed 20 mg PO HS 04/11/22 04/11/22 History release insulin glargine 100 unit/mL 15 unit subcut HS 04/11/22 04/11/22 History subcutaneous solution (Lantus U-100 Insulin) ipratropium 0.5 mg-albuterol 3 mg 3 ml inhalation QID 04/11/22 04/11/22 History (2.5 mg base)/3 mL nebulization soln sucroferric oxyhydroxide 500 mg 500 mg PO DAILY 04/11/22 04/11/22 History chewable tablet (Velphoro) Patient History Medical History Anemia in chronic renal disease Aortic stenosis Chronic respiratory failure with hypoxia Coronary artery disease Depression Diabetic peripheral neuropathy Encounter for removal of vascular catheter 08/2021 - Dr Inocencio Pablo (HD catheter) ESRD (end stage renal disease) on dialysis History of CVA (cerebrovascular accident) History of gastrointestinal bleeding Hypertension Hypothyroidism Ischemic cardiomyopathy Obesity Obstructive sleep apnea PAD (peripheral artery disease) Surgical History H/O foot surgery 08/2021 - right calcaneal resection 2nd to osteomyelitis - Dr Dick Naqvi Family History Other No pertinent family history Social History Smoking Status: Never smoker Second Hand Exposure: No; Hx Alcohol Use: No Hx Substance Use: No Preferred Language: Frisian Communication Ability: Effective Orbitread Operator Required: No Beliefs That Will Affect Care: None Current Living Situation: Prison Current Living Situation Comment: [facility] Other Information That Helps Us Care for You: No Feels Safe at Home: Yes Safety Concerns: Feels Safe At This Time Assistive Devices: Wheelchair Review of Systems Review of Systems: All other systems were reviewed and negative except as noted in HPI Physical Exam Physical Exam: General exam: Appears comfortable, no acute distress HEENT: Pupils are equal and reactive to light Neck: No JVD, neck is supple trachea is midline Respiratory system: Wheezing bilaterally. Gastrointestinal: Abdomen is soft, non distended, non tender, bowel sounds are present CVS: Regular rate and rhythm. No murmurs, rubs or gallops Musculoskeletal: No joint or muscle tenderness Extremities: Non tender, no edema, peripheral pulses are present Neuro: Oriented, no tremors, no focal neurological deficits Skin: No rashes Results & Data ([facility]) Vital Signs (Past 12 Hours) Vital Signs Temp Pulse Resp BP Pulse Ox O2 Del Method O2 Flow Rate 04/12/22 07:59 36.7 C 101 H 20 143/82 H 93 Nasal Cannula 04/12/22 07:40 103 H 19 93 Nasal Cannula 1.5 04/12/22 02:15 36.9 C 107 H 18 153/82 H 94 Nasal Cannula 2 04/11/22 22:44 95 Nasal Cannula 2 04/11/22 22:39 37.2 C 104 H 20 169/93 H 90 Room Air Laboratory Results 04/12/22 06:26 04/11/22 04/11/22 04/12/22 13:55 13:55 06:26 WBC 5.54 6.24 RBC 3.26 L 3.17 L MCV 100.0 99.7 MCH 33.4 33.4 MCHC 33.4 33.5 RDW Std Deviation 50.4 H 50.2 H RDW Coeff of Juno 13.7 13.5 Plt Count 133 124 L MPV 9.6 10.0 Phosphorus 5.4 H Albumin 3.3 L 04/12/22 06:26 WBC RBC MCV MCH MCHC RDW Std Deviation RDW Coeff of Juno Plt Count MPV Phosphorus 5.4 H Albumin
--- NOTE | 2022-04-12 16:49 | Hospitalist Progress Note ---
Date of Service April 12, 2022 Assessment & Plan (1) RSV (acute bronchiolitis due to respiratory syncytial virus): Plan: -Patient was Diagnosed with RSV as an outpatient , but continued to have cough sore throat, runny nose and headache, so she came to the hospital - We will provide supportive care. She feels overall much improved - CXR without evidence of superimposed bacterial pneumonia or overwhelming pulmonary vascular congestion. (2) ESRD (end stage renal disease) on dialysis: Plan: - Receives M/W/F as outpatient, missed a session because she was feeling unwell -She completed a session today -Nephrology on consult (3) Coronary artery disease: Plan: - Chronic, stable. - Continue statin. No longer on antiplatelet due to previous GI bleed, not on beta-noel or SONDRA/ARB due to hypotension. (4) PAD (peripheral artery disease): Plan: - Continue statin, no antiplatelet therapy due to GI bleeding. Patient has been seen by vascular surgery in the past, patient is strongly opposed to amputation. - Evaluated by vascular surgery on last admission from November, determined not to be candidate for revascularization. - Patient is nonambulatory, uses a Heather lift for transfers. (5) Ischemic cardiomyopathy: Plan: - Echo August 2021: EF 30 to 35%, global hypokinesis of the ventricle, RSVP 40 to 50 mmHg. - Patient appears euvolemic on exam, equivocal pulmonary vascular congestion noted on CXR, she will go to dialysis tomorrow. (6) Aortic stenosis: Plan: - Moderate to severe, maintain adequate volume status, no acute needs. (7) Diabetes: Plan: - Continue on Lantus 15 units at night, sliding scale insulin added on. - Continue gabapentin for neuropathy. (8) Depression: Plan: - Continue Cymbalta. (9) Hypothyroidism: Plan: - Continue levothyroxine 88 mcg daily. Plan - Hopefully d/c tomorrow - SCDs, heparin DVT PPx. - DNR/DNI. Admission and Anticipated Discharge Date Admission Date: April 11, 2022 Subjective patient seen and examined, says she feels a lot better, denies fevers or chills Review of Systems Review of Systems: All systems reviewed are negative, apart from the ones contained in the history. Physical Exam Physical Exam: The patient is awake, alert and oriented 3, well developed and well nourished, normocephalic and atraumatic, lying in bed and in no acute distress. HEENT--PERRL, EOMI, mucous membranes and oropharynx mildly dry Neck--supple. No JVD. No bruits. Thyroid normal, trachea midline, no adenopathy. Heart--normal S1 and S2. No murmurs, rubs or gallops. Lungs--clear bilaterally, no respiratory distress, no accessory muscle use. Abdomen--normal bowel sounds and soft. Mild epigastric and left sided abdominal pain Extremities--no cyanosis or clubbing. No edema. Dermatologic--normal skin turgor, normal color, no abnormal lymph nodes, no rash. Neurologic--cranial nerves II through XII grossly intact. Rheumatologic--normal range of motion. Psychiatric--normal affect. Results & Data Results & Data ([facility]) Vital Signs (Past 12 Hours) Vital Signs Temp Pulse Pulse Pulse Resp BP BP 04/12/22 14:14 100 H 04/12/22 15:51 97.9 F 95 H 18 04/12/22 15:45 97 H 17 04/12/22 13:27 04/12/22 13:00 97.9 F 98 H 112/60 04/12/22 12:30 101 H 95/56 L 04/12/22 12:00 96 H 107/72 04/12/22 11:30 96 H 96/54 L 04/12/22 11:00 103 H 116/65 04/12/22 10:30 105 H 91/50 L 04/12/22 10:00 102 H 106/60 04/12/22 09:30 101 H 109/62 04/12/22 09:18 97.9 F 105 H 04/12/22 08:00 100 H 04/12/22 08:00 04/12/22 07:59 98.1 F 101 H 20 04/12/22 07:40 103 H 19 BP Pulse Ox O2 Del Method O2 Flow Rate 04/12/22 14:14 04/12/22 15:51 126/76 96 Nasal Cannula 2 04/12/22 15:45 98 Nasal Cannula 2 04/12/22 13:27 Nasal Cannula 2 04/12/22 13:00 04/12/22 12:30 04/12/22 12:00 04/12/22 11:30 04/12/22 11:00 04/12/22 10:30 04/12/22 10:00 04/12/22 09:30 04/12/22 09:18 04/12/22 08:00 04/12/22 08:00 Nasal Cannula 2 04/12/22 07:59 143/82 H 93 Nasal Cannula 04/12/22 07:40 93 Nasal Cannula 1.5 PG Care Time/CCT Total # of Minutes Spent Total Time Spent with Patient: Total time spent is greater than 50% in coordination of care (as documented) at patient's floor/unit and/or counseling patient: Coding Level of Care Code 16768 Subseq Hosp Care Lvl 2 Diagnoses RSV (acute bronchiolitis due to respiratory syncytial virus) J21.0 ESRD (end stage renal disease) on dialysis N18.6; Z99.2 Coronary artery disease I25.10 PAD (peripheral artery disease) I73.9 Ischemic cardiomyopathy I25.5 Aortic stenosis I35.0 Diabetes E11.9 Depression F32.A Hypothyroidism E03.9 Time Spent (min) 35
[2022-04-12] MEDS: LANTUS PER UNIT CHARGE SQ SCH (21:52)
[2022-04-12] MEDS: DULoxetine HCL 20 MG CAP PO SCH (22:07)
[2022-04-12] MEDS: GABAPENTIN 100 MG CAP PO SCH (22:07)
[2022-04-12] MEDS: ATORVASTATIN 40 MG TAB PO SCH (22:08)
[2022-04-13] MEDS: LEVOTHYROXINE SODIUM 88 MCG TABLET PO SCH (05:34)
[2022-04-13] MEDS: ALBUT/IPRATROP 3MG/0.5MG NEB 3 ML VIAL INH SCH ×4 (07:45→19:25)
[2022-04-13 07:52] LABS: BUN Creatinine Ratio 8.9 (10-20); Calcium 8.5 mg/dl (8.5-10.1); Creatinine Clr Calc Pharmacy 18.5 ml/min; Est GFR (African American) 18.8 ml/min; Est GFR (Non-African American) 16.2 ml/min; Potassium 3.3 mmol/L (3.5-5.1)
[2022-04-13] MEDS: INSULIN ASPART PER UNIT SC SCH ×4 (08:24→21:50)
[2022-04-13] MEDS: SACCHAROMYCES BOULARDII 250 MG CAP PO SCH ×2 (08:33→21:58)
[2022-04-13] MEDS: BENZONATATE 100 MG CAPSULE PO SCH ×3 (08:33→22:00)
[2022-04-13] MEDS: NEPHROCAPS PO SCH (08:33)
[2022-04-13] MEDS: DOCUSATE SODIUM 100 MG CAP PO SCH ×2 (08:34→22:00)
[2022-04-13] MEDS: PANTOprazole 40 MG TAB PO SCH ×2 (08:34→21:58)
[2022-04-13] MEDS: guaiFENesin/DEXTROM SYRUP 100MG/10MG 5ML UDC PO SCH ×4 (08:35→21:55)
[2022-04-13] MEDS: HEPARIN SOD 5,000 UNIT/0.5 ML VIAL SQ SCH ×2 (08:35→21:58)
[2022-04-13] MEDS: MENTHOL-ZINC OXIDE 360 APPLN/120 GM TUBE EXT SCH ×3 (08:39→22:00)
--- NOTE | 2022-04-13 10:41 | Nephrology Progress Note ---
Date of Service April 13, 2022 Assessment & Plan (1) ESRD (end stage renal disease) on dialysis: Plan: Patient with ESRD on dialysis Thursday at [facility]. She missed outpatient dialysis on Thursday due to ill health. Main complaint now is shortness of breath. Chest x-ray showed pulmonary edema. Patient tolerated dialysis well yesterday for 3 and half hours on a 3K bath with a net UF of 3 L. -Next dialysis will be tomorrow and this can be outpatient if patient is discharged (2) RSV (acute bronchiolitis due to respiratory syncytial virus): Plan: Patient found to have RSV. Chest x-ray showing pulmonary edema but no evidence of pneumonia. Continue conservative management per primary team. We will attempt aggressive ultrafiltration with dialysis tomorrow to ease her respiratory distress. Admission and Anticipated Discharge Date Admission Date: April 11, 2022 Subjective Seen for ESRD. She had dialysis yesterday with net negative of 3 L. She feels better today. Breathing has improved. Review of Systems Review of Systems: All other systems were reviewed and negative except as noted in HPI Physical Exam Physical Exam: General exam: Appears comfortable, no acute distress HEENT: Pupils are equal and reactive to light Neck: No JVD, neck is supple trachea is midline Respiratory system: Wheezing bilaterally. Gastrointestinal: Abdomen is soft, non distended, non tender, bowel sounds are present CVS: Regular rate and rhythm. No murmurs, rubs or gallops Musculoskeletal: No joint or muscle tenderness Extremities: Non tender, no edema, peripheral pulses are present Neuro: Oriented, no tremors, no focal neurological deficits Skin: No rashes Results & Data ([facility]) Vital Signs (Past 12 Hours) Vital Signs Temp Pulse Pulse Resp BP Pulse Ox O2 Del Method 04/13/22 09:27 Room Air 04/13/22 07:56 36.8 C 88 18 121/71 90 Room Air 04/13/22 07:45 90 18 92 Room Air 04/13/22 02:58 36.8 C 99 H 20 156/82 H 91 Room Air 04/12/22 23:09 36.9 C 100 H 18 137/77 93 Room Air Laboratory Results 04/13/22 07:11 04/12/22 15:56 Phosphorus 3.4 D
--- NOTE | 2022-04-13 13:44 | Hospitalist Progress Note ---
Date of Service April 13, 2022 Assessment & Plan (1) RSV (acute bronchiolitis due to respiratory syncytial virus): Plan: -Patient was Diagnosed with RSV as an outpatient , but continued to have cough sore throat, runny nose and headache, so she came to the hospital - She feels overall much improved after management - CXR without evidence of superimposed bacterial pneumonia or overwhelming pulmonary vascular congestion. -Now ready to discharge back home when Litter transportation is arranged (2) ESRD (end stage renal disease) on dialysis: Plan: - Receives M/W/F as outpatient, missed a session because she was feeling unwell -She completed a session today -Nephrology on consult (3) Coronary artery disease: Plan: - Chronic, stable. - Continue statin. No longer on antiplatelet due to previous GI bleed, not on beta-noel or SONDRA/ARB due to hypotension. (4) PAD (peripheral artery disease): Plan: - Continue statin, no antiplatelet therapy due to GI bleeding. Patient has been seen by vascular surgery in the past, patient is strongly opposed to amputation. - Evaluated by vascular surgery on last admission from November, determined not to be candidate for revascularization. - Patient is nonambulatory, uses a Heather lift for transfers. (5) Ischemic cardiomyopathy: Plan: - Echo August 2021: EF 30 to 35%, global hypokinesis of the ventricle, RSVP 40 to 50 mmHg. - Patient appears euvolemic on exam, equivocal pulmonary vascular congestion noted on CXR, she will go to dialysis tomorrow. (6) Aortic stenosis: Plan: - Moderate to severe, maintain adequate volume status, no acute needs. (7) Diabetes: Plan: - Continue on Lantus 15 units at night, sliding scale insulin added on. - Continue gabapentin for neuropathy. (8) Depression: Plan: - Continue Cymbalta. (9) Hypothyroidism: Plan: - Continue levothyroxine 88 mcg daily. Plan - Now ready to discharge back home when Litter transportation is arranged - SCDs, heparin DVT PPx. - DNR/DNI. Admission and Anticipated Discharge Date Admission Date: April 11, 2022 Subjective patient seen and examined, feels a lot better. Ready to return to her residence when litter transportation is arranged Review of Systems Review of Systems: All systems reviewed are negative, apart from the ones contained in the history. Physical Exam Physical Exam: The patient is awake, alert and oriented 3, well developed and well nourished, normocephalic and atraumatic, lying in bed and in no acute distress. HEENT--PERRL, EOMI, mucous membranes and oropharynx mildly dry Neck--supple. No JVD. No bruits. Thyroid normal, trachea midline, no adenopathy. Heart--normal S1 and S2. No murmurs, rubs or gallops. Lungs--clear bilaterally, no respiratory distress, no accessory muscle use. Abdomen--normal bowel sounds and soft. Mild epigastric and left sided abdominal pain Extremities--no cyanosis or clubbing. No edema. Dermatologic--normal skin turgor, normal color, no abnormal lymph nodes, no rash. Neurologic--cranial nerves II through XII grossly intact. Rheumatologic--normal range of motion. Psychiatric--normal affect. Results & Data Results & Data ([facility]) Vital Signs (Past 12 Hours) Vital Signs Temp Pulse Pulse Pulse Resp BP Pulse Ox 04/13/22 11:32 97.5 F L 90 18 144/84 H 98 04/13/22 11:25 90 16 92 04/13/22 06:39 90 04/13/22 09:27 04/13/22 07:56 98.2 F 88 18 121/71 90 04/13/22 07:45 90 18 92 04/13/22 02:58 98.2 F 99 H 20 156/82 H 91 O2 Del Method 04/13/22 11:32 Room Air 04/13/22 11:25 Room Air 04/13/22 06:39 04/13/22 09:27 Room Air 04/13/22 07:56 Room Air 04/13/22 07:45 Room Air 04/13/22 02:58 Room Air PG Care Time/CCT Total # of Minutes Spent Total Time Spent with Patient: Total time spent is greater than 50% in coordination of care (as documented) at patient's floor/unit and/or counseling patient: Coding Level of Care Code 67836 Subseq Hosp Care Lvl 2 Diagnoses RSV (acute bronchiolitis due to respiratory syncytial virus) J21.0 ESRD (end stage renal disease) on dialysis N18.6; Z99.2 Coronary artery disease I25.10 PAD (peripheral artery disease) I73.9 Ischemic cardiomyopathy I25.5 Aortic stenosis I35.0 Diabetes E11.9 Depression F32.A Hypothyroidism E03.9 Time Spent (min) 35
[2022-04-13] MEDS: LANTUS PER UNIT CHARGE SQ SCH (21:50)
[2022-04-13] MEDS: DULoxetine HCL 20 MG CAP PO SCH (21:57)
[2022-04-13] MEDS: GABAPENTIN 100 MG CAP PO SCH (21:57)
[2022-04-13] MEDS: ATORVASTATIN 40 MG TAB PO SCH (21:59)
[2022-04-14] MEDS: LEVOTHYROXINE SODIUM 88 MCG TABLET PO SCH (06:32)
[2022-04-14] MEDS: MENTHOL-ZINC OXIDE 360 APPLN/120 GM TUBE EXT SCH ×3 (07:10→22:11)
[2022-04-14] MEDS: BENZONATATE 100 MG CAPSULE PO SCH ×3 (07:11→20:23)
[2022-04-14] MEDS: PANTOprazole 40 MG TAB PO SCH ×2 (07:11→20:35)
[2022-04-14] MEDS: NEPHROCAPS PO SCH (07:11)
[2022-04-14] MEDS: SACCHAROMYCES BOULARDII 250 MG CAP PO SCH ×2 (07:11→20:34)
[2022-04-14] MEDS: DOCUSATE SODIUM 100 MG CAP PO SCH ×2 (07:12→20:24)
[2022-04-14] MEDS: guaiFENesin/DEXTROM SYRUP 100MG/10MG 5ML UDC PO SCH ×4 (07:12→20:31)
[2022-04-14] MEDS: HEPARIN SOD 5,000 UNIT/0.5 ML VIAL SQ SCH ×2 (07:15→20:33)
[2022-04-14] MEDS: INSULIN ASPART PER UNIT SC SCH ×4 (08:09→20:32)
[2022-04-14] MEDS ORDERED: SODIUM CHLORIDE 0.9% 1000ML 1,000 ML IV PRN (08:14)
[2022-04-14] MEDS ORDERED: EPOETIN ALFA 4,000 UNIT/ML VIAL IV ONE (08:30)
[2022-04-14] MEDS: ALBUT/IPRATROP 3MG/0.5MG NEB 3 ML VIAL INH SCH ×4 (08:30→19:50)
[2022-04-14] MEDS ORDERED: HEPARIN SOD (PORCINE) 1000 UNIT/ML IV ONE (08:30)
[2022-04-14 08:51] LABS: Hemoglobin 10.8 g/dl (12.0-16.0); Mean Corpuscular Hemoglobin 33.1 pg (25.0-34.0); Mean Corpuscular Hgb Conc 33.8 g/dL (32.0-36.0); Mean Corpuscular Volume 98.2 fL (80.0-100.0); Platelet Count 147 K/uL (130-400); RDW Coefficient of Variation 13.1 % (11.5-14.5); RDW Standard Deviation 46.9 fL (36.4-46.3); Red Blood Count 3.26 M/uL (3.93-5.22); White Blood Count 7.67 K/ul (4.8-10.8)
[2022-04-14] MEDS ORDERED: MIDODRINE HCL 10 MG TAB PO SCH (09:00)
[2022-04-14 09:14] LABS: Calcium 8.6 mg/dl (8.5-10.1); Creatinine Clr Calc Pharmacy 12.7 ml/min; Est GFR (African American) 11.9 ml/min; Est GFR (Non-African American) 10.2 ml/min; Potassium 3.7 mmol/L (3.5-5.1)
--- NOTE | 2022-04-14 13:23 | XRay Report ---
XR chest 1V portable HISTORY: 72 years-old Female hypoxia, rsv acute hypoxia with RSV COMPARISON: Chest radiograph 04/11/2022 TECHNIQUE: AP view of the chest FINDINGS: Cardiac silhouette is enlarged. Dual lumen right IJ hemodialysis catheter is noted with distal tip in the expected location of the superior cavoatrial junction. No pneumothorax, large pleural effusion o r overt pulmonary edema. Hypoinflation. Mild linear left basilar atelectasis. Interstitial coarsening is similar to prior. Degenerative changes of the shoulders and spine. IMPRESSION: Mild linear left lung base atelectasis. No airspace consolidation typical for pneumonia. ACT 112: Negative or not required by law. The above report was generated using voice recognition software. It may contain grammatical, syntax o r spelling errors. Electronically signed by: Dinesh Stacy M.D. 04/14/2022 1:22 PM
[2022-04-14] MEDS ORDERED: Nursing to Pharmacy Communication SCH (14:45)
[2022-04-14 15:22] LABS: HBSAG NON-REACTIVE (NON-REACTIVE); Hepatitis B Surface Ab, Quant <5 mIU/mL (> OR = 10)
[2022-04-14] MEDS: HEPARIN SOD (PORCINE) 1000 UNIT/ML IV SCH ×3 (16:13→18:05)
--- NOTE | 2022-04-14 19:01 | Hospitalist Progress Note ---
Date of Service April 14, 2022 Assessment & Plan (1) RSV (acute bronchiolitis due to respiratory syncytial virus): Plan: -Patient was Diagnosed with RSV as an outpatient , but continued to have cough sore throat, runny nose and headache, so she came to the hospital - She feels overall much improved after management - CXR without evidence of superimposed bacterial pneumonia or overwhelming pulmonary vascular congestion. Repeat CXR today as still needing oxygen. Procalcitonin ordered to assess need for antibiotics to cover for secondary bacterial pneumonia She is wheezing although no history of reactive airway disease. Wheezing common with RSV and doesn't usually respond to duonebs and steroids but given improvement with duonebs will consider short course of steroids if she remains hypoxic and wheezing tomorrow. (2) ESRD (end stage renal disease) on dialysis: Plan: - Receives M/W/F as outpatient, missed a session because she was feeling unwell - Planning on dialysis today - Nephrology on consult (3) Coronary artery disease: Plan: - Chronic, stable. - Continue statin. No longer on antiplatelet due to previous GI bleed, not on beta-noel or SONDRA/ARB due to hypotension. (4) PAD (peripheral artery disease): Plan: - Continue statin, no antiplatelet therapy due to GI bleeding. Patient has been seen by vascular surgery in the past, patient is strongly opposed to amputation. - Evaluated by vascular surgery on last admission from November, determined not to be candidate for revascularization. - Patient is nonambulatory, uses a Heather lift for transfers. (5) Ischemic cardiomyopathy: Plan: - Echo August 2021: EF 30 to 35%, global hypokinesis of the ventricle, RSVP 40 to 50 mmHg. - Patient appears euvolemic on exam, equivocal pulmonary vascular congestion noted on CXR, she will go to dialysis tomorrow. (6) Aortic stenosis: Plan: - Moderate to severe, maintain adequate volume status, no acute needs. (7) Diabetes: Plan: - Continue on Lantus 15 units at night, sliding scale insulin added on. - Continue gabapentin for neuropathy. (8) Depression: Plan: - Continue Cymbalta. (9) Hypothyroidism: Plan: - Continue levothyroxine 88 mcg daily. Plan - SCDs, heparin DVT PPx. - DNR/DNI. - planning on discharge back to [facility] tomorrow as receiving dialysis today Admission and Anticipated Discharge Date Admission Date: April 11, 2022 Subjective Reports feeling much improved since admission. Mostly fatigued at this time rather than short of breath but not back to her baseline. Cough improved. No nasal congestion, fever or chills. Review of Systems Review of Systems: All systems reviewed & are unremarkable except as noted in HPI & below Physical Exam Constitutional: WD/WN, vitals as above Respiratory: normal respiratory effort; no respiratory distress Auscultation: + wheezes (expiraotry throughout); no crackles Cardiovascular: Rate/Rhythm: regular rate and regular rhythm Gastrointestinal (Abdomen): normal bowel sounds, soft, nontender, no hepatosplenomegaly Results & Data Results & Data ([facility]) Vital Signs (Past 12 Hours) Vital Signs Temp Pulse Pulse Pulse Pulse Resp BP 04/14/22 18:30 37 C 104 H 04/14/22 18:00 99 H 105/60 04/14/22 14:05 100 H 04/14/22 17:30 100 H 108/61 04/14/22 17:00 97 H 110/67 04/14/22 16:30 97 H 106/62 04/14/22 16:00 95 H 108/59 L 04/14/22 15:30 94 H 105/67 04/14/22 15:00 92 H 151/88 H 04/14/22 14:50 93 H 150/79 H 04/14/22 14:41 36.7 C 96 H 100 H 04/14/22 11:46 107 H 20 04/14/22 11:08 36.8 C 96 H 18 04/14/22 10:57 04/14/22 08:30 94 H 18 04/14/22 07:50 36.7 C 93 H 18 BP Pulse Ox O2 Del Method O2 Flow Rate 04/14/22 18:30 137/72 04/14/22 18:00 04/14/22 14:05 04/14/22 17:30 04/14/22 17:00 04/14/22 16:30 04/14/22 16:00 04/14/22 15:30 04/14/22 15:00 04/14/22 14:50 04/14/22 14:41 04/14/22 11:46 96 Nasal Cannula 2 04/14/22 11:08 126/77 94 Nasal Cannula 2 04/14/22 10:57 Room Air 12/12/22 08:30 93 Nasal Cannula 1 04/14/22 07:50 129/79 94 Nasal Cannula 2 PG Care Time/CCT Total # of Minutes Spent Total Time Spent with Patient: Total time spent is greater than 50% in coordination of care (as documented) at patient's floor/unit and/or counseling patient: Coding Level of Care Code 34376 Subseq Hosp Care Lvl 2 Diagnoses RSV (acute bronchiolitis due to respiratory syncytial virus) J21.0 ESRD (end stage renal disease) on dialysis N18.6; Z99.2 Coronary artery disease I25.10 PAD (peripheral artery disease) I73.9 Ischemic cardiomyopathy I25.5 Aortic stenosis I35.0 Diabetes E11.9 Depression F32.A Hypothyroidism E03.9
--- NOTE | 2022-04-14 19:19 | Nephrology Progress Note ---
Date of Service April 14, 2022 Assessment & Plan (1) ESRD (end stage renal disease) on dialysis: Plan: Patient with ESRD on dialysis Thursday at [facility]. She missed outpatient dialysis on Wednesday 04/11 due to ill health. Main complaint now is shortness of breath. Chest x-ray showed pulmonary edema. Patient tolerated dialysis well 04/12 for 3 and half hours on a 3K bath with a net UF of 3 L. -for HD today > 3.5 hrs w/ target 3L off>>got 2.6L off (2) RSV (acute bronchiolitis due to respiratory syncytial virus): Plan: Patient found to have RSV. Chest x-ray showing pulmonary edema but no evidence of pneumonia. Continue conservative management per primary team. We will attempt aggressive ultrafiltration with dialysis to ease her respiratory distress adn hypoxia. Admission and Anticipated Discharge Date Admission Date: April 11, 2022 Subjective weak. w/ ongoing cough productive of dark sputum. on 3L nc when I saw her at 0900 Review of Systems Review of Systems: All systems reviewed & are unremarkable except as noted in Subjective Physical Exam Constitutional: well developed, well nourished, + ill appearing, + frail appearing and cooperative; no acute distress and not in distress Eyes: EOM intact bilaterally ENMT: Ears: no external ear abnormality Nose: no external nose abnormality Mouth: + dry oral mucous membranes Neck: no nuchal rigidity Respiratory: normal respiratory effort Auscultation: + diminished lung sounds Cardiovascular: Rate/Rhythm: regular rate and regular rhythm Extremities: no edema Gastrointestinal (Abdomen): Inspection/Auscultation: normal bowel sounds Percussion/Palpation: abdomen soft; abdomen nontender Musculoskeletal: Extremities: strength 5/5 throughout Skin: no rashes, warm and dry Neurologic: davis, fluent speech, no tremor Results & Data ([facility]) Vital Signs (Past 12 Hours) Vital Signs Temp Pulse Pulse Pulse Pulse Resp BP 04/14/22 18:30 37 C 104 H 04/14/22 18:00 99 H 105/60 04/14/22 14:05 100 H 04/14/22 17:30 100 H 108/61 04/14/22 17:00 97 H 110/67 04/14/22 16:30 97 H 106/62 04/14/22 16:00 95 H 108/59 L 04/14/22 15:30 94 H 105/67 12/12/22 15:00 92 H 151/88 H 04/14/22 14:50 93 H 150/79 H 04/14/22 14:41 36.7 C 96 H 100 H 04/14/22 11:46 107 H 20 04/14/22 11:08 36.8 C 96 H 18 04/14/22 10:57 04/14/22 08:30 94 H 18 04/14/22 07:50 36.7 C 93 H 18 BP Pulse Ox O2 Del Method O2 Flow Rate 04/14/22 18:30 137/72 04/14/22 18:00 04/14/22 14:05 04/14/22 17:30 04/14/22 17:00 04/14/22 16:30 04/14/22 16:00 04/14/22 15:30 04/14/22 15:00 04/14/22 14:50 04/14/22 14:41 04/14/22 11:46 96 Nasal Cannula 2 04/14/22 11:08 126/77 94 Nasal Cannula 2 04/14/22 10:57 Room Air 04/14/22 08:30 93 Nasal Cannula 1 04/14/22 07:50 129/79 94 Nasal Cannula 2 Laboratory Results 04/14/22 08:36 04/14/22 08:36
[2022-04-14] MEDS: LANTUS PER UNIT CHARGE SQ SCH (20:31)
[2022-04-14] MEDS: GABAPENTIN 100 MG CAP PO SCH (20:34)
[2022-04-14] MEDS: ATORVASTATIN 40 MG TAB PO SCH (20:35)
[2022-04-14] MEDS: DULoxetine HCL 20 MG CAP PO SCH (20:36)
[2022-04-15] MEDS ORDERED: ALBUT/IPRATROP 3MG/0.5MG NEB 3 ML VIAL NEB ONE (03:49)
[2022-04-15] MEDS ORDERED: COUGH DROP (SUGAR FREE) LOZ 24 LOZ/1 BOX BUCCAL PRN (03:53)
[2022-04-15] MEDS: LEVOTHYROXINE SODIUM 88 MCG TABLET PO SCH (06:28)
[2022-04-15] MEDS: ALBUT/IPRATROP 3MG/0.5MG NEB 3 ML VIAL INH SCH ×2 (07:21→11:35)
[2022-04-15] MEDS: BENZONATATE 100 MG CAPSULE PO SCH (09:08)
[2022-04-15] MEDS: DOCUSATE SODIUM 100 MG CAP PO SCH (09:08)
[2022-04-15] MEDS: SACCHAROMYCES BOULARDII 250 MG CAP PO SCH (09:09)
[2022-04-15] MEDS: PANTOprazole 40 MG TAB PO SCH (09:09)
[2022-04-15] MEDS: guaiFENesin/DEXTROM SYRUP 100MG/10MG 5ML UDC PO SCH (09:09)
[2022-04-15] MEDS: NEPHROCAPS PO SCH (09:09)
[2022-04-15] MEDS: HEPARIN SOD 5,000 UNIT/0.5 ML VIAL SQ SCH (09:10)
[2022-04-15] MEDS: MENTHOL-ZINC OXIDE 360 APPLN/120 GM TUBE EXT SCH (09:12)
[2022-04-15] MEDS: INSULIN ASPART PER UNIT SC SCH (09:20)
[2022-04-15 10:22] LABS: BUN Creatinine Ratio 6.9 (10-20); Calcium 8.5 mg/dl (8.5-10.1); Est GFR (African American) 18.1 ml/min; Est GFR (Non-African American) 15.6 ml/min; Potassium 3.3 mmol/L (3.5-5.1)
[2022-04-15] MEDS ORDERED: POTASSIUM CHLORIDE CRTAB 20 MEQ TABCR PO STA (12:23)
--- NOTE | 2022-04-15 19:26 | Nephrology Progress Note ---
Date of Service April 15, 2022 Assessment & Plan (1) ESRD (end stage renal disease) on dialysis: Plan: Patient with ESRD on dialysis Thursday at [facility]. She missed outpatient dialysis on Wednesday 04/11 due to ill health. Main complaint now is shortness of breath. Chest x-ray showed pulmonary edema. Patient tolerated dialysis well 04/12 for 3 and half hours on a 3K bath with a net UF of 3 L. Had HD 04/14 for 3.5 hrs w/ target 3L off>>got 2.6L off, limited by BP noted to have owrsening hyponatremia today >> ? cause though suspect volume overload +/- lung dz w/ virus >will check bmp weekly at [facility] and monitor voluem status at HD in [facility] (2) RSV (acute bronchiolitis due to respiratory syncytial virus): Plan: Patient found to have RSV. Chest x-ray showing pulmonary edema but no evidence of pneumonia. Continue conservative management per primary team. We will attempt aggressive ultrafiltration with dialysis to ease her respiratory distress adn hypoxia. Admission and Anticipated Discharge Date Admission Date: April 11, 2022 Subjective seen on rounds today at about 1150; gearing up for d/c back to [facility]. feeling ok > no N, feels breathing and cough better though still on 02; no n/v; no confusion Review of Systems Review of Systems: All systems reviewed & are unremarkable except as noted in Subjective Physical Exam Constitutional: well developed, well nourished, + ill appearing, + frail appearing and cooperative; no acute distress and not in distress Eyes: EOM intact bilaterally ENMT: Ears: no external ear abnormality Nose: no external nose abnormality Mouth: + dry oral mucous membranes Neck: no nuchal rigidity Respiratory: normal respiratory effort Auscultation: + diminished lung sounds Cardiovascular: Rate/Rhythm: regular rate and regular rhythm Extremities: no edema Gastrointestinal (Abdomen): Inspection/Auscultation: normal bowel sounds Percussion/Palpation: abdomen soft; abdomen nontender Musculoskeletal: Extremities: strength 5/5 throughout (but generalized weakness) Skin: no rashes, warm and dry Results & Data ([facility]) Vital Signs (Past 12 Hours) Vital Signs Temp Pulse Pulse Pulse Pulse Resp BP 04/15/22 12:52 36.7 C 70 107 H 105 H 104 H 18 132/76 04/15/22 08:00 04/15/22 11:36 70 18 04/15/22 11:19 36.7 C 92 H 20 04/15/22 08:08 36.6 C 92 H 18 BP Pulse Ox O2 Del Method O2 Flow Rate 04/15/22 12:52 157/85 H 98 04/15/22 08:00 Nasal Cannula 2 04/15/22 11:36 98 Nasal Cannula 2 04/15/22 11:19 157/85 H 99 Nasal Cannula 2 04/15/22 08:08 136/85 1 L Nasal Cannula Laboratory Results 04/14/22 08:36 04/15/22 09:33
--- NOTE | 2022-05-01 10:39 | Discharge Summary ---
Date of Service April 15, 2022 Admission HPI Per Admitting Provider Saida Manriquez is a 72-year-old female with a past medical history of ESRD on dialysis M/W/F, CAD, ischemic cardiomyopathy, aortic stenosis, severe peripheral arterial disease, hypertension, diabetes with neuropathy, AUDI, and hypothyroidism. She is presenting today from [facility] where she resides. Patient recently had 4 days of deep cough, runny nose, watery eyes, and chills subsequently tested positive for RSV yesterday. She was scheduled to have a dialysis session today, however was not feeling up to it due to her illness, so it was missed. Patient then was apparently hypoxic on room air at [facility] g iven this as well as not being able to arrange for outpatient dialysis until Thursday, patient was referred to the ED for evaluation. For my evaluation, patient voices no complaints other than the URI symptoms stated above, which she says have been getting a little bit better. On presentation she is mildly tachycardic with a max HR of 106, otherwise vital signs within normal limits. Her oxygen has been > 92% on room air throughout my visit. BUN 39, creatinine 3.77, phosphorus 5.4, sodium 133, Hgb 10.9. Other lab abnormalities. CXR shows cardiomegaly and pulmonary vascular congestion, with hypoinflation with chronic interstitial coarsening. Principal Diagnosis Respiratory syncytial virus Hyponatremia Discharge Exam Constitutional WD/WN, vitals as above Respiratory normal respiratory effort; no respiratory distress Auscultation: + wheezes (mild expiratory); no diminished lung sounds, no crackles, no rales and no rhonchi Cardiovascular RRR, no murmur, no edema Psychiatric A+Ox3, euthymic affect Discharge Data Allergies Allergy/AdvReac Type Severity Reaction Status Date / Time cyclobenzaprine Allergy Unknown ON MED LIST Verified 04/11/22 15:16 [From Flexeril] Consultations 04/11/22 15:19 ED Decision to Admit Stat 04/11/22 17:40 Consult Nephrology Routine Hospital Course (1) RSV (acute bronchiolitis due to respiratory syncytial virus): Saida Manriquez is a 72 year old female admission to [facility] [address] from April 11 - 2021 due to upper respiratory symptoms. She was diagnosed with RSV and received supportive care alone. Wheezing on exam is normal for RSV and not indication for nebulizers or steroids and given no history of reactive airway disease and likely to make her diabetes worse steroids were not prescribed. She has improved since admission and undergoing dialysis. Recommend continued supportive care with incentive spirometer, guaifenesin, flutter valve as needed. She has had some improvement with duonebs but no definitive indication for this - consider prescribing if she is getting worse at [facility] along with a short course of steroids. She is hyponatremic on discharge with Na 126. This was discussed with nephrology and likely due to RSV. This will be followed as an outpatient with dialysis. She is asymptomatic from this. Please continue to wean oxygen to aim O2 sats > 90%. (2) ESRD (end stage renal disease) on dialysis: (3) Coronary artery disease: (4) PAD (peripheral artery disease): (5) Ischemic cardiomyopathy: (6) Aortic stenosis: (7) Diabetes: (8) Depression: (9) Hypothyroidism: Total Time Total Time Spent Total Time Spent (In Minutes): 35 Discharge Plan Discharge Items Patient Disposition: Transfer Half-Way Fac Reason For Visit: ESRD NEEDS DIALYSIS Discharge Diagnosis: Respiratory syncytial virus Hyponatremia Activity: Resume your previous activity Non-emergency contact: Primary Care Provider Call non-emergency contact if: you have any medication questions and your symptoms worsen Follow-up/Referrals: [facility] [Primary Care Provider] - Diet: Carb Consistent or DM2 and Dialysis Renal Addtl Attending Provider Instructions: Saida Manriquez is a 72 year old female admission to [facility] [address] from April 11 - 2021 due to upper respiratory symptoms. She was diagnosed with RSV and received supportive care alone. Wheezing on exam is normal for RSV and not indication for nebulizers or steroids and given no history of reactive airway disease and likely to make her diabetes worse steroids were not prescribed. She has improved since admission and undergoing dialysis. Recommend continued supportive care with incentive spirometer, guaifenesin, flutter valve as needed. She has had some improvement with duonebs but no definitive indication for this - consider prescribing if she is getting worse at [facility] along with a short course of steroids. She is hyponatremic on discharge with Na 126. This was discussed with nephrology and likely due to RSV. This will be followed as an outpatient with dialysis. She is asymptomatic from this. Please continue to wean oxygen to aim O2 sats > 90%. Pending Studies at Discharge: No Stand-Alone Forms: My [facility], Smoking Cessation Skilled Items Patient informed of condition?: Yes DNR: Yes Discharge Level of Care: Skilled Communicable Disease: Yes (RSV) Discharge Prognosis: Improving Lines: None Urinary Catheter: No Medications and DC Order Prescriptions: Continued atorvastatin 80 mg tablet 80 mg PO QPM acetaminophen [Tylenol] 325 mg Tablet 650 mg PO Q6 PRN (Reason: Fever Or Pain) Rx Instructions: GIVE FOR TEMP >100, PAIN 1-10 levothyroxine 88 mcg tablet 88 mcg PO DAILY@1230 pantoprazole 40 mg tablet,delayed release (DR/EC) 40 mg PO BID docusate sodium 100 mg Capsule 100 mg PO BID gabapentin 100 mg capsule 200 mg PO QPM B complex with C 20-folic acid 1 mg Capsule 1 cap PO DAILY Saccharomyces boulardii [Florastor] 250 mg Capsule 250 mg PO BID protein supplement Liquid 1 ea PO DAILY Rx Instructions: 30 ML tramadol 50 mg Tablet 25 mg PO BID PRN (Reason: moderate-severe pain) Qty: 10 0RF insulin lispro [Humalog U-100 Insulin] 100 unit/mL solution See Rx Instructions .ROUTE .COMPLEX Qty: 10 0RF Rx Instructions: INJECT PER SLIDING SCALE: 150-200=2 units, 200-250=4 units, 250- 300=8UNITS, 300-350=12UNITS, >350=16UNITS and RECHECK BSG IN 2 HR. benzonatate 100 mg Capsule 200 mg PO TID duloxetine 20 mg capsule,delayed release(DR/EC) 20 mg PO HS ipratropium-albuterol 0.5 mg-3 mg(2.5 mg base)/3 mL solution for nebulization 3 ml INHALATION QID dextromethorphan-guaifenesin 10-100 mg/5 mL Syrup 10 ml PO QID insulin glargine [Lantus U-100 Insulin] 100 unit/mL solution 15 unit SUBCUT HS Velphoro 500 mg tablet,chewable 500 mg PO DAILY Discontinued ceftriaxone 1 gram recon soln 1 g IM DAILY Rx Instructions: For 7 days. Mix with 2.1ml liodcaine 1% Discharge Orders: Discharge Order (Routine); Ordered 04/15/22 Ordered By: Lalit Roberson Admission Data Admit Date/Time: 04/11/22 15:20 Attending Provider: Lalit Roberson Admit Provider: Parish Garsia Primary Care Provider: Darshan Lewis Other Providers: Darshan Lewis ; Parish Garsia ; Gerson Paulson Other Interventions: Discharge Summary Assessment (RN) Last Done: 04/15/22 12:52 Coding Level of Care Code D/C DAY MANAGEMENT >30 MINS Diagnoses RSV (acute bronchiolitis due to respiratory syncytial virus) J21.0 ESRD (end stage renal disease) on dialysis N18.6; Z99.2 Coronary artery disease I25.10 PAD (peripheral artery disease) I73.9 Ischemic cardiomyopathy I25.5 Aortic stenosis I35.0 Diabetes E11.9 Depression F32.A Hypothyroidism E03.9
== END 2022-04-15 13:32 | DRG 202 ==
LOC: ED 12:19 → SUATTDRO 15:20 → 2W 15:20
DX: E11.51 Type 2 diabetes mellitus with diabetic peripheral angiopathy without gangrene; I12.0 Hypertensive chronic kidney disease with stage 5 chronic kidney disease or end stage renal disease; J96.11 Chronic respiratory failure with hypoxia; E11.40 Type 2 diabetes mellitus with diabetic neuropathy, unspecified; N18.6 End stage renal disease; I35.0 Nonrheumatic aortic (valve) stenosis; G47.33 Obstructive sleep apnea (adult) (pediatric); E11.22 Type 2 diabetes mellitus with diabetic chronic kidney disease; Z66 Do not resuscitate; Z88.8 Allergy status to other drugs, medicaments and biological substances; Z99.2 Dependence on renal dialysis; I25.10 Atherosclerotic heart disease of native coronary artery without angina pectoris; I25.5 Ischemic cardiomyopathy; Z79.4 Long term (current) use of insulin; J21.0 Acute bronchiolitis due to respiratory syncytial virus; E87.1 Hypo-osmolality and hyponatremia; E03.9 Hypothyroidism, unspecified; F32.A Depression, unspecified

== ENCOUNTER 2024-04-04 12:04 | Inpatient (IN) ==
--- NOTE | 2024-04-04 12:29 | Emergency Department Note ---
Impression & Plan Fever, Leukocytosis, Anemia, Elevated lactic acid level, Elevated troponin ED Provider Note NAME: SHANEL HARDY AGE: 74 SEX: F : 1950 ARRIVES VIA: Ambulance INFORMANT: Patient ED PROVIDER(S): Nigel Begum DO CHIEF COMPLAINT: fever and hypotension HPI: Patient is a 74-year-old female with a past medical history of septic shock, CKD, altered mental status, hypoxia, bacteremia, end-stage renal disease on dialysis Thursday, Thursday, and Thursday, ischemic cardiomyopathy who presents to the ER for low blood pressures at dialysis in combination with a fever of 100.7. Patient notes that she has had chills since Thursday. She notes she cannot control the shaking chills. She denies any headache or change in vision. She denies any chest pain or shortness of breath. No dysuria, urgency, or frequency and admits that she still makes urine. She has been receiving dialysis for the past 3 years and access in right chest has been present since then. ADDITIONAL HISTORY OBTAINED: Per HPI Chronic Medical/Social Conditions Affecting Care: Per HPI PAST MEDICAL HISTORY:See Below PAST SURGICAL HISTORY:See Below FAMILY HISTORY:See Below SOCIAL HISTORY:See Below HOME MEDICATIONS:See Below ALLERGIES:See Below VITALS:See Below PHYSICAL EXAMINATION: GENERAL: Sitting up in bed, alert, well appearing, well nourished, no distress, non-toxic EYE EXAM: normal conjunctiva. OROPHARYNX: mucous membranes are moist NECK: supple, no nuchal rigidity, no adenopathy, non-tender CHEST: Catheter in right chest wall LUNGS: Clear to auscultation. Normal chest wall mechanics HEART: no murmurs, S1 normal and S2 normal ABDOMEN: abdomen soft, non-tender, normo-active bowel sounds, no masses, no rebound or guarding. BACK: Back is symmetrical on inspection and there is no deformity, no midline tenderness, no CVA tenderness. SKIN: no rashes and no bruising UPPER EXTREMITIES: upper extremities are grossly normal. LOWER EXTREMITIES: No pitting edema. NEURO EXAM: Normal sensorium, cranial nerves II-XII grossly intact, normal speech, no gross weakness of arms, no gross weakness of legs. MEDICAL DECISION MAKING: Patient is a 74-year-old female who presents to the ER for the below stated complaint. IV was established and blood work was obtained. Labs show mild leukocytosis 11.5 thousand. Mild anemia 9.1 fairly consistent with previous. BMP with mild hyponatremia at 133. Creatinine elevated at 4 consistent with dialysis. Lactate was elevated as well. Troponin was elevated at 18. UA was unremarkable. Viral panel was negative. Patient was covered with IV antibiotics. She was given a small fluid bolus. With the episode of hypotension and having a fever at dialysis I did discuss the case with the hospitalist for further evaluation management treatment. Chest x-ray was unremarkable. Consults/Care Managements Discussions: Per [facility] Triage Nursing notes reviewed. Limited review of prior medical records performed Vital Signs: reviewed and remarkable for no significant abnormalities Differential diagnosis: Cellulitis, abscess, MRSA infection, DVT, necrotizing fasciitis, dermatitis, drug eruption, allergic reaction, as well as other pathologies. ER treatment provided: See below Diagnostics interpreted by me include EKG and cardiac monitoring as listed below: -Cardiac Monitoring: An order was placed for continuous cardiac monitoring. The monitor shows a rate of 101 with sinus rhythm. -ECG: Sinus tachycardia rate of 104 Left axis No PVCs Septal Q waves QTc 486 -Laboratory studies:Interpreted by me as stated above in MDM and shown below. Imaging studies: Xrays: As interpreted by me: Portable AP upright 1 view of the chest shows no focal M-Trate CTs show: none Procedures:none Critical Care: None Past Med/Surg History Problem List (Updated 04/04/24 @ 18:14 by Nigel Begum DO) Elevated troponin (Acute) Elevated lactic acid level (Acute) Anemia (Acute) Leukocytosis (Acute) Fever (Acute) Anemia of chronic disease History of severe sepsis Fever Septic shock Chronic kidney disease requiring chronic dialysis AMS (altered mental status) (Acute) Leukocytosis (Acute) Hypoxia (Acute) Admitted to intensive care unit Severe sepsis Acute osteomyelitis of right calcaneus Discitis of thoracic region Bacteremia Acute metabolic encephalopathy Abdominal pain Coagulopathy History of GI bleed Candidiasis of mouth and esophagus Hyperglycemia Hypotension Cellulitis (Acute) Diabetic foot ulcer (Acute) RSV (acute bronchiolitis due to respiratory syncytial virus) (Acute) Hypothyroidism Hypoxia (Acute) Encounter for pre-operative examination Diabetes Hgb A1C 7.3 on 05/20/22 ESRD (end stage renal disease) on dialysis (Acute) M,W,F at [facility]ath PAD (peripheral artery disease) Moderate per vascular records Aortic stenosis Moderate to severe per 08/2021 ECHO Ischemic cardiomyopathy EF 30-35% per 08/2021 ECHO Chronic respiratory failure with hypoxia Only uses supplemental oxygen when sick- no oxygen needed at this point Anemia in chronic renal disease Hypothyroidism Obstructive sleep apnea No device Obesity Diabetic peripheral neuropathy Bilateral hands and feet Hypertension Coronary artery disease Denies stents or bypass Per cardio records - likely had prior LAD infarct (pt unaware of when); no ASA due to prior GI bleed Depression Medical History Anemia in chronic renal disease Aortic stenosis Moderate to severe per 08/2021 ECHO Chronic respiratory failure with hypoxia Only uses supplemental oxygen when sick- no oxygen needed at this point Coronary artery disease Denies stents or bypass Per cardio records - likely had prior LAD infarct (pt unaware of when); no ASA due to prior GI bleed Depression Diabetes Hgb A1C 7.3 on 05/20/22 Diabetic peripheral neuropathy Bilateral hands and feet Diabetic ulcer of both feet 11/2021 Stable currently- had debridement 11/2021- wears Unna boots Encounter for removal of vascular catheter 08/2021 - Dr Inocencio Pablo (HD catheter) ESRD (end stage renal disease) on dialysis M,W,F at [facility] via permacath Generalized weakness History of CVA (cerebrovascular accident) Several strokes ("many years since last stroke") History of gastrointestinal bleeding 06/2021 No recent issues Hypertension Hypothyroidism Ischemic cardiomyopathy EF 30-35% per 08/2021 ECHO halfway resident [place] Obesity Obstructive sleep apnea No device PAD (peripheral artery disease) Moderate per vascular records Shingles back-left flank onset 06/26/22 Surgical History H/O foot surgery 08/2021 - right calcaneal resection 2nd to osteomyelitis - Dr Dick Naqvi History of open reduction and internal fixation (ORIF) procedure RT IM NAILING 08/06/22 AT [facility] [place] S/P arteriovenous (AV) graft placement 07/2022, [facility] Family History Other No pertinent family history Social History Smoking Status: Never smoker Hx Alcohol Use: No Hx Substance Use: No Preferred Language: Irish Communication Ability: Effective Supervisor Fleshing Required: No Beliefs That Will Affect Care: None Current Living Situation: [facility] Current Living Situation Comment: [facility] Other Information That Helps Us Care for You: No Feels Safe at Home: Yes Safety Concerns: Feels Safe At This Time Assistive Devices: Glasses, Slide Board and Wheelchair Allergies Allergies Allergy/AdvReac Type Severity Reaction Status Date / Time cyclobenzaprine Allergy Unknown Woozy Verified 04/04/24 14:54 [From Flexeril] Home Meds Home Medications Medication Instructions Recorded Confirmed acetaminophen 325 mg tablet 650 mg PO Q6 PRN Fever Or Pain 11/06/21 04/04/24 (Tylenol) atorvastatin 80 mg tablet 80 mg PO HS 11/06/21 04/04/24 gabapentin 100 mg capsule 100 mg PO TID 11/06/21 04/04/24 pantoprazole 40 mg tablet,delayed 40 mg PO BID 11/06/21 04/04/24 release insulin glargine 100 unit/mL 10 unit subcut HS 04/11/22 04/04/24 subcutaneous solution (Lantus U-100 Insulin) sucroferric oxyhydroxide 500 mg 500 mg PO TIDWMEAL 04/11/22 04/04/24 chewable tablet (Velphoro) bisacodyl 10 mg rectal suppository 10 mg KS DAILY PRN Constipation 08/27/22 04/04/24 (Dulcolax (bisacodyl)) cholecalciferol (vitamin D3) 125 125 mcg PO HS 08/27/22 04/04/24 mcg (5,000 unit) tablet (Vitamin D3) multivitamin 1 tab PO HS 08/27/22 04/04/24 polyethylene glycol 3350 17 17 g PO BID 08/27/22 04/04/24 gram/dose oral powder (Miralax) sennosides 8.6 mg-docusate sodium 1 tab-cap PO BID 08/27/22 04/04/24 50 mg tablet (Senokot-S) sodium phosphates 19 gram-7 118 ml KS UD PRN Constipation 08/27/22 04/04/24 gram/118 mL enema (Fleet Enema) calcium acetate(phosphat bind) 667 667 mg PO DAILY PRN Snacks 09/19/22 04/04/24 mg tablet calcium acetate(phosphat bind) 667 1,334 mg PO TIDWMEAL 04/04/24 04/04/24 mg capsule carboxymethylcellulose sodium 1 % 2 drp OPB BID 04/04/24 04/04/24 eye drops (Artificial Tears (carboxymethylcellulose)) diclofenac sodium 1 % topical gel 2 g topical QID b/l hand pain 04/04/24 04/04/24 fentanyl 50 mcg/hr transdermal 1 patch transdermal Q72H 04/04/24 04/04/24 patch levothyroxine 175 mcg tablet 175 mcg PO HS 04/04/24 04/04/24 midodrine 10 mg tablet 10 mg PO 3XWK 04/04/24 04/04/24 morphine concentrate 100 mg/5 mL 10 mg PO 3XWK 04/04/24 04/04/24 (20 mg/mL) oral solution morphine concentrate 100 mg/5 mL 10 mg PO Q4H PRN Pain 04/04/24 04/04/24 (20 mg/mL) oral solution ondansetron HCl 4 mg tablet 4 mg PO 3XWK 04/04/24 04/04/24 ondansetron HCl 4 mg tablet 4 mg PO Q6H PRN Nausea And Vomiting 04/04/24 04/04/24 protein supplement 1 ea PO UD 04/04/24 04/04/24 sacubitril 24 mg-valsartan 26 mg 1 tab PO HS 04/04/24 04/04/24 tablet (Entresto) sucroferric oxyhydroxide 500 mg 500 mg PO DAILY PRN W/Snacks 04/04/24 04/04/24 chewable tablet (Velphoro) torsemide 20 mg tablet 120 mg PO 2XWK 04/04/24 04/04/24 vitamin B complex 1 tab PO HS 04/04/24 04/04/24 Previous Rx's Medication Instructions Recorded insulin lispro 100 unit/mL See Rx Instructions .Route 11/13/21 subcutaneous solution (Humalog .COMPLEX #10 mL U-100 Insulin) Results & Data (ED) Vital Signs Vital Signs - 24 hr 04/04/24 12:14 04/04/24 12:17 04/04/24 12:30 Temperature 37.1 C Temperature Source Oral Pulse Rate 106 H 105 H Pulse Rate from SpO2 Sensor 105 H Respiratory Rate 18 20 Respiratory Effort / Characteristics Respiratory Depth Blood Pressure 105/46 L Blood Pressure Mean 65 Pulse Oximetry 95 95 93 Oxygen Delivery Method Room Air Room Air Sepsis Recent Fever Within 48 Hours Yes Sepsis New/Unexplained Change in Mental Status No Sepsis Action Taken by Nursing No Action Required 04/04/24 12:30 04/04/24 12:31 04/04/24 12:42 Temperature Temperature Source Pulse Rate 98 H 95 H Pulse Rate from SpO2 Sensor Respiratory Rate 18 Respiratory Effort / Characteristics Respiratory Depth Blood Pressure 99/72 L Blood Pressure Mean 84 Pulse Oximetry Oxygen Delivery Method Sepsis Recent Fever Within 48 Hours Sepsis New/Unexplained Change in Mental Status Sepsis Action Taken by Nursing 04/04/24 12:45 04/04/24 12:45 04/04/24 12:57 Temperature Temperature Source Pulse Rate 91 H Pulse Rate from SpO2 Sensor 91 H Respiratory Rate 16 Respiratory Effort / Characteristics Respiratory Depth Blood Pressure 99/57 L 99/57 L Blood Pressure Mean 61 61 Pulse Oximetry 93 Oxygen Delivery Method Sepsis Recent Fever Within 48 Hours Sepsis New/Unexplained Change in Mental Status Sepsis Action Taken by Nursing 04/04/24 13:00 04/04/24 13:03 04/04/24 13:30 Temperature Temperature Source Pulse Rate 87 Pulse Rate from SpO2 Sensor 86 Respiratory Rate 17 Respiratory Effort / Characteristics Respiratory Depth Blood Pressure 104/58 L 141/68 H Blood Pressure Mean 73 100 Pulse Oximetry 96 Oxygen Delivery Method Sepsis Recent Fever Within 48 Hours Sepsis New/Unexplained Change in Mental Status Sepsis Action Taken by Nursing 04/04/24 13:33 04/04/24 13:42 04/04/24 13:45 Temperature Temperature Source Pulse Rate 89 93 H Pulse Rate from SpO2 Sensor Respiratory Rate 18 18 Respiratory Effort / Characteristics Respiratory Depth Blood Pressure 136/87 Blood Pressure Mean 99 Pulse Oximetry Oxygen Delivery Method Sepsis Recent Fever Within 48 Hours Sepsis New/Unexplained Change in Mental Status Sepsis Action Taken by Nursing 04/04/24 13:48 04/04/24 13:57 04/04/24 14:01 Temperature Temperature Source Pulse Rate 90 86 Pulse Rate from SpO2 Sensor 90 86 Respiratory Rate 18 15 Respiratory Effort / Characteristics Respiratory Depth Blood Pressure 132/58 L Blood Pressure Mean 71 Pulse Oximetry 97 98 Oxygen Delivery Method Sepsis Recent Fever Within 48 Hours Sepsis New/Unexplained Change in Mental Status Sepsis Action Taken by Nursing 04/04/24 14:15 04/04/24 14:16 04/04/24 14:18 Temperature Temperature Source Pulse Rate 90 93 H Pulse Rate from SpO2 Sensor 90 94 H Respiratory Rate 15 17 Respiratory Effort / Characteristics Respiratory Depth Blood Pressure 130/106 H Blood Pressure Mean 114 Pulse Oximetry 93 94 Oxygen Delivery Method Sepsis Recent Fever Within 48 Hours Sepsis New/Unexplained Change in Mental Status Sepsis Action Taken by Nursing 04/04/24 14:30 04/04/24 14:48 04/04/24 14:54 Temperature 37.1 C Temperature Source Oral Pulse Rate 89 76 Pulse Rate from SpO2 Sensor Respiratory Rate 18 18 Respiratory Effort / Characteristics Respiratory Depth Blood Pressure Blood Pressure Mean Pulse Oximetry Oxygen Delivery Method Sepsis Recent Fever Within 48 Hours Sepsis New/Unexplained Change in Mental Status Sepsis Action Taken by Nursing 04/04/24 15:01 04/04/24 15:03 04/04/24 15:03 Temperature Temperature Source Pulse Rate Pulse Rate from SpO2 Sensor Respiratory Rate Respiratory Effort / Characteristics Non-Labored Spontaneous Respiratory Depth Normal Blood Pressure 96/52 L 96/52 L Blood Pressure Mean 67 67 Pulse Oximetry Oxygen Delivery Method Sepsis Recent Fever Within 48 Hours Sepsis New/Unexplained Change in Mental Status Sepsis Action Taken by Nursing 04/04/24 15:06 04/04/24 15:15 04/04/24 15:15 Temperature Temperature Source Pulse Rate 84 73 Pulse Rate from SpO2 Sensor 85 75 Respiratory Rate 17 18 Respiratory Effort / Characteristics Respiratory Depth Blood Pressure 82/45 L Blood Pressure Mean 67 Pulse Oximetry 93 98 Oxygen Delivery Method Sepsis Recent Fever Within 48 Hours Sepsis New/Unexplained Change in Mental Status Sepsis Action Taken by Nursing 04/04/24 15:15 04/04/24 15:30 04/04/24 15:30 Temperature Temperature Source Pulse Rate Pulse Rate from SpO2 Sensor Respiratory Rate Respiratory Effort / Characteristics Respiratory Depth Blood Pressure 82/45 L 88/45 L 88/45 L Blood Pressure Mean 67 65 65 Pulse Oximetry Oxygen Delivery Method Sepsis Recent Fever Within 48 Hours Sepsis New/Unexplained Change in Mental Status Sepsis Action Taken by Nursing 04/04/24 15:30 04/04/24 15:30 04/04/24 15:45 Temperature Temperature Source Pulse Rate 81 77 Pulse Rate from SpO2 Sensor 80 76 Respiratory Rate 16 14 Respiratory Effort / Characteristics Respiratory Depth Blood Pressure 88/45 L Blood Pressure Mean 65 Pulse Oximetry 90 93 Oxygen Delivery Method Sepsis Recent Fever Within 48 Hours Sepsis New/Unexplained Change in Mental Status Sepsis Action Taken by Nursing Laboratory Data 04/04/24 12:15 04/04/24 12:15 Lab Results 04/04/24 04/04/2404/04/24 Range/Units 12:15 12:21 12:40 WBC 11.59 H (4.8-10.8) K/ul RBC 2.80 L (4.20-5.40) M/uL Hgb 9.1 L (12.0-16.0) g/dl POC Hgb 9.9 L (12.0-16.0) g/dl Hct 27.8 L (37.0-47.0) % POC Hct 29 L (37-47) % MCV 99.3 (80.0-100.0) fL MCH 32.5 (25.0-34.0) pg MCHC 32.7 (32.0-36.0) g/dL RDW Std Deviation 52.2 H (36.4-46.3) fL RDW Coeff of [place] 14.4 (11.5-14.5) % Plt Count 158 (130-400) K/uL MPV 10.9 (9.4-12.4) fL Immature Gran % (Auto) 0.5 % Neut % (Auto) 75.5 % Lymph % (Auto) 16.6 % [place] % (Auto) 6.4 % Eos % (Auto) 0.7 % Baso % (Auto) 0.3 % Neut # (Auto) 8.76 H (1.40-6.50) K/uL Lymph # (Auto) 1.92 (1.20-3.40) K/uL [place] # (Auto) 0.74 H (0.11-0.59) K/uL Eos # (Auto) 0.08 (0.00-0.50) K/uL Baso # (Auto) 0.03 (0.00-0.20) K/uL Immature Gran # (Auto) 0.06 (0.01-0.20) K/uL POC Sodium 132 L (135-144) mmol/L Sodium 133 L (136-145) mmol/L POC Potassium 4.1 (3.3-5.0) mmol/L Potassium 4.0 (3.5-5.1) mmol/L POC Chloride 93 L (101-112) mmol/L Chloride 94 L (98-107) mmol/L Carbon Dioxide 30 (21-32) mmol/L POC Total CO2 27 (24-31) mmol/L Anion Gap 9 (3-11) POC Anion Gap 17.0 (16-25) mmol/L POC BUN 34 H (7-18) mg/dl BUN 32 H (6-23) mg/dl Creatinine 4.04 H (0.6-1.2) mg/dl POC Creatinine 4.6 H* (0.6-1.3) mg/dl Est Cr Clr Drug Dosing 14.2 ml/min eGFR 11.14 BUN/Creatinine Ratio 7.9 L (10-20) Glucose 196 H (70-99(Fasting)) mg/dl POC Glucose (other) 197 H (70-99) mg/dl Lactate 2.3 H* (0.4-2.0) mmol/L Calcium 8.0 L (8.6-10.3) mg/dl POC Ioniz Calcium Amy 0.99 L (1.12-1.32) mmol/l Magnesium 1.7 (1.7-2.4) mg/dl Total Bilirubin 0.6 (0.2-1.0) mg/dl Direct Bilirubin 0.1 (0-0.2) mg/dl AST 29 (13-39) U/L ALT 16 (7-52) U/L Alkaline Phosphatase 146 H (34-104) U/L Troponin I High Sens 17.9 H (0-14) pg/ml Total Protein 6.2 (6.0-8.3) gm/dl Albumin 3.2 L (3.4-5.0) gm/dl Procalcitonin 0.23 (0-0.5) ng/ml Urine Color Yellow Urine Appearance Clear (Clear) Urine pH 5.5 (4.5-7.5) Ur Specific [place] 1.018 (1.000-1.030) Urine Protein 3+ H (Negative) Urine Glucose (UA) Trace H (Negative) Urine Ketones Trace H (Negative) Urine Blood Negative (Negative) Urine Nitrite Negative (Negative) Urine Bilirubin Negative (Negative) Urine Urobilinogen Negative (Negative) Ur Leukocyte Esterase Trace H (Negative) Urine WBC (Auto) 0-5 (0-5) /hpf Urine RBC (Auto) 0-2 (0-2) /hpf U Hyaline Cast (Auto) 0-2 (0-2) /lpf U Epithel Cells (Auto) 6-10 H (0-2) /hpf Urine Bacteria (Auto) None Seen (None Seen) Urine Mucus Present A (None Prsent) Adenovirus (PCR) (NotDetected) B. pertussis DNA (PCR) (NotDetected) B.parapertussis DNA PCR (NotDetected) C. pneumoniae DNA (PCR) (NotDetected) Coronavirus OC43 (PCR) (NotDetected) Coronavirus HKU1 (PCR) (NotDetected) Coronavirus 229E (PCR) (NotDetected) SARS-CoV-2 (PCR) (NotDetected) Coronavirus NL63 (PCR) (NotDetected) Human Metapneumovir PCR (NotDetected) Influenza Type A (PCR) (NotDetected) Influenza Type B (PCR) (NotDetected) M. pneumoniae (PCR) (NotDetected) Parainfluenza 1 (PCR) (NotDetected) Parainfluenza 2 (PCR) (NotDetected) Parainfluenza 3 (PCR) (NotDetected) Parainfluenza 4 (PCR) (NotDetected) RSV (PCR) (NotDetected) Entero/Rhino (PCR) (NotDetected) 04/04/24 04/04/24 Range/Units 12:45 14:10 WBC (4.8-10.8) K/ul RBC (4.20-5.40) M/uL Hgb (12.0-16.0) g/dl POC Hgb (12.0-16.0) g/dl Hct (37.0-47.0) % POC Hct (37-47) % MCV (80.0-100.0) fL MCH (25.0-34.0) pg MCHC (32.0-36.0) g/dL RDW Std Deviation (36.4-46.3) fL RDW Coeff of Juno (11.5-14.5) % Plt Count (130-400) K/uL MPV (9.4-12.4) fL Immature Gran % (Auto) % Neut % (Auto) % Lymph % (Auto) % [place] % (Auto) % Eos % (Auto) % Baso % (Auto) % Neut # (Auto) (1.40-6.50) K/uL Lymph # (Auto) (1.20-3.40) K/uL [place] # (Auto) (0.11-0.59) K/uL Eos # (Auto) (0.00-0.50) K/uL Baso # (Auto) (0.00-0.20) K/uL Immature Gran # (Auto) (0.01-0.20) K/uL POC Sodium (135-144) mmol/L Sodium (136-145) mmol/L POC Potassium (3.3-5.0) mmol/L Potassium (3.5-5.1) mmol/L POC Chloride (101-112) mmol/L Chloride (98-107) mmol/L Carbon Dioxide (21-32) mmol/L POC Total CO2 (24-31) mmol/L Anion Gap (3-11) POC Anion Gap (16-25) mmol/L POC BUN (7-18) mg/dl BUN (6-23) mg/dl Creatinine (0.6-1.2) mg/dl POC Creatinine (0.6-1.3) mg/dl Est Cr Clr Drug Dosing ml/min eGFR BUN/Creatinine Ratio (10-20) Glucose (70-99(Fasting)) mg/dl POC Glucose (other) (70-99) mg/dl Lactate 2.2 H* (0.4-2.0) mmol/L Calcium (8.6-10.3) mg/dl POC Ioniz Calcium Amy (1.12-1.32) mmol/l Magnesium (1.7-2.4) mg/dl Total Bilirubin (0.2-1.0) mg/dl Direct Bilirubin (0-0.2) mg/dl AST (13-39) U/L ALT (7-52) U/L Alkaline Phosphatase (34-104) U/L Troponin I High Sens (0-14) pg/ml Total Protein (6.0-8.3) gm/dl Albumin (3.4-5.0) gm/dl Procalcitonin (0-0.5) ng/ml Urine Color Urine Appearance (Clear) Urine pH (4.5-7.5) Ur Specific [place] (1.000-1.030) Urine Protein (Negative) Urine Glucose (UA) (Negative) Urine Ketones (Negative) Urine Blood (Negative) Urine Nitrite (Negative) Urine Bilirubin (Negative) Urine Urobilinogen (Negative) Ur Leukocyte Esterase (Negative) Urine WBC (Auto) (0-5) /hpf Urine RBC (Auto) (0-2) /hpf U Hyaline Cast (Auto) (0-2) /lpf U Epithel Cells (Auto) (0-2) /hpf Urine Bacteria (Auto) (None Seen) Urine Mucus (None Prsent) Adenovirus (PCR) Not Detected (NotDetected) B. pertussis DNA (PCR) Not Detected (NotDetected) B.parapertussis DNA PCR Not Detected (NotDetected) C. pneumoniae DNA (PCR) Not Detected (NotDetected) Coronavirus OC43 (PCR) Not Detected (NotDetected) Coronavirus HKU1 (PCR) Not Detected (NotDetected) Coronavirus 229E (PCR) Not Detected (NotDetected) SARS-CoV-2 (PCR) Not Detected (NotDetected) Coronavirus NL63 (PCR) Not Detected (NotDetected) Human Metapneumovir PCR Not Detected (NotDetected) Influenza Type A (PCR) Not Detected (NotDetected) Influenza Type B (PCR) Not Detected (NotDetected) M. pneumoniae (PCR) Not Detected (NotDetected) Parainfluenza 1 (PCR) Not Detected (NotDetected) Parainfluenza 2 (PCR) Not Detected (NotDetected) Parainfluenza 3 (PCR) Not Detected (NotDetected) Parainfluenza 4 (PCR) Not Detected (NotDetected) RSV (PCR) Not Detected (NotDetected) Entero/Rhino (PCR) Not Detected (NotDetected) Administered Medications Calcium Acetate (Calcium Acetate 667 Mg Cap/Tab) 1,334 mg PO TIDM HUEY Stop: 05/04/24 16:59 Last Admin: 04/04/24 17:35 Dose: 1,334 mg Documented By: IRLANDA Vancomycin HCl 2,000 mg/ (Sodium Chloride) 540 mls @ 200 mls/hr IV NOW STA Stop: 04/04/24 18:31 Last Admin: 04/04/24 17:04 Dose: 200 mls/hr Documented By: LIZ Insulin Aspart (Insulin Aspart Per Unit Charge) 0 units SC ACHS HUEY Stop: 05/04/24 16:29 Last Admin: 04/04/24 17:03 Dose: 2 units Documented By: LIZ Co-signed By: GERA Discontinued Medications Sodium Chloride (Nss) 250 mls @ 999 mls/hr IV .Q16M ONE Stop: 04/04/24 12:40 Last Infusion: 04/04/24 13:45 Dose: Infused Documented By: Admin: 04/04/24 12:43 Dose: 999 mls/hr Documented By: RAINA Ceftriaxone Sodium (Rocephin) 2,000 mg in 50 mls @ 100 mls/hr IV NOW STA Stop: 04/04/24 14:25 Last Infusion: 04/04/24 14:48 Dose: Infused Documented By: Admin: 04/04/24 14:13 Dose: 100 mls/hr Documented By: RAINA Cefepime HCl (Maxipime 2000mg) 2,000 mg in 20 mls @ 5 mls/min IV NOW STA; Protocol Stop: 04/04/24 14:55 Last Admin: 04/04/24 15:06 Dose: 5 mls/min Documented By: MICHELLE Morphine Sulfate (Morphine Sulfate 4 Mg/Ml 1 Ml Carp\\Vial) 4 mg IV NOW STA Stop: 04/04/24 13:57 Last Admin: 04/04/24 14:13 Dose: 4 mg Documented By: RAINA Imaging Data Radiologist's Impression: Chest X-Ray 04/04/24 12:15 XR chest 1V portable CLINICAL HISTORY: Sepsis. COMPARISON STUDY: Chest radiograph August 05, 2022. FINDINGS: Dual lumen right internal jugular central venous catheter remains in place. There is no pneumothorax or pleural effusion. There is no evidence for pulmonary edema or pneumonia. Cardiomegaly is unchanged. Linear bilateral densities favor atelectasis or scarring. IMPRESSION: No acute cardiopulmonary findings. No significant change in appearance of the chest. ACT 112: Negative or not required by law. Electronically signed by: Abram Pinon M.D. 04/04/2024 12:45 PM Discharge Plan Visit Data Chief Complaint: Fever Stated Complaint: FEVER ED Provider: Nigel Begum Discharge Problem: Fever, Leukocytosis, Anemia, Elevated lactic acid level, Elevated troponin Patient Disposition: Admitted As Inpatient Discharge Instructions Interventions: ED Discharge Assessment Last Done: 04/04/24 15:55 Discharge Problem: Fever Qualifiers: Fever type: unspecified Qualified Code(s): R50.9 - Fever, unspecified Leukocytosis Qualifiers: Leukocytosis type: unspecified Qualified Code(s): D72.829 - Elevated white blood cell count, unspecified Anemia Qualifiers: Anemia type: unspecified type Qualified Code(s): D64.9 - Anemia, unspecified
[2024-04-04 12:36] LABS: Basophils # (auto) 0.03 K/uL (0.00-0.20); Basophils % (auto) 0.3 %; Eosinophils # (auto) 0.08 K/uL (0.00-0.50); Eosinophils % (auto) 0.7 %; Hematocrit (blood only) 27.8 % (37.0-47.0); Hemoglobin 9.1 g/dl (12.0-16.0); Immature Granulocytes # (auto) 0.06 K/uL (0.01-0.20); Immature Granulocytes % (auto) 0.5 %; Lymphocytes # (auto) 1.92 K/uL (1.20-3.40); Lymphocytes % (auto) 16.6 %; Mean Corpuscular Hemoglobin 32.5 pg (25.0-34.0); Mean Corpuscular Hgb Conc 32.7 g/dL (32.0-36.0); Mean Corpuscular Volume 99.3 fL (80.0-100.0); Mean Platelet Volume 10.9 fL (9.4-12.4); Monocytes # (auto) 0.74 K/uL (0.11-0.59); Monocytes % (auto) 6.4 %; Neutrophils # (auto) 8.76 K/uL (1.40-6.50); Neutrophils % (auto) 75.5 %; Platelet Count 158 K/uL (130-400); RDW Coefficient of Variation 14.4 % (11.5-14.5); RDW Standard Deviation 52.2 fL (36.4-46.3); White Blood Count 11.59 K/ul (4.8-10.8)
[2024-04-04 12:39] LABS: iSTAT Creatinine 4.6 mg/dl (0.6-1.3); iSTAT Hemoglobin 9.9 g/dl (12.0-16.0); iSTAT Ionized Calcium 0.99 mmol/l (1.12-1.32); iSTAT Potassium 4.1 mmol/L (3.3-5.0)
[2024-04-04] MEDS: SODIUM CHLORIDE 0.9% 250 ML IV ONE (12:43)
--- NOTE | 2024-04-04 12:47 | XRay Report ---
XR chest 1V portable CLINICAL HISTORY: Sepsis. COMPARISON STUDY: Chest radiograph August 05, 2022. FINDINGS: Dual lumen right internal jugular central venous catheter remains in place. There is no pne umothorax or pleural effusion. There is no evidence for pulmonary edema or pneumonia. Cardiomegaly is unchanged. Linear bilateral densities favor atelectasis or scarring. IMPRESSION: No acute cardiopulmonary findings. No significant change in appearance of the chest. ACT 112: Negative or not required by law. Electronically signed by: Abram Pinon M.D. 04/04/2024 12:45 PM
[2024-04-04 12:56] LABS: Albumin Level 3.2 gm/dl (3.4-5.0); BUN Creatinine Ratio 7.9 (10-20); Bilirubin Direct 0.1 mg/dl (0-0.2); Bilirubin,Total 0.6 mg/dl (0.2-1.0); Creatinine Clr Calc Pharmacy 14.2 ml/min; Magnesium 1.7 mg/dl (1.7-2.4); Total Protein 6.2 gm/dl (6.0-8.3)
[2024-04-04 13:02] LABS: Troponin I High Sensitivity 17.9 pg/ml (0-14)
[2024-04-04 13:10] LABS: Appearance Urine Clear (Clear); Bacteria Urine Automated None Seen (None Seen); Bilirubin Urine Negative (Negative); Blood Urine Negative (Negative); Cast Urine Automated 0-2 /lpf (0-2); Color Urine Yellow; Glucose Urine UA Trace (Negative); Ketones Urine Trace (Negative); Leukocyte Esterase Urine Trace (Negative); Mucus Urine Present (None Prsent); Nitrite Urine Negative (Negative); Protein Urine 3+ (Negative); RBC Urine Automated 0-2 /hpf (0-2); Specific Gravity Urine 1.018 (1.000-1.030); Urobilinogen Urine Negative (Negative); WBC Urine Automated 0-5 /hpf (0-5); pH Urine 5.5 (4.5-7.5)
[2024-04-04 13:47] LABS: Adenovirus PCR Not Detected (NotDetected); Bordetella parapertussis PCR Not Detected (NotDetected); Bordetella pertussis PCR Not Detected (NotDetected); Chlamydia pneumoniae PCR Not Detected (NotDetected); Coronavirus 229E PCR Not Detected (NotDetected); Coronavirus CoV-2 (COVID19)PCR Not Detected (NotDetected); Coronavirus HKU1 PCR Not Detected (NotDetected); Coronavirus NL63 PCR Not Detected (NotDetected); Coronavirus OC43PCR Not Detected (NotDetected); Human Metapneumovirus PCR Not Detected (NotDetected); Influenza A PCR Not Detected (NotDetected); Influenza B PCR Not Detected (NotDetected); Mycoplasma pneumoniae PCR Not Detected (NotDetected); Parainfluenza Virus 1 PCR Not Detected (NotDetected); Parainfluenza Virus 2 PCR Not Detected (NotDetected); Parainfluenza Virus 3 PCR Not Detected (NotDetected); Parainfluenza Virus 4 PCR Not Detected (NotDetected); Respiratory Syncytial VirusPCR Not Detected (NotDetected); Rhinovirus/Enterovirus PCR Not Detected (NotDetected)
--- NOTE | 2024-04-04 14:08 | Electrocardiogram Report ---
Test Reason : Blood Pressure : */* mmHG Vent. Rate : 104 BPM Atrial Rate : 104 BPM P-R Int : 174 ms QRS Dur : 86 ms QT Int : 370 ms P-R-T Axes : 51 -37 103 degrees QTcB Int : 486 ms Sinus tachycardia Left axis deviation Inferior infarct , age undetermined Anterior infarct (cited on or before 04-Aug-2021) Abnormal ECG When compared with ECG of 12-Jun-2022 13:49, Inferior infarct is now Present Confirmed by Bo Carmichael ([id number]) on 04/04/2024 2:08:16 PM Referred By: Confirmed By: Bo Carmichael
--- NOTE | 2024-04-04 14:10 | History & Physical Report ---
Date of Service April 04, 2024 Assessment & Plan (1) Fever: Plan: Intermittent chills and body-aches that began on Sunday 04/01 Patient sent in after becoming hypotensive/febrile while receiving dialysis on 04/04 Leukocytosis at 11.59 with neutrophil predominance; febrile at 100.5 F prior to arrival Unclear source on admission BioFire negative UA negative for infection CXR without acute findings On clinical exam, patient denies respiratory symptoms, abdominal pain, sinus pressure, rashes, tick bites, or ear/throat pain ? Right IJ tunneled dialysis catheter as potential source of infection PCT WNL Lactate 2.3--> 2.2 Blood cultures drawn in the ED Given her history of severe sepsis/bacteremia will cover with broad-spectrum antibiotics for now IV Cefepime q8h IV Vancomycin (dose frequency based on levels in setting of dialysis) Acetaminophen as needed for pain/fever (2) ESRD (end stage renal disease) on dialysis: Plan: ESRD on HD M//F Last dialysis session was on Wednesday 04/04 (patient reportedly had 1.5L taken off prior to her episode of hypotension/fever) Nephrology consult appreciated Plan is to repeat dialysis on morning of 04/05 to pull off additional fluid (3) Diabetes: Plan: Last A1c at 7.0% on 03/28/2024 Patient is normally on Lantus 10u Hs Lantus 5 u BID while inpatient SSI; with target BSG range 110-140mg/dL, CF 45, carb ratio 15 T2DM diet BSG ACHS Adjust regimen as needed (4) Anemia of chronic disease: Plan: Hgb 9.1 on arrival No signs of active bleeding on clinical exam Continue to monitor Hgb (5) Hypotension: Plan: Patient was reportedly hypotensive during dialysis with SBP in the 90-100 range 99/57 in the ED Hold Entresto and torsemide for now (6) History of severe sepsis: Plan: Requiring ICU admission in 2021; secondary to diabetic foot wound/osteomyelitis MRSA infection 11/10/2021 (7) Aortic stenosis: (8) Coronary artery disease: Plan Disposition: Admit to PCU telemetry DNR/DNI Dialysis renal, T2DM diet VTE PPx: Heparin 5000u SQ q12h History of Present Illness Chief Complaint: Fever Primary Care Provider: Florencio Osborn III, MD Cintron is a 74-year-old female with PMH of ESRD on HD (M/W/F), severe sepsis, bacteremia, GI bleed, hypothyroidism, aortic stenosis, PAD, AUDI, depression, CAD, and HTN. She presented from [facility] on 04/04 after patient became hypotensive and febrile during her dialysis session today. Patient reports she initially developed a fever/chills on Sunday 04/01, but then she felt better over the weekend. She has been taking Tylenol as send care of the weekend. Patient then developed chills/rigors/hypotension/fever during her dialysis session today, and she was given p.o. Tylenol and midodrine by staff prior to coming in. She believes she took some of her regular morning medicine today, but is unsure if she took all of them. She denies any sick contacts, but does report she has been around some sick people at [facility]. She denies cough/SOB/respiratory symptoms. She does have a history of UTIs, but reports she can usually tell when she has them and denies any burning with urination or lower back pain. She does have a history of right arm cellulitis a couple months ago, but believes this is improved. Patient has a line in her right chest wall for dialysis, but reports no erythema, drainage, or signs of infection. She denies smoking, tobacco use, recent alcohol use. Patient's vitals are stable at time of admission. ED course: Rocephin 2000 mg IV Morphine sulfate 4 mg IV Sodium chloride 250 mL IV ROS: Patient endorses fever, chills, body aches, and intermittent numbness/tingling in the arms or legs. Patient denies sweating, headache, photophobia, pain in the ears, sore throat, rashes, tick bites, chest pain, SOB, chest palpitations, cough, abdominal pain, N/V/D, new lower back pain, burning with urination, or blood in the urine/stool. Spoke on the phone with patient's sister (Romnia) and provided update regarding labs/imaging/admission status. Allergies Allergy/AdvReac Type Severity Reaction Status Date / Time cyclobenzaprine Allergy Unknown Woozy Verified 04/04/24 14:54 [From Flexeril] Home Medications Medication Instructions Recorded Confirmed Type acetaminophen 325 mg tablet 650 mg PO Q6 PRN Fever Or Pain 11/06/21 04/04/24 History (Tylenol) atorvastatin 80 mg tablet 80 mg PO HS 11/06/21 04/04/24 History gabapentin 100 mg capsule 100 mg PO TID 11/06/21 04/04/24 History pantoprazole 40 mg tablet,delayed 40 mg PO BID 11/06/21 04/04/24 History release insulin lispro 100 unit/mL See Rx Instructions .Route 11/13/21 04/04/24 Rx subcutaneous solution (Humalog .COMPLEX #10 mL U-100 Insulin) insulin glargine 100 unit/mL 10 unit subcut HS 04/11/22 04/04/24 History subcutaneous solution (Lantus U-100 Insulin) sucroferric oxyhydroxide 500 mg 500 mg PO TIDWMEAL 04/11/22 04/04/24 History chewable tablet (Velphoro) bisacodyl 10 mg rectal suppository 10 mg TX DAILY PRN Constipation 08/27/22 04/04/24 History (Dulcolax (bisacodyl)) cholecalciferol (vitamin D3) 125 125 mcg PO HS 08/27/22 04/04/24 History mcg (5,000 unit) tablet (Vitamin D3) multivitamin 1 tab PO HS 08/27/22 04/04/24 History polyethylene glycol 3350 17 17 g PO BID 08/27/22 04/04/24 History gram/dose oral powder (Miralax) sennosides 8.6 mg-docusate sodium 1 tab-cap PO BID 08/27/22 04/04/24 History 50 mg tablet (Senokot-S) sodium phosphates 19 gram-7 118 ml TX UD PRN Constipation 08/27/22 04/04/24 History gram/118 mL enema (Fleet Enema) calcium acetate(phosphat bind) 667 667 mg PO DAILY PRN Snacks 09/19/22 04/04/24 History mg tablet calcium acetate(phosphat bind) 667 1,334 mg PO TIDWMEAL 04/04/24 04/04/24 History mg capsule carboxymethylcellulose sodium 1 % 2 drp OPB BID 04/04/24 04/04/24 History eye drops (Artificial Tears (carboxymethylcellulose)) diclofenac sodium 1 % topical gel 2 g topical QID b/l hand pain 04/04/24 04/04/24 History fentanyl 50 mcg/hr transdermal 1 patch transdermal Q72H 04/04/24 04/04/24 History patch levothyroxine 175 mcg tablet 175 mcg PO HS 04/04/24 04/04/24 History midodrine 10 mg tablet 10 mg PO 3XWK 04/04/24 04/04/24 History morphine concentrate 100 mg/5 mL 10 mg PO 3XWK 04/04/24 04/04/24 History (20 mg/mL) oral solution morphine concentrate 100 mg/5 mL 10 mg PO Q4H PRN Pain 04/04/24 04/04/24 History (20 mg/mL) oral solution ondansetron HCl 4 mg tablet 4 mg PO 3XWK 04/04/24 04/04/24 History ondansetron HCl 4 mg tablet 4 mg PO Q6H PRN Nausea And Vomiting 04/04/24 04/04/24 History protein supplement 1 ea PO UD 04/04/24 04/04/24 History sacubitril 24 mg-valsartan 26 mg 1 tab PO HS 04/04/24 04/04/24 History tablet (Entresto) sucroferric oxyhydroxide 500 mg 500 mg PO DAILY PRN W/Snacks 04/04/24 04/04/24 History chewable tablet (Velphoro) torsemide 20 mg tablet 120 mg PO 2XWK 04/04/24 04/04/24 History vitamin B complex 1 tab PO HS 04/04/24 04/04/24 History Past Med/Surg History Problem List Elevated troponin (Acute) Elevated lactic acid level (Acute) Anemia (Acute) Leukocytosis (Acute) Fever (Acute) Anemia of chronic disease History of severe sepsis Fever Septic shock Chronic kidney disease requiring chronic dialysis AMS (altered mental status) (Acute) Leukocytosis (Acute) Hypoxia (Acute) Admitted to intensive care unit Severe sepsis Acute osteomyelitis of right calcaneus Discitis of thoracic region Bacteremia Acute metabolic encephalopathy Abdominal pain Coagulopathy History of GI bleed Candidiasis of mouth and esophagus Hyperglycemia Hypotension Cellulitis (Acute) Diabetic foot ulcer (Acute) RSV (acute bronchiolitis due to respiratory syncytial virus) (Acute) Hypothyroidism Hypoxia (Acute) Encounter for pre-operative examination Diabetes Hgb A1C 7.3 on 05/20/22 ESRD (end stage renal disease) on dialysis (Acute) M[facility]W,F [facility] PAD (peripheral artery disease) Moderate per vascular records Aortic stenosis Moderate to severe per 08/2021 ECHO Ischemic cardiomyopathy EF 30-35% per 08/2021 ECHO Chronic respiratory failure with hypoxia Only uses supplemental oxygen when sick- no oxygen needed at this point Anemia in chronic renal disease Hypothyroidism Obstructive sleep apnea No device Obesity Diabetic peripheral neuropathy Bilateral hands and feet Hypertension Coronary artery disease Denies stents or bypass Per cardio records - likely had prior LAD infarct (pt unaware of when); no ASA due to prior GI bleed Depression Medical History Generalized weakness Shingles back-left flank onset 06/26/22 Diabetic ulcer of both feet 11/2021 Stable currently- had debridement 11/2021- wears [employer] boots care home resident [facility] Encounter for removal of vascular catheter 08/2021 - Dr Inocencio Pablo (HD catheter) History of gastrointestinal bleeding 06/2021 No recent issues History of CVA (cerebrovascular accident) Several strokes ("many years since last stroke") Surgical History S/P arteriovenous (AV) graft placement 07/2022, [facility] History of open reduction and internal fixation (ORIF) procedure RT IM NAILING 08/06/22 AT [facility] H/O foot surgery 08/2021 - right calcaneal resection 2nd to osteomyelitis - Dr Dick Naqvi Family History Other No pertinent family history Social History Smoking Status: Never smoker Hx Alcohol Use: No Hx Substance Use: No Preferred Language: Irish Communication Ability: Effective [employer] Supervisor Required: No Beliefs That Will Affect Care: None Current Living Situation: Retirement Current Living Situation Comment: [facility] Other Information That Helps Us Care for You: No Feels Safe at Home: Yes Safety Concerns: Feels Safe At This Time Assistive Devices: Wheelchair Review of Systems Review of Systems: See HPI above Physical Exam Physical Exam: General: Mild acute distress secondary to rigors; anxious; lethargic; non-toxic appearing; cooperative; SpO2 94% on RA HEENT: normocephalic, atraumatic; no scleral icterus; PERRLA; vision and hearing grossly intact; negative frontal sinus pressure; maxillary sinuses are mildly TTP; TMs are pearly cook bilaterally without signs of infection Neck: supple; no lymphadenopathy; trachea midline Skin: warm, dry without signs of tenting; no cyanosis; no rashes, bruising, lesions, or erythema appreciated on initial skin exam CV: chest wall NTP; IJ TDC on right chest wall without signs of erythema/drainag e; catheter is nontender to palpation; RR, tachycardic around 110-130 bpm; S1/S2 normal; no murmurs/rubs/gallops; pulses intact and symmetric at radial, DP, and PT Lungs: no acute respiratory distress; symmetrical chest wall expansion; clear breath sounds across all lung francois w/o adventitious sounds; no wheezing ABD: Soft, NTP in all 4 quadrants; negative suprapubic tenderness; BS present; no rebound/guarding; no distention MSK: no tics or fasciculations; +1 pitting edema noted in the LEs b/l, nonerythematous; s/p left great toe amputation Neuro: A&Ox3; normal mood and affect; fluent speech; no focal deficits; patient reports that sensation is intact and symmetric in the lower extremities bilaterally assessed via light touch Results & Data Results & Data Vital Signs (Past 12 Hours) Vital Signs Temp Pulse Resp BP Pulse Ox O2 Del Method 04/04/24 13:48 90 18 97 04/04/24 13:45 136/87 04/04/24 13:42 93 H 18 04/04/24 13:33 89 18 04/04/24 13:30 141/68 H 04/04/24 13:03 87 17 96 04/04/24 13:00 104/58 L 04/04/24 12:57 91 H 16 93 04/04/24 12:45 99/57 L 04/04/24 12:45 99/57 L 04/04/24 12:42 95 H 18 04/04/24 12:31 98 H 04/04/24 12:30 99/72 L 04/04/24 12:30 105 H 20 93 04/04/24 12:17 95 Room Air 04/04/24 12:14 37.1 C 106 H 18 105/46 L 95 Room Air Laboratory Results Abnormal lab results 04/04/24 04/04/24 04/04/24 Range/Units 12:15 12:21 12:40 WBC 11.59 H (4.8-10.8) K/ul RBC 2.80 L (4.20-5.40) M/uL Hgb 9.1 L (12.0-16.0) g/dl POC Hgb 9.9 L (12.0-16.0) g/dl Hct 27.8 L (37.0-47.0) % POC Hct 29 L (37-47) % RDW Std Deviation 52.2 H (36.4-46.3) fL Neut # (Auto) 8.76 H (1.40-6.50) K/uL [place] # (Auto) 0.74 H (0.11-0.59) K/uL POC Sodium 132 L (135-144) mmol/L Sodium 133 L (136-145) mmol/L POC Chloride 93 L (101-112) mmol/L Chloride 94 L (98-107) mmol/L POC BUN 34 H (7-18) mg/dl BUN 32 H (6-23) mg/dl Creatinine 4.04 H (0.6-1.2) mg/dl POC Creatinine 4.6 H* (0.6-1.3) mg/dl BUN/Creatinine Ratio 7.9 L (10-20) Glucose 196 H (70-99(Fasting)) mg/dl POC Glucose (other) 197 H (70-99) mg/dl Lactate 2.3 H* (0.4-2.0) mmol/L Calcium 8.0 L (8.6-10.3) mg/dl POC Ioniz Calcium Amy 0.99 L (1.12-1.32) mmol/l Alkaline Phosphatase 146 H (34-104) U/L Troponin I High Sens 17.9 H (0-14) pg/ml Albumin 3.2 L (3.4-5.0) gm/dl Urine Protein 3+ H (Negative) Urine Glucose (UA) Trace H (Negative) Urine Ketones Trace H (Negative) Ur Leukocyte Esterase Trace H (Negative) U Epithel Cells (Auto) 6-10 H (0-2) /hpf Urine Mucus Present A (None Prsent) Diagnostic Findings Chest X-Ray 04/04/24 12:15 XR chest 1V portable CLINICAL HISTORY: Sepsis. COMPARISON STUDY: Chest radiograph August 05, 2022. FINDINGS: Dual lumen right internal jugular central venous catheter remains in place. There is no pneumothorax or pleural effusion. There is no evidence for pulmonary edema or pneumonia. Cardiomegaly is unchanged. Linear bilateral densities favor atelectasis or scarring. IMPRESSION: No acute cardiopulmonary findings. No significant change in a ppearance of the chest. ACT 112: Negative or not required by law. Electronically signed by: Abram Pinon M.D. 04/04/2024 12:45 PM ECG Additional Comments: ECG revealed sinus tachycardia at 104 bpm; QTc 486 Code Status & VTE Plan Code Status DNR/DNI (confirmed with patient at bedside; reconfirmed with patient's POLST form signed on 08/13/2022) VTE Prophylaxis Plan VTE Prophylaxis will be ordered: Yes Supervising Physician Co-Signing Physician Notes I personally saw and examined the patient. I independently reviewed the labs, EKG, imaging, problem list, medication list, past medical history and family history. I verified all rausch points and agree with Dallin Velazquez PA-C with the following exceptions and/or additions: 74 year old female with ESRD on dialysis presents to the ER with rigors ongoing since Thursday O/E Ill appearing, HS RRR, no murmurs, Chest CTAB, Abdo SNT, no pedal edema A/P Fever/rigors - with history fo staph aureus bacteremia and immunosuppressed with ESRD on dialysis and line in place. Recommend empiric antibiotics with vancomycin + cefepime pending blood culture. Consider stopping if blood culture subsequently negative Hypotension - hold Entresto, consider midodrine HUEY not just with dialysis is remains low PG Care Time/CCT Total # of Minutes Spent Total Time Spent with Patient: Total time spent is greater than 50% in coordination of care (as documented) at patient's floor/unit and/or counseling patient: Coding [place] [address] INT INP/OBS CARE 3/75MIN Patient Type Established Medical Decision Making High Complexity Diagnoses Fever R50.9 ESRD (end stage renal disease) on dialysis N18.6; Z99.2 Diabetes E11.9 Anemia of chronic disease D63.8 Hypotension I95.9 History of severe sepsis Z86.19 Aortic stenosis I35.0 Coronary artery disease I25.10
[2024-04-04] MEDS: MoRPHine SULFATE 4 MG/ML 1 ML CARP\\VIAL IV STA (14:13)
[2024-04-04] MEDS: cefTRIAXone SODIUM 2,000 MG/50 ML BAG IV STA (14:13)
[2024-04-04] MEDS: CEFEPIME 2000MG 2,000 MG/20 ML SYR IV STA (15:06)
[2024-04-04] MEDS ORDERED: VANCOMYCIN CONSULT ACTIVE PRN ×3 (15:43→16:15)
[2024-04-04] MEDS ORDERED: DEXTROSE 50% 50 ML SYRINGE IV PRN (16:15)
[2024-04-04] MEDS ORDERED: NON-FORMULARY MEDICATION (Sucroferric Oxyhydroxide [Velphoro] 500 mg tablet,chewable) PO PRN (16:15)
[2024-04-04] MEDS ORDERED: CARBOHYDRATES FOR HYPOGLYCEMIA PO PRN (16:15)
[2024-04-04] MEDS ORDERED: GLUCOSE 10 TAB/TUBE PO PRN (16:15)
[2024-04-04] MEDS ORDERED: GLUCAGON FOR INJ 1 MG VIAL SQ PRN (16:15)
[2024-04-04] MEDS ORDERED: GLUCOSE 40% GEL 15 GM TUBE PO PRN (16:15)
[2024-04-04] MEDS ORDERED: SOD PHOSPHATE/SOD BIPHOSPHATE ENEMA 132 ML BTL PR PRN (16:15)
[2024-04-04] MEDS ORDERED: bisacodyL 10 MG SUPP PR PRN (16:15)
[2024-04-04] MEDS: INSULIN ASPART PER UNIT CHARGE SC SCH (17:03)
[2024-04-04] MEDS: VANCOMYCIN HCL 2,000 MG in SODIUM CHLORIDE 0.9% 500 ML IV STA (17:04)
[2024-04-04] MEDS: CALCIUM ACETATE 667 MG CAP/TAB PO SCH (17:35)
[2024-04-04] MEDS: fentaNYL 50 MCG/HR TDSY TD SCH (20:21)
[2024-04-04] MEDS: PANTOprazole 40 MG TAB PO SCH (20:31)
[2024-04-04] MEDS: GABAPENTIN 100 MG CAP PO SCH (20:31)
[2024-04-04] MEDS: LEVOTHYROXINE SODIUM 175 MCG TABLET PO SCH (20:31)
[2024-04-04] MEDS: DOCUSATE SODIUM/SENNA 50/8.6MG TAB PO SCH (20:31)
[2024-04-04] MEDS: ATORVASTATIN 40 MG TAB PO SCH (20:31)
[2024-04-04] MEDS: ARTIFICIAL TEARS OP SCH (20:32)
[2024-04-04] MEDS: POLYETHYLENE (MIRALAX) 17 GM PACK PO SCH (20:32)
[2024-04-04] MEDS: LANTUS PER UNIT CHARGE SQ SCH (20:33)
[2024-04-04] MEDS: HEPARIN SOD 5,000 UNIT/0.5 ML VIAL SQ SCH (20:33)
[2024-04-05] MEDS: CHECK fentaNYL PATCH PLACEMENT SCH (00:33)
[2024-04-05] MEDS ORDERED: VANCOMYCIN HCL 1,500 MG in SODIUM CHLORIDE 0.9% 500 ML IV SCH ×2 (03:00→05:00)
[2024-04-05 06:17] LABS: Basophils # (auto) 0.04 K/uL (0.00-0.20); Basophils % (auto) 0.5 %; Eosinophils # (auto) 0.07 K/uL (0.00-0.50); Eosinophils % (auto) 0.8 %; Hemoglobin 9.3 g/dl (12.0-16.0); Immature Granulocytes # (auto) 0.06 K/uL (0.01-0.20); Immature Granulocytes % (auto) 0.7 %; Lymphocytes # (auto) 1.56 K/uL (1.20-3.40); Lymphocytes % (auto) 17.8 %; Mean Corpuscular Hemoglobin 32.2 pg (25.0-34.0); Mean Corpuscular Hgb Conc 32.1 g/dL (32.0-36.0); Mean Corpuscular Volume 100.3 fL (80.0-100.0); Mean Platelet Volume 10.9 fL (9.4-12.4); Monocytes % (auto) 6.8 %; Neutrophils # (auto) 6.43 K/uL (1.40-6.50); Neutrophils % (auto) 73.4 %; Platelet Count 136 K/uL (130-400); RDW Coefficient of Variation 14.5 % (11.5-14.5); Red Blood Count 2.89 M/uL (4.20-5.40); White Blood Count 8.76 K/ul (4.8-10.8)
[2024-04-05 06:38] LABS: BUN Creatinine Ratio 8.2 (10-20); Calcium 8.1 mg/dl (8.6-10.3); Creatinine Clr Calc Pharmacy 10.2 ml/min; Potassium 4.7 mmol/L (3.5-5.1)
--- NOTE | 2024-04-05 07:48 | Nephrology Consultation ---
Date of Consultation April 05, 2024 Assessment & Plan (1) ESRD (end stage renal disease) on dialysis: ESRD on HD at [facility] via [facility]. marked wt gain past several months but not overtly suffering from volume overload. had 1.5 L off yesterday but needed >4 L off per TW which has been repeatedly increased. -plan 2 hr HD today w/ up to 2.5L UF as tolerated adn customary OP heparin 1600/400 hourly -continue binders -started 1.5L FR Care coordinated w/ hospitalist PA regarding dialysis plans, continued infectious workup and abtx, current state of cultures; we are in agreement. (2) Fever: concern for sepsis > at least 2 episodes of fever at her facility [employer]; afebrile since admission; potential sources include dialysis catheter, R arm, +/- spine given PMH osteomyelitis and chronic pain there >entresto and torsemide on hold d/t hypotension >> continue same >low threshold to image her lumbar spine if indicated (3) Elevated lactic acid level: moderate > continue infectious w/u and empiric therapy History of Present Illness Reason for Consultation: ESRD on MWF HD Requesting Physician: Dr Roberson Attending Physician: Jaylene Shi MD History of Present Illness 74 y/o F whom I'm asked to see for ESRD on MWF HD was admitted yesterday for evaluation of fever and hypotension at dialysis after presenting w/ temp 100.5 at dialysis yesterday and SBP sustained in 80s. She complained of malaise but specifically denied dyspnea, cough, palpitations, chest or abdominal pain, new/worrisome voiding sx (pt is anuric), rigors, new flank pain or worsened back pain or other new symptoms at the time. Apparently she had a F/chills on 03/31 though this was not reported to me; she told admitting team that these sx resolved by 04/01. F at dialysis did resolve w/ tylenol. She dialyzes via tunneled dialysis catheter which runs well and w/ no signs of infection at the exit site. Her systolic blood pressures on dialysis are normally in the 120- 130s. After drawing blood cultures at dialysis through [facility], we stopped her treatment after 2 hours and sent her to ER for evaluation. + sick contacts at her residential facility. PMH includes ESRD as above, moderate to severe presumed ischemic cardiomyopathy w/ EF 40% and multiple WMA including LAD territory on 12/2022 TTE w/ her [facility] soda dialyzer, moderate aortic stenosis, PAD, DM2 on insulin, h/o severe sepsis/bacteremia, GI bleed, hypothyroidism, AUDI, depression, HTN, chronic pain. She has had a series of R forearm/hand cellulitis episodes and wounds several of which were slow to heal. She has chronic ambulatory dysfunction and is essentially seated or in bed most of the time; transfers w/ a agapito lift at dialysis. Pt has large intradialytic wt gains generally and not uncommonly needs 7-8 kg off during first treatment of the week. We have increased her TW 3kg in the past 2 mos and more prior to that. Current TW is 94.5 kg; she presented yesterday w/ 98.2 kg pre treatment weight and was 97 kg post treatment. Noted on arrival to have WBC 12K w/ PMN shift, lactate low 2's, CxR and UA not suggestive of infection, biofire respiratory panel negative. SBP were in 80-90s for several hours but rebounded to 110s overnight. In the ER she had rocephin, morphine, and a 250 ML saline bolus. Blood cultures are pending. She was started on vancomycin and cefepime. today she feels much improved > no further F/C; malaise has resolved. not sob, no n/v, still w/ some soreness on backside and states her low back was quite sore on ambulance ride. no edema. chronic wounds on R forearm resolving/ mostly gone. Her son is at bedside today and pt thrilled Allergies Allergy/AdvReac Type Severity Reaction Status Date / Time cyclobenzaprine Allergy Unknown Woozy Verified 04/04/24 14:54 [From Flexeril] Home Medications Medication Instructions Recorded Confirmed Type acetaminophen 325 mg tablet 650 mg PO Q6 PRN Fever Or Pain 11/06/21 04/04/24 History (Tylenol) atorvastatin 80 mg tablet 80 mg PO HS 11/06/21 04/04/24 History gabapentin 100 mg capsule 100 mg PO TID 11/06/21 04/04/24 History pantoprazole 40 mg tablet,delayed 40 mg PO BID 11/06/21 04/04/24 History release insulin lispro 100 unit/mL See Rx Instructions .Route 11/13/21 04/04/24 Rx subcutaneous solution (Humalog .COMPLEX #10 mL U-100 Insulin) insulin glargine 100 unit/mL 10 unit subcut HS 04/11/22 04/04/24 History subcutaneous solution (Lantus U-100 Insulin) sucroferric oxyhydroxide 500 mg 500 mg PO TIDWMEAL 04/11/22 04/04/24 History chewable tablet (Velphoro) bisacodyl 10 mg rectal suppository 10 mg WV DAILY PRN Constipation 08/27/22 04/04/24 History (Dulcolax (bisacodyl)) cholecalciferol (vitamin D3) 125 125 mcg PO HS 08/27/22 04/04/24 History mcg (5,000 unit) tablet (Vitamin D3) multivitamin 1 tab PO HS 08/27/22 04/04/24 History polyethylene glycol 3350 17 17 g PO BID 08/27/22 04/04/24 History gram/dose oral powder (Miralax) sennosides 8.6 mg-docusate sodium 1 tab-cap PO BID 08/27/22 04/04/24 History 50 mg tablet (Senokot-S) sodium phosphates 19 gram-7 118 ml WV UD PRN Constipation 08/27/22 04/04/24 History gram/118 mL enema (Fleet Enema) calcium acetate(phosphat bind) 667 667 mg PO DAILY PRN Snacks 09/19/22 04/04/24 History mg tablet calcium acetate(phosphat bind) 667 1,334 mg PO TIDWMEAL 04/04/24 04/04/24 History mg capsule carboxymethylcellulose sodium 1 % 2 drp OPB BID 04/04/24 04/04/24 History eye drops (Artificial Tears (carboxymethylcellulose)) diclofenac sodium 1 % topical gel 2 g topical QID b/l hand pain 04/04/24 04/04/24 History fentanyl 50 mcg/hr transdermal 1 patch transdermal Q72H 04/04/24 04/04/24 History patch levothyroxine 175 mcg tablet 175 mcg PO HS 04/04/24 04/04/24 History midodrine 10 mg tablet 10 mg PO 3XWK 04/04/24 04/04/24 History morphine concentrate 100 mg/5 mL 10 mg PO 3XWK 04/04/24 04/04/24 History (20 mg/mL) oral solution morphine concentrate 100 mg/5 mL 10 mg PO Q4H PRN Pain 04/04/24 04/04/24 History (20 mg/mL) oral solution ondansetron HCl 4 mg tablet 4 mg PO 3XWK 04/04/24 04/04/24 History ondansetron HCl 4 mg tablet 4 mg PO Q6H PRN Nausea And Vomiting 04/04/24 04/04/24 History protein supplement 1 ea PO UD 04/04/24 04/04/24 History sacubitril 24 mg-valsartan 26 mg 1 tab PO HS 04/04/24 04/04/24 History tablet (Entresto) sucroferric oxyhydroxide 500 mg 500 mg PO DAILY PRN W/Snacks 04/04/24 04/04/24 History chewable tablet (Velphoro) torsemide 20 mg tablet 120 mg PO 2XWK 04/04/24 04/04/24 History vitamin B complex 1 tab PO HS 04/04/24 04/04/24 History Patient History Medical History Generalized weakness Shingles back-left flank onset 06/26/22 Diabetic ulcer of both feet 11/2021 Stable currently- had debridement 11/2021- wears [place] boots [facility] Encounter for removal of vascular catheter 08/2021 - Dr Inocencio Pablo (HD catheter) History of gastrointestinal bleeding 06/2021 No recent issues History of CVA (cerebrovascular accident) Several strokes ("many years since last stroke") Surgical History S/P arteriovenous (AV) graft placement 07/2022, [facility], [place] History of open reduction and internal fixation (ORIF) [place] [facility] [place] 08[place]20[place] - right calcaneal resection 2nd to osteomyelitis - Dr Dick Naqvi Family History Other No pertinent family history Social History Smoking Status: Never smoker Hx Alcohol Use: No Hx Substance Use: No Preferred Language: French Communication Ability: Effective 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 Required: No Beliefs That Will Affect Care: None Current Living Situation: [facility] Current Living Situation Comment: [facility] Other Information That Helps Us Care for You: No Feels Safe at Home: Yes Safety Concerns: Feels Safe At This Time Assistive Devices: Glasses, Slide Board and Wheelchair Review of Systems 2 Review of Systems: All systems reviewed & are unremarkable except as noted in HPI & below Physical Exam 2 Constitutional: well developed, well nourished, + physical limitations and cooperative; no acute distress Eyes: EOM intact bilaterally ENMT: Mouth: + dry oral mucous membranes Neck: no nuchal rigidity (no tenderness along T and L spines or paraspinally) Respiratory: normal respiratory effort Auscultation: + diminished lung sounds Cardiovascular: Rate/Rhythm: regular rate and regular rhythm Heart Sounds: + murmur Extremities: + edema (trace at most; no open wounds) Gastrointestinal (Abdomen): Inspection/Auscultation: normal bowel sounds P ercussion/Palpation: abdomen soft; abdomen nontender Musculoskeletal: Extremities: strength 5/5 throughout Skin: no rashes, warm and dry Neurologic: davis, fluent speech, no tremor Psychiatric: Orientation: alert and oriented x 3 Speech: normal rate/rhythm/volume of speech Results & Data Vital Signs (Past 12 Hours) Vital Signs Temp Pulse Pulse Resp BP BP Pulse Ox 04/05/24 07:00 36.8 C 89 19 135/64 97 04/05/24 02:29 36.6 C 87 18 118/68 94 04/04/24 22:44 36.6 C 74 20 118/68 97 04/04/24 22:01 67 O2 Del Method 04/05/24 07:00 Room Air 04/05/24 02:29 Room Air 04/04/24 22:44 Room Air 04/04/24 22:01 Laboratory Results 04/05/24 05:46 04/05/24 05:46 Diagnostic Findings CXR (image personally reviewed) no acute CP process
--- NOTE | 2024-04-05 09:12 | Pharmacy Report ---
Pharmacy PK ABX Note - Date of Service April 05, 2024 - Assessment and Plan Assessment 74 year old F receiving vancomycin and cefepime empirically. Presented with intermittent chills/body aches/fevers. Was sent to ER after becoming hypotensive while receiving dialysis yesterday 04/04. Patient is ESRD on dialysis MWF. Patient with hx of ESBL, MRSA infections. Blood cultures pending. Plan Vancomycin * Loading dose: 2000 mg x 1 - received last evening * Random level for vancomycin this AM was therapeutic ~17 mcg/ml - planning for another dialysis session today (2 hour only) to make up incomplete session yesterday. * Anticipate level to decrease with dialysis - Will order vancomycin 750 mg iv x 1 this afternoon for after dialysis * Will plan to reorder next random AM level prior to next dialysis session to assist with further dosing. Pharmacy will continue to follow and will adjust dose/frequency as necessary. Thank you.
--- NOTE | 2024-04-05 12:06 | Hospitalist Progress Note ---
Date of Service April 05, 2024 Assessment & Plan (1) Fever: Plan: Intermittent chills and body-aches that began on Sunday 04/01. Patient sent in after becoming hypotensive/febrile (100.5) while receiving dialysis on 04/04 Unclear source BioFire negative UA negative for infection CXR without acute findings On clinical exam, patient denies respiratory symptoms, abdominal pain, sinus pressure, rashes, tick bites, or ear/throat pain ? Right IJ tunneled dialysis catheter or L spine - although pain resolved after ambulance ride. Blood Cultures: pending [facility] blood cultures: pending Given her history of severe sepsis/bacteremia will cover with broad-spectrum antibiotics for now - Continue IV Cefepime q8h and Vancomycin Patient feeling much better after receiving antibiotics (2) ESRD (end stage renal disease) on dialysis: Plan: ESRD on HD M/W/F Last dialysis session was on Wednesday 04/04 (cut short due to hypotension/fever) Nephrology consult appreciated - continue binders - short run of dialysis today, 04/05 - plan for dialysis again 04/06 Also with anemia of chronic disease - hgb stable 9.3 (3) Diabetes: Plan: Last A1c at 7.0% on 03/28/2024. Home medication: Lantus 10u Hs Lantus 5 u BID while inpatient SSI; with target BSG range 110-140mg/dL, CF 45, carb ratio 15 BSG acceptable also with neuropathy -continue gabapentin (4) Hypotension: Plan: Patient was reportedly hypotensive during dialysis with SBP in the 90-100 range 99/57 in the ED - but improved since Hold Entresto and torsemide for now - potentially resume tomorrow (5) History of severe sepsis: Plan: Requiring ICU admission in 2021; secondary to diabetic foot wound/osteomyelitis MRSA infection 11/10/2021 Plan Chronic stable medical conditions: * CAD - continue statin * hypothyroid - continue Synthroid, recent TSH slightly elevated at 5 * Chronic pain - continue fentanyl patch, is on liquid morphine as needed-would avoid morphine in the setting of renal failure but defer to primary care physician for ongoing treatment Dispo: continued inpatient stay looking for infectious source and completing dialysis DVT proh: SQ Heparin Discussed case with Dr. Benedict Family updated at bedside 04/05 Admission and Anticipated Discharge Date Admission Date: April 04, 2024 Supervising Physician Co-Signing Physician Notes PA Supervision Note: I did not personally see or examine the patient today, but I verified all rausch points of LIZET Cottrell's assessment and plan with the following exceptions/additions: None Subjective Patient seen resting in bed. Reports feeling much better today and eager to go back to [facility]. She reports having back pain on the ride over in the ambulance but nothing in the last week or so No hardware or prior joint replacements - however chart review notes Right femur repair no known skin lesions good appetite, not short of breath Tele - SR 60-80s Review of Systems Review of Systems: All systems reviewed & are unremarkable except as noted in Subjective Physical Exam Physical Exam: General: NAD, VS as above, sitting up in bed Resp: normal respiratory effort, lungs clear to auscultation CV: RRR, + murmur, Abd: normal bowel sounds, non tender, no hepatosplenomegaly Extremities: Moves all extremities, no edema Back: no spinal tenderness or paraspinal tenderness Neuro: A&O x3, Skin: intact, no lesions noted. Does have mild erythema on coccyx area but no skin breakdown or signs of active infection Results & Data Results & Data Vital Signs (Past 12 Hours) Vital Signs Temp Pulse Pulse Resp BP BP Pulse Ox 04/05/24 11:45 98.4 F 85 17 130/70 95 04/05/24 08:00 90 04/05/24 08:00 04/05/24 07:00 98.2 F 89 19 135/64 97 04/05/24 02:29 97.9 F 87 18 118/68 94 O2 Del Method 04/05/24 11:45 Room Air 04/05/24 08:00 04/05/24 08:00 Room Air 04/05/24 07:00 Room Air 04/05/24 02:29 Room Air Laboratory Results CBC and chemistry reviewed PG Care Time/CCT Total # of Minutes Spent Total Time Spent with Patient: Total time spent is greater than 50% in coordination of care (as documented) at patient's floor/unit and/or counseling patient: Coding Level of Care Code 25479 SUB INP/OBS CARE 3/50MIN Diagnoses Fever R50.9 ESRD (end stage renal disease) on dialysis N18.6; Z99.2 Diabetes E11.9 Hypotension I95.9 History of severe sepsis Z86.19
[2024-04-05 14:32] LABS: Hep B Surface Ag with confirm Negative (Negative)
[2024-04-05] MEDS: HEPARIN SOD (PORCINE) 1000 UNIT/ML IV SCH (14:39)
[2024-04-05] MEDS: HEPARIN SOD (PORCINE) 1000 UNIT/ML IV ONE (14:39)
[2024-04-05] MEDS: MIDODRINE HCL 10 MG TAB PO STA (14:39)
[2024-04-05 14:41] LABS: Hepatitis B Surface Ab Quant 3.93 mIU/mL (>or=10mIU/mL Immune); Hepatitis B Surface Antibody Non-Immune
--- NOTE | 2024-04-05 15:18 | Dialysis Progress Note ---
Date of Service April 05, 2024 Assessment & Plan (1) ESRD (end stage renal disease) on dialysis: Plan: ESRD on HD at [facility] via [facility]. marked wt gain past several months but not overtly suffering from volume overload. had 1.5 L off yesterday but needed >4 L off per TW which has been repeatedly increased. -tolerating 2 hr HD today w/ up to 2.5L UF as tolerated; using customary OP heparin 1600/400 hourly -next HD tomorrow per clinical routine -continue binders -midodrine before HD -continue 1.5L FR (2) Fever: Plan: concern for sepsis > at least 2 episodes of fever at her facility [employer] [facility]; afebrile since admission; potential sources include dialysis catheter, R arm, +/- spine given PMH osteomyelitis and chronic pain there >entresto and torsemide on hold d/t hypotension >> continue same >low threshold to image her lumbar spine if indicated (3) Elevated lactic acid level: Plan: moderate > continue infectious w/u and empiric therapy Admission and Anticipated Discharge Date Admission Date: April 04, 2024 Subjective seen and evaluated on dialysis >> initially some lower BP but she responded well to 10 mg midodrine. no dyspnea, no uncontrolled pain, no malaise or fever Review of Systems Review of Systems: All systems reviewed & are unremarkable except as noted in Subjective Physical Exam Constitutional: well developed, well nourished and + physical limitations; no acute distress ENMT: Mouth: + dry oral mucous membranes Respiratory: normal respiratory effort Auscultation: + diminished lung sounds Cardiovascular: Rate/Rhythm: regular rate and regular rhythm Heart Sounds: + murmur Extremities: + edema (trace at most; no open wounds) Musculoskeletal: Extremities: strength 5/5 throughout Skin: no rashes, warm and dry Results & Data Vital Signs (Past 12 Hours) Vital Signs Temp Pulse Pulse Pulse Resp BP BP 04/05/24 15:00 83 116/57 L 04/05/24 14:30 85 91/58 L 04/05/24 14:00 78 97/56 L 04/05/24 13:44 36.8 C 80 04/05/24 11:45 36.9 C 85 17 130/70 04/05/24 08:00 90 04/05/24 08:00 04/05/24 07:00 36.8 C 89 19 135/64 Pulse Ox O2 Del Method 04/05/24 15:00 04/05/24 14:30 04/05/24 14:00 04/05/24 13:44 04/05/24 11:45 95 Room Air 04/05/24 08:00 04/05/24 08:00 Room Air 04/05/24 07:00 97 Room Air
[2024-04-05] MEDS: MIDODRINE HCL 10 MG TAB PO SCH (16:51)
[2024-04-05] MEDS: MoRPHine SULFATE 10 MG/0.5 ML UDP PO SCH (16:52)
[2024-04-05] MEDS: VANCOMYCIN 750 MG in SODIUM CHLORIDE 0.9% 250 ML IV ONE (16:56)
[2024-04-05] MEDS: CEFEPIME 1000MG 1,000 MG/10 ML SYR IV SCH (16:57)
[2024-04-05] MEDS: ONDANSETRON INJ 2 MG/ML 2 ML VIAL IV PRN (19:43)
[2024-04-06 05:48] LABS: Basophils # (auto) 0.03 K/uL (0.00-0.20); Basophils % (auto) 0.5 %; Eosinophils # (auto) 0.06 K/uL (0.00-0.50); Hematocrit (blood only) 26.7 % (37.0-47.0); Hemoglobin 8.6 g/dl (12.0-16.0); Immature Granulocytes # (auto) 0.05 K/uL (0.01-0.20); Immature Granulocytes % (auto) 0.9 %; Lymphocytes # (auto) 1.42 K/uL (1.20-3.40); Lymphocytes % (auto) 24.4 %; Mean Corpuscular Hemoglobin 32.2 pg (25.0-34.0); Mean Corpuscular Hgb Conc 32.2 g/dL (32.0-36.0); Mean Platelet Volume 10.6 fL (9.4-12.4); Monocytes # (auto) 0.64 K/uL (0.11-0.59); Neutrophils # (auto) 3.61 K/uL (1.40-6.50); Neutrophils % (auto) 62.2 %; Platelet Count 123 K/uL (130-400); RDW Coefficient of Variation 14.6 % (11.5-14.5); RDW Standard Deviation 53.5 fL (36.4-46.3); Red Blood Count 2.67 M/uL (4.20-5.40); White Blood Count 5.81 K/ul (4.8-10.8)
[2024-04-06 05:59] LABS: BUN Creatinine Ratio 7.4 (10-20); C Reactive Protein 5.88 mg/dl (0-0.5); Calcium 7.8 mg/dl (8.6-10.3); Creatinine Clr Calc Pharmacy 12.3 ml/min; Potassium 4.2 mmol/L (3.5-5.1)
[2024-04-06] MEDS: EPOETIN ALFA 20,000 UNITS/ML VIAL IV SCH (10:31)
[2024-04-06] MEDS: HEPARIN SOD (PORCINE) 1000 UNIT/ML IV ONE (10:31)
--- NOTE | 2024-04-06 12:37 | Dialysis Progress Note ---
Date of Service April 06, 2024 Assessment & Plan (1) ESRD (end stage renal disease) on dialysis: Plan: ESRD on HD at [facility] MWF via [facility]. marked wt gain past several months but not overtly suffering from volume overload. had 1.5 L off 04/04 but needed >4 L off per TW which has been repeatedly increased. tolerated 2 L UF 04/05. goal 4.5 L UF today -customary OP heparin 1600/400 hourly -next HD 04/08 per clinical routine -continue binders -midodrine before HD -continue 1.5L FR (2) Fever: Plan: concern for sepsis > at least 2 episodes of fever at her facility [facility]; afebrile since admission; potential sources include dialysis catheter, R arm, +/- spine given PMH osteomyelitis and chronic pain there. 04/04 blood cxs at [facility] at 48 hrs. CRP and lactate elevated >entresto and torsemide on hold d/t hypotension >> continue same >low threshold to image her lumbar spine if indicated -on cefepime and vanco (3) Complications, mechanical, catheter, dialysis: Plan: clamp on arterial limb is cracked > not impacting function currently but could break/make catheter unuseable >vascular consulted; case d/w them; primary service aware Admission and Anticipated Discharge Date Admission Date: April 04, 2024 Subjective seen on dialysis treatment. no further malaise. tolerating treatment well; no sob, no n/v, no f/c; ongoing back pain Review of Systems 2 Review of Systems: All systems reviewed & are unremarkable except as noted in Subjective Physical Exam 2 Constitutional: well developed, well nourished, + physical limitations and cooperative; no acute distress Eyes: EOM intact bilaterally ENMT: Mouth: + dry oral mucous membranes Respiratory: normal respiratory effort Auscultation: + diminished lung sounds Cardiovascular: Rate/Rhythm: regular rate and regular rhythm Heart Sounds: + murmur Extremities: + edema (trace at most; no open wounds) Musculoskeletal: Extremities: strength 5/5 throughout Skin: no rashes, warm and dry Psychiatric: Orientation: alert and oriented x 3 Speech: normal rate/rhythm/volume of speech Results & Data Vital Signs (Past 12 Hours) Vital Signs Temp Pulse Pulse Pulse Pulse Resp BP 04/06/24 11:30 75 145/68 H 12/04/24 11:00 71 128/64 12/04/24 10:51 66 04/06/24 10:30 79 135/65 04/06/24 10:00 04/06/24 10:00 74 144/68 H 04/06/24 09:30 82 139/72 04/06/24 09:20 83 148/71 H 04/06/24 09:15 37 C 72 20 L 04/06/24 07:00 36.6 C 65 17 04/06/24 02:38 36.6 C 72 18 BP Pulse Ox O2 Del Method 04/06/24 11:30 04/06/24 11:00 04/06/24 10:51 04/06/24 10:30 04/06/24 10:00 Room Air 04/06/24 10:00 04/06/24 09:30 04/06/24 09:20 04/06/24 09:15 04/06/24 07:00 146/74 H 97 Room Air 04/06/24 02:38 112/65 96 Room Air Laboratory Results 04/06/24 05:19 04/06/24 05:19
--- NOTE | 2024-04-06 14:08 | Hospitalist Progress Note ---
Date of Service April 06, 2024 Assessment & Plan (1) Fever: Plan: Intermittent chills and body-aches that began on Sunday 04/01. Patient sent in after becoming hypotensive/febrile (100.5) while receiving dialysis on 04/04 Unclear source BioFire negative UA negative for infection CXR without acute findings On clinical exam, patient denies respiratory symptoms, abdominal pain, sinus pressure, rashes, tick bites, or ear/throat pain ? Right IJ tunneled dialysis catheter - not red, no drainage ? L spine - MRI pending Blood Cultures: no growth at 24 hours [facility] blood cultures: no growth at 48 hours Given her history of severe sepsis/bacteremia will cover with broad-spectrum antibiotics for now - Continue IV Cefepime q8h and Vancomycin Patient feeling much better after receiving antibiotics. Will continue with broad spectrum abx while awaiting mri and blood cultures to be 48 hours. (2) ESRD (end stage renal disease) on dialysis: Plan: ESRD on HD M/W/F Last dialysis session was on Wednesday 04/04 (cut short due to hypotension/fever) Nephrology consult appreciated - continue binders - short run of dialysis 04/05 - dialysis again 04/06 to continue MWF schedule Dialysis catheter one of clamps is cracked ---> vascular surgery consulted Also with anemia of chronic disease - hgb stable (3) Diabetes: Plan: Last A1c at 7.0% on 03/28/2024. Home medication: Lantus 10u Hs Lantus 5 u BID while inpatient SSI; with target BSG range 110-140mg/dL, CF 45, carb ratio 15 BSG acceptable also with neuropathy -continue gabapentin (4) Hypotension: Plan: Patient was reportedly hypotensive during dialysis with SBP in the 90-100 range 99/57 in the ED - but improved since Will resume entresto for 04/07 Continue to hold torsemide (5) History of severe sepsis: Plan: Requiring ICU admission in 2021; secondary to diabetic foot wound/osteomyelitis MRSA infection 11/10/2021 Plan Chronic stable medical conditions: * CAD - continue statin * hypothyroid - continue Synthroid, recent TSH slightly elevated at 5 * Chronic pain - continue fentanyl patch, is on liquid morphine as needed-would avoid morphine in the setting of renal failure but defer to primary care physician for ongoing treatment Dispo: continued inpatient stay looking for infectious source and completing dialysis DVT proh: SQ Heparin Family updated at bedside 04/[address] Benedict Admission and Anticipated Discharge Date Admission Date: April 04, 2024 Supervising Physician Co-Signing Physician Notes PA Supervision Note: I did not personally see or examine the patient today, but I verified all rausch points of LIZET Cottrell's assessment and plan with the following exceptions/additions: None Subjective Patient seen during dialysis - not feeling as well as yesterday as she is having further back pain, she attributes this to the hospital bed being less comfortable. No chest pain or shortness of breath no fevers chills or night sweats Tele SR 70s Review of Systems Review of Systems: All systems reviewed & are unremarkable except as noted in Subjective Physical Exam Physical Exam: General: NAD, VS as above, lying in bed at dialysis, appears well Resp: normal respiratory effort, lungs clear to auscultation CV: RRR, + murmur, Abd: soft non tender, Extremities: Moves all extremities, no edema Results & Data Results & Data Vital Signs (Past 12 Hours) Vital Signs Temp Pulse Pulse Pulse Pulse Resp BP 04/06/24 13:53 98.6 F 88 04/06/24 13:30 79 97/58 L 04/06/24 13:00 91 H 124/68 04/06/24 12:30 85 124/71 04/06/24 12:00 82 118/67 04/06/24 11:30 75 145/68 H 04/06/24 11:00 71 128/64 04/06/24 10:51 66 04/06/24 10:30 79 135/65 04/06/24 10:00 04/06/24 10:00 74 144/68 H 04/06/24 09:30 82 139/72 04/06/24 09:20 83 148/71 H 04/06/24 09:15 98.6 F 72 20 L 04/06/24 07:00 97.9 F 65 17 04/06/24 02:38 97.9 F 72 18 BP Pulse Ox O2 Del Method 04/06/24 13:53 138/66 04/06/24 13:30 04/06/24 13:00 04/06/24 12:30 04/06/24 12:00 04/06/24 11:30 04/06/24 11:00 04/06/24 10:51 04/06/24 10:30 04/06/24 10:00 Room Air 04/06/24 10:00 04/06/24 09:30 04/06/24 09:20 04/06/24 09:15 04/06/24 07:00 146/74 H 97 Room Air 04/06/24 02:38 112/65 96 Room Air Laboratory Results cbc and chemsitry reviewed crp reviewed PG Care Time/CCT Total # of Minutes Spent Total Time Spent with Patient: Total time spent is greater than 50% in coordination of care (as documented) at patient's floor/unit and/or counseling patient: Coding Level of Care Code 77385 SUB INP/OBS CARE 3/50MIN Diagnoses Fever R50.9 ESRD (end stage renal disease) on dialysis N18.6; Z99.2 Diabetes E11.9 Hypotension I95.9 History of severe sepsis Z86.19
--- NOTE | 2024-04-06 14:10 | Pharmacy Report ---
Pharmacy PK ABX Note - Date of Service April 06, 2024 - Assessment and Plan Assessment 04/06 * Random vancomycin level this AM was 19 mcg/ml - dialysis session again today per her usual outpatient schedule. Expect level to decrease <15 mcg/ml with dialysis today therefore will order a supplemental dose of vancomycin 500 mg x 1 after dialysis today * Provider would like to continue with abx at least until tomorrow, has MRI of lumbar spine ordered 04/27 * 74 year old F receiving vancomycin and cefepime empirically. Presented with intermittent chills/body aches/fevers. Was sent to ER after becoming hypotensive while receiving dialysis yesterday 04/04. Patient is ESRD on dialys is MWF. Patient with hx of ESBL, MRSA infections. Blood cultures pending. Plan Vancomycin * Dialysis scheduled for today * Will give supplemental dose of vancomycin 500 mg x 1 for after dialysis * Plan to order next random level prior to next dialysis session to assist with further dosing. Pharmacy will continue to follow and will adjust dose/frequency as necessary. Thank you.
[2024-04-06] MEDS: ACETAMINOPHEN 325 MG TAB PO PRN (15:03)
[2024-04-06] MEDS: LIDOCAINE 5% 1 PATCH TD STA (15:04)
--- NOTE | 2024-04-06 15:59 | Consultation ---
Date of Consultation April 06, 2024 Assessment & Plan (1) Complications, mechanical, catheter, dialysis: Pt with cracked clamp on permcath end, requested to eval and repair. Per inpt HD unit, permcath functioning well. Discussed with Dr Pablo, planning on repair of permcath in OR on THURSDAY, 04/08. History of Present Illness Reason for Consultation: cracked permcath clamp Attending Physician: Jaylene hSi MD History of Present Illness 74 yo f with hx of ESRD on HD, GI bleed, hypothyroidism, DMII, anemia, ischemic cardiomyopathy, AUDI, neuropathy, HTN, depression, CAD, admitted to [facility], seen in consultation today for broken permcath clamp. Pt has been utilizing permcath for HD for some time, refuses to have AVF creation. States her clamp has been broken for months. Denies [place], fever, chest pain, SOB, abd calvo, N/V, rest pain, other complaints. Allergies Allergy/AdvReac Type Severity Reaction Status Date / Time cyclobenzaprine Allergy Unknown Woozy Verified 04/04/24 14:54 [From Flexeril] Home Medications Medication Instructions Recorded Confirmed Type acetaminophen 325 mg tablet 650 mg PO Q6 PRN Fever Or Pain 11/06/21 04/04/24 History (Tylenol) atorvastatin 80 mg tablet 80 mg PO HS 11/06/21 04/04/24 History gabapentin 100 mg capsule 100 mg PO TID 11/06/21 04/04/24 History pantoprazole 40 mg tablet,delayed 40 mg PO BID 11/06/21 04/04/24 History release insulin lispro 100 unit/mL See Rx Instructions .Route 11/13/21 04/04/24 Rx subcutaneous solution (Humalog .COMPLEX #10 mL U-100 Insulin) insulin glargine 100 unit/mL 10 unit subcut HS 04/11/22 04/04/24 History subcutaneous solution (Lantus U-100 Insulin) sucroferric oxyhydroxide 500 mg 500 mg PO TIDWMEAL 04/11/22 04/04/24 History chewable tablet (Velphoro) bisacodyl 10 mg rectal suppository 10 mg MD DAILY PRN Constipation 08/27/22 04/04/24 History (Dulcolax (bisacodyl)) cholecalciferol (vitamin D3) 125 125 mcg PO HS 08/27/22 04/04/24 History mcg (5,000 unit) tablet (Vitamin D3) multivitamin 1 tab PO HS 08/27/22 04/04/24 History polyethylene glycol 3350 17 17 g PO BID 08/27/22 04/04/24 History gram/dose oral powder (Miralax) sennosides 8.6 mg-docusate sodium 1 tab-cap PO BID 08/27/22 04/04/24 History 50 mg tablet (Senokot-S) sodium phosphates 19 gram-7 118 ml MD UD PRN Constipation 08/27/22 04/04/24 History gram/118 mL enema (Fleet Enema) calcium acetate(phosphat bind) 667 667 mg PO DAILY PRN Snacks 09/19/22 04/04/24 History mg tablet calcium acetate(phosphat bind) 667 1,334 mg PO TIDWMEAL 04/04/24 04/04/24 History mg capsule carboxymethylcellulose sodium 1 % 2 drp OPB BID 04/04/24 04/04/24 History eye drops (Artificial Tears (carboxymethylcellulose)) diclofenac sodium 1 % topical gel 2 g topical QID b/l hand pain 04/04/24 04/04/24 History fentanyl 50 mcg/hr transdermal 1 patch transdermal Q72H 04/04/24 04/04/24 History patch levothyroxine 175 mcg tablet 175 mcg PO HS 04/04/24 04/04/24 History midodrine 10 mg tablet 10 mg PO 3XWK 04/04/24 04/04/24 History morphine concentrate 100 mg/5 mL 10 mg PO 3XWK 04/04/24 04/04/24 History (20 mg/mL) oral solution morphine concentrate 100 mg/5 mL 10 mg PO Q4H PRN Pain 04/04/24 04/04/24 History (20 mg/mL) oral solution ondansetron HCl 4 mg tablet 4 mg PO 3XWK 04/04/24 04/04/24 History ondansetron HCl 4 mg tablet 4 mg PO Q6H PRN Nausea And Vomiting 04/04/24 04/04/24 History protein supplement 1 ea PO UD 04/04/24 04/04/24 History sacubitril 24 mg-valsartan 26 mg 1 tab PO HS 04/04/24 04/04/24 History tablet (Entresto) sucroferric oxyhydroxide 500 mg 500 mg PO DAILY PRN W/Snacks 04/04/24 04/04/24 History chewable tablet (Velphoro) torsemide 20 mg tablet 120 mg PO 2XWK 04/04/24 04/04/24 History vitamin B complex 1 tab PO HS 04/04/24 04/04/24 History Patient History Medical History Generalized weakness Shingles back-left flank onset 06/26/22 Diabetic ulcer of both feet 11/2021 Stable currently- had debridement 11/2021- wears [place] boots [facility] resident [place] Encounter for removal of vascular catheter 08/2021 - Dr Inocencio Pablo (HD catheter) History of gastrointestinal bleeding 06/2021 No recent issues History of CVA (cerebrovascular accident) Several strokes ("many years since last stroke") Surgical History S/P arteriovenous (AV) graft placement 07/2022, [facility] History of open reduction and internal fixation (ORIF) procedure RT IM NAILING 08/06/22 AT [facility] H/O foot surgery 08/2021 - right calcaneal resection 2nd to osteomyelitis - Dr Dick Naqvi Family History Other No pertinent family history Social History Smoking Status: Never smoker Hx Alcohol Use: No Hx Substance Use: No Preferred Language: Mongolian Communication Ability: Effective Byproducts Supervisor Required: No Beliefs That Will Affect Care: None Current Living Situation: Assisted Current Living Situation Comment: [facility] Other Information That Helps Us Care for You: No Feels Safe at Home: Yes Safety Concerns: Feels Safe At This Time Assistive Devices: Wheelchair Review of Systems Review of Systems: All systems reviewed & are unremarkable except as noted in HPI & below Physical Exam Constitutional: WD/WN, vitals as above cooperative and comfortable; not in distress Respiratory: normal respiratory effort, lungs clear to auscultation Auscultation: + diminished lung sounds Cardiovascular: Rate/Rhythm: regular rate and regular rhythm Vessels: radial pulses present; + abnormal peripheral pulses Extremities: normal capillary refill and + vascular access device (R IJ, cracked clamp) Gastrointestinal (Abdomen): Inspection/Auscultation: abdomen normal to inspection and normal bowel sounds Percussion/Palpation: abdomen soft; abdomen nontender Musculoskeletal: no cyanosis or clubbing, extremities motor strength 5/5 Skin: no rashes, warm and dry Neurologic: moves all extremities and awake; no focal motor deficits and not confused Psychiatric: A+Ox3, euthymic affect Results & Data Vital Signs (Past 12 Hours) Vital Signs Temp Pulse Pulse Pulse Pulse Resp BP 04/06/24 15:41 36.9 C 102 H 18 04/06/24 13:53 37 C 88 04/06/24 13:30 79 97/58 L 04/06/24 13:00 91 H 124/68 04/06/24 12:30 85 124/71 04/06/24 12:00 82 118/67 04/06/24 11:30 75 145/68 H 04/06/24 11:00 71 128/64 04/06/24 10:51 66 04/06/24 10:30 79 135/65 04/06/24 10:00 04/06/24 10:00 74 144/68 H 04/06/24 09:30 82 139/72 04/06/24 09:20 83 148/71 H 04/06/24 09:15 37 C 72 20 L 04/06/24 07:00 36.6 C 65 17 BP Pulse Ox O2 Del Method 04/06/24 15:41 90/59 L 93 Room Air 04/06/24 13:53 138/66 04/06/24 13:30 04/06/24 13:00 04/06/24 12:30 04/06/24 12:00 04/06/24 11:30 04/06/24 11:00 04/06/24 10:51 04/06/24 10:30 04/06/24 10:00 Room Air 04/06/24 10:00 04/06/24 09:30 04/06/24 09:20 04/06/24 09:15 04/06/24 07:00 146/74 H 97 Room Air
[2024-04-06] MEDS: VANCOMYCIN IV ONE (16:01)
[2024-04-06] MEDS: D5W IV ONE (16:01)
[2024-04-06] MEDS: HEPARIN SOD (PORCINE) 1000 UNIT/ML IV SCH (17:43)
--- NOTE | 2024-04-06 18:38 | Magnetic Resonance Report ---
Clinical History: Lower back pain Technique: Sagittal and axial T1 and T2-weighted magnetic resonance images were obtained of the lumbar spine without gadolinium contrast. Findings: There is mild scoliosis. No listhesis is seen. There is interbody bony fusion at L4-5. No metallic instrumentation is seen. There are degenerative endplate changes at T10-11 and to a lesser extent at L3-L4 and L5-S1. No focal osseous lesion is evident. No fracture is identified. There is no definite sign of infection. There is no sign of acute ligamentous injury. The conus medullaris appears normal, terminating at the level of T12-L1. There is bilateral renal cortical atrophy At T10-11, seen on only the sagittal images, there is apparent spinal cord deformity due to a disc bulge. There is left greater than right neural foramen narrowing that may affect the left T10 nerve root At T11-12 and T12-L1, seen on only the sagittal images, there are disc bulges without spinal stenosis or definite nerve root compression At L1-L2, no pathology is seen At L2-L3, there is mild spinal stenosis due to a disc bulge and facet osteoarthritis. There is no apparent compression of the traversing nerve roots. There is mild bilateral neural foramen narrowing At L3-L4, there is severe spinal stenosis due to a disc bulge, a broad-based central disc protrusion, and facet osteoarthritis. There is compression of the traversing nerve roots. There is left greater than right neural foramen narrowing that may affect the left L3 nerve root At L4-L5, there is severe spinal stenosis due to a disc bulge, a broad-based central disc protrusion, and facet osteoarthritis. There is compression of the traversing nerve roots. There is left greater than right neural foramen narrowing that may affect the left L4 nerve root At L5-S1, there is severe spinal stenosis due to a disc bulge, a central disc protrusion, and facet osteoarthritis. There is compression of the traversing nerve roots. There is bilateral neural foramen narrowing that may affect the exiting L5 roots Impression: 1. Mild scoliosis 2. Spinal stenosis at T10-11 with apparent spinal cord deformity due to a disc bulge. This thoracic level was not fully evaluated on this lumbar spine study. 3. Severe spinal stenosis from L3-4 through L5-S1 with compression of the traversing nerve roots 4. Mild spinal stenosis at L2-3, without compression of the traversing nerve roots 5. Facet osteoarthritis from L2-3 through L5-S1 6. Left T10-11, left L3-4, left L4-5, and bilateral L5-S1 neural foramen narrowing. This may affect the exiting nerve roots Electronically signed by Layton Mansfield 04-06-2024 6:38 PM
[2024-04-07 07:29] LABS: Basophils # (auto) 0.04 K/uL (0.00-0.20); Basophils % (auto) 0.9 %; Eosinophils # (auto) 0.06 K/uL (0.00-0.50); Eosinophils % (auto) 1.3 %; Hematocrit (blood only) 30.5 % (37.0-47.0); Hemoglobin 9.8 g/dl (12.0-16.0); Immature Granulocytes % (auto) 2.2 %; Lymphocytes # (auto) 1.21 K/uL (1.20-3.40); Lymphocytes % (auto) 26.5 %; Mean Corpuscular Hemoglobin 31.6 pg (25.0-34.0); Mean Corpuscular Hgb Conc 32.1 g/dL (32.0-36.0); Mean Corpuscular Volume 98.4 fL (80.0-100.0); Mean Platelet Volume 10.3 fL (9.4-12.4); Monocytes % (auto) 13.2 %; Neutrophils # (auto) 2.55 K/uL (1.40-6.50); Neutrophils % (auto) 55.9 %; Platelet Count 117 K/uL (130-400); RDW Coefficient of Variation 14.4 % (11.5-14.5); RDW Standard Deviation 52.2 fL (36.4-46.3); White Blood Count 4.56 K/ul (4.8-10.8)
[2024-04-07 07:48] LABS: BUN Creatinine Ratio 5.7 (10-20); C Reactive Protein 4.05 mg/dl (0-0.5); Calcium 8.4 mg/dl (8.6-10.3); Creatinine Clr Calc Pharmacy 16.3 ml/min; Potassium 4.7 mmol/L (3.5-5.1)
[2024-04-07] MEDS ORDERED: LIDOCAINE 5% 1 PATCH TD PRN (09:00)
--- NOTE | 2024-04-07 12:13 | Hospitalist Progress Note ---
Date of Service April 07, 2024 Assessment & Plan (1) Fever: Plan: Intermittent chills and body-aches that began on Sunday 04/01. Patient sent in after becoming hypotensive/febrile (100.5) while receiving dialysis on 04/04 Unclear source BioFire negative UA negative for infection CXR without acute findings L -spine: MRI with chronic changes and stenosis, no evidence of infection ? Right IJ tunneled dialysis catheter - not red, no drainage ? dental - has chronic issues Blood Cultures: no growth at 48 hours [facility] blood cultures: no growth at 48 hours Received Cefepime and Vancomycin - improvement with unknown source, no evidence of bacteremia - will deescalate to Augmentin - renally dosed (2) ESRD (end stage renal disease) on dialysis: Plan: ESRD on HD M// Last dialysis session was on Wednesday 04/04 (cut short due to hypotension/fever) Nephrology consult appreciated - continue binders - short run of dialysis 04/05 - dialysis again 04/06 to continue MWF schedule Dialysis catheter one of clamps is cracked ---> vascular surgery consulted - plan for repair 04/08 Also with anemia of chronic disease - hgb stable (3) Diabetes: Plan: Last A1c at 7.0% on 03/28/2024. Home medication: Lantus 10u Hs Lantus 5 u BID while inpatient SSI; with target BSG range 110-140mg/dL, CF 45, carb ratio 15 BSG acceptable also with neuropathy -continue gabapentin (4) Hypotension: Plan: Patient was reportedly hypotensive during dialysis with SBP in the 90-100 range 99/57 in the ED - but improved since Will resume entresto for 04/07 Continue to hold torsemide Giving midodrine with HD (5) History of severe sepsis: Plan: Requiring ICU admission in 2021; secondary to diabetic foot wound/osteomyelitis MRSA infection 11/10/2021 Plan Chronic stable medical conditions: * CAD - continue statin * hypothyroid - continue Synthroid, recent TSH slightly elevated at 5 * Chronic pain - continue fentanyl patch, is on liquid morphine scheduled prior to dialysis and also as needed-would avoid morphine in the setting of renal failure but defer to primary care physician for ongoing treatment. Will add prn oxycodone. Dispo: continued inpatient stay, continuing to monitor for infectious source, OR and dialysis tomorrow DVT proh: SQ Heparin Family updated at bedside 04/[address] Benedict Admission and Anticipated Discharge Date Admission Date: April 04, 2024 Supervising Physician Co-Signing Physician Notes LIZET Supervision Note: I did not personally see or examine the patient today, but I verified all rausch points of LIZET Cottrell's assessment and plan with the following exceptions/additions: None Subjective Patient seen lying in bed, in good spirits. When talking about her hospital course and source of infection - she mentions her poor dentition and that she occasionally has tooth pain depending on what she eats Also a few days ago had some unsettling in her stomach, that she said was similar to when she has had UTIs in the past. Left heel pain - callus present, no signs of infection Tele 70-80s Review of Systems Review of Systems: All systems reviewed & are unremarkable except as noted in Subjective Physical Exam Physical Exam: General: NAD, VS as above, lying in bed, appears well HEENT: MMM, poor dentition with multiple areas of decay on remaining lower teeth. Upper teeth absent. No obvious abscess. nontender to palpation. No lymphadenopathy. Resp: normal respiratory effort, lungs clear to auscultation CV: RRR, + murmur, Abd: soft non tender, no RUQ tenderness. Extremities: Moves all extremities, no edema. Feet nontender to palation. Left heel with callus formation, no opening or signs of infection. Results & Data Results & Data Vital Signs (Past 12 Hours) Vital Signs Temp Pulse Pulse Pulse Resp BP BP 04/07/24 11:05 98.4 F 79 18 126/72 04/07/24 08:00 04/07/24 08:00 88 04/07/24 07:24 98.2 F 88 17 141/71 H 04/07/24 02:47 97.7 F 61 18 115/78 Pulse Ox O2 Del Method 04/07/24 11:05 96 Room Air 04/07/24 08:00 Room Air 04/07/24 08:00 04/07/24 07:24 97 Room Air 04/07/24 02:47 96 Room Air Laboratory Results CBC and chemistry reviewed PG Care Time/CCT Total # of Minutes Spent Total Time Spent with Patient: Total time spent is greater than 50% in coordination of care (as documented) at patient's floor/unit and/or counseling patient: Coding Level of Care Code 00804 SUB INP/OBS CARE 350MIN Diagnoses Fever R50.9 ESRD (end stage renal disease) on dialysis N18.6; Z99.2 Diabetes E11.9 Hypotension I95.9 History of severe sepsis Z86.19
--- NOTE | 2024-04-07 12:44 | Nephrology Progress Note ---
Date of Service April 07, 2024 Assessment & Plan (1) ESRD (end stage renal disease) on dialysis: Plan: ESRD on HD at [facility] MWF via [facility]. marked wt gain past several months but not overtly suffering from volume overload. had 1.5 L off 04/04 but needed >4 L off per TW which has been repeatedly increased. tolerated 2 L UF 04/05. Tolerated 4.4L UF yesterday -customary OP heparin 1600/400 hourly -next HD 04/08 per clinical routine > orders in and broadcast supervisor aware to work around vascular; 4-5L UF target as bp tolerates and 1200 unit hep bolus instead of standard 1600 unit -continue binders -midodrine before HD -continue 1.5L FR >hgb down to 9.8 > Epo 20K w/ HD in AM Care coordinated repeatedly w/ primary service re blood culture updated results, further infectious w/u & abtx plan, vascular procedure; we are in agreement. (2) Fever: Plan: concern for sepsis > at least 2 episodes of fever at her facility [employer]; afebrile since admission; potential sources include dialysis catheter, R arm, +/- spine given PMH osteomyelitis and chronic pain there. 04/04 [facility] at 48 hrs. CRP and lactate elevated. MRI negative L spine for acute or chronic infection >entresto and torsemide on hold d/t hypotension >> continue same >? dental source -on cefepime and vanco but primary service to narrow (3) Complications, mechanical, catheter, dialysis: Plan: clamp on arterial limb is cracked > not impacting function currently but could break/make catheter unuseable >appreciate vascular input > for repair in am Admission and Anticipated Discharge Date Admission Date: April 04, 2024 Subjective [facility] blood cxs officially NGTD at 48 hrs as of midday today. for permcath clamp repair in OR 04/08 Review of Systems 2 Review of Systems: All systems reviewed & are unremarkable except as noted in Subjective Physical Exam 2 Constitutional: well developed, well nourished, + physical limitations and cooperative; no acute distress Eyes: EOM intact bilaterally ENMT: Mouth: + dry oral mucous membranes Neck: no nuchal rigidity (no tenderness along T and L spines or paraspinally) Respiratory: normal respiratory effort Auscultation: + diminished lung sounds Cardiovascular: Rate/Rhythm: regular rate and regular rhythm Heart Sounds: + murmur Extremities: + edema (trace at most; no open wounds) Gastrointestinal (Abdomen): Inspection/Auscultation: normal bowel sounds P ercussion/Palpation: abdomen soft; abdomen nontender Musculoskeletal: Extremities: strength 5/5 throughout Skin: no rashes, warm and dry Psychiatric: Orientation: alert and oriented x 3 Speech: normal rate/rhythm/volume of speech Results & Data Vital Signs (Past 12 Hours) Vital Signs Temp Pulse Pulse Pulse Resp BP BP 04/07/24 11:05 36.9 C 79 18 126/72 04/07/24 08:00 04/07/24 08:00 88 04/07/24 07:24 36.8 C 88 17 141/71 H 04/07/24 02:47 36.5 C 61 18 115/78 Pulse Ox O2 Del Method 04/07/24 11:05 96 Room Air 04/07/24 08:00 Room Air 04/07/24 08:00 04/07/24 07:24 97 Room Air 04/07/24 02:47 96 Room Air Laboratory Results 04/07/24 07:14 04/07/24 07:14 Diagnostic Findings L spine MRI severe spinal stenosis mutliple levels w/ nerve root compression but no OM
[2024-04-07] MEDS: oxyCODONE HCL IR 5 MG TAB (IMMEDIATE RELEASE) PO PRN (12:52)
[2024-04-07] MEDS: AMOXICILLIN/CLAVULANATE 500 MG TAB PO SCH (17:34)
[2024-04-07] MEDS: VALSARTAN/SACUBITRIL 26/24MG TAB PO SCH (21:08)
[2024-04-07] MEDS: oxyCODONE HCL IR 5 MG TAB (IMMEDIATE RELEASE) PO STA (23:53)
[2024-04-08 06:16] LABS: Hematocrit (blood only) 29.3 % (37.0-47.0); Hemoglobin 9.5 g/dl (12.0-16.0); Mean Corpuscular Hemoglobin 32.3 pg (25.0-34.0); Mean Corpuscular Hgb Conc 32.4 g/dL (32.0-36.0); Mean Corpuscular Volume 99.7 fL (80.0-100.0); Mean Platelet Volume 10.8 fL (9.4-12.4); Platelet Count 124 K/uL (130-400); RDW Coefficient of Variation 14.2 % (11.5-14.5); RDW Standard Deviation 51.2 fL (36.4-46.3); Red Blood Count 2.94 M/uL (4.20-5.40); White Blood Count 5.47 K/ul (4.8-10.8)
[2024-04-08] MEDS ORDERED: HEPARIN SOD (PORCINE) 1000 UNIT/ML IV ONE (07:00)
[2024-04-08] MEDS ORDERED: EPOETIN ALFA 20,000 UNITS/ML VIAL IV ONE (07:00)
[2024-04-08 09:21] LABS: BUN Creatinine Ratio 5.7 (10-20); Calcium 8.4 mg/dl (8.6-10.3); Creatinine Clr Calc Pharmacy 10.7 ml/min
[2024-04-08 09:26] LABS: Potassium 3.9 mmol/L (3.5-5.1)
--- NOTE | 2024-04-08 09:30 | Operative Report ---
Post Operative Report Pre & Post Diagnosis Operation Date: 04/08/24 08:45 Pre op dx: cracked clamp of permcath Post op dx: cracked clamp of permcath I identified the patient and participated in the time-out.: Yes Procedure Operation Date: 04/08/24 08:45 Repair of permcath Surgeon Inocencio Pablo MD Author none Estimated Blood Loss 0 Findings Consistent with Post-Op Diagnosis Specimens none Anesthesia Type None Complications none Disposition Accompanied Patient To Recovery: No Disposition: Recovery Room Indications Patient with a permcath in place for diaysis with a cracked clamp of arterial port. Repair was recommended. I have discussed the risks options and benefits of the procedure with the patient. The patient understands the risks options and benefits and agrees to the procedure. Description of Procedure The patient was placed in a supine position. The permcath was prepped and draped in a sterile fashion. The patient was identified and a timeout performed. The arterial port was clamp proximally and the distal catheter transected. The broken clamp was removed. A new clamp with an extension was placed on the permcath and securely fastened in place. The catheter aspirated easily and was flushed with heparinized saline. The catheter was then instilled with heparin. A sterile dressing was placed on the catheter. The patient left the procedure room in satisfactory condition and tolerated the procedure well. I attest to the content of the Intraoperative Record and any orders documented therein. Any exceptions are noted below.
[2024-04-08] MEDS: DICLOFENAC SOD 1% GEL 100 GM TUBE EXT SCH (09:45)
[2024-04-08] MEDS: HEPARIN SOD (PORCINE) 5,000 UNITS/ML VIAL ONE (13:53)
--- NOTE | 2024-04-08 15:00 | Hospitalist Progress Note ---
Date of Service April 08, 2024 Assessment & Plan (1) Fever: Plan: Intermittent chills and body-aches that began on Sunday 04/01. Patient sent in after becoming hypotensive/febrile (100.5) while receiving dialysis on 04/04 Unclear source BioFire negative UA negative for infection CXR without acute findings L -spine: MRI with chronic changes and stenosis, no evidence of infection ? Right IJ tunneled dialysis catheter - not red, no drainage ? dental - has chronic issues Blood Cultures: no growth at 48 hours [facility] blood cultures: no growth at 48 hours Received Cefepime and Vancomycin - improvement with unknown source, no evidence of bacteremia - will deescalate to Augmentin - renally dosed continues to be afebrile, without leukocytosis and asymptotic with deescalation. continue Augmentin empirically for possible dental infection (2) ESRD (end stage renal disease) on dialysis: Plan: ESRD on HD M/W/F Last dialysis session was on Wednesday 04/04 (cut short due to hypotension/fever) Nephrology consult appreciated - continue binders - short run of dialysis 04/05 - dialysis again 04/06 to continue MWF schedule Dialysis catheter one of clamps is cracked ---> vascular surgery consulted - plan for repair 04/08 Also with anemia of chronic disease - hgb stable (3) Diabetes: Plan: Last A1c at 7.0% on 03/28/2024. Home medication: Lantus 10u Hs Lantus 5 u BID while inpatient SSI; with target BSG range 110-140mg/dL, CF 45, carb ratio 15 BSG acceptable also with neuropathy -continue gabapentin (4) Hypotension: Plan: Patient was reportedly hypotensive during dialysis with SBP in the 90-100 range 99/57 in the ED - but improved since Will resume entresto for 04/07 Continue to hold torsemide Giving midodrine with HD (5) History of severe sepsis: Plan: Requiring ICU admission in 2021; secondary to diabetic foot wound/osteomyelitis MRSA infection 11/10/2021 Plan Chronic stable medical conditions: * CAD - continue statin * hypothyroid - continue Synthroid, recent TSH slightly elevated at 5 * Chronic pain - continue fentanyl patch, is on liquid morphine scheduled prior to dialysis and also as needed-would avoid morphine in the setting of renal failure but defer to primary care physician for ongoing treatment. Dispo: continued inpatient stay, OR and dialysis today - plan for d/c back to [facility] tomorrow DVT proh: SQ Heparin Family updated at bedside 04/05 Admission and Anticipated Discharge Date Admission Date: April 04, 2024 Supervising Physician Co-Signing Physician Notes PA Supervision Note: I did not personally see or examine the patient today, but I verified all rausch points of LIZET Cottrell's assessment and plan with the following exceptions/additions: None Subjective Patient seen sitting up in bed eating lunch. Reports feeling very well today. Clamp changes without issues no new areas of pain or concern for sources of infection very eager to return to [facility] Review of Systems Review of Systems: All systems reviewed & are unremarkable except as noted in Subjective Physical Exam Physical Exam: General: NAD, VS as above, lying in bed, appears well Resp: normal respiratory effort, lungs clear to auscultation CV: RRR, + murmur, Abd: soft non tender, no RUQ tenderness. Extremities: Moves all extremities Results & Data Results & Data Vital Signs (Past 12 Hours) Vital Signs Temp Pulse Pulse Resp BP BP Pulse Ox 04/08/24 11:36 98.4 F 77 18 116/66 94 04/08/24 08:29 97.9 F 79 15 160/75 H 98 04/08/24 07:32 63 04/08/24 07:14 98.1 F 77 16 127/78 95 04/08/24 03:06 98.1 F 75 18 133/63 94 O2 Del Method 04/08/24 11:36 Room Air 04/08/24 08:29 Room Air 04/08/24 07:32 04/08/24 07:14 Room Air 04/08/24 03:06 Room Air Laboratory Results cbc and chemistry reviewed PG Care Time/CCT Total # of Minutes Spent Total Time Spent with Patient: Total time spent is greater than 50% in coordination of care (as documented) at patient's floor/unit and/or counseling patient: Coding Level of Care Code 03829 SUB INP/OBS CARE 2/35MIN Diagnoses Fever R50.9 ESRD (end stage renal disease) on dialysis N18.6; Z99.2 Diabetes E11.9 Hypotension I95.9 History of severe sepsis Z86.19
--- NOTE | 2024-04-08 16:46 | Nephrology Progress Note ---
Date of Service April 08, 2024 Assessment & Plan (1) ESRD (end stage renal disease) on dialysis: Plan: ESRD on HD at [facility] MWF via [facility]. marked wt gain past several months but not overtly suffering from volume overload. had 1.5 L off 04/04 but needed >4 L off per TW which has been repeatedly increased. tolerated 2 L UF 12/3. Tolerated 4.4L UF 12/4 -customary OP heparin 1600/400 hourly -next HD today per clinical routine > orders in and pouch maker aware to work around vascular; 4-5L UF target as bp tolerates and 1200 unit hep bolus instead of standard 1600 unit -continue binders -midodrine before HD -continue 1.5L FR >hgb down to 9.8 > Epo 20K w/ HD in AM while HD patients do not typically take morphine or other opiates, this patient has significant chronic pain which has been carefully optimized over months >> suggest resuming her OP regimen if feasible got new clamp/extension to address malfunctioning CVC today Care coordinated w/ primary service re blood culture updated results, pain mgt, vascular procedure. (2) Fever: Plan: concern for sepsis > at least 2 episodes of fever at her facility [employer]; afebrile since admission; potential sources include dialysis catheter, R arm, +/- spine given PMH osteomyelitis and chronic pain there. 04/04 blood cxs at [facility] at 48 hrs. CRP and lactate elevated. MRI negative L spine for acute or chronic infection >entresto and torsemide on hold d/t hypotension >> continue same >? dental source -on cefepime and vanco but primary service to narrow (3) Complications, mechanical, catheter, dialysis: Plan: clamp on arterial limb is cracked > not impacting function currently but could break/make catheter unuseable >appreciate vascular input > s/p repair today Admission and Anticipated Discharge Date Admission Date: April 04, 2024 Subjective seen on early AM rounds. no sob, no n/v, no edema but uncontrolled back pain and worried her routine /chronic pain mgt regimen has been modified. tolerating dialysis well Review of Systems 2 Review of Systems: All systems reviewed & are unremarkable except as noted in Subjective Physical Exam 2 Constitutional: well developed, well nourished, + physical limitations and cooperative; no acute distress Eyes: EOM intact bilaterally ENMT: Mouth: + dry oral mucous membranes Respiratory: normal respiratory effort Auscultation: + diminished lung sounds Cardiovascular: Rate/Rhythm: regular rate and regular rhythm Heart Sounds: + murmur Extremities: + edema (trace at most; no open wounds) Gastrointestinal (Abdomen): Inspection/Auscultation: normal bowel sounds P ercussion/Palpation: abdomen soft; abdomen nontender Musculoskeletal: Extremities: strength 5/5 throughout Skin: no rashes, warm and dry Psychiatric: Orientation: alert and oriented x 3 Speech: normal rate/rhythm/volume of speech Results & Data Vital Signs (Past 12 Hours) Vital Signs Temp Pulse Pulse Resp BP BP Pulse Ox 04/08/24 16:12 36.9 C 69 18 130/79 95 04/08/24 16:00 72 04/08/24 11:36 36.9 C 77 18 116/66 94 04/08/24 08:29 36.6 C 79 15 160/75 H 98 04/08/24 07:32 63 04/08/24 07:14 36.7 C 77 16 127/78 95 O2 Del Method 04/08/24 16:12 Room Air 04/08/24 16:00 04/08/24 11:36 Room Air 04/08/24 08:29 Room Air 04/08/24 07:32 04/08/24 07:14 Room Air Laboratory Results 04/08/24 05:20 04/08/24 05:20
[2024-04-08] MEDS: MoRPHine SULFATE 10 MG/0.5 ML UDP PO PRN (19:39)
[2024-04-08] MEDS: EPOETIN ALFA 10,000 UNITS/ML VIAL IV ONE (21:38)
[2024-04-08] MEDS ORDERED: Nursing to Pharmacy Communication SCH (21:45)
[2024-04-08] MEDS: HEPARIN SOD (PORCINE) 1000 UNIT/ML IV ONE (23:17)
[2024-04-08] MEDS: HEPARIN SOD (PORCINE) 1000 UNIT/ML IV SCH (23:17)
[2024-04-09 07:34] VITALS: RESP 19; TEMP 98.1; O2SAT 96
--- NOTE | 2024-04-09 09:29 | Discharge Summary ---
Discharge Summary Date of Service April 09, 2024 Principal Dx & Hospital Course #1 = Principal Diagnosis (1) Fever: Intermittent chills and body-aches that began on Sunday 04/01. Patient sent in after becoming hypotensive/febrile (100.5) while receiving dialysis on 04/04 Unclear source BioFire negative UA negative for infection CXR without acute findings L -spine: MRI with chronic changes and stenosis, no evidence of infection ? Right IJ tunneled dialysis catheter - not red, no drainage ? dental - has chronic issues Blood Cultures: no growth at 48 hours [facility] blood cultures: no growth at 48 hours Received Cefepime and Vancomycin - improvement with unknown source, no evidence of bacteremia - will deescalate to Augmentin - renally dosed continues to be afebrile, without leukocytosis and asymptotic with deescalation. continue Augmentin empirically for possible dental infection discharge back to [facility] today (2) ESRD (end stage renal disease) on dialysis: ESRD on HD M/W/F Last dialysis session was on Wednesday 04/04 (cut short due to hypotension/fever) Nephrology consult appreciated - continue binders - short run of dialysis 04/05 - dialysis again 04/06 to continue MWF schedule Dialysis catheter one of clamps is cracked ---> vascular surgery consulted - repaired 04/08 Also with anemia of chronic disease - hgb stable (3) Diabetes: Last A1c at 7.0% on 03/28/2024. Home medication: Lantus 10u Hs - continue at d/c BSG acceptable also with neuropathy -continue gabapentin (4) Hypotension: Patient was reportedly hypotensive during dialysis with SBP in the 90-100 range 99/57 in the ED - but improved since Will resume entresto for 04/07 Continue to hold torsemide Giving midodrine with HD (5) History of severe sepsis: Requiring ICU admission in 2021; secondary to diabetic foot wound/osteomyelitis MRSA infection 11/10/2021 Plan Chronic stable medical conditions: * CAD - continue statin * hypothyroid - continue Synthroid, recent TSH slightly elevated at 5 * Chronic pain - continue fentanyl patch, is on liquid morphine scheduled prior to dialysis and also as needed-would avoid morphine in the setting of renal failure but defer to primary care physician for ongoing treatment. Dispo: discharge back to [facility] today Family updated at bedside 04/05 Notes For Next Care Provider Medication Changes From Visit finish course of augmentin Admission HPI Per Admitting Provider Saida is a 74-year-old female with PMH of ESRD on HD (M/W/F), severe sepsis, bacteremia, GI bleed, hypothyroidism, aortic stenosis, PAD, AUDI, depression, CAD, and HTN. She presented from [facility] on 04/04 after patient became hypotensive and febrile during her dialysis session today. Patient reports she initially developed a fever/chills on Sunday 04/01, but then she felt better over the weekend. She has been taking Tylenol as send care of the weekend. Patient then developed chills/rigors/hypotension/fever during her dialysis session today, and she was given p.o. Tylenol and midodrine by staff prior to coming in. She believes she took some of her regular morning medicine today, but is unsure if she took all of them. She denies any sick contacts, but does report she has been around some sick people at [facility]. She denies cough/SOB/respiratory symptoms. She does have a history of UTIs, but reports she can usually tell when she has them and denies any burning with urination or lower back pain. She does have a history of right arm cellulitis a couple months ago, but believes this is improved. Patient has a line in her right chest wall for dialysis, but reports no erythema, drainage, or signs of infection. She denies smoking, tobacco use, recent alcohol use. Patient's vitals are stable at time of admission. ED course: Rocephin 2000 mg IV Morphine sulfate 4 mg IV Sodium chloride 250 mL IV ROS: Patient endorses fever, chills, body aches, and intermittent numbness/tingling in the arms or legs. Patient denies sweating, headache, photophobia, pain in the ears, sore throat, rashes, tick bites, chest pain, SOB, chest palpitations, cough, abdominal pain, N/V/D, new lower back pain, burning with urination, or blood in the urine/stool. Spoke on the phone with patient's sister (Romina) and provided update regarding labs/imaging/admission status. Discharge Exam General: NAD, VS as above, lying in bed, appears well Resp: normal respiratory effort, lungs clear to auscultation CV: RRR, + murmur, Abd: soft non tender, no RUQ tenderness. Extremities: Moves all extremities Discharge Plan Discharge Items Patient Disposition: Transfer Longterm Fac Reason For Visit: CHILLS/RIGORS Discharge Diagnosis: suspected infection - source unclear, possibly dental Activity: Resume your previous activity Non-emergency contact: Primary Care Provider Call non-emergency contact if: you have any medication questions, your symptoms worsen and your temperature is above 101 Follow-up/Referrals: Florencio Osborn III, MD [Primary Care Provider] - Diet: Carb Consistent or DM2 and Dialysis Renal Addtl Attending Provider Instructions: Ms. Manriquez, You were hospitalized after fevers, chills and rigors at home. There was concern for infection - unfortunately we were not able to find a definitive source, but most likely is dental infection. Thankfully none of your cultures have turned positive and you have responded well to antibiotics. You will be discharged on oral Augmentin for 5 additional days. Blood cultures negative a 48 hours on discharge No other changes to home medications. Take care! Pending Studies at Discharge: Yes (blood culture ) Stand-Alone Forms: My [facility] Skilled Items Patient informed of condition?: Yes DNR: Yes Discharge Level of Care: Other Communicable Disease: No Discharge Prognosis: Stable Lines: None Urinary Catheter: No Medications and DC Order Prescriptions: New amoxicillin-pot clavulanate 500-125 mg Tablet 1 tab PO BIDM 5 Days Qty: 10 0RF Continued multivitamin Tablet 1 tab PO HS sennosides-docusate sodium [Senokot-S] 8.6-50 mg Tablet 1 tab-cap PO BID polyethylene glycol 3350 [Miralax] 17 gram/dose Powder 17 g PO BID cholecalciferol (vitamin D3) [Vitamin D3] 125 mcg (5,000 unit) Tablet 125 mcg PO HS bisacodyl [Dulcolax (bisacodyl)] 10 mg Suppository 10 mg WV DAILY PRN (Reason: Constipation) Rx Instructions: GIVE DAY 3 IF NO BM FOLLOWING MOM Fleet Enema 19-7 gram/118 mL Enema 118 ml WV UD PRN (Reason: Constipation) Rx Instructions: IF NO BM FOLLOWING DULCOLAX calcium acetate(phosphat bind) 667 mg Tablet 667 mg PO DAILY PRN (Reason: Snacks) Rx Instructions: Give 1 tablet (667mg) by mouth as needed with snacks atorvastatin 80 mg tablet 80 mg PO HS acetaminophen [Tylenol] 325 mg Tablet 650 mg PO Q6 MDD 3gmAPAP/24hr PRN (Reason: Fever Or Pain) Rx Instructions: GIVE FOR TEMP >100, PAIN 1-10 pantoprazole 40 mg tablet,delayed release (DR/EC) 40 mg PO BID gabapentin 100 mg capsule 100 mg PO TID insulin lispro [Humalog U-100 Insulin] 100 unit/mL solution See Rx Instructions .ROUTE .COMPLEX Qty: 10 0RF Rx Instructions: INJECT PER SLIDING SCALE: 150-200=2 units, 201-250=4 units, 250- 300=8UNITS, 301-350=12UNITS, 351-400 = 16 units, 401-1000 = 18 units then recheck in 1 hour. Report CSG's <70 or >401 to MD/MANAGER [employer]IAL SERVICES insulin glargine [Lantus U-100 Insulin] 100 unit/mL solution 10 unit SUBCUT HS Velphoro 500 mg tablet,chewable 500 mg PO TIDWMEAL Rx Instructions: WITH MEALS EVERY THU, THU, FRI W/FIRST BITE OF FOOD fentanyl 50 mcg/hr Patch 72 Hour 1 patch TRANSDERMAL Q72H levothyroxine 175 mcg Tablet 175 mcg PO HS torsemide 20 mg tablet 120 mg PO 2XWK Rx Instructions: /Thu morphine concentrate 100 mg/5 mL (20 mg/mL) solution 10 mg PO Q4H PRN (Reason: Pain) morphine concentrate 100 mg/5 mL (20 mg/mL) solution 10 mg PO 3XWK Rx Instructions: Mon/Wed/Fri ondansetron HCl 4 mg tablet 4 mg PO Q6H PRN (Reason: Nausea And Vomiting) ondansetron HCl 4 mg tablet 4 mg PO 3XWK Rx Instructions: Mon/Wed/Fri vitamin B complex Tablet 1 tab PO HS midodrine 10 mg tablet 10 mg PO 3XWK Rx Instructions: Mon/Wed/Fri calcium acetate(phosphat bind) 667 mg Capsule 1,334 mg PO TIDWMEAL protein supplement Liquid 1 ea PO UD Rx Instructions: Take 30ml once daily on Thu/Thu/Thu and 30ml twice daily on //Thu/Sun diclofenac sodium 1 % Gel 2 g TOPICAL QID Velphoro 500 mg tablet,chewable 500 mg PO DAILY PRN (Reason: W/Snacks) sacubitril-valsartan [Entresto] 24-26 mg tablet 1 tab PO HS Artificial Tears (cmc) 1 % Drops 2 drp OPB BID Discharge Orders: Discharge Order (Routine); Ordered 04/09/24 Ordered By: Sil Cottrell Admission Data Admit Date/Time: 04/04/24 16:10 Attending Provider: Yariel Orona Admit Provider: Lalit Roberson Primary Care Provider: Florencio Osborn III Other Providers: Lalit Roberson; Gudelia Benedict; Inocencio Pablo Other Interventions: Discharge Summary Assessment (RN) Last Done: 04/09/24 09:44 Hospital Stay Data Consultations 04/04/24 13:57 ED Decision to Admit Stat 04/04/24 14:51 Consult Nephrology Routine 04/06/24 12:34 Consult Vascular Surgery Routine Procedures Performed Operation Date: 04/08/24 08:45 Actual Procedures p Perm Cath Repair - Inocencio Pablo MD Diagnostic Imagining Performed Chest X-Ray 04/04/24 12:15 XR chest 1V portable CLINICAL HISTORY: Sepsis. COMPARISON STUDY: Chest radiograph August 05, 2022. FINDINGS: Dual lumen right internal jugular central venous catheter remains in place. There is no pneumothorax or pleural effusion. There is no evidence for pulmonary edema or pneumonia. Cardiomegaly is unchanged. Linear bilateral densities favor atelectasis or scarring. IMPRESSION: No acute cardiopulmonary findings. No significant change in appearance of the chest. ACT 112: Negative or not required by law. Electronically signed by: Abram Pinon M.D. 04/04/2024 12:45 PM Lumbar Spine MRI 04/06/24 12:48 Clinical History: Lower back pain Technique: Sagittal and axial T1 and T2-weighted magnetic resonance images were obtained of the lumbar spine without gadolinium contrast. Findings: There is mild scoliosis. No listhesis is seen. There is interbody bony fusion at L4-5. No metallic instrumentation is seen. There are degenerative endplate changes at T10-11 and to a lesser extent at L3-L4 and L5-S1. No focal osseous lesion is evident. No fracture is identified. There is no definite sign of infection. There is no sign of acute ligamentous injury. The conus medullaris appears normal, terminating at the level of T12-L1. There is bilateral renal cortical atrophy At T10-11, seen on only the sagittal images, there is apparent spinal cord deformity due to a disc bulge. There is left greater than right neural foramen narrowing that may affect the left T10 nerve root At T11-12 and T12-L1, seen on only the sagittal images, there are disc bulges without spinal stenosis or definite nerve root compression At L1-L2, no pathology is seen At L2-L3, there is mild spinal stenosis due to a disc bulge and facet osteoarthritis. There is no apparent compression of the traversing nerve roots. There is mild bilateral neural foramen narrowing At L3-L4, there is severe spinal stenosis due to a disc bulge, a broad-based central disc protrusion, and facet osteoarthritis. There is compression of the traversing nerve roots. There is left greater than right neural foramen narrowing that may affect the left L3 nerve root At L4-L5, there is severe spinal stenosis due to a disc bulge, a broad-based central disc protrusion, and facet osteoarthritis. There is compression of the traversing nerve roots. There is left greater than right neural foramen narrowing that may affect the left L4 nerve root At L5-S1, there is severe spinal stenosis due to a disc bulge, a central disc protrusion, and facet osteoarthritis. There is compression of the traversing nerve roots. There is bilateral neural foramen narrowing that may affect the exiting L5 roots Impression: 1. Mild scoliosis 2. Spinal stenosis at T10-11 with apparent spinal cord deformity due to a disc bulge. This thoracic level was not fully evaluated on this lumbar spine study. 3. Severe spinal stenosis from L3-4 through L5-S1 with compression of the traversing nerve roots 4. Mild spinal stenosis at L2-3, without compression of the traversing nerve roots 5. Facet osteoarthritis from L2-3 through L5-S1 6. Left T10-11, left L3-4, left L4-5, and bilateral L5-S1 neural foramen narrowing. This may affect the exiting nerve roots Electronically signed by Layton Mansfield 04-06-2024 6:38 PM Pending Results Patient Have Any Pending Studies at Discharge: Yes (blood culture ) Discharge Instructions Given to Patient (Per Discharging Provider) Ms. Manriquez, You were hospitalized after fevers, chills and rigors at home. There was concern for infection - unfortunately we were not able to find a definitive source, but most likely is dental infection. Thankfully none of your cultures have turned positive and you have responded well to antibiotics. You will be discharged on oral Augmentin for 5 additional days. Blood cultures negative a 48 hours on discharge No other changes to home medications. Take care! Total Time Total Time Spent Total Time Spent (In Minutes): Time spent day of discharge 20 minutes including direct patient care, medication reconciliation, documentation, review of labs and images, and coordination of care. Coding Level of Care Code 02587 IN/OBS DISCH 30 MIN/LESS Diagnoses Fever R50.9 ESRD (end stage renal disease) on dialysis N18.6; Z99.2 Diabetes E11.9 Hypotension I95.9 History of severe sepsis Z86.19
[2024-04-09 09:45] VITALS: BP 130/70; PULSE 99
== END 2024-04-09 10:03 | DRG 157 ==
LOC: ED 12:04 → 2S 15:55 → SUATTDRO 16:10 → 2S 16:10

== ENCOUNTER 2024-05-03 12:36 | Inpatient (IN) ==
--- NOTE | 2024-05-03 12:40 | Emergency Department Note ---
Impression & Plan Acute hypoxemic respiratory failure, Parainfluenza type 1 infection, ESRD (end stage renal disease) on dialysis, Electrolyte abnormality, Acute dyspnea ED Provider Note NAME: SHANEL HARDY AGE: 74 SEX: F : 1950 ARRIVES VIA: Ambulance INFORMANT: [Patient][, ] EMS report/nursing report ED PROVIDER(S): [Gerry Doss MD] CHIEF COMPLAINT: Shortness of breath, influenza MEDICAL DECISION MAKING: Patient presents with the above after recently being seen. IV was established and blood work was obtained. VBG ordered. The patient was ordered Tamiflu. Patient was also ordered small amount of IV fluids 250cc bolus. Patient does have a known history of ESRD on dialysis. Patient was ordered levalbuterol levalbuterol treatment as well as IV steroids. I did review the patient's most recent ED visit note which showed that the patient had been treated with antibiotics and discharged on cefdinir and Doxy. Given these concerns I did order IV Zosyn procalcitonin and blood cultures and a lactate. Patient did receive small IV fluid bolus which was the 250. Patient's blood work shows a white count of 14 with hemoglobin 11.6. Platelet count is 126 borderline low. Patient's VBG does not show any evidence of hypercarbia. Sodium of 129. Creatinine is 3.73 but known history of ESRD last dialysis on Thursday. Mild hypomagnesemia and hypocalcemia. Deferred to inpatient team. Troponin of 30 although this has been elevated in the past. No active chest pain. Procalcitonin negative MRSA negative. BioFire negative. Upon reassessment the patient was feeling improved. The patient did have an episode of hypoxia to 83% after breathing treatments patient was placed on supplemental nasal cannula oxygen. Patient did tolerate this well. I did speak the on-call hospitalist service and the patient was admitted. Patient did have lower blood pressure at 90s over 70s. I did inform the inpatient service who was agreeable to additional IV fluids patient was ordered additional 250 bolus. Critical Care: I have personally spent 50 minutes of critical care time in direct management of this patient. This includes bedside care, interpretation of diagnostic studies, and testing, discussion with consultants, patient, and family members, and other require inpatient management activities. This 50 minutes is in excess of all separately billable procedures. Discussion w/ other healthcare providers: Sussy Singleton PA-C and Dr. Quiroz inpatient medicine service Prior /Outside records reviewed: I reviewed a recent ED note from April 29. Patient was diagnosed parainfluenza type I fever and bronchitis. Patient reportedly had blood cultures drawn at that time treated with IV Rocephin and oral Doxy and proceed with cefdinir and Doxy dosed for dialysis. I did review part of a discharge summary from April [facility], 2024 [facility] Patient was admitted for fever blood cultures negative. Did receive vancomycin and cefepime. Differential diagnosis: Reactive airway disease, pneumonia, pneumothorax, COPD, CHF, ACS, pulmonary embolism, musculoskeletal, GERD as well as other pathologies were considered. Diagnostics, as interpreted by me: ECG: Sinus tachycardia, rate of 116, normal intervals, normal axis, no obvious ST elevations T wave versions in the high lateral leads. Cardiac monitoring: An order was placed for continuous cardiac monitoring. The monitor shows a rate of 122 with tachycardic and regular rhythm. [Patient was placed on pulse oximetry] Medical decision rules: Curb 65 score Imaging studies: [I informally interpreted the patient's chest x-ray does show patchy infiltrates with formal report to follow.] [] HPI: Patient presents due to concern for worsening shortness of breath. Patient reportedly was recently seen here several days ago diagnosed with the flu and sent back to her care facility. The patient has had progressively worsening shortness of breath. The patient has had productive cough with yellow sputum. Patient denies any smoking history. Known history of ESRD on dialysis but does still make urine. The patient does follow with Dr. Ingram as recently had her dialysis session yesterday. She does have a permacath in the right chest. Patient denies any fevers or chills. The patient does have significant shortness of breath with activity/exertion but is even short of breath at rest. Patient denies any history of DVT or PE. No recent surgeries or procedures. The patient does have chronic right greater than left lower extremity swelling but this is unchanged. PAST MEDICAL HISTORY: [See Below] PAST SURGICAL HISTORY: [See Below] SOCIAL HISTORY: [See Below] HOME MEDICATIONS: [See Below] ALLERGIES: [See Below] VITALS: [See Below] PHYSICAL EXAMINATION: GENERAL: NAD, non-toxic. Wearing glasses as well as gloves. EYE EXAM: Normal conjunctiva. PERRL, no anisocoria and EOM's grossly intact w/o pain. OROPHARYNX: Dry mucus membranes, grossly normal dentition. NECK: Trachea midline, no stridor. [Supple, no nuchal rigidity, no adenopathy, non-tender. No signs of meningismus. FROM of the neck with good chin to chest and neck extension.] Chest: Right sided permacatheter noted. LUNGS: Coarse sounds throughout with associated wheezes. Normal chest wall mechanics. HEART: Tachycardic and regular, no MRG. ABDOMEN: Abdomen soft, non-tender, no masses, no rebound or guarding. BACK: No CVA TTP. SKIN: No rashes and no bruising. UPPER EXTREMITIES: Upper extremities are grossly normal. LOWER EXTREMITIES: Grossly normal, right greater than left lower extremity edema with venous stasis changes. NEURO EXAM: A&O x3, cranial nerves II-XII grossly intact, normal speech, moves all 4 extremities. Past Med/Surg History Problem List (Updated 05/03/24 @ 19:01 by Gerry Doss MD) Acute dyspnea (Acute) Electrolyte abnormality (Acute) ESRD (end stage renal disease) on dialysis (Acute) Parainfluenza type 1 infection (Acute) Acute hypoxemic respiratory failure (Acute) Acute diarrhea Elevated troponin Hyperglycemia due to type 2 diabetes mellitus Hypotension ESRD (end stage renal disease) on dialysis M[facility]F [facility] Fever (Acute) Bronchitis (Acute) Parainfluenza type 1 infection (Acute) Septic shock Chronic kidney disease requiring chronic dialysis (Acute) AMS (altered mental status) (Acute) Leukocytosis (Acute) Hypoxia (Acute) Admitted to intensive care unit Severe sepsis Acute osteomyelitis of right calcaneus Discitis of thoracic region Bacteremia Acute metabolic encephalopathy Abdominal pain Coagulopathy History of GI bleed Candidiasis of mouth and esophagus Hyperglycemia Cellulitis (Acute) Diabetic foot ulcer (Acute) RSV (acute bronchiolitis due to respiratory syncytial virus) (Acute) Hypothyroidism Hypoxia (Acute) Encounter for pre-operative examination PAD (peripheral artery disease) Moderate per vascular records Ischemic cardiomyopathy EF 30-35% per 08/2021 ECHO Chronic respiratory failure with hypoxia Only uses supplemental oxygen when sick- no oxygen needed at this point Anemia in chronic renal disease Hypothyroidism Obstructive sleep apnea No device Obesity Diabetic peripheral neuropathy Bilateral hands and feet Hypertension Depression Medical History Anemia of chronic disease History of severe sepsis Diabetes Hgb A1C 7.3 on 05/20/22 ESRD (end stage renal disease) on dialysis M,W,F at [facility] via permacath Aortic stenosis Moderate to severe per 08/2021 ECHO Coronary artery disease Denies stents or bypass Per cardio records - likely had prior LAD infarct (pt unaware of when); no ASA due to prior GI bleed Generalized weakness Shingles back-left flank onset 06/26/22 Diabetic ulcer of both feet 11/2021 Stable currently- had debridement 11/2021- wears Unna boots [facility] Encounter for removal of vascular catheter 08/2021 - Dr Inocencio Pablo (HD catheter) History of gastrointestinal bleeding 06/2021 No recent issues History of CVA (cerebrovascular accident) Several strokes ("many years since last stroke") Surgical History S/P arteriovenous (AV) graft placement 07/2022, [facility] History of open reduction and internal fixation (ORIF) procedure [place] 08[place]06[place] [facility] [place] surgery 08/2021 - right calcaneal resection 2nd to osteomyelitis - Dr Dick Naqvi Family History Other No pertinent family history Social History Smoking Status: Never smoker Hx Alcohol Use: No Hx Substance Use: No Preferred Language: Belgian Communication Ability: Effective Supervisor Nut Processing Required: No Beliefs That Will Affect Care: None Current Living Situation: Residential Current Living Situation Comment: [facility] Feels Safe at Home: Yes Assistive Devices: Wheelchair Allergies Allergies Allergy/AdvReac Type Severity Reaction Status Date / Time cyclobenzaprine Allergy Unknown Woozy Verified 05/03/24 17:18 [From Flexeril] Home Meds Home Medications Medication Instructions Recorded Confirmed acetaminophen 325 mg tablet 650 mg PO Q6 PRN Fever 11/06/21 05/03/24 (Tylenol) atorvastatin 80 mg tablet 80 mg PO HS 11/06/21 05/03/24 gabapentin 100 mg capsule 100 mg PO TID 11/06/21 05/03/24 pantoprazole 40 mg tablet,delayed 40 mg PO BID 11/06/21 05/03/24 release insulin glargine 100 unit/mL 10 unit subcut HS 04/11/22 05/03/24 subcutaneous solution (Lantus U-100 Insulin) sucroferric oxyhydroxide 500 mg 500 mg PO TIDWMEAL 04/11/22 05/03/24 chewable tablet (Velphoro) bisacodyl 10 mg rectal suppository 10 mg AL DAILY PRN Constipation 08/27/22 05/03/24 (Dulcolax (bisacodyl)) cholecalciferol (vitamin D3) 125 125 mcg PO HS 08/27/22 05/03/24 mcg (5,000 unit) tablet (Vitamin D3) multivitamin 1 tab PO HS 08/27/22 05/03/24 polyethylene glycol 3350 17 17 g PO BID 08/27/22 05/03/24 gram/dose oral powder (Miralax) sennosides 8.6 mg-docusate sodium 1 tab-cap PO BID 08/27/22 05/03/24 50 mg tablet (Senokot-S) sodium phosphates 19 gram-7 118 ml AL UD PRN Constipation 08/27/22 05/03/24 gram/118 mL enema (Fleet Enema) calcium acetate(phosphat bind) 667 667 mg PO DAILY PRN Snacks 09/19/22 05/03/24 mg tablet calcium acetate(phosphat bind) 667 1,334 mg PO TIDWMEAL 04/04/24 05/03/24 mg capsule carboxymethylcellulose sodium 1 % 2 drp OPB BID 04/04/24 05/03/24 eye drops (Artificial Tears (carboxymethylcellulose)) diclofenac sodium 1 % topical gel 2 g topical QID b/l hand pain 04/04/24 05/03/24 levothyroxine 175 mcg tablet 175 mcg PO HS 04/04/24 05/03/24 midodrine 10 mg tablet 10 mg PO 3XWK 04/04/24 05/03/24 morphine concentrate 100 mg/5 mL 10 mg PO 3XWK 04/04/24 05/03/24 (20 mg/mL) oral solution morphine concentrate 100 mg/5 mL 10 mg PO Q4H PRN Pain 04/04/24 05/03/24 (20 mg/mL) oral solution ondansetron HCl 4 mg tablet 4 mg PO 3XWK 04/04/24 05/03/24 ondansetron HCl 4 mg tablet 4 mg PO Q6H PRN Nausea And Vomiting 04/04/24 05/03/24 protein supplement 1 ea PO UD 04/04/24 05/03/24 sacubitril 24 mg-valsartan 26 mg 1 tab PO QPM 04/04/24 05/03/24 tablet (Entresto) sucroferric oxyhydroxide 500 mg 500 mg PO DAILY PRN W/Snacks 04/04/24 05/03/24 chewable tablet (Velphoro) torsemide 20 mg tablet 120 mg PO 2XWK 04/04/24 05/03/24 vitamin B complex 1 tab PO HS 04/04/24 05/03/24 Saccharomyces boulardii 250 mg 250 mg PO BID 05/03/24 05/03/24 capsule (Florastor) bacitracin 500 unit/gram topical 1 applic topical DAILY 05/03/24 05/03/24 packet colestipol 1 gram tablet 2 g PO TID 05/03/24 05/03/24 fentanyl 50 mcg/hr transdermal 50 mcg topical Q72H 05/03/24 05/03/24 patch insulin lispro 100 unit/mL See Rx Instructions .Route .COMPLEX 05/03/24 05/03/24 subcutaneous solution (Humalog U-100 Insulin) ipratropium 0.5 mg-albuterol 3 mg 3 ml inhalation Q2H PRN Shortness 05/03/24 05/03/24 (2.5 mg base)/3 mL nebulization Of Breath Or Wheezing soln ipratropium 0.5 mg-albuterol 3 mg 3 ml inhalation QID 05/03/24 05/03/24 (2.5 mg base)/3 mL nebulization soln prednisone 10 mg tablet 10 mg PO QAM 05/03/24 05/03/24 prednisone 10 mg tablet 30 mg PO QAM 05/03/24 05/03/24 prednisone 20 mg tablet 20 mg PO QAM 05/03/24 05/03/24 prednisone 20 mg tablet 40 mg PO QAM 05/03/24 05/03/24 Previous Rx's Medication Instructions Recorded cefdinir 300 mg capsule 300 mg PO .MWF 7 days #4 caps 04/28/24 doxycycline hyclate 100 mg tablet 100 mg PO BID 7 days #14 tabs 04/28/24 Results & Data (ED) Vital Signs Vital Signs - 24 hr 05/03/24 12:26 05/03/24 12:40 05/03/24 12:40 Temperature 36.6 C Temperature Source Temporal Artery Scan Pulse Rate 119 H Pulse Rate [Left Finger] Respiratory Rate 18 16 Blood Pressure 130/84 Blood Pressure [Left Arm] Blood Pressure Mean 99 Blood Pressure Mean [Left Arm] Pulse Oximetry 92 Oxygen Delivery Method Room Air Sepsis Recent Fever Within 48 Hours No Sepsis New/Unexplained Change in Mental Status N/A Sepsis Action Taken by Nursing No Action Required Oxygen Flow Rate - Titration Pulse Oximetry Post Tiitration 05/03/24 12:51 05/03/24 14:32 05/03/24 15:06 Temperature Temperature Source Pulse Rate 118 H Pulse Rate [Left Finger] 114 H Respiratory Rate 16 Blood Pressure Blood Pressure [Left Arm] 82/58 L Blood Pressure Mean Blood Pressure Mean [Left Arm] 66 Pulse Oximetry 96 83 L Oxygen Delivery Method Room Air Sepsis Recent Fever Within 48 Hours Sepsis New/Unexplained Change in Mental Status Sepsis Action Taken by Nursing Oxygen Flow Rate - Titration 3 Pulse Oximetry Post Tiitration 96 Home Medications Current Medication List: was personally reviewed by me Laboratory Data Attestation: I reviewed the patient's lab results. 05/03/24 13:10 05/03/24 13:10 Lab Results 05/03/24 05/03/24 05/03/24 Range/Units 13:10 13:21 13:38 WBC 14.50 H (4.8-10.8) K/ul RBC 3.67 L (4.20-5.40) M/uL Hgb 11.6 L (12.0-16.0) g/dl Hct 35.1 L (37.0-47.0) % MCV 95.6 (80.0-100.0) fL MCH 31.6 (25.0-34.0) pg MCHC 33.0 (32.0-36.0) g/dL RDW Std Deviation 49.8 H (36.4-46.3) fL RDW Coeff of Juno 14.5 (11.5-14.5) % Plt Count 126 L (130-400) K/uL MPV 11.7 (9.4-12.4) fL Immature Gran % (Auto) 0.9 % Neut % (Auto) 92.6 % Lymph % (Auto) 3.5 % [place] % (Auto) 2.8 % Eos % (Auto) 0.1 % Baso % (Auto) 0.1 % Neut # (Auto) 13.43 H (1.40-6.50) K/uL Lymph # (Auto) 0.51 L (1.20-3.40) K/uL [place] # (Auto) 0.40 (0.11-0.59) K/uL Eos # (Auto) 0.01 (0.00-0.50) K/uL Baso # (Auto) 0.02 (0.00-0.20) K/uL Immature Gran # (Auto) 0.13 (0.01-0.20) K/uL Platelet Estimate Normal (Normal) PT 14.1 H (9.0-12.0) Seconds INR 1.3 H (0.9-1.1) APTT 23 (21-31) Seconds PTT Ratio 0.9 VBG pH 7.38 (7.36-7.41) VBG pCO2 48 (38-50) mmHg VBG pO2 37 mmHg VBG HCO3 28 mmol/L VBG O2 Saturation < 60.0 % VBG Base Excess 2.6 mEq/L Sodium 129 L (136-145) mmol/L Potassium 3.5 (3.5-5.1) mmol/L Chloride 91 L (98-107) mmol/L Carbon Dioxide 26 (21-32) mmol/L Anion Gap 12 H (3-11) BUN 43 H (6-23) mg/dl Creatinine 3.73 H (0.6-1.2) mg/dl Est Cr Clr Drug Dosing 14.7 ml/min eGFR 12.26 BUN/Creatinine Ratio 11.5 (10-20) Glucose 368 H* (70-99(Fasting)) mg/dl Calcium 8.2 L (8.6-10.3) mg/dl Magnesium 1.6 L (1.7-2.4) mg/dl Total Bilirubin 0.8 (0.2-1.0) mg/dl AST 46 H (13-39) U/L ALT 34 (7-52) U/L Alkaline Phosphatase 94 (34-104) U/L Troponin I High Sens 30.3 H (0-14) pg/ml Total Protein 6.6 (6.0-8.3) gm/dl Albumin 3.3 L (3.4-5.0) gm/dl Globulin 3.3 (2.5-4.0) gm/dl Albumin/Globulin Ratio 1.0 (0.9-2) Procalcitonin 0.27 (0-0.5) ng/ml Nasal Screen MRSA (PCR) Negative (Negative) Adenovirus (PCR) Not Detected (NotDetected) B. pertussis DNA (PCR) Not Detected (NotDetected) B.parapertussis DNA PCR Not Detected (NotDetected) C. pneumoniae DNA (PCR) Not Detected (NotDetected) Coronavirus OC43 (PCR) Not Detected (NotDetected) Coronavirus HKU1 (PCR) Not Detected (NotDetected) Coronavirus 229E (PCR) Not Detected (NotDetected) SARS-CoV-2 (PCR) Not Detected (NotDetected) Coronavirus NL63 (PCR) Not Detected (NotDetected) Human Metapneumovir PCR Not Detected (NotDetected) Influenza Type A (PCR) Not Detected (NotDetected) Influenza Type B (PCR) Not Detected (NotDetected) M. pneumoniae (PCR) Not Detected (NotDetected) Parainfluenza 1 (PCR) Not Detected (NotDetected) Parainfluenza 2 (PCR) Not Detected (NotDetected) Parainfluenza 3 (PCR) Not Detected (NotDetected) Parainfluenza 4 (PCR) Not Detected (NotDetected) RSV (PCR) Not Detected (NotDetected) Entero/Rhino (PCR) Not Detected (NotDetected) 05/03/24 Range/Units 15:06 WBC (4.8-10.8) K/ul RBC (4.20-5.40) M/uL Hgb (12.0-16.0) g/dl Hct (37.0-47.0) % MCV (80.0-100.0) fL MCH (25.0-34.0) pg MCHC (32.0-36.0) g/dL RDW Std Deviation (36.4-46.3) fL RDW Coeff of Juno (11.5-14.5) % Plt Count (130-400) K/uL MPV (9.4-12.4) fL Immature Gran % (Auto) % Neut % (Auto) % Lymph % (Auto) % [place] % (Auto) % Eos % (Auto) % Baso % (Auto) % Neut # (Auto) (1.40-6.50) K/uL Lymph # (Auto) (1.20-3.40) K/uL [place] # (Auto) (0.11-0.59) K/uL Eos # (Auto) (0.00-0.50) K/uL Baso # (Auto) (0.00-0.20) K/uL Immature Gran # (Auto) (0.01-0.20) K/uL Platelet Estimate (Normal) PT (9.0-12.0) Seconds INR (0.9-1.1) APTT (21-31) Seconds PTT Ratio VBG pH (7.36-7.41) VBG pCO2 (38-50) mmHg VBG pO2 mmHg VBG HCO3 mmol/L VBG O2 Saturation % VBG Base Excess mEq/L Sodium (136-145) mmol/L Potassium (3.5-5.1) mmol/L Chloride (98-107) mmol/L Carbon Dioxide (21-32) mmol/L Anion Gap (3-11) BUN (6-23) mg/dl Creatinine (0.6-1.2) mg/dl Est Cr Clr Drug Dosing ml/min eGFR BUN/Creatinine Ratio (10-20) Glucose (70-99(Fasting)) mg/dl Calcium (8.6-10.3) mg/dl Magnesium (1.7-2.4) mg/dl Total Bilirubin (0.2-1.0) mg/dl AST (13-39) U/L ALT (7-52) U/L Alkaline Phosphatase (34-104) U/L Troponin I High Sens 26.2 H (0-14) pg/ml Total Protein (6.0-8.3) gm/dl Albumin (3.4-5.0) gm/dl Globulin (2.5-4.0) gm/dl Albumin/Globulin Ratio (0.9-2) Procalcitonin (0-0.5) ng/ml Nasal Screen MRSA (PCR) (Negative) Adenovirus (PCR) (NotDetected) B. pertussis DNA (PCR) (NotDetected) B.parapertussis DNA PCR (NotDetected) C. pneumoniae DNA (PCR) (NotDetected) Coronavirus OC43 (PCR) (NotDetected) Coronavirus HKU1 (PCR) (NotDetected) Coronavirus 229E (PCR) (NotDetected) SARS-CoV-2 (PCR) (NotDetected) Coronavirus NL63 (PCR) (NotDetected) Human Metapneumovir PCR (NotDetected) Influenza Type A (PCR) (NotDetected) Influenza Type B (PCR) (NotDetected) M. pneumoniae (PCR) (NotDetected) Parainfluenza 1 (PCR) (NotDetected) Parainfluenza 2 (PCR) (NotDetected) Parainfluenza 3 (PCR) (NotDetected) Parainfluenza 4 (PCR) (NotDetected) RSV (PCR) (NotDetected) Entero/Rhino (PCR) (NotDetected) Administered Medications Discontinued Medications Sodium Chloride (Nss) 250 mls @ 999 mls/hr IV .Q16M ONE Stop: 05/03/24 13:07 Last Infusion: 05/03/24 16:06 Dose: Infused Documented By: Admin: 05/03/24 13:39 Dose: 999 mls/hr Documented By: MELANIE Piperacillin Sod/Tazobactam Sod (Zosyn) 4.5 gm in 100 mls @ 200 mls/hr IV NOW ONE; Protocol Stop: 05/03/24 13:23 Last Infusion: 05/03/24 16:07 Dose: Infused Documented By: Admin: 05/03/24 13:42 Dose: 200 mls/hr Documented By: MELANIE Sodium Chloride (Nss) 250 mls @ 999 mls/hr IV .Q16M ONE Stop: 05/03/24 15:36 Last Infusion: 05/03/24 15:48 Dose: Infused Documented By: Admin: 05/03/24 15:32 Dose: 999 mls/hr Documented By: CHEVY Magnesium Sulfate/Dextrose (Magnesium Sulfate / D5w) 1 gm in 100 mls @ 50 mls/hr IV ONE ONE Stop: 05/03/24 17:34 Last Infusion: 05/03/24 17:51 Dose: Infused Documented By: Admin: 05/03/24 15:51 Dose: 50 mls/hr Documented By: WENDY Levalbuterol HCl (Levalbuterol 1.25 Mg/3 Ml Neb) 4.75 mg NEB NOW STA Stop: 05/03/24 12:46 Last Admin: 05/03/24 13:10 Dose: 4.75 mg Documented By: CHEVY Methylprednisolone (Methylprednisolone 125 Mg/2 Ml Vial) 125 mg IV NOW STA Stop: 05/03/24 12:46 Last Admin: 05/03/24 13:39 Dose: 125 mg Documented By: MELANIE Oseltamivir Phosphate (Oseltamivir Phosphate Susp 30 Mg/5 Ml Udp) 30 mg PO NOW STA; Protocol Stop: 05/03/24 12:52 Last Admin: 05/03/24 13:07 Dose: Not Given Documented By: CHEVY Imaging Data Radiologist's Impression: Chest X-Ray 05/03/24 12:45 XR chest 1V portable CLINICAL HISTORY: Dyspnea. COMPARISON STUDY: Chest radiograph April 28, 2024. FINDINGS: Dual lumen right internal jugular central venous catheter remains in place. Cardiomegaly is unchanged. Mediastinal contours are stable. Linear left perihilar opacities are present. Pulmonary vascular congestion. There is no pneumothorax or pleural effusion. There is no consolidation to suggest pneumonia. IMPRESSION: 1. Cardiomegaly with pulmonary vascular congestion. 2. Linear left midlung opacities which favor atelectasis. ACT 112: Negative or not required by law. Electronically signed by: Abram Pinon M.D. 05/03/2024 2:03 PM Discharge Plan Visit Data Chief Complaint: Shortness of Breath/Dyspnea Stated Complaint: SOB ED Provider: Gerry Doss Discharge Problem: Acute hypoxemic respiratory failure, Parainfluenza type 1 infection, ESRD (end stage renal disease) on dialysis, Electrolyte abnormality, Acute dyspnea Patient Disposition: Admitted As Inpatient Discharge Instructions Interventions: ED Discharge Assessment Last Done: 05/03/24 18:20
[2024-05-03] MEDS: OSELTAMIVIR PHOSPHATE SUSP 30 MG/5 ML UDP PO STA (13:07)
[2024-05-03] MEDS: LEVALBUTEROL 1.25 MG/3 ML NEB NEB STA (13:10)
[2024-05-03] MEDS: methylPREDNISolone 125 MG/2 ML VIAL IV STA (13:39)
[2024-05-03] MEDS: SODIUM CHLORIDE 0.9% 250 ML IV ONE ×2 (13:39→15:32)
[2024-05-03] MEDS: PIPERACILLIN/TAZOBACTAM 4.5 GM/100 ML BAG IV ONE (13:42)
[2024-05-03 13:48] LABS: Base Excess VBG 2.6 mEq/L; HCO3 VBG 28 mmol/L; Oxygen Saturation VBG < 60.0 %; PCO2 VBG 48 mmHg (38-50); PO2 VBG 37 mmHg; pH VBG 7.38 (7.36-7.41)
[2024-05-03 13:55] LABS: Hematocrit (blood only) 35.1 % (37.0-47.0); Hemoglobin 11.6 g/dl (12.0-16.0); Mean Corpuscular Hemoglobin 31.6 pg (25.0-34.0); Mean Corpuscular Volume 95.6 fL (80.0-100.0); RDW Coefficient of Variation 14.5 % (11.5-14.5); RDW Standard Deviation 49.8 fL (36.4-46.3); Red Blood Count 3.67 M/uL (4.20-5.40)
[2024-05-03 14:02] LABS: Mean Platelet Volume 11.7 fL (9.4-12.4); Platelet Count 126 K/uL (130-400)
[2024-05-03 14:03] LABS: Basophils # (auto) 0.02 K/uL (0.00-0.20); Basophils % (auto) 0.1 %; Eosinophils # (auto) 0.01 K/uL (0.00-0.50); Eosinophils % (auto) 0.1 %; Immature Granulocytes # (auto) 0.13 K/uL (0.01-0.20); Immature Granulocytes % (auto) 0.9 %; Lymphocytes # (auto) 0.51 K/uL (1.20-3.40); Lymphocytes % (auto) 3.5 %; Monocytes % (auto) 2.8 %; Neutrophils # (auto) 13.43 K/uL (1.40-6.50); Neutrophils % (auto) 92.6 %; Platelet Estimate Normal (Normal)
--- NOTE | 2024-05-03 14:04 | XRay Report ---
XR chest 1V portable CLINICAL HISTORY: Dyspnea. COMPARISON STUDY: Chest radiograph April 28, 2024. FINDINGS: Dual lumen right internal jugular central venous catheter remains in place. Cardiomegaly is unchanged. Mediastinal contours are stable. Linear left perihilar opacities are present. Pulmonary v ascular congestion. There is no pneumothorax or pleural effusion. There is no consolidation to sugges t pneumonia. IMPRESSION: 1. Cardiomegaly with pulmonary vascular congestion. 2. Linear left midlung opacities which favor atelectasis. ACT 112: Negative or not required by law. Electronically signed by: Abram Pinon M.D. 05/03/2024 2:03 PM
[2024-05-03 14:05] LABS: Albumin Level 3.3 gm/dl (3.4-5.0); BUN Creatinine Ratio 11.5 (10-20); Bilirubin,Total 0.8 mg/dl (0.2-1.0); Calcium 8.2 mg/dl (8.6-10.3); Creatinine Clr Calc Pharmacy 14.7 ml/min; Globulin 3.3 gm/dl (2.5-4.0); Magnesium 1.6 mg/dl (1.7-2.4); Potassium 3.5 mmol/L (3.5-5.1); Total Protein 6.6 gm/dl (6.0-8.3)
[2024-05-03 14:08] LABS: Troponin I High Sensitivity 30.3 pg/ml (0-14)
[2024-05-03 14:13] LABS: INR 1.3 (0.9-1.1); Partial Thromboplastin Ratio 0.9; Partial Thromboplastin Time 23 Seconds (21-31); Prothrombin Time 14.1 Seconds (9.0-12.0)
--- NOTE | 2024-05-03 14:28 | History & Physical Report ---
Date of Service May 03, 2024 Assessment & Plan (1) Parainfluenza type 1 infection: Plan: tested positive 04/28 when seen in ED + procal 0.59 -> dc on Cefdinir, doxycycline, prednisone 60 Mg blood cultures from 04/28 showed no growth CXR shows cardiomegaly with pulmonary vascular congestion, linear mid lung opacities which favor atelectasis - relatively unchanged from CXR 04/28 Pro-Tez negative Leukocytosis (WBC 14.50) with neutrophil predominance tachycardia 118 afebrile and non-hypoxic on admission discontinue Zosyn as does not appear to be pneumonia at this time scheduled DuoNebs Solu-Medrol 40 BID to begin this evening Tessalon perle Flutter valve and incentive spirometry promote oral hydration ordered lactate follow blood cultures Can consider repeat imaging of chest if symptoms do not resolve in a few days (2) Hypotension: Plan: questionable; BP increases when blood pressure cuff relocated although multiple noted episodes of low BP with SBP in 90s 500mL NSS -> BP up to 117/72 - defer further IV hydration with ESRD Promote oral hydration lactate and UA ordered hold torsemide and Entresto Midodrine before dialysis (3) ESRD (end stage renal disease) on dialysis: Plan[facility]; consulted Dialysis MWF renal function at baseline Continue Velphoro Midodrine and morphine before dialysis (4) Hyperglycemia due to type 2 diabetes mellitus: Plan: Controlled on lantus 10 U HS and SSI at home Most recent A1C 7.0 hyperglycemic on admission to ED, 368; likely secondary to recent steroid use double home lantus to 10 u BID due to steroid use SSI with target BSG range 110-140mg/dL, CF 40, carb ratio 12 neuropathy - continue gabapentin pseudohyponatremia - corrected sodium 135 (5) Elevated troponin: Plan: 30.3 likely secondary to ESRD, chronically elevated EKG showing sinus tachycardia, no ischemic changes denies cp trend trop monitor on tele (6) Acute diarrhea: Plan: x 3 weeks with recent antibiotic use stool cultures ordered promote oral hydration hypomagnesemia 1.6; IV repletion on admission Plan Chronic stable diagnoses: CAD - continue statin hypothyroidism - continue levothyroxine chronic pain - continue morphine, has fentanyl patch (applied 05/02) however no longer wants to use, will discontinue VTE ppx: SCDs and TEDs; defer chemical ppx due to low platelets Diet: T2DM and dialysis diet Dispo: PCU with risk of decline with vital signs Admission and Anticipated Discharge Date Admission Date: 05/03/24 History of Present Illness Chief Complaint: dyspnea Primary Care Provider: Florencio Osborn III, Patient is a 74-year-old female past medical history of ESRD on hemodialysis MWF, type II DM on insulin, neuropathy, history of severe sepsis in 2021 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 She presents today due to ongoing symptoms of dyspnea at rest, cough, yellow sputum production, rhinorrhea, body aches, chills for 1 week. She has also had diarrhea for the past 3 weeks. She was recently discharged from the hospital 04/09 due to fever of unknown origin, she was treated with cefepime and Vanco which was then transitioned to oral Augmentin on discharge. She presented back to the ER 04/28 due to the flulike symptoms in which she tested positive for parainfluenza virus. She had a mildly elevated procalcitonin at this time and blood cultures were drawn. [facility] with cefdinir and doxycycline x7 days, Along with a 4-day course of 60 mg prednisone. She presented back to the ER today due to ongoing symptoms. She has been taking her antibiotics and steroid as scheduled. Her diarrhea has mildly improved but she still is multiple episodes a day. She also had dialysis yesterday. She follows with Dr. Ingram, [facility] nephrology. Patient denies headache, dizziness, lightheadedness, chest pain, abdominal pain, nausea, vomiting, edema, numbness, tingling. She have a history of hypotensive session during dialysis; she was receiving midodrine during hemodialysis during recent admission while holding torsemide. she does not use nicotine or drink alcohol. She denies past history of CA or VTE. She does not use oxygen at baseline. She took her home medications this morning. She is on 10 units Lantus at bedtime for diabetes along with sliding scale insulin that is managed by [facility]. She wishes to be DNR/DNI. Allergies Allergy/AdvReac Type Severity Reaction Status Date / Time cyclobenzaprine Allergy Unknown Woozy Verified 05/03/24 17:18 [From Flexeril] Home Medications Medication Instructions Recorded Confirmed Type acetaminophen 325 mg tablet 650 mg PO Q6 PRN Fever 11/06/21 05/03/24 History (Tylenol) atorvastatin 80 mg tablet 80 mg PO HS 11/06/21 05/03/24 History gabapentin 100 mg capsule 100 mg PO TID 11/06/21 05/03/24 History pantoprazole 40 mg tablet,delayed 40 mg PO BID 11/06/21 05/03/24 History release insulin glargine 100 unit/mL 10 unit subcut HS 04/11/22 05/03/24 History subcutaneous solution (Lantus U-100 Insulin) sucroferric oxyhydroxide 500 mg 500 mg PO TIDWMEAL 04/11/22 05/03/24 History chewable tablet (Velphoro) bisacodyl 10 mg rectal suppository 10 mg VT DAILY PRN Constipation 08/27/22 05/03/24 History (Dulcolax (bisacodyl)) cholecalciferol (vitamin D3) 125 125 mcg PO HS 08/27/22 05/03/24 History mcg (5,000 unit) tablet (Vitamin D3) multivitamin 1 tab PO HS 08/27/22 05/03/24 History polyethylene glycol 3350 17 17 g PO BID 08/27/22 05/03/24 History gram/dose oral powder (Miralax) sennosides 8.6 mg-docusate sodium 1 tab-cap PO BID 08/27/22 05/03/24 History 50 mg tablet (Senokot-S) sodium phosphates 19 gram-7 118 ml VT UD PRN Constipation 08/27/22 05/03/24 History gram/118 mL enema (Fleet Enema) calcium acetate(phosphat bind) 667 667 mg PO DAILY PRN Snacks 09/19/22 05/03/24 History mg tablet calcium acetate(phosphat bind) 667 1,334 mg PO TIDWMEAL 04/04/24 05/03/24 History mg capsule carboxymethylcellulose sodium 1 % 2 drp OPB BID 04/04/24 05/03/24 History eye drops (Artificial Tears (carboxymethylcellulose)) diclofenac sodium 1 % topical gel 2 g topical QID b/l hand pain 04/04/24 05/03/24 History levothyroxine 175 mcg tablet 175 mcg PO HS 04/04/24 05/03/24 History midodrine 10 mg tablet 10 mg PO 3XWK 04/04/24 05/03/24 History morphine concentrate 100 mg/5 mL 10 mg PO 3XWK 04/04/24 05/03/24 History (20 mg/mL) oral solution morphine concentrate 100 mg/5 mL 10 mg PO Q4H PRN Pain 04/04/24 05/03/24 History (20 mg/mL) oral solution ondansetron HCl 4 mg tablet 4 mg PO 3XWK 04/04/24 05/03/24 History ondansetron HCl 4 mg tablet 4 mg PO Q6H PRN Nausea And Vomiting 04/04/24 05/03/24 History protein supplement 1 ea PO UD 04/04/24 05/03/24 History sacubitril 24 mg-valsartan 26 mg 1 tab PO QPM 04/04/24 05/03/24 History tablet (Entresto) sucroferric oxyhydroxide 500 mg 500 mg PO DAILY PRN W/Snacks 04/04/24 05/03/24 History chewable tablet (Velphoro) torsemide 20 mg tablet 120 mg PO 2XWK 04/04/24 05/03/24 History vitamin B complex 1 tab PO HS 04/04/24 05/03/24 History cefdinir 300 mg capsule 300 mg PO .MWF 7 days #4 caps 04/28/24 05/03/24 Rx doxycycline hyclate 100 mg tablet 100 mg PO BID 7 days #14 tabs 04/28/24 05/03/24 Rx Saccharomyces boulardii 250 mg 250 mg PO BID 05/03/24 05/03/24 History capsule (Florastor) bacitracin 500 unit/gram topical 1 applic topical DAILY 05/03/24 05/03/24 History packet colestipol 1 gram tablet 2 g PO TID 05/03/24 05/03/24 History fentanyl 50 mcg/hr transdermal 50 mcg topical Q72H 05/03/24 05/03/24 History patch insulin lispro 100 unit/mL See Rx Instructions .Route .COMPLEX 05/03/24 05/03/24 History subcutaneous solution (Humalog U-100 Insulin) ipratropium 0.5 mg-albuterol 3 mg 3 ml inhalation Q2H PRN Shortness 05/03/24 05/03/24 History (2.5 mg base)/3 mL nebulization Of Breath Or Wheezing soln ipratropium 0.5 mg-albuterol 3 mg 3 ml inhalation QID 05/03/24 05/03/24 History (2.5 mg base)/3 mL nebulization soln prednisone 10 mg tablet 10 mg PO QAM 05/03/24 05/03/24 History prednisone 10 mg tablet 30 mg PO QAM 05/03/24 05/03/24 History prednisone 20 mg tablet 20 mg PO QAM 05/03/24 05/03/24 History prednisone 20 mg tablet 40 mg PO QAM 05/03/24 05/03/24 History Past Med/Surg History Problem List (Updated 05/03/24 @ 19:01 by Gerry Doss MD) Acute dyspnea (Acute) Electrolyte abnormality (Acute) ESRD (end stage renal disease) on dialysis (Acute) Parainfluenza type 1 infection (Acute) Acute hypoxemic respiratory failure (Acute) Acute diarrhea Elevated troponin Hyperglycemia due to type 2 diabetes mellitus Hypotension ESRD (end stage renal disease) on dialysis M[facility]W,F at [facility] permacat Fever (Acute) Bronchitis (Acute) Parainfluenza type 1 infection (Acute) Septic shock Chronic kidney disease requiring chronic dialysis (Acute) AMS (altered mental status) (Acute) Leukocytosis (Acute) Hypoxia (Acute) Admitted to intensive care unit Severe sepsis Acute osteomyelitis of right calcaneus Discitis of thoracic region Bacteremia Acute metabolic encephalopathy Abdominal pain Coagulopathy History of GI bleed Candidiasis of mouth and esophagus Hyperglycemia Cellulitis (Acute) Diabetic foot ulcer (Acute) RSV (acute bronchiolitis due to respiratory syncytial virus) (Acute) Hypothyroidism Hypoxia (Acute) Encounter for pre-operative examination PAD (peripheral artery disease) Moderate per vascular records Ischemic cardiomyopathy EF 30-35% per 08/2021 ECHO Chronic respiratory failure with hypoxia Only uses supplemental oxygen when sick- no oxygen needed at this point Anemia in chronic renal disease Hypothyroidism Obstructive sleep apnea No device Obesity Diabetic peripheral neuropathy Bilateral hands and feet Hypertension Depression Medical History Anemia of chronic disease History of severe sepsis Diabetes Hgb A1C 7.3 on 05/20/22 ESRD (end stage renal disease) on dialysis M,W,F at [facility]acat Aortic stenosis Moderate to severe per 08/2021 ECHO Coronary artery disease Denies stents or bypass Per cardio records - likely had prior LAD infarct (pt unaware of when); no ASA due to prior GI bleed Generalized weakness Shingles back-left flank onset 06/26/22 Diabetic ulcer of both feet 11/2021 Stable currently- had debridement 11/2021- wears [place] boots custodial resident [facility] Encounter for removal of vascular catheter 08/2021 - Dr Inocencio Pablo (HD catheter) History of gastrointestinal bleeding 06/2021 No recent issues History of CVA (cerebrovascular accident) Several strokes ("many years since last stroke") Surgical History S/P arteriovenous (AV) graft placement 07/2022, [facility] History of open reduction and internal fixation (ORIF) procedure RT IM NAILING 08/06/22 AT [facility] H/O foot surgery 08/2021 - right calcaneal resection 2nd to osteomyelitis - Dr Dick Naqvi Family History Other No pertinent family history Social History Smoking Status: Never smoker Hx Alcohol Use: No Hx Substance Use: No Preferred Language: Faroese Communication Ability: Effective Resource Teacher Required: No Beliefs That Will Affect Care: None Current Living Situation: Prison Current Living Situation Comment: [facility] Feels Safe at Home: Yes Safety Concerns: Feels Safe At This Time Assistive Devices: Wheelchair Review of Systems Review of Systems: see HPI Physical Exam Physical Exam: The patient is awake, alert and oriented 3, well developed and well nourished, normocephalic and atraumatic, in no acute distress. Non-toxic appearing. HEENT- EOMI, mucous membranes dry. Hearing grossly intact. Heart-normal S1 and S2. No murmurs, rubs or gallops. Lungs-wheezes bilaterally, no respiratory distress, no accessory muscle use. Abdomen-normal bowel sounds and soft. No ascites noted. Non-tender. Extremities- no clubbing, cyanosis, or edema. Rheumatologic-normal range of motion. Psychiatric-normal affect. Results & Data Results & Data Vital Signs (Past 12 Hours) Vital Signs Temp Pulse Resp BP Pulse Ox O2 Del Method 05/03/24 12:51 118 H 05/03/24 12:40 16 05/03/24 12:40 Room Air 05/03/24 12:26 36.6 C 119 H 18 130/84 92 Laboratory Results reviewed CBC, PT/INR, VBG, CMP, troponin, Mg Diagnostic Findings reviewed CXR Medications Administered ED: 500 mL NSS, Solu-Medrol 125 IV, levalbuterol neb, Tamiflu, Zosyn ECG Additional Comments: sinus tachycardia, rate 116 Code Status & VTE Plan Code Status dnr/dni VTE Prophylaxis Plan VTE Prophylaxis will be ordered: Yes Supervising Physician Co-Signing Physician Notes Attending Attestation & Admit Note: Pt seen/examined, chart reviewed, admit care plan d/w LIZET Greenberg. I agree w/ the rausch components of her admission documentation. 74yo female with ESRD on HD M/W/F ([facility] manages), T2DM, CAD, hypothyroidism. Presented with ongoing URI symptoms, diffuse myalgias, cough, dyspnea. Also with several weeks of diarrhea, at least 2-3 loose stools/day. Was dx with parainfluenza on 04/28/24 in our ER and d/c back to [facility] on abx & prednisone taper. Despite latter she has not improved. Appetite also has not been that good. PMH/PSH/allergies/meds/sochx/famhx - reviewed VSS, afebrile (although was mildly hypotensive and tachycardic early in the ER stay), 1 episode of transient hypoxia noted gen - sitting in bed, NAD, some coughing neck - no JVD mouth - MM slightly dry heart - tachy, s1 s2 lungs - diffuse wheezing b/l, occasional crackle, no increased work of breathing abd - soft NT ND BS+ ext - no edema, pulses 2+ b/l feet musculo - foot & distal leg deformity on right, right leg is shorter than left leg labs reviewed blood cx's pending cxr - no discrete pneumonia A/P: 1. sepsis 2nd to parainfluenza infection 2. parainfluenza induced bronchitis 3. ESRD on HD M/W/F 4. uncontrolled DM 2nd to stress of illness & recent steroids 5. mild hypotension - improved 6. diarrhea agree with steroids, bronchodilators, supportive care for #1, #2 repeat 2-view cxr AM tomorrow - r/o bacterial superinfection [facility] consult for dialysis needs increase lantus to BID dosing for uncontrolled DM; adjust novolog as needed s/p IV fluids with improved BPs; no further fluids due to ESRD status check c diff, stool biofire in light of #6 Lalit Quiroz MD PG Care Time/CCT Total # of Minutes Spent Total Time Spent with Patient: Total time spent is greater than 50% in coordination of care (as documented) at patient's floor/unit and/or counseling patient: Coding Level of Care Code 85818 INT INP/OBS CARE 3/75MIN Diagnoses Parainfluenza type 1 infection B34.8 Hypotension I95.9 ESRD (end stage renal disease) on dialysis N18.6; Z99.2 Hyperglycemia due to type 2 diabetes mellitus E11.65 Elevated troponin R79.89 Acute diarrhea R19.7
[2024-05-03 14:32] LABS: Adenovirus PCR Not Detected (NotDetected); Bordetella parapertussis PCR Not Detected (NotDetected); Bordetella pertussis PCR Not Detected (NotDetected); Chlamydia pneumoniae PCR Not Detected (NotDetected); Coronavirus 229E PCR Not Detected (NotDetected); Coronavirus CoV-2 (COVID19)PCR Not Detected (NotDetected); Coronavirus HKU1 PCR Not Detected (NotDetected); Coronavirus NL63 PCR Not Detected (NotDetected); Coronavirus OC43PCR Not Detected (NotDetected); Human Metapneumovirus PCR Not Detected (NotDetected); Influenza A PCR Not Detected (NotDetected); Influenza B PCR Not Detected (NotDetected); Mycoplasma pneumoniae PCR Not Detected (NotDetected); Parainfluenza Virus 1 PCR Not Detected (NotDetected); Parainfluenza Virus 2 PCR Not Detected (NotDetected); Parainfluenza Virus 3 PCR Not Detected (NotDetected); Parainfluenza Virus 4 PCR Not Detected (NotDetected); Respiratory Syncytial VirusPCR Not Detected (NotDetected); Rhinovirus/Enterovirus PCR Not Detected (NotDetected)
[2024-05-03] MEDS ORDERED: DEXTROSE 50% 50 ML SYRINGE IV PRN (15:25)
[2024-05-03] MEDS ORDERED: GLUCOSE 10 TAB/TUBE PO PRN (15:25)
[2024-05-03] MEDS ORDERED: GLUCOSE 40% GEL 15 GM TUBE PO PRN (15:25)
[2024-05-03] MEDS ORDERED: GLUCAGON FOR INJ 1 MG VIAL SQ PRN (15:25)
[2024-05-03] MEDS: MAGNESIUM SULFATE / D5W 1 GM/100 ML BAG IV ONE (15:51)
[2024-05-03] MEDS ORDERED: CALCIUM ACETATE 667 MG PO PRN (17:15)
[2024-05-03] MEDS: MoRPHine SULFATE 10 MG/0.5 ML UDP PO PRN (19:18)
[2024-05-03] MEDS: ALBUT/IPRATROP 3MG/0.5MG NEB 3 ML VIAL NEB SCH (19:43)
[2024-05-03] MEDS: INSULIN ASPART PER UNIT CHARGE SC SCH (20:04)
[2024-05-03] MEDS: methylPREDNISolone 40 MG in SYRINGE 0 ML IV SCH (20:10)
[2024-05-03] MEDS: BENZONATATE 100 MG CAPSULE PO SCH (20:10)
[2024-05-03] MEDS: GABAPENTIN 100 MG CAP PO SCH (20:11)
[2024-05-03] MEDS: PANTOprazole 40 MG TAB PO SCH (20:11)
[2024-05-03] MEDS: LEVOTHYROXINE SODIUM 175 MCG TABLET PO SCH (20:11)
[2024-05-03] MEDS: ATORVASTATIN 40 MG TAB PO SCH (20:12)
[2024-05-03] MEDS: COLESTIPOL HCL 1 GM TAB PO SCH (20:12)
[2024-05-03] MEDS: VITAMIN B COMPLEX TAB PO SCH (20:13)
--- NOTE | 2024-05-03 20:33 | Electrocardiogram Report ---
Test Reason : Blood Pressure : */* mmHG Vent. Rate : 116 BPM Atrial Rate : 116 BPM P-R Int : 160 ms QRS Dur : 86 ms QT Int : 326 ms P-R-T Axes : 67 -30 106 degrees QTcB Int : 453 ms Sinus tachycardia Premature atrial complexes Left axis deviation Minimal voltage criteria for LVH, may be normal variant Inferior infarct (cited on or before 06-Aug-2021) Anteroseptal infarct (cited on or before 04-Aug-2021) Poor R wave progression, consider anterior TN vs. lead placement vs. LVH Abnormal ECG When compared with ECG of 28-Apr-2024 11:19, No significant change was found Confirmed by Zi Carter ([id number]) on 05/03/2024 8:32:56 PM Referred By: [facility] Confirmed By: Zi Carter
[2024-05-03] MEDS ORDERED: methylPREDNISolone 1000 MG/16 ML IV SCH (21:00)
[2024-05-03] MEDS: CALCIUM ACETATE 667 MG CAP/TAB PO SCH (21:07)
[2024-05-03] MEDS: LANTUS PER UNIT CHARGE SQ SCH (21:20)
[2024-05-04 02:24] LABS: Hematocrit (blood only) 29.3 % (37.0-47.0); Hemoglobin 9.6 g/dl (12.0-16.0); Mean Corpuscular Hemoglobin 31.2 pg (25.0-34.0); Mean Corpuscular Hgb Conc 32.8 g/dL (32.0-36.0); Mean Corpuscular Volume 95.1 fL (80.0-100.0); Mean Platelet Volume 10.5 fL (9.4-12.4); Platelet Count 137 K/uL (130-400); RDW Coefficient of Variation 14.5 % (11.5-14.5); RDW Standard Deviation 49.8 fL (36.4-46.3); Red Blood Count 3.08 M/uL (4.20-5.40); White Blood Count 7.94 K/ul (4.8-10.8)
[2024-05-04 02:41] LABS: Basophils # (auto) 0.01 K/uL (0.00-0.20); Basophils % (auto) 0.1 %; Immature Granulocytes % (auto) 1.3 %; Lymphocytes # (auto) 0.51 K/uL (1.20-3.40); Lymphocytes % (auto) 6.4 %; Monocytes # (auto) 0.17 K/uL (0.11-0.59); Monocytes % (auto) 2.1 %; Neutrophils # (auto) 7.15 K/uL (1.40-6.50); Neutrophils % (auto) 90.1 %
[2024-05-04 02:47] LABS: BUN Creatinine Ratio 11.6 (10-20); Calcium 7.7 mg/dl (8.6-10.3); Creatinine Clr Calc Pharmacy 10.3 ml/min; Magnesium 1.8 mg/dl (1.7-2.4); Potassium 3.7 mmol/L (3.5-5.1)
[2024-05-04] MEDS: LANTUS PER UNIT CHARGE SQ SCH (09:06)
[2024-05-04 09:35] LABS: Troponin I High Sensitivity 28.1 pg/ml (0-14)
--- NOTE | 2024-05-04 09:40 | XRay Report ---
XR chest 2V PA/lateral CLINICAL HISTORY: parainfluenza infection; ?pneumonia COMPARISON STUDY: Chest radiograph May 03, 2024. FINDINGS: Right internal jugular dual lumen catheter remains in place. The cardiomediastinal silhouet te is stable. Pulmonary vascular congestion is unchanged. Left midlung triangular shaped opacity pers ists. Hazy right midlung opacity is noted. IMPRESSION: 1. Cardiomegaly with pulmonary vascular congestion, unchanged. 2. Hazy right midlung opacity. This may represent pneumonia. 3. Triangular shaped left midlung opacity. The configuration favors atelectasis although pneumonia co uld appear similar. ACT 112: Negative or not required by law. Electronically signed by: Abram Pinon M.D. 05/04/2024 9:38 AM
[2024-05-04] MEDS ORDERED: MoRPHine SULFATE 10 MG/0.5 ML UDP PO SCH (11:00)
[2024-05-04] MEDS: MIDODRINE HCL 10 MG TAB PO SCH (11:25)
[2024-05-04] MEDS: CEFEPIME 1000MG 1,000 MG/10 ML SYR IV SCH (13:37)
[2024-05-04] MEDS: HEPARIN SOD (PORCINE) 1000 UNIT/ML IV ONE (15:32)
[2024-05-04] MEDS: HEPARIN SOD (PORCINE) 1000 UNIT/ML IV SCH (15:32)
[2024-05-04] MEDS: MIDODRINE HCL 10 MG TAB PO STA (15:32)
[2024-05-04] MEDS: EPOETIN ALFA 10,000 UNITS/ML VIAL IV ONE (15:36)
--- NOTE | 2024-05-04 18:38 | Nephrology Consultation ---
Date of Consultation May 04, 2024 Assessment & Plan (1) ESRD (end stage renal disease) on dialysis: ESRD on MWF HD via TDC on site at [facility] -had HD today > we could get only 1.5 L off d/t hypotension (not uncommon as OP at least prior to past 6 wks to get 5 L off) -reeval for another tx in AM to help w/ resp status >K 3.7 today > but ran on 2K bath >> f/u K in AM > hgb 9.6 today > had 10K epo on HD (2) Acute hypoxemic respiratory failure: s/p 1.5L UF today started 1.2 L fluid limit as she is oligoanuric and has volume overload (3) Hypotension: h/o presume ischemic HF >> worse hypotension recently; >consider TTE >continue midodrine w/ HD >longer, slower HD for higher UF History of Present Illness Reason for Consultation: ESRD on HD Requesting Physician: Dr Quiroz Attending Physician: Lalit Quiroz MD History of Present Illness 74 y/o F whom I'm asked to see for dialysis needs was admitted yesterday afternoon from [facility] w/ intractable parainfluenza infection after presenting w/ worsening dyspnea. 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 She has had a series of R forearm/hand cellulitis episodes and wounds several of which were slow to heal. She has chronic ambulatory dysfunction and is essentially seated or in bed most of the time; transfers w/ a agapito lift at dialysis. She has chronic hypotension and is actually on midodrine routinely w/ HD. She had been seen here in ER after we sent her d/t upper body edema, lethargy >> dx'd w/ parainfluenza and d/c back to facility. She had some hypoxia in ER and is now on 02NC: CXR notable for plm vascular congestion not much different from 04/28 eval. She tells me she's exhausted, generalized weakness, and ongoing dyspnea. no n/v, no LE edema; pain now well controlled. She is adherent w/ dialysis treatments, though lately she's had smaller weight gain between treatments ( a sign she's feeling poorly). Allergies Allergy/AdvReac Type Severity Reaction Status Date / Time cyclobenzaprine Allergy Unknown Woozy Verified 05/03/24 17:18 [From Flexeril] Home Medications Medication Instructions Recorded Confirmed Type acetaminophen 325 mg tablet 650 mg PO Q6 PRN Fever 11/06/21 05/03/24 History (Tylenol) atorvastatin 80 mg tablet 80 mg PO HS 11/06/21 05/03/24 History gabapentin 100 mg capsule 100 mg PO TID 11/06/21 05/03/24 History pantoprazole 40 mg tablet,delayed 40 mg PO BID 11/06/21 05/03/24 History release insulin glargine 100 unit/mL 10 unit subcut HS 04/11/22 05/03/24 History subcutaneous solution (Lantus U-100 Insulin) sucroferric oxyhydroxide 500 mg 500 mg PO TIDWMEAL 04/11/22 05/03/24 History chewable tablet (Velphoro) bisacodyl 10 mg rectal suppository 10 mg [place] DAILY PRN Constipation 08/27/22 05/03/24 History (Dulcolax (bisacodyl)) cholecalciferol (vitamin D3) 125 125 mcg PO HS 08/27/22 05/03/24 History mcg (5,000 unit) tablet (Vitamin D3) multivitamin 1 tab PO HS 08/27/22 05/03/24 History polyethylene glycol 3350 17 17 g PO BID 08/27/22 05/03/24 History gram/dose oral powder (Miralax) sennosides 8.6 mg-docusate sodium 1 tab-cap PO BID 08/27/22 05/03/24 History 50 mg tablet (Senokot-S) sodium phosphates 19 gram-7 118 ml AZ UD PRN Constipation 08/27/22 05/03/24 History gram/118 mL enema (Fleet Enema) calcium acetate(phosphat bind) 667 667 mg PO DAILY PRN Snacks 09/19/22 05/03/24 History mg tablet calcium acetate(phosphat bind) 667 1,334 mg PO TIDWMEAL 04/04/24 05/03/24 History mg capsule carboxymethylcellulose sodium 1 % 2 drp OPB BID 04/04/24 05/03/24 History eye drops (Artificial Tears (carboxymethylcellulose)) diclofenac sodium 1 % topical gel 2 g topical QID b/l hand pain 04/04/24 05/03/24 History levothyroxine 175 mcg tablet 175 mcg PO HS 04/04/24 05/03/24 History midodrine 10 mg tablet 10 mg PO 3XWK 04/04/24 05/03/24 History morphine concentrate 100 mg/5 mL 10 mg PO 3XWK 04/04/24 05/03/24 History (20 mg/mL) oral solution morphine concentrate 100 mg/5 mL 10 mg PO Q4H PRN Pain 04/04/24 05/03/24 History (20 mg/mL) oral solution ondansetron HCl 4 mg tablet 4 mg PO 3XWK 04/04/24 05/03/24 History ondansetron HCl 4 mg tablet 4 mg PO Q6H PRN Nausea And Vomiting 04/04/24 05/03/24 History protein supplement 1 ea PO UD 04/04/24 05/03/24 History sacubitril 24 mg-valsartan 26 mg 1 tab PO QPM 04/04/24 05/03/24 History tablet (Entresto) sucroferric oxyhydroxide 500 mg 500 mg PO DAILY PRN W/Snacks 04/04/24 05/03/24 History chewable tablet (Velphoro) torsemide 20 mg tablet 120 mg PO 2XWK 04/04/24 05/03/24 History vitamin B complex 1 tab PO HS 04/04/24 05/03/24 History cefdinir 300 mg capsule 300 mg PO .MWF 7 days #4 caps 04/28/24 05/03/24 Rx doxycycline hyclate 100 mg tablet 100 mg PO BID 7 days #14 tabs 04/28/24 05/03/24 Rx Saccharomyces boulardii 250 mg 250 mg PO BID 05/03/24 05/03/24 History capsule (Florastor) bacitracin 500 unit/gram topical 1 applic topical DAILY 05/03/24 05/03/24 History packet colestipol 1 gram tablet 2 g PO TID 05/03/24 05/03/24 History fentanyl 50 mcg/hr transdermal 50 mcg topical Q72H 05/03/24 05/03/24 History patch insulin lispro 100 unit/mL See Rx Instructions .Route .COMPLEX 05/03/24 05/03/24 History subcutaneous solution (Humalog U-100 Insulin) ipratropium 0.5 mg-albuterol 3 mg 3 ml inhalation Q2H PRN Shortness 05/03/24 05/03/24 History (2.5 mg base)/3 mL nebulization Of Breath Or Wheezing soln ipratropium 0.5 mg-albuterol 3 mg 3 ml inhalation QID 05/03/24 05/03/24 History (2.5 mg base)/3 mL nebulization soln prednisone 10 mg tablet 10 mg PO QAM 05/03/24 05/03/24 History prednisone 10 mg tablet 30 mg PO QAM 05/03/24 05/03/24 History prednisone 20 mg tablet 20 mg PO QAM 05/03/24 05/03/24 History prednisone 20 mg tablet 40 mg PO QAM 05/03/24 05/03/24 History Patient History Medical History Anemia of chronic disease History of severe sepsis Diabetes Hgb A1C 7.3 on 05/20/22 Aortic stenosis Moderate to severe per 08/2021 ECHO Coronary artery disease Denies stents or bypass Per cardio records - likely had prior LAD infarct (pt unaware of when); no ASA due to prior GI bleed Generalized weakness Shingles back-left flank onset 06/26/22 Diabetic ulcer of both feet 11/2021 Stable currently- had debridement 11/2021- wears [employer] boots half-way resident [facility] [place] Encounter for removal of vascular catheter 08/2021 - Dr Inocencio Pablo (HD catheter) History of gastrointestinal bleeding 06/2021 No recent issues History of CVA (cerebrovascular accident) Several strokes ("many years since last stroke") Surgical History S/P arteriovenous (AV) graft placement 07/2022, [facility] History of open reduction and internal [place] ([place]IF) [place] [facility] [place] 08[place] - right calcaneal resection 2nd to osteomyelitis - Dr Dick Naqvi Family History Other No pertinent family history Social History Smoking Status: Never smoker Hx Alcohol Use: No Hx Substance Use: No Preferred Language: Emir[place] Communication Ability: Effective Journeyman 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 Required: No Beliefs That Will Affect Care: None Current Living Situation: Custodial Current Living Situation Comment: [facility] Feels Safe at Home: Yes Safety Concerns: Feels Safe At This Time Assistive Devices: Wheelchair Review of Systems 2 Review of Systems: All systems reviewed & are unremarkable except as noted in HPI & below Physical Exam 2 Constitutional: well developed, well nourished, + frail appearing and cooperative (but tired); no acute distress Eyes: EOM intact bilaterally and + periorbital abnormality (periorbital edema) ENMT: Mouth: + dry oral mucous membranes Respiratory: normal respiratory effort Auscultation: + diminished lung sounds Cardiovascular: Rate/Rhythm: regular rate and regular rhythm Heart Sounds: + murmur Extremities: no edema Gastrointestinal (Abdomen): Inspection/Auscultation: normal bowel sounds P ercussion/Palpation: abdomen soft; abdomen nontender Musculoskeletal: Extremities: + abnormal strength Skin: no rashes, warm and dry Neurologic: davis, fluent speech, no tremor Psychiatric: Orientation: oriented x 3; + not alert (but arouseable) Results & Data Vital Signs (Past 12 Hours) Vital Signs Temp Pulse Pulse Resp BP BP Pulse Ox 05/04/24 18:00 69 113/63 05/04/24 17:30 76 104/58 L 05/04/24 17:00 68 97/52 L 05/04/24 16:30 58 L 106/71 05/04/24 16:00 73 78/38 L 05/04/24 15:30 72 77/37 L 05/04/24 15:00 71 81/37 L 05/04/24 14:30 70 92/38 L 05/04/24 14:21 36.5 C 05/04/24 14:00 86 05/04/24 11:04 81 20 95 05/04/24 10:44 36.6 C 85 17 110/63 94 05/04/24 08:00 91 H 05/04/24 08:00 05/04/24 07:20 98 H 20 97 05/04/24 07:11 36.4 C L 97 H 18 136/80 96 O2 Del Method O2 Flow Rate 05/04/24 18:00 05/04/24 17:30 05/04/24 17:00 05/04/24 16:30 05/04/24 16:00 05/04/24 15:30 05/04/24 15:00 05/04/24 14:30 05/04/24 14:21 05/04/24 14:00 05/04/24 11:04 Nasal Cannula 2 05/04/24 10:44 Nasal Cannula 2 05/04/24 08:00 05/04/24 08:00 Nasal Cannula 3 05/04/24 07:20 Nasal Cannula 2 05/04/24 07:11 Nasal Cannula 2 Laboratory Results 05/04/24 02:08 05/04/24 02:08 Diagnostic Findings 2V cxr w/ ? R midlung PNA; ongonig /unchanged vasc congestion
--- NOTE | 2024-05-04 18:47 | Hospitalist Progress Note ---
Date of Service May 04, 2024 Assessment & Plan (1) Pneumonia: Plan: cxr this AM with suspected b/l infiltrates c/w pneumonia could be all due to parainfluenza, but certainly could be bacterial at risk of gram negative pathogens due to SNF living, recent hospital stay early 04/2024, ESRD, etc. thus, will start cefepime renally dosed cont other supportive care (2) Acute bronchitis due to parainfluenza virus: Plan: severe - but improving slowly cont IV steroids but lower solumedrol from 40mg BID to 30mg BID starting tomorrow cont scheduled nebs add mucolytics cont tessalon TID cont pulm toilet consider saline nebs (3) Sepsis: Plan: 2nd to #1, #2 improving blood cx's negative to date (4) Parainfluenza type 1 infection: Plan: tested positive 04/28 when seen in ED procal 0.59 on 04/28 -> thus discharged back to SNF on Cefdinir, doxycycline, prednisone taper blood cultures from 04/28 showed no growth see above re: cxr findings, possible complicating bacterial pneumonia cont other supportive care (5) Hypotension: Plan: 2nd to sepsis from #1, #2 resolved cont Midodrine before dialysis treatments (6) ESRD (end stage renal disease) on dialysis: Plan: follows with [facility] nephrology HD scheduled MWF appreciate [facility] nephrology's assistance for HD needs Continue Velphoro Continue calcium acetate Midodrine before dialysis hold torsemide & Entresto in light of #5 (7) Hyperglycemia due to type 2 diabetes mellitus: Plan: Typically controlled on lantus 10 U HS and SSI at SNF Most recent A1C 7.0% Uncontrolled due to steroids Increase lantus to 20 units BID Increase novolog parameters Could consider novolin-N to cover steroids but defer for now (8) Elevated troponin: Plan: peak HS trop 31.9 likely secondary to ESRD and/or myocardial demand ischemia from her sepsis/respiratory infection no evidence of ACS (9) Acute diarrhea: Plan: x 3 weeks with recent antibiotic use stool BioFire + c diff ordered but no stools since admission (10) Thrombocytopenia: Plan: check b12/folate in am could be sepsis-associated thrombocytopenia and, if that is the case, counts will recover with supportive care Plan Chronic stable diagnoses: CAD - continue statin hypothyroidism - continue levothyroxine; TSH 3 chronic pain - continue morphine prn; will talk with her about weaning fentanyl patch (last one applied 05/02) rather than just simply stopping (has expressed a desire to stop such??) VTE ppx: heparin 5000 BID - add; platelets 137 and stable Mildly elevated INR - etiology? vit K def? repeat in am PT, OT evals Admission and Anticipated Discharge Date Admission Date: May 03, 2024 Subjective diffuse myalgias improved still coughing still with sputum perhaps not as bad as previous appetite a little better no diarrhea since admission no abd pain no fevers still quite tired Review of Systems Review of Systems: gen - no fevers or chills cv - no chest pain, no orthopnea pulm - ongoing wheezing, some dyspnea GI - no abd pain Physical Exam Physical Exam: gen - laying in bed, NAD, some coughing at times (bronchial cough) neck - no JVD mouth - MM slightly dry heart - RRR, s1 s2, 2/6 holosystolic murmur RUSB/apex lungs - diffuse wheezing b/l, occasional crackle bases, no increased work of breathing abd - soft NT ND BS+ ext - no edema, pulses 2+ b/l feet musculo - foot & distal leg deformity on right, right leg is shorter than left leg Results & Data Results & Data Vital Signs (Past 12 Hours) Vital Signs Temp Pulse Pulse Resp BP BP Pulse Ox 05/04/24 18:00 69 113/63 05/04/24 17:30 76 104/58 L 05/04/24 17:00 68 97/52 L 05/04/24 16:30 58 L 106/71 05/04/24 16:00 73 78/38 L 05/04/24 15:30 72 77/37 L 05/04/24 15:00 71 81/37 L 05/04/24 14:30 70 92/38 L 05/04/24 14:21 36.5 C 05/04/24 14:00 86 05/04/24 11:04 81 20 95 05/04/24 10:44 36.6 C 85 17 110/63 94 05/04/24 08:00 91 H 05/04/24 08:00 05/04/24 07:20 98 H 20 97 05/04/24 07:11 36.4 C L 97 H 18 136/80 96 O2 Del Method O2 Flow Rate 05/04/24 18:00 05/04/24 17:30 05/04/24 17:00 05/04/24 16:30 05/04/24 16:00 05/04/24 15:30 05/04/24 15:00 05/04/24 14:30 05/04/24 14:21 05/04/24 14:00 05/04/24 11:04 Nasal Cannula 2 05/04/24 10:44 Nasal Cannula 2 05/04/24 08:00 05/04/24 08:00 Nasal Cannula 3 05/04/24 07:20 Nasal Cannula 2 05/04/24 07:11 Nasal Cannula 2 Laboratory Results Laboratory Results - last 24 hr 05/03/24 05/03/24 05/03/24 20:17 20:50 22:45 WBC RBC Hgb Hct MCV MCH MCHC RDW Std Deviation RDW Coeff of Juno Plt Count MPV Immature Gran % (Auto) Neut % (Auto) Lymph % (Auto) Meagher % (Auto) Eos % (Auto) Baso % (Auto) Neut # (Auto) Lymph # (Auto) Meagher # (Auto) Eos # (Auto) Baso # (Auto) Immature Gran # (Auto) Sodium Potassium Chloride Carbon Dioxide Anion Gap BUN Creatinine Est Cr Clr Drug Dosing eGFR BUN/Creatinine Ratio Glucose POC Glucose 369 H* Calcium Magnesium AST Total Creatine Kinase Troponin I High Sens 24.6 H Nasal Screen MRSA (PCR) Negative Hep Bs Antigen Hep Bs Antibody Hep Bs Antibody, Quant 05/04/24 05/04/24 05/04/24 02:08 07:09 07:55 WBC 7.94 RBC 3.08 L Hgb 9.6 L Hct 29.3 L MCV 95.1 MCH 31.2 MCHC 32.8 RDW Std Deviation 49.8 H RDW Coeff of Juno 14.5 Plt Count 137 MPV 10.5 Immature Gran % (Auto) 1.3 Neut % (Auto) 90.1 Lymph % (Auto) 6.4 Meagher % (Auto) 2.1 Eos % (Auto) 0.0 Baso % (Auto) 0.1 Neut # (Auto) 7.15 H Lymph # (Auto) 0.51 L Meagher # (Auto) 0.17 Eos # (Auto) 0.00 Baso # (Auto) 0.01 Immature Gran # (Auto) 0.10 Sodium 127 L Potassium 3.7 Chloride 91 L Carbon Dioxide 26 Anion Gap 10 BUN 51 H Creatinine 4.39 H D Est Cr Clr Drug Dosing 10.3 eGFR 10.08 BUN/Creatinine Ratio 11.6 Glucose 410 H* POC Glucose 394 H* Calcium 7.7 L Magnesium 1.8 AST 26 Total Creatine Kinase 18 L Troponin I High Sens 31.9 H 28.1 H Nasal Screen MRSA (PCR) Hep Bs Antigen Hep Bs Antibody Hep Bs Antibody, Quant 05/04/24 05/04/24 05/04/24 09:49 10:56 18:34 WBC RBC Hgb Hct MCV MCH MCHC RDW Std Deviation RDW Coeff of Juno Plt Count MPV Immature Gran % (Auto) Neut % (Auto) Lymph % (Auto) Meagher % (Auto) Eos % (Auto) Baso % (Auto) Neut # (Auto) Lymph # (Auto) Meagher # (Auto) Eos # (Auto) Baso # (Auto) Immature Gran # (Auto) Sodium Potassium Chloride Carbon Dioxide Anion Gap BUN Creatinine Est Cr Clr Drug Dosing eGFR BUN/Creatinine Ratio Glucose POC Glucose 391 H* 85 Calcium Magnesium AST Total Creatine Kinase Troponin I High Sens Nasal Screen MRSA (PCR) Hep Bs Antigen Pending Hep Bs Antibody Pending Hep Bs Antibody, Quant Pending Diagnostic Findings Chest X-Ray 05/04/24 07:30 XR chest 2V PA/lateral CLINICAL HISTORY: parainfluenza infection; ?pneumonia COMPARISON STUDY: Chest radiograph May 03, 2024. FINDINGS: Right internal jugular dual lumen catheter remains in place. The cardiomediastinal silhouette is stable. Pulmonary vascular congestion is unchanged. Left midlung triangular shaped opacity persists. Hazy right midlung opacity is noted. IMPRESSION: 1. Cardiomegaly with pulmonary vascular congestion, unchanged. 2. Hazy right midlung opacity. This may represent pneumonia. 3. Triangular shaped left midlung opacity. The configuration favors atelectasis although pneumonia could appear similar. ACT 112: Negative or not required by law. Electronically signed by: Abram Pinon M.D. 05/04/2024 9:38 AM PG Care Time/CCT Total # of Minutes Spent Total Time Spent with Patient: Total time spent is greater than 50% in coordination of care (as documented) at patient's floor/unit and/or counseling patient: Coding Level of Care Code 11404 SUB INP/OBS CARE 50MIN Diagnoses Pneumonia J18.9 Acute bronchitis due to parainfluenza virus J20.4 Sepsis A41.9 Parainfluenza type 1 infection B34.8 Hypotension I95.9 ESRD (end stage renal disease) on dialysis N18.6; Z99.2 Hyperglycemia due to type 2 diabetes mellitus E11.65 Elevated troponin R79.89 Acute diarrhea R19.7 Thrombocytopenia D69.6
--- NOTE | 2024-05-04 19:42 | Dialysis Progress Note ---
Date of Service May 04, 2024 Assessment & Plan (1) ESRD (end stage renal disease) on dialysis: Plan: ESRD on MWF HD via TDC on site at [facility] -reeval for another tx in AM to help w/ resp status >K 3.7 today > but ran on 2K bath >> f/u K in AM > ordered BMP > hgb 9.6 today > had 10K epo on HD (2) Acute hypoxemic respiratory failure: Plan: s/p 1.5L UF today started 1.2 L fluid limit as she is oligoanuric and has volume overload (3) Hypotension: Plan: h/o presume ischemic HF >> worse hypotension recently; >consider TTE >continue midodrine w/ HD >longer, slower HD for higher UF Admission and Anticipated Discharge Date Admission Date: May 03, 2024 Subjective seen on dialysis rounds at approximately 1645; no c/o cramps, n/v; feels dyspnea a bit better; very tired Review of Systems Review of Systems: All systems reviewed & are unremarkable except as noted in Subjective Physical Exam Constitutional: well developed, well nourished, + frail appearing and cooperative (but tired); no acute distress Eyes: EOM intact bilaterally and + periorbital abnormality (periorbital edema) ENMT: Mouth: + dry oral mucous membranes Respiratory: normal respiratory effort Auscultation: + diminished lung sounds Cardiovascular: Rate/Rhythm: regular rate and regular rhythm Heart Sounds: + murmur Extremities: no edema Gastrointestinal (Abdomen): Inspection/Auscultation: normal bowel sounds Percussion/Palpation: abdomen soft; abdomen nontender Musculoskeletal: Extremities: + abnormal strength Skin: no rashes, warm and dry Psychiatric: Orientation: oriented x 3; + not alert (but arouseable) Results & Data Vital Signs (Past 12 Hours) Vital Signs Temp Pulse Pulse Pulse Resp BP BP 05/04/24 19:26 70 18 05/04/24 18:35 36.6 C 71 126/56 L 05/04/24 18:00 69 113/63 05/04/24 17:30 76 104/58 L 05/04/24 17:00 68 97/52 L 05/04/24 16:30 58 L 106/71 05/04/24 16:00 73 78/38 L 05/04/24 15:30 72 77/37 L 05/04/24 15:00 71 81/37 L 05/04/24 14:30 70 92/38 L 05/04/24 14:21 36.5 C 05/04/24 14:00 86 05/04/24 11:04 81 20 05/04/24 10:44 36.6 C 85 17 110/63 05/04/24 08:00 91 H 05/04/24 08:00 Pulse Ox O2 Del Method O2 Flow Rate 05/04/24 19:26 95 Nasal Cannula 3 05/04/24 18:35 05/04/24 18:00 05/04/24 17:30 05/04/24 17:00 05/04/24 16:30 05/04/24 16:00 05/04/24 15:30 05/04/24 15:00 05/04/24 14:30 05/04/24 14:21 05/04/24 14:00 05/04/24 11:04 95 Nasal Cannula 2 05/04/24 10:44 94 Nasal Cannula 2 05/04/24 08:00 05/04/24 08:00 Nasal Cannula 3 Laboratory Results reviewed
[2024-05-05 07:28] LABS: Hematocrit (blood only) 29.5 % (37.0-47.0); Hemoglobin 9.7 g/dl (12.0-16.0); Mean Corpuscular Hemoglobin 31.3 pg (25.0-34.0); Mean Corpuscular Hgb Conc 32.9 g/dL (32.0-36.0); Mean Corpuscular Volume 95.2 fL (80.0-100.0); Mean Platelet Volume 10.6 fL (9.4-12.4); Platelet Count 161 K/uL (130-400); RDW Coefficient of Variation 15.1 % (11.5-14.5); RDW Standard Deviation 51.8 fL (36.4-46.3); White Blood Count 11.87 K/ul (4.8-10.8)
[2024-05-05 07:49] LABS: INR 1.3 (0.9-1.1)
[2024-05-05 08:17] LABS: Folate (Folic Acid),Ser orPlas 9.3 ng/ml (>5.38)
[2024-05-05 08:26] LABS: BUN Creatinine Ratio 12.3 (10-20); Calcium 7.9 mg/dl (8.6-10.3); Potassium 3.6 mmol/L (3.5-5.1)
[2024-05-05] MEDS: methylPREDNISolone 30 MG in SYRINGE 0 ML IV SCH (08:36)
[2024-05-05] MEDS: HEPARIN SOD 5,000 UNIT/0.5 ML VIAL SQ SCH (08:36)
[2024-05-05] MEDS: guaiFENesin 600 MG TABCR PO SCH (08:39)
[2024-05-05] MEDS: MIDODRINE HCL 10 MG TAB PO SCH (08:45)
[2024-05-05 08:50] LABS: Hep B Surface Ag with confirm Negative (Negative)
[2024-05-05 08:58] LABS: Hepatitis B Surface Ab Quant 3.52 mIU/mL (>or=10mIU/mL Immune); Hepatitis B Surface Antibody Non-Immune
[2024-05-05 09:38] LABS: Appearance Urine Clear (Clear); Bacteria Urine Automated None Seen (None Seen); Bilirubin Urine 1+ (Negative); Blood Urine Negative (Negative); Cast Urine Automated 0-2 /lpf (0-2); Color Urine Dark Yellow; Epithelial Cell Urine Auto 0-2 /hpf (0-2); Glucose Urine UA 3+ (Negative); Ketones Urine Trace (Negative); Leukocyte Esterase Urine Negative (Negative); Nitrite Urine Negative (Negative); Protein Urine 3+ (Negative); Urobilinogen Urine Negative (Negative); WBC Urine Automated 0-5 /hpf (0-5); pH Urine 5.5 (4.5-7.5)
[2024-05-05 09:49] LABS: RBC Urine Automated 0-2 /hpf (0-2)
[2024-05-05] MEDS: HEPARIN SOD (PORCINE) 1000 UNIT/ML IV SCH (10:23)
[2024-05-05] MEDS: HEPARIN SOD (PORCINE) 1000 UNIT/ML IV ONE (10:23)
[2024-05-05] MEDS: MIDODRINE HCL 10 MG TAB PO PRN (10:40)
[2024-05-05] MEDS: EPOETIN ALFA 10,000 UNITS/ML VIAL IV ONE (10:41)
--- NOTE | 2024-05-05 13:49 | Hospitalist Progress Note ---
Date of Service May 05, 2024 Assessment & Plan (1) Pneumonia: Plan: b/l - as seen on 05/04 CXR could be all due to parainfluenza, but certainly could be bacterial at risk of gram negative pathogens due to SNF living, recent hospital stay early 04/2024, ESRD, etc. day #2 of IV cefepime - renally dosed clinically stable today weaned off supplemental O2 (2) Acute bronchitis due to parainfluenza virus: Plan: improving cont steroids but stop solumedrol - change to PO prednisone 40mg daily starting 05/06/24 cont scheduled nebs cont mucolytics cont tessalon TID cont pulm toilet (3) Sepsis: Plan: 2nd to #1, #2 resolved blood cx's negative (4) Parainfluenza type 1 infection: Plan: tested positive 04/28 when seen in ED procal 0.59 on 04/28 -> thus discharged back to SNF on Cefdinir, doxycycline, prednisone taper blood cultures from 04/28 showed no growth see above re: cxr findings, possible complicating bacterial pneumonia cont other supportive care (5) Hypotension: Plan: 2nd to sepsis from #1, #2 resolved cont Midodrine before dialysis treatments (6) ESRD (end stage renal disease) on dialysis: Plan: follows with [facility] nephrology HD schedule MWF appreciate [facility] nephrology's assistance for HD needs Continue Velphoro Continue calcium acetate Midodrine before dialysis hold torsemide & Entresto in light of #5 s/p HD yesterday and again today (7) Hyperglycemia due to type 2 diabetes mellitus: Plan: Typically controlled on lantus 10 U HS and SSI at [facility] Most recent A1C 7.0% Uncontrolled due to steroids Now that solumedrol is being stopped anticipate BSGs to improve Thus, Adjust lantus & Adjust novolog parameters (8) Elevated troponin: Plan: peak HS trop 31.9 likely secondary to ESRD and/or myocardial demand ischemia from her sepsis/respiratory infection no evidence of ACS (9) Acute diarrhea: Plan: x 3 weeks with recent antibiotic use stool BioFire + c diff ordered but no stools since admission (10) Thrombocytopenia: Plan: b12/folate both wnl likely sepsis-associated thrombocytopenia as platelet count now normal Plan Chronic stable diagnoses: CAD - continue statin hypothyroidism - continue levothyroxine; TSH 3 chronic pain - continue morphine prn; will talk with her about weaning fentanyl patch (last one applied 05/02) rather than just simply stopping (has expressed a desire to stop such??) VTE ppx: heparin 5000 BID Mildly elevated INR - etiology? vit K def? cirrhosis? other? INR today again 1.3 - give vit k 5mg po x 1 and recheck INR tomorrow PT eval requested Admission and Anticipated Discharge Date Admission Date: May 03, 2024 Subjective overall feeling much better cough improved no dyspnea appetite much improved still no diarrhea no abd pain myalgias improved had another HD session today o2 weaned off tele overnight - sinus tach or NSR Review of Systems Review of Systems: gen - no fevers or chills cv - no chest pain, no edema GI - no N/V Physical Exam Physical Exam: gen - laying in bed, NAD, looks much better today neck - no JVD mouth - MMM heart - RRR, s1 s2, 2/6 holosystolic murmur RUSB/apex lungs - wheezing b/l - improved, rare crackle bases, no increased work of breathing abd - soft NT ND BS+ ext - no edema, pulses 2+ b/l feet musculo - foot & distal leg deformity on right, right leg is shorter than left leg Results & Data Results & Data Vital Signs (Past 12 Hours) Vital Signs Temp Pulse Pulse Pulse Resp BP BP 05/05/24 11:30 36.5 C 78 107/63 05/05/24 11:00 79 87/42 L 05/05/24 10:30 71 83/49 L 05/05/24 10:00 87 91/58 L 05/05/24 09:30 75 119/63 05/05/24 09:22 36.5 C 97 H 05/05/24 07:47 36.4 C L 69 20 05/05/24 07:06 83 18 05/05/24 03:02 74 18 05/05/24 02:40 36.6 C 77 139/86 BP Pulse Ox O2 Del Method 05/05/24 11:30 05/05/24 11:00 05/05/24 10:30 05/05/24 10:00 05/05/24 09:30 05/05/24 09:22 05/05/24 07:47 135/76 97 Room Air 05/05/24 07:06 95 Room Air 05/05/24 03:02 92 Room Air 05/05/24 02:40 95 Room Air Laboratory Results Laboratory Results - last 24 hr 05/04/24 05/05/24 05/05/24 09:49 06:40 07:25 WBC 11.87 H RBC 3.10 L Hgb 9.7 L Hct 29.5 L MCV 95.2 MCH 31.3 MCHC 32.9 RDW Std Deviation 51.8 H RDW Coeff of Juno 15.1 H Plt Count 161 MPV 10.6 PT 14.0 H INR 1.3 H Sodium 130 L Potassium 3.6 Chloride 93 L Carbon Dioxide 28 Anion Gap 9 BUN 39 H Creatinine 3.17 H D Est Cr Clr Drug Dosing 17.0 eGFR 14.90 BUN/Creatinine Ratio 12.3 Glucose 316 H* POC Glucose 322 H* Calcium 7.9 L Vitamin B12 699 Folate 9.30 Urine Color Urine Appearance Urine pH Ur Specific [place] Urine Protein Urine Glucose (UA) Urine Ketones Urine Blood Urine Nitrite Urine Bilirubin Urine Urobilinogen Ur Leukocyte Esterase Urine WBC (Auto) Urine RBC (Auto) U Hyaline Cast (Auto) U Epithel Cells (Auto) Urine Bacteria (Auto) Urine Yeast Hep Bs Antigen Negative Hep Bs Antibody Non-Immune Hep Bs Antibody, Quant 3.52 05/05/24 05/05/24 05/05/24 12:13 15:57 20:20 WBC RBC Hgb Hct MCV MCH MCHC RDW Std Deviation RDW Coeff of Juno Plt Count MPV PT INR Sodium Potassium Chloride Carbon Dioxide Anion Gap BUN Creatinine Est Cr Clr Drug Dosing eGFR BUN/Creatinine Ratio Glucose POC Glucose 193 H 129 H 68 L* Calcium Vitamin B12 Folate Urine Color Urine Appearance Urine pH Ur Specific [place] Urine Protein Urine Glucose (UA) Urine Ketones Urine Blood Urine Nitrite Urine Bilirubin Urine Urobilinogen Ur Leukocyte Esterase Urine WBC (Auto) Urine RBC (Auto) U Hyaline Cast (Auto) U Epithel Cells (Auto) Urine Bacteria (Auto) Urine Yeast Hep Bs Antigen Hep Bs Antibody Hep Bs Antibody, Quant 05/05/24 05/05/24 05/05/24 20:20 20:38 Unknown WBC RBC Hgb Hct MCV MCH MCHC RDW Std Deviation RDW Coeff of Juno Plt Count MPV PT INR Sodium Potassium Chloride Carbon Dioxide Anion Gap BUN Creatinine Est Cr Clr Drug Dosing eGFR BUN/Creatinine Ratio Glucose POC Glucose 69 L* 70 Calcium Vitamin B12 Folate Urine Color Dark Yellow Urine Appearance Clear Urine pH 5.5 Ur Specific [place] 1.030 Urine Protein 3+ H Urine Glucose (UA) 3+ H Urine Ketones Trace H Urine Blood Negative Urine Nitrite Negative Urine Bilirubin 1+ H Urine Urobilinogen Negative Ur Leukocyte Esterase Negative Urine WBC (Auto) 0-5 Urine RBC (Auto) 0-2 U Hyaline Cast (Auto) 0-2 U Epithel Cells (Auto) 0-2 Urine Bacteria (Auto) None Seen Urine Yeast Present A Hep Bs Antigen Hep Bs Antibody Hep Bs Antibody, Quant PG Care Time/CCT Total # of Minutes Spent Total Time Spent with Patient: Total time spent is greater than 50% in coordination of care (as documented) at patient's floor/unit and/or counseling patient: Coding Level of Care Code 28685 SUB INP/OBS CARE 3/50MIN Diagnoses Pneumonia J18.9 Acute bronchitis due to parainfluenza virus J20.4 Sepsis A41.9 Parainfluenza type 1 infection B34.8 Hypotension I95.9 ESRD (end stage renal disease) on dialysis N18.6; Z99.2 Hyperglycemia due to type 2 diabetes mellitus E11.65 Elevated troponin R79.89 Acute diarrhea R19.7 Thrombocytopenia D69.6
[2024-05-05] MEDS: PHYTONADIONE 5 MG TAB PO STA (14:36)
--- NOTE | 2024-05-05 19:02 | Nephrology Progress Note ---
Date of Service May 05, 2024 Assessment & Plan (1) ESRD (end stage renal disease) on dialysis: Plan: ESRD on MWF HD via TDC on site at [facility] -for routine tx in AM after extra 2 hr tx today >K 3.6 today > plan 3K bath in AM > hgb 9.7 today > will give 10K epo on HD in AM (2) Acute hypoxemic respiratory failure: Plan: s/p 1.5L UF 05/04 + 2.5 L today continue 1.2 L fluid limit as she is oligoanuric and has volume overload (3) Hypotension: Plan: h/o presume ischemic HF >> worse hypotension recently; but improving today; did have midodrine w/ tx today >consider TTE >continue midodrine w/ HD >longer, slower HD for higher UF Admission and Anticipated Discharge Date Admission Date: May 03, 2024 Subjective had extra 2 hr HD today and feels much improved; on RA; BP better > tolerated 2.5 L UF; no cramps; chronic pain well controlled w/ meds Review of Systems 2 Review of Systems: All systems reviewed & are unremarkable except as noted in Subjective Physical Exam 2 Constitutional: well developed, well nourished, + frail appearing and cooperative; no acute distress Eyes: EOM intact bilaterally and + periorbital abnormality (periorbital edema) ENMT: Mouth: + dry oral mucous membranes Respiratory: normal respiratory effort Auscultation: + diminished lung sounds Cardiovascular: Rate/Rhythm: regular rate and regular rhythm Heart Sounds: + murmur Extremities: no edema Gastrointestinal (Abdomen): Inspection/Auscultation: normal bowel sounds P ercussion/Palpation: abdomen soft; abdomen nontender Musculoskeletal: Extremities: + abnormal strength Skin: no rashes, warm and dry Psychiatric: Orientation: alert (but arouseable) and oriented x 3 Results & Data Vital Signs (Past 12 Hours) Vital Signs Temp Pulse Pulse Pulse Resp BP BP 05/05/24 14:38 36.7 C 72 22 149/75 H 05/05/24 14:27 80 80 18 05/05/24 13:05 84 05/05/24 11:30 36.5 C 78 107/63 05/05/24 11:00 79 87/42 L 05/05/24 10:30 71 83/49 L 05/05/24 10:00 87 91/58 L 05/05/24 09:30 75 119/63 05/05/24 09:22 36.5 C 97 H 05/05/24 07:47 36.4 C L 69 20 05/05/24 07:06 83 18 BP Pulse Ox O2 Del Method 05/05/24 14:38 100 Nebulizer 05/05/24 14:27 96 Room Air 05/05/24 13:05 05/05/24 11:30 05/05/24 11:00 05/05/24 10:30 05/05/24 10:00 05/05/24 09:30 05/05/24 09:22 05/05/24 07:47 135/76 97 Room Air 05/05/24 07:06 95 Room Air Laboratory Results 05/05/24 06:40 05/05/24 06:40
[2024-05-05] MEDS: CARBOHYDRATES FOR HYPOGLYCEMIA PO PRN (20:24)
[2024-05-05] MEDS: LANTUS PER UNIT CHARGE SQ SCH (21:01)
[2024-05-06 08:12] LABS: BUN Creatinine Ratio 12.1 (10-20); Calcium 8.1 mg/dl (8.6-10.3); Creatinine Clr Calc Pharmacy 16.8 ml/min; Potassium 3.8 mmol/L (3.5-5.1)
[2024-05-06 08:31] LABS: INR 1.3 (0.9-1.1); Prothrombin Time 13.9 Seconds (9.0-12.0)
--- NOTE | 2024-05-06 09:53 | Nephrology Progress Note ---
Date of Service May 06, 2024 Assessment & Plan Admission and Anticipated Discharge Date Admission Date: May 03, 2024 Subjective Assessment & Plan (1) ESRD (end stage renal disease) on dialysis: Plan: ESRD on MWF HD via TDC on site at [facility] for routine tx later today as she needs isolation. 3k bath given k of 3.8 will give 10K epo on HD -hgb 9.7 (2) Acute hypoxemic respiratory failure: Plan: Seems better and is on RA now continue 1.2 L fluid limit as she is oligoanuric and has volume overload (3) Hypotension: Plan: h/o presume ischemic HF >> worse hypotension recently; but improving today; did have midodrine w/ tx today >consider TTE >continue midodrine w/ HD Subjective Feels better. Now on RA. Dialysis for later today. Review of Systems Review of Systems: All systems reviewed & are unremarkable except as noted in Subjective Physical Exam Constitutional: well developed, well nourished, + frail appearing and cooperative; no acute distress Eyes: EOM intact bilaterally and + periorbital abnormality (periorbital edema) ENMT: Mouth: + dry oral mucous membranes Respiratory: normal respiratory effort Auscultation: + diminished lung sounds Cardiovascular: Rate/Rhythm: regular rate and regular rhythm Heart Sounds: + murmur Extremities: no edema Gastrointestinal (Abdomen): Inspection/Auscultation: normal bowel sounds Percussion/Palpation: abdomen soft; abdomen nontender Musculoskeletal: Extremities: + abnormal strength Skin: no rashes, warm and dry Psychiatric: Orientation: alert (but arouseable) and oriented x 3 Results & Data Vital Signs (Past 12 Hours) Vital Signs Temp Pulse Pulse Pulse Resp BP BP 05/06/24 07:34 36.6 C 73 16 129/74 05/06/24 07:09 67 18 05/06/24 03:45 71 18 05/06/24 02:51 36.8 C 73 18 127/67 05/06/24 00:00 91 H 05/05/24 23:38 74 18 05/05/24 23:19 36.8 C 99 H 18 112/66 Pulse Ox O2 Del Method 05/06/24 07:34 99 Room Air 05/06/24 07:09 99 Room Air 05/06/24 03:45 93 Room Air 05/06/24 02:51 97 Nasal Cannula 05/06/24 00:00 05/05/24 23:38 94 Room Air 05/05/24 23:19 95 Nasal Cannula
[2024-05-06] MEDS: predniSONE 20 MG TAB PO SCH (10:30)
[2024-05-06] MEDS: HEPARIN SOD (PORCINE) 1000 UNIT/ML IV ONE (11:44)
[2024-05-06] MEDS: SODIUM CHLOR 7% 4 ML NEB NEB SCH (12:58)
[2024-05-06] MEDS: HEPARIN SOD (PORCINE) 1000 UNIT/ML IV SCH (14:25)
[2024-05-06] MEDS: EPOETIN ALFA 10,000 UNITS/ML VIAL IV ONE (15:03)
[2024-05-06] MEDS: fentaNYL 25 MCG/HR TDSY TD SCH (16:34)
[2024-05-06] MEDS: CHECK fentaNYL PATCH PLACEMENT SCH (17:08)
--- NOTE | 2024-05-06 21:11 | Hospitalist Progress Note ---
Date of Service May 06, 2024 Assessment & Plan (1) Pneumonia: Plan: b/l - as seen on 05/04 CXR could be all due to parainfluenza, but certainly could be bacterial at risk of gram negative pathogens due to SNF living, recent hospital stay early 04/2024, ESRD, etc. day #3 of IV cefepime - renally dosed clinically stable and improving weaned off supplemental O2 could switch to PO levaquin tomorrow to complete her course (2) Acute bronchitis due to parainfluenza virus: Plan: improving cont steroids - changed to PO prednisone 40mg daily starting today cont scheduled nebs; add saline nebs BID as well cont mucolytics cont tessalon TID cont pulm toilet (3) Sepsis: Plan: 2nd to #1, #2 resolved blood cx's negative (4) Parainfluenza type 1 infection: Plan: tested positive 04/28 when seen in ED procal 0.59 on 04/28 -> thus discharged back to [facility] on Cefdinir, doxycycline, prednisone taper blood cultures from 04/28 showed no growth see above re: cxr findings, possible complicating bacterial pneumonia cont other supportive care (5) Hypotension: Plan: 2nd to sepsis from #1, #2 resolved cont Midodrine before dialysis treatments (6) ESRD (end stage renal disease) on dialysis: Plan: follows with [facility] nephrology HD schedule MWF appreciate [facility] nephrology's assistance for HD needs Continue Velphoro Continue calcium acetate Midodrine before dialysis hold torsemide & Entresto in light of #5 day #3 of serial HD sessions today (7) Hyperglycemia due to type 2 diabetes mellitus: Plan: Typically controlled on lantus 10 U HS and SSI at [facility] Most recent A1C 7.0% Had been severely uncontrolled when on IV steroids BSGs improved with weaning of the steroids cont lantus at double dose of 10 units BID no changes to novolog parameters today (8) Elevated troponin: Plan: peak HS trop 31.9 likely secondary to ESRD and/or myocardial demand ischemia from her sepsis/respiratory infection no evidence of ACS (9) Acute diarrhea: Plan: x 3 weeks with recent antibiotic use resolved was on large dose of Colestipol 2gm TID which was likely started at [facility] sometime last few weeks no significant stooling during the stay will hold colestipol moving forward (10) Thrombocytopenia: Plan: b12/folate both wnl likely sepsis-associated thrombocytopenia as platelet count now normal Plan Chronic stable diagnoses: CAD - continue statin hypothyroidism - continue levothyroxine; TSH 3 chronic pain - continue morphine prn; pt agreeable to resuming fentanyl patch albeit at lower dose of 25mcg q3d; will wean over several weeks at her request VTE ppx: heparin 5000 BID Mildly elevated INR - no change with vit K supplementation 5mg last 2 CT a/p imaging showed cirrhosis of liver this is the likely cause of the elevated INR suspect with her obesity she has JADE suspect we can d/c her back to SNF tomorrow on 05/07/24 Admission and Anticipated Discharge Date Admission Date: May 03, 2024 Subjective tele overnight largely wnl patient overall feels much better still with cough and still with some sputum but improved still with wheezing but improved some chest congestion and does think there is mucous in the lungs to have HD today for 3rd straight day patient is uncertain about the large dose of colestipol she is on (2gm TID) did have small stool overnight but no diarrhea we discussed having her go back on fentanyl patch albeit at lower dose of 25mcg and weaning SLOWLY over a few weeks to prevent narcotic withdrawal (she had requested early in the admission to simply stop it) Review of Systems Review of Systems: gen - no fevers; eating well cv - no chest pain, no orthopnea pulm - no dyspnea at rest; fits of cough/congestion/wheezing Physical Exam Physical Exam: gen - laying in bed, NAD, looks good but does continue to cough (bronchial, wheezy cough) neck - no JVD mouth - MMM heart - RRR, s1 s2, 2/6 holosystolic murmur RUSB/apex lungs - wheezing b/l - maybe slightly better than previous, no increased work of breathing abd - soft NT ND BS+ ext - no edema, pulses 2+ b/l feet musculo - foot & distal leg deformity on right, right leg is shorter than left leg psych - a/o x 3 Results & Data Results & Data Vital Signs (Past 12 Hours) Vital Signs Temp Pulse Pulse Resp BP BP BP 05/06/24 19:43 72 17 05/06/24 19:24 36.7 C 72 16 145/77 H 05/06/24 16:05 36.5 C 78 146/55 H 05/06/24 15:30 65 115/61 05/06/24 15:04 71 05/06/24 15:00 68 144/76 H 05/06/24 14:30 69 120/66 05/06/24 14:00 66 113/61 05/06/24 13:30 75 124/72 05/06/24 12:56 36.8 C 78 05/06/24 10:58 36.5 C 85 18 126/69 05/06/24 10:56 86 18 Pulse Ox O2 Del Method 05/06/24 19:43 98 Room Air 05/06/24 19:24 98 Room Air 05/06/24 16:05 05/06/24 15:30 05/06/24 15:04 05/06/24 15:00 05/06/24 14:30 05/06/24 14:00 05/06/24 13:30 05/06/24 12:56 05/06/24 10:58 97 Room Air 05/06/24 10:56 96 Room Air Laboratory Results Laboratory Results - last 24 hr 05/06/24 05/06/24 05/06/24 07:13 07:19 10:40 PT 13.9 H INR 1.3 H Sodium 132 L Potassium 3.8 Chloride 96 L Carbon Dioxide 26 Anion Gap 10 BUN 39 H Creatinine 3.21 H Est Cr Clr Drug Dosing 16.8 eGFR 14.68 BUN/Creatinine Ratio 12.1 Glucose 133 H POC Glucose 132 H 91 Calcium 8.1 L 05/06/24 05/06/24 16:22 20:15 PT INR Sodium Potassium Chloride Carbon Dioxide Anion Gap BUN Creatinine Est Cr Clr Drug Dosing eGFR BUN/Creatinine Ratio Glucose POC Glucose 116 H 151 H Calcium PG Care Time/CCT Total # of Minutes Spent Total Time Spent with Patient: Total time spent is greater than 50% in coordination of care (as documented) at patient's floor/unit and/or counseling patient: Coding Level of Care Code 15221 SUB INP/OBS CARE 3/50MIN Diagnoses Pneumonia J18.9 Acute bronchitis due to parainfluenza virus J20.4 Sepsis A41.9 Parainfluenza type 1 infection B34.8 Hypotension I95.9 ESRD (end stage renal disease) on dialysis N18.6; Z99.2 Hyperglycemia due to type 2 diabetes mellitus E11.65 Elevated troponin R79.89 Acute diarrhea R19.7 Thrombocytopenia D69.6
[2024-05-07] MEDS: fentaNYL 25 MCG/HR TDSY TD SCH (06:13)
--- NOTE | 2024-05-07 10:37 | Hospitalist Progress Note ---
Date of Service May 07, 2024 Assessment & Plan (1) Pneumonia: Plan: b/l - as seen on 05/04 CXR could be all due to parainfluenza, but certainly could be bacterial at risk of gram negative pathogens due to SNF living, recent hospital stay early 04/2024, ESRD, etc. day #4 of IV cefepime - renally dosed clinically stable and improving weaned off supplemental O2 could switch to PO levaquin tomorrow to complete her course (2) Acute bronchitis due to parainfluenza virus: Plan: improving cont steroids - changed to PO prednisone 40mg daily starting 05/06 no wean today plan a wean every 3 days or so cont scheduled nebs cont saline nebs BID cont tessalon TID - increase to 200mg TID cont pulm toilet add robittusin AC for additional cough suppressant (3) Sepsis: Plan: 2nd to #1, #2 resolved blood cx's negative (4) Parainfluenza type 1 infection: Plan: tested positive 04/28 when seen in ED procal 0.59 on 04/28 -> thus discharged back to SNF on Cefdinir, doxycycline, prednisone taper blood cultures from 04/28 showed no growth see above re: cxr findings, possible complicating bacterial pneumonia cont other supportive care (5) Hypotension: Plan: 2nd to sepsis from #1, #2 resolved cont Midodrine before dialysis treatments (6) ESRD (end stage renal disease) on dialysis: Plan: follows with [facility] nephrology HD schedule MWF appreciate [facility] nephrology's assistance for HD needs Continue Velphoro Continue calcium acetate Midodrine before dialysis can resume torsemide & Entresto - probably tomorrow s/p 3 serial HD treatments this past week resume usual schedule on Thursday, 05/09 (7) Hyperglycemia due to type 2 diabetes mellitus: Plan: Typically controlled on lantus 10 U HS and SSI at [facility] Most recent A1C 7.0% Had been severely uncontrolled when on IV steroids BSGs improved with weaning of the steroids cont lantus at double dose of 10 units BID will make no changes to novolog parameters today (8) Elevated troponin: Plan: peak HS trop 31.9 likely secondary to ESRD and/or myocardial demand ischemia from her sepsis/respiratory infection no evidence of ACS (9) Acute diarrhea: Plan: x 3 weeks with recent antibiotic use resolved was on large dose of Colestipol 2gm TID which was likely started at SNF sometime last few weeks no significant stooling during the stay holding colestipol moving forward had 2 formed stools over the last 48 hours (10) Thrombocytopenia: Plan: b12/folate both wnl likely sepsis-associated thrombocytopenia as platelet count now normal Plan Chronic stable diagnoses: CAD - continue statin hypothyroidism - continue levothyroxine; TSH 3 chronic pain - continue morphine prn; pt agreeable to resuming fentanyl patch albeit at lower dose of 25mcg q3d; will wean over several weeks at her request VTE ppx: heparin 5000 BID Mildly elevated INR - no change with vit K supplementation 5mg last 2 CT a/p imaging showed cirrhosis of liver this is the likely cause of the elevated INR suspect with her obesity she has JADE patient didn't feel ready to return to SNF today will aim for tomorrow, 05/08 I let case management know Admission and Anticipated Discharge Date Admission Date: May 03, 2024 Subjective pt's main complaint is that of ongoing cough it is very annoying to her with that said it is improved relative to the time of admission no distress or dyspnea at rest cough largely dry with minimal sputum has not been out of bed since admission eating very well no diarrhea holding her colestipol she finally had a BM and the BM was normal in calibre Review of Systems Review of Systems: gen - no fevers or chills cv - no chest pain pulm - ongoing wheezing GI - no nausea/emesis Physical Exam Physical Exam: gen - laying in bed, NAD, looks well; minimal cough today neck - no JVD mouth - MMM heart - RRR, s1 s2, 2/6 holosystolic murmur RUSB/apex lungs - wheezing b/l; no rales; airation improved; no increased work of breathing abd - soft NT ND BS+ ext - no edema, pulses 2+ b/l feet Results & Data Results & Data Vital Signs (Past 12 Hours) Vital Signs Temp Pulse Pulse Pulse Resp BP BP 05/07/24 08:06 36.8 C 104 H 18 156/82 H 05/07/24 07:04 81 18 05/07/24 03:24 77 17 05/07/24 02:22 36.6 C 72 16 136/68 05/07/24 00:00 98 H 05/06/24 23:19 84 17 Pulse Ox O2 Del Method 05/07/24 08:06 95 Room Air 05/07/24 07:04 95 Room Air 05/07/24 03:24 96 Room Air 05/07/24 02:22 93 Room Air 05/07/24 00:00 05/06/24 23:19 97 Room Air Laboratory Results Laboratory Results - last 24 hr 05/06/24 05/06/24 05/06/24 10:40 16:22 20:15 POC Glucose 91 116 H 151 H 05/07/24 07:16 POC Glucose 177 H PG Care Time/CCT Total # of Minutes Spent Total Time Spent with Patient: Total time spent is greater than 50% in coordination of care (as documented) at patient's floor/unit and/or counseling patient: Coding Level of Care Code 68410 SUB INP/OBS CARE 2/35MIN Diagnoses Pneumonia J18.9 Acute bronchitis due to parainfluenza virus J20.4 Sepsis A41.9 Parainfluenza type 1 infection B34.8 Hypotension I95.9 ESRD (end stage renal disease) on dialysis N18.6; Z99.2 Hyperglycemia due to type 2 diabetes mellitus E11.65 Elevated troponin R79.89 Acute diarrhea R19.7 Thrombocytopenia D69.6
[2024-05-07] MEDS: guaiFENesin/CODEINE 100MG/10MG 5ML UDC PO PRN (12:37)
[2024-05-07] MEDS: COUGH DROP (SUGAR FREE) LOZ 24 LOZ/1 BOX BUCCAL PRN (12:37)
[2024-05-07] MEDS: BENZONATATE 100 MG CAPSULE PO SCH (13:21)
[2024-05-07] MEDS: ACETAMINOPHEN 325 MG TAB PO PRN (20:48)
[2024-05-08] MEDS: predniSONE 10 MG TABLET PO SCH (09:15)
--- NOTE | 2024-05-08 11:34 | Hospitalist Progress Note ---
Date of Service May 08, 2024 Assessment & Plan (1) Pneumonia: Plan: b/l - as seen on 05/04 CXR could be all due to parainfluenza, but certainly could be bacterial at risk of gram negative pathogens due to SNF living, recent hospital stay early 04/2024, ESRD, etc. day #5 of IV cefepime - renally dosed stop cefepime after today's dose then transition to levaquin tomorrow clinically stable and improving weaned off supplemental O2 sats high 90s in room air (2) Acute bronchitis due to parainfluenza virus: Plan: improving nicely cont steroids - changed to PO prednisone 40mg daily starting 05/06; will wean to 30mg today cont scheduled nebs cont saline nebs BID cont tessalon TID cont pulm toilet cont robittusin AC for additional cough suppressant (3) Sepsis: Plan: 2nd to #1, #2 resolved blood cx's negative (4) Parainfluenza type 1 infection: Plan: with resulting bronchitis improving tested positive 04/28 when seen in ED see above re: cxr findings, possible complicating bacterial pneumonia cont other supportive care (5) Hypotension: Plan: 2nd to sepsis from #1, #2 resolved cont Midodrine before dialysis treatments (6) ESRD (end stage renal disease) on dialysis: Plan: follows with [facility] nephrology HD schedule MWF appreciate [facility] nephrology's assistance for HD needs Continue Velphoro Continue calcium acetate Midodrine before dialysis can resume torsemide & Entresto - probably tomorrow s/p 3 serial HD treatments this past week resume usual schedule on Thursday, 05/09 (7) Hyperglycemia due to type 2 diabetes mellitus: Plan: Typically controlled on lantus 10 U HS and SSI at [facility] Most recent A1C 7.0% Had been severely uncontrolled when on IV steroids BSGs improved with weaning of the steroids cont lantus at double dose of 10 units BID resume usual lantus/novolog at d/c (8) Elevated troponin: Plan: peak HS trop 31.9 likely secondary to ESRD and/or myocardial demand ischemia from her sepsis/respiratory infection no evidence of ACS (9) Acute diarrhea: Plan: x 3 weeks with recent antibiotic use resolved was on large dose of Colestipol 2gm TID which was likely started at SNF sometime last few weeks no significant stooling during the stay holding colestipol moving forward had 2 formed stools over the last few days no diarrhea (10) Thrombocytopenia: Plan: b12/folate both wnl likely sepsis-associated thrombocytopenia as platelet count now normal Plan Chronic stable diagnoses: CAD - continue statin hypothyroidism - continue levothyroxine; TSH 3 chronic pain - continue morphine prn; pt agreeable to resuming fentanyl patch albeit at lower dose of 25mcg q3d; will wean over several weeks at her request VTE ppx: heparin 5000 BID Mildly elevated INR - no change with vit K supplementation 5mg last 2 CT a/p imaging showed cirrhosis of liver this is the likely cause of the elevated INR suspect with her obesity she has JADE was ready for d/c today but no transportation back to SNF thus, no discharge today; hopefully tomorrow can d/c tele; move to med/surg Admission and Anticipated Discharge Date Admission Date: May 03, 2024 Subjective only complaint is that of cough primarily dry also with ulcers in her mouth for 2-3 weeks no diarrhea eating very well no dyspnea attempted to get her discharged back to SNF today -- unfortunately no transportation available for such thus she was not discharged Review of Systems Review of Systems: cv - no chest pain, no edema, no orthopnea pulm - some sputum after nebs, otherwise dry; no dyspnea Physical Exam Physical Exam: gen - laying in bed, NAD, looks very good today neck - no JVD mouth - MMM but ulcers on roof of mouth; no obvious thrush, however heart - RRR, s1 s2, 2/6 holosystolic murmur RUSB/apex lungs - mild wheezing b/l; no rales; airation improved; no increased work of breathing abd - soft NT ND BS+ ext - no edema, pulses 2+ b/l feet Results & Data Results & Data Vital Signs (Past 12 Hours) Vital Signs Temp Pulse Pulse Resp BP BP Pulse Ox 05/08/24 11:15 68 16 95 05/08/24 10:43 36.6 C 71 19 150/69 H 98 05/08/24 10:20 05/08/24 08:10 36.7 C 94 H 22 165/82 H 165/82 H 05/08/24 07:07 77 16 96 05/08/24 07:03 84 05/08/24 02:43 79 17 97 05/08/24 01:49 36.6 C 111 H 21 166/92 H 97 05/07/24 23:47 77 17 97 O2 Del Method 05/08/24 11:15 Room Air 05/08/24 10:43 Room Air 05/08/24 10:20 Room Air 05/08/24 08:10 05/08/24 07:07 Room Air 05/08/24 07:03 05/08/24 02:43 Room Air 05/08/24 01:49 Room Air 05/07/24 23:47 Room Air Laboratory Results Laboratory Results - last 24 hr 05/07/24 05/07/24 05/07/24 11:42 16:16 20:22 POC Glucose 164 H 198 H 298 H 05/08/24 05/08/24 07:25 11:08 POC Glucose 177 H 206 H PG Care Time/CCT Total # of Minutes Spent Total Time Spent with Patient: Total time spent is greater than 50% in coordination of care (as documented) at patient's floor/unit and/or counseling patient: Coding Level of Care Code 04210 SUB INP/OBS CARE 2/35MIN Diagnoses Pneumonia J18.9 Acute bronchitis due to parainfluenza virus J20.4 Sepsis A41.9 Parainfluenza type 1 infection B34.8 Hypotension I95.9 ESRD (end stage renal disease) on dialysis N18.6; Z99.2 Hyperglycemia due to type 2 diabetes mellitus E11.65 Elevated troponin R79.89 Acute diarrhea R19.7 Thrombocytopenia D69.6
[2024-05-08] MEDS: FIRST - Mouthwash BLM 5 ML UDP PO SCH (14:06)
[2024-05-08] MEDS: NYSTATIN SUSP 500,000 U/5 ML UDC PO SCH (16:05)
[2024-05-09 09:15] LABS: Calcium 8.6 mg/dl (8.6-10.3); Creatinine Clr Calc Pharmacy 10.7 ml/min; Potassium 4.5 mmol/L (3.5-5.1)
[2024-05-09] MEDS: EPOETIN ALFA 10,000 UNITS/ML VIAL IV ONE (15:12)
--- NOTE | 2024-05-09 18:27 | Hospitalist Progress Note ---
Date of Service May 09, 2024 Assessment & Plan (1) Pneumonia: Plan: b/l - as seen on 05/04 CXR at risk of gram negative pathogens due to SNF living, recent hospital stay early 04/2024, ESRD, etc. received 5 days of cefepime - now stopped give levaquin 750mg x 1 after HD today then give levaquin 500mg x 1 after her HD session on 05/11/24 (she dialyzes at [facility]) clinically stable and improving weaned off supplemental O2 sats high 90s in room air repeat a cxr in 1 month to ensure radiographic resolution (2) Acute bronchitis due to parainfluenza virus: Plan: improving cont steroids - changed IV steroids to PO prednisone 40mg daily starting 05/06 weaned to 30mg on 05/08/24 wean to 20mg on 05/11/24 --- and so forth cont scheduled nebs cont saline nebs BID cont tessalon TID cont pulm toilet cont robittusin AC prn for additional cough suppressant added breo 1 puff daily x 1 month then stop (3) Sepsis: Plan: 2nd to #1, #2 resolved blood cx's negative (4) Parainfluenza type 1 infection: Plan: with resulting bronchitis improving tested positive 04/28 when seen in ED see above re: cxr findings, possible complicating bacterial pneumonia cont other supportive care (5) Hypotension: Plan: 2nd to sepsis from #1, #2 resolved cont Midodrine before dialysis treatments (6) ESRD (end stage renal disease) on dialysis: Plan: follows with [facility] nephrology HD schedule MWF appreciate [facility] nephrology's assistance for HD needs Continue Velphoro Continue calcium acetate Midodrine before dialysis can resume torsemide & Entresto at discharge s/p 3 serial HD treatments this past week to have HD here at [facility] today, Tuesday 05/09 (7) Hyperglycemia due to type 2 diabetes mellitus: Plan: Typically controlled on lantus 10 U HS and SSI at [facility] Most recent A1C 7.0% Had been severely uncontrolled when on IV steroids BSGs improved with weaning of the steroids cont lantus at double dose of 10 units BID then cut back to usual dose of 10 units/day upon return to [facility] She is also on sliding scale novolog at [facility] (8) Elevated troponin: Plan: peak HS trop 31.9 likely secondary to ESRD and/or myocardial demand ischemia from her sepsis/respiratory infection no evidence of ACS (9) Acute diarrhea: Plan: had such for 3 weeks prior to admission was on large dose of Colestipol 2gm TID which was likely started at SNF sometime last few weeks upon admission here had not stooled in several days colestipol HELD has now had multiple formed stools over the last few days I made the colestipol PRN upon return to SNF (10) Thrombocytopenia: Plan: b12/folate both wnl likely sepsis-associated thrombocytopenia as platelet count now normal (11) Elevated INR: Plan: Mildly elevated INR - no change with vit K supplementation 5mg x [address] a/p imaging showed cirrhosis of liver this is the likely cause of the elevated INR suspect with her obesity she has JADE consider outpatient GI f/u for this Plan Chronic stable diagnoses: CAD - continue statin hypothyroidism - continue levothyroxine; TSH 3 chronic pain - continue morphine prn; pt agreeable to resuming fentanyl patch albeit at lower dose of 25mcg q3d; will wean over several weeks at her request VTE ppx: heparin 5000 BID was ready for d/c today but SNF told our case management office they could not provide her regular HD treatment they asked we dialyze today at [facility] thus, no discharge today but can d/c to [facility] on 05/10/24 Admission and Anticipated Discharge Date Admission Date: May 03, 2024 Subjective no new complaints still with cough -- but no worse than prior, and much better in comparison to admission eating very well - 100% of meals no diarrhea had large BM today no dyspnea magic mouthwash helping her oral ulcers Review of Systems Review of Systems: CV - no chest pain or tightness pulm - no dyspnea; ongoing wheezing GI - no abd pain or N/V Physical Exam Physical Exam: gen - laying in bed, NAD, looks well neck - no JVD mouth - MMM but ulcers on roof of mouth; no obvious thrush, however; very poor dentition with broken/decayed teeth heart - RRR, s1 s2, 2/6 holosystolic murmur RUSB/apex lungs - mild wheezing b/l; no rales; airation normal; no increased work of breathing abd - soft NT ND BS+ ext - no edema, pulses 2+ b/l feet Results & Data Results & Data Vital Signs (Past 12 Hours) Vital Signs Temp Pulse Pulse Pulse Resp BP BP 05/09/24 18:00 60 138/69 05/09/24 17:30 61 122/70 05/09/24 17:00 61 112/64 05/09/24 16:30 61 109/57 L 05/09/24 16:00 61 104/61 05/09/24 15:30 64 123/53 L 05/09/24 15:00 67 137/81 05/09/24 14:45 64 102/80 05/09/24 11:05 78 20 05/09/24 10:34 05/09/24 08:40 70 20 05/09/24 07:29 36.5 C 68 16 132/75 Pulse Ox O2 Del Method 05/09/24 18:00 05/09/24 17:30 05/09/24 17:00 05/09/24 16:30 05/09/24 16:00 05/09/24 15:30 05/09/24 15:00 05/09/24 14:45 05/09/24 11:05 96 Room Air 05/09/24 10:34 Room Air 05/09/24 08:40 99 Room Air 05/09/24 07:29 100 Room Air Laboratory Results Laboratory Results - last 24 hr 05/09/24 05/09/24 05/09/24 07:53 08:35 11:17 Sodium 124 L Potassium 4.5 Chloride 89 L Carbon Dioxide 26 Anion Gap 9 BUN 75 H Creatinine 5.01 H* Est Cr Clr Drug Dosing 10.7 eGFR 8.60 BUN/Creatinine Ratio 15.0 Glucose 151 H POC Glucose 160 H 157 H Calcium 8.6 05/09/24 05/09/24 18:39 20:42 Sodium Potassium Chloride Carbon Dioxide Anion Gap BUN Creatinine Est Cr Clr Drug Dosing eGFR BUN/Creatinine Ratio Glucose POC Glucose 98 163 H Calcium PG Care Time/CCT Total # of Minutes Spent Total Time Spent with Patient: Total time spent is greater than 50% in coordination of care (as documented) at patient's floor/unit and/or counseling patient: Coding Level of Care Code 01262 SUB INP/OBS CARE 3/50MIN Diagnoses Pneumonia J18.9 Acute bronchitis due to parainfluenza virus J20.4 Sepsis A41.9 Parainfluenza type 1 infection B34.8 Hypotension I95.9 ESRD (end stage renal disease) on dialysis N18.6; Z99.2 Hyperglycemia due to type 2 diabetes mellitus E11.65 Elevated troponin R79.89 Acute diarrhea R19.7 Thrombocytopenia D69.6 Elevated INR R79.1
[2024-05-09] MEDS: ALBUT/IPRATROP 3MG/0.5MG NEB 3 ML VIAL NEB SCH (19:36)
[2024-05-09 19:37] VITALS: RESP 18
[2024-05-09] MEDS: levoFLOXacin 750 MG TAB PO ONE (21:49)
[2024-05-09] MEDS: FLUTICASONE/VILANTEROL 100/25MCG 14 PUFFS/INHALER INH SCH (21:50)
[2024-05-10 07:12] LABS: BUN Creatinine Ratio 12.6 (10-20); Calcium 8.3 mg/dl (8.6-10.3); Potassium 4.7 mmol/L (3.5-5.1)
[2024-05-10 07:35] VITALS: BP 148/72; TEMP 98.4
--- NOTE | 2024-05-10 09:00 | Discharge Summary ---
Discharge Summary Date of Service May 10, 2024 Principal Dx & Hospital Course #1 = Principal Diagnosis (1) Pneumonia: b/l - as seen on 05/04 CXR at risk of gram negative pathogens due to SNF living, recent hospital stay early 04/2024, ESRD, etc. received 5 days of cefepime - now stopped give levaquin 750mg x 1 after HD today then give levaquin 500mg x 1 after her HD session on 05/11/24 (she dialyzes at [facility]) clinically stable and improving weaned off supplemental O2 sats high 90s in room air repeat a cxr in 1 month to ensure radiographic resolution (2) Acute bronchitis due to parainfluenza virus: improving tested positive on 04/28 in ED. cont steroids - changed IV steroids to PO prednisone 40mg daily starting 05/06, taper on discharge. added breo 1 puff daily x 1 month then stop (3) Sepsis: 2nd to #1, #2 resolved blood cx's negative (4) Hypotension: 2nd to sepsis from #1, #2 resolved cont Midodrine before dialysis treatments (5) ESRD (end stage renal disease) on dialysis: follows with [facility] nephrology HD schedule MWF appreciate [facility] nephrology's assistance for HD needs Continue Velphoro Continue calcium acetate Midodrine before dialysis can resume torsemide & Entresto at discharge s/p 3 serial HD treatments this past week (6) Hyperglycemia due to type 2 diabetes mellitus: Typically controlled on lantus 10 U HS and SSI at [facility] Most recent A1C 7.0% Had been severely uncontrolled when on IV steroids BSGs improved with weaning of the steroids cont lantus at double dose of 10 units BID then cut back to usual dose of 10 units/day upon return to [facility] She is also on sliding scale novolog at [facility] (7) Elevated troponin: peak HS trop 31.9 likely secondary to ESRD and/or myocardial demand ischemia from her sepsis/respiratory infection no evidence of ACS (8) Acute diarrhea: had such for 3 weeks prior to admission was on large dose of Colestipol 2gm TID which was likely started at [facility] sometime last few weeks upon admission here had not stooled in several days colestipol HELD has now had multiple formed stools over the last few days colestipol PRN upon return to [facility] (9) Thrombocytopenia: b12/folate both wnl likely sepsis-associated thrombocytopenia as platelet count now normal (10) Elevated INR: Mildly elevated INR - no change with vit K supplementation 5mg x [address] a/p imaging showed cirrhosis of liver this is the likely cause of the elevated INR suspect with her obesity she has JADE consider outpatient GI f/u for this Plan Chronic stable diagnoses: CAD - continue statin hypothyroidism - continue levothyroxine; TSH 3 chronic pain - continue morphine prn; pt agreeable to resuming fentanyl patch albeit at lower dose of 25mcg q3d; will wean over several weeks at her request Discharged to [facility] 05/10/2024. 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 She presents today due to ongoing symptoms of dyspnea at rest, cough, yellow sputum production, rhinorrhea, body aches, chills for 1 week. She has also had diarrhea for the past 3 weeks. She was recently discharged from the hospital 04/09 due to fever of unknown origin, she was treated with cefepime and Vanco which was then transitioned to oral Augmentin on discharge. She presented back to the ER 04/28 due to the flulike symptoms in which she tested positive for parainfluenza virus. She had a mildly elevated procalcitonin at this time and blood cultures were drawn. She was sent back to [facility] with cefdinir and doxycycline x7 days, Along with a 4-day course of 60 mg prednisone. She presented back to the ER today due to ongoing symptoms. She has been taking her antibiotics and steroid as scheduled. Her diarrhea has mildly improved but she still is multiple episodes a day. She also had dialysis yesterday. She follows with [facility]. Patient denies headache, dizziness, lightheadedness, chest pain, abdominal pain, nausea, vomiting, edema, numbness, tingling. She have a history of hypotensive session during dialysis; she was receiving midodrine during hemodialysis during recent admission while holding torsemide. she does not use nicotine or drink alcohol. She denies past history of CA or VTE. She does not use oxygen at baseline. She took her home medications this morning. She is on 10 units Lantus at bedtime for diabetes along with sliding scale insulin that is managed [facility]. She wishes to be DNR/DNI. Discharge Exam Constitutional WD/WN, vitals as above Eyes PERRL, conjunctivae normal, anicteric sclerae Psychiatric A+Ox3, euthymic affect Discharge Plan Discharge Items Patient Disposition: Transfer Halfway Fac Reason For Visit: PARAINFLUENZA, ESRD Discharge Diagnosis: 1. acute bronchitis due to parainfluenza virus 2. probable bacterial pneumonia 3. diabetes 4. ESRD on dialysis - Thu/Thu/Thursday 5. sepsis due to #1, #2 - resolved 6. thrombocytopenia - due to sepsis? - resolved 7. acute respiratory failure due to #1, #2 - resolved 8. oral ulcers 9. hypothyroidism 10. high blood pressure 11. CAD 12. chronic pain syndrome on narcotics 13. diarrhea - resolved 14. elevated INR - chronic - previous CT abd/pelvis imaging showed cirrhosis; consider outpatient GI follow-up Activity: Resume your previous activity Non-emergency contact: Primary Care Provider and Direct Customer Service Representative Call non-emergency contact if: you have any medication questions, your symptoms worsen and you have a fever Follow-up/Referrals: Florencio Osborn III, MD [Primary Care Provider] - Gudelia Benedict MD, PhD [Physician] - (1-2 weeks) Diet: Carb Consistent or DM2 and Dialysis Renal Fluids: 1500ml (6 cups) Addtl Attending Provider Instructions: Ms Manriquez was hospitalized due to acute bronchitis from parainfluenza virus. In addition she was treated for bacterial pneumonia as seen on chest x-ray. Oxygen was weaned off several days before discharge. She received 3 serial hemodialysis treatments during the stay, managed by [facility]. Ms Manriquez reported 3 weeks of diarrhea but she had none while hospitalized. In fact she was the opposite - she had constipation until colestipol was discontinued. Following removal of colestipol she had a normal, soft bowel movement. Finally, Ms Manriquez expressed a desire to get off fentanyl patch. She wanted to "cold turkey" the medicine but I suggested weaning it off to avoid withdrawal. Thus, we lowered her fentanyl patch to 25mcg q3days. She has done well on the lower dose of fentanyl. Recommendations - 1. BSGs ac/hs 2. CBC, BMP in 5 days for stability 3. incentive spirometer or flutter valve - whatever is available - as much as possible over the next week to promote resolution of her respiratory illness 4. repeat chest x-ray in 4-6 weeks to ensure radiographic resolution of her pneumonia It was our pleasure to care for Ms Manriquez! -Dr Quiroz Pending Studies at Discharge: No Stand-Alone Forms: My [facility] Skilled Items Patient informed of condition?: Yes DNR: Yes Discharge Level of Care: Skilled Communicable Disease: Yes (parainfluenza virus ) Discharge Prognosis: Stable Lines: None Urinary Catheter: No Medications and DC Order Prescriptions: New sodium chloride 7 % Solution For Nebulization 4 ml NEB BID Qty: 120 0RF Rx Instructions: use for 7 days scheduled then PRN thereafter. benzonatate 100 mg Capsule 200 mg PO TID 5 Days Qty: 30 0RF codeine-guaifenesin [Guaifenesin AC] 10-100 mg/5 mL Liquid 5 ml PO Q6H PRN (Reason: cough) Qty: 120 0RF levofloxacin 500 mg tablet 500 mg PO ONCE Qty: 1 0RF Rx Instructions: give on 05/11/2024 after hemodialysis. Magic Mouthwash 300 mL mouthwash 5 ml mucous membrane QID 7 Days Qty: 300 0RF Rx Instructions: Benadryl 12.5 mg/5 mL oral elixir; Maalox 200 mg-200 mg-20 mg/5 mL oral suspension; Xylocaine Viscous 2 % mucosal solution;[Generic substitution ok] 1:1:1 compound Per 300 mL. SWISH and SPIT. Do not swallow. nystatin 100,000 unit/mL suspension 5 ml PO QID 7 Days Qty: 140 0RF Rx Instructions: swish and spit fluticasone furoate-vilanterol [Breo Ellipta] 100-25 mcg/dose Blister With Device 1 inh inhalation DAILY 30 Days Qty: 1 0RF prednisone 10 mg Tablet 10 mg PO DIRECTED Qty: 9 0RF Rx Instructions: start 05/11, take with food. 2 tabs PO QD x 3 days; 1 tab PO QD x 3 days. Continued multivitamin Tablet 1 tab PO HS sennosides-docusate sodium [Senokot-S] 8.6-50 mg Tablet 1 tab-cap PO BID polyethylene glycol 3350 [Miralax] 17 gram/dose Powder 17 g PO BID cholecalciferol (vitamin D3) [Vitamin D3] 125 mcg (5,000 unit) Tablet 125 mcg PO HS bisacodyl [Dulcolax (bisacodyl)] 10 mg Suppository 10 mg MO DAILY PRN (Reason: Constipation) Rx Instructions: GIVE DAY 3 IF NO BM FOLLOWING MOM Fleet Enema 19-7 gram/118 mL Enema 118 ml MO UD PRN (Reason: Constipation) Rx Instructions: IF NO BM FOLLOWING DULCOLAX calcium acetate(phosphat bind) 667 mg Tablet 667 mg PO DAILY PRN (Reason: Snacks) Rx Instructions: Give 1 tablet (667mg) by mouth, daily, as needed with snacks atorvastatin 80 mg tablet 80 mg PO HS acetaminophen [Tylenol] 325 mg Tablet 650 mg PO Q6 MDD 3gmAPAP/24hr PRN (Reason: Fever) Rx Instructions: GIVE FOR TEMP >100, pantoprazole 40 mg tablet,delayed release (DR/EC) 40 mg PO BID gabapentin 100 mg capsule 100 mg PO TID insulin glargine [Lantus U-100 Insulin] 100 unit/mL solution 10 unit SUBCUT HS Velphoro 500 mg tablet,chewable 500 mg PO TIDWMEAL Rx Instructions: W/FIRST BITE OF FOOD levothyroxine 175 mcg Tablet 175 mcg PO HS torsemide 20 mg tablet 120 mg PO 2XWK Rx Instructions: Tues/Sat ondansetron HCl 4 mg tablet 4 mg PO Q6H PRN (Reason: Nausea And Vomiting) ondansetron HCl 4 mg tablet 4 mg PO 3XWK Rx Instructions: Mon/Wed/Fri vitamin B complex Tablet 1 tab PO HS calcium acetate(phosphat bind) 667 mg Capsule 1,334 mg PO TIDWMEAL protein supplement Liquid 1 ea PO UD Rx Instructions: Take 30ml once daily on Mon/Wed/Fri diclofenac sodium 1 % Gel 2 g TOPICAL QID Velphoro 500 mg tablet,chewable 500 mg PO DAILY PRN (Reason: W/Snacks) sacubitril-valsartan [Entresto] 24-26 mg tablet 1 tab PO QPM Artificial Tears (cmc) 1 % Drops 2 drp OPB BID bacitracin 500 unit/gram Packet 1 applic TOPICAL DAILY Rx Instructions: APPLY TO R UPPER ARM DAILY ON 7-3 SHIFT, CLEANSE WITH NSS, APPLY BACITRACIN, AND COVER WITH BORDERED GAUZE. insulin lispro [Humalog U-100 Insulin] 100 unit/mL solution See Rx Instructions .ROUTE .COMPLEX Rx Instructions: INJECT PER SLIDING SCALE: 150-200=2 units, 201-250=4 units, 250- 300=8UNITS, 301-350=12UNITS, 351-400 = 16 units, 401-1000 = 18 units then recheck in 1 hour. Report CSG's <70 or >401 to MD/NIGHT WAREHOUSE MANAGER, TIDM AND BEDTIME Saccharomyces boulardii [Florastor] 250 mg Capsule 250 mg PO BID morphine concentrate 100 mg/5 mL (20 mg/mL) solution 10 mg PO 3XWK Qty: 30 0RF Rx Instructions: Mon/Wed/Fri morphine concentrate 100 mg/5 mL (20 mg/mL) solution 10 mg PO Q4H PRN (Reason: Pain) Qty: 30 0RF midodrine 10 mg tablet 10 mg PO 3XWK Qty: 0 0RF Rx Instructions: Mon/Wed/Fri prior to dialysis ipratropium-albuterol 0.5 mg-3 mg(2.5 mg base)/3 mL solution for nebulization 3 ml INHALATION QID Qty: 0 0RF ipratropium-albuterol 0.5 mg-3 mg(2.5 mg base)/3 mL solution for nebulization 3 ml INHALATION Q2H PRN (Reason: Shortness Of Breath Or Wheezing) Qty: 0 0RF Changed fentanyl 25 mcg/hr patch 72 hour 1 patch transdermal Q72H Qty: 5 0RF colestipol 1 gram tablet 1 g PO BID PRN (Reason: diarrhea) Qty: 0 0RF Discontinued cefdinir 300 mg capsule 300 mg PO .MWF 7 Days Qty: 4 0RF Rx Instructions: BEGIN 04/29/24, END 05/06/24, 300 mg, 3 times per week after hemodialysis sessions. doxycycline hyclate 100 mg tablet 100 mg PO BID 7 Days Qty: 14 0RF Rx Instructions: BEGIN 04/28/24, END 05/05/24 prednisone 10 mg Tablet 10 mg PO QAM Rx Instructions: BEGIN 05/09/24, END 05/11/24 prednisone 20 mg Tablet 20 mg PO QAM Rx Instructions: BEGIN 05/07/24, END 05/09/24 prednisone 10 mg Tablet 30 mg PO QAM Rx Instructions: BEGIN 05/05/24, END 05/07/24 prednisone 20 mg Tablet 40 mg PO QAM Rx Instructions: BEGIN 05/03/24, END 06/28 Discharge Orders: Discharge Order (Routine); Ordered 05/10/24 Ordered By: Tyesha Aggarwal Admission Data Admit Date/Time: 05/03/24 15:23 Attending Provider: Antonino Lopes Admit Provider: Lalit Quiroz Primary Care Provider: Florencio Osborn III Other Providers: Lalit Quiroz; Gerson Paulson Other Interventions: Discharge Summary Assessment (RN) Last Done: 05/10/24 13:52 Hospital Stay Data Consultations 05/03/24 14:12 ED Decision to Admit Stat 05/03/24 15:24 Consult Nephrology Routine Pending Results Patient Have Any Pending Studies at Discharge: No Discharge Instructions Given to Patient (Per Discharging Provider) Ms Manriquez was hospitalized due to acute bronchitis from parainfluenza virus. In addition she was treated for bacterial pneumonia as seen on chest x-ray. Oxygen was weaned off several days before discharge. She received 3 serial hemodialysis treatments during the stay, managed by [facility]. Ms Manriquez reported 3 weeks of diarrhea but she had none while hospitalized. In fact she was the opposite - she had constipation until colestipol was discontinued. Following removal of colestipol she had a normal, soft bowel movement. Finally, Ms Manriquez expressed a desire to get off fentanyl patch. She wanted to "cold turkey" the medicine but I suggested weaning it off to avoid withdrawal. Thus, we lowered her fentanyl patch to 25mcg q3days. She has done well on the lower dose of fentanyl. Recommendations - 1. BSGs ac/hs 2. CBC, BMP in 5 days for stability 3. incentive spirometer or flutter valve - whatever is available - as much as possible over the next week to promote resolution of her respiratory illness 4. repeat chest x-ray in 4-6 weeks to ensure radiographic resolution of her pneumonia It was our pleasure to care for Ms Manriquez! -Dr Quiroz Total Time Total Time Spent Total Time Spent (In Minutes): 40 Total Time Includes: Examination of the Patient, Discharge Planning and Medication Reconciliation Coding Level of Care Code 77281 INP/OBS DISCH >30 MIN Diagnoses Pneumonia J18.9 Acute bronchitis due to parainfluenza virus J20.4 Sepsis A41.9 Hypotension I95.9 ESRD (end stage renal disease) on dialysis N18.6; Z99.2 Hyperglycemia due to type 2 diabetes mellitus E11.65 Elevated troponin R79.89 Acute diarrhea R19.7 Thrombocytopenia D69.6 Elevated INR R79.1
[2024-05-10 11:06] VITALS: PULSE 79; O2SAT 95
== END 2024-05-10 15:00 | DRG 871 ==
LOC: ED 12:36 → SUATTDRO 15:23 → EDINP 15:23 → 2S 18:20 → 3E 05-08 14:46

== ENCOUNTER 2024-11-09 12:42 | Inpatient (IN) ==
[2024-11-09 13:21] LABS: Hematocrit (blood only) 37.0 % (37.0-47.0); Hemoglobin 12.1 g/dl (12.0-16.0); Immature Granulocytes # (auto) 0.02 K/uL (0.01-0.20); Immature Granulocytes % (auto) 0.3 %; Mean Corpuscular Hemoglobin 31.3 pg (25.0-34.0); Mean Corpuscular Volume 95.6 fL (80.0-100.0); Platelet Count 123 K/uL (130-400); RDW Standard Deviation 50.6 fL (36.4-46.3); Red Blood Count 3.87 M/uL (4.20-5.40); White Blood Count 7.23 K/ul (4.8-10.8)
--- NOTE | 2024-11-09 13:30 | Emergency Department Note ---
Impression & Plan Hemodialysis catheter infection, Thrombocytopenia, Chronic kidney disease requiring chronic dialysis ED Provider Note NAME: SHANEL HARDY AGE: 74 SEX: F : 1950 ARRIVES VIA: Walk-In INFORMANT: Patient, nursing report, Dr. Ingram ED PROVIDER(S): Gerry Doss MD CHIEF COMPLAINT: Concern for line infection MEDICAL DECISION MAKING: Patient presents with the above. Known history of ESRD on dialysis Thursday completed her full session and noticed some discomfort yesterday. Reportedly did have some purulent drainage earlier today at the line and area was cultured prior to arrival. IV was established and blood work was obtained. Cultures obtained 1 from the catheter as well as one peripherally. I did speak with Dr. Ingram who agreed with the plan of care and was ordered 1750 of Vanco and 1 g of ceftazidime. I did speak with Pippa Holt PA-C with vascular stated that they should be available tomorrow to have her catheter pulled if needed. Blood work today shows a normal white count hemoglobin and mild thrombocytopenia at 123. The patient's kidney function with creatinine 2.18 better from her baseline sodium 135. Pro-Tez pending. Lactate normal. Fluids deferred in light of the patient's known history of ESRD on HD. Discussion w/ other healthcare providers: [facility] Pippa Gipson PA-C with Dr. Pablo vascular surgery [facility] Prior /Outside records reviewed: None Differential diagnosis: Line Infection, cellulitis, abscess, infection, dehydration, metabolic abnormality, hypo/hyperglycemia, electrolyte imbalance, anemia, UTI, pneumonia, thyroid dysfunction among others were considered. Diagnostics, as interpreted by me: ECG: Normal sinus rhythm, rate of 89, normal QRS, left axis deviation no obvious ST elevations. Cardiac monitoring: An order was placed for continuous cardiac monitoring. The monitor shows a rate of 85 with sinus rhythm. Patient was placed on pulse oximetry Medical decision rules: None Imaging studies: I informally interpreted the patient's chest x-ray does not show obvious pneumonia with formal report to follow. HPI: Patient presents due to concern for possible line infection. The patient noticed some discomfort at her insertion site of her permacath which is tunneled in the right chest. Reportedly did go to dialysis today. Patient went back to [facility] and then was brought in to rule out this possible infection. Patient states that she has noticed a little bit of swelling states that there may have been a small Vidales discharge while she was at the dialysis center. She does get Thursday to complete her full session today. Patient does follow with Dr. Ingram. Dr. Ingram had also messaged earlier about the concerns and did have antibiotic recommendations. Patient denies any fevers or chills. No systemic symptoms while undergoing dialysis. PAST MEDICAL HISTORY: See Below PAST SURGICAL HISTORY: See Below SOCIAL HISTORY: See Below HOME MEDICATIONS: See Below ALLERGIES: See Below VITALS: See Below PHYSICAL EXAMINATION: GENERAL: NAD, non-toxic. EYE EXAM: Normal conjunctiva. PERRL, no anisocoria and EOM's grossly intact w/o pain. OROPHARYNX: Moist mucus membranes, edentulous. NECK: Trachea midline, no stridor. Chest: Tunneled permacath right chest, mild swelling around the site, small amount of purulent drainage expressed from the site. LUNGS: Clear to auscultation. Normal chest wall mechanics. HEART: NSR, no MRG. ABDOMEN: Abdomen soft, non-tender, no masses, no rebound or guarding. BACK: No CVA TTP. SKIN: No rashes and no bruising. UPPER EXTREMITIES: Upper extremities are grossly normal. LOWER EXTREMITIES: Grossly normal, slight right greater than left lower extremity edema but without calf pain. Chronic venous stasis changes noted. NEURO EXAM: Awake and alert, follows commands, no obvious facial asymmetry, normal speech, moves all 4 extremities. Past Med/Surg History Problem List (Updated 11/09/24 @ 20:17 by Gerry Doss MD) Hemodialysis catheter infection (Acute) Elevated INR Chronic pain syndrome Thrombocytopenia (Acute) Sepsis Acute bronchitis due to parainfluenza virus Pneumonia Acute dyspnea (Acute) Electrolyte abnormality (Acute) ESRD (end stage renal disease) on dialysis (Acute) Parainfluenza type 1 infection (Acute) Acute hypoxemic respiratory failure (Acute) Acute diarrhea Elevated troponin Hyperglycemia due to type 2 diabetes mellitus Hypotension Fever (Acute) Bronchitis (Acute) Septic shock Chronic kidney disease requiring chronic dialysis (Acute) AMS (altered mental status) (Acute) Leukocytosis (Acute) Hypoxia (Acute) Admitted to intensive care unit Severe sepsis Acute osteomyelitis of right calcaneus Discitis of thoracic region Bacteremia Acute metabolic encephalopathy Abdominal pain Coagulopathy History of GI bleed Candidiasis of mouth and esophagus Hyperglycemia Cellulitis (Acute) Diabetic foot ulcer (Acute) RSV (acute bronchiolitis due to respiratory syncytial virus) (Acute) Hypothyroidism Hypoxia (Acute) Encounter for pre-operative examination PAD (peripheral artery disease) Moderate per vascular records Ischemic cardiomyopathy EF 30-35% per 08/2021 ECHO Chronic respiratory failure with hypoxia Only uses supplemental oxygen when sick- no oxygen needed at this point Anemia in chronic renal disease Hypothyroidism Obstructive sleep apnea No device Obesity Diabetic peripheral neuropathy Bilateral hands and feet Hypertension Depression Medical History ESRD (end stage renal disease) on dialysis M,W,F at [facility] via permacath Parainfluenza type 1 infection Anemia of chronic disease History of severe sepsis Diabetes Hgb A1C 7.3 on 05/20/22 Aortic stenosis Moderate to severe per 08/2021 ECHO Coronary artery disease Denies stents or bypass Per cardio records - likely had prior LAD infarct (pt unaware of when); no ASA due to prior GI bleed Generalized weakness Shingles back-left flank onset 06/26/22 Diabetic ulcer of both feet 11/2021 Stable currently- had debridement 11/2021- wears [employer] [facility] care home resident [facility] Encounter for removal of vascular catheter 08/2021 - Dr Inocencio Pablo (HD catheter) History of gastrointestinal bleeding 06/2021 No recent issues History of CVA (cerebrovascular accident) Several strokes ("many years since last stroke") Surgical History S/P arteriovenous (AV) graft placement 07/2022, [facility] History of open reduction and internal fixation (ORIF) procedure RT IM NAILING 08/06/22 AT [facility] H/O foot surgery 08/2021 - right calcaneal resection 2nd to osteomyelitis - Dr Dick Naqvi Family History Other No pertinent family history Social History Smoking Status: Never smoker Hx Alcohol Use: No Hx Substance Use: No Preferred Language: Austrian Communication Ability: Effective [employer] Required: No Beliefs That Will Affect Care: None Current Living Situation: [facility] Current Living Situation Comment: [facility] Feels Safe at Home: Yes Safety Concerns: Feels Safe At This Time Assistive Devices: Glasses and Wheelchair Allergies Allergies Allergy/AdvReac Type Severity Reaction Status Date / Time cyclobenzaprine Allergy Intermediate Woozy--weak Verified 11/09/24 15:14 [From Flexeril] and out of control Home Meds Home Medications Medication Instructions Recorded Confirmed acetaminophen 325 mg tablet 650 mg PO Q6 PRN Fever 11/06/21 11/09/24 (Tylenol) atorvastatin 80 mg tablet 80 mg PO HS 11/06/21 11/09/24 gabapentin 100 mg capsule 100 mg PO TID 11/06/21 11/09/24 pantoprazole 40 mg tablet,delayed 40 mg PO BID 11/06/21 11/09/24 release insulin glargine 100 unit/mL 10 unit subcut HS 04/11/22 11/09/24 subcutaneous solution (Lantus U-100 Insulin) sucroferric oxyhydroxide 500 mg 500 mg PO TIDM 04/11/22 11/09/24 chewable tablet (Velphoro) bisacodyl 10 mg rectal suppository 10 mg VA DAILY PRN Constipation 08/27/22 11/09/24 (Dulcolax (bisacodyl)) cholecalciferol (vitamin D3) 125 125 mcg PO HS 08/27/22 11/09/24 mcg (5,000 unit) tablet (Vitamin D3) multivitamin 1 tab PO HS 08/27/22 11/09/24 polyethylene glycol 3350 17 See Rx Instructions .Route .COMPLEX 08/27/22 11/09/24 gram/dose oral powder (Miralax) sennosides 8.6 mg-docusate sodium 1 tab-cap PO BID 08/27/22 11/09/24 50 mg tablet (Senokot-S) sodium phosphates 19 gram-7 118 ml VA UD PRN Constipation 08/27/22 11/09/24 gram/118 mL enema (Fleet Enema) carboxymethylcellulose sodium 1 % 2 drp OPB BIDM 04/04/24 11/09/24 eye drops (Artificial Tears (carboxymethylcellulose)) diclofenac sodium 1 % topical gel 2 g topical QID b/l hand pain 04/04/24 11/09/24 levothyroxine 175 mcg tablet 175 mcg PO HS 04/04/24 11/09/24 ondansetron HCl 4 mg tablet 4 mg PO 3XWK 04/04/24 11/09/24 ondansetron HCl 4 mg tablet 4 mg PO Q6H PRN Nausea And Vomiting 04/04/24 11/09/24 protein supplement See Rx Instructions .Route .COMPLEX 04/04/24 11/09/24 sacubitril 24 mg-valsartan 26 mg 1 tab PO QDL 04/04/24 11/09/24 tablet (Entresto) sucroferric oxyhydroxide 500 mg 500 mg PO DAILY PRN W/Snacks 04/04/24 11/09/24 chewable tablet (Velphoro) torsemide 20 mg tablet 120 mg PO 2XWK 04/04/24 11/09/24 vitamin B complex 1 tab PO HS 04/04/24 11/09/24 insulin lispro 100 unit/mL 0 sliding scale dose continuous 05/03/24 11/09/24 subcutaneous solution (Humalog subcutaneous infusion ACHS U-100 Insulin) midodrine 5 mg tablet 5 mg PO DIRECTED PRN SBP <95 11/09/24 11/09/24 DURING DIALYSIS patiromer calcium sorbitex 8.4 8.4 g PO 4XWK 11/09/24 11/09/24 gram oral powder packet (Veltassa) Previous Rx's Medication Instructions Recorded midodrine 10 mg tablet 10 mg PO 3XWK #0 tabs 05/08/24 morphine concentrate 100 mg/5 mL 10 mg (0.5 mL) PO 3XWK #30 mL 05/08/24 (20 mg/mL) oral solution morphine concentrate 100 mg/5 mL 10 mg (0.5 mL) PO Q4H PRN Pain #30 05/08/24 (20 mg/mL) oral solution mL Results & Data (ED) Vital Signs Vital Signs - 24 hr 11/09/24 12:43 11/09/24 13:41 11/09/24 13:42 Temperature 36.5 C Temperature Source Temporal Artery Scan Pulse Rate 98 H 94 H 93 H Pulse Rate from SpO2 Sensor Respiratory Rate 18 22 Respiratory Effort / Characteristics Non-Labored Spontaneous Respiratory Depth Normal Blood Pressure 150/82 H 154/97 H Blood Pressure Mean 104 116 Blood Pressure Position Sitting Pulse Oximetry 98 96 Oxygen Delivery Method Room Air Room Air Sepsis Recent Fever Within 48 Hours No Sepsis New/Unexplained Change in Mental Status No Sepsis Action Taken by Nursing No Action Required 11/09/24 14:00 11/09/24 14:10 11/09/24 14:36 Temperature Temperature Source Pulse Rate 92 H 91 H Pulse Rate from SpO2 Sensor 91 H Respiratory Rate 14 15 Respiratory Effort / Characteristics Respiratory Depth Blood Pressure 157/97 H 158/87 H Blood Pressure Mean 117 110 Blood Pressure Position Pulse Oximetry 98 97 97 Oxygen Delivery Method Room Air Room Air Room Air Sepsis Recent Fever Within 48 Hours Sepsis New/Unexplained Change in Mental Status Sepsis Action Taken by Nursing 11/09/24 15:00 11/09/24 15:09 11/09/24 15:24 Temperature Temperature Source Pulse Rate 91 H 93 H Pulse Rate from SpO2 Sensor 91 H 93 H Respiratory Rate 25 H 20 Respiratory Effort / Characteristics Respiratory Depth Blood Pressure 155/93 H Blood Pressure Mean 102 Blood Pressure Position Pulse Oximetry 97 99 Oxygen Delivery Method Room Air Sepsis Recent Fever Within 48 Hours Sepsis New/Unexplained Change in Mental Status Sepsis Action Taken by [facility] Medications Current Medication List: was personally reviewed by me Laboratory Data Attestation: I reviewed the patient's lab results. 11/09/24 12:57 11/09/24 14:21 Lab Results 11/09/24 11/09/24 11/09/24 Range/Units 12:57 13:54 14:21 WBC 7.23 (4.8-10.8) K/ul RBC 3.87 L (4.20-5.40) M/uL Hgb 12.1 (12.0-16.0) g/dl Hct 37.0 (37.0-47.0) % MCV 95.6 (80.0-100.0) fL MCH 31.3 (25.0-34.0) pg MCHC 32.7 (32.0-36.0) g/dL RDW Std Deviation 50.6 H (36.4-46.3) fL RDW Coeff of Juno 14.6 H (11.5-14.5) % Plt Count 123 L (130-400) K/uL MPV 10.2 (9.4-12.4) fL Immature Gran % (Auto) 0.3 % Neut % (Auto) 67.6 % Lymph % (Auto) 21.7 % [place] % (Auto) 8.3 % Eos % (Auto) 1.8 % Baso % (Auto) 0.3 % Neut # (Auto) 4.89 (1.40-6.50) K/uL Lymph # (Auto) 1.57 (1.20-3.40) K/uL [place] # (Auto) 0.60 H (0.11-0.59) K/uL Eos # (Auto) 0.13 (0.00-0.50) K/uL Baso # (Auto) 0.02 (0.00-0.20) K/uL Immature Gran # (Auto) 0.02 (0.01-0.20) K/uL Sodium 135 L 135 L (136-145) mmol/L Potassium 3.7 3.9 (3.5-5.1) mmol/L Chloride 98 98 (98-107) mmol/L Carbon Dioxide 29 29 (21-32) mmol/L Anion Gap 8 8 (3-11) BUN 16 17 (6-23) mg/dl Creatinine 2.18 H 2.27 H (0.6-1.2) mg/dl Est Cr Clr Drug Dosing Not Reportable Not Reportable eGFR 23.35 22.24 BUN/Creatinine Ratio 7.3 L 7.5 L (10-20) Glucose 176 H 170 H (70-99(Fasting)) mg/dl Lactate 1.4 (0.4-2.0) mmol/L Calcium 8.7 8.6 (8.6-10.3) mg/dl Magnesium 1.8 (1.7-2.4) mg/dl Total Bilirubin 0.7 0.7 (0.2-1.0) mg/dl Direct Bilirubin 0.2 (0-0.2) mg/dl AST 31 29 (13-39) U/L ALT 18 19 (7-52) U/L Alkaline Phosphatase 205 H 201 H (34-104) U/L Troponin I High Sens 13.2 (0-14) pg/ml Total Protein 7.7 7.7 (6.0-8.3) gm/dl Albumin 3.9 4.0 (3.4-5.0) gm/dl Globulin 3.8 (2.5-4.0) gm/dl Albumin/Globulin Ratio 1.0 (0.9-2) Procalcitonin 0.34 (0-0.5) ng/ml Administered Medications Artificial Tears (Artificial Tears) 1 drops OP BIDM [facility] Stop: 12/09/24 17:59 Last Admin: 11/09/24 18:26 Dose: 1 drops Documented By: GERALDO Diclofenac Sodium (Diclofenac Sod 1% Gel 100 Gm Tube) 2 gm EXT QID [facility]; Protocol Stop: 12/09/24 20:59 Last Admin: 11/09/24 19:56 Dose: 2 gm Documented By: FAVIOLA Gabapentin (Gabapentin 100 Mg Cap) 100 mg PO TID [facility] Stop: 12/09/24 20:59 Last Admin: 11/09/24 19:54 Dose: 100 mg Documented By: FAVIOLA Levothyroxine Sodium (Levothyroxine Sodium 175 Mcg Tablet) 175 mcg PO HS [facility] Stop: 12/09/24 20:59 Last Admin: 11/09/24 19:54 Dose: 175 mcg Documented By: FAVIOLA Morphine Sulfate (Morphine Sulfate 10 Mg/0.5 Ml Udp) 10 mg PO Q4H PRN PRN Reason: Pain Stop: 11/23/24 17:29 Last Admin: 11/09/24 19:52 Dose: 10 mg Documented By: FAVIOLA Pantoprazole Sodium (Pantoprazole 40 Mg Tab) 40 mg PO BID [facility] Stop: 12/09/24 20:59 Last Admin: 11/09/24 19:53 Dose: 40 mg Documented By: FAVIOLA Polyethylene Glycol (Polyethylene (Miralax) 17 Gm Pack) 17 gm PO BID@0900,1630 [facility] Stop: 12/09/24 17:59 Last Admin: 11/09/24 18:26 Dose: 17 gm Documented By: GERALDO Senna/Docusate Sodium (Docusate Sodium/Senna 50/8.6mg Tab) 1 tab PO BID [facility] Stop: 12/09/24 20:59 Last Admin: 11/09/24 19:54 Dose: Not Given Documented By: FAVIOLA Vitamin D (Cholecalciferol 125 Mcg (5,000 Units) Tab) 125 mcg PO HS [facility] Stop: 12/09/24 20:59 Last Admin: 11/09/24 19:53 Dose: 125 mcg Documented By: FAVIOLA Discontinued Medications Ceftazidime 1,000 mg/ Dextrose 50 mls @ 100 mls/hr IV NOW STA Stop: 11/09/24 14:08 Last Infusion: 11/09/24 15:25 Dose: Infused Documented By: Admin: 11/09/24 14:55 Dose: 100 mls/hr Documented By: Daptomycin 700 mg/ Syringe 14 mls @ 7 mls/min IV NOW ONE; Protocol Stop: 11/09/24 15:31 Last Admin: 11/09/24 16:13 Dose: 7 mls/min Documented By: PHU Acetaminophen (Ofirmev) 1,000 mg in 100 mls @ 400 mls/hr IV NOW STA Stop: 11/09/24 15:38 Last Infusion: 11/09/24 15:48 Dose: Infused Documented By: Admin: 11/09/24 15:33 Dose: 400 mls/hr Documented By: ANGIE Morphine Sulfate (Morphine Sulfate 2 Mg/Ml Carp) 2 mg IV NOW STA Stop: 11/09/24 15:28 Last Admin: 11/09/24 16:16 Dose: 2 mg Documented By: PHU Imaging Data Radiologist's Impression: Chest X-Ray 11/09/24 13:40 SINGLE VIEW CHEST CLINICAL HISTORY: Sepsis. FINDINGS: 2 AP, portable, upright chest radiographs are compared to study dated 05/04/2024. Correlation is made with chest CT dated 08/04/2021. A right internal jugular central venous catheter is in place. The tip projects over the right atrium. The heart is enlarged noting atherosclerotic calcification of the thoracic aorta. There is pulmonary vascular congestion. Chronic interstitial thickening is similar to previous. Foci of scarring/atelectasis are again seen throughout both lungs. No superimposed airspace consolidation is identified to suggest pneumonia. No large pleural effusion or pneumothorax is seen. The skeletal structures are osteopenic. The bony thorax is grossly intact. IMPRESSION: 1. Cardiomegaly with pulmonary vascular congestion. 2. No airspace consolidation or large pleural effusion is identified. ACT 112: Negative or not required by law. Electronically signed by: Anand Pruett M.D. 11/09/2024 2:13 PM Discharge Plan Visit Data Chief Complaint: Infection Stated Complaint: POSSIBLE DIALYSIS CATH INFECTION ED Provider: Gerry Doss Discharge Problem: Hemodialysis catheter infection, Thrombocytopenia, Chronic kidney disease requiring chronic dialysis Patient Disposition: Admitted As Inpatient Condition: Good Discharge Instructions Interventions: ED Discharge Assessment Last Done: 11/09/24 16:37 Discharge Problem: Hemodialysis catheter infection Qualifiers: Encounter type: initial encounter Qualified Code(s): T82.7XXA - Infection and inflammatory reaction due to other cardiac and vascular devices, implants and grafts, initial encounter
[2024-11-09] MEDS ORDERED: VANCOMYCIN HCL 1,750 MG in SODIUM CHLORIDE 0.9% 500 ML IV ONE (13:39)
[2024-11-09] MEDS ORDERED: VANCOMYCIN CONSULT ACTIVE PRN (13:39)
[2024-11-09 13:51] LABS: Alanine Aminotransferase 18 U/L (7-52); Albumin Globulin Ratio 1.0 (0.9-2); Alkaline Phosphatase 205 U/L (34-104); Anion Gap 8 (3-11); Bilirubin,Total 0.7 mg/dl (0.2-1.0); Blood Urea Nitrogen 16 mg/dl (6-23); Calcium 8.7 mg/dl (8.6-10.3); Carbon Dioxide 29 mmol/L (21-32); Chloride 98 mmol/L (98-107); Globulin 3.8 gm/dl (2.5-4.0); Glucose 176 mg/dl (70-99(Fasting)); Potassium 3.7 mmol/L (3.5-5.1); Sodium 135 mmol/L (136-145); Total Protein 7.7 gm/dl (6.0-8.3)
--- NOTE | 2024-11-09 14:14 | XRay Report ---
SINGLE VIEW CHEST CLINICAL HISTORY: Sepsis. FINDINGS: 2 AP, portable, upright chest radiographs are compared to study dated 05/04/2024. Correlation is made with chest CT dated 08/04/2021. A right internal jugular central venous catheter is in place. The tip projects over the right atrium. The heart is enlarged noting atherosclerotic calcification o f the thoracic aorta. There is pulmonary vascular congestion. Chronic interstitial thickening is kevin lar to previous. Foci of scarring/atelectasis are again seen throughout both lungs. No superimposed a irspace consolidation is identified to suggest pneumonia. No large pleural effusion or pneumothorax i s seen. The skeletal structures are osteopenic. The bony thorax is grossly intact. IMPRESSION: 1. Cardiomegaly with pulmonary vascular congestion. 2. No airspace consolidation or large pleural effusion is identified. ACT 112: Negative or not required by law. Electronically signed by: Anand Pruett M.D. 11/09/2024 2:13 PM
[2024-11-09 14:51] LABS: Alanine Aminotransferase 19 U/L (7-52); Alkaline Phosphatase 201 U/L (34-104); Anion Gap 8 (3-11); Bilirubin,Total 0.7 mg/dl (0.2-1.0); Blood Urea Nitrogen 17 mg/dl (6-23); Calcium 8.6 mg/dl (8.6-10.3); Carbon Dioxide 29 mmol/L (21-32); Chloride 98 mmol/L (98-107); Glucose 170 mg/dl (70-99(Fasting)); Magnesium 1.8 mg/dl (1.7-2.4); Potassium 3.9 mmol/L (3.5-5.1); Sodium 135 mmol/L (136-145); Total Protein 7.7 gm/dl (6.0-8.3)
[2024-11-09] MEDS ORDERED: Patient's HEIGHT &/or WEIGHT Needed STA (14:54)
[2024-11-09] MEDS: cefTAZidime 1,000 MG in DEXTROSE 5 % MINI-B 50 ML IV STA (14:55)
[2024-11-09] MEDS: ACETAMINOPHEN 1,000 MG/100 ML VIAL IV STA (15:33)
--- NOTE | 2024-11-09 15:45 | History & Physical Report ---
Date of Service November 09, 2024 Assessment & Plan (1) Hemodialysis catheter infection: (2) Thrombocytopenia: (3) ESRD (end stage renal disease) on dialysis: (4) Hypothyroidism: (5) Diabetes: Plan #Infected HD tunneled catheter - Admit to med/surg unit - VS per unit protocol - OOB w/ assistance - PT/OT eval and tx - Consult vascular for catheter removal, tip should be cultured upon removal - Continue empiric abx coverage but given h/o VRE, change to dapto + fortaz - Blood cultures ordered x2 sets - Wound cultures collected/pending #ESRD - Continue HD MWF - [facility] nephrology consulted, appreciate assistance - Renal diet #DMT2 - Continue basal/bolus - Renal + CC diet ordered - Accuchecks ac and hs - Last a1c 6.9% in October 2024 #Ischemic cardiomyopathy/HFrEF/CAD - Continue torsemide and entresto - Continue atorvastatin #Hypothyroidism - Continue levothyroxine #Chronic pain - Continue liquid morphine and fentanyl patch VTE ppx with Heparin will be utilized but need to monitor platelet count, currently 123. If drops <100, would d/c in favor of SCD use. AM labs have been ordered. Above plan of care has been d/w Dr. Roberson who will also see and evaluate this patient. Further orders will be implemented as warranted. History of Present Illness Chief Complaint: Infected catheter Primary Care Provider: Florencio Osborn III, [place] is a 74 yo F with a pmhx of DMT2, hypothyroidism, ESRD on HD MWF, CAD, ischemic cardiomyopathy, chronic pain, h/o VRE and MRSA who presents from [facility] today d/t infected tunneled dialysis catheter. She reports that the catheter was inserted 3 years ago when she first started dialysis. She has never had an issues up until yesterday she started noticing some soreness at the catheter site. She went for her regularly scheduled dialysis session today and nursing staff noticed the area was red and draining more than usual. A culture was taken and she was sent directly to [facility] following her dialysis session for further work up. She denies fevers at the facility and she is afebrile here. She has a h/o staph bacteremia in 2021. She also has a h/o VRE. Nephrology suggested Fortaz and Vancomycin empirically with vascular surgery eval for catheter removal. She is currently awake and alert, requesting something for her chronic leg pain. She normally takes liquid morphine for this. She otherwise has no complaints. She has been referred to hospital medicine team for admission. Allergies Allergy/AdvReac Type Severity Reaction Status Date / Time cyclobenzaprine Allergy Intermediate Woozy--weak Verified 11/09/24 15:14 [From Flexeril] and out of control Home Medications Medication Instructions Recorded Confirmed Type acetaminophen 325 mg tablet 650 mg PO Q6 PRN Fever 11/06/21 05/03/24 History (Tylenol) atorvastatin 80 mg tablet 80 mg PO HS 11/06/21 05/03/24 History gabapentin 100 mg capsule 100 mg PO TID 11/06/21 05/03/24 History pantoprazole 40 mg tablet,delayed 40 mg PO BID 11/06/21 05/03/24 History release insulin glargine 100 unit/mL 10 unit subcut HS 04/11/22 05/03/24 History subcutaneous solution (Lantus U-100 Insulin) sucroferric oxyhydroxide 500 mg 500 mg PO TIDWMEAL 04/11/22 05/03/24 History chewable tablet (Velphoro) bisacodyl 10 mg rectal suppository 10 mg ID DAILY PRN Constipation 08/27/22 05/03/24 History (Dulcolax (bisacodyl)) cholecalciferol (vitamin D3) 125 125 mcg PO HS 08/27/22 05/03/24 History mcg (5,000 unit) tablet (Vitamin D3) multivitamin 1 tab PO HS 08/27/22 05/03/24 History polyethylene glycol 3350 17 17 g PO BID 08/27/22 05/03/24 History gram/dose oral powder (Miralax) sennosides 8.6 mg-docusate sodium 1 tab-cap PO BID 08/27/22 05/03/24 History 50 mg tablet (Senokot-S) sodium phosphates 19 gram-7 118 ml ID UD PRN Constipation 08/27/22 05/03/24 History gram/118 mL enema (Fleet Enema) calcium acetate(phosphat bind) 667 667 mg PO DAILY PRN Snacks 09/19/22 05/03/24 History mg tablet calcium acetate(phosphat bind) 667 1,334 mg PO TIDWMEAL 04/04/24 05/03/24 History mg capsule carboxymethylcellulose sodium 1 % 2 drp OPB BID 04/04/24 05/03/24 History eye drops (Artificial Tears (carboxymethylcellulose)) diclofenac sodium 1 % topical gel 2 g topical QID b/l hand pain 04/04/24 05/03/24 History levothyroxine 175 mcg tablet 175 mcg PO HS 04/04/24 05/03/24 History ondansetron HCl 4 mg tablet 4 mg PO 3XWK 04/04/24 05/03/24 History ondansetron HCl 4 mg tablet 4 mg PO Q6H PRN Nausea And Vomiting 04/04/24 05/03/24 History protein supplement 1 ea PO UD 04/04/24 05/03/24 History sacubitril 24 mg-valsartan 26 mg 1 tab PO QPM 04/04/24 05/03/24 History tablet (Entresto) sucroferric oxyhydroxide 500 mg 500 mg PO DAILY PRN W/Snacks 04/04/24 05/03/24 History chewable tablet (Velphoro) torsemide 20 mg tablet 120 mg PO 2XWK 04/04/24 05/03/24 History vitamin B complex 1 tab PO HS 04/04/24 05/03/24 History Saccharomyces boulardii 250 mg 250 mg PO BID 05/03/24 05/03/24 History capsule (Florastor) bacitracin 500 unit/gram topical 1 applic topical DAILY 05/03/24 05/03/24 History packet insulin lispro 100 unit/mL See Rx Instructions .Route .COMPLEX 05/03/24 05/03/24 History subcutaneous solution (Humalog U-100 Insulin) codeine 10 mg-guaifenesin 100 mg/5 5 ml PO Q6H PRN cough #120 mL 05/08/24 Rx mL oral liquid (Guaifenesin AC) fentanyl 25 mcg/hr transdermal 1 patch transdermal Q72H #5 ea 05/08/24 Rx patch levofloxacin 500 mg tablet 500 mg PO ONCE #1 tab 05/08/24 Rx midodrine 10 mg tablet 10 mg PO 3XWK #0 tabs 05/08/24 05/03/24 Rx morphine concentrate 100 mg/5 mL 10 mg (0.5 mL) PO 3XWK #30 mL 05/08/24 Rx (20 mg/mL) oral solution morphine concentrate 100 mg/5 mL 10 mg (0.5 mL) PO Q4H PRN Pain #30 05/08/24 Rx (20 mg/mL) oral solution mL sodium chloride 7 % for 4 ml NEB BID #120 mL 05/08/24 Rx nebulization colestipol 1 gram tablet 1 g PO BID PRN diarrhea #0 tabs 05/10/24 05/03/24 Rx ipratropium 0.5 mg-albuterol 3 mg 3 ml inhalation Q2H PRN Shortness 05/10/24 05/03/24 Rx (2.5 mg base)/3 mL nebulization Of Breath Or Wheezing #0 mL soln ipratropium 0.5 mg-albuterol 3 mg 3 ml inhalation QID #0 mL 05/10/24 05/03/24 Rx (2.5 mg base)/3 mL nebulization soln prednisone 10 mg tablet 10 mg PO DIRECTED #9 tabs 05/10/24 Rx Past Med/Surg History Problem List (Updated 11/09/24 @ 15:38 by Layne Wright PA-C) Hemodialysis catheter infection Elevated INR Chronic pain syndrome Thrombocytopenia Sepsis Acute bronchitis due to parainfluenza virus Pneumonia Acute dyspnea (Acute) Electrolyte abnormality (Acute) ESRD (end stage renal disease) on dialysis (Acute) Parainfluenza type 1 infection (Acute) Acute hypoxemic respiratory failure (Acute) Acute diarrhea Elevated troponin Hyperglycemia due to type 2 diabetes mellitus Hypotension Fever (Acute) Bronchitis (Acute) Septic shock Chronic kidney disease requiring chronic dialysis (Acute) AMS (altered mental status) (Acute) Leukocytosis (Acute) Hypoxia (Acute) Admitted to intensive care unit Severe sepsis Acute osteomyelitis of right calcaneus Discitis of thoracic region Bacteremia Acute metabolic encephalopathy Abdominal pain Coagulopathy History of GI bleed Candidiasis of mouth and esophagus Hyperglycemia Cellulitis (Acute) Diabetic foot ulcer (Acute) RSV (acute bronchiolitis due to respiratory syncytial virus) (Acute) Hypothyroidism Hypoxia (Acute) Encounter for pre-operative examination PAD (peripheral artery disease) Moderate per vascular records Ischemic cardiomyopathy EF 30-35% per 08/2021 ECHO Chronic respiratory failure with hypoxia Only uses supplemental oxygen when sick- no oxygen needed at this point Anemia in chronic renal disease Hypothyroidism Obstructive sleep apnea No device Obesity Diabetic peripheral neuropathy Bilateral hands and feet Hypertension Depression Medical History ESRD (end stage renal disease) on dialysis M,W,F at [facility] via [facility] Parainfluenza type 1 infection Anemia of chronic disease History of severe sepsis Diabetes Hgb A1C 7.3 on 05/20/22 Aortic stenosis Moderate to severe per 08/2021 ECHO Coronary artery disease Denies stents or bypass Per cardio records - likely had prior LAD infarct (pt unaware of when); no ASA due to prior GI bleed Generalized weakness Shingles back-left flank onset 06/26/22 Diabetic ulcer of both feet 11/2021 Stable currently- had debridement 11/2021- 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 [facility] Encounter for removal of vascular catheter 08/2021 - Dr Inocencio Pablo (HD catheter) History of gastrointestinal bleeding 06/2021 No recent issues History of CVA (cerebrovascular accident) Several strokes ("many years since last stroke") Surgical History S/P arteriovenous (AV) graft placement 07/2022, [facility] History of open reduction and internal fixation (ORIF) procedure RT IM NAILING 08/06/22 AT [facility] [place] H/O foot surgery 08/2021 - right calcaneal resection 2nd to osteomyelitis - Dr Dick Naqvi Family History Other No pertinent family history Social History Smoking Status: Never smoker Hx Alcohol Use: No Hx Substance Use: No Preferred Language: Malaysian Communication Ability: Effective Nursing Unit Clerk Required: No Beliefs That Will Affect Care: None Current Living Situation: Long Term Current Living Situation Comment: [facility] Feels Safe at Home: Yes Assistive Devices: Wheelchair Review of Systems 2 Review of Systems: All systems reviewed and are unremarkable except as noted in HPI and below. Denies fever, chills, fatigue, headache, nasal congestion, sore throat, cough, chest pain, shortness of breath, palpitations, orthopnea, PND, abdominal pain, n/v/d, constipation, dysuria, hematuria, frequency, easy bruising or bleeding. Physical Exam 2 Physical Exam: GENERAL: 74 yo obese elderly WF. A&Ox4. No distress. LUNGS: Clear to auscultation bilaterally. No W/R/R. CARDIOVASCULAR: Regular rate and rhythm w/ 4/6 STAN. ABDOMEN: Soft, non-tender and non-distended. BS normoactive x 4 quad. EXTREMITIES: Chronic RLE edema. No LLE edema or tenderness. Peripheral pulses +2/4. PSYCHIATRIC: Cooperative. Appropriate mood and affect. SKIN: tunneled catheter noted exiting right chest wall with purulent drainage surrounding catheter noted. Surrounding skin erythematous and tender. Results & Data Results & Data Vital Signs (Past 12 Hours) Vital Signs Temp Pulse Resp BP Pulse Ox O2 Del Method 11/09/24 15:09 91 H 25 H 97 Room Air 11/09/24 15:00 155/93 H 11/09/24 14:36 91 H 15 158/87 H 97 Room Air 11/09/24 14:10 97 Room Air 11/09/24 14:00 92 H 14 157/97 H 98 Room Air 11/09/24 13:42 93 H 22 154/97 H 96 Room Air 11/09/24 13:41 94 H 11/09/24 12:43 36.5 C 98 H 18 150/82 H 98 Room Air Laboratory Results 11/09/24 12:57 11/09/24 14:21 Diagnostic Findings Chest X-Ray 11/09/24 13:40 SINGLE VIEW CHEST CLINICAL HISTORY: Sepsis. FINDINGS: 2 AP, portable, upright chest radiographs are compared to study dated 05/04/2024. Correlation is made with chest CT dated 08/04/2021. A right internal jugular central venous catheter is in place. The tip projects over the right atrium. The heart is enlarged noting atherosclerotic calcification of the thoracic aorta. There is pulmonary vascular congestion. Chronic interstitial thickening is similar to previous. Foci of scarring/atelectasis are again seen throughout both lungs. No superimposed airspace consolidation is identified to suggest pneumonia. No large pleural effusion or pneumothorax is seen. The skeletal structures are osteopenic. The bony thorax is grossly intact. IMPRESSION: 1. Cardiomegaly with pulmonary vascular congestion. 2. No airspace consolidation or large pleural effusion is identified. ACT 112: Negative or not required by law. Electronically signed by: Anand Pruett M.D. 11/09/2024 2:13 PM Code Status & VTE Plan Code Status DNR/DNI confirmed at bedside with patient PG Care Time/CCT Total # of Minutes Spent Total Time Spent with Patient: Total time spent is greater than 50% in coordination of care (as documented) at patient's floor/unit and/or counseling patient: 77 minutes Coding Level of Care Code 30625 INT INP/OBS CARE 3/75MIN Diagnoses Infection of hemodialysis catheter, initial encounter T82.7XXA Encounter type: initial encounter Thrombocytopenia D69.6 ESRD (end stage renal disease) on dialysis N18.6; Z99.2 Hypothyroidism E03.9 Diabetes E11.9 (1) Hemodialysis catheter infection Encounter type: initial encounter Qualified Code(s): T82.7XXA - Infection and inflammatory reaction due to other cardiac and vascular devices, implants and grafts, initial encounter
[2024-11-09] MEDS: DAPTOmycin 700 MG in SYRINGE 0 ML IV ONE (16:13)
[2024-11-09] MEDS: MoRPHine SULFATE 2 MG/ML CARP IV STA (16:16)
[2024-11-09] MEDS ORDERED: ALUMINUM/MAGNESIUM SUSP 30 ML UDC PO PRN (17:08)
[2024-11-09] MEDS ORDERED: ONDANSETRON INJ 2 MG/ML 2 ML VIAL IV PRN (17:08)
[2024-11-09] MEDS ORDERED: MAGNESIUM HYDROXIDE SUSP 30 ML UDC PO PRN (17:08)
[2024-11-09] MEDS ORDERED: POLYETHYLENE (MIRALAX) 17 GM PACK PO PRN (17:08)
[2024-11-09] MEDS ORDERED: ACETAMINOPHEN 325 MG TAB PO PRN (17:08)
[2024-11-09] MEDS ORDERED: MIDODRINE HCL 2.5 MG TAB PO PRN (17:30)
[2024-11-09] MEDS ORDERED: NON-FORMULARY MEDICATION (Protein Supplement Liquid) SCH (17:30)
[2024-11-09] MEDS ORDERED: GLUCAGON FOR INJ 1 MG VIAL SQ PRN (17:33)
[2024-11-09] MEDS ORDERED: GLUCOSE 10 TAB/TUBE PO PRN (17:33)
[2024-11-09] MEDS ORDERED: DEXTROSE 50% 50 ML SYRINGE IV PRN (17:33)
[2024-11-09] MEDS ORDERED: GLUCOSE 40% GEL 15 GM TUBE PO PRN (17:33)
--- NOTE | 2024-11-09 17:56 | Electrocardiogram Report ---
Test Reason : Blood Pressure : */* mmHG Vent. Rate : 89 BPM Atrial Rate : 89 BPM P-R Int : 200 ms QRS Dur : 72 ms QT Int : 380 ms P-R-T Axes : 74 -35 118 degrees QTcB Int : 462 ms Normal sinus rhythm Left axis deviation possible Inferior infarct (cited on or before 06-Aug-2021) Anterior infarct (cited on or before 04-Aug-2021) Abnormal ECG When compared with ECG of 03-May-2024 12:45, T wave amplitude has decreased in Anterior leads Confirmed by Stefan Duran ([id number]) on 11/09/2024 5:55:55 PM Referred By: REFERRED SELF Confirmed By: Stefan Duran
[2024-11-09] MEDS: ARTIFICIAL TEARS OP SCH (18:26)
[2024-11-09] MEDS: POLYETHYLENE (MIRALAX) 17 GM PACK PO SCH (18:26)
[2024-11-09] MEDS: MoRPHine SULFATE 10 MG/0.5 ML UDP PO PRN (19:52)
[2024-11-09] MEDS: CHOLECALCIFEROL 125 MCG (5,000 UNITS) TAB PO SCH (19:53)
[2024-11-09] MEDS: GABAPENTIN 100 MG CAP PO SCH (19:54)
[2024-11-09] MEDS: LEVOTHYROXINE SODIUM 175 MCG TABLET PO SCH (19:54)
[2024-11-09] MEDS: DOCUSATE SODIUM/SENNA 50/8.6MG TAB PO SCH (19:54)
[2024-11-09] MEDS: DICLOFENAC SOD 1% GEL 100 GM TUBE EXT SCH (19:56)
[2024-11-09] MEDS ORDERED: ATORVASTATIN 40 MG TAB PO SCH (21:00)
[2024-11-09] MEDS: HEPARIN SOD 5,000 UNIT/0.5 ML VIAL SQ SCH (21:35)
[2024-11-09] MEDS: INSULIN ASPART PER UNIT CHARGE SC SCH (21:35)
[2024-11-09] MEDS: LANTUS PER UNIT CHARGE SQ SCH (21:35)
[2024-11-09] MEDS: VELPHORO: ORDER AWAITING ACTION SCH (21:38)
[2024-11-10 08:20] LABS: Hematocrit (blood only) 34.2 % (37.0-47.0); Hemoglobin 11.0 g/dl (12.0-16.0); Immature Granulocytes # (auto) 0.01 K/uL (0.01-0.20); Immature Granulocytes % (auto) 0.2 %; Mean Corpuscular Hemoglobin 31.2 pg (25.0-34.0); Mean Corpuscular Volume 96.9 fL (80.0-100.0); Platelet Count 114 K/uL (130-400); RDW Standard Deviation 51.5 fL (36.4-46.3); Red Blood Count 3.53 M/uL (4.20-5.40); White Blood Count 6.11 K/ul (4.8-10.8)
--- NOTE | 2024-11-10 08:23 | Nephrology Consultation ---
Date of Consultation November 10, 2024 Assessment & Plan (1) Infection of exit site of hemodialysis catheter: these infections are not treatable w/ systemic antibiotics -needs dialysis catheter to be removed and needs to have new catheter placed at alternative site >> vascular assistance appreciated -monitor for sepsis -- no concerns so far >>made her NPO pending vascular evaluation; she is on SQ heparin; INR 1.3 no warfarin; procedure not likely today but be ready in case removal for today/pending vascular workflow >>>>vascular may well opt not to replace TDC until blood cultures negative x 48 hrs >> would be 11/11 at 1500 -pls culture catheter tip -continue abtx 2 wks and narrow as feasible; continue daptomycin and ceftazidime -will follow up on [facility] exit site and blood cultures as they post -follow pending blood cutlures here Care communicated w/ Dr Fair re NPO status, need for TDC exchange and for HD access, timing of next HD tx via TText; we are in agreement. (2) ESRD (end stage renal disease) on dialysis: she has chronic volume overload and HFpEF w/ ; she is on RA currently; had full HD 11/10 -plan next HD tomorrow w/ old or new catheter but won't make it through the weekend w/o an access or without HD treatment History of Present Illness Reason for Consultation: ESRD on HD Requesting Physician: Dr Roberson Attending Physician: Phong Fair MD History of Present Illness 74 y/o F whom I'm asked to follow for ESRD on HD was admitted yesterday with a tunneled dialysis catheter exit site infection. PMH includes aortic stenosis, HFpEF, cardiomyopathy moderate to severe presumed ischemic with regional wall motion abnormalities and likely prior LAD infarct, longstanding diabetes with retinopathy, chronic low back pain, PAD, chronically w/c bound/agapito lift dependent. She dialyzes on site at [facility] via tunnelled dialysis catheter; her permanent vascular access sites are exhausted. yesterday prior to starting HD was noted to have purulent drainage from around her dialysis catheter and tenderness at the exit site and along the catheter track under her skin; this area was also noted by dialysis nurse to be indurated, erythematous, and slightly swollen. The pt had no fevers/chills, no malaise, no n/v or new/worse generalized weakness, no relative hypotension. Exit site swabs and blood cultures x 2 were obtained and sent to the [facility] lab. Because she was hemodynamically stable and b/c antibiotics are not easily urgently accessed at the SNF and she was coming to ED, abtx were deferred at dialysis. She had her full treatment per routine w/o unusual blood pressure issues. The catheter flushes, aspirates, and runs w/o problems. D/t concern for exit site infection of the dialysis catheter, I referred her to [facility]. She is feeling well denies nausea vomiting uncontrolled pain worsening pain at the site of the catheter, malaise fever chills rigors shortness of breath or cough. Allergies Allergy/AdvReac Type Severity Reaction Status Date / Time cyclobenzaprine Allergy Intermediate Woozy--weak Verified 11/09/24 15:14 [From Flexeril] and out of control Home Medications Medication Instructions Recorded Confirmed Type acetaminophen 325 mg tablet 650 mg PO Q6 PRN Fever 11/06/21 11/09/24 History (Tylenol) atorvastatin 80 mg tablet 80 mg PO HS 11/06/21 11/09/24 History gabapentin 100 mg capsule 100 mg PO TID 11/06/21 11/09/24 History pantoprazole 40 mg tablet,delayed 40 mg PO BID 11/06/21 11/09/24 History release insulin glargine 100 unit/mL 10 unit subcut HS 04/11/22 11/09/24 History subcutaneous solution (Lantus U-100 Insulin) sucroferric oxyhydroxide 500 mg 500 mg PO TIDM 04/11/22 11/09/24 History chewable tablet (Velphoro) bisacodyl 10 mg rectal suppository 10 mg TN DAILY PRN Constipation 08/27/22 11/09/24 History (Dulcolax (bisacodyl)) cholecalciferol (vitamin D3) 125 125 mcg PO HS 08/27/22 11/09/24 History mcg (5,000 unit) tablet (Vitamin D3) multivitamin 1 tab PO HS 08/27/22 11/09/24 History polyethylene glycol 3350 17 See Rx Instructions .Route .COMPLEX 08/27/22 11/09/24 History gram/dose oral powder (Miralax) sennosides 8.6 mg-docusate sodium 1 tab-cap PO BID 08/27/22 11/09/24 History 50 mg tablet (Senokot-S) sodium phosphates 19 gram-7 118 ml TN UD PRN Constipation 08/27/22 11/09/24 History gram/118 mL enema (Fleet Enema) carboxymethylcellulose sodium 1 % 2 drp OPB BIDM 04/04/24 11/09/24 History eye drops (Artificial Tears (carboxymethylcellulose)) diclofenac sodium 1 % topical gel 2 g topical QID b/l hand pain 04/04/24 11/09/24 History levothyroxine 175 mcg tablet 175 mcg PO HS 04/04/24 11/09/24 History ondansetron HCl 4 mg tablet 4 mg PO 3XWK 04/04/24 11/09/24 History ondansetron HCl 4 mg tablet 4 mg PO Q6H PRN Nausea And Vomiting 04/04/24 11/09/24 History protein supplement See Rx Instructions .Route .COMPLEX 04/04/24 11/09/24 History sacubitril 24 mg-valsartan 26 mg 1 tab PO QDL 04/04/24 11/09/24 History tablet (Entresto) sucroferric oxyhydroxide 500 mg 500 mg PO DAILY PRN W/Snacks 04/04/24 11/09/24 History chewable tablet (Velphoro) torsemide 20 mg tablet 120 mg PO 2XWK 04/04/24 11/09/24 History vitamin B complex 1 tab PO HS 04/04/24 11/09/24 History insulin lispro 100 unit/mL 0 sliding scale dose continuous 05/03/24 11/09/24 History subcutaneous solution (Humalog subcutaneous infusion ACHS U-100 Insulin) midodrine 10 mg tablet 10 mg PO 3XWK #0 tabs 05/08/24 11/09/24 Rx morphine concentrate 100 mg/5 mL 10 mg (0.5 mL) PO 3XWK #30 mL 05/08/24 11/09/24 Rx (20 mg/mL) oral solution morphine concentrate 100 mg/5 mL 10 mg (0.5 mL) PO Q4H PRN Pain #30 05/08/24 11/09/24 Rx (20 mg/mL) oral solution mL midodrine 5 mg tablet 5 mg PO DIRECTED PRN SBP <95 11/09/24 11/09/24 History DURING DIALYSIS patiromer calcium sorbitex 8.4 8.4 g PO 4XWK 11/09/24 11/09/24 History gram oral powder packet (Veltassa) Patient History Medical History ESRD (end stage renal disease) on dialysis M[facility]W,F [facility] Parainfluenza type 1 infection Anemia of chronic disease History of severe sepsis Diabetes Hgb A1C 7.3 on 05/20/22 Aortic stenosis Moderate to severe per 08/2021 ECHO Coronary artery disease Denies stents or bypass Per cardio records - likely had prior LAD infarct (pt unaware of when); no ASA due to prior GI bleed Generalized weakness Shingles back-left flank onset 06/26/22 Diabetic ulcer of both feet 11/2021 Stable currently- had debridement 11/2021- wears Un[employer] boots group home resident [facility] Encounter for removal of vascular catheter 08/2021 - Dr Inocencio Pablo (HD catheter) History of gastrointestinal bleeding 06/2021 No recent issues History of CVA (cerebrovascular accident) Several strokes ("many years since last stroke") Surgical History S/P arteriovenous (AV) graft placement 07/2022, [facility] History of open reduction and internal fixation (ORIF) procedure RT IM NAILING 08/06/22 AT [facility] [place] H/O foot surgery 08/2021 - right calcaneal resection 2nd to osteomyelitis - Dr Dick Naqvi Family History Other No pertinent family history Social History Smoking Status: Never smoker Hx Alcohol Use: No Hx Substance Use: No Preferred Language: Hebrew Communication Ability: Effective Director Of Property Management Required: No Beliefs That Will Affect Care: None Current Living Situation: Assisted Current Living Situation Comment: [facility] Feels Safe at Home: Yes Safety Concerns: Feels Safe At This Time Assistive Devices: Wheelchair Review of Systems Review of Systems: All systems reviewed & are unremarkable except as noted in HPI & below Physical Exam Constitutional: well developed, well nourished and + physical limitations; no acute distress Eyes: EOM intact bilaterally ENMT: Mouth: + dry oral mucous membranes Neck: no nuchal rigidity Respiratory: normal respiratory effort Auscultation: + diminished lung sounds Gastrointestinal (Abdomen): Inspection/Auscultation: normal bowel sounds Percussion/Palpation: abdomen soft; abdomen nontender Musculoskeletal: Extremities: strength 5/5 throughout Skin: no rashes, warm and dry Neurologic: davis, fluent speech, no tremor Results & Data Vital Signs (Past 12 Hours) Vital Signs Temp Pulse Resp BP Pulse Ox O2 Del Method 11/10/24 07:34 36.9 C 75 16 158/76 H 97 Room Air Laboratory Results 11/10/24 11/10/24 11/09/24 Range/Units 07:43 07:15 20:23 WBC Pending (4.8-10.8) K/ul RBC Pending (4.20-5.40) M/uL Hgb Pending (12.0-16.0) g/dl Hct Pending (37.0-47.0) % MCV Pending (80.0-100.0) fL MCH Pending (25.0-34.0) pg MCHC Pending (32.0-36.0) g/dL RDW Std Deviation (36.4-46.3) fL RDW Coeff of Juno (11.5-14.5) % Plt Count Pending (130-400) K/uL MPV (9.4-12.4) fL Immature Gran % (Auto) % Neut % (Auto) % Lymph % (Auto) % [place] % (Auto) % Eos % (Auto) % Baso % (Auto) % Neut # (Auto) (1.40-6.50) K/uL Lymph # (Auto) (1.20-3.40) K/uL [place] # (Auto) (0.11-0.59) K/uL Eos # (Auto) (0.00-0.50) K/uL Baso # (Auto) (0.00-0.20) K/uL Immature Gran # (Auto) (0.01-0.20) K/uL Sodium Pending (136-145) mmol/L Potassium Pending (3.5-5.1) mmol/L Chloride Pending (98-107) mmol/L Carbon Dioxide Pending (21-32) mmol/L Anion Gap Pending (3-11) BUN Pending (6-23) mg/dl Creatinine Pending (0.6-1.2) mg/dl Est Cr Clr Drug Dosing Pending eGFR Pending BUN/Creatinine Ratio Pending (10-20) Glucose Pending (70-99(Fasting)) mg/dl POC Glucose 87 228 H (70-99) mg/dl Lactate (0.4-2.0) mmol/L Calcium Pending (8.6-10.3) mg/dl Magnesium Pending (1.7-2.4) mg/dl Total Bilirubin Pending (0.2-1.0) mg/dl Direct Bilirubin (0-0.2) mg/dl AST Pending (13-39) U/L ALT Pending (7-52) U/L Alkaline Phosphatase Pending (34-104) U/L Troponin I High Sens (0-14) pg/ml Total Protein Pending (6.0-8.3) gm/dl Albumin Pending (3.4-5.0) gm/dl Globulin Pending (2.5-4.0) gm/dl Albumin/Globulin Ratio Pending (0.9-2) Procalcitonin (0-0.5) ng/ml Nasal Screen MRSA (PCR) (Negative) 11/09/24 11/09/24 11/09/24 Range/Units 18:25 17:03 14:21 WBC (4.8-10.8) K/ul RBC (4.20-5.40) M/uL Hgb (12.0-16.0) g/dl Hct (37.0-47.0) % MCV (80.0-100.0) fL MCH (25.0-34.0) pg MCHC (32.0-36.0) g/dL RDW Std Deviation (36.4-46.3) fL RDW Coeff of Juno (11.5-14.5) % Plt Count (130-400) K/uL MPV (9.4-12.4) fL Immature Gran % (Auto) % Neut % (Auto) % Lymph % (Auto) % [place] % (Auto) % Eos % (Auto) % Baso % (Auto) % Neut # (Auto) (1.40-6.50) K/uL Lymph # (Auto) (1.20-3.40) K/uL [place] # (Auto) (0.11-0.59) K/uL Eos # (Auto) (0.00-0.50) K/uL Baso # (Auto) (0.00-0.20) K/uL Immature Gran # (Auto) (0.01-0.20) K/uL Sodium 135 L (136-145) mmol/L Potassium 3.9 (3.5-5.1) mmol/L Chloride 98 (98-107) mmol/L Carbon Dioxide 29 (21-32) mmol/L Anion Gap 8 (3-11) BUN 17 (6-23) mg/dl Creatinine 2.27 H (0.6-1.2) mg/dl Est Cr Clr Drug Dosing Not Reportable eGFR 22.24 BUN/Creatinine Ratio 7.5 L (10-20) Glucose 170 H (70-99(Fasting)) mg/dl POC Glucose 169 H (70-99) mg/dl Lactate (0.4-2.0) mmol/L Calcium 8.6 (8.6-10.3) mg/dl Magnesium 1.8 (1.7-2.4) mg/dl Total Bilirubin 0.7 (0.2-1.0) mg/dl Direct Bilirubin 0.2 (0-0.2) mg/dl AST 29 (13-39) U/L ALT 19 (7-52) U/L Alkaline Phosphatase 201 H (34-104) U/L Troponin I High Sens 13.2 (0-14) pg/ml Total Protein 7.7 (6.0-8.3) gm/dl Albumin 4.0 (3.4-5.0) gm/dl Globulin (2.5-4.0) gm/dl Albumin/Globulin Ratio (0.9-2) Procalcitonin 0.34 (0-0.5) ng/ml Nasal Screen MRSA (PCR) Negative (Negative) 11/09/24 11/09/24 Range/Units 13:54 12:57 WBC 7.23 (4.8-10.8) K/ul RBC 3.87 L (4.20-5.40) M/uL Hgb 12.1 (12.0-16.0) g/dl Hct 37.0 (37.0-47.0) % MCV 95.6 (80.0-100.0) fL MCH 31.3 (25.0-34.0) pg MCHC 32.7 (32.0-36.0) g/dL RDW Std Deviation 50.6 H (36.4-46.3) fL RDW Coeff of Juno 14.6 H (11.5-14.5) % Plt Count 123 L (130-400) K/uL MPV 10.2 (9.4-12.4) fL Immature Gran % (Auto) 0.3 % Neut % (Auto) 67.6 % Lymph % (Auto) 21.7 % [place] % (Auto) 8.3 % Eos % (Auto) 1.8 % Baso % (Auto) 0.3 % Neut # (Auto) 4.89 (1.40-6.50) K/uL Lymph # (Auto) 1.57 (1.20-3.40) K/uL [place] # (Auto) 0.60 H (0.11-0.59) K/uL Eos # (Auto) 0.13 (0.00-0.50) K/uL Baso # (Auto) 0.02 (0.00-0.20) K/uL Immature Gran # (Auto) 0.02 (0.01-0.20) K/uL Sodium 135 L (136-145) mmol/L Potassium 3.7 (3.5-5.1) mmol/L Chloride 98 (98-107) mmol/L Carbon Dioxide 29 (21-32) mmol/L Anion Gap 8 (3-11) BUN 16 (6-23) mg/dl Creatinine 2.18 H (0.6-1.2) mg/dl Est Cr Clr Drug Dosing Not Reportable eGFR 23.35 BUN/Creatinine Ratio 7.3 L (10-20) Glucose 176 H (70-99(Fasting)) mg/dl POC Glucose (70-99) mg/dl Lactate 1.4 (0.4-2.0) mmol/L Calcium 8.7 (8.6-10.3) mg/dl Magnesium (1.7-2.4) mg/dl Total Bilirubin 0.7 (0.2-1.0) mg/dl Direct Bilirubin (0-0.2) mg/dl AST 31 (13-39) U/L ALT 18 (7-52) U/L Alkaline Phosphatase 205 H (34-104) U/L Troponin I High Sens (0-14) pg/ml Total Protein 7.7 (6.0-8.3) gm/dl Albumin 3.9 (3.4-5.0) gm/dl Globulin 3.8 (2.5-4.0) gm/dl Albumin/Globulin Ratio 1.0 (0.9-2) Procalcitonin (0-0.5) ng/ml Nasal Screen MRSA (PCR) (Negative) Diagnostic Findings cxr 1. Cardiomegaly with pulmonary vascular congestion. 2. No airspace consolidation or large pleural effusion is identified.
[2024-11-10 08:41] LABS: Alanine Aminotransferase 15.0 U/L (7-52); Albumin Globulin Ratio 1.1 (0.9-2); Alkaline Phosphatase 168.0 U/L (34-104); Anion Gap 7.0 (3-11); Bilirubin,Total 0.7 mg/dl (0.2-1.0); Blood Urea Nitrogen 31.0 mg/dl (6-23); Calcium 8.5 mg/dl (8.6-10.3); Carbon Dioxide 30.0 mmol/L (21-32); Chloride 97.0 mmol/L (98-107); Creatinine Clr Calc Pharmacy 15.0 ml/min; Globulin 3.2 gm/dl (2.5-4.0); Glucose 72.0 mg/dl (70-99(Fasting)); Magnesium 1.8 mg/dl (1.7-2.4); Potassium 4.2 mmol/L (3.5-5.1); Sodium 134.0 mmol/L (136-145); Total Protein 6.8 gm/dl (6.0-8.3)
[2024-11-10] MEDS: PATIROMER CALCIUM SORBITEX 8.4 GM PACK PO SCH (11:57)
[2024-11-10] MEDS: VALSARTAN/SACUBITRIL 26/24MG TAB PO SCH (11:57)
--- NOTE | 2024-11-10 12:35 | Hospitalist Progress Note ---
Date of Service November 10, 2024 Assessment & Plan (1) Hemodialysis catheter infection: (2) Thrombocytopenia: (3) ESRD (end stage renal disease) on dialysis: (4) Hypothyroidism: (5) Diabetes: Plan #Infected HD tunneled catheter - Admitted to med/surg unit - VS per unit protocol - OOB w/ assistance - PT/OT eval and tx - Consult vascular for catheter removal, tip should be cultured upon removal - Made NPO this AM after breakfast for OR catheter removal - Continue empiric abx coverage but given h/o VRE, change to dapto + fortaz - Blood cultures collected x2 sets, pending - Wound cultures collected/pending #ESRD - Continue HD MWF - [facility] nephrology consulted, appreciate assistance - Renal/CC diet can be resumed following OR catheter removal #DMT2 - Continue basal/bolus - Renal + CC diet as above - Accuchecks ac and hs - Last a1c 6.9% in October 2024 #Ischemic cardiomyopathy/HFrEF/CAD - Continue torsemide and entresto - Atorvastatin held while on Dapto #Hypothyroidism - Continue levothyroxine #Chronic pain - Continue liquid morphine and fentanyl patch VTE ppx with Heparin which was held this AM. Platelet count 114 this AM. Can have PM dose. AM labs ordered to trend platelets/electrolytes. Due for HD tomorrow, nephrology following. Admission and Anticipated Discharge Date Admission Date: November 09, 2024 Supervising Physician Co-Signing Physician Notes The patient was not seen by me. The chart was reviewed. Case discussed with LIZET Rodriguez. Agree with assessment and plan Subjective Saida was seen on rounds this morning. She is resting comfortably in bedside chair. She has no complaints other than ongoing tenderness above catheter exit site. She remains afebrile and otherwise hemodynamically stable. She denies cp or dyspnea. She is for OR removal of catheter today. Review of Systems Review of Systems: All systems reviewed and are unremarkable except as noted in HPI and below. Denies fever, chills, fatigue, headache, nasal congestion, sore throat, cough, chest pain, shortness of breath, palpitations, orthopnea, PND, abdominal pain, n/v/d, constipation, dysuria, hematuria, frequency, easy bruising or bleeding. Physical Exam Physical Exam: GENERAL: 74 yo obese elderly WF. A&Ox4. No distress. LUNGS: Clear to auscultation bilaterally. No W/R/R. CARDIOVASCULAR: Regular rate and rhythm w/ 4/6 STAN. PSYCHIATRIC: Cooperative. Appropriate mood and affect. SKIN: tunneled catheter noted exiting right chest wall with purulent drainage surrounding catheter noted. Surrounding skin erythematous and tender. Results & Data Results & Data Vital Signs (Past 12 Hours) Vital Signs Temp Pulse Resp BP Pulse Ox O2 Del Method 11/10/24 07:34 36.9 C 75 16 158/76 H 97 Room Air PG Care Time/CCT Total # of Minutes Spent Total Time Spent with Patient: Total time spent is greater than 50% in coordination of care (as documented) at patient's floor/unit and/or counseling patient: 36 minutes Coding Level of Care Code 74247 SUB INP/OBS CARE 2/35MIN Diagnoses Infection of hemodialysis catheter, initial encounter T82.7XXA Encounter type: initial encounter Thrombocytopenia D69.6 ESRD (end stage renal disease) on dialysis N18.6; Z99.2 Hypothyroidism E03.9 Diabetes E11.9 (1) Hemodialysis catheter infection Encounter type: initial encounter Qualified Code(s): T82.7XXA - Infection and inflammatory reaction due to other cardiac and vascular devices, implants and grafts, initial encounter
--- NOTE | 2024-11-10 13:09 | Consultation ---
Date of Consultation November 10, 2024 Assessment & Plan (1) Infection of exit site of hemodialysis catheter: Will remove permcath today and place a temp catheter tomorrow. If cultures neg will plan on new permcath on Thursday. I have discussed the risks options and benefits of the procedure with the patient. The patient understands the risks options and benefits and agrees to the procedure. History of Present Illness Reason for Consultation: Infected permcath Attending Physician: Phong Fair MD History of Present Illness This is a 74yo female who was admitted with an infected permcath. She is on dialysis and does have fluid overload between dialysis runs. Allergies Allergy/AdvReac Type Severity Reaction Status Date / Time cyclobenzaprine Allergy Intermediate Woozy--weak Verified 11/09/24 15:14 [From Flexeril] and out of control Home Medications Medication Instructions Recorded Confirmed Type acetaminophen 325 mg tablet 650 mg PO Q6 PRN Fever 11/06/21 11/09/24 History (Tylenol) atorvastatin 80 mg tablet 80 mg PO HS 11/06/21 11/09/24 History gabapentin 100 mg capsule 100 mg PO TID 11/06/21 11/09/24 History pantoprazole 40 mg tablet,delayed 40 mg PO BID 11/06/21 11/09/24 History release insulin glargine 100 unit/mL 10 unit subcut HS 04/11/22 11/09/24 History subcutaneous solution (Lantus U-100 Insulin) sucroferric oxyhydroxide 500 mg 500 mg PO TIDM 04/11/22 11/09/24 History chewable tablet (Velphoro) bisacodyl 10 mg rectal suppository 10 mg TN DAILY PRN Constipation 08/27/22 11/09/24 History (Dulcolax (bisacodyl)) cholecalciferol (vitamin D3) 125 125 mcg PO HS 08/27/22 11/09/24 History mcg (5,000 unit) tablet (Vitamin D3) multivitamin 1 tab PO HS 08/27/22 11/09/24 History polyethylene glycol 3350 17 See Rx Instructions .Route .COMPLEX 08/27/22 11/09/24 History gram/dose oral powder (Miralax) sennosides 8.6 mg-docusate sodium 1 tab-cap PO BID 08/27/22 11/09/24 History 50 mg tablet (Senokot-S) sodium phosphates 19 gram-7 118 ml TN UD PRN Constipation 08/27/22 11/09/24 History gram/118 mL enema (Fleet Enema) carboxymethylcellulose sodium 1 % 2 drp OPB BIDM 04/04/24 11/09/24 History eye drops (Artificial Tears (carboxymethylcellulose)) diclofenac sodium 1 % topical gel 2 g topical QID b/l hand pain 04/04/24 11/09/24 History levothyroxine 175 mcg tablet 175 mcg PO HS 04/04/24 11/09/24 History ondansetron HCl 4 mg tablet 4 mg PO 3XWK 04/04/24 11/09/24 History ondansetron HCl 4 mg tablet 4 mg PO Q6H PRN Nausea And Vomiting 04/04/24 11/09/24 History protein supplement See Rx Instructions .Route .COMPLEX 04/04/24 11/09/24 History sacubitril 24 mg-valsartan 26 mg 1 tab PO QDL 04/04/24 11/09/24 History tablet (Entresto) sucroferric oxyhydroxide 500 mg 500 mg PO DAILY PRN W/Snacks 04/04/24 11/09/24 History chewable tablet (Velphoro) torsemide 20 mg tablet 120 mg PO 2XWK 04/04/24 11/09/24 History vitamin B complex 1 tab PO HS 04/04/24 11/09/24 History insulin lispro 100 unit/mL 0 sliding scale dose continuous 05/03/24 11/09/24 History subcutaneous solution (Humalog subcutaneous infusion ACHS U-100 Insulin) midodrine 10 mg tablet 10 mg PO 3XWK #0 tabs 05/08/24 11/09/24 Rx morphine concentrate 100 mg/5 mL 10 mg (0.5 mL) PO 3XWK #30 mL 05/08/24 11/09/24 Rx (20 mg/mL) oral solution morphine concentrate 100 mg/5 mL 10 mg (0.5 mL) PO Q4H PRN Pain #30 05/08/24 11/09/24 Rx (20 mg/mL) oral solution mL midodrine 5 mg tablet 5 mg PO DIRECTED PRN SBP <95 11/09/24 11/09/24 History DURING DIALYSIS patiromer calcium sorbitex 8.4 8.4 g PO 4XWK 11/09/24 11/09/24 History gram oral powder packet (Veltassa) Patient History Medical History ESRD (end stage renal disease) on dialysis M,W,F at [facility] via permacath Parainfluenza type 1 infection Anemia of chronic disease History of severe sepsis Diabetes Hgb A1C 7.3 on 05/20/22 Aortic stenosis Moderate to severe per 08/2021 ECHO Coronary artery disease Denies stents or bypass Per cardio records - likely had prior LAD infarct (pt unaware of when); no ASA due to prior GI bleed Generalized weakness Shingles back-left flank onset 06/26/22 Diabetic ulcer of both feet 11/2021 Stable currently- had debridement 11/2021- wears [employer] boots custodial resident [facility] Encounter for removal of vascular catheter 08/2021 - Dr Inocencio Pablo (HD catheter) History of gastrointestinal bleeding 06/2021 No recent issues History of CVA (cerebrovascular accident) Several strokes ("many years since last stroke") Surgical History S/P arteriovenous (AV) graft placement 07/2022, [facility] History of open reduction and internal fixation (ORIF) procedure RT IM NAILING 08/06/22 AT [facility] [place] H/O foot surgery 08/2021 - right calcaneal resection 2nd to osteomyelitis - Dr Dick Naqvi Family History Other No pertinent family history Social History Smoking Status: Never smoker Hx Alcohol Use: No Hx Substance Use: No Preferred Language: Irish Communication Ability: Effective Urologist Physician Required: No Beliefs That Will Affect Care: None Current Living Situation: Assisted Current Living Situation Comment: [facility] Feels Safe at Home: Yes Safety Concerns: Feels Safe At This Time Assistive Devices: Glasses and Wheelchair Review of Systems Review of Systems: All systems reviewed & are unremarkable except as noted in HPI & below Physical Exam Constitutional: WD/WN, vitals as above Respiratory: normal respiratory effort; no respiratory distress Cardiovascular: Rate/Rhythm: regular rate and regular rhythm Chest (Breasts): Additional Comments: permcath site erythematous Gastrointestinal (Abdomen): normal bowel sounds, soft, nontender, no hepatosplenomegaly Neurologic: CN's II-XI intact bilaterally and moves all extremities Psychiatric: A+Ox3, euthymic affect Results & Data Vital Signs (Past 12 Hours) Vital Signs Temp Pulse Resp BP Pulse Ox O2 Del Method 11/10/24 12:27 36.8 C 65 20 152/89 H 100 Room Air 11/10/24 07:34 36.9 C 75 16 158/76 H 97 Room Air
[2024-11-10] MEDS: LIDOCAINE 1% LOCAL 20 ML VIAL ONE (13:50)
[2024-11-10] MEDS: MIDAZOLAM HCL 1 MG/ML 2ML VIAL ONE (14:19)
--- NOTE | 2024-11-10 14:25 | Operative Report ---
Post Operative Report Pre & Post Diagnosis Operation Date: 11/14/24 09:50 pre op dx: infected permcath post op dx: infected permcat I identified the patient and participated in the time-out.: Yes Procedure Operation Date: 11/14/24 09:50 removal of permcath Surgeon Inocencio Pablo MD Software Release Engineer none Estimated Blood Loss 0 Findings Consistent with Post-Op Diagnosis Specimens none Anesthesia Type Local Complications none Disposition Accompanied Patient To Recovery: No Disposition: Recovery Room Indications Patient with an infected permcath. Removal is recommended. I have discussed the risks options and benefits of the procedure with the patient. The patient understands the risks options and benefits and agrees to the procedu Description of Procedure The patient was taken to the angio suite and placed in the supine position. The patient was identified and a timeout performed. The right side of the neck, chest wall and catheter were prepped and draped in a sterile manner. Local anesthesia was then accomplished. Using sharp and blunt dissection, the cuff of the permcath was freed up from the surrounding fibrous tissue. The permcath and cuff were completely removed. Pressure was then applied and adequate hemostasis was obtained. A sterile dressing was then applied. The patient left the operation room in satisfactory condition and tolerated the procedure well. All needle and sponge counts were correct at the end of the procedure. I attest to the content of the Intraoperative Record and any orders documented therein. Any exceptions are noted below.
[2024-11-10] MEDS: cefTAZidime 1,000 MG in DEXTROSE 5 % MINI-B 50 ML IV SCH (16:57)
[2024-11-11] MEDS ORDERED: Nursing to Pharmacy Communication SCH ×2 (00:30→10:30)
[2024-11-11 02:07] LABS: Appearance Urine Clear (Clear); Bacteria Urine Automated None Seen (None Seen); Cast Urine Automated 0-2 /lpf (0-2); Glucose Urine UA Trace (Negative); RBC Urine Automated 0-2 /hpf (0-2); WBC Urine Automated 0-5 /hpf (0-5)
[2024-11-11] MEDS: INSULIN ASPART PER UNIT CHARGE SC SCH ×2 (06:00→16:02)
[2024-11-11 08:07] LABS: Hematocrit (blood only) 31.2 % (37.0-47.0); Hemoglobin 10.0 g/dl (12.0-16.0); Immature Granulocytes # (auto) 0.02 K/uL (0.01-0.20); Immature Granulocytes % (auto) 0.3 %; Mean Corpuscular Hemoglobin 30.7 pg (25.0-34.0); Mean Corpuscular Volume 95.7 fL (80.0-100.0); Platelet Count 106 K/uL (130-400); RDW Standard Deviation 49.9 fL (36.4-46.3); Red Blood Count 3.26 M/uL (4.20-5.40); White Blood Count 5.98 K/ul (4.8-10.8)
[2024-11-11 08:28] LABS: Anion Gap 9.0 (3-11); Blood Urea Nitrogen 46.0 mg/dl (6-23); Calcium 8.0 mg/dl (8.6-10.3); Carbon Dioxide 25.0 mmol/L (21-32); Chloride 96.0 mmol/L (98-107); Creatinine Clr Calc Pharmacy 10.5 ml/min; Glucose 79.0 mg/dl (70-99(Fasting)); Magnesium 1.9 mg/dl (1.7-2.4); Potassium 4.5 mmol/L (3.5-5.1); Sodium 130.0 mmol/L (136-145)
--- NOTE | 2024-11-11 09:08 | History & Physical Bridge Note ---
Date of Service November 11, 2024 History & Physical Bridge Note Patient had positive culture of the tip of the catheter yesterday. We therefore will place a temporary dialysis catheter today for dialysis purposes. I have discussed the risks options and benefits of the procedure with the patient. The patient understands the risks options and benefits and agrees to the procedure. I have examined the patient, reviewed the History & Physical and in the interval since the performance of the History & Physical I have noted the following changes of clinical significance: no changes noted
--- NOTE | 2024-11-11 09:36 | Pre Anesthesia Assessment ---
Date of Service November 11, 2024 Pre Sedation Assessment Vital Signs Temp Pulse Pulse Resp BP Pulse Ox O2 Del Method 11/11/24 09:12 37.0 C 76 20 169/80 H 99 Room Air 11/11/24 07:24 36.7 C 62 18 148/69 H 97 Room Air 11/10/24 20:37 36.8 C 64 18 117/68 95 Room Air 11/10/24 15:13 36.6 C 82 16 122/74 96 Room Air 11/10/24 14:05 36.9 C 77 16 134/78 98 Room Air 11/10/24 13:50 81 20 139/82 100 Room Air 11/10/24 13:45 83 20 149/78 H 100 Room Air 11/10/24 13:40 89 20 179/93 H 100 Room Air 11/10/24 13:35 89 20 164/78 H 100 Room Air 11/10/24 13:30 74 20 162/73 H 100 Room Air 11/10/24 13:25 77 20 174/80 H 100 Room Air 11/10/24 12:27 36.8 C 65 20 152/89 H 100 Room Air Cardiovascular RRR, no murmur, no edema Respiratory normal respiratory effort, lungs clear to auscultation Pre-Sedation Airway Assessment Smoking Status: Never smoker Hx Sleep Apnea: No Short, Thick Neck: Yes Thyromental Distance: > or= 3.5 Finger Breadths Oral Cavity: + Loose Teeth Mallampati Class: II ASA: ASA3 NPO Status Date of Last Intake of Fluids: 11/11/24 Time of Last Intake of Fluids: 00:01 Date of Last Intake of Solid Food: 11/11/24 Time of Last Intake of Solid Foods: 00:01 Procedure Planning Contraindications for Sedation: none Current Medications Reviewed: Yes Notes The planned sedation has been discussed with the patient. Informed Consent was obtained. I have identified the patient, determined the appropriateness of sedation and have assessed the patient immediately prior to the procedure. All medicine(s) and interventions are by my order.
[2024-11-11] MEDS: MIDAZOLAM HCL 1 MG/ML 2ML VIAL ONE (09:48)
[2024-11-11] MEDS: LIDOCAINE 1% LOCAL 20 ML VIAL ONE (09:59)
--- NOTE | 2024-11-11 10:03 | Post Anesthesia Assessment ---
Date of Service November 11, 2024 Post Sedation Assessment Vital Signs Temp Pulse Pulse Resp BP Pulse Ox O2 Del Method 11/11/24 09:57 81 16 142/67 H 100 Oxymask 11/11/24 09:53 82 16 160/80 H 100 Oxymask 11/11/24 09:48 84 18 170/100 H 100 Oxymask 11/11/24 09:45 85 18 170/91 H 100 Oxymask 11/11/24 09:12 37.0 C 76 20 169/80 H 99 Room Air 11/11/24 07:24 36.7 C 62 18 148/69 H 97 Room Air 11/10/24 20:37 36.8 C 64 18 117/68 95 Room Air 11/10/24 15:13 36.6 C 82 16 122/74 96 Room Air 11/10/24 14:05 36.9 C 77 16 134/78 98 Room Air 11/10/24 13:50 81 20 139/82 100 Room Air 11/10/24 13:45 83 20 149/78 H 100 Room Air 11/10/24 13:40 89 20 179/93 H 100 Room Air 11/10/24 13:35 89 20 164/78 H 100 Room Air 11/10/24 13:30 74 20 162/73 H 100 Room Air 11/10/24 13:25 77 20 174/80 H 100 Room Air 11/10/24 12:27 36.8 C 65 20 152/89 H 100 Room Air O2 Flow Rate 11/11/24 09:57 4 11/11/24 09:53 4 11/11/24 09:48 4 11/11/24 09:45 4 11/11/24 09:12 11/11/24 07:24 11/10/24 20:37 11/10/24 15:13 11/10/24 14:05 11/10/24 13:50 11/10/24 13:45 11/10/24 13:40 11/10/24 13:35 11/10/24 13:30 11/10/24 13:25 11/10/24 12:27 Recovery Score Activity: Moves 4 extremities Respiration: Deep Breath/Cough Circulation: +/-20% PreAnes Value Consciousness: Fully Awake Oxygen Saturation: > 92% On Room Air Post Anesthesia Score: 10 Discharge Sedation Level of Care: Fast Track Phase II Post Sedation Plan On clinical assessment, the patient appears to have tolerated the sedation without complications. Patient is recovering as anticipated. Patient will continue to be monitored by nursing and may be discharged when sedation discharge criteria are met per below protocol. Upon Completions of procedure up to 15 minutes continue every 5 minute vital signs and the P.A.R. score; then discharge to a Phase I or Fast Track to Phase II per the following guidelines: * Discharge Patient to appropriate Phase II area if PAR is 8 or greater or return to pre- procedure baseline. The post - procedure orders will be as directed. * If PAR score is less than 8 or not return to pre-procedure baseline then patient will follow Phase I monitoring till PAR is reached for Phase II. The Phase I may be done in procedure room or may call to secure a Phase I area. * If naloxone or flumazenil are used for reversal, hold in Phase I for continued monitoring from when last reversal dose was given for a minimum of 60 minutes or longer pending the nurse and/or physician discretion of patient condition before discharge to Phase II. Please call the Sedation Physician to re-evaluate and complete post-note for discharge to Phase II area. Do NOT discharge from procedure sedation or Phase 1 until post- sedation evaluation note is complete by procedure /sedation MD Sedation Discharge Instructions to be given to the patient at discharge to home.
--- NOTE | 2024-11-11 10:17 | Operative Report ---
Post Operative Report Pre & Post Diagnosis Operation Date: 11/14/24 09:50 pre op dx: end stage renal disease post op dx: end stage renal disease I identified the patient and participated in the time-out.: Yes Procedure Operation Date: 11/14/24 09:50 insertion of temporary right femoral dialysis cath, ultrasound of right common femoral vein, fluoro for positioning, moderate conscious sedation ([id number]) Surgeon Inocencio Pablo MD Branch Store Manager none Estimated Blood Loss 0 Findings Consistent with Post-Op Diagnosis Specimens none Anesthesia Type RN Sedation Complications none Disposition Accompanied Patient To Recovery: No Disposition: Recovery Room Indications This is a 74-year-old female who had an infected PermCath in which was removed yesterday. She is in need of dialysis. She had positive catheter cultures recommended temporary line. I have discussed the risks options and benefits of the procedure with the patient. The patient understands the risks options and benefits and agrees to the procedure. Description of Procedure Patient was taken to the angio suite and placed in the supine position. The right groin were prepped and draped in a sterile manner. The patient was identified and a timeout performed. Local anesthesia was then administered to the appropriate areas of the right groin. Ultrasound was then used to locate the right common femoral vein. The vein compressed easily, had no filing defects, and was patent. The vein was then punctured under direct ultrasound imaging. A guidewire was then passed centrally under fluoroscopic imaging. The puncture site was then dilated. The temporary dialysis catheter was then inserted to a central position in the inferior vena cava. The catheter was then sutured in place using nylon sutures. Both ports aspirated and flushed easily and were then packed with heparin. A sterile dressing was applied to the catheter. The patient left the operation room in satisfactory condition and tolerated the procedure well. All needle and sponge counts were correct at the end of the procedure. I attest to the content of the Intraoperative Record and any orders documented therein. Any exceptions are noted below.
[2024-11-11] MEDS ORDERED: SODIUM CHLORIDE 0.9% 1,000 ML IV PRN (10:29)
[2024-11-11] MEDS: MIDODRINE HCL 10 MG TAB PO SCH (10:37)
[2024-11-11] MEDS: MoRPHine SULFATE 10 MG/0.5 ML UDP PO SCH (10:37)
--- NOTE | 2024-11-11 11:46 | Nephrology Progress Note ---
Date of Service November 11, 2024 Assessment & Plan (1) Infection of exit site of hemodialysis catheter: Plan: these infections are not treatable w/ systemic antibiotics cath tip w/ S epi; other cxs pending -TDC removed 11/10, temp cath placed 11/11>> vascular assistance appreciated; new L sided TDC for 11/14 assuming cxs negative -monitor for sepsis -- no concerns so far -continue abtx 7-14 days and narrow as feasible > could likely go to just daptomycin now -will follow up on [facility] exit site and blood cultures as they post -follow pending blood cutlures here Care communicated w/ LIZET Wright re abtx, length of tx, cx results to date via TText; we are in agreement. (2) ESRD (end stage renal disease) on dialysis: Plan: she has chronic volume overload and HFpEF w/ ; she is on RA currently; had full HD 11/10 -plan next HD today >after that HD on 11/14 after TDC placement Admission and Anticipated Discharge Date Admission Date: November 09, 2024 Physical Exam 2 Constitutional: well developed, well nourished and + physical limitations; no acute distress Eyes: EOM intact bilaterally ENMT: Mouth: + dry oral mucous membranes Neck: no nuchal rigidity Respiratory: normal respiratory effort Auscultation: + diminished lung sounds Gastrointestinal (Abdomen): Inspection/Auscultation: normal bowel sounds P ercussion/Palpation: abdomen soft; abdomen nontender Musculoskeletal: Extremities: strength 5/5 throughout Skin: no rashes, warm and dry Results & Data Vital Signs (Past 12 Hours) Vital Signs Temp Pulse Pulse Resp BP Pulse Ox O2 Del Method 11/11/24 11:05 74 18 144/72 H 95 Room Air 11/11/24 10:41 36.5 C 72 18 123/67 98 Room Air 11/11/24 10:15 36.6 C 74 18 145/68 H 100 Room Air 11/11/24 10:02 80 16 120/65 98 Room Air 11/11/24 09:57 81 16 142/67 H 100 Oxymask 11/11/24 09:53 82 16 160/80 H 100 Oxymask 11/11/24 09:48 84 18 170/100 H 100 Oxymask 11/11/24 09:45 85 18 170/91 H 100 Oxymask 11/11/24 09:12 37.0 C 76 20 169/80 H 99 Room Air 11/11/24 07:24 36.7 C 62 18 148/69 H 97 Room Air O2 Flow Rate 11/11/24 11:05 11/11/24 10:41 11/11/24 10:15 11/11/24 10:02 0 11/11/24 09:57 4 11/11/24 09:53 4 11/11/24 09:48 4 11/11/24 09:45 4 11/11/24 09:12 11/11/24 07:24 Laboratory Results 11/11/24 07:16 11/11/24 07:16 [facility] cxs (as of 11/10) NGTD blood and swab Cath tip Cx S epidermidis
--- NOTE | 2024-11-11 11:55 | Hospitalist Progress Note ---
Date of Service November 11, 2024 Assessment & Plan (1) Hemodialysis catheter infection: (2) Thrombocytopenia: (3) ESRD (end stage renal disease) on dialysis: (4) Hypothyroidism: (5) Diabetes: Plan #Infected HD tunneled catheter - Admitted to med/surg unit - VS per unit protocol - OOB w/ assistance - PT/OT eval and tx - Consult vascular for catheter removal, tip should be cultured upon removal- growing staph epidermidis prelim - Made NPO this AM after breakfast for OR catheter removal - Continue empiric abx coverage but given h/o VRE, changed to dapto + fortaz--will de-escalate on 11/11 to just Dapto - Blood cultures collected x2 sets, NGTD - Wound cultures collected--pinpoint growth present and reincubating - For new HD catheter site to be placed on Tuesday 11/14 #ESRD - Continue HD MWF - [facility] nephrology consulted, appreciate assistance - Renal/CC diet can be resumed following OR catheter removal #DMT2 - Continue basal/bolus - Renal + CC diet as above - Accuchecks ac and hs - Last a1c 6.9% in October 2024 #Ischemic cardiomyopathy/HFrEF/CAD - Continue torsemide and entresto - Atorvastatin held while on Dapto #Hypothyroidism - Continue levothyroxine #Chronic pain - Continue liquid morphine and fentanyl patch VTE ppx with SCDs. Platelets 106 today. Defer further heparin products. AM labs ordered. De-escalate abx as noted above. Follow culture data. Plan of care d/w Dr. Fair. Admission and Anticipated Discharge Date Admission Date: November 09, 2024 Supervising Physician Co-Signing Physician Notes The patient was not seen by me. The chart was reviewed. Case discussed with LIZET Rodriguez. Agree with assessment and plan Subjective Saida was seen on rounds this afternoon while in HD treatment. She is resting comfortably, still a little groggy from anesthesia from earlier procedure to remove tunneled catheter. No complaints, area is less red and less tender. Review of Systems 2 Review of Systems: All systems reviewed and are unremarkable except as noted in HPI and below. Denies fever, chills, fatigue, headache, nasal congestion, sore throat, cough, chest pain, shortness of breath, palpitations, orthopnea, PND, abdominal pain, n/v/d, constipation, dysuria, hematuria, frequency, easy bruising or bleeding. Physical Exam 2 Physical Exam: GENERAL: 74 yo obese elderly WF. A&Ox4. No distress. LUNGS: Clear to auscultation bilaterally. No W/R/R. CARDIOVASCULAR: Regular rate and rhythm w/ 4/6 STAN. PSYCHIATRIC: Cooperative. Appropriate mood and affect. SKIN: tunneled catheter now removed from R chest wall with reduction in erythema and tenderness. Results & Data Results & Data Vital Signs (Past 12 Hours) Vital Signs Temp Pulse Pulse Pulse Resp BP BP 11/11/24 11:30 56 L 125/51 L 11/11/24 11:05 74 18 144/72 H 11/11/24 11:02 59 L 121/55 L 11/11/24 10:55 36.5 C 58 L 11/11/24 10:41 36.5 C 72 18 123/67 11/11/24 10:15 36.6 C 74 18 145/68 H 11/11/24 10:02 80 16 120/65 11/11/24 09:57 81 16 142/67 H 11/11/24 09:53 82 16 160/80 H 11/11/24 09:48 84 18 170/100 H 11/11/24 09:45 85 18 170/91 H 11/11/24 09:12 37.0 C 76 20 169/80 H 11/11/24 07:24 36.7 C 62 18 148/69 H Pulse Ox O2 Del Method O2 Flow Rate 11/11/24 11:30 11/11/24 11:05 95 Room Air 11/11/24 11:02 11/11/24 10:55 11/11/24 10:41 98 Room Air 11/11/24 10:15 100 Room Air 11/11/24 10:02 98 Room Air 0 11/11/24 09:57 100 Oxymask 4 11/11/24 09:53 100 Oxymask 4 11/11/24 09:48 100 Oxymask 4 11/11/24 09:45 100 Oxymask 4 11/11/24 09:12 99 Room Air 11/11/24 07:24 97 Room Air Laboratory Results 11/11/24 07:16 11/11/24 07:16 PG Care Time/CCT Total # of Minutes Spent Total Time Spent with Patient: Total time spent is greater than 50% in coordination of care (as documented) at patient's floor/unit and/or counseling patient: 36 minutes Coding Level of Care Code 58858 SUB INP/OBS CARE 2/35MIN Diagnoses Infection of hemodialysis catheter, initial encounter T82.7XXA Encounter type: initial encounter Thrombocytopenia D69.6 ESRD (end stage renal disease) on dialysis N18.6; Z99.2 Hypothyroidism E03.9 Diabetes E11.9 (1) Hemodialysis catheter infection Encounter type: initial encounter Qualified Code(s): T82.7XXA - Infection and inflammatory reaction due to other cardiac and vascular devices, implants and grafts, initial encounter
[2024-11-11 14:22] LABS: Hep B Surface Ag with confirm Negative (Negative)
[2024-11-11] MEDS: EPOETIN ALFA 10,000 UNITS/ML VIAL IV ONE (14:42)
[2024-11-11] MEDS: DAPTOmycin 700 MG in SYRINGE 0 ML IV SCH (17:52)
[2024-11-12 06:09] LABS: Anion Gap 8.0 (3-11); Blood Urea Nitrogen 27.0 mg/dl (6-23); Calcium 8.4 mg/dl (8.6-10.3); Carbon Dioxide 26.0 mmol/L (21-32); Chloride 98.0 mmol/L (98-107); Creatinine Clr Calc Pharmacy 15.4 ml/min; Glucose 65.0 mg/dl (70-99(Fasting)); Potassium 3.9 mmol/L (3.5-5.1); Sodium 132.0 mmol/L (136-145)
[2024-11-12 06:58] LABS: Hematocrit (blood only) 34.8 % (37.0-47.0); Hemoglobin 11.6 g/dl (12.0-16.0); Immature Granulocytes # (auto) 0.01 K/uL (0.01-0.20); Immature Granulocytes % (auto) 0.1 %; Mean Corpuscular Hemoglobin 32.0 pg (25.0-34.0); Mean Corpuscular Volume 96.1 fL (80.0-100.0); Platelet Count 109 K/uL (130-400); RDW Standard Deviation 49.0 fL (36.4-46.3); Red Blood Count 3.62 M/uL (4.20-5.40); White Blood Count 6.73 K/ul (4.8-10.8)
[2024-11-12] MEDS: CARBOHYDRATES FOR HYPOGLYCEMIA PO PRN (07:28)
[2024-11-12] MEDS: TORSEMIDE 20 MG TAB PO SCH (08:02)
--- NOTE | 2024-11-12 23:14 | Hospitalist Progress Note ---
Date of Service November 12, 2024 Assessment & Plan (1) Hemodialysis catheter infection: Plan: Afebrile, non-toxic physical exam. Continue empiric daptomycin 700mg IV q48 hours. (2) Thrombocytopenia: Plan: cf., platelet 123 (11/09/2024, 12:57pm). cf., platelet 114 (11/10/2024, 7:15am). cf., platelet 106 (11/11/2024, 7:16am). cf., platelet 109 (11/12/2024, 5:35am). cf., chronic thrombocytopenia with progressive decline in baseline platelet count range, 126 (05/03/2024, 1:10pm) to 54 (05/16/2024, 4:30am). Patient reports no mucosal bleeding on 11/12/2024. Etiology of chronic thrombocytopenia remains unclear, but is probably due to patient's home- scheduled protonix 40mg PO bid. At this time, I have opted to hold off further platelet count testing while patient remains in [facility], in order to conserve and preserve patient's sylvester platelet supply. (3) ESRD (end stage renal disease) on dialysis: Plan: Continue HD on a Thu-Thu-Thu schedule as per patient's report, with next HD on Thu (11/15/2024), after which, patient will be D/C'd back to her home. (4) Hypothyroidism: Plan: Patient has no goiter, lid lag, or proptosis on exam. Patient appears to be euthyroid on synthroid 175ug PO qam with screening TSH normal at 1.894 uIU/mL (10/18/2024, 3:50am). (5) Diabetes: Plan: Long-term glycemic control remains unknown, despite HbA1c 6.9% (10/18/2024, 3:50am), which might suggest, at first glance, that long-term glycemic control is modest. The reason that long-term glycemic control remains unknown in this patient is due to patient's chronic normocytic, normochromic anemia with baseline Hb range, 9.5 - 11.5 g/dL (08/04/2021 - 10/04/2024). Of note, in diabetic patients who are anemic, increased RBC turnover leads to concomitant reductions in both Hb and HbA1c levels, thereby rendering HbAlc levels meaningless in assessing long-term glycemic control. Hence, attention turns towards serum glucose levels: cf., serum glucose 176 mg/dL (11/09/2024, 12:57pm). cf., serum glucose 170 mg/dL (11/09/2024, 2:21pm). cf., serum glucose 72 mg/dL (11/10/2024, 7:15am). cf., serum glucose 79 mg/dL (11/11/2024, 7:16am). cf., serum glucose 65 mg/dL (11/12/2024, 5:35am). cf., POC glucose 66 mg/dL (11/12/2024, 7:26am). cf., POC glucose 68 mg/dL (11/12/2024, 7:28am). cf., POC glucose 87 mg/dL (11/12/2024, 7:56am). cf., POC glucose 119 mg/dL (11/12/2024, 11:41am). cf., POC glucose 97 mg/dL (11/12/2024, 4:37pm). cf., POC glucose 203 mg/dL (11/12/2024, 8:30pm). Given the labile nature of patient's short-term glycemic control, I have opted to D/C immediately patient's home-scheduled lantus 10 units SQ qha, hospital-started lispro insulin sliding scale qac + qhs, and will let the patient's POC glucose levels run untreated, irrespective of how high patient's POC glucose levels may rise tonight. Plan #Infected HD tunneled catheter - Admitted to med/surg unit - VS per unit protocol - OOB w/ assistance - PT/OT eval and tx - Consult vascular for catheter removal, tip should be cultured upon removal- growing staph epidermidis prelim - Made NPO this AM after breakfast for OR catheter removal - Continue empiric abx coverage but given h/o VRE, changed to dapto + fortaz--will de-escalate on 11/11 to just Dapto - Blood cultures collected x2 sets, NGTD - Wound cultures collected--pinpoint growth present and reincubating - For new HD catheter site to be placed on Tuesday 11/14 #ESRD - Continue HD MWF - [facility] nephrology consulted, appreciate assistance - Renal/CC diet can be resumed following OR catheter removal #DMT2 - Continue basal/bolus - Renal + CC diet as above - Accuchecks ac and hs - Last a1c 6.9% in October 2024 #Ischemic cardiomyopathy/HFrEF/CAD - Continue torsemide and entresto - Atorvastatin held while on Dapto #Hypothyroidism - Continue levothyroxine #Chronic pain - Continue liquid morphine and fentanyl patch VTE ppx with SCDs. Platelets 106 today. Defer further heparin products. AM labs ordered. De-escalate abx as noted above. Follow culture data. Plan of care d/w Dr. Fair. Admission and Anticipated Discharge Date Admission Date: November 09, 2024 Subjective "I'm fine. No complaints. I will get my permanent dialysis catheter on Thursday (11/15/2024) with Vascular Surgeon Dr. Inocencio Pablo, and then I can go home." Review of Systems Constitutional: Negative for antecedent/coincident fevers, chills, diaphoresis, cough, wheeze, sore throat, hemoptysis, chest pains, palpitations, pleurisy, nausea, vomiting, diarrhea, abdominal pain, pelvic pain, hematemesis, hematochezia, melena, hematuria, dysuria, frequency, urgency, headaches, dizziness, lightheadedness, visual changes, hearing changes, weakness, falls, syncope, trauma, travel history, sick contacts, or food/drug ingestions novel or new. All other review of systems are reported as negative by the patient on 11/12/2024. Physical Exam Constitutional: General: Comfortable, cooperative, coherent. Patient speaks in complete, fluent, and articulate sentences without pause, interruption, cough, or wheeze. HEENT: Normocephalic, atraumatic. Pupils equally round and reactive to light. Extra-ocular muscles intact. No nystagmus, gaze paresis, anisocoria, miosis, mydriasis, hyphema, scleral injection, conjunctivitis, or pterygium. No rhinorrhea. No otorrhea. No pharyngeal erythema, edema, or discharge. Neck: Supple, no stridor, bruit, or hepato-jugular reflux. No lid lag. No exophthalmos/proptosis. Jugular venous pressure is estimated to be 3 cm above the sternal angle of Miguelangel, which in turn, is 5 cm above the level of the right atrium; with jugular venous pressure estimated to be 8 cm, then, there is no jugular venous distention on 11/12/2024. Lymphatics: Negative for anterior/posterior cervical, supraclavicular, infraclavicular, axillary, epitrochlear, or inguinal adenopathy. Chest: Symmetric rise and fall with respirations. Non-tender to palpation. Lungs: Clear to auscultation and percussion. No audible expiratory wheeze, egophony, pectoriloquy, increase in tactile fremitus, or flatness/dullness to percussion at the bases. Heart: Regular rate. Regular rhythm. S1 and S2 noted. No S3 or S4 summation gallop. No tripartite friction rub. Grade III/ early systolic murmur @ LLSB without radiation to the carotids, axilla, or back, and which remains invariant in regards to the respiratory cycle. Abdomen: Soft, non-tender, non-distended. No rebound, guarding, Cerda' s sign, or organomegaly. Bowel sounds auscultated in all 4 quadrants. Extremities: No clubbing, cyanosis, or edema in upper extremities or lower extremities bilaterally. 2+ pedal pulses bilaterally. Skin: No decubitus ulcer, exanthem, or enanthem. Genito-urinary: No urethral discharge. No parker catheter. Neurology: No myoclonus, tremors, or tics. Psychiatry: No homicidal ideation. No suicidal ideation. No flat affect; smiles appropriately. Results & Data Results & Data Vital Signs (Past 12 Hours) Vital Signs Temp Pulse Resp BP Pulse Ox O2 Del Method 11/12/24 19:53 36.3 C L 67 17 170/84 H 99 Room Air 11/12/24 14:58 36.9 C 68 18 145/71 H 96 Room Air Laboratory Results Abnormal lab results 11/12/24 11/12/24 11/12/24 Range/Units 05:35 07:26 07:28 RBC 3.62 L (4.20-5.40) M/uL Hgb 11.6 L (12.0-16.0) g/dl Hct 34.8 L (37.0-47.0) % RDW Std Deviation 49.0 H (36.4-46.3) fL Plt Count 109 L (130-400) K/uL [place] # (Auto) 0.70 H (0.11-0.59) K/uL Sodium 132 L (136-145) mmol/L BUN 27 H (6-23) mg/dl Creatinine 3.44 H D (0.6-1.2) mg/dl BUN/Creatinine Ratio 7.8 L (10-20) Glucose 65 L (70-99(Fasting)) mg/dl POC Glucose 66 L* 68 L* (70-99) mg/dl Calcium 8.4 L (8.6-10.3) mg/dl 11/12/24 11/12/24 Range/Units 11:41 20:30 RBC (4.20-5.40) M/uL Hgb (12.0-16.0) g/dl Hct (37.0-47.0) % RDW Std Deviation (36.4-46.3) fL Plt Count (130-400) K/uL [place] # (Auto) (0.11-0.59) K/uL Sodium (136-145) mmol/L BUN (6-23) mg/dl Creatinine (0.6-1.2) mg/dl BUN/Creatinine Ratio (10-20) Glucose (70-99(Fasting)) mg/dl POC Glucose 119 H 203 H (70-99) mg/dl Calcium (8.6-10.3) mg/dl PG Care Time/CCT Total # of Minutes Spent Total Time Spent with Patient: Total time spent is greater than 50% in coordination of care (as documented) at patient's floor/unit and/or counseling patient: Coding Level of Care Code 88416 SUB INP/OBS CARE 2/35MIN Diagnoses Infection of hemodialysis catheter, initial encounter T82.7XXA Encounter type: initial encounter Thrombocytopenia D69.6 ESRD (end stage renal disease) on dialysis N18.6; Z99.2 Hypothyroidism E03.9 Diabetes E11.9 (1) Hemodialysis catheter infection Encounter type: initial encounter Qualified Code(s): T82.7XXA - Infection and inflammatory reaction due to other cardiac and vascular devices, implants and grafts, initial encounter
--- NOTE | 2024-11-13 12:05 | Nephrology Progress Note ---
Date of Service November 13, 2024 Assessment & Plan (1) Infection of exit site of hemodialysis catheter: Plan: these infections are not treatable w/ systemic antibiotics cath tip w/ S epi; as is exit site of cath; blood cxs NGTD -TDC removed 11/10, temp cath placed 11/11>> vascular assistance appreciated; new L sided TDC for 11/14 assuming cxs negative -monitor for sepsis -- no concerns so far -continue abtx 10 days daptomycin -will follow up on [facility] exit site and blood cultures as they post -follow pending blood cultures here (2) ESRD (end stage renal disease) on dialysis: Plan: she has chronic volume overload and HFpEF w/ ; she is on RA currently; had full HD 11/10 -plan next HD on 11/14 after TDC placement Admission and Anticipated Discharge Date Admission Date: November 09, 2024 Subjective no interval events clinically. no sob, no worsening edema; pain controlled LB though generally still some tenderness/redness over exit tunne. Review of Systems 2 Review of Systems: All systems reviewed & are unremarkable except as noted in Subjective Physical Exam 2 Constitutional: well developed (sitting up in chair on RA), well nourished and + physical limitations; no acute distress Eyes: EOM intact bilaterally ENMT: Mouth: + dry oral mucous membranes Neck: no nuchal rigidity Respiratory: normal respiratory effort Auscultation: + diminished lung sounds Gastrointestinal (Abdomen): Inspection/Auscultation: normal bowel sounds P ercussion/Palpation: abdomen soft; abdomen nontender Musculoskeletal: Extremities: strength 5/5 throughout Skin: no rashes, warm and dry Results & Data Vital Signs (Past 12 Hours) Vital Signs Temp Pulse Resp BP Pulse Ox O2 Del Method 11/13/24 08:03 36.8 C 71 18 132/74 98 Room Air Laboratory Results 11/12/24 05:35 11/12/24 05:35
[2024-11-13] MEDS ORDERED: SODIUM CHLORIDE 0.9% 1,000 ML IV PRN (20:20)
--- NOTE | 2024-11-13 20:37 | Hospitalist Progress Note ---
Date of Service November 13, 2024 Assessment & Plan (1) Hemodialysis catheter infection: Plan: Afebrile, non-toxic physical exam. Continue empiric daptomycin 700mg IV q48 hours. (2) Thrombocytopenia: Plan: cf., platelet 123 (11/09/2024, 12:57pm). cf., platelet 114 (11/10/2024, 7:15am). cf., platelet 106 (11/11/2024, 7:16am). cf., platelet 109 (11/12/2024, 5:35am). cf., chronic thrombocytopenia with progressive decline in baseline platelet count range, 126 (05/03/2024, 1:10pm) to 54 (05/16/2024, 4:30am). Patient reports no mucosal bleeding on 11/12/2024. Etiology of chronic thrombocytopenia remains unclear, but is probably due to patient's home- scheduled protonix 40mg PO bid. At this time, I have opted to hold off further platelet count testing while patient remains in [facility], in order to conserve and preserve patient's sylvester platelet supply. (3) ESRD (end stage renal disease) on dialysis: Plan: Continue HD on a Thu-Thu-Thu schedule as per patient's report, with next HD on Thu (11/15/2024), after which, patient will be D/C'd back to her home. (4) Hypothyroidism: Plan: Patient has no goiter, lid lag, or proptosis on exam. Patient appears to be euthyroid on synthroid 175ug PO qam with screening TSH normal at 1.894 uIU/mL (10/18/2024, 3:50am). (5) Diabetes: Plan: Long-term glycemic control remains unknown, despite HbA1c 6.9% (10/18/2024, 3:50am), which might suggest, at first glance, that long-term glycemic control is modest. The reason that long-term glycemic control remains unknown in this patient is due to patient's chronic normocytic, normochromic anemia with baseline Hb range, 9.5 - 11.5 g/dL (08/04/2021 - 10/04/2024). Of note, in diabetic patients who are anemic, increased RBC turnover leads to concomitant reductions in both Hb and HbA1c levels, thereby rendering HbAlc levels meaningless in assessing long-term glycemic control. Hence, attention turns towards serum glucose levels: cf., serum glucose 176 mg/dL (11/09/2024, 12:57pm). cf., serum glucose 170 mg/dL (11/09/2024, 2:21pm). cf., serum glucose 72 mg/dL (11/10/2024, 7:15am). cf., serum glucose 79 mg/dL (11/11/2024, 7:16am). cf., serum glucose 65 mg/dL (11/12/2024, 5:35am). cf., POC glucose 66 mg/dL (11/12/2024, 7:26am). cf., POC glucose 68 mg/dL (11/12/2024, 7:28am). cf., POC glucose 87 mg/dL (11/12/2024, 7:56am). cf., POC glucose 119 mg/dL (11/12/2024, 11:41am). cf., POC glucose 97 mg/dL (11/12/2024, 4:37pm). cf., POC glucose 203 mg/dL (11/12/2024, 8:30pm). Given the labile nature of patient's short-term glycemic control, I opted to D/C immediately patient's home-scheduled lantus 10 units SQ qha, hospital-started lispro insulin sliding scale qac + qhs, and will let the patient's POC glucose levels run untreated, irrespective of how high patient's POC glucose levels may rise. cf., POC glucose 119 mg/dL (11/12/2024, 11:41am). cf., POC glucose 97 mg/dL (11/12/2024, 4:37pm). cf., POC glucose 203 mg/dL (11/12/2024, 8:30pm). cf., POC glucose 114 mg/dL (11/13/2024, 7:29am). cf., POC glucose 146 mg/dL (11/13/2024, 11:22am). cf., POC glucose 169 mg/dL (11/13/2024, 4:33pm). cf., POC glucose 154 mg/dL (11/13/2024, 8:30pm). Plan #Infected HD tunneled catheter - Admitted to med/surg unit - VS per unit protocol - OOB w/ assistance - PT/OT eval and tx - Consult vascular for catheter removal, tip should be cultured upon removal- growing staph epidermidis prelim - Made NPO this AM after breakfast for OR catheter removal - Continue empiric abx coverage but given h/o VRE, changed to dapto + fortaz--will de-escalate on 11/11 to just Dapto - Blood cultures collected x2 sets, NGTD - Wound cultures collected--pinpoint growth present and reincubating - For new HD catheter site to be placed on Tuesday 11/14 #ESRD - Continue HD MWF - [facility] nephrology consulted, appreciate assistance - Renal/CC diet can be resumed following OR catheter removal #DMT2 - Continue basal/bolus - Renal + CC diet as above - Accuchecks ac and hs - Last a1c 6.9% in October 2024 #Ischemic cardiomyopathy/HFrEF/CAD - Continue torsemide and entresto - Atorvastatin held while on Dapto #Hypothyroidism - Continue levothyroxine #Chronic pain - Continue liquid morphine and fentanyl patch VTE ppx with SCDs. Platelets 106 today. Defer further heparin products. AM labs ordered. De-escalate abx as noted above. Follow culture data. Plan of care d/w Dr. Fair. Admission and Anticipated Discharge Date Admission Date: November 09, 2024 Subjective "I feel fine. Tomorrow, I am getting the permanent dialysis catheter put in my left chest. The temporary dialysis catheter in my right groin will be taken out. I will then get dialysis through the new permanent dialysis catheter, and then I can go home." Review of Systems Constitutional: Negative for antecedent/coincident fevers, chills, diaphoresis, cough, wheeze, sore throat, hemoptysis, chest pains, palpitations, pleurisy, nausea, vomiting, diarrhea, abdominal pain, pelvic pain, hematemesis, hematochezia, melena, hematuria, dysuria, frequency, urgency, headaches, dizziness, lightheadedness, visual changes, hearing changes, weakness, falls, syncope, trauma, travel history, sick contacts, or food/drug ingestions novel or new. All other review of systems are reported as negative by the patient on 11/13/2024. Physical Exam Constitutional: General: Comfortable, cooperative, coherent. Patient speaks in complete, fluent, and articulate sentences without pause, interruption, cough, or wheeze. HEENT: Normocephalic, atraumatic. Pupils equally round and reactive to light. Extra-ocular muscles intact. No nystagmus, gaze paresis, anisocoria, miosis, mydriasis, hyphema, scleral injection, conjunctivitis, or pterygium. No rhinorrhea. No otorrhea. No pharyngeal erythema, edema, or discharge. Neck: Supple, no stridor, bruit, or hepato-jugular reflux. No lid lag. No exophthalmos/proptosis. Jugular venous pressure is estimated to be 3 cm above the sternal angle of Miguelangel, which in turn, is 5 cm above the level of the right atrium; with jugular venous pressure estimated to be 8 cm, then, there is no jugular venous distention on 11/13/2024. Lymphatics: Negative for anterior/posterior cervical, supraclavicular, infraclavicular, axillary, epitrochlear, or inguinal adenopathy. Chest: Symmetric rise and fall with respirations. Non-tender to palpation. Lungs: Clear to auscultation and percussion. No audible expiratory wheeze, egophony, pectoriloquy, increase in tactile fremitus, or fl atness/dullness to percussion at the bases. Heart: Regular rate. Regular rhythm. S1 and S2 noted. No S3 or S4 summation gallop. No tripartite friction rub. Grade III/ early systolic murmur @ LLSB without radiation to the carotids, axilla, or back, and which remains invariant in regards to the respiratory cycle. Abdomen: Soft, non-tender, non-distended. No rebound, guarding, Cerda's sign, or organomegaly. Bowel sounds auscultated in all 4 quadrants. Extremities: No clubbing, cyanosis, or edema in upper extremities or lower extremities bilaterally. 2+ pedal pulses bilaterally. Skin: No decubitus ulcer, exanthem, or enanthem. Genito-urinary: No urethral discharge. No parker catheter. Neurology: No myoclonus, tremors, or tics. Psychiatry: No homicidal ideation. No suicidal ideation. No flat affect; smiles appropriately. Results & Data Results & Data Vital Signs (Past 12 Hours) Vital Signs Temp Pulse Resp BP BP Pulse Ox O2 Del Method 11/13/24 20:11 36.9 C 68 16 153/72 H 96 Room Air 11/13/24 14:08 36.9 C 77 18 174/101 H 98 Room Air Laboratory Results Abnormal lab results 11/13/24 11/13/24 11/13/24 Range/Units 07:29 11:22 16:33 POC Glucose 114 H 146 H 169 H (70-99) mg/dl 11/13/24 Range/Units 20:30 POC Glucose 154 H (70-99) mg/dl PG Care Time/CCT Total # of Minutes Spent Total Time Spent with Patient: Total time spent is greater than 50% in coordination of care (as documented) at patient's floor/unit and/or counseling patient: Coding Level of Care Code 54592 SUB INP/OBS CARE 2/35MIN Diagnoses Infection of hemodialysis catheter, initial encounter T82.7XXA Encounter type: initial encounter Thrombocytopenia D69.6 ESRD (end stage renal disease) on dialysis N18.6; Z99.2 Hypothyroidism E03.9 Diabetes E11.9 (1) Hemodialysis catheter infection Encounter type: initial encounter Qualified Code(s): T82.7XXA - Infection and inflammatory reaction due to other cardiac and vascular devices, implants and grafts, initial encounter
[2024-11-14 09:49] LABS: Hematocrit (blood only) 30.1 % (37.0-47.0); Hemoglobin 10.4 g/dl (12.0-16.0); Mean Corpuscular Hemoglobin 31.4 pg (25.0-34.0); Mean Corpuscular Volume 90.9 fL (80.0-100.0); Platelet Count 99 K/uL (130-400); RDW Standard Deviation 44.3 fL (36.4-46.3); Red Blood Count 3.31 M/uL (4.20-5.40); White Blood Count 7.03 K/ul (4.8-10.8)
[2024-11-14 09:50] LABS: Immature Granulocytes # (auto) 0.02 K/uL (0.01-0.20); Immature Granulocytes % (auto) 0.3 %
--- NOTE | 2024-11-14 09:50 | History & Physical Bridge Note ---
Date of Service November 14, 2024 History & Physical Bridge Note Patient for insertion of permcath today. I have discussed the risks options and benefits of the procedure with the patient. The patient understands the risks options and benefits and agrees to the procedure. I have examined the patient, reviewed the History & Physical and in the interval since the performance of the History & Physical I have noted the following changes of clinical significance: no changes noted
--- NOTE | 2024-11-14 10:44 | Pre Anesthesia Assessment ---
Date of Service November 14, 2024 Pre Sedation Assessment Vital Signs Temp Pulse Pulse Pulse Resp BP BP 11/14/24 09:14 36.6 C 70 71 18 152/75 H 11/14/24 07:46 36.9 C 68 16 133/71 11/13/24 21:51 11/13/24 20:11 36.9 C 68 16 153/72 H 11/13/24 14:08 36.9 C 77 18 174/101 H Pulse Ox O2 Del Method 11/14/24 09:14 98 Room Air 11/14/24 07:46 98 Room Air 11/13/24 21:51 Room Air 11/13/24 20:11 96 Room Air 11/13/24 14:08 98 Room Air Cardiovascular RRR, no murmur, no edema Respiratory normal respiratory effort, lungs clear to auscultation Pre-Sedation Airway Assessment Smoking Status: Never smoker Hx Sleep Apnea: No Short, Thick Neck: Yes Thyromental Distance: > or= 3.5 Finger Breadths Oral Cavity: + Loose Teeth Mallampati Class: II ASA: ASA3 NPO Status Date of Last Intake of Fluids: 11/13/24 Time of Last Intake of Fluids: 22:30 Date of Last Intake of Solid Food: 11/13/24 Time of Last Intake of Solid Foods: 17:30 Procedure Planning Contraindications for Sedation: none Current Medications Reviewed: Yes Notes The planned sedation has been discussed with the patient. Informed Consent was obtained. I have identified the patient, determined the appropriateness of sedation and have assessed the patient immediately prior to the procedure. All medicine(s) and interventions are by my order.
[2024-11-14] MEDS: MIDAZOLAM HCL 1 MG/ML 2ML VIAL ONE (10:45)
[2024-11-14] MEDS: LIDOCAINE 1% LOCAL 20 ML VIAL ONE (11:16)
[2024-11-14] MEDS: HEPARIN SOD (PORCINE) 5,000 UNITS/ML VIAL ONE (11:16)
--- NOTE | 2024-11-14 11:19 | Post Anesthesia Assessment ---
Date of Service November 14, 2024 Post Sedation Assessment Vital Signs Temp Pulse Pulse Pulse Pulse Resp BP 11/14/24 11:15 80 16 125/68 11/14/24 11:10 83 32 H 126/70 11/14/24 11:05 79 34 H 120/61 11/14/24 11:00 67 27 H 83/48 L 11/14/24 10:55 69 24 128/72 11/14/24 10:50 75 25 H 160/75 H 11/14/24 10:45 75 21 156/74 H 11/14/24 10:38 74 17 151/74 H 11/14/24 09:14 36.6 C 70 71 18 11/14/24 07:46 36.9 C 68 16 133/71 11/13/24 21:51 11/13/24 20:11 36.9 C 68 16 153/72 H 11/13/24 14:08 36.9 C 77 18 BP Pulse Ox O2 Del Method O2 Flow Rate 11/14/24 11:15 100 Oxymask 4 11/14/24 11:10 100 Oxymask 4 11/14/24 11:05 100 Oxymask 4 11/14/24 11:00 100 Oxymask 4 11/14/24 10:55 100 Oxymask 4 11/14/24 10:50 100 Oxymask 4 11/14/24 10:45 100 Oxymask 4 11/14/24 10:38 100 Oxymask 4 11/14/24 09:14 152/75 H 98 Room Air 11/14/24 07:46 98 Room Air 11/13/24 21:51 Room Air 11/13/24 20:11 96 Room Air 11/13/24 14:08 174/101 H 98 Room Air Recovery Score Activity: Moves 4 extremities Respiration: Deep Breath/Cough Circulation: +/-20% PreAnes Value Consciousness: Fully Awake Oxygen Saturation: > 92% On Room Air Post Anesthesia Score: 10 Discharge Sedation Level of Care: Fast Track Phase II Post Sedation Plan On clinical assessment, the patient appears to have tolerated the sedation without complications. Patient is recovering as anticipated. Patient will continue to be monitored by nursing and may be discharged when sedation discharge criteria are met per below protocol. Upon Completions of procedure up to 15 minutes continue every 5 minute vital signs and the P.A.R. score; then discharge to a Phase I or Fast Track to Phase II per the following guidelines: * Discharge Patient to appropriate Phase II area if PAR is 8 or greater or return to pre- procedure baseline. The post - procedure orders will be as directed. * If PAR score is less than 8 or not return to pre-procedure baseline then patient will follow Phase I monitoring till PAR is reached for Phase II. The Phase I may be done in procedure room or may call to secure a Phase I area. * If naloxone or flumazenil are used for reversal, hold in Phase I for continued monitoring from when last reversal dose was given for a minimum of 60 minutes or longer pending the nurse and/or physician discretion of patient condition before discharge to Phase II. Please call the Sedation Physician to re-evaluate and complete post-note for discharge to Phase II area. Do NOT discharge from procedure sedation or Phase 1 until post- sedation evaluation note is complete by procedure /sedation MD Sedation Discharge Instructions to be given to the patient at discharge to home.
--- NOTE | 2024-11-14 11:19 | Operative Report ---
Post Operative Report Pre & Post Diagnosis Operation Date: 11/14/24 09:50 Pre-Op Diagnosis: End stage renal disease post op diagnosis: End stage renal disease I identified the patient and participated in the time-out.: Yes Procedure Operation Date: 11/14/24 09:50 Actual Procedures p Perm Catheter Insertion,Left Internal Jugular Approach,Ultrasound Localization of Left Internal Jugular Vein, Fluoroscopy for Positioning,Removal of Right Femoral Temporary Dialysis Port,Moderate Sedation [id number](Left) - Inocencio Pablo MD Surgeon Inocencio Pablo MD Mdm Sr none Estimated Blood Loss 5 Findings Consistent with Post-Op Diagnosis Specimens none Anesthesia Type RN Sedation Complications none Disposition Accompanied Patient To Recovery: No Disposition: Recovery Room Indications This is a 74-year-old female with a PermCath removed due to infection. She is now here to have a new one inserted for dialysis. We will remove her temporary after the new and is in place. I have discussed the risks options and benefits of the procedure with the patient. The patient understands the risks options and benefits and agrees to the procedure. Description of Procedure Patient was taken to the angio suite and placed in the supine position. The left side of the neck and chest wall were prepped and draped in a sterile manner. The patient was identified and a timeout performed. Local anesthesia was then administered to the appropriate areas of the neck and chest wall. Ultrasound was then used to locate the left internal jugular vein. The vein compressed easily, had no filing defects, and was patent. The vein was then punctured under direct ultrasound imaging. A guidewire was then passed centrally under fluoroscopic imaging. A stab wound was then made in the anter ior chest wall and a 23 cm permcath was passed from the stab wound on the chest wall to the puncture site on the neck. The puncture site was then dilated till the 14Fr peel away sheath was inserted. The permcath was then inserted through the sheath to a central position in the distal superior vena cava. The peel away sheath was then removed. The catheter was then sutured in place using nylon sutures. The puncture was then closed using a 4-0 Vicryl subcuticular suture. Dermabond was used for a dressing on the puncture site. Both ports aspirated and flushed easily and were then packed with heparin. A sterile dressing was applied to the catheter. The dressing was then removed from the right groin. Sutures were removed. The temporary dialysis catheter was pulled pressure was applied and hemostasis obtained. Sterile dressings were applied to this wound. the patient left the operation room in satisfactory condition and tolerated the procedure well. All needle and sponge counts were correct at the end of the procedure. I attest to the content of the Intraoperative Record and any orders documented therein. Any exceptions are noted below.
--- NOTE | 2024-11-14 15:02 | Discharge Summary ---
Discharge Summary Date of Service November 14, 2024 Principal Dx & Hospital Course #1 = Principal Diagnosis (1) Hemodialysis catheter infection: Afebrile, non-toxic physical exam on hospital discharge date/time 11/14/2024, 5:00pm. cf., admission physical exam (11/09/2024, 3:28pm): "tunneled catheter noted exiting right chest wall with purulent drainage surrounding catheter noted. Surrounding skin erythematous and tender." (as noted on by [facility] Hospitalist Ms. Layne Wright in [facility] ER). Patient received ceftazidime 1g IV x 2 doses (11/09/2024, 2:55pm; 11/10/2024, 4:57pm), daptomycin 700mg IV q48 hours x 1 dose (11/11/2024, 5:52pm) while in [facility] from admission date 11/09/2024 through discharge date 11/14/2024, to treat methicillin-resistant Staphylococcus epidermidis- associated permanent hemodialysis right internal jugular vein catheter (as noted on 11/09/2024, 2:20pm permanent hemodialysis catheter wound site; as noted on 11/10/2024 permanent hemodialysis right internal jugular vein catheter tip culture) with NO signs of bacteremia: cf., blood culture #1 (11/09/2024, 1:54pm): negative/normal cf., blood culture #2 (11/09/2024, 2:21pm): negative/normal Patient also underwent the following 3 procedures while in [facility] from admission date 11/09/2024 through discharge date 11/14/2024: 1. Infected right internal jugular vein tunneled catheter REMOVED (11/10/2024, 9:50am, [facility] Vascular Surgeon Dr. Inocencio Pablo). 2. Temporary dialysis catheter inserted in right femoral vein (11/11/2024, 9:50am, [facility] Vascular Surgeon Dr. Inocencio Pablo). 3. Permanent dialysis catheter inserted in left internal jugular vein (11/14/2024, 9:50am, [facility] Vascular Surgeon Dr. Inocencio Pablo). Patient subsequently underwent hemodialysis utilizing permanent dialysis cat heter inserted in left internal jugular vein (11/14/2024, 9:50am, [facility] Vascular Surgeon Dr. Inocencio Pablo) and tolerated hemodialysis well. Patient was subsequently discharged to [facility] ([address] [place] [address]) on 11/14/2024, 5:00pm. Patient will start clindamycin 300mg PO q6 [start date/time (first dose), 11/14/2024, 6:00pm; stop date/time (last dose), 11/19/2024, 12:00pm] after patient arrives @ [facility] ([address] [place] [address]) on 11/14/2024, 5:00pm, to complete a total of 7 days of antibiotic (IV and PO) therapy as recommended by [facility] Infectious Disease Service to treat this methicillin-resistant Staphylococcus epidermidis-associated permanent hemodialysis right internal jugular vein catheter (as noted on 11/09/2024, 2:20pm permanent hemodialysis catheter wound site; as noted on 11/10/2024 permanent hemodialysis right internal jugular vein catheter tip culture) with NO signs of bacteremia: cf., blood culture #1 (11/09/2024, 1:54pm): negative/normal cf., blood culture #2 (11/09/2024, 2:21pm): negative/normal (2) Thrombocytopenia: cf., platelet 123 (11/09/2024, 12:57pm). cf., platelet 114 (11/10/2024, 7:15am). cf., platelet 106 (11/11/2024, 7:16am). cf., platelet 109 (11/12/2024, 5:35am). cf., platelet 99 (11/14/2024, 9:10am). cf., chronic thrombocytopenia with progressive decline in baseline platelet count range, 126 (05/03/2024, 1:10pm) to 54 (05/16/2024, 4:30am). Patient reported no mucosal bleeding while in [facility]. Etiology of chronic thrombocytopenia remains unclear, but may be due to patient's home-scheduled protonix 40mg PO bid. Subsequently, patient received her home-scheduled protonix 40mg PO bid x 10 doses (11/09/2024, 7:53pm through 11/14/2024, 8:55am) while in [facility]. Patient will NOT continue this medication on hospital discharge to [facility] ([address] [place] [address]) on 11/14/2024, 5:00pm. Patient was advised to undergo repeat platelet count testing @ [facility] ([address] [place] [address]) within 5-7 days of hospital discharge. Patient reports that she will comply with this recommendation. (3) ESRD (end stage renal disease) on dialysis: Continue HD on a Thu-Thu-Thu schedule as per patient's report, with next HD on Thu (11/15/2024), after which, patient was subsequently discharged to [facility] ([address] [place] [address]) on 11/14/2024, 5:00pm. (4) Hypothyroidism: Patient has no goiter, lid lag, or proptosis on exam. Patient appears to be euthyroid on home-scheduled synthroid 175ug PO qam with screening TSH normal at 1.894 uIU/mL (10/18/2024, 3:50am). Patient will continue with home-scheduled synthroid 175ug PO qam (last administered on 11/13/2024, 8:31pm) on hospital discharge to [facility] ([address] [place] [address]) on 11/14/2024, 5:00pm. (5) Diabetes: Long-term glycemic control remains unknown, despite HbA1c 6.9% (10/18/2024, 3:50am), which might suggest, at first glance, that long-term glycemic control is modest. The reason that long-term glycemic control remains unknown in this patient is due to patient's chronic normocytic, normochromic anemia with baseline Hb range, 9.5 - 11.5 g/dL (08/04/2021 - 10/04/2024). Of note, in diabetic patients who are anemic, increased RBC turnover leads to concomitant reductions in both Hb and HbA1c levels, thereby rendering HbAlc levels meaningless in assessing long-term glycemic control. Hence, attention turns towards serum glucose levels: cf., serum glucose 176 mg/dL (11/09/2024, 12:57pm). cf., serum glucose 170 mg/dL (11/09/2024, 2:21pm). cf., serum glucose 72 mg/dL (11/10/2024, 7:15am). cf., serum glucose 79 mg/dL (11/11/2024, 7:16am). cf., serum glucose 65 mg/dL (11/12/2024, 5:35am). cf., POC glucose 66 mg/dL (11/12/2024, 7:26am). cf., POC glucose 68 mg/dL (11/12/2024, 7:28am). cf., POC glucose 87 mg/dL (11/12/2024, 7:56am). cf., POC glucose 119 mg/dL (11/12/2024, 11:41am). cf., POC glucose 97 mg/dL (11/12/2024, 4:37pm). cf., POC glucose 203 mg/dL (11/12/2024, 8:30pm). Given the labile nature of patient's short-term glycemic control, I opted to D/C immediately patient's home-scheduled lantus 10 units SQ qha, hospital-started lispro insulin sliding scale qac + qhs, and will let the patient's POC glucose levels run untreated, irrespective of how high patient's POC glucose levels may rise. cf., POC glucose 119 mg/dL (11/12/2024, 11:41am). cf., POC glucose 97 mg/dL (11/12/2024, 4:37pm). cf., POC glucose 203 mg/dL (11/12/2024, 8:30pm). cf., POC glucose 114 mg/dL (11/13/2024, 7:29am). cf., POC glucose 146 mg/dL (11/13/2024, 11:22am). cf., POC glucose 169 mg/dL (11/13/2024, 4:33pm). cf., POC glucose 154 mg/dL (11/13/2024, 8:30pm). cf., POC glucose 146 mg/dL (11/14/2024, 5:38am). cf., POC glucose 121 mg/dL (11/14/2024, 9:17am). cf., POC glucose 110 mg/dL (11/14/2024, 11:53am). Plan #Infected HD tunneled catheter - Admitted to med/surg unit - VS per unit protocol - OOB w/ assistance - PT/OT eval and tx - Consult vascular for catheter removal, tip should be cultured upon removal- growing staph epidermidis prelim - Made NPO this AM after breakfast for OR catheter removal - Continue empiric abx coverage but given h/o VRE, changed to dapto + fortaz--will de-escalate on 11/11 to just Dapto - Blood cultures collected x2 sets, NGTD - Wound cultures collected--pinpoint growth present and reincubating - For new HD catheter site to be placed on Tuesday 11/14 #ESRD - Continue HD MWF - [facility] nephrology consulted, appreciate assistance - Renal/CC diet can be resumed following OR catheter removal #DMT2 - Continue basal/bolus - Renal + CC diet as above - Accuchecks ac and hs - Last a1c 6.9% in October 2024 #Ischemic cardiomyopathy/HFrEF/CAD - Continue torsemide and entresto - Atorvastatin held while on Dapto #Hypothyroidism - Continue levothyroxine #Chronic pain - Continue liquid morphine and fentanyl patch VTE ppx with SCDs. Platelets 106 today. Defer further heparin products. AM labs ordered. De-escalate abx as noted above. Follow culture data. Plan of care d/w Dr. Fair. Admission HPI Per Admitting Provider Saida is a 74 yo F with a pmhx of DMT2, hypothyroidism, ESRD on HD MWF, CAD, ischemic cardiomyopathy, chronic pain, h/o VRE and MRSA who presents from [facility] today d/t infected tunneled dialysis catheter. She reports that the catheter was inserted 3 years ago when she first started dialysis. She has never had an issues up until yesterday she started noticing some soreness at the catheter site. She went for her regularly scheduled dialysis session today and nursing staff noticed the area was red and draining more than usual. A culture was taken and she was sent directly to [facility] following her dialysis session for further work up. She denies fevers at the facility and she is afebrile here. She has a h/o staph bacteremia in 2021. She also has a h/o VRE. Nephrology suggested Fortaz and Vancomycin empirically with vascular surgery eval for catheter removal. She is currently awake and alert, requesting something for her chronic leg pain. She normally takes liquid morphine for this. She otherwise has no complaints. She has been referred to hospital medicine team for admission. Discharge Exam Constitutional General: Comfortable, cooperative, coherent. Patient speaks in complete, fluent, and articulate sentences without pause, interruption, cough, or wheeze. HEENT: Normocephalic, atraumatic. Pupils equally round and reactive to light. Extra-ocular muscles intact. No nystagmus, gaze paresis, anisocoria, miosis, mydriasis, hyphema, scleral injection, conjunctivitis, or pterygium. No rhinorrhea. No otorrhea. No pharyngeal erythema, edema, or discharge. Neck: Supple, no stridor, bruit, or hepato-jugular reflux. No lid lag. No exophthalmos/proptosis. Jugular venous pressure is estimated to be 3 cm above the sternal angle of Miguelangel, which in turn, is 5 cm above the level of the right atrium; with jugular venous pressure estimated to be 8 cm, then, there is no jugular venous distention on 11/14/2024. Left internal jugular vein hemodialysis catheter (inserted on 11/14/2024, 9:50am, [facility] Vascular Surgeon Dr. Inocencio Pablo) with no surrounding erythema, edema, induration, warmth, tenderness, crepitus, fluctuance, discharge (sanguineous, serous, suppurative), ulceration, malodor, or lymphangitic streaking. Lymphatics: Negative for anterior/posterior cervical, supraclavicular, infraclavicular, axillary, epitrochlear, or inguinal adenopathy. Chest: Symmetric rise and fall with respirations. Non-tender to palpation. Lungs: Clear to auscultation and percussion. No audible expiratory wheeze, egophony, pectoriloquy, increase in tactile fremitus, or flatness/dullness to percussion at the bases. Heart: Regular rate. Regular rhythm. S1 and S2 noted. No S3 or S4 summation gallop. No tripartite friction rub. Grade III/ early systolic murmur @ LLSB without radiation to the carotids, axilla, or back, and which remains invariant in regards to the respiratory cycle. Abdomen: Soft, non-tender, non-distended. No rebound, guarding, Cerda's sign, or organomegaly. Bowel sounds auscultated in all 4 quadrants. Extremities: No clubbing, cyanosis, or edema in upper extremities or lower extremities bilaterally. 2+ pedal pulses bilaterally. Skin: No decubitus ulcer, exanthem, or enanthem. Genito-urinary: No urethral discharge. No parker catheter. Neurology: No myoclonus, tremors, or tics. Psychiatry: No homicidal ideation. No suicidal ideation. No flat affect; smiles appropriately. Discharge Plan Discharge Items Patient Disposition: Transfer Nursing Home Fac Reason For Visit: INFECTED TUNNELED CATHETER Discharge Diagnosis: 1. Infected right internal jugular vein tunneled catheter REMOVED (11/10/2024, 9:50am, [facility] Vascular Surgeon Dr. Inocencio Pablo). 2. Temporary dialysis catheter inserted in right femoral vein (11/11/2024, 9:50am, [facility] Vascular Surgeon Dr. Inocencio Pablo). 3. Permanent dialysis catheter inserted in left internal jugular vein (11/14/2024, 9:50am, [facility] Vascular Surgeon Dr. Inocencio Pablo). 4. Methicillin-resistant Staphylococcus epidermidis-associated permanent hemodialysis right internal jugular vein catheter (as noted on 11/09/2024, 2:20pm permanent hemodialysis catheter wound site; as noted on 11/10/2024 p ermanent hemodialysis right internal jugular vein catheter tip culture). Condition on Discharge: Good Activity: Resume your previous activity Bathing: No limitations Exercise/Sports: Gradually increase as tolerated Driving/Machine Use: No limitations Weightbearing: Full weightbearing Non-emergency contact: Primary Care Provider Call non-emergency contact if: you have any medication questions Follow-up/Referrals: Florencio Osborn III, MD [Primary Care Provider] - Inocencio Pablo MD [Physician] - (See your Vascular Surgeon Dr. Inocencio Pablo within 5-7 days of hospital discharge.) Diet: Heart Healthy Addtl Attending Provider Instructions: 1. See your PCP Dr. Florencio Osborn within 5-7 days of hospital discharge. 2. See your Vascular Surgeon Dr. Inocencio Pablo within 5-7 days of hospital discharge. Pending Studies at Discharge: Yes Studies:: Check platelet count within 5-7 days of hospital discharge AFTER stopping home-scheduled protonix 40mg PO bid (last administered on 11/14/2024, 8:55am) as protonix can lower platelet counts. Stand-Alone Forms: My [facility] Skilled Items Patient informed of condition?: Yes DNR: Yes Discharge Level of Care: Skilled Communicable Disease: No Discharge Prognosis: Stable Lines: None Urinary Catheter: No Medications and DC Order Prescriptions: New clindamycin HCl [Cleocin HCl] 300 mg Capsule 300 mg PO Q6 Qty: 20 0RF Continued multivitamin Tablet 1 tab PO HS sennosides-docusate sodium [Senokot-S] 8.6-50 mg Tablet 1 tab-cap PO BID Rx Instructions: 1229 & 2029 polyethylene glycol 3350 [Miralax] 17 gram/dose Powder See Rx Instructions .ROUTE .COMPLEX Rx Instructions: TAKES 17 GRAMS--MON, WED & FRI TAKES AT 0600 & 1630, ON SUN, TUES, THURS, & SAT TAKES AT 0830 & 1630. cholecalciferol (vitamin D3) [Vitamin D3] 125 mcg (5,000 unit) Tablet 125 mcg PO HS bisacodyl [Dulcolax (bisacodyl)] 10 mg Suppository 10 mg DC DAILY PRN (Reason: Constipation) Rx Instructions: GIVE DAY 3 IF NO BM FOLLOWING MOM Fleet Enema 19-7 gram/118 mL Enema 118 ml DC UD PRN (Reason: Constipation) Rx Instructions: IF NO BM FOLLOWING DULCOLAX atorvastatin 80 mg tablet 80 mg PO HS acetaminophen [Tylenol] 325 mg Tablet 650 mg PO Q6 MDD 3gmAPAP/24hr PRN (Reason: Fever) Rx Instructions: GIVE FOR TEMP >100, gabapentin 100 mg capsule 100 mg PO TID Rx Instructions: 1229, 1629 & 2029 insulin glargine [Lantus U-100 Insulin] 100 unit/mL solution 10 unit SUBCUT HS Velphoro 500 mg tablet,chewable 500 mg PO TIDM midodrine 5 mg Tablet 5 mg PO DIRECTED PRN (Reason: SBP <95 DURING DIALYSIS) Veltassa 8.4 gram Powder In Packet 8.4 g PO 4XWK Rx Instructions: SUN, TUES, THURS & SAT AT 1100 levothyroxine 175 mcg Tablet 175 mcg PO HS torsemide 20 mg tablet 120 mg PO 2XWK Rx Instructions: Tues/Sat ondansetron HCl 4 mg tablet 4 mg PO Q6H PRN (Reason: Nausea And Vomiting) ondansetron HCl 4 mg tablet 4 mg PO 3XWK Rx Instructions: Mon/Wed/Fri AT 1200 vitamin B complex Tablet 1 tab PO HS protein supplement Liquid See Rx Instructions .ROUTE .COMPLEX Rx Instructions: MON, WED, & FRI--TAKES WITH LUNCH, THEN SUN, TUES, THURS & SAT--TAKES WITH BREAKFAST & SUPPER. diclofenac sodium 1 % Gel 2 g TOPICAL QID Velphoro 500 mg tablet,chewable 500 mg PO DAILY PRN (Reason: W/Snacks) Entresto 24-26 mg tablet 1 tab PO QDL Artificial Tears (cmc) 1 % Drops 2 drp OPB BIDM insulin lispro [Humalog U-100 Insulin] 100 unit/mL solution 0 sliding scale dose continuous subcutaneous infusion ACHS Rx Instructions: INJECT PER SLIDING SCALE: 150-200=2 units, 201-250=4 units, 250- 300=8UNITS, 301-350=12UNITS, 351-400 = 16 units, 401-GREATER = 18 units then recheck in 1 hour. Report CSG's <70 or >401 to MD/RIVETING MACHINE OPERATOR TAPE CONTROL, TIDM AND BEDTIME morphine concentrate 100 mg/5 mL (20 mg/mL) solution 10 mg PO 3XWK Qty: 30 0RF Rx Instructions: Mon/Wed/Fri AT 0630 morphine concentrate 100 mg/5 mL (20 mg/mL) solution 10 mg PO Q4H PRN (Reason: Pain) Qty: 30 0RF midodrine 10 mg tablet 10 mg PO 3XWK Qty: 0 0RF Rx Instructions: Mon/Wed/Fri prior to dialysis. HOLD FOR SBP >140 Discontinued pantoprazole 40 mg tablet,delayed release (DR/EC) 40 mg PO BID Rx Instructions: 1230 & 2030 Discharge Orders: Discharge Order (Routine); Ordered 11/14/24 Ordered By: Frandy Lowery Discharge Order- CHF (Routine); Ordered 11/14/24 Ordered By: Frandy Lowery Admission Data Admit Date/Time: 11/09/24 15:27 Attending Provider: Frandy Lowery Admit Provider: Lalit Roberson Primary Care Provider: Florencio Osborn III Other Providers: [facility]; Lalit Roberson; Gerson Paulson; Inocencio Pablo Hospital Stay Data Consultations 11/09/24 14:20 ED Decision to Admit Stat 11/09/24 17:08 Consult Nephrology Routine Consult Vascular Surgery Routine Procedures Performed Operation Date: 11/14/24 09:50 Actual Procedures p Perm Catheter Insertion,Left Internal Jugular Approach,Ultrasound Localization of Left Internal Jugular Vein, Fluoroscopy for Positioning,Removal of Right Femoral Temporary Dialysis Port,Moderate Sedation [id number](Left) - Inocencio Pablo MD Diagnostic Imagining Performed 11/11/24 07:13 EV cvc insert non tunnel Routine US EV guide vascular access Routine 11/14/24 07:39 EV cvc insrt tunnel wo prt/strategic alliances manager Routine US EV guide vascular access Routine Pending Results Patient Have Any Pending Studies at Discharge: No Discharge Instructions Given to Patient (Per Discharging Provider) 1. See your PCP Dr. Florencio Osborn within 5-7 days of hospital discharge. 2. See your Vascular Surgeon Dr. Inocencio Pablo within 5-7 days of hospital discharge. Total Time Total Time Spent Total Time Spent (In Minutes): 35 minutes. Of this time period, 19 minutes were spent in coordinating patient's discharge. Coding Level of Care Code 33120 INP/OBS DISCH >30 MIN Diagnoses Infection of hemodialysis catheter, initial encounter T82.7XXA Encounter type: initial encounter Thrombocytopenia D69.6 ESRD (end stage renal disease) on dialysis N18.6; Z99.2 Hypothyroidism E03.9 Diabetes E11.9
--- NOTE | 2024-11-14 16:59 | Nephrology Progress Note ---
Date of Service November 14, 2024 Assessment & Plan (1) Infection of exit site of hemodialysis catheter: Plan: these infections are not treatable w/ systemic antibiotics cath tip w/ meth resistant S epi; as is exit site of cath; blood cxs NGTD -TDC removed 11/10, temp cath placed 11/11>> vascular assistance appreciated; new L sided TDC for 11/14 assuming cxs negative -monitor for sepsis -- no concerns so far -continue abtx 10 days daptomycin >> end date 11/21 >> instead she will take clindamycin per inf dzs per hospitalist report -will follow up on [facility] exit site and blood cultures as they post -follow pending blood cultures here (2) ESRD (end stage renal disease) on dialysis: Plan: she has chronic volume overload and HFpEF w/ ; she is on RA currently; had full HD 11/10 -plan next HD today after TDC placement Admission and Anticipated Discharge Date Admission Date: November 09, 2024 Subjective delayed note entered for noon encounter > pt seen just after returning from TDC placement > no sob, no uncontrolled pain or edema; hungry; still a bit sore over R exit site Review of Systems 2 Review of Systems: All systems reviewed & are unremarkable except as noted in Subjective Physical Exam 2 Constitutional: well developed (sitting up in bedon RA), well nourished and + physical limitations; no acute distress Eyes: EOM intact bilaterally ENMT: Mouth: + dry oral mucous membranes Neck: no nuchal rigidity Respiratory: normal respiratory effort Auscultation: + diminished lung sounds Cardiovascular: Rate/Rhythm: regular rate and regular rhythm Heart Sounds: + murmur Extremities: no edema Gastrointestinal (Abdomen): Inspection/Auscultation: normal bowel sounds P ercussion/Palpation: abdomen soft; abdomen nontender Musculoskeletal: Extremities: strength 5/5 throughout Skin: no rashes, warm and dry Results & Data Vital Signs (Past 12 Hours) Vital Signs Temp Pulse Pulse Pulse Pulse Pulse Resp 11/14/24 16:00 60 11/14/24 15:41 61 11/14/24 15:30 64 11/14/24 15:15 71 11/14/24 15:00 73 11/14/24 14:30 75 11/14/24 14:00 79 11/14/24 13:30 79 11/14/24 13:15 80 11/14/24 13:00 75 11/14/24 12:45 72 11/14/24 12:35 74 11/14/24 12:29 36.5 C 73 11/14/24 12:11 36.5 C 73 16 11/14/24 11:40 70 11/14/24 11:20 74 20 11/14/24 11:15 80 16 11/14/24 11:10 83 32 H 11/14/24 11:05 79 34 H 11/14/24 11:00 67 27 H 11/14/24 10:55 69 24 11/14/24 10:50 75 25 H 11/14/24 10:45 75 21 11/14/24 10:38 74 17 11/14/24 09:14 36.6 C 70 71 18 11/14/24 07:46 36.9 C 68 16 BP BP BP Pulse Ox O2 Del Method O2 Flow Rate 11/14/24 16:00 105/51 L 11/14/24 15:41 104/56 L 11/14/24 15:30 84/43 L 11/14/24 15:15 111/59 L 11/14/24 15:00 81/55 L 11/14/24 14:30 98/58 L 11/14/24 14:00 135/68 11/14/24 13:30 134/76 11/14/24 13:15 165/80 H 11/14/24 13:00 97/57 L 11/14/24 12:45 148/97 H 11/14/24 12:35 175/87 H 11/14/24 12:29 11/14/24 12:11 146/73 H 93 Room Air 11/14/24 11:40 130/69 97 Room Air 11/14/24 11:20 112/72 100 Oxymask 4 11/14/24 11:15 125/68 100 Oxymask 4 11/14/24 11:10 126/70 100 Oxymask 4 11/14/24 11:05 120/61 100 Oxymask 4 11/14/24 11:00 83/48 L 100 Oxymask 4 11/14/24 10:55 128/72 100 Oxymask 4 11/14/24 10:50 160/75 H 100 Oxymask 4 11/14/24 10:45 156/74 H 100 Oxymask 4 11/14/24 10:38 151/74 H 100 Oxymask 4 11/14/24 09:14 152/75 H 98 Room Air 11/14/24 07:46 133/71 98 Room Air Laboratory Results 11/14/24 09:10 11/12/24 05:35
[2024-11-14 17:22] VITALS: RESP 18; TEMP 98.1; O2SAT 96
[2024-11-14 17:39] VITALS: BP 116/65
[2024-11-14 17:43] VITALS: PULSE 80
== END 2024-11-14 17:53 | DRG 314 ==
LOC: ED 12:42 → SUATTDRO 15:27 → 3E 15:27